=== PATIENT | female | born 1940 | race Caucasian/White ===

== ENCOUNTER → 2018-04-24 14:43 | Outpatient (CLI) | payer MEDICARE, BC, SELFPAY ==
--- NOTE | 2018-04-24 | DI.MG.S_ITS ---
BILATERAL DIGITAL SCREENING MAMMOGRAM 3D/2D WITH CAD: 04/24/2018 CLINICAL: Routine screening. Comparison is made to exams dated: 04/22/2017 mammogram, 04/01/2016 mammogram, and 03/30/2015 mammogram - [facility]. The tissue of both breasts is heterogeneously dense. This may lower the sensitivity of mammography. Current study was also evaluated with a Computer Aided Detection (CAD) system. There is a calcification in the left breast at 1 o'clock posterior depth. No other significant masses, calcifications, or other findings are seen in either breast. IMPRESSION: INCOMPLETE: NEEDS ADDITIONAL IMAGING EVALUATION The calcification in the left breast is indeterminate. Additional views with possible ultrasound are recommended. This exam was interpreted at Station ID: [id number]. NOTE: For mammograms, a report in lay terms will be sent to the patient. Approximately 15% of breast malignancies will not be visualized mammographically. In the management of a palpable breast mass, a negative mammogram must not discourage biopsy of a clinically suspicious lesion. Electronically Signed By: Louis hardy/hazel:04/24/2018 15:43:52 letter sent: Additional Imaging Needed ACR BI-RADS Category 0: Incomplete 3340F
== END ==
PROVIDERS: PCP Internal Medicine; Visit Provider Internal Medicine
DX: Z12.31 Encounter for screening mammogram for malignant neoplasm of breast (principal)
CPT/HCPCS: 77063; 77067

== ENCOUNTER → 2018-05-08 08:43 | Outpatient (CLI) | payer MEDICARE, BC, SELFPAY ==
--- NOTE | 2018-05-08 08:47 | DI.MG.S_ITS ---
UNILATERAL LEFT DIGITAL DIAGNOSTIC MAMMOGRAM 3D/2D WITH ADDITIONAL VIEWS: 05/08/2018 CLINICAL: Additional evaluation requested from prior study. Comparison is made to exams dated: 04/24/2018 mammogram, 04/22/2017 mammogram, and 04/01/2016 mammogram - [facility]. The tissue of the left breast is heterogeneously dense. This may lower the sensitivity of mammography. There is a benign coarse dystrophic calcification in the left breast at 1 o'clock posterior depth. No other significant masses or calcifications are seen in the breast. IMPRESSION: BENIGN There is no mammographic evidence of malignancy. A 1 year screening mammogram is recommended. This exam was interpreted at Station ID: [id number]. NOTE: For mammograms, a report in lay terms will be sent to the patient. Approximately 15% of breast malignancies will not be visualized mammographically. In the management of a palpable breast mass, a negative mammogram must not discourage biopsy of a clinically suspicious lesion. Electronically Signed By: Louis hardy/hazel:05/08/2018 12:40:26 letter sent: Normal Exam ACR BI-RADS Category 2: Benign Finding(s) 3342F
== END ==
PROVIDERS: PCP Internal Medicine; Visit Provider Internal Medicine
DX: R92.1 Mammographic calcification found on diagnostic imaging of breast (principal)
CPT/HCPCS: 77065; G0279

== ENCOUNTER → 2018-07-28 15:55 | Outpatient (CLI) | payer MEDICARE, BC, SELFPAY | PROVIDERS: PCP Internal Medicine; Visit Provider Internal Medicine | DX: N90.4 Leukoplakia of vulva (principal) | CPT/HCPCS: 87070; 87205 ==

== ENCOUNTER → 2018-10-30 08:48 | Outpatient (CLI) | payer MEDICARE, BC, SELFPAY ==
[2018-10-30 12:42] LABS: Appearance Urine UA CLOUDY; Bilirubin Urine UA NEGATIVE (NEGATIVE); Color Urine UA YELLOW; Glucose Urine UA NEGATIVE (Normal); Ketones Urine UA NEGATIVE (NEGATIVE); Leukocyte Esterase Urine UA 2+ (NEGATIVE); Nitrite Urine UA POSITIVE (Negative); Occult Blood Urine UA 1+ (Negative); Protein Urine UA TRACE (Negative); Urobilinogen Urine UA 0.2 E.U./dL (0.2)
[2018-10-30 12:57] LABS: RBC Urine 1-5/HPF (0-5/HPF)
[2018-10-30 12:58] LABS: Amorphous Sediment Urine 1+; Bacteria Urine Many (>30); Culture Indicated Urine Specimen Cultured; Squamous Epithelial Cell Urine 0-1 /HPF; WBC Urine >100/HPF (0-5/HPF)
== END ==
PROVIDERS: PCP Internal Medicine; Visit Provider Registered Nurse
DX: N39.0 Urinary tract infection, site not specified (principal)
CPT/HCPCS: 81001; 87077; 87086; 87186

== ENCOUNTER → 2018-12-08 12:12 | Outpatient (CLI) | payer MEDICARE, BC, SELFPAY ==
--- NOTE | 2018-12-08 12:14 | DI.RAD.S_ITS ---
PROCEDURE: XR KNEE RT 3V INDICATIONS: Bilateral knee pain TECHNIQUE: 3 views of the knee were acquired. COMPARISON: [facility], , KNEE 3V RIGHT, 02/27/2015, 9:56. FINDINGS: Bones: No fractures or dislocations but there is a moderate degree of lateral compartment knee joint osteoarthritis, and a mild degree of patellofemoral joint degenerative change.. No suspicious bony lesions. Soft tissues: No joint effusion. No suspicious soft tissue calcifications. IMPRESSION: No trauma found. 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 It previously was quite mild, and now is moderate. Dictated by: Hilario Crum M.D. on 12/08/2018 at 13:31 Approved by: Hilario Crum M.D. on 12/08/2018 at 13:32
--- NOTE | 2018-12-08 12:14 | DI.RAD.S_ITS ---
PROCEDURE: XR KNEE LT 3V INDICATIONS: Bilateral knee pain TECHNIQUE: Pre-views of the knee were acquired. COMPARISON: [facility], , XR KNEE RT 3V, 12/08/2018, 12:14. [facility], , KNEE 3V RIGHT, 02/27/2015, 9:56. FINDINGS: Bones: No fractures or dislocations, but there is a mild degree of thinning of the lateral facet of the patellofemoral joint. No suspicious bony lesions. Soft tissues: No joint effusion. No suspicious soft tissue calcifications. IMPRESSION: Mild lateral facet patellofemoral joint degenerative osteoarthritis without loose body or joint effusion. No recent trauma found. Dictated by: Hilario Crum M.D. on 12/08/2018 at 13:32 Approved by: Hilario Crum M.D. on 12/08/2018 at 13:33
== END ==
PROVIDERS: PCP Internal Medicine; Visit Provider Registered Nurse
DX: M25.561 Pain in right knee (principal); M25.562 Pain in left knee; M17.0 Bilateral primary osteoarthritis of knee
CPT/HCPCS: 73562

== ENCOUNTER 2019-01-27 12:00 | Outpatient (RCR) | payer MEDICARE, BC, SELFPAY ==
--- NOTE | 2018-12-30 14:30 | PT.OIE ---
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) Pain in right knee (12/30/18) Muscle weakness (generalized) (12/30/18) Past Medical History (Last Reviewed 10/08/18 @ 15:46 by RONA Chavez) Frequent UTI (Chronic) Hearing loss (Chronic) Hyperlipidemia (Chronic) Hypertension (Chronic) Vision disorder (Chronic) Chicken pox (Resolved ~1950) Measles (Resolved ~1950) Mumps (Resolved ~1950) Past Surgical History (Last Reviewed 10/08/18 @ 15:46 by RONA Chavez) Anesthesia (Resolved) Status post hernia repair (~1965) Provider Visit Care Team Role Provider Type RONA Aviles Primary Care Provider Advanced Media Planner / Buyer Specialty: Family Practice Address: [address] [place] [address], [facility] Email: [email or web address] RONA Chavez Attending Provider Advanced Media Planner / Buyer Specialty: Medical Address: [address] [place] [address], [facility] Email: Physical Therapy Initial Evaluation PT-OP-A Visit Information Start: 01/01/19 13:26 Freq: Status: Active Protocol: Document 12/30/18 14:30 RCC (Rec: 01/01/19 13:57 RCC [email or web address]) Out-Patient Physical Therapy Visit Information Visit Information Visit Type Initial Evaluation Visit Start Time 14:30 Visit Stop Time 15:15 Total Visit Minutes 45 Visit Number 1 Number of LIQUOR RUNNER Visits 0 Evaluation Information Evaluation Date 11/29/18 PT-OP-B Current Condition Start: 01/01/19 13:26 Freq: Status: Active Protocol: Document 12/30/18 14:30 RCC (Rec: 01/01/19 13:57 RCC [email or web address]) Current Condition History of Current Condition Onset Date 1 mo. ago (prior h/o injury to R knee when she was a teenager) Current Complaints R knee giving out and intermittent pain History of Current Condition Pt is a 78 y/o female presenting to physical therapy with a c/o 1 mo. R knee intermittent pain and occasional giving out of R knee with standing/walking. Pt has not noticed a pattern or consistency of pain or buckling, but increased frequency over the past mo. She has a h/o R knee injury when ice skating as a teenager , falling and landing on the R knee. 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 Pt denies any new/recent trauma. Prior Treatments and Tests knee radiographs: mild/mod OA Treatment Goals Patient/Caregiver Goals improve R knee stability and return to walking without concern/issues Prior Functional Status Baseline Function- Recreation/Hobbies walking outdoors every day for 1/2 hour Current Functional Impairments (Reported) Functional Limitations- Recreation/ limited walking time and Hobbies distance due to knee concerns. Personal Factors Other Personal Factors That May Effect L sided hearing impairment/ Therapy/Recovery loss PT-OP-C Subjective Start: 01/01/19 13:26 Freq: Status: Active Protocol: Document 12/30/18 14:30 RCC (Rec: 01/01/19 13:57 RCC [email or web address]) OP-PT Subjective Patient Comments Patient Reported Progress Same PT-OP-D Balance Start: 01/01/19 13:26 Freq: Status: Active Protocol: Document 12/30/18 14:30 RCC (Rec: 01/01/19 13:57 RCC [email or web address]) Balance Tests Single Limb Standing Single Limb- Right 15 sec with increased sway (no pain) Single Limb- Left 15 sec PT-OP-F Manual Assessment Start: 01/01/19 13:26 Freq: Status: Active Protocol: Document 12/30/18 14:30 RCC (Rec: 01/01/19 13:57 RCC [email or web address]) Manual Assessments Other Manual Assessments Other Manual Assessments increased lateral joint line swelling of the R knee but no pain to palpation PT-OP-G Mobility & Gait Start: 01/01/19 13:26 Freq: Status: Active Protocol: Document 12/30/18 14:30 RCC (Rec: 01/01/19 13:57 RCC [email or web address]) OP Gait Assessment Comments Gait Comments mild knee flexion with R knee throughout gait (no full extension at IC or throughout stance phase) PT-OP-H Neuro Start: 01/01/19 13:26 Freq: Status: Active Protocol: Document 12/30/18 14:30 RCC (Rec: 01/01/19 13:57 RCC [email or web address]) Sensation Evaluation Gross Sensation Gross Sensation WNL PT-OP-K Range of Motion Start: 01/01/19 13:26 Freq: Status: Active Protocol: Document 12/30/18 14:30 RCC (Rec: 01/01/19 13:57 RCC [email or web address]) Knee Goniometric Range of Motion Knee Measured in Degrees Right Patient Position Supine Flexion Active (degrees) 130 Extension Active (degrees) 0 Left Patient Position Supine Flexion Active (degrees) 130 Extension Active (degrees) 0 PT-OP-L Special Tests Start: 01/01/19 13:26 Freq: Status: Active Protocol: Document 12/30/18 14:30 RCC (Rec: 01/01/19 13:57 [facility] [email or web address]) Special Tests Knee Special Tests step down test Test Results positive R, negative L Patellar Grind Test Test Results negative B Loren Test Test Results negative B Bebe's Test Results negative B Thessaly Test 5 Degrees Test Results negative B Thessaly Test 20 Degrees Test Results negative B Anterior Draw Test Results negative B Varus- 25 Degrees Test Results negative B Varus- 0 Degrees Test Results negative B Valgus- 25 Degrees Test Results negative B Valgus- 0 Degrees Test Results negative B PT-OP-M Strength Start: 01/01/19 13:26 Freq: Status: Active Protocol: Document 12/30/18 14:30 RCC (Rec: 01/01/19 13:57 [facility] [email or web address]) Hip Strength Hip Manual Muscle Testing Right Flexion (L2) 5 Normal External Rotation 4+ Good+ Internal Rotation 4+ Good+ Left Flexion (L2) 5 Normal External Rotation 5 Normal Internal Rotation 5 Normal Knee Strength Knee Manual Muscle Testing Right Flexion (S2) 4+ Good+ Extension (L3) 4+ Good+ Left Flexion (S2) 5 Normal Extension (L3) 5 Normal PT-OP-Q Treatments Start: 01/01/19 13:26 Freq: Status: Active Protocol: Document 12/30/18 14:30 RCC (Rec: 01/01/19 13:57 [facility] [email or web address]) Therapeutic Exercises Supine Exercises quad sets Side right Reps/Minutes x10 Comments 5 sec hold SLR Supine Exercise Name SLR- neutral and ER Side right Reps/Minutes x10 each PT-OP-T Assessment and Plan Start: 01/01/19 13:26 Freq: Status: Active Protocol: Document 12/30/18 14:30 [facility] (Rec: 01/01/19 13:57 RCC [email or web address]) Physical Therapy Assessment Rehab Potential Rehabilitation Potential Good Evaluation Complexity Number of Personal Factors/Comorbidities 1-2 Number of Body Systems Impaired 1-2 Clinical Presentation at Evaluation Stable Impairments Impairments Activity Tolerance Gait Pain Strength Goals RLE strength Gaming Cashier Goal (LTG) R hip IR, ER and knee flexion and extension 5/5 with manual muscle testing prior to d/c. LTG Duration 8 weeks R knee buckling Impairment R knee buckling with walking Mcfp Goal (LTG) pt will report no episodes of R knee buckling with return to walking program 1/2 hr, every day prior to d/c. LTG Duration 8 weeks LEFS Impairment Lower Extremity Functional Scale- 40/80, 50% Short Term Goal (STG) pt will score at least 60% on the LEFS to demonstrate improvements with functional activities. STG Duration 4 weeks Mcfp Goal (LTG) pt will score at least 70% on the LEFS to demonstrate improvements with functional activities. LTG Duration 8 weeks Assessment Summary Assessment Pt presents with (+) signs of mild patellofemoral joint dysfunction, when combined with present R knee OA, likely causing the episodes of occasional buckling of the knee. Pt with negative special testing of all major ligaments of the R knee, and pain appears to be intermittent only. Mild swelling at lateral R knee joint line, but no pain with joint line palpation. Pt will benefit from skilled physical therapy interventions to progress her R knee stability and strength, improve patellofemoral joint mobility (manual therapy), and balance and gait training to assist with return to prior level of function, most importantly to return to daily walking routine. Physical Therapy Plan Frequency and Duration Frequency of Treatment 2x/Week Duration of Treatment 8 weeks Plan of Care Start Date 12/30/18 Plan of Care End Date 02/24/19 Therapeutic Interventions Therapeutic Interventions Aquatic Therapy Balance Training Gait Training Home Exercise Program Joint Mobilizations Manual Therapy Neuromuscular Re-education Orthotic/Prosthetic Management Patient/Caregiver Education Self-Care/Home Management Soft Tissue Mobilization Taping Therapeutic Activities Therapeutic Exercises Modalities Cold Pack/Ice Massage Electric Stimulation Hot Packs Ultrasound Next Visit Focus/Plan Next Note Type Treatment Note Next Visit Plan Shuttle Recovery, gait training with quad activation, TKE, manual therapy
--- NOTE | 2018-12-30 14:30 | PT.OPPOC ---
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 [place], [address] Email: [email or web address] RONA Chavez Attending Provider Advanced Manager Entry Specialty: Medical Address: [facility], [address] Email: Plan Of Care PT-OP-T Assessment and Plan Start: 01/01/19 13:26 Freq: Status: Active Protocol: Document 12/30/18 14:30 RCC (Rec: 01/01/19 13:57 RCC [email or web address]) Physical Therapy Assessment Rehab Potential Rehabilitation Potential Good Evaluation Complexity Number of Personal Factors/Comorbidities 1-2 Number of Body Systems Impaired 1-2 Clinical Presentation at Evaluation Stable Impairments Impairments Activity Tolerance Gait Pain Strength Goals RLE strength Senior Care Goal (LTG) R hip IR, ER and knee flexion and extension 5/5 with manual muscle testing prior to d/c. LTG Duration 8 weeks R knee buckling Impairment R knee buckling with walking [employer] Goal (LTG) pt will report no episodes of R knee buckling with return to walking program 1/2 hr, every day prior to d/c. LTG Duration 8 weeks LEFS Impairment Lower Extremity Functional Scale- 40/80, 50% Short Term Goal (STG) pt will score at least 60% on the LEFS to demonstrate improvements with functional activities. STG Duration 4 weeks Instructor [employer] Goal (LTG) pt will score at least 70% on the LEFS to demonstrate improvements with functional activities. LTG Duration 8 weeks Assessment Summary Assessment Pt presents with (+) signs of mild patellofemoral joint dysfunction, when combined with present R knee OA, likely causing the episodes of occasional buckling of the knee. Pt with negative special testing of all major ligaments of the R knee, and pain appears to be intermittent only. Mild swelling at lateral R knee joint line, but no pain with joint line palpation. Pt will benefit from skilled physical therapy interventions to progress her R knee stability and strength, improve patellofemoral joint mobility (manual therapy), and balance and gait training to assist with return to prior level of function, most importantly to return to daily walking routine. Physical Therapy Plan Frequency and Duration Frequency of Treatment 2x/Week Duration of Treatment 8 weeks Plan of Care Start Date 12/30/18 Plan of Care End Date 02/24/19 Therapeutic Interventions Therapeutic Interventions Aquatic Therapy Balance Training Gait Training Home Exercise Program Joint Mobilizations Manual Therapy Neuromuscular Re-education Orthotic/Prosthetic Management Patient/Caregiver Education Self-Care/Home Management Soft Tissue Mobilization Taping Therapeutic Activities Therapeutic Exercises Modalities Cold Pack/Ice Massage Electric Stimulation Hot Packs Ultrasound Next Visit Focus/Plan Next Note Type Treatment Note Next Visit Plan Shuttle Recovery, gait training with quad activation, TKE, manual therapy Plan of Care Dates Plan of Care Start Date 12/30/18 Plan of Care End Date 02/24/19 Please Sign and Return: I have reviewed this Plan of Care and certify that the skilled therapy services above are required to meet the patient?s needs. Physician Signature Date Printed Name and Credentials Clinical Instructor Signature Printed Name and Credentials
--- NOTE | 2018-12-30 14:30 | PT.OIE ---
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) Pain in right knee (12/30/18) Muscle weakness (generalized) (12/30/18) Past Medical History (Last Reviewed 10/08/18 @ 15:46 by RONA Chavez) Frequent UTI (Chronic) Hearing loss (Chronic) Hyperlipidemia (Chronic) Hypertension (Chronic) Vision disorder (Chronic) Chicken pox (Resolved ~1950) Measles (Resolved ~1950) Mumps (Resolved ~1950) Past Surgical History (Last Reviewed 10/08/18 @ 15:46 by RONA Chavez) Anesthesia (Resolved) Status post hernia repair (~1965) Provider Visit Care Team Role Provider Type RONA Aviles Primary Care Provider Advanced Bonding Machine Setter Specialty: Family Practice Address: [address] [place] [address], [facility] Email: [email or web address] RONA Chavez Attending Provider Advanced Bonding Machine Setter Specialty: Medical Address: [address] [place] [address], [facility] Email: Physical Therapy Initial Evaluation PT-OP-A Visit Information Start: 01/01/19 13:26 Freq: Status: Active Protocol: Document 12/30/18 14:30 RCC (Rec: 01/01/19 13:57 [email or web address]) Out-Patient Physical Therapy Visit Information Visit Information Visit Type Initial Evaluation Visit Start Time 14:30 Visit Stop Time 15:15 Total Visit Minutes 45 Visit Number 1 Number of RESIDENT CARE AIDE Visits 0 Evaluation Information Evaluation Date 11/29/18 PT-OP-B Current Condition Start: 01/01/19 13:26 Freq: Status: Active Protocol: Document 12/30/18 14:30 RCC (Rec: 01/01/19 13:57 RCC [email or web address]) Current Condition History of Current Condition Onset Date 1 mo. ago (prior h/o injury to R knee when she was a teenager) Current Complaints R knee giving out and intermittent pain History of Current Condition Pt is a 78 y/o female presenting to physical therapy with a c/o 1 mo. R knee intermittent pain and occasional giving out of R knee with standing/walking. Pt has not noticed a pattern or consistency of pain or buckling, but increased frequency over the past mo. She has a h/o R knee injury when ice skating as a teenager , falling and landing on the R knee. 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 Pt denies any new/recent trauma. Prior Treatments and Tests knee radiographs: mild/mod OA Treatment Goals Patient/Caregiver Goals improve R knee stability and return to walking without concern/issues Prior Functional Status Baseline Function- Recreation/Hobbies walking outdoors every day for 1/2 hour Current Functional Impairments (Reported) Functional Limitations- Recreation/ limited walking time and Hobbies distance due to knee concerns. Personal Factors Other Personal Factors That May Effect L sided hearing impairment/ Therapy/Recovery loss PT-OP-C Subjective Start: 01/01/19 13:26 Freq: Status: Active Protocol: Document 12/30/18 14:30 RCC (Rec: 01/01/19 13:57 RCC [email or web address]) OP-PT Subjective Patient Comments Patient Reported Progress Same PT-OP-D Balance Start: 01/01/19 13:26 Freq: Status: Active Protocol: Document 12/30/18 14:30 RCC (Rec: 01/01/19 13:57 RCC [email or web address]) Balance Tests Single Limb Standing Single Limb- Right 15 sec with increased sway (no pain) Single Limb- Left 15 sec PT-OP-F Manual Assessment Start: 01/01/19 13:26 Freq: Status: Active Protocol: Document 12/30/18 14:30 RCC (Rec: 01/01/19 13:57 RCC [email or web address]) Manual Assessments Other Manual Assessments Other Manual Assessments increased lateral joint line swelling of the R knee but no pain to palpation PT-OP-G Mobility & Gait Start: 01/01/19 13:26 Freq: Status: Active Protocol: Document 12/30/18 14:30 RCC (Rec: 01/01/19 13:57 RCC [email or web address]) OP Gait Assessment Comments Gait Comments mild knee flexion with R knee throughout gait (no full extension at IC or throughout stance phase) PT-OP-H Neuro Start: 01/01/19 13:26 Freq: Status: Active Protocol: Document 12/30/18 14:30 RCC (Rec: 01/01/19 13:57 RCC [email or web address]) Sensation Evaluation Gross Sensation Gross Sensation WNL PT-OP-K Range of Motion Start: 01/01/19 13:26 Freq: Status: Active Protocol: Document 12/30/18 14:30 RCC (Rec: 01/01/19 13:57 RCC [email or web address]) Knee Goniometric Range of Motion Knee Measured in Degrees Right Patient Position Supine Flexion Active (degrees) 130 Extension Active (degrees) 0 Left Patient Position Supine Flexion Active (degrees) 130 Extension Active (degrees) 0 PT-OP-L Special Tests Start: 01/01/19 13:26 Freq: Status: Active Protocol: Document 12/30/18 14:30 RCC (Rec: 01/01/19 13:57 [facility] [email or web address]) Special Tests Knee Special Tests step down test Test Results positive R, negative L Patellar Grind Test Test Results negative B Loren Test Test Results negative B Bebe's Test Results negative B Thessaly Test 5 Degrees Test Results negative B Thessaly Test 20 Degrees Test Results negative B Anterior Draw Test Results negative B Varus- 25 Degrees Test Results negative B Varus- 0 Degrees Test Results negative B Valgus- 25 Degrees Test Results negative B Valgus- 0 Degrees Test Results negative B PT-OP-M Strength Start: 01/01/19 13:26 Freq: Status: Active Protocol: Document 12/30/18 14:30 RCC (Rec: 01/01/19 13:57 [facility] [email or web address]) Hip Strength Hip Manual Muscle Testing Right Flexion (L2) 5 Normal External Rotation 4+ Good+ Internal Rotation 4+ Good+ Left Flexion (L2) 5 Normal External Rotation 5 Normal Internal Rotation 5 Normal Knee Strength Knee Manual Muscle Testing Right Flexion (S2) 4+ Good+ Extension (L3) 4+ Good+ Left Flexion (S2) 5 Normal Extension (L3) 5 Normal PT-OP-Q Treatments Start: 01/01/19 13:26 Freq: Status: Active Protocol: Document 12/30/18 14:30 RCC (Rec: 01/01/19 13:57 [facility] [email or web address]) Therapeutic Exercises Supine Exercises quad sets Side right Reps/Minutes x10 Comments 5 sec hold SLR Supine Exercise Name SLR- neutral and ER Side right Reps/Minutes x10 each PT-OP-T Assessment and Plan Start: 01/01/19 13:26 Freq: Status: Active Protocol: Document 12/30/18 14:30 [facility] (Rec: 01/01/19 13:57 RCC [email or web address]) Physical Therapy Assessment Rehab Potential Rehabilitation Potential Good Evaluation Complexity Number of Personal Factors/Comorbidities 1-2 Number of Body Systems Impaired 1-2 Clinical Presentation at Evaluation Stable Impairments Impairments Activity Tolerance Gait Pain Strength Goals RLE strength Tax Compliance Manager Goal (LTG) R hip IR, ER and knee flexion and extension 5/5 with manual muscle testing prior to d/c. LTG Duration 8 weeks R knee buckling Impairment R knee buckling with walking Jail Goal (LTG) pt will report no episodes of R knee buckling with return to walking program 1/2 hr, every day prior to d/c. LTG Duration 8 weeks LEFS Impairment Lower Extremity Functional Scale- 40/80, 50% Short Term Goal (STG) pt will score at least 60% on the LEFS to demonstrate improvements with functional activities. STG Duration 4 weeks Jail Goal (LTG) pt will score at least 70% on the LEFS to demonstrate improvements with functional activities. LTG Duration 8 weeks Assessment Summary Assessment Pt presents with (+) signs of mild patellofemoral joint dysfunction, when combined with present R knee OA, likely causing the episodes of occasional buckling of the knee. Pt with negative special testing of all major ligaments of the R knee, and pain appears to be intermittent only. Mild swelling at lateral R knee joint line, but no pain with joint line palpation. Pt will benefit from skilled physical therapy interventions to progress her R knee stability and strength, improve patellofemoral joint mobility (manual therapy), and balance and gait training to assist with return to prior level of function, most importantly to return to daily walking routine. Physical Therapy Plan Frequency and Duration Frequency of Treatment 2x/Week Duration of Treatment 8 weeks Plan of Care Start Date 11/29/18 Plan of Care End Date 02/24/19 Therapeutic Interventions Therapeutic Interventions Aquatic Therapy Balance Training Gait Training Home Exercise Program Joint Mobilizations Manual Therapy Neuromuscular Re-education Orthotic/Prosthetic Management Patient/Caregiver Education Self-Care/Home Management Soft Tissue Mobilization Taping Therapeutic Activities Therapeutic Exercises Modalities Cold Pack/Ice Massage Electric Stimulation Hot Packs Ultrasound Next Visit Focus/Plan Next Note Type Treatment Note Next Visit Plan Shuttle Recovery, gait training with quad activation, TKE, manual therapy
--- NOTE | 2019-01-06 10:30 | PT.OTN ---
Current Diagnoses Pain in right knee (01/06/19) Physical Therapy Treatment Note PT-OP-A Visit Information Start: 01/01/19 13:26 Freq: Status: Active Protocol: Document 01/06/19 10:30 RCC (Rec: 01/06/19 13:09 RCC [email or web address]) Out-Patient Physical Therapy Visit Information Visit Information Visit Type Treatment Note Visit Start Time 10:30 Visit Stop Time 11:14 Total Visit Minutes 44 Visit Number 2 Number of PAUNCH TRIMMER Visits 0 Evaluation Information Evaluation Date 11/29/18 PT-OP-B Current Condition Start: 01/01/19 13:26 Freq: Status: Active Protocol: Document 12/30/18 14:30 RCC (Rec: 01/01/19 13:57 RCC [email or web address]) Current Condition History of Current Condition Onset Date 1 mo. ago (prior h/o injury to R knee when she was a teenager) Current Complaints R knee giving out and intermittent pain History of Current Condition Pt is a 78 y/o female presenting to physical therapy with a c/o 1 mo. R knee intermittent pain and occasional giving out of R knee with standing/walking. Pt has not noticed a pattern or consistency of pain or buckling, but increased frequency over the past mo. She has a h/o R knee injury when ice skating as a teenager , falling and landing on the R knee. 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 Pt denies any new/recent trauma. Prior Treatments and Tests knee radiographs: mild/mod OA Treatment Goals Patient/Caregiver Goals improve R knee stability and return to walking without concern/issues Prior Functional Status Baseline Function- Recreation/Hobbies walking outdoors every day for 1/2 hour Current Functional Impairments (Reported) Functional Limitations- Recreation/ limited walking time and Hobbies distance due to knee concerns. Personal Factors Other Personal Factors That May Effect L sided hearing impairment/ Therapy/Recovery loss PT-OP-C Subjective Start: 01/01/19 13:26 Freq: Status: Active Protocol: Document 01/06/19 10:30 RCC (Rec: 01/06/19 13:09 RCC [email or web address]) OP-PT Subjective Patient Comments Patient Comments Pt has been performing HEP. She states that her knee has felt more stable this week. PT-OP-D Balance Start: 01/01/19 13:26 Freq: Status: Active Protocol: Document 12/30/18 14:30 RCC (Rec: 01/01/19 13:57 RCC [email or web address]) Balance Tests Single Limb Standing Single Limb- Right 15 sec with increased sway (no pain) Single Limb- Left 15 sec PT-OP-F Manual Assessment Start: 01/01/19 13:26 Freq: Status: Active Protocol: Document 12/30/18 14:30 RCC (Rec: 01/01/19 13:57 RCC [email or web address]) Manual Assessments Other Manual Assessments Other Manual Assessments increased lateral joint line swelling of the R knee but no pain to palpation PT-OP-G Mobility & Gait Start: 01/01/19 13:26 Freq: Status: Active Protocol: Document 12/30/18 14:30 RCC (Rec: 01/01/19 13:57 RCC [email or web address]) OP Gait Assessment Comments Gait Comments mild knee flexion with R knee throughout gait (no full extension at IC or throughout stance phase) PT-OP-H Neuro Start: 01/01/19 13:26 Freq: Status: Active Protocol: Document 12/30/18 14:30 RCC (Rec: 01/01/19 13:57 RCC [email or web address]) Sensation Evaluation Gross Sensation Gross Sensation WNL PT-OP-K Range of Motion Start: 01/01/19 13:26 Freq: Status: Active Protocol: Document 12/30/18 14:30 RCC (Rec: 01/01/19 13:57 RCC [email or web address]) Knee Goniometric Range of Motion Knee Measured in Degrees Right Patient Position Supine Flexion Active (degrees) 130 Extension Active (degrees) 0 Left Patient Position Supine Flexion Active (degrees) 130 Extension Active (degrees) 0 PT-OP-L Special Tests Start: 01/01/19 13:26 Freq: Status: Active Protocol: Document 12/30/18 14:30 RCC (Rec: 01/01/19 13:57 RCC [email or web address]) Special Tests Knee Special Tests step down test Test Results positive R, negative L Patellar Grind Test Test Results negative B Loren Test Test Results negative B Bebe's Test Results negative B Thessaly Test 5 Degrees Test Results negative B Thessaly Test 20 Degrees Test Results negative B Anterior Draw Test Results negative B Varus- 25 Degrees Test Results negative B Varus- 0 Degrees Test Results negative B Valgus- 25 Degrees Test Results negative B Valgus- 0 Degrees Test Results negative B PT-OP-M Strength Start: 01/01/19 13:26 Freq: Status: Active Protocol: Document 12/30/18 14:30 RCC (Rec: 01/01/19 13:57 RCC [email or web address]) Hip Strength Hip Manual Muscle Testing Right Flexion (L2) 5 Normal External Rotation 4+ Good+ Internal Rotation 4+ Good+ Left Flexion (L2) 5 Normal External Rotation 5 Normal Internal Rotation 5 Normal Knee Strength Knee Manual Muscle Testing Right Flexion (S2) 4+ Good+ Extension (L3) 4+ Good+ Left Flexion (S2) 5 Normal Extension (L3) 5 Normal PT-OP-Q Treatments Start: 01/01/19 13:26 Freq: Status: Active Protocol: Document 01/06/19 10:30 RCC (Rec: 01/06/19 13:09 RCC [email or web address]) Gym Equipment Shuttle Recovery Bilateral Squats Details emphasis with body mechanics Resistance 50 lbs Shuttle Recovery Platform Stable Reps/Time 2x15 Therapeutic Exercises Standing Exercises QS Side right Reps/Minutes x10 Comments standing vs wall TKE Side right Resistance L3 Reps/Minutes x25 Manual Therapy Treatment Soft Tissue Mobilization R lateral knee Body Location R lateral knee @ joint line, distal IT band Mobilization Type Myofascial Release Rolling Intensity/Depth Moderate Body Position Supine Joint Mobilizations tibiofemoral Joint R Direction PA femur on tibia Grade III Body Position Supine PF Joint R patellofemoral Direction superior, medial Grade IV Body Position Supine Taping 1 Body Location R knee- medial patellar glide, I strip @ joint line Type of Tape Kinesio Tape PT-OP-T Assessment and Plan Start: 01/01/19 13:26 Freq: Status: Active Protocol: Document 01/06/19 10:30 RCC (Rec: 01/06/19 13:09 RCC [email or web address]) Physical Therapy Assessment Assessment Summary Assessment Pt with improved quadriceps activation in standing with tactile cuing. R knee with greater valgus alignment compared to the L, difficulty with maintaining proper alignment with Shuttle Recovery. Physical Therapy Plan Frequency and Duration Frequency of Treatment 2x/Week Duration of Treatment 8 weeks Plan of Care Start Date 12/30/18 Plan of Care End Date 02/24/19 Next Visit Focus/Plan Next Note Type Treatment Note Next Visit Plan hip IR/ER strengthening, cont. to address knee alignment.
--- NOTE | 2019-01-13 14:30 | PT.OTN ---
Current Diagnoses Pain in right knee (01/13/19) Physical Therapy Treatment Note PT-OP-A Visit Information Start: 01/01/19 13:26 Freq: Status: Active Protocol: Document 01/13/19 14:30 RCC (Rec: 01/14/19 10:04 RCC [email or web address]) Out-Patient Physical Therapy Visit Information Visit Information Visit Type Treatment Note Visit Start Time 14:30 Visit Stop Time 15:10 Total Visit Minutes 40 Visit Number 3 Number of TOWN MANAGER Visits 0 Evaluation Information Evaluation Date 11/29/18 PT-OP-B Current Condition Start: 01/01/19 13:26 Freq: Status: Active Protocol: Document 12/30/18 14:30 RCC (Rec: 01/01/19 13:57 RCC [email or web address]) Current Condition History of Current Condition Onset Date 1 mo. ago (prior h/o injury to R knee when she was a teenager) Current Complaints R knee giving out and intermittent pain History of Current Condition Pt is a 78 y/o female presenting to physical therapy with a c/o 1 mo. R knee intermittent pain and occasional giving out of R knee with standing/walking. Pt has not noticed a pattern or consistency of pain or buckling, but increased frequency over the past mo. She has a h/o R knee injury when ice skating as a teenager , falling and landing on the R knee. 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 Pt denies any new/recent trauma. Prior Treatments and Tests knee radiographs: mild/mod OA Treatment Goals Patient/Caregiver Goals improve R knee stability and return to walking without concern/issues Prior Functional Status Baseline Function- Recreation/Hobbies walking outdoors every day for 1/2 hour Current Functional Impairments (Reported) Functional Limitations- Recreation/ limited walking time and Hobbies distance due to knee concerns. Personal Factors Other Personal Factors That May Effect L sided hearing impairment/ Therapy/Recovery loss PT-OP-C Subjective Start: 01/01/19 13:26 Freq: Status: Active Protocol: Document 01/13/19 14:30 RCC (Rec: 01/14/19 10:04 RCC [email or web address]) OP-PT Subjective Patient Comments Patient Comments Pt reports that the Kinesiotape was tough to get off, she did not feel a major difference with it on. Overall , she denies any R knee buckling the past week. PT-OP-D Balance Start: 01/01/19 13:26 Freq: Status: Active Protocol: Document 12/30/18 14:30 RCC (Rec: 01/01/19 13:57 RCC [email or web address]) Balance Tests Single Limb Standing Single Limb- Right 15 sec with increased sway (no pain) Single Limb- Left 15 sec PT-OP-F Manual Assessment Start: 01/01/19 13:26 Freq: Status: Active Protocol: Document 01/13/19 14:30 RCC (Rec: 01/14/19 10:04 RCC [email or web address]) Manual Assessments Joint Mobility Assessment Joint Mobility Assessment mild hypomobile patellar glide medially. PT-OP-G Mobility & Gait Start: 01/01/19 13:26 Freq: Status: Active Protocol: Document 12/30/18 14:30 RCC (Rec: 01/01/19 13:57 RCC [email or web address]) OP Gait Assessment Comments Gait Comments mild knee flexion with R knee throughout gait (no full extension at IC or throughout stance phase) PT-OP-H Neuro Start: 01/01/19 13:26 Freq: Status: Active Protocol: Document 12/30/18 14:30 RCC (Rec: 01/01/19 13:57 RCC [email or web address]) Sensation Evaluation Gross Sensation Gross Sensation WNL PT-OP-K Range of Motion Start: 01/01/19 13:26 Freq: Status: Active Protocol: Document 12/30/18 14:30 RCC (Rec: 01/01/19 13:57 RCC [email or web address]) Knee Goniometric Range of Motion Knee Measured in Degrees Right Patient Position Supine Flexion Active (degrees) 130 Extension Active (degrees) 0 Left Patient Position Supine Flexion Active (degrees) 130 Extension Active (degrees) 0 PT-OP-L Special Tests Start: 01/01/19 13:26 Freq: Status: Active Protocol: Document 12/30/18 14:30 RCC (Rec: 01/01/19 13:57 RCC [email or web address]) Special Tests Knee Special Tests step down test Test Results positive R, negative L Patellar Grind Test Test Results negative B Loren Test Test Results negative B Bebe's Test Results negative B Thessaly Test 5 Degrees Test Results negative B Thessaly Test 20 Degrees Test Results negative B Anterior Draw Test Results negative B Varus- 25 Degrees Test Results negative B Varus- 0 Degrees Test Results negative B Valgus- 25 Degrees Test Results negative B Valgus- 0 Degrees Test Results negative B PT-OP-M Strength Start: 01/01/19 13:26 Freq: Status: Active Protocol: Document 12/30/18 14:30 RCC (Rec: 01/01/19 13:57 RCC [email or web address]) Hip Strength Hip Manual Muscle Testing Right Flexion (L2) 5 Normal External Rotation 4+ Good+ Internal Rotation 4+ Good+ Left Flexion (L2) 5 Normal External Rotation 5 Normal Internal Rotation 5 Normal Knee Strength Knee Manual Muscle Testing Right Flexion (S2) 4+ Good+ Extension (L3) 4+ Good+ Left Flexion (S2) 5 Normal Extension (L3) 5 Normal PT-OP-Q Treatments Start: 01/01/19 13:26 Freq: Status: Active Protocol: Document 01/13/19 14:30 RCC (Rec: 01/14/19 10:04 RCC [email or web address]) Gym Equipment Shuttle Recovery Unilateral Squats Details emphasis on knee alignment Resistance 25 lbs Shuttle Recovery Platform Stable Reps/Time x15 Bilateral Squats Details emphasis on knee alignment Resistance 50 lbs Shuttle Recovery Platform Stable Reps/Time 2x15 Therapeutic Exercises Supine Exercises quad sets Side right Reps/Minutes x10 Comments 5 sec hold SLR Supine Exercise Name SLR- neutral and ER Side right Reps/Minutes x10 each Standing Exercises resisted walk Standing Exercise Name lateral Side bilateral Resistance teal Reps/Minutes 2 laps each Manual Therapy Treatment Soft Tissue Mobilization R lateral knee Body Location R lateral knee @ joint line, distal IT band Mobilization Type Myofascial Release Rolling Intensity/Depth Moderate Body Position Supine Joint Mobilizations tibiofemoral Joint R Direction PA femur on tibia Grade IV Body Position Supine PF Joint R patellofemoral Direction superior, medial Grade IV Body Position Supine PT-OP-T Assessment and Plan Start: 01/01/19 13:26 Freq: Status: Active Protocol: Document 01/13/19 14:30 RCC (Rec: 01/14/19 10:04 RCC [email or web address]) Physical Therapy Assessment Assessment Summary Assessment Pt with greater mobility with medial glide of the R patella today, and denies pain with mobilization. Pt able to tolerate SL leg press with cuing for knee alignment greatest on the R, with the tendency to fall into genu valgus without quadriceps activation. Physical Therapy Plan Frequency and Duration Frequency of Treatment 2x/Week Duration of Treatment 8 weeks Plan of Care Start Date 12/30/18 Plan of Care End Date 02/24/19 Next Visit Focus/Plan Next Note Type Treatment Note Next Visit Plan progress quad activation in standing and hip strengthening .
--- NOTE | 2019-01-15 11:18 | PT.OTN ---
Current Diagnoses Pain in right knee (01/15/19) Physical Therapy Treatment Note PT-OP-A Visit Information Start: 01/01/19 13:26 Freq: Status: Active Protocol: Document 01/15/19 11:18 [facility] (Rec: 01/15/19 13:40 [email or web address]) Out-Patient Physical Therapy Visit Information Visit Information Visit Type Treatment Note Visit Start Time 11:18 Visit Stop Time 12:00 Total Visit Minutes 42 Visit Number 4 Number of HANDS AND DIAL INSPECTOR Visits 0 Evaluation Information Evaluation Date 11/29/18 PT-OP-B Current Condition Start: 01/01/19 13:26 Freq: Status: Active Protocol: Document 12/30/18 14:30 [facility] (Rec: 01/01/19 13:57 [facility] [email or web address]) Current Condition History of Current Condition Onset Date 1 mo. ago (prior h/o injury to R knee when she was a teenager) Current Complaints R knee giving out and intermittent pain History of Current Condition Pt is a 78 y/o female presenting to physical therapy with a c/o 1 mo. R knee intermittent pain and occasional giving out of R knee with standing/walking. Pt has not noticed a pattern or consistency of pain or buckling, but increased frequency over the past mo. She has a h/o R knee injury when ice skating as a teenager , falling and landing on the R knee. 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 Pt denies any new/recent trauma. Prior Treatments and Tests knee radiographs: mild/mod OA Treatment Goals Patient/Caregiver Goals improve R knee stability and return to walking without concern/issues Prior Functional Status Baseline Function- Recreation/Hobbies walking outdoors every day for 1/2 hour Current Functional Impairments (Reported) Functional Limitations- Recreation/ limited walking time and Hobbies distance due to knee concerns. Personal Factors Other Personal Factors That May Effect L sided hearing impairment/ Therapy/Recovery loss PT-OP-C Subjective Start: 01/01/19 13:26 Freq: Status: Active Protocol: Document 01/15/19 11:18 RCC (Rec: 01/15/19 13:40 [facility] [email or web address]) OP-PT Subjective Patient Comments Patient Comments Pt states that she has noticed that knee is more stable with walking, denies buckling but does note that when she sits with R knee straight for a prolonged period of time, upon flexing her knee it grinds a little bit. PT-OP-D Balance Start: 01/01/19 13:26 Freq: Status: Active Protocol: Document 12/30/18 14:30 [facility] (Rec: 01/01/19 13:57 [facility] [email or web address]) Balance Tests Single Limb Standing Single Limb- Right 15 sec with increased sway (no pain) Single Limb- Left 15 sec PT-OP-F Manual Assessment Start: 01/01/19 13:26 Freq: Status: Active Protocol: Document 01/13/19 14:30 RCC (Rec: 01/14/19 10:04 [facility] [email or web address]) Manual Assessments Joint Mobility Assessment Joint Mobility Assessment mild hypomobile patellar glide medially. PT-OP-G Mobility & Gait Start: 01/01/19 13:26 Freq: Status: Active Protocol: Document 12/30/18 14:30 RCC (Rec: 01/01/19 13:57 [facility] [email or web address]) OP Gait Assessment Comments Gait Comments mild knee flexion with R knee throughout gait (no full extension at IC or throughout stance phase) PT-OP-H Neuro Start: 01/01/19 13:26 Freq: Status: Active Protocol: Document 12/30/18 14:30 RCC (Rec: 01/01/19 13:57 [facility] [email or web address]) Sensation Evaluation Gross Sensation Gross Sensation WNL PT-OP-K Range of Motion Start: 01/01/19 13:26 Freq: Status: Active Protocol: Document 01/15/19 11:18 RCC (Rec: 01/15/19 13:40 [facility] [email or web address]) Knee Goniometric Range of Motion Knee Measured in Degrees Right Patient Position Supine Flexion Active (degrees) 132 Extension Active (degrees) 0 PT-OP-L Special Tests Start: 01/01/19 13:26 Freq: Status: Active Protocol: Document 12/30/18 14:30 RCC (Rec: 01/01/19 13:57 [facility] [email or web address]) Special Tests Knee Special Tests step down test Test Results positive R, negative L Patellar Grind Test Test Results negative B Loren Test Test Results negative B Bebe's Test Results negative B Thessaly Test 5 Degrees Test Results negative B Thessaly Test 20 Degrees Test Results negative B Anterior Draw Test Results negative B Varus- 25 Degrees Test Results negative B Varus- 0 Degrees Test Results negative B Valgus- 25 Degrees Test Results negative B Valgus- 0 Degrees Test Results negative B PT-OP-M Strength Start: 01/01/19 13:26 Freq: Status: Active Protocol: Document 12/30/18 14:30 RCC (Rec: 01/01/19 13:57 [facility] [email or web address]) Hip Strength Hip Manual Muscle Testing Right Flexion (L2) 5 Normal External Rotation 4+ Good+ Internal Rotation 4+ Good+ Left Flexion (L2) 5 Normal External Rotation 5 Normal Internal Rotation 5 Normal Knee Strength Knee Manual Muscle Testing Right Flexion (S2) 4+ Good+ Extension (L3) 4+ Good+ Left Flexion (S2) 5 Normal Extension (L3) 5 Normal PT-OP-Q Treatments Start: 01/01/19 13:26 Freq: Status: Active Protocol: Document 01/15/19 11:18 RCC (Rec: 01/15/19 13:40 [facility] [email or web address]) Gym Equipment Shuttle Recovery Bilateral Squats Details emphasis on knee alignment Resistance 62 lbs Shuttle Recovery Platform Stable Reps/Time 2x15 Therapeutic Exercises Supine Exercises quad sets Side right Reps/Minutes x10 Comments 5 sec hold Standing Exercises HS stretch Side bilateral Equipment Used stairs Reps/Minutes 2x30 sec Manual Therapy Treatment Soft Tissue Mobilization R lateral knee Body Location R lateral knee @ joint line, distal IT band Mobilization Type Myofascial Release Rolling Intensity/Depth Moderate Body Position Supine Joint Mobilizations tibiofemoral Joint R Direction PA femur on tibia Grade IV Body Position Supine PF Joint R patellofemoral Direction superior, medial, inferior Grade IV Body Position Supine PT-OP-T Assessment and Plan Start: 01/01/19 13:26 Freq: Status: Active Protocol: Document 01/15/19 11:18 RCC (Rec: 01/15/19 13:40 [facility] [email or web address]) Physical Therapy Assessment Assessment Summary Assessment Pt with increased R knee flexion to 132 degrees today, and no buckling or instability with Shuttle Recovery leg press. Pt with greater functional knee extension with gait after manual therapy, but still with genu valgus in standing position. Physical Therapy Plan Frequency and Duration Frequency of Treatment 2x/Week Duration of Treatment 8 weeks Plan of Care Start Date 12/30/18 Plan of Care End Date 02/24/19 Next Visit Focus/Plan Next Note Type Treatment Note Next Visit Plan hip IR, ER, Abd and extension strengthening (add to HEP)
--- NOTE | 2019-01-20 12:00 | PT.OTN ---
Current Diagnoses Pain in right knee (01/20/19) Physical Therapy Treatment Note PT-OP-A Visit Information Start: 01/01/19 13:26 Freq: Status: Active Protocol: Document 01/20/19 12:00 RCC (Rec: 01/20/19 12:54 RCC [email or web address]) Out-Patient Physical Therapy Visit Information Visit Information Visit Type Treatment Note Visit Start Time 12:00 Visit Stop Time 12:42 Total Visit Minutes 42 Visit Number 5 Number of EMERGENCY MANAGEMENT SYSTEM DIRECTOR Visits 0 Evaluation Information Evaluation Date 11/29/18 PT-OP-B Current Condition Start: 01/01/19 13:26 Freq: Status: Active Protocol: Document 12/30/18 14:30 RCC (Rec: 01/01/19 13:57 RCC [email or web address]) Current Condition History of Current Condition Onset Date 1 mo. ago (prior h/o injury to R knee when she was a teenager) Current Complaints R knee giving out and intermittent pain History of Current Condition Pt is a 78 y/o female presenting to physical therapy with a c/o 1 mo. R knee intermittent pain and occasional giving out of R knee with standing/walking. Pt has not noticed a pattern or consistency of pain or buckling, but increased frequency over the past mo. She has a h/o R knee injury when ice skating as a teenager , falling and landing on the R knee. 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 Pt denies any new/recent trauma. Prior Treatments and Tests knee radiographs: mild/mod OA Treatment Goals Patient/Caregiver Goals improve R knee stability and return to walking without concern/issues Prior Functional Status Baseline Function- Recreation/Hobbies walking outdoors every day for 1/2 hour Current Functional Impairments (Reported) Functional Limitations- Recreation/ limited walking time and Hobbies distance due to knee concerns. Personal Factors Other Personal Factors That May Effect L sided hearing impairment/ Therapy/Recovery loss PT-OP-C Subjective Start: 01/01/19 13:26 Freq: Status: Active Protocol: Document 01/20/19 12:00 RCC (Rec: 01/20/19 12:54 RCC [email or web address]) OP-PT Subjective Patient Comments Patient Comments Pt states she has been more aware of not sitting with her R leg extended to avoid the grinding that happens, but has noticed her R knee locks somewhat when sitting with R leg crossed over the L thigh. PT-OP-D Balance Start: 01/01/19 13:26 Freq: Status: Active Protocol: Document 12/30/18 14:30 RCC (Rec: 01/01/19 13:57 [facility] [email or web address]) Balance Tests Single Limb Standing Single Limb- Right 15 sec with increased sway (no pain) Single Limb- Left 15 sec PT-OP-F Manual Assessment Start: 01/01/19 13:26 Freq: Status: Active Protocol: Document 01/20/19 12:00 RCC (Rec: 01/20/19 12:54 [facility] [email or web address]) Manual Assessments Joint Mobility Assessment Joint Mobility Assessment mild hypomobile patellar glide medially. Other Manual Assessments Other Manual Assessments (+) crepitus with R hip IR PT-OP-G Mobility & Gait Start: 01/01/19 13:26 Freq: Status: Active Protocol: Document 12/30/18 14:30 RCC (Rec: 01/01/19 13:57 [facility] [email or web address]) OP Gait Assessment Comments Gait Comments mild knee flexion with R knee throughout gait (no full extension at IC or throughout stance phase) PT-OP-H Neuro Start: 01/01/19 13:26 Freq: Status: Active Protocol: Document 12/30/18 14:30 RCC (Rec: 01/01/19 13:57 [facility] [email or web address]) Sensation Evaluation Gross Sensation Gross Sensation WNL PT-OP-K Range of Motion Start: 01/01/19 13:26 Freq: Status: Active Protocol: Document 01/15/19 11:18 RCC (Rec: 01/15/19 13:40 RCC [email or web address]) Knee Goniometric Range of Motion Knee Measured in Degrees Right Patient Position Supine Flexion Active (degrees) 132 Extension Active (degrees) 0 PT-OP-L Special Tests Start: 01/01/19 13:26 Freq: Status: Active Protocol: Document 12/30/18 14:30 RCC (Rec: 01/01/19 13:57 [facility] [email or web address]) Special Tests Knee Special Tests step down test Test Results positive R, negative L Patellar Grind Test Test Results negative B Loren Test Test Results negative B Bebe's Test Results negative B Thessaly Test 5 Degrees Test Results negative B Thessaly Test 20 Degrees Test Results negative B Anterior Draw Test Results negative B Varus- 25 Degrees Test Results negative B Varus- 0 Degrees Test Results negative B Valgus- 25 Degrees Test Results negative B Valgus- 0 Degrees Test Results negative B PT-OP-M Strength Start: 01/01/19 13:26 Freq: Status: Active Protocol: Document 12/30/18 14:30 RCC (Rec: 01/01/19 13:57 [facility] [email or web address]) Hip Strength Hip Manual Muscle Testing Right Flexion (L2) 5 Normal External Rotation 4+ Good+ Internal Rotation 4+ Good+ Left Flexion (L2) 5 Normal External Rotation 5 Normal Internal Rotation 5 Normal Knee Strength Knee Manual Muscle Testing Right Flexion (S2) 4+ Good+ Extension (L3) 4+ Good+ Left Flexion (S2) 5 Normal Extension (L3) 5 Normal PT-OP-Q Treatments Start: 01/01/19 13:26 Freq: Status: Active Protocol: Document 01/20/19 12:00 RCC (Rec: 01/20/19 12:54 [facility] [email or web address]) Gym Equipment Shuttle Recovery Unilateral Squats Details emphasis on knee alignment Resistance 25 lbs Shuttle Recovery Platform Stable Reps/Time x15 Bilateral Squats Details emphasis on knee alignment Resistance 62 lbs Shuttle Recovery Platform Stable Reps/Time 2x15 Therapeutic Exercises Sitting Exercises Hip IR and ER Side right Resistance L1 Reps/Minutes x10 each Manual Therapy Treatment Soft Tissue Mobilization R lateral knee Body Location R lateral knee @ joint line, distal IT band Mobilization Type Myofascial Release Rolling Intensity/Depth Moderate Body Position Supine Joint Mobilizations PF Joint R patellofemoral Direction superior, medial, inferior Grade IV Body Position Supine Manual Techniques MWM Type medial patellar glide with QS (neutral and ER RLE) and HS sets Body Location R knee Body Position Supine Reps/Duration x10 reps each PT-OP-T Assessment and Plan Start: 01/01/19 13:26 Freq: Status: Active Protocol: Document 01/20/19 12:00 RCC (Rec: 01/20/19 12:54 [facility] [email or web address]) Physical Therapy Assessment Assessment Summary Assessment Pt with positive crepitus noted with initial R hip IR with resistance, but only occurred on first repetition. Pt with tendency of excessive lateral glide of patella with quadriceps activation but no pain with mobilizations of the R patella with movement/ muscle activation. Physical Therapy Plan Frequency and Duration Frequency of Treatment 2x/Week Duration of Treatment 8 weeks Plan of Care Start Date 12/30/18 Plan of Care End Date 02/24/19 Next Visit Focus/Plan Next Note Type Treatment Note Next Visit Plan assess tolerance to MWM and patella mobilizations. Cont to advance hip strength, medial quads, and body mechanics
--- NOTE | 2019-01-22 14:30 | PT.OTN ---
Current Diagnoses Pain in right knee (01/22/19) Physical Therapy Treatment Note PT-OP-A Visit Information Start: 01/01/19 13:26 Freq: Status: Active Protocol: Document 01/22/19 14:30 RCC (Rec: 01/24/19 12:30 RCC [email or web address]) Out-Patient Physical Therapy Visit Information Visit Information Visit Type Treatment Note Visit Start Time 14:30 Visit Stop Time 15:13 Total Visit Minutes 43 Visit Number 6 Number of WELDING EQUIPMENT REPAIRER SUPERVISOR Visits 0 Evaluation Information Evaluation Date 11/29/18 PT-OP-B Current Condition Start: 01/01/19 13:26 Freq: Status: Active Protocol: Document 12/30/18 14:30 RCC (Rec: 01/01/19 13:57 RCC [email or web address]) Current Condition History of Current Condition Onset Date 1 mo. ago (prior h/o injury to R knee when she was a teenager) Current Complaints R knee giving out and intermittent pain History of Current Condition Pt is a 78 y/o female presenting to physical therapy with a c/o 1 mo. R knee intermittent pain and occasional giving out of R knee with standing/walking. Pt has not noticed a pattern or consistency of pain or buckling, but increased frequency over the past mo. She has a h/o R knee injury when ice skating as a teenager , falling and landing on the R knee. 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 Pt denies any new/recent trauma. Prior Treatments and Tests knee radiographs: mild/mod OA Treatment Goals Patient/Caregiver Goals improve R knee stability and return to walking without concern/issues Prior Functional Status Baseline Function- Recreation/Hobbies walking outdoors every day for 1/2 hour Current Functional Impairments (Reported) Functional Limitations- Recreation/ limited walking time and Hobbies distance due to knee concerns. Personal Factors Other Personal Factors That May Effect L sided hearing impairment/ Therapy/Recovery loss PT-OP-C Subjective Start: 01/01/19 13:26 Freq: Status: Active Protocol: Document 01/22/19 14:30 RCC (Rec: 01/24/19 12:30 [facility] [email or web address]) OP-PT Subjective Patient Comments Patient Comments Pt with no new complaints today, denies pain. PT-OP-D Balance Start: 01/01/19 13:26 Freq: Status: Active Protocol: Document 12/30/18 14:30 RCC (Rec: 01/01/19 13:57 [facility] [email or web address]) Balance Tests Single Limb Standing Single Limb- Right 15 sec with increased sway (no pain) Single Limb- Left 15 sec PT-OP-F Manual Assessment Start: 01/01/19 13:26 Freq: Status: Active Protocol: Document 01/22/19 14:30 RCC (Rec: 01/24/19 12:30 RCC [email or web address]) Manual Assessments Joint Mobility Assessment Joint Mobility Assessment mild hypomobile patellar glide medially. PT-OP-G Mobility & Gait Start: 01/01/19 13:26 Freq: Status: Active Protocol: Document 12/30/18 14:30 RCC (Rec: 01/01/19 13:57 RCC [email or web address]) OP Gait Assessment Comments Gait Comments mild knee flexion with R knee throughout gait (no full extension at IC or throughout stance phase) PT-OP-H Neuro Start: 01/01/19 13:26 Freq: Status: Active Protocol: Document 12/30/18 14:30 RCC (Rec: 01/01/19 13:57 RCC [email or web address]) Sensation Evaluation Gross Sensation Gross Sensation WNL PT-OP-K Range of Motion Start: 01/01/19 13:26 Freq: Status: Active Protocol: Document 01/15/19 11:18 RCC (Rec: 01/15/19 13:40 RCC [email or web address]) Knee Goniometric Range of Motion Knee Measured in Degrees Right Patient Position Supine Flexion Active (degrees) 132 Extension Active (degrees) 0 PT-OP-L Special Tests Start: 01/01/19 13:26 Freq: Status: Active Protocol: Document 12/30/18 14:30 RCC (Rec: 01/01/19 13:57 RCC [email or web address]) Special Tests Knee Special Tests step down test Test Results positive R, negative L Patellar Grind Test Test Results negative B Loren Test Test Results negative B Bebe's Test Results negative B Thessaly Test 5 Degrees Test Results negative B Thessaly Test 20 Degrees Test Results negative B Anterior Draw Test Results negative B Varus- 25 Degrees Test Results negative B Varus- 0 Degrees Test Results negative B Valgus- 25 Degrees Test Results negative B Valgus- 0 Degrees Test Results negative B PT-OP-M Strength Start: 01/01/19 13:26 Freq: Status: Active Protocol: Document 12/30/18 14:30 RCC (Rec: 01/01/19 13:57 RCC [email or web address]) Hip Strength Hip Manual Muscle Testing Right Flexion (L2) 5 Normal External Rotation 4+ Good+ Internal Rotation 4+ Good+ Left Flexion (L2) 5 Normal External Rotation 5 Normal Internal Rotation 5 Normal Knee Strength Knee Manual Muscle Testing Right Flexion (S2) 4+ Good+ Extension (L3) 4+ Good+ Left Flexion (S2) 5 Normal Extension (L3) 5 Normal PT-OP-Q Treatments Start: 01/01/19 13:26 Freq: Status: Active Protocol: Document 01/22/19 14:30 RCC (Rec: 01/24/19 12:30 RCC [email or web address]) Gym Equipment Cable Column (Body Solid) Leg Curl Resistance 30 lbs Reps/Time x15 Shuttle Recovery Unilateral Squats Details emphasis on knee alignment Resistance 25 lbs Shuttle Recovery Platform Stable Reps/Time x15 Bilateral Squats Details emphasis on knee alignment Resistance 62 lbs Shuttle Recovery Platform Stable Reps/Time 2x15 Therapeutic Exercises Supine Exercises SLR Supine Exercise Name SLR- neutral and ER Side right Reps/Minutes x10 each Standing Exercises step up Standing Exercise Name step up on BOSU (blue) Side bilateral Equipment Used stair rails for UE support Reps/Minutes x10 each HS stretch Side bilateral Equipment Used stairs Reps/Minutes 2x30 sec Manual Therapy Treatment Soft Tissue Mobilization R lateral knee Body Location R lateral knee @ joint line, distal IT band Mobilization Type Myofascial Release Rolling Intensity/Depth Moderate Body Position Supine Joint Mobilizations PF Joint R patellofemoral Direction superior, medial, inferior Grade IV Body Position Supine Manual Techniques MWM Type medial patellar glide with QS (neutral and ER RLE) and HS sets Body Location R knee Body Position Supine Reps/Duration x10 reps each PT-OP-T Assessment and Plan Start: 01/01/19 13:26 Freq: Status: Active Protocol: Document 01/22/19 14:30 RCC (Rec: 01/24/19 12:30 RCC [email or web address]) Physical Therapy Assessment Assessment Summary Assessment Pt still presenting with impaired patellar mobility, particularly with medial gliding, but is improving with R knee alignment with exercise. Physical Therapy Plan Frequency and Duration Frequency of Treatment 2x/Week Duration of Treatment 8 weeks Plan of Care Start Date 12/30/18 Plan of Care End Date 02/24/19 Next Visit Focus/Plan Next Note Type Treatment Note Next Visit Plan prog. hip and quadriceps strengthening, manual therapy for ROM and joint mobility
--- NOTE | 2019-01-27 12:00 | PT.OTN ---
Current Diagnoses Pain in right knee (01/27/19) Physical Therapy Treatment Note PT-OP-A Visit Information Start: 01/01/19 13:26 Freq: Status: Active Protocol: Document 01/27/19 12:00 RCC (Rec: 01/27/19 13:34 RCC [email or web address]) Out-Patient Physical Therapy Visit Information Visit Information Visit Type Treatment Note Visit Start Time 12:00 Visit Stop Time 12:46 Total Visit Minutes 46 Visit Number 7 Number of IRON LAUNDER OPERATOR Visits 0 Evaluation Information Evaluation Date 11/29/18 PT-OP-B Current Condition Start: 01/01/19 13:26 Freq: Status: Active Protocol: Document 12/30/18 14:30 RCC (Rec: 01/01/19 13:57 RCC [email or web address]) Current Condition History of Current Condition Onset Date 1 mo. ago (prior h/o injury to R knee when she was a teenager) Current Complaints R knee giving out and intermittent pain History of Current Condition Pt is a 78 y/o female presenting to physical therapy with a c/o 1 mo. R knee intermittent pain and occasional giving out of R knee with standing/walking. Pt has not noticed a pattern or consistency of pain or buckling, but increased frequency over the past mo. She has a h/o R knee injury when ice skating as a teenager , falling and landing on the R knee. 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 Pt denies any new/recent trauma. Prior Treatments and Tests knee radiographs: mild/mod OA Treatment Goals Patient/Caregiver Goals improve R knee stability and return to walking without concern/issues Prior Functional Status Baseline Function- Recreation/Hobbies walking outdoors every day for 1/2 hour Current Functional Impairments (Reported) Functional Limitations- Recreation/ limited walking time and Hobbies distance due to knee concerns. Personal Factors Other Personal Factors That May Effect L sided hearing impairment/ Therapy/Recovery loss PT-OP-C Subjective Start: 01/01/19 13:26 Freq: Status: Active Protocol: Document 01/27/19 12:00 RCC (Rec: 01/27/19 13:34 RCC [email or web address]) OP-PT Subjective Patient Comments Patient Comments Pt states that she has been noticing that her R knee is not locking as often, denies pain. Patient Reported Progress Improving PT-OP-D Balance Start: 01/01/19 13:26 Freq: Status: Active Protocol: Document 12/30/18 14:30 RCC (Rec: 01/01/19 13:57 RCC [email or web address]) Balance Tests Single Limb Standing Single Limb- Right 15 sec with increased sway (no pain) Single Limb- Left 15 sec PT-OP-F Manual Assessment Start: 01/01/19 13:26 Freq: Status: Active Protocol: Document 01/27/19 12:00 RCC (Rec: 01/27/19 13:34 RCC [email or web address]) Manual Assessments Joint Mobility Assessment Joint Mobility Assessment slight hypomobile patellar glide medially. PT-OP-G Mobility & Gait Start: 01/01/19 13:26 Freq: Status: Active Protocol: Document 12/30/18 14:30 RCC (Rec: 01/01/19 13:57 RCC [email or web address]) OP Gait Assessment Comments Gait Comments mild knee flexion with R knee throughout gait (no full extension at IC or throughout stance phase) PT-OP-H Neuro Start: 01/01/19 13:26 Freq: Status: Active Protocol: Document 12/30/18 14:30 RCC (Rec: 01/01/19 13:57 RCC [email or web address]) Sensation Evaluation Gross Sensation Gross Sensation WNL PT-OP-K Range of Motion Start: 01/01/19 13:26 Freq: Status: Active Protocol: Document 01/15/19 11:18 RCC (Rec: 01/15/19 13:40 RCC [email or web address]) Knee Goniometric Range of Motion Knee Measured in Degrees Right Patient Position Supine Flexion Active (degrees) 132 Extension Active (degrees) 0 PT-OP-L Special Tests Start: 01/01/19 13:26 Freq: Status: Active Protocol: Document 12/30/18 14:30 RCC (Rec: 01/01/19 13:57 RCC [email or web address]) Special Tests Knee Special Tests step down test Test Results positive R, negative L Patellar Grind Test Test Results negative B Loren Test Test Results negative B Bebe's Test Results negative B Thessaly Test 5 Degrees Test Results negative B Thessaly Test 20 Degrees Test Results negative B Anterior Draw Test Results negative B Varus- 25 Degrees Test Results negative B Varus- 0 Degrees Test Results negative B Valgus- 25 Degrees Test Results negative B Valgus- 0 Degrees Test Results negative B PT-OP-M Strength Start: 01/01/19 13:26 Freq: Status: Active Protocol: Document 12/30/18 14:30 RCC (Rec: 01/01/19 13:57 RCC [email or web address]) Hip Strength Hip Manual Muscle Testing Right Flexion (L2) 5 Normal External Rotation 4+ Good+ Internal Rotation 4+ Good+ Left Flexion (L2) 5 Normal External Rotation 5 Normal Internal Rotation 5 Normal Knee Strength Knee Manual Muscle Testing Right Flexion (S2) 4+ Good+ Extension (L3) 4+ Good+ Left Flexion (S2) 5 Normal Extension (L3) 5 Normal PT-OP-Q Treatments Start: 01/01/19 13:26 Freq: Status: Active Protocol: Document 01/27/19 12:00 RCC (Rec: 01/27/19 13:34 RCC [email or web address]) Gym Equipment Shuttle Recovery Unilateral Squats Details emphasis on knee alignment Resistance 25 lbs Shuttle Recovery Platform Stable Reps/Time x15 Bilateral Squats Details emphasis on knee alignment Resistance 62 lbs Shuttle Recovery Platform Stable Reps/Time 2x15 Therapeutic Exercises Supine Exercises quad sets Side right Reps/Minutes x10 Comments 5 sec hold Standing Exercises step up Standing Exercise Name step up on BOSU (blue) Side right Equipment Used stair rails for UE support Reps/Minutes x10 each Comments forward and lateral Manual Therapy Treatment Soft Tissue Mobilization R lateral knee Body Location R lateral knee @ joint line, distal IT band Mobilization Type Myofascial Release Rolling Intensity/Depth Moderate Body Position Supine Joint Mobilizations tibiofemoral Joint R Direction PA femur on tibia Grade IV Body Position Supine PF Joint R patellofemoral Direction superior, medial, inferior Grade IV Body Position Supine Manual Techniques MWM Type medial patellar glide with QS (neutral and ER RLE) and HS sets Body Location R knee Body Position Supine Reps/Duration x10 reps each PT-OP-T Assessment and Plan Start: 01/01/19 13:26 Freq: Status: Active Protocol: Document 01/27/19 12:00 RCC (Rec: 01/27/19 13:34 [facility] [email or web address]) Physical Therapy Assessment Assessment Summary Assessment Pt with improved R patella mobility medially today, and less crepitus/grinding with MWM. Decreased to 1x/wk this wk, and if pt has no issues may d/c over the next 1-2 wks. Physical Therapy Plan Frequency and Duration Frequency of Treatment 2x/Week Duration of Treatment 8 weeks Plan of Care Start Date 12/30/18 Plan of Care End Date 02/24/19 Next Visit Focus/Plan Next Note Type Treatment Note Next Visit Plan review HEP (including hip IR/ ER), assess tolerance to off of PT for 1 wk
--- NOTE | 2019-05-07 14:19 | PT.OPDS ---
Current Diagnoses Pain in right knee (01/27/19) Provider Visit Care Team Role Provider Type RONA Aviles Primary Care Provider Advanced Form Setter [employer] Specialty: Family Practice Address: [address], [facility] [place], [address] Email: [email or web address] RONA Chavez Attending Provider [employer] Specialty: Medical Address: [facility] [place] [address], [id number] Email: Visit Number Visit Number 7 Discharge Summary PT-OP-B Current Condition Start: 01/01/19 13:26 Freq: Status: Active Protocol: Document 12/30/18 14:30 RCC (Rec: 01/01/19 13:57 RCC [email or web address]) Current Condition History of Current Condition Onset Date 1 mo. ago (prior h/o injury to R knee when she was a teenager) Current Complaints R knee giving out and intermittent pain History of Current Condition Pt is a 78 y/o female presenting to physical therapy with a c/o 1 mo. R knee intermittent pain and occasional giving out of R knee with standing/walking. Pt has not noticed a pattern or consistency of pain or buckling, but increased frequency over the past mo. She has a h/o R knee injury when ice skating as a teenager , falling and landing on the R knee. 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 Pt denies any new/recent trauma. Prior Treatments and Tests knee radiographs: mild/mod OA Treatment Goals Patient/Caregiver Goals improve R knee stability and return to walking without concern/issues Prior Functional Status Baseline Function- Recreation/Hobbies walking outdoors every day for 1/2 hour Current Functional Impairments (Reported) Functional Limitations- Recreation/ limited walking time and Hobbies distance due to knee concerns. Personal Factors Other Personal Factors That May Effect L sided hearing impairment/ Therapy/Recovery loss PT-OP-C Subjective Start: 01/01/19 13:26 Freq: Status: Active Protocol: Document 01/27/19 12:00 RCC (Rec: 01/27/19 13:34 RCC [email or web address]) OP-PT Subjective Patient Comments Patient Comments Pt states that she has been noticing that her R knee is not locking as often, denies pain. Patient Reported Progress Improving PT-OP-D Balance Start: 01/01/19 13:26 Freq: Status: Active Protocol: Document 12/30/18 14:30 RCC (Rec: 01/01/19 13:57 RCC [email or web address]) Balance Tests Single Limb Standing Single Limb- Right 15 sec with increased sway (no pain) Single Limb- Left 15 sec PT-OP-F Manual Assessment Start: 01/01/19 13:26 Freq: Status: Active Protocol: Document 01/27/19 12:00 RCC (Rec: 01/27/19 13:34 RCC [email or web address]) Manual Assessments Joint Mobility Assessment Joint Mobility Assessment slight hypomobile patellar glide medially. PT-OP-G Mobility & Gait Start: 01/01/19 13:26 Freq: Status: Active Protocol: Document 12/30/18 14:30 RCC (Rec: 01/01/19 13:57 RCC [email or web address]) OP Gait Assessment Comments Gait Comments mild knee flexion with R knee throughout gait (no full extension at IC or throughout stance phase) PT-OP-H Neuro Start: 01/01/19 13:26 Freq: Status: Active Protocol: Document 12/30/18 14:30 RCC (Rec: 01/01/19 13:57 RCC [email or web address]) Sensation Evaluation Gross Sensation Gross Sensation WNL PT-OP-K Range of Motion Start: 01/01/19 13:26 Freq: Status: Active Protocol: Document 01/15/19 11:18 RCC (Rec: 01/15/19 13:40 RCC [email or web address]) Knee Goniometric Range of Motion Knee Right Patient Position Supine Flexion Active (degrees) 132 Extension Active (degrees) 0 PT-OP-L Special Tests Start: 01/01/19 13:26 Freq: Status: Active Protocol: Document 12/30/18 14:30 RCC (Rec: 01/01/19 13:57 RCC [email or web address]) Special Tests Knee Special Tests step down test Test Results positive R, negative L Patellar Grind Test Test Results negative B Loren Test Test Results negative B Bebe's Test Results negative B Thessaly Test 5 Degrees Test Results negative B Thessaly Test 20 Degrees Test Results negative B Anterior Draw Test Results negative B Varus- 25 Degrees Test Results negative B Varus- 0 Degrees Test Results negative B Valgus- 25 Degrees Test Results negative B Valgus- 0 Degrees Test Results negative B PT-OP-M Strength Start: 01/01/19 13:26 Freq: Status: Active Protocol: Document 12/30/18 14:30 RCC (Rec: 01/01/19 13:57 RCC [email or web address]) Hip Strength Hip Manual Muscle Testing Right Flexion (L2) 5 Normal External Rotation 4+ Good+ Internal Rotation 4+ Good+ Left Flexion (L2) 5 Normal External Rotation 5 Normal Internal Rotation 5 Normal Knee Strength Knee Manual Muscle Testing Right Flexion (S2) 4+ Good+ Extension (L3) 4+ Good+ Left Flexion (S2) 5 Normal Extension (L3) 5 Normal PT-OP-T Assessment and Plan Start: 01/01/19 13:26 Freq: Status: Active Protocol: Document 05/07/19 14:17 RCC (Rec: 05/07/19 14:19 RCC [email or web address]) Physical Therapy Assessment Goals RLE strength Rn New Graduate Goal (LTG) R hip IR, ER and knee flexion and extension 5/5 with manual muscle testing prior to d/c. LTG Duration 8 weeks R knee buckling Impairment R knee buckling with walking Rn New Graduate Goal (LTG) pt will report no episodes of R knee buckling with return to walking program 1/2 hr, every day prior to d/c. LTG Duration 8 weeks LEFS Impairment Lower Extremity Functional Scale- 40/80, 50% Short Term Goal (STG) pt will score at least 60% on the LEFS to demonstrate improvements with functional activities. STG Duration 4 weeks Rn New Graduate Goal (LTG) pt will score at least 70% on the LEFS to demonstrate improvements with functional activities. LTG Duration 8 weeks Assessment Summary Assessment Discussed on the phone with pt about her progress. Pt is no longer having any c/o buckling in the RLE and is back to her PLOF. Pt did not return to the clinic for a follow up appointment to re-check her objective measures, but is agreeable to d/c at this time as she is no longer having concerns or issues with the RLE. Physical Therapy Plan Discharge Physical Therapy Discharge Reasons No Longer Attending PT
== END 2019-05-11 16:20 ==
LOC: PHYS 12:00
PROVIDERS: PCP Internal Medicine; Visit Provider Registered Nurse
DX: M25.561 Pain in right knee (principal)
CPT/HCPCS: 97110; 97140; 97161

== ENCOUNTER → 2019-02-17 14:32 | Outpatient (CLI) | payer MEDICARE, BC, SELFPAY ==
[2019-02-17 15:33] LABS: BUN Creatinine Ratio 22.9 (6-22); Blood Urea Nitrogen 16 mg/dL (7-17); Calcium 9.4 mg/dL (8.4-10.2); Carbon Dioxide 32 mmol/L (22-32); Chloride 94 mmol/L (98-107); Cholesterol 212 mg/dL (140-199); Estimated Glomerular Filt Rate > 60.0 mL/min (>60); Glucose 126 mg/dL (80-110); HDL Cholesterol 39 mg/dL (40-60); HEMOLYSIS < 15 (0-50); LDL Cholesterol Calculated 120 mg/dL (<100); Potassium 3.8 mmol/L (3.4-5.1); Sodium 135 mmol/L (137-145); Triglycerides 265 mg/dL (35-150)
[2019-02-17 16:28] LABS: Vitamin D 25 Hydroxy (D3) 30.7 ng/mL (30.0-100.0)
== END ==
PROVIDERS: PCP Student in an Organized Health Care Education/Training Program; Visit Provider Student in an Organized Health Care Education/Training Program
DX: E55.9 Vitamin D deficiency, unspecified (principal); I10 Essential (primary) hypertension; E78.5 Hyperlipidemia, unspecified
CPT/HCPCS: 36415; 80048; 80061; 82306

== ENCOUNTER → 2019-02-24 14:34 | Outpatient (CLI) | payer MEDICARE, BC, SELFPAY ==
[2019-02-26 17:31] LABS: Fecal Immunochemical Test NOT DETECTED (NOT DETECTED)
== END ==
PROVIDERS: PCP Student in an Organized Health Care Education/Training Program; Visit Provider Student in an Organized Health Care Education/Training Program
DX: Z12.11 Encounter for screening for malignant neoplasm of colon (principal); Z78.0 Asymptomatic menopausal state; Z91.89 Other specified personal risk factors, not elsewhere classified
CPT/HCPCS: 77080; 77081; 82274

== ENCOUNTER → 2019-04-29 11:09 | Outpatient (CLI) | payer MEDICARE, BC, SELFPAY ==
--- NOTE | 2019-04-29 | DI.MG.S_ITS ---
BILATERAL DIGITAL SCREENING MAMMOGRAM 3D/2D WITH CAD: 04/29/2019 CLINICAL: Routine screening. Family history of breast cancer. Comparison is made to exams dated: 05/08/2018 mammogram, 04/24/2018 mammogram, 04/22/2017 mammogram, and 04/01/2016 mammogram - [facility]. The tissue of both breasts is heterogeneously dense. This may lower the sensitivity of mammography. Current study was also evaluated with a Computer Aided Detection (CAD) system. There are a grouped coarse calcifications in the left breast at 12 o'clock posterior depth. These are more prominent, increased in size, and increased in number. There also are a grouped coarse calcifications in the left breast at 3 o'clock middle depth. This was not seen on the prior mammogram. No other significant masses, calcifications, or other findings are seen in either breast. IMPRESSION: INCOMPLETE: NEEDS ADDITIONAL IMAGING EVALUATION The grouped coarse calcifications in the left breast at 12 o'clock posterior depth are indeterminate. Mediolateral and spot magnification views are recommended. The grouped coarse calcifications in the left breast at 3 o'clock middle depth are indeterminate. Mediolateral and spot magnification views are recommended. This exam was interpreted at Station ID: [id number]. NOTE: For mammograms, a report in lay terms will be sent to the patient. Approximately 15% of breast malignancies will not be visualized mammographically. In the management of a palpable breast mass, a negative mammogram must not discourage biopsy of a clinically suspicious lesion. Electronically Signed By: Willard brody/hazel:04/29/2019 17:23:49 letter sent: Additional Imaging Needed ACR BI-RADS Category 0: Incomplete 3340F
== END ==
PROVIDERS: PCP Student in an Organized Health Care Education/Training Program; Visit Provider Student in an Organized Health Care Education/Training Program
DX: Z12.31 Encounter for screening mammogram for malignant neoplasm of breast (principal); Z80.3 Family history of malignant neoplasm of breast
CPT/HCPCS: 77063; 77067

== ENCOUNTER → 2019-05-14 09:11 | Outpatient (CLI) | payer MEDICARE, BC, SELFPAY ==
--- NOTE | 2019-05-14 09:13 | DI.MG.S_ITS ---
UNILATERAL LEFT DIGITAL DIAGNOSTIC MAMMOGRAM 3D/2D WITH ADDITIONAL VIEWS: 05/14/2019 CLINICAL: Additional evaluation requested from prior study. Comparison is made to exams dated: 05/08/2018 mammogram, 04/29/2019 mammogram, and 04/24/2018 mammogram - . The tissue of left breast is heterogeneously dense. This may lower the sensitivity of mammography. There are a grouped fine punctate round calcifications in the left breast at 3 o'clock middle depth. These are increased in number of calcifications. There also are a grouped coarse dystrophic punctate calcifications in the left breast at 1 o'clock posterior depth. No other significant masses or calcifications are seen in the breast. IMPRESSION: SUSPICIOUS OF MALIGNANCY The grouped fine punctate round calcifications in the left breast at 3 o'clock middle depth are at a low suspicion for malignancy. A stereotactic biopsy is recommended. 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 The findings were discussed with the patient at the conclusion of the study by Dr. Ramirez. This exam was interpreted at Station ID: [id number]. NOTE: For mammograms, a report in lay terms will be sent to the patient. Approximately 15% of breast malignancies will not be visualized mammographically. In the management of a palpable breast mass, a negative mammogram must not discourage biopsy of a clinically suspicious lesion. Electronically Signed By: Shaun chua/:05/14/2019 09:53:07 letter sent: Biopsy Required ACR BI-RADS Category 4a: Suspicious abnormality - low suspicion for malignancy 3344F
== END ==
PROVIDERS: PCP Student in an Organized Health Care Education/Training Program; Visit Provider Student in an Organized Health Care Education/Training Program
DX: R92.1 Mammographic calcification found on diagnostic imaging of breast (principal)
CPT/HCPCS: 77065; G0279

== ENCOUNTER → 2019-06-04 10:24 | Outpatient (CLI) | payer MEDICARE, BC, SELFPAY ==
--- NOTE | 2019-06-04 10:25 | DI.US.S_ITS ---
PROCEDURE: US PERIPH VENOUS LOW EXTREM LT INDICATIONS: UNILATERAL EDEMA TECHNIQUE: Real-time imaging, as well as color and pulse Doppler interrogation, were performed of the lower extremity deep veins from the inguinal ligament to the popliteal fossa. COMPARISON: [facility], , PVE UNILATERAL LEFT, 07/18/2014, 12:43. FINDINGS: The common femoral, femoral and popliteal veins are normally compressible, and free of intraluminal thrombus. Color and pulse Doppler demonstrate normal phasic intraluminal flow. There is normal augmentation response to distal compression maneuver. IMPRESSION: Negative for deep venous thrombosis. Dictated by: Costa Knutson M.D. on 06/04/2019 at 12:11 Approved by: Costa Knutson M.D. on 06/04/2019 at 12:12
== END ==
PROVIDERS: PCP Student in an Organized Health Care Education/Training Program; Visit Provider Student in an Organized Health Care Education/Training Program
DX: M79.89 Other specified soft tissue disorders (principal)
CPT/HCPCS: 93971

== ENCOUNTER → 2019-07-14 09:30 | Outpatient (CLI) | payer MEDICARE, BC, SELFPAY ==
[2019-07-14 10:48] LABS: Add Manual Diff / Slide Review NO; Basophils Absolute Auto 0 /uL (0-100); Basophils Percent Auto 0.3 % (0-2); Eosinophils Absolute Auto 100 /uL (0-450); Eosinophils Percent Auto 1.5 % (2-4); Hemoglobin 15.7 g/dL (12.0-16.0); Lymphocytes Absolute Auto 2300 /uL (1100-4500); Mean Corpuscular HGB Conc 36.4 % (30-36); Mean Corpuscular Hemoglobin 32.2 PG (26-34); Mean Corpuscular Volume 88.4 fL (80-100); Monocytes Absolute Auto 900 /uL (0-900); Monocytes Percent Auto 12.6 % (3-14); Neutrophils Absolute Auto 4100 /uL (1500-7000); Neutrophils Percent Auto 54.6 % (50-75); Platelet Count 179 X10^3/uL (150-400); Red Blood Cell Count 4.87 X10^6/uL (4.0-5.2); Red Cell Distribution Width 12.9 % (11.6-14.8); White Blood Cell Count 7.4 X10^3/uL (4.5-11.0)
[2019-07-14 11:05] LABS: B Type Natriuretic Peptide < 100 (<100)
== END ==
PROVIDERS: Hospitalist; PCP Student in an Organized Health Care Education/Training Program; Visit Provider Internal Medicine
DX: I10 Essential (primary) hypertension (principal); R06.09 Other forms of dyspnea
CPT/HCPCS: 36415; 83880; 85025

== ENCOUNTER → 2019-07-22 07:04 | Outpatient (CLI) | payer MEDICARE, BC, SELFPAY ==
[2019-07-22 09:19] LABS: Alanine Aminotransferase 33 IU/L (9-52); Albumin 3.9 g/dL (3.5-5.0); Albumin Globulin Ratio 1.6 (1.0-2.8); Alkaline Phosphatase 140 U/L (38-126); Aspartate Aminotransferase 31 IU/L (14-36); Bilirubin Total 1.1 mg/dL (0.2-1.3); Bilirubin Unconjugated 0.9 mg/dL (0.0-1.1); Cholesterol 118 mg/dL (140-199); Globulin 2.5 g/dL (1.7-4.1); HDL Cholesterol 43 mg/dL (40-60); HEMOLYSIS < 15 (0-50); LDL Cholesterol Calculated 53 mg/dL (<100); Total Protein 6.4 g/dL (6.3-8.2); Triglycerides 112 mg/dL (35-150)
== END ==
PROVIDERS: PCP Student in an Organized Health Care Education/Training Program; Visit Provider Student in an Organized Health Care Education/Training Program
DX: E78.5 Hyperlipidemia, unspecified (principal); Z79.899 Other long term (current) drug therapy
CPT/HCPCS: 36415; 80061; 80076

== ENCOUNTER → 2019-07-29 13:44 | Outpatient (CLI) | payer MEDICARE, BC, SELFPAY ==
--- NOTE | 2019-07-29 14:48 | PM.TREADMILL ---
Cardiac Stress Test Report Referral & Results Date Patient Seen: 07/29/19 Requesting provider: Elicia Storm Indication: Dyspnea Rest ECG: Unremarkable Procedure Note: Today following both written and verbal informed consent, the patient was exercised according to a standard [place] protocol. The patient exercised for a total of 3 minutes 16 seconds achieving a maximum heart rate of 175. Patient's maximum systolic blood pressure was 195. This was an estimated 4.6 MET's. With exercise patient appeared to go into a supraventricular rhythm that appears to be atrial fibrillation. There was an excessive ventricular response heart rate jumping from 120-160 immediately. With this patient became dyspneic. There was lots of motion artifact present however making it difficult to be absolutely sure this was atrial fibrillation. In recovery as patient's slow down became clear should return to a sinus tachycardia heart rate in the 120s. With this patient's symptoms of dyspnea resolved as well No ST-T segment changes identified Functional aerobic impairment rates about 0 on the sedentary scale Rare PVC seen as well Impression: Probable atrial fibrillation with exercise or some other source of supraventricular tachycardia. Suggest lunchroom monitor as an outpatient to further evaluate No evidence of ischemia Average exercise capacity Please note: Actual ECG tracings can be found in the PACS system.
== END ==
PROVIDERS: PCP Student in an Organized Health Care Education/Training Program; Visit Provider Nurse Practitioner
DX: R06.00 Dyspnea, unspecified (principal); R06.02 Shortness of breath
CPT/HCPCS: 93016; 93017; 93018

== ENCOUNTER → 2019-09-23 10:57 | Outpatient (CLI) | payer MEDICARE, BC, SELFPAY ==
--- NOTE | 2019-10-15 16:02 | PM.CARDMON.1 ---
Defensive Driving Instructor Report Referral & Results Date Patient Seen: 09/23/19 Requesting provider: Anatoliy Salguero Indication: Dyspnea Duration of monitoring (days): 4 Diary information: There were 71 patient triggered events and 2 patient diary entries Patient diary entries were associated with PACs and sinus rhythm Patient triggered events were associated with sinus rhythm, PACs, PVCs, and SVT Data: Minimum heart rate identified was 55 beats per minute at 07:35 on 10/01/2019 Maximum sinus heart rate was 103 beats per minute at 13:31 on 09/28/2019 Maximum overall heart rate was 143 beats per minute at 17:04 on 09/24/2019 during a 9 beat run of atrial tachycardia Approximately 1.9% of identified beats were supraventricular ectopic in origin Less than 1% of identified beats were ventricular ectopic in origin Patient had periodic runs of second-degree AV block type 1 or Wenckebach block Patient had 32 runs of a supraventricular origin likely atrial tachycardia with the fastest being 143 beats per minute during a 9 beat run. The longest was 13 beats Impression: 14 day nurse monitoring showing relatively frequent PACs but otherwise essentially unremarkable. Various other minor dysrhythmias as noted above were also present No clear etiology for patient's symptoms identified, other than simple PACs Clinical correlation suggested
== END ==
PROVIDERS: PCP Student in an Organized Health Care Education/Training Program; Visit Provider Nurse Practitioner Family
DX: R06.09 Other forms of dyspnea (principal); R07.89 Other chest pain
CPT/HCPCS: 0296T; 0298T

== ENCOUNTER → 2019-11-11 07:53 | Outpatient (CLI) | payer MEDICARE, BC, SELFPAY ==
--- NOTE | 2019-11-11 07:56 | DI.ECHO.S_ITS ---
[facility] +---------+ : : [address] : : : : [place], [place] : : : : [id number] : : : : Phone: [phone]---------+ Echocardiogram Report + + :Name: NUHA FERNANDEZ Study Date: 11/11/2019 Height: 68 in : :[facility] Weight: 195 lb : : Gender: Female BSA: 2.0 m2 : :: 1940 Age: 78 yrs BP: 162/92 mmHg: :Reason For Study: SOB : : Performed By: [facility] Staff : :Referring: JAC CAVAZOS : + + Interpretation Summary The left ventricle is normal in size, wall thickness, and systolic function without any focal wall motion abnormalities with the ejection fraction visually estimated to be 65-70%. Diastolic parameters suggest probable normal left ventricular diastolic function and normal filling pressures. The right ventricle is normal in size and function. Pulmonary artery pressures cannot be estimated because of the lack of a measurable TR jet velocity. Both atria are normal in size. There is mild pulmonic regurgitation but no other significant valvular heart disease. Procedure: A two-dimensional transthoracic echocardiogram with color flow and Doppler was performed. The study quality was technically adequate. There is no prior echocardiogram noted for this patient. The patient was in normal sinus rhythm during the exam. Left Ventricle: The left ventricle is normal in size, wall thickness, and systolic function without any focal wall motion abnormalities. The ejection fraction is estimated to be 65-70%. Diastolic parameters suggest probable normal left ventricular diastolic function and normal filling pressures. Right Ventricle: The right ventricle is normal in size and function. Atria: Both atria are normal in size. The interatrial septum is intact with no evidence for an atrial septal defect. Mitral Valve: There is mild mitral annular calcification. The mitral valve leaflets appear mildly thickened, but open well. There is trace mitral regurgitation. Aortic Valve: The aortic valve is trileaflet. The aortic valve is mildly calcified. The aortic valve opens well. No aortic regurgitation is present. Tricuspid Valve: The tricuspid valve is normal in structure and function. There is trace tricuspid regurgitation. Pulmonary artery pressures cannot be estimated because of the lack of a measurable TR jet velocity. Pulmonic Valve: The pulmonic valve is not well visualized. There is mild pulmonic regurgitation. There is no other significant valvular heart disease. Great Vessels: The aortic root is normal size. The ascending aorta could not be visualized. The pulmonary artery is normal size. The inferior vena cava was not well visualized. Pericardium/ Pleura There is no pericardial effusion. There is no pleural effusion. MMode/2D Measurements & Calculations LVIDd: 4.1 cm LVOT diam: 2.0 cm LVIDs: 2.5 cm Ao root diam: 3.2 cm FS: 39.4 % EPSS: 0.74 cm IVSd: 0.97 cm LVPWd: 1.1 cm LV metz. diameter/BSA (cm/m^2): 2.0 LV sys. diameter/BSA (cm/m^2): 1.2 LA A2 area: 15.4 cm2 RA long axis: 4.7 cm LA A4 area: 16.0 cm2 RA area: 11.5 cm2 LA length (vol): 5.0 cm RA vol: 23.8 ml LA vol: 41.9 ml RA : 11.8 ml/m2 LA vol index: 20.7 ml/m2 TAPSE: 2.9 cm Doppler Measurements & Calculations Ao V2 max: 112.7 cm/sec LVOT Max Akira: 97.9 cm/sec Ao V2 mean: 72.9 cm/sec LV V1 max P.8 mmHg Ao max P.1 mmHg LV V1 VTI: 24.2 cm Ao mean P.6 mmHg ADRIANA(I,D): 3.0 cm2 Ao V2 VTI: 24.7 cm ADRIANA(V,D): 2.6 cm2 sev ratio: 0.98 ADRIANA indexed to BSA (cm^2/m^2): 1.5 MV E max akira: 76.3 cm/sec PA V2 max: 67.8 cm/sec MV A max akira: 113.1 cm/sec PA V2 mean: 45.6 cm/sec MV E/A: 0.67 PA mean P.97 mmHg Med Peak E' Akira: 6.1 cm/sec PA Accel Time: 0.12 sec E/E' med: 12.6 Lat Peak E' Akira: 7.0 cm/sec E/E' lat: 10.8 E/e' average: 11.7 MV dec time: 0.26 sec SV(LVOT): 73.1 ml Reading Physician:DORIAN
== END ==
PROVIDERS: PCP Student in an Organized Health Care Education/Training Program; Visit Provider Student in an Organized Health Care Education/Training Program
DX: I37.1 Nonrheumatic pulmonary valve insufficiency (principal); R06.02 Shortness of breath; R07.89 Other chest pain; R53.83 Other fatigue; R60.0 Localized edema; I10 Essential (primary) hypertension
CPT/HCPCS: 93306

== ENCOUNTER → 2019-12-22 09:24 | Outpatient (CLI) | payer MEDICARE, BC, SELFPAY ==
[2019-12-22 10:06] LABS: Hemoglobin A1C% w Est Avg Glu 9.4 % (4.0-6.0)
[2019-12-22 10:07] LABS: Appearance Urine UA SL CLOUDY; Bilirubin Urine UA NEGATIVE (NEGATIVE); Color Urine UA YELLOW; Glucose Urine UA 1+ g/dL (Negative); Ketones Urine UA NEGATIVE (NEGATIVE); Leukocyte Esterase Urine UA 1+ (NEGATIVE); Nitrite Urine UA NEGATIVE (Negative); Occult Blood Urine UA NEGATIVE (Negative); Protein Urine UA NEGATIVE (Negative); Urobilinogen Urine UA 0.2 E.U./dL (0.2)
[2019-12-22 10:19] LABS: pH Urine UA 6.5 (4.5-8.0)
[2019-12-22 10:20] LABS: Alanine Aminotransferase 28 IU/L (<35); Albumin Globulin Ratio 1.4 (1.0-2.8); Alkaline Phosphatase 85 U/L (38-126); Aspartate Aminotransferase 29 IU/L (14-36); BUN Creatinine Ratio 21.7 (6-22); Bilirubin Total 1.4 mg/dL (0.2-1.3); Blood Urea Nitrogen 13 mg/dL (7-17); Calcium 9.4 mg/dL (8.4-10.2); Carbon Dioxide 29 mmol/L (22-32); Chloride 95 mmol/L (98-107); Estimated Glomerular Filt Rate > 60.0 mL/min (>60); Globulin 2.9 g/dL (1.7-4.1); Glucose 346 mg/dL (80-110); HEMOLYSIS < 15 (0-50); Lipase 71 U/L (23-300); Potassium 3.6 mmol/L (3.4-5.1); RBC Urine None Seen (0-5/HPF); Sodium 133 mmol/L (137-145); Total Protein 6.9 g/dL (6.3-8.2)
[2019-12-22 10:23] LABS: Bacteria Urine Many (>30); Culture Indicated Urine Cult Not Indicated; Squamous Epithelial Cell Urine >30 /HPF (0-5/HPF); WBC Urine 10-30/HPF (0-5/HPF)
== END ==
PROVIDERS: PCP Student in an Organized Health Care Education/Training Program; Visit Provider Student in an Organized Health Care Education/Training Program
DX: E88.81 Metabolic syndrome and other insulin resistance (principal); R81 Glycosuria; E78.5 Hyperlipidemia, unspecified; I10 Essential (primary) hypertension; E11.9 Type 2 diabetes mellitus without complications
CPT/HCPCS: 36415; 80053; 81003; 81015; 83036; 83690

== ENCOUNTER → 2020-01-31 15:39 | Outpatient (CLI) | payer MEDICARE, BC, SELFPAY ==
[2020-02-04 18:45] LABS: Candida species Negative (Negative); Trichomoas vaginalis Negative (Negative)
== END ==
PROVIDERS: PCP Student in an Organized Health Care Education/Training Program; Visit Provider Obstetrics & Gynecology
DX: B37.9 Candidiasis, unspecified (principal); N90.4 Leukoplakia of vulva
CPT/HCPCS: 87070; 87077; 87205; 87480; 87491; 87510; 87591; 87798; 87801

== ENCOUNTER → 2020-02-02 12:40 | Outpatient (CLI) | payer MEDICARE, BC, SELFPAY ==
--- NOTE | 2020-02-02 14:09 | DIET.PN ---
Diabetes Intake: Initial Assessment Assess: Mrs. Cordero is a 79 YOF referred for type 2 diabetes. She is newly diagnosed and reports no known family hx. She has been monitoring her BG 1-3 x/day including fasting and alternating 1-3 hr post-prandials. She reports making significant dietary changes since diagnosis but reports she is not educated on what she should be eating and how food impacts BG values. She is taking metformin and reports GI complications, so she is now titrating up 500 mg until she reaches 1000 mg BID. Labs: Per pt report: A1c: 9.4 (11/2019) Meds: metformin 1000 mg BID (current 1000 a.m. 500 p.m.) Diet: per 24 hr recall: reports previous diet high in refined CHO. Wt: 185 Ht: 68 in BMI: 28.1 DX: Altered nutrition related laboratory values related to impaired glucose metabolism, lack of previous exposure to nutrition information as evidenced by pt report, diagnosis of diabetes, previous diet high in refined carbohydrates. Intervention: 1. Completed intake assessment. Discussed barriers to care. 2. Discussed pathophysiology of diabetes. Reviewed A1c and its correlation to blood glucose numbers. Discussed recommended BG ranges. 3. Discussed importance of self-monitoring, how often, and when to check. 4. Reviewed hyper/hypoglycemia and treatment. 5. Reviewed safe disposal of equipment (strip/lancets/insulin needles). 6. Created SMART goals for pt self-care and success. 7. Discussed program curriculum outline and class needs based on individual goals. Monitor/Evaluate: Anticipate excellent compliance. Pt will attend full DSME program. Basic Nutrition class scheduled for February 03. :
== END ==
PROVIDERS: PCP Student in an Organized Health Care Education/Training Program; Referring Provider Student in an Organized Health Care Education/Training Program; Visit Provider Student in an Organized Health Care Education/Training Program
DX: E11.9 Type 2 diabetes mellitus without complications (principal); Z79.84 Long term (current) use of oral hypoglycemic drugs; E66.3 Overweight; Z71.3 Dietary counseling and surveillance; Z68.28 Body mass index [BMI] 28.0-28.9, adult
CPT/HCPCS: G0108

== ENCOUNTER → 2020-02-04 10:00 | Outpatient (CLI) | payer MEDICARE, BC, SELFPAY ==
--- NOTE | 2020-02-04 11:40 | DIET.PN ---
Diabetes: Healthy Eating 1 Intervention: ? Discussed pathophysiology of diabetes and impact of nutrition/diet on blood sugar control.? Discussed fed versus non-fed state.?? ? Reviewed importance of Balance, Variety, and Moderation. ? Discussed the effect of carbohydrates/protein/fat on blood sugar control.? ? Stressed importance of consistent carbohydrate intake at each meal and provided instructions for recommended servings/portions of carbohydrates/protein per meal. Provided educational material. ? Reviewed carbohydrate counting and measuring carbohydrate content via serving sizes and reading nutrition labels.? Provided handouts.?? ? Discussed the difference between simple versus complex carbohydrates and the effect of fiber on blood sugar control.? Discussed various methods to increase fiber content in diet. ? Discussed the plate method for creating more carbohydrate conscious balanced meals. ? Stressed importance of meal timing and not going >4-5 hours between meals. Encouraged adding protein to evening snack to support glucose control overnight. ?Discussed importance of making dietary habits part of lifestyle change.
== END ==
PROVIDERS: PCP Student in an Organized Health Care Education/Training Program; Referring Provider Nurse Practitioner; Visit Provider Nurse Practitioner
DX: E11.9 Type 2 diabetes mellitus without complications (principal); Z71.3 Dietary counseling and surveillance
CPT/HCPCS: G0109

== ENCOUNTER → 2020-04-14 16:05 | Outpatient (CLI) | payer MEDICARE, BC, SELFPAY ==
[2020-04-14 18:55] LABS: Hemoglobin A1C% w Est Avg Glu 6.1 % (4.0-6.0)
== END ==
PROVIDERS: PCP Student in an Organized Health Care Education/Training Program; Referring Provider Student in an Organized Health Care Education/Training Program; Visit Provider Student in an Organized Health Care Education/Training Program
DX: E11.9 Type 2 diabetes mellitus without complications (principal)
CPT/HCPCS: 36415; 83036

== ENCOUNTER → 2020-05-01 10:06 | Outpatient (CLI) | payer MEDICARE, BC, SELFPAY ==
--- NOTE | 2020-05-01 10:08 | DI.MG.S_ITS ---
BILATERAL DIGITAL SCREENING MAMMOGRAM 3D/2D WITH CAD: 05/01/2020 CLINICAL: Routine screening. Family history of breast cancer. Comparison is made to exams dated: 04/29/2019 mammogram, 04/24/2018 mammogram, and 04/22/2017 mammogram - [facility]. The tissue of both breasts is heterogeneously dense. This may lower the sensitivity of mammography. Current study was also evaluated with a Computer Aided Detection (CAD) system. There are grouped calcifications in the right breast at 12 o'clock middle depth. No other significant masses, calcifications, or other findings are seen in either breast. IMPRESSION: INCOMPLETE: NEEDS ADDITIONAL IMAGING EVALUATION The grouped calcifications in the right breast are indeterminate. Spot magnification views are recommended. This exam was interpreted at Station ID: [id number]. NOTE: For mammograms, a report in lay terms will be sent to the patient. Approximately 15% of breast malignancies will not be visualized mammographically. In the management of a palpable breast mass, a negative mammogram must not discourage biopsy of a clinically suspicious lesion. Electronically Signed By: Judy sanchez/:05/01/2020 10:31:33 letter sent: Additional Imaging Needed ACR BI-RADS Category 0: Incomplete [id number]
== END ==
PROVIDERS: PCP Student in an Organized Health Care Education/Training Program; Referring Provider Student in an Organized Health Care Education/Training Program; Visit Provider Student in an Organized Health Care Education/Training Program
DX: Z12.31 Encounter for screening mammogram for malignant neoplasm of breast (principal); Z80.3 Family history of malignant neoplasm of breast
CPT/HCPCS: 77063; 77067

== ENCOUNTER → 2020-05-12 08:03 | Outpatient (CLI) | payer MEDICARE, BC, SELFPAY ==
--- NOTE | 2020-05-12 08:05 | DI.MG.S_ITS ---
UNILATERAL RIGHT DIGITAL DIAGNOSTIC MAMMOGRAM 3D/2D WITH ADDITIONAL VIEWS: 05/12/2020 CLINICAL: Additional evaluation requested from prior study. Comparison is made to exams dated: 05/01/2020 mammogram, 04/29/2019 mammogram, and 04/24/2018 mammogram - [facility]. The tissue of right breast is heterogeneously dense. This may lower the sensitivity of mammography. There are new, tightly grouped, amorphous and coarse rim calcifications in the right breast at 12 o'clock middle depth. On the lateral projection, they appear peripherally oriented. No other significant masses or calcifications are seen in the breast. IMPRESSION: PROBABLY BENIGN The calcifications in the right breast resemble a degenerating fibroadenoma and are probably benign. A follow-up mammogram in 6 months is recommended. Findings and recommendations were conveyed to the patient at time of exam. This exam was interpreted at Station ID: [id number]. NOTE: For mammograms, a report in lay terms will be sent to the patient. Approximately 15% of breast malignancies will not be visualized mammographically. In the management of a palpable breast mass, a negative mammogram must not discourage biopsy of a clinically suspicious lesion. Electronically Signed By: Cristin gonzalez/:05/12/2020 08:48:21 copy to: AYLEEN CALI letter sent: Followup Recommended ACR BI-RADS Category 3: Probably benign [id number]
== END ==
PROVIDERS: PCP Nurse Practitioner; Referring Provider Student in an Organized Health Care Education/Training Program; Visit Provider Student in an Organized Health Care Education/Training Program
DX: R92.8 Other abnormal and inconclusive findings on diagnostic imaging of breast (principal); R92.1 Mammographic calcification found on diagnostic imaging of breast
CPT/HCPCS: 77065; G0279

== ENCOUNTER → 2020-05-18 09:51 | Outpatient (CLI) | payer MEDICARE, BC, SELFPAY ==
--- NOTE | 2020-05-18 12:17 | DIET.PN ---
Diabetes: Healthy Eating 2 Intervention: Fats effects on glucose, weight, heart disease, cholesterol Sat Vs Unsat Protein- animal and plant based options Low, med, high fat meats Sugar substitutes Sodium Health claims Grocery shopping guidelines Eating away from home Alcohol Sick day guidelines Ketone Testing
== END ==
PROVIDERS: PCP Nurse Practitioner; Referring Provider Student in an Organized Health Care Education/Training Program; Visit Provider Student in an Organized Health Care Education/Training Program
DX: E11.9 Type 2 diabetes mellitus without complications (principal); Z71.3 Dietary counseling and surveillance
CPT/HCPCS: G0109

== ENCOUNTER → 2020-05-23 10:01 | Outpatient (CLI) | payer MEDICARE, BC, SELFPAY ==
--- NOTE | 2020-05-23 11:57 | DIET.PN ---
Diabetes Physiology: Intervention 1. Diabetes physiology 2. Detecting and treatment of acute and chronic complications 3. Diagnosis of and difference in types of diabetes 4. Self-monitoring and pattern management a. Demonstrate glucometer and control testing b. Explain BG results and action to take when out of range. 5. Foot , eye, dental care 6. Medications a. Oral medication classification b. Injectable c. Insulin i. Injection protocol ii. Other delivery methods
[2020-05-23 20:45] LABS: BUN Creatinine Ratio 26.8 (6-22); Blood Urea Nitrogen 15 mg/dL (7-17); Calcium 10.1 mg/dL (8.4-10.2); Carbon Dioxide 24 mmol/L (22-32); Chloride 92 mmol/L (98-107); Estimated Glomerular Filt Rate > 60.0 mL/min (>60); Glucose 120 mg/dL (80-110); HEMOLYSIS < 15 (0-50); Magnesium 1.3 mg/dL (1.6-2.3); Potassium 3.9 mmol/L (3.4-5.1); Sodium 129 mmol/L (137-145)
== END ==
PROVIDERS: PCP Nurse Practitioner; Referring Provider Nurse Practitioner; Visit Provider Student in an Organized Health Care Education/Training Program
DX: E11.9 Type 2 diabetes mellitus without complications (principal); I10 Essential (primary) hypertension; I49.9 Cardiac arrhythmia, unspecified; Z79.899 Other long term (current) drug therapy; Z71.3 Dietary counseling and surveillance
CPT/HCPCS: 36415; 80048; 83735; G0109

== ENCOUNTER → 2020-05-25 09:55 | Outpatient (CLI) | payer MEDICARE, BC, SELFPAY ==
[2020-05-25 10:00] VITALS: BMI 27.0
--- NOTE | 2020-05-25 10:59 | DIET.PN ---
DIABETES Nutrition Initial Assessment:? ASSESS:?? Mrs. Cordero is a 79 yof?referred for type 2 diabetes seen as part of DSME program. She was recently diagnosed in January of this year. Has changed the way of eating to more mindful. States her has been very supportive which makes this new lifestyle change easier to adjust to. They have been exercising for 30 min daily and have limited dining out. She continues to monitor her BG and weight daily. ??? LABS: Per pt report:? A1c: 6.1 (03/2020) 9.4 (01/2020) SMB-125 ? MEDS:?? metformin 1000 mg BID ? DIET: Per 24-hour recall:? eating a lot of berries and other fruits Eating Out: < 1x/wk Changes in Appetite: Less of an appetite (more mindful) Nutrition Supplements: multi, vit D, calcium, apple cider vinegar ? Weight: 178lb Height: 68in BMI: ? 27 ? Exercise:? exercise bike for 30 min /day NUTRITION DX 1. Altered Nutrition related labs related to impaired glucose metabolism, lack of previous exposure to accurate nutrition information as evidenced by pt report, dx of diabetes, previous diet high in refined carbohydrates.? INTERVENTION(s): 1. Reviewed pathophysiology of diabetes and impact of nutrition/diet on blood sugar control.? Discussed fed versus non-fed state.?? 2. Discussed the effect of carbohydrates/protein/fat on blood sugar control.? Stressed importance of consistent carbohydrate intake at each meal and provided instructions for recommended servings/portions of carbohydrates/protein per meal. Provided pt with educational material. 3. Reviewed carbohydrate counting and measuring carbohydrate content via serving sizes and reading nutrition labels.? Provided handouts.?? 4. Discussed the difference between simple versus complex carbohydrates and the effect of fiber on blood sugar control.? Discussed various methods to increase fiber content in diet. 5. Stressed importance of meal timing and not going >4-5 hours between meals. Encouraged adding protein to evening snack to support glucose control overnight. Patient agreeable. 6. Discussed healthy weight loss goals of 1-2lbs per week through diet and exercise.? Pt agreeable to walking at least 30 minutes daily. 7. Recommend monitoring fasting and alternating 2 hr PP mealtime glucose. SMART Goal: 1. Pt has indicated a new goal weight of 165lb through continued dietary changes and daily exercise. MONITOR/EVALUATE: Anticipate good compliance.? Nutrition follow-up scheduled for 1 month.
== END ==
PROVIDERS: PCP Nurse Practitioner; Referring Provider Student in an Organized Health Care Education/Training Program; Visit Provider Student in an Organized Health Care Education/Training Program
DX: E11.9 Type 2 diabetes mellitus without complications (principal); Z79.84 Long term (current) use of oral hypoglycemic drugs
CPT/HCPCS: G0109

== ENCOUNTER → 2020-06-01 09:56 | Outpatient (CLI) | payer MEDICARE, BC, SELFPAY ==
--- NOTE | 2020-06-01 11:35 | DIET.PN ---
Exercise/Lifestyle change: 1. Importance of exercise 2. FITT (frequency, intensity, time, type) 3. Strength training tips and guidelines 4. Glucose monitoring/ranges before and after a. Carbohydrate needs based on glucose ranges and duration/intensity of exercise b. Rule of 15 5. Proper foot attire 6. Developing strategies for behavior change 7. SMART Goal Setting 8. Home exercise routine demonstration (as a class)
== END ==
PROVIDERS: PCP Nurse Practitioner; Referring Provider Student in an Organized Health Care Education/Training Program; Visit Provider Student in an Organized Health Care Education/Training Program
DX: E11.9 Type 2 diabetes mellitus without complications (principal); Z71.3 Dietary counseling and surveillance
CPT/HCPCS: 93010; G0109

== ENCOUNTER 2020-06-01 12:20 | Emergency (ER) | payer MEDICARE, BC, SELFPAY ==
[2020-06-01] VITALS (12 sets, daily range): BP systolic 142–160; BP diastolic 74–97; PULSE 74–106; RESP 13–35; TEMP 36.8; O2SAT 97–99; BMI 26.1
--- NOTE | 2020-06-01 12:29 | ED.ARRPALP ---
HPI - Arrhythmia/Palpitations <Joan Herrera, AQUATIC INSTRUCTOR-BC - Last Filed: 06/01/20 16:04> General Chief Complaint: Arrhythmia/Palpitations Stated Complaint: SOB,palpitations,irregular heart beat Time Seen by Provider: 06/01/20 12:23 Source: patient Mode of arrival: Ambulatory Limitations: no limitations History of Present Illness HPI narrative: The patient is a 79-year-old female nonsmoker with history of shortness of breath on exertion, palpitations and dizziness as well as electrolyte imbalances who presents with a chief complaint of palpitations and the sensation of an irregular heartbeat. She also complains of shortness of breath on exertion, but states that has been going on for months. She does state that she recently had a stress test as well as an echocardiogram and Holter monitor. She denies any fevers, chest pain or pressure, nausea vomiting diarrhea or abdominal pain. She denies any swelling of her extremities. She states she is trying to lose weight. The past few weeks, she has changed her blood pressure medications, discontinuing atenolol and starting amlodipine/olmesartan. Related Data Home Medications Medication Instructions Recorded Confirmed CA PANTOTHENATE/FOLIC ACID/VIT 1 tab PO Q DAY #0 09/13/11 05/05/20 (MULTIVITAMIN) CRANBERRY FRUIT CONCENTRATE 450 mg PO QDAY #0 01/27/13 05/05/20 (Cranberry) acidophilus 100 million cap PO DAILY cap 05/26/19 05/05/20 cell-pectin, citrus 10 mg capsule nitrofurantoin macrocrystal 100 mg 100 mg PO BEDTIME 05/26/19 05/05/20 capsule vitamin d 1 cap PO DAILY 05/26/19 05/05/20 oxybutynin chloride 5 mg tablet 5 mg PO DAILY 04/14/20 05/05/20 Previous Rx's Medication Instructions Recorded clobetasol 0.05 % topical cream See Rx Instructions .ROUTE 11/03/19 .COMPLEX #120 gram atorvastatin 40 mg tablet 40 mg PO BEDTIME #90 tab 01/03/20 blood-glucose meter #1 each 01/10/20 metformin 1,000 mg tablet 1,000 mg PO BID #180 tab 02/03/20 blood sugar diagnostic #100 each 02/18/20 lancets 28 gauge See Rx Instructions .ROUTE 03/06/20 .COMPLEX #100 each hydrochlorothiazide 25 mg tablet 25 mg PO QDAY #90 tab 03/31/20 estradiol 0.5 gram VAG DAILY #90 gram 04/06/20 amlodipine 5 mg-olmesartan 20 mg 1 tab PO DAILY #30 tab 05/23/20 tablet magnesium oxide 400 mg PO DAILY #14 tab 06/01/20 nystatin-triamcinolone 100,000 See Rx Instructions .ROUTE 06/01/20 unit/gram-0.1 % topical ointment .COMPLEX #30 gram Allergies Allergy/AdvReac Type Severity Reaction Status Date / Time Sulfa (Sulfonamide Allergy Intermediate HIVES Verified 06/02/20 07:26 Antibiotics) lisinopril Allergy Mild COUGH Verified 06/02/20 07:26 Review of Systems <CUAUHTEMOC Otoole - Last Filed: 06/01/20 16:04> Review of Systems Narrative: GENERAL: Denies chills, fatigue, malaise, fever, sweats. HEENT: Denies sinus pain, ear pain, sore throat, difficulty swallowing, dizziness. RESPIRATORY: Denies dyspnea, cough, wheezing, hemoptysis, sputum. CARDIOVASCULAR: See HPI GASTROINTESTINAL: Denies nausea, vomiting, abdominal pain, diarrhea, constipation, melena. : Denies dysuria, frequency, incontinence, hematuria, urinary retention. MUSCULOSKELETAL: denies weakness, joint pain, or bony pain SKIN: Denies rash, skin lesions, or other NEUROLOGIC: See HPI PSYCHIATRIC: No concerning psychosocial issues. 12 point review of systems is negative except for those stated above Patient History <CUAUHTEMOC Otoole - Last Filed: 06/01/20 16:04> Medical History Chicken pox (Resolved ~1950) Dizziness (Acute) Frequent UTI (Chronic) Hearing loss (Chronic) Hyperlipidemia (Chronic) Hypertension (Chronic) Hypomagnesemia (Acute) Hyponatremia (Acute) Measles (Resolved ~1950) Mumps (Resolved ~1950) Obstructive sleep apnea (Chronic) Palpitations (Acute) Shortness of breath on exertion (Acute) Snoring (Chronic) Vision disorder (Chronic) Surgical History Anesthesia (Resolved) Status post hernia repair (~1965) Family History Brother Age: 82 Detached retina Father Cancer Loud snoring Mother Hypertension Social History Smoking Status: Never smoker alcohol intake: current substance use type: does not use eating out: rarely or never Type(s) of exercise: bicycling Smoking Status: Never smoker Substance Use Type: does not use Exam <CUAUHTEMOC Otoole - Last Filed: 06/01/20 16:04> Narrative Exam Narrative: GENERAL: This is a well-nourished, well-developed patient, no acute distress ambulating into the emergency order department supervisor: Atraumatic. Normocephalic. No temporal or scalp tenderness. EYES: Pupils equal round and reactive. Extraocular motions intact. No scleral icterus. No injection or drainage. ENT: Nose without bleeding, purulent drainage or septal hematoma. Throat without erythema, tonsillar hypertrophy or exudate. Uvula midline. Airway patent. NECK: Trachea midline. No JVD or lymphadenopathy. Supple, nontender, no meningeal signs. CARDIOVASCULAR: Regular rate and rhythm RESPIRATORY: Clear to auscultation. Breath sounds equal bilaterally. No wheezes, rales, or rhonchi. No cough. No increased respiratory effort. No accessory muscle use GASTROINTESTINAL: Abdomen soft, non-tender, nondistended. No hepato-splenomegaly, or palpable masses. No guarding. EXTREMITIES: No clubbing, cyanosis, or edema. No joint tenderness, effusion, or edema noted. BACK: Nontender without deformity or crepitance. No flank tenderness. NEURO: AOx3. SKIN: No rash or erythema on visible skin Initial Vital Signs Initial Vital Signs: Vital Signs Blood Pressure 153/97 H 06/01/20 12:26 <Julio Cesar Alonso DO - Last Filed: 06/02/20 11:00> Initial Vital Signs Initial Vital Signs: Vital Signs Blood Pressure 153/97 H 06/01/20 12:26 Scores <CUAUHTEMOC Otoole - Last Filed: 06/01/20 16:04> GCS Sarah coma scale eye opening: Spontaneous Perry coma scale verbal response: Orientated Perry coma scale motor response: Obey commands Perry coma scale total score: 15 NIH Stroke Scale Level of Conciousness: Alert, keenly responsive Ask month/age: Answers both questions correctly. Open/close eyes, close hand: Performs both tasks correctly Best gaze horizontal: Normal Visual cook: No visual loss Facial palsy: Normal symetrical movement Left arm drift: No drift for full 10 sec Right arm drift: No drift for full 10 sec Left leg drift: No drift for full 10 sec Right leg drift: No drift for full 10 sec Limb ataxia: Absent Sensory on face/arms/legs: Normal, no sensory loss Best language: No aphasia, normal Dysarthria: Normal Extinction or inattention: No abnormality Total NIH Stroke scale score: 0 Course <VIRGIE Otoole-BC - Last Filed: 06/01/20 16:04> Orders Ordered: Discontinued Medications Sodium Chloride (Normal Saline 0.9%) 1,000 mls @ 1,000 mls/hr IV BOLUS ONE Stop: 06/01/20 13:54 Last Infusion: 06/01/20 16:01 Dose: 0 mls/hr Documented by: Infusion: 06/01/20 13:16 Dose: 250 mls/hr Documented by: Admin: 06/01/20 13:16 Dose: 1,000 mls/hr Documented by: FLORY Magnesium Oxide (Mag Ox) 400 mg PO NOW ONE Stop: 06/01/20 13:59 Last Admin: 06/01/20 14:36 Dose: 400 mg Documented by: FLORY Vital Signs Vital signs: Vital Signs - 8 hr 06/01/20 12:26 06/01/20 12:27 06/01/20 12:30 Temperature Pulse Rate 106 H 89 Respiratory Rate 17 Blood Pressure 153/97 H Pulse Oximetry 99 99 06/01/20 12:31 06/01/20 13:00 06/01/20 13:11 Temperature 98.3 F Pulse Rate 95 H 84 Respiratory Rate 20 13 Blood Pressure 155/83 H 142/79 H Pulse Oximetry 98 97 06/01/20 13:30 06/01/20 14:00 06/01/20 14:31 Temperature Pulse Rate 85 83 94 H Respiratory Rate 18 18 23 Blood Pressure 149/74 H 160/86 H Pulse Oximetry 98 97 98 06/01/20 15:00 06/01/20 15:30 06/01/20 15:38 Temperature Pulse Rate 74 85 78 Respiratory Rate 17 35 H 18 Blood Pressure 158/75 H Pulse Oximetry 98 97 98 <Julio Cesar Alonso DO - Last Filed: 06/02/20 11:00> Orders Ordered: Discontinued Medications Sodium Chloride (Normal Saline 0.9%) 1,000 mls @ 1,000 mls/hr IV BOLUS ONE Stop: 06/01/20 13:54 Last Infusion: 06/01/20 16:01 Dose: 0 mls/hr Documented by: Infusion: 06/01/20 13:16 Dose: 250 mls/hr Documented by: Admin: 06/01/20 13:16 Dose: 1,000 mls/hr Documented by: FLORY Magnesium Oxide (Mag Ox) 400 mg PO NOW ONE Stop: 06/01/20 13:59 Last Admin: 06/01/20 14:36 Dose: 400 mg Documented by: FLORY Vital Signs Vital signs: Vital Signs - 8 hr 06/01/20 12:26 06/01/20 12:27 06/01/20 12:30 Temperature Pulse Rate 106 H 89 Respiratory Rate 17 Blood Pressure 153/97 H Pulse Oximetry 99 99 06/01/20 12:31 06/01/20 13:00 06/01/20 13:11 Temperature 98.3 F Pulse Rate 95 H 84 Respiratory Rate 20 13 Blood Pressure 155/83 H 142/79 H Pulse Oximetry 98 97 06/01/20 13:30 06/01/20 14:00 06/01/20 14:31 Temperature Pulse Rate 85 83 94 H Respiratory Rate 18 18 23 Blood Pressure 149/74 H 160/86 H Pulse Oximetry 98 97 98 06/01/20 15:00 06/01/20 15:30 06/01/20 15:38 Temperature Pulse Rate 74 85 78 Respiratory Rate 17 35 H 18 Blood Pressure 158/75 H Pulse Oximetry 98 97 98 MDM - Arrhythmia/Palpitations <CUAUHTEMOC Otoole - Last Filed: 06/01/20 16:04> Lab Data Result diagrams: 06/01/20 12:34 06/01/20 12:34 Labs: Lab Results 06/01/20 06/01/20 06/01/20 Range/Units 12:34 12:34 12:34 WBC 7.7 (4.5-11.0) X10^3/uL RBC 5.02 (4.0-5.2) X10^6/uL Hgb 15.7 (12.0-16.0) g/dL Hct 45.4 (36-46) % MCV 90.4 (80-100) fL MCH 31.3 (26-34) PG MCHC 34.6 (30-36) % RDW 12.9 (11.6-14.8) % Plt Count 176 (150-400) X10^3/uL Neut % (Auto) 60.8 (50-75) % Lymph % (Auto) 26.8 (25-40) % [place] % (Auto) 11.5 (3-14) % Eos % (Auto) 0.6 L (2-4) % Baso % (Auto) 0.3 (0-2) % Neut # (Auto) 4700 (1118-5847) /uL Lymph # (Auto) 2100 (1380-2352) /uL [place] # (Auto) 900 (0-900) /uL Eos # (Auto) 0 (0-450) /uL Baso # (Auto) 0 (0-100) /uL PT 11.6 (10.1-12.7) SECONDS INR 1.0 (0.9-1.3) APTT 38 H (26.4-36.2) SECONDS D-Dimer < 200 (<230) ng/mL Sodium (137-145) mmol/L Potassium (3.4-5.1) mmol/L Chloride (98-107) mmol/L Carbon Dioxide (22-32) mmol/L BUN (7-17) mg/dL Creatinine (0.52-1.04) mg/dL Estimated GFR (>60) mL/min BUN/Creatinine Ratio (6-22) Glucose (80-110) mg/dL Calcium (8.4-10.2) mg/dL Magnesium (1.6-2.3) mg/dL Total Bilirubin (0.2-1.3) mg/dL AST (14-36) IU/L ALT (<35) IU/L Alkaline Phosphatase (38-126) U/L Total Creatine Kinase (30-135) U/L CK-MB (CK-2) CK-MB (CK-2) Rel Index Troponin I (0.01-0.034) ng/mL NT-Pro-B Natriuret Pep 102 (<450) pg/mL Total Protein (6.3-8.2) g/dL Albumin (3.5-5.0) g/dL Globulin (1.7-4.1) g/dL Albumin/Globulin Ratio (1.0-2.8) Lipase (23-300) U/L Urine Color Urine Appearance Urine pH (4.5-8.0) Ur Specific [place] (1.000-1.035) Urine Protein (Negative) Urine Glucose (UA) (Negative) g/dL Urine Ketones (NEGATIVE) Urine Occult Blood (Negative) Urine Nitrate (Negative) Urine Bilirubin (NEGATIVE) Urine Urobilinogen (0.2) E.U./dL Ur Leukocyte Esterase (NEGATIVE) Urine RBC (0-5/HPF) Urine WBC (0-5/HPF) Ur Squamous Epith Cells (0-5/HPF) Urine Bacteria (None) Ur Culture Indicated? 06/01/20 06/01/20 06/01/20 Range/Units 12:34 12:34 14:43 WBC (4.5-11.0) X10^3/uL RBC (4.0-5.2) X10^6/uL Hgb (12.0-16.0) g/dL Hct (36-46) % MCV (80-100) fL MCH (26-34) PG MCHC (30-36) % RDW (11.6-14.8) % Plt Count (150-400) X10^3/uL Neut % (Auto) (50-75) % Lymph % (Auto) (25-40) % [place] % (Auto) (3-14) % Eos % (Auto) (2-4) % Baso % (Auto) (0-2) % Neut # (Auto) (7049-0656) /uL Lymph # (Auto) (9727-3743) /uL [place] # (Auto) (0-900) /uL Eos # (Auto) (0-450) /uL Baso # (Auto) (0-100) /uL PT (10.1-12.7) SECONDS INR (0.9-1.3) APTT (26.4-36.2) SECONDS D-Dimer (<230) ng/mL Sodium 128 L (137-145) mmol/L Potassium 3.5 (3.4-5.1) mmol/L Chloride 91 L (98-107) mmol/L Carbon Dioxide 28 (22-32) mmol/L BUN 17 (7-17) mg/dL Creatinine 0.53 (0.52-1.04) mg/dL Estimated GFR > 60.0 (>60) mL/min BUN/Creatinine Ratio 32.1 H (6-22) Glucose 115 H (80-110) mg/dL Calcium 10.1 (8.4-10.2) mg/dL Magnesium 1.3 L (1.6-2.3) mg/dL Total Bilirubin 0.8 (0.2-1.3) mg/dL AST 40 H (14-36) IU/L ALT 31 (<35) IU/L Alkaline Phosphatase 82 (38-126) U/L Total Creatine Kinase 33 (30-135) U/L CK-MB (CK-2) TNP CK-MB (CK-2) Rel Index TNP Troponin I < 0.012 (0.01-0.034) ng/mL NT-Pro-B Natriuret Pep (<450) pg/mL Total Protein 7.4 (6.3-8.2) g/dL Albumin 4.8 (3.5-5.0) g/dL Globulin 2.6 (1.7-4.1) g/dL Albumin/Globulin Ratio 1.8 (1.0-2.8) Lipase 138 (23-300) U/L Urine Color Yellow Urine Appearance Clear Urine pH 6.5 (4.5-8.0) Ur Specific [place] <=1.005 (1.000-1.035) Urine Protein Negative (Negative) Urine Glucose (UA) Negative (Negative) g/dL Urine Ketones Negative (NEGATIVE) Urine Occult Blood Negative (Negative) Urine Nitrate Negative (Negative) Urine Bilirubin Negative (NEGATIVE) Urine Urobilinogen 0.2 (0.2) E.U./dL Ur Leukocyte Esterase Negative (NEGATIVE) Urine RBC None seen (0-5/HPF) Urine WBC 0-1/hpf (0-5/HPF) Ur Squamous Epith Cells 1-5 /hpf D (0-5/HPF) Urine Bacteria None seen (None) Ur Culture Indicated? Cult not indicated 06/01/20 Range/Units 14:43 WBC (4.5-11.0) X10^3/uL RBC (4.0-5.2) X10^6/uL Hgb (12.0-16.0) g/dL Hct (36-46) % MCV (80-100) fL MCH (26-34) PG MCHC (30-36) % RDW (11.6-14.8) % Plt Count (150-400) X10^3/uL Neut % (Auto) (50-75) % Lymph % (Auto) (25-40) % [place] % (Auto) (3-14) % Eos % (Auto) (2-4) % Baso % (Auto) (0-2) % Neut # (Auto) (3195-0189) /uL Lymph # (Auto) (5029-4188) /uL [place] # (Auto) (0-900) /uL Eos # (Auto) (0-450) /uL Baso # (Auto) (0-100) /uL PT (10.1-12.7) SECONDS INR (0.9-1.3) APTT (26.4-36.2) SECONDS D-Dimer (<230) ng/mL Sodium (137-145) mmol/L Potassium (3.4-5.1) mmol/L Chloride (98-107) mmol/L Carbon Dioxide (22-32) mmol/L BUN (7-17) mg/dL Creatinine (0.52-1.04) mg/dL Estimated GFR (>60) mL/min BUN/Creatinine Ratio (6-22) Glucose (80-110) mg/dL Calcium (8.4-10.2) mg/dL Magnesium (1.6-2.3) mg/dL Total Bilirubin (0.2-1.3) mg/dL AST (14-36) IU/L ALT (<35) IU/L Alkaline Phosphatase (38-126) U/L Total Creatine Kinase 30 (30-135) U/L CK-MB (CK-2) TNP CK-MB (CK-2) Rel Index TNP Troponin I < 0.012 (0.01-0.034) ng/mL NT-Pro-B Natriuret Pep (<450) pg/mL Total Protein (6.3-8.2) g/dL Albumin (3.5-5.0) g/dL Globulin (1.7-4.1) g/dL Albumin/Globulin Ratio (1.0-2.8) Lipase (23-300) U/L Urine Color Urine Appearance Urine pH (4.5-8.0) Ur Specific [place] (1.000-1.035) Urine Protein (Negative) Urine Glucose (UA) (Negative) g/dL Urine Ketones (NEGATIVE) Urine Occult Blood (Negative) Urine Nitrate (Negative) Urine Bilirubin (NEGATIVE) Urine Urobilinogen (0.2) E.U./dL Ur Leukocyte Esterase (NEGATIVE) Urine RBC (0-5/HPF) Urine WBC (0-5/HPF) Ur Squamous Epith Cells (0-5/HPF) Urine Bacteria (None) Ur Culture Indicated? Imaging Data Chest x-ray: Radiologist[facility] [employer]: [address] [place] [id number] XRay Report Signed Patient: Betsy Cordero LMR#: [id number] : 2Acct:[id number] Age/Sex: 79 / FDate of Service: 06/01/20 Loc: ED Accession Number: [id number] Procedure: XR chest 1V Ordering Provider: Joan Herrera PROCEDURE: XR CHEST 1V INDICATIONS: shortness of breath TECHNIQUE: One view of the chest was acquired. COMPARISON: [facility], CHEST 2 VIEW, 07/10/2009, 8:27. FINDINGS: Surgical changes and devices: None. Lungs and pleura: Lungs are clear. No pleural effusions or pneumothorax. Mediastinum: Mediastinal contours appear normal. Heart size is normal. Bones and chest wall: No suspicious bony lesions. Overlying soft tissues appear unremarkable. IMPRESSION: No acute cardiopulmonary pathology. Dictated by: Nathan Ramirez M.D. on 06/01/2020 at 13:31 Approved by: Nathan Ramirez M.D. on 06/01/2020 at 13:31 ECG Data Attestation: I personally reviewed and interpreted this ECG as follows: Interpretation: Sinus rhythm. Ventricular rate 91. P.R. interval 224. QRS 100. viewed by Dr Gavin EDWARDS Narrative Medical decision making narrative: The patient is a 79 year female who presents with multiple complaints including palpitations, concern of arrhythmia, as well as transient episodic lightheadedness for few minutes fall in shower this morning. She is hemodynamically stable throughout her stay in the emergency department. Overall her exam is grossly benign. Chest x-ray shows no evidence of pneumonia. D-dimer is negative. BNP is negative as well. Her EKG shows sinus rhythm, initial troponin is negative. I spoke with patient's PCP, Emeterio REA, regarding her lab work results. We elected to start her on magnesium oxide for hypomag. Urinalysis is negative for any infection. Repeat troponin is also negative. Patient is to follow up with primary care provider in the next few days as arranged. PCP will arrange for outpatient monitor. Patient states she feels much improved throughout her stay in the emergency department, has no questions or concerns upon discharge. She states understanding of return precautions as well as follow-up care. <Julio Cesar Alonso, DO - Last Filed: 06/02/20 11:00> Lab Data Labs: Lab Results 06/01/20 06/01/20 06/01/20 Range/Units 12:34 12:34 12:34 WBC 7.7 (4.5-11.0) X10^3/uL RBC 5.02 (4.0-5.2) X10^6/uL Hgb 15.7 (12.0-16.0) g/dL Hct 45.4 (36-46) % MCV 90.4 (80-100) fL MCH 31.3 (26-34) PG MCHC 34.6 (30-36) % RDW 12.9 (11.6-14.8) % Plt Count 176 (150-400) X10^3/uL Neut % (Auto) 60.8 (50-75) % Lymph % (Auto) 26.8 (25-40) % [place] % (Auto) 11.5 (3-14) % Eos % (Auto) 0.6 L (2-4) % Baso % (Auto) 0.3 (0-2) % Neut # (Auto) 4700 (7082-7802) /uL Lymph # (Auto) 2100 (0441-3487) /uL [place] # (Auto) 900 (0-900) /uL Eos # (Auto) 0 (0-450) /uL Baso # (Auto) 0 (0-100) /uL PT 11.6 (10.1-12.7) SECONDS INR 1.0 (0.9-1.3) APTT 38 H (26.4-36.2) SECONDS D-Dimer < 200 (<230) ng/mL Sodium (137-145) mmol/L Potassium (3.4-5.1) mmol/L Chloride (98-107) mmol/L Carbon Dioxide (22-32) mmol/L BUN (7-17) mg/dL Creatinine (0.52-1.04) mg/dL Estimated GFR (>60) mL/min BUN/Creatinine Ratio (6-22) Glucose (80-110) mg/dL Calcium (8.4-10.2) mg/dL Magnesium (1.6-2.3) mg/dL Total Bilirubin (0.2-1.3) mg/dL AST (14-36) IU/L ALT (<35) IU/L Alkaline Phosphatase (38-126) U/L Total Creatine Kinase (30-135) U/L CK-MB (CK-2) CK-MB (CK-2) Rel Index Troponin I (0.01-0.034) ng/mL NT-Pro-B Natriuret Pep 102 (<450) pg/mL Total Protein (6.3-8.2) g/dL Albumin (3.5-5.0) g/dL Globulin (1.7-4.1) g/dL Albumin/Globulin Ratio (1.0-2.8) Lipase (23-300) U/L Urine Color Urine Appearance Urine pH (4.5-8.0) Ur Specific [place] (1.000-1.035) Urine Protein (Negative) Urine Glucose (UA) (Negative) g/dL Urine Ketones (NEGATIVE) Urine Occult Blood (Negative) Urine Nitrate (Negative) Urine Bilirubin (NEGATIVE) Urine Urobilinogen (0.2) E.U./dL Ur Leukocyte Esterase (NEGATIVE) Urine RBC (0-5/HPF) Urine WBC (0-5/HPF) Ur Squamous Epith Cells (0-5/HPF) Urine Bacteria (None) Ur Culture Indicated? 06/01/20 06/01/20 06/01/20 Range/Units 12:34 12:34 14:43 WBC (4.5-11.0) X10^3/uL RBC (4.0-5.2) X10^6/uL Hgb (12.0-16.0) g/dL Hct (36-46) % MCV (80-100) fL MCH (26-34) PG MCHC (30-36) % RDW (11.6-14.8) % Plt Count (150-400) X10^3/uL Neut % (Auto) (50-75) % Lymph % (Auto) (25-40) % [place] % (Auto) (3-14) % Eos % (Auto) (2-4) % Baso % (Auto) (0-2) % Neut # (Auto) (1856-8546) /uL Lymph # (Auto) (8304-3847) /uL [place] # (Auto) (0-900) /uL Eos # (Auto) (0-450) /uL Baso # (Auto) (0-100) /uL PT (10.1-12.7) SECONDS INR (0.9-1.3) APTT (26.4-36.2) SECONDS D-Dimer (<230) ng/mL Sodium 128 L (137-145) mmol/L Potassium 3.5 (3.4-5.1) mmol/L Chloride 91 L (98-107) mmol/L Carbon Dioxide 28 (22-32) mmol/L BUN 17 (7-17) mg/dL Creatinine 0.53 (0.52-1.04) mg/dL Estimated GFR > 60.0 (>60) mL/min BUN/Creatinine Ratio 32.1 H (6-22) Glucose 115 H (80-110) mg/dL Calcium 10.1 (8.4-10.2) mg/dL Magnesium 1.3 L (1.6-2.3) mg/dL Total Bilirubin 0.8 (0.2-1.3) mg/dL AST 40 H (14-36) IU/L ALT 31 (<35) IU/L Alkaline Phosphatase 82 (38-126) U/L Total Creatine Kinase 33 (30-135) U/L CK-MB (CK-2) TNP CK-MB (CK-2) Rel Index TNP Troponin I < 0.012 (0.01-0.034) ng/mL NT-Pro-B Natriuret Pep (<450) pg/mL Total Protein 7.4 (6.3-8.2) g/dL Albumin 4.8 (3.5-5.0) g/dL Globulin 2.6 (1.7-4.1) g/dL Albumin/Globulin Ratio 1.8 (1.0-2.8) Lipase 138 (23-300) U/L Urine Color Yellow Urine Appearance Clear Urine pH 6.5 (4.5-8.0) Ur Specific [place] <=1.005 (1.000-1.035) Urine Protein Negative (Negative) Urine Glucose (UA) Negative (Negative) g/dL Urine Ketones Negative (NEGATIVE) Urine Occult Blood Negative (Negative) Urine Nitrate Negative (Negative) Urine Bilirubin Negative (NEGATIVE) Urine Urobilinogen 0.2 (0.2) E.U./dL Ur Leukocyte Esterase Negative (NEGATIVE) Urine RBC None seen (0-5/HPF) Urine WBC 0-1/hpf (0-5/HPF) Ur Squamous Epith Cells 1-5 /hpf D (0-5/HPF) Urine Bacteria None seen (None) Ur Culture Indicated? Cult not indicated 06/01/20 Range/Units 14:43 WBC (4.5-11.0) X10^3/uL RBC (4.0-5.2) X10^6/uL Hgb (12.0-16.0) g/dL Hct (36-46) % MCV (80-100) fL MCH (26-34) PG MCHC (30-36) % RDW (11.6-14.8) % Plt Count (150-400) X10^3/uL Neut % (Auto) (50-75) % Lymph % (Auto) (25-40) % [place] % (Auto) (3-14) % Eos % (Auto) (2-4) % Baso % (Auto) (0-2) % Neut # (Auto) (4991-3364) /uL Lymph # (Auto) (9258-2781) /uL [place] # (Auto) (0-900) /uL Eos # (Auto) (0-450) /uL Baso # (Auto) (0-100) /uL PT (10.1-12.7) SECONDS INR (0.9-1.3) APTT (26.4-36.2) SECONDS D-Dimer (<230) ng/mL Sodium (137-145) mmol/L Potassium (3.4-5.1) mmol/L Chloride (98-107) mmol/L Carbon Dioxide (22-32) mmol/L BUN (7-17) mg/dL Creatinine (0.52-1.04) mg/dL Estimated GFR (>60) mL/min BUN/Creatinine Ratio (6-22) Glucose (80-110) mg/dL Calcium (8.4-10.2) mg/dL Magnesium (1.6-2.3) mg/dL Total Bilirubin (0.2-1.3) mg/dL AST (14-36) IU/L ALT (<35) IU/L Alkaline Phosphatase (38-126) U/L Total Creatine Kinase 30 (30-135) U/L CK-MB (CK-2) TNP CK-MB (CK-2) Rel Index TNP Troponin I < 0.012 (0.01-0.034) ng/mL NT-Pro-B Natriuret Pep (<450) pg/mL Total Protein (6.3-8.2) g/dL Albumin (3.5-5.0) g/dL Globulin (1.7-4.1) g/dL Albumin/Globulin Ratio (1.0-2.8) Lipase (23-300) U/L Urine Color Urine Appearance Urine pH (4.5-8.0) Ur Specific [place] (1.000-1.035) Urine Protein (Negative) Urine Glucose (UA) (Negative) g/dL Urine Ketones (NEGATIVE) Urine Occult Blood (Negative) Urine Nitrate (Negative) Urine Bilirubin (NEGATIVE) Urine Urobilinogen (0.2) E.U./dL Ur Leukocyte Esterase (NEGATIVE) Urine RBC (0-5/HPF) Urine WBC (0-5/HPF) Ur Squamous Epith Cells (0-5/HPF) Urine Bacteria (None) Ur Culture Indicated? Discharge Plan Departure Patient Disposition: Home Clinical Impression: History of palpitations, Hypomagnesemia, Hyponatremia, Breath shortness Discharge Date/Time: 06/01/20 15:55 Instructions: DI for Hyponatremia, DI for Shortness of Breath, DI for Dizziness-Nonvertigo, DI for Palpitations, DI for Hypomagnesemia Activity Restrictions/Additional Instructions: Thank you for trusting us with your care today. I am sorry that you have not been feeling well, and hope that you feel better soon. As discussed, your sodium and magnesium levels are a bit low. I sent a prescription of magnesium supplementation for you to take once a day to [facility]. I spoke with RONA Moore, your primary care provider. She would like you to follow-up with her in have your labs rechecked before your appointment. She will be working to arrange that for you. Please call her to schedule follow-up appointment. She will plan on ordering a outpatient monitor to watch your heart rate and rhythm at home. Please come back to emergency department for any acute concerns such as chest pain, shortness of breath, etcetera Prescriptions: New magnesium oxide 400 mg (241.3 mg magnesium) tablet 400 mg PO DAILY Qty: 14 RF: 0 No Action CA PANTOTHENATE/FOLIC ACID/VIT (MULTIVITAMIN) 1 tab PO Q DAY Qty: 0 RF: 0 CRANBERRY FRUIT CONCENTRATE (Cranberry) 450 mg PO QDAY Qty: 0 RF: 0 clobetasol 0.05 % cream See Rx Instructions .ROUTE .COMPLEX Qty: 120 RF: 2 atorvastatin 40 mg tablet 40 mg PO BEDTIME Qty: 90 RF: 3 (DME) blood-glucose meter [Blood Glucose Monitoring] Kit See Rx Instructions .ROUTE .MEDSUPPLY Qty: 1 RF: 0 metformin 1,000 mg tablet 1,000 mg PO BID Qty: 180 RF: 3 (DME) Blood Glucose Test Strip See Rx Instructions .ROUTE .MEDSUPPLY Qty: 100 RF: 3 lancets [TechLITE Lancets] 28 gauge misc See Rx Instructions .ROUTE .COMPLEX Qty: 100 RF: 3 hydrochlorothiazide 25 mg tablet 25 mg PO QDAY Qty: 90 RF: 1 estradiol [Estrace] 0.01 % (0.1 mg/gram) cream 0.5 gram VAG DAILY Qty: 90 RF: 3 nystatin-triamcinolone 100,000-0.1 unit/gram-% ointment See Rx Instructions .ROUTE .COMPLEX Qty: 30 RF: 2 nitrofurantoin macrocrystal 100 mg capsule 100 mg PO BEDTIME RF: 0 vitamin d 25 mcg capsule 1 cap PO DAILY RF: 0 acidophilus-pectin, citrus [Probiotic Acidophilus-Pectin] 100 million cell-10 mg capsule PO DAILY RF: 0 oxybutynin chloride 5 mg tablet 5 mg PO DAILY RF: 0 amlodipine-olmesartan 5-20 mg tablet 1 tab PO DAILY Qty: 30 RF: 3 Referrals: Elicia Storm ARNP [Primary Care Provider] - <Julio Cesar Alonso DO - Last Filed: 06/02/20 11:00> Cosign ED Attending Wilmerature Attestation: I was immediately available in the department for consultation. This documentation has been reviewed and I agree with assessment and plan. Supervised by Julio Cesar Alonso DO
--- NOTE | 2020-06-01 12:34 | DI.RAD.S_ITS ---
PROCEDURE: XR CHEST 1V INDICATIONS: shortness of breath TECHNIQUE: One view of the chest was acquired. COMPARISON: [facility], , CHEST 2 VIEW, 07/10/2009, 8:27. FINDINGS: Surgical changes and devices: None. Lungs and pleura: Lungs are clear. No pleural effusions or pneumothorax. Mediastinum: Mediastinal contours appear normal. Heart size is normal. Bones and chest wall: No suspicious bony lesions. Overlying soft tissues appear unremarkable. IMPRESSION: No acute cardiopulmonary pathology. Dictated by: Nathan Ramirez M.D. on 06/01/2020 at 13:31 Approved by: Nathan Ramirez M.D. on 06/01/2020 at 13:31
[2020-06-01 12:42] LABS: Add Manual Diff / Slide Review NO; Basophils Absolute Auto 0 /uL (0-100); Basophils Percent Auto 0.3 % (0-2); Eosinophils Absolute Auto 0 /uL (0-450); Eosinophils Percent Auto 0.6 % (2-4); Hematocrit 45.4 % (36-46); Hemoglobin 15.7 g/dL (12.0-16.0); Lymphocytes Absolute Auto 2100 /uL (1100-4500); Lymphocytes Percent Auto 26.8 % (25-40); Mean Corpuscular HGB Conc 34.6 % (30-36); Mean Corpuscular Hemoglobin 31.3 PG (26-34); Mean Corpuscular Volume 90.4 fL (80-100); Monocytes Absolute Auto 900 /uL (0-900); Monocytes Percent Auto 11.5 % (3-14); Neutrophils Absolute Auto 4700 /uL (1500-7000); Neutrophils Percent Auto 60.8 % (50-75); Platelet Count 176 X10^3/uL (150-400); Red Blood Cell Count 5.02 X10^6/uL (4.0-5.2); Red Cell Distribution Width 12.9 % (11.6-14.8); White Blood Cell Count 7.7 X10^3/uL (4.5-11.0)
[2020-06-01 12:58] LABS: Prothrombin Time 11.6 SECONDS (10.1-12.7)
[2020-06-01 13:01] LABS: PTT Partial Thromboplastin Tim 38 SECONDS (26.4-36.2)
[2020-06-01 13:05] LABS: D Dimer < 200 ng/mL (<230)
[2020-06-01 13:10] LABS: Alanine Aminotransferase 31 IU/L (<35); Albumin 4.8 g/dL (3.5-5.0); Albumin Globulin Ratio 1.8 (1.0-2.8); Alkaline Phosphatase 82 U/L (38-126); Aspartate Aminotransferase 40 IU/L (14-36); BUN Creatinine Ratio 32.1 (6-22); Bilirubin Total 0.8 mg/dL (0.2-1.3); Blood Urea Nitrogen 17 mg/dL (7-17); Calcium 10.1 mg/dL (8.4-10.2); Carbon Dioxide 28 mmol/L (22-32); Chloride 91 mmol/L (98-107); Creatine Kinase 33 U/L (30-135); Estimated Glomerular Filt Rate > 60.0 mL/min (>60); Globulin 2.6 g/dL (1.7-4.1); Glucose 115 mg/dL (80-110); HEMOLYSIS 24 (0-50); Lipase 138 U/L (23-300); Potassium 3.5 mmol/L (3.4-5.1); Sodium 128 mmol/L (137-145); Total Protein 7.4 g/dL (6.3-8.2)
[2020-06-01 13:11] LABS: Magnesium 1.3 mg/dL (1.6-2.3)
[2020-06-01] MEDS: SODIUM CHLORIDE 0.9% 1,000 ML 1000 ML IV (13:16)
[2020-06-01 13:19] LABS: NT-proBNP (BNP-Adult 18+) 102 pg/mL (<450)
[2020-06-01 13:22] LABS: Troponin I < 0.012 ng/mL (0.01-0.034)
[2020-06-01] MEDS: MAGNESIUM OXIDE 400 MG TABLET PO (14:36)
[2020-06-01 14:49] LABS: Bacteria Urine None Seen; RBC Urine None Seen (0-5/HPF)
[2020-06-01 14:56] LABS: Appearance Urine UA CLEAR; Bilirubin Urine UA NEGATIVE (NEGATIVE); Color Urine UA YELLOW; Glucose Urine UA NEGATIVE (Negative); Ketones Urine UA NEGATIVE (NEGATIVE); Leukocyte Esterase Urine UA NEGATIVE (NEGATIVE); Nitrite Urine UA NEGATIVE (Negative); Occult Blood Urine UA NEGATIVE (Negative); Protein Urine UA NEGATIVE (Negative); Specific Gravity Urine UA <=1.005 (1.000-1.035); Urobilinogen Urine UA 0.2 E.U./dL (0.2)
[2020-06-01 15:05] LABS: Creatine Kinase 30 U/L (30-135)
[2020-06-01 15:17] LABS: Troponin I < 0.012 ng/mL (0.01-0.034)
[2020-06-01 15:26] LABS: Culture Indicated Urine Cult Not Indicated; Squamous Epithelial Cell Urine 1-5 /HPF (0-5/HPF); WBC Urine 0-1/HPF (0-5/HPF); pH Urine UA 6.5 (4.5-8.0)
== END 2020-06-01 15:55 | disposition home or self-care (01) ==
PROVIDERS: Emergency Provider Nurse Practitioner Family; PCP Nurse Practitioner
DX: R00.2 Palpitations (principal); E83.42 Hypomagnesemia; E87.1 Hypo-osmolality and hyponatremia; R06.02 Shortness of breath; E11.9 Type 2 diabetes mellitus without complications; Z71.3 Dietary counseling and surveillance
CPT/HCPCS: 36415; 71045; 80053; 81001; 82550; 83690; 83735; 83880; 84484; 85025; 85379; 85610; 85730; 93005; 93010; 96365; 96366; 99284; G0109

== ENCOUNTER 2020-06-02 07:17 | Emergency (ER) | payer MEDICARE, BC, SELFPAY ==
[2020-06-02] VITALS (7 sets, daily range): BP systolic 129–178; BP diastolic 55–89; PULSE 79–97; RESP 13–20; TEMP 36.5; O2SAT 96–98; BMI 26.1
--- NOTE | 2020-06-02 07:20 | ED_ITS ---
HPI - Fall General Chief Complaint: Syncope Stated Complaint: dizziness with ground level fall Time Seen by Provider: 06/02/20 07:19 Source: patient, family and EMS Mode of arrival: EMS Limitations: no limitations History of Present Illness HPI Narrative: 79F nonsmoker with a recent case of thrash and prior episodes of electrolyte abnormalities presents with a chief complaint of some dizziness and lightheadedness which resulted in a fall and a minor head injury this morning. She had stood up, lost her balance and fell suffering a small skin tear on her left arm and falling back striking her head. She did not lose consciousness, she has no nausea, vomiting or diarrhea. She does not take any blood thinners. She denies any chest pain or shortness of breath. She feels thirsty and has had a decreased appetite in the aftermath of her thrush it admittedly has not much water. She was seen yesterday for weakness and was found to have a magnesium of 1.3 cm was treated with some magnesium oxide p.o.. Related Data Home Medications Medication Instructions Recorded Confirmed CA PANTOTHENATE/FOLIC ACID/VIT 1 tab PO Q DAY #0 09/13/11 05/05/20 (MULTIVITAMIN) CRANBERRY FRUIT CONCENTRATE 450 mg PO QDAY #0 01/27/13 05/05/20 (Cranberry) acidophilus 100 million cap PO DAILY cap 05/26/19 05/05/20 cell-pectin, citrus 10 mg capsule nitrofurantoin macrocrystal 100 mg 100 mg PO BEDTIME 05/26/19 05/05/20 capsule vitamin d 1 cap PO DAILY 05/26/19 05/05/20 oxybutynin chloride 5 mg tablet 5 mg PO DAILY 04/14/20 05/05/20 Previous Rx's Medication Instructions Recorded clobetasol 0.05 % topical cream See Rx Instructions .ROUTE 11/03/19 .COMPLEX #120 gram atorvastatin 40 mg tablet 40 mg PO BEDTIME #90 tab 01/03/20 blood-glucose meter #1 each 01/10/20 metformin 1,000 mg tablet 1,000 mg PO BID #180 tab 02/03/20 blood sugar diagnostic #100 each 02/18/20 lancets 28 gauge See Rx Instructions .ROUTE 03/06/20 .COMPLEX #100 each hydrochlorothiazide 25 mg tablet 25 mg PO QDAY #90 tab 03/31/20 estradiol 0.5 gram VAG DAILY #90 gram 04/06/20 amlodipine 5 mg-olmesartan 20 mg 1 tab PO DAILY #30 tab 05/23/20 tablet magnesium oxide 400 mg PO DAILY #14 tab 06/01/20 nystatin-triamcinolone 100,000 See Rx Instructions .ROUTE 06/01/20 unit/gram-0.1 % topical ointment .COMPLEX #30 gram Allergies Allergy/AdvReac Type Severity Reaction Status Date / Time Sulfa (Sulfonamide Allergy Intermediate HIVES Verified 06/02/20 07:26 Antibiotics) lisinopril Allergy Mild COUGH Verified 06/02/20 07:26 Review of Systems Constitutional Constitutional: Denies chills, Denies fatigue, Denies fever(s), Denies frequent falls, Denies lethargy and Denies weakness Eyes Eyes: Denies change in vision, Denies eye discharge, Denies irritation and Denies loss of vision ENT Ears, Nose, Mouth, and Throat: Denies change in voice, Denies dizziness, Denies neck pain, Denies sore throat and Denies throat swelling Cardiovascular Cardiovascular: Denies chest pain, Denies irregular heart rhythm, Denies lightheadedness, Denies palpitations, Denies dyspnea, Denies dyspnea on exertion and Denies orthopnea Respiratory Respiratory: Denies cough, Denies dyspnea, Denies dyspnea on exertion and Denies wheezing Gastrointestinal Gastrointestinal: Denies abdominal pain, Reports hematochezia, Denies change in bowel habits, Denies diarrhea, Denies nausea and Denies vomiting Musculoskeletal Musculoskeletal: Denies neck pain and Denies numbness Integumentary/Breasts Skin/Breast: Denies pruritus, Denies erythema, Denies rash and Denies wounds Neurologic Neurologic: Denies behavioral changes, Denies confusion, Denies dizziness, Denies frequent falls, Denies loss of vision, Denies numbness and Denies weakness Psychiatric Psychiatric: Denies anxiety, Denies behavioral changes, Denies confusion, Denies depression, Denies homicidal ideation and Denies suicidal ideation Endocrine Endocrine: Denies fatigue, Denies flushing and Denies palpitations Hematologic/Lymphatic Hematologic/Lymphatic: Denies easy bruising Allergic/Immunologic Allergic/Immunologic: Denies urticaria, Denies throat swelling and Denies wheezing Patient History Medical History Chicken pox (Resolved ~1949) Dizziness (Acute) Frequent UTI (Chronic) Hearing loss (Chronic) Hyperlipidemia (Chronic) Hypertension (Chronic) Hypomagnesemia (Acute) Hyponatremia (Acute) Measles (Resolved ~1949) Mumps (Resolved ~1949) Obstructive sleep apnea (Chronic) Palpitations (Acute) Shortness of breath on exertion (Acute) Snoring (Chronic) Vision disorder (Chronic) Surgical History Anesthesia (Resolved) Status post hernia repair (~1964) Family History Brother Age: 82 Detached retina Father Cancer Loud snoring Mother Hypertension Social History Smoking Status: Never smoker alcohol intake: current substance use type: does not use eating out: rarely or never Type(s) of exercise: bicycling Exam Narrative Exam Narrative: GENERAL: [71] year old patient appears stated age. Well- nourished, well-developed patient, in mild distress. HEAD: Atraumatic. Normocephalic. EYES: Pupils equal round and reactive. Extraocular motions intact. No scleral icterus. No injection or drainage. ENT: Nose without bleeding, purulent drainage. Throat without erythema, tonsillar hypertrophy or exudate. Airway patent. NECK: Trachea midline. Non tender CARDIOVASCULAR: Regular rate and rhythm without murmurs, gallops, or rubs. RESPIRATORY: Clear to auscultation. Breath sounds equal bilaterally. No wheezes, rales, or rhonchi. GASTROINTESTINAL: Abdomen soft, non-tender, nondistended. RECTAL: No active bleeding, no pain, no evidence of obvious hemorrhoid or fissure. Exam performed with patient's permission and female nursing geospatial imagery intelligence analyst at the bedside EXTREMITIES: No edema or joint tenderness. BACK: Nontender without deformity or crepitance. No flank tenderness. NEURO: AOx3. SKIN: No rash or erythema of visible areas Initial Vital Signs Initial Vital Signs: Vital Signs Temperature 97.7 F 06/02/20 07:20 Pulse Rate 90 06/02/20 07:20 Respiratory Rate 20 06/02/20 07:20 Blood Pressure 178/89 H 06/02/20 07:20 Pulse Oximetry 97 06/02/20 07:20 Course Course Course Narrative: patient feeling well after fluids. Does well with orthostatics. Ambulates through department without difficulty. Eating and drinking. Asymptomatic. Return precautions given. Questions answered to the apparent satisfaction of the patient and her . Orders Ordered: ED Orders 06/02/20 07:29 EKG-12 Lead Routine 06/02/20 07:30 Basic Metabolic Panel Stat Complete Blood Count AUTO DIFF Stat Magnesium Stat 06/02/20 07:56 CT head/brain wo con Stat Discontinued Medications Bacitracin (Bacitracin) 1 applic TOP NOW ONE Stop: 06/02/20 11:40 Sodium Chloride (Normal Saline 0.9%) 1,000 mls @ 1,000 mls/hr IV BOLUS ONE Stop: 06/02/20 08:18 Last Infusion: 06/02/20 08:40 Dose: 0 mls/hr Documented by: Admin: 06/02/20 07:34 Dose: 1,000 mls/hr Documented by: ALLA Magnesium Sulfate (Magnesium Sulfate) 2 gm in 50 mls @ 25 mls/hr IV NOW ONE Stop: 06/02/20 09:55 Last Infusion: 06/02/20 11:00 Dose: 0 mls/hr Documented by: ALLA Cosigned by: KATELYN Admin: 06/02/20 08:30 Dose: 25 mls/hr Documented by: ALLA Cosigned by: MAGDA Vital Signs Vital signs: Vital Signs - 8 hr 06/02/20 07:20 06/02/20 09:30 06/02/20 10:00 Temperature 97.7 F Pulse Rate 90 79 81 Pulse Rate [Orthostatic Lying] Pulse Rate [Orthostatic Sitting] Pulse Rate [Orthostatic Standing] Respiratory Rate 20 16 14 Blood Pressure 178/89 H 136/68 142/63 H Blood Pressure [Orthostatic Lying] Blood Pressure [Orthostatic Sitting] Blood Pressure [Orthostatic Standing] Pulse Oximetry 97 98 96 06/02/20 10:21 06/02/20 10:30 06/02/20 11:15 Temperature Pulse Rate 84 88 Pulse Rate [Orthostatic Lying] 83 Pulse Rate [Orthostatic Sitting] 85 Pulse Rate [Orthostatic Standing] 97 H Respiratory Rate 19 13 Blood Pressure 129/55 L Blood Pressure [Orthostatic Lying] 153/71 H Blood Pressure [Orthostatic Sitting] 147/70 H Blood Pressure [Orthostatic Standing] 129/55 L Pulse Oximetry 98 97 06/02/20 11:30 Temperature Pulse Rate 94 H Pulse Rate [Orthostatic Lying] Pulse Rate [Orthostatic Sitting] Pulse Rate [Orthostatic Standing] Respiratory Rate 16 Blood Pressure Blood Pressure [Orthostatic Lying] Blood Pressure [Orthostatic Sitting] Blood Pressure [Orthostatic Standing] Pulse Oximetry 98 - Fall Lab Data Result diagrams: 06/02/20 07:30 06/02/20 07:30 Labs: Lab Results 06/02/20 06/02/20 Range/Units 07:30 07:30 WBC 8.6 (4.5-11.0) X10^3/uL RBC 5.15 (4.0-5.2) X10^6/uL Hgb 16.1 H (12.0-16.0) g/dL Hct 46.6 H (36-46) % MCV 90.4 (80-100) fL MCH 31.3 (26-34) PG MCHC 34.6 (30-36) % RDW 12.9 (11.6-14.8) % Plt Count 192 (150-400) X10^3/uL Neut % (Auto) 49.6 L (50-75) % Lymph % (Auto) 40.0 (25-40) % [place] % (Auto) 9.4 (3-14) % Eos % (Auto) 0.7 L (2-4) % Baso % (Auto) 0.3 (0-2) % Neut # (Auto) 4200 (9075-4847) /uL Lymph # (Auto) 3400 (3796-4418) /uL [place] # (Auto) 800 (0-900) /uL Eos # (Auto) 100 (0-450) /uL Baso # (Auto) 0 (0-100) /uL Sodium 130 L (137-145) mmol/L Potassium 4.0 (3.4-5.1) mmol/L Chloride 92 L (98-107) mmol/L Carbon Dioxide 27 (22-32) mmol/L BUN 15 (7-17) mg/dL Creatinine 0.53 (0.52-1.04) mg/dL Estimated GFR > 60.0 (>60) mL/min BUN/Creatinine Ratio 28.3 H (6-22) Glucose 143 H (80-110) mg/dL Calcium 10.1 (8.4-10.2) mg/dL Magnesium 1.4 L (1.6-2.3) mg/dL Urine Dip Bedside Urine Glucose Negative Bedside Urine Bilirubin - Negative Bedside Urine Ketone - Negative Urine Specific Brant 1.010 Bedside Urine Occult Blood - Negative Bedside Urine pH 6.5 Bedside Urine Protein - Negative Bedside Urine Urobilinogen - Negative Bedside Urine Nitrite - Negative Bedside Urine Leukocytes - Negative Esterase Imaging Data CT scan - head: Radiologist's Impression: 50 Julio Cesar Alonso, DO Find Patient Imaging - Betsy Cordero 79 F 1940 ACTIVITY DATE EXAM STATUS AUTHOR 06/02/20 07:[address] [address] [address] Scan Report Signed Patient: Betsy Cordero LMR#: [id number] : [id number] Age/Sex: 79 / FDate of Service: 06/02/20 Loc: ED Accession Number: [id number] Procedure: CT head/brain wo con Ordering Provider: Julio Cesar Alonso D.O. PROCEDURE: CT HEAD/BRAIN WO CON INDICATIONS: fall, head injury TECHNIQUE: Noncontrast 4.5 mm thick angled axial sections acquired from the foramen magnum to the vertex, with coronal and sagittal reformats. For radiation dose reduction, the following was used: automated exposure control, adjustment of mA and/or kV according to patient size. COMPARISON: None. FINDINGS: Image quality: Excellent. CSF spaces: Basal cisterns are patent. No extra-axial fluid collections. The ventricles are symmetric in size and shape. Brain: No intracranial bleeds or masses. There is cerebral volume loss for age , with resultant ventricular and sulcal prominence. There are periventricular and deep white matter chronic small vessel ischemic changes. There is intracranial internal carotid artery atherosclerosis. Skull and face: Left posterior parietal scalp hematoma and swelling is seen. Calvarium and visualized facial bones appear intact, without suspicious lesions. Sinuses: Visualized sinuses and mastoids are clear. IMPRESSION: 1. No CT evidence of acute intracranial pathology. 2. Left posterior parietal scalp hematoma and swelling. No gross acute skull fracture. Dictated by: Nathan Ramirez M.D. on 06/02/2020 at 8:21 Approved by: Nathan Ramirez M.D. on 06/02/2020 at 8:22 Discharge Plan Departure Patient Disposition: Home Clinical Impression: Acute dehydration, Hypomagnesemia Instructions: Magnesium, DI for Dehydration -- Adult Activity Restrictions/Additional Instructions: 1. Drink plenty of fluids with frequent small sips. 2. For the next 24 hours a clear liquid diet is advised. After that please employ a brat diet which would include bananas, rice, apples, toast. 3. Please take medications as directed. Including Magnesium Oxide 400mg daily (over the counter) 4. Please follow-up with your doctor in the next 1-2 days. Call the office for an appointment. 5. Please return to the emergency Department for any worsening or persistent symptoms, such as increasing pain or fever. Prescriptions: No Action CA PANTOTHENATE/FOLIC ACID/VIT (MULTIVITAMIN) 1 tab PO Q DAY Qty: 0 RF: 0 CRANBERRY FRUIT CONCENTRATE (Cranberry) 450 mg PO QDAY Qty: 0 RF: 0 clobetasol 0.05 % cream See Rx Instructions .ROUTE .COMPLEX Qty: 120 RF: 2 atorvastatin 40 mg tablet 40 mg PO BEDTIME Qty: 90 RF: 3 (DME) blood-glucose meter [Blood Glucose Monitoring] Kit See Rx Instructions .ROUTE .MEDSUPPLY Qty: 1 RF: 0 metformin 1,000 mg tablet 1,000 mg PO BID Qty: 180 RF: 3 (DME) Blood Glucose Test Strip See Rx Instructions .ROUTE .MEDSUPPLY Qty: 100 RF: 3 lancets [TechLITE Lancets] 28 gauge misc See Rx Instructions .ROUTE .COMPLEX Qty: 100 RF: 3 hydrochlorothiazide 25 mg tablet 25 mg PO QDAY Qty: 90 RF: 1 estradiol [Estrace] 0.01 % (0.1 mg/gram) cream 0.5 gram VAG DAILY Qty: 90 RF: 3 nystatin-triamcinolone 100,000-0.1 unit/gram-% ointment See Rx Instructions .ROUTE .COMPLEX Qty: 30 RF: 2 nitrofurantoin macrocrystal 100 mg capsule 100 mg PO BEDTIME RF: 0 vitamin d 25 mcg capsule 1 cap PO DAILY RF: 0 acidophilus-pectin, citrus [Probiotic Acidophilus-Pectin] 100 million cell-10 mg capsule PO DAILY RF: 0 oxybutynin chloride 5 mg tablet 5 mg PO DAILY RF: 0 amlodipine-olmesartan 5-20 mg tablet 1 tab PO DAILY Qty: 30 RF: 3 magnesium oxide 400 mg (241.3 mg magnesium) tablet 400 mg PO DAILY Qty: 14 RF: 0 Referrals: Elicia Storm ARNP [Primary Care Provider] -
[2020-06-02 07:34] LABS: Add Manual Diff / Slide Review NO; Basophils Absolute Auto 0 /uL (0-100); Basophils Percent Auto 0.3 % (0-2); Eosinophils Absolute Auto 100 /uL (0-450); Eosinophils Percent Auto 0.7 % (2-4); Hematocrit 46.6 % (36-46); Hemoglobin 16.1 g/dL (12.0-16.0); Lymphocytes Absolute Auto 3400 /uL (1100-4500); Mean Corpuscular HGB Conc 34.6 % (30-36); Mean Corpuscular Hemoglobin 31.3 PG (26-34); Mean Corpuscular Volume 90.4 fL (80-100); Monocytes Absolute Auto 800 /uL (0-900); Monocytes Percent Auto 9.4 % (3-14); Neutrophils Absolute Auto 4200 /uL (1500-7000); Neutrophils Percent Auto 49.6 % (50-75); Platelet Count 192 X10^3/uL (150-400); Red Blood Cell Count 5.15 X10^6/uL (4.0-5.2); Red Cell Distribution Width 12.9 % (11.6-14.8); White Blood Cell Count 8.6 X10^3/uL (4.5-11.0)
[2020-06-02] MEDS: SODIUM CHLORIDE 0.9% 1,000 ML 1000 ML IV (07:34)
[2020-06-02 07:45] LABS: BUN Creatinine Ratio 28.3 (6-22); Blood Urea Nitrogen 15 mg/dL (7-17); Calcium 10.1 mg/dL (8.4-10.2); Carbon Dioxide 27 mmol/L (22-32); Chloride 92 mmol/L (98-107); Estimated Glomerular Filt Rate > 60.0 mL/min (>60); Glucose 143 mg/dL (80-110); HEMOLYSIS 18 (0-50); Magnesium 1.4 mg/dL (1.6-2.3); Sodium 130 mmol/L (137-145)
--- NOTE | 2020-06-02 07:56 | DI.CT.S_ITS ---
PROCEDURE: CT HEAD/BRAIN WO CON INDICATIONS: fall, head injury TECHNIQUE: Noncontrast 4.5 mm thick angled axial sections acquired from the foramen magnum to the vertex, with coronal and sagittal reformats. For radiation dose reduction, the following was used: automated exposure control, adjustment of mA and/or kV according to patient size. COMPARISON: None. FINDINGS: Image quality: Excellent. CSF spaces: Basal cisterns are patent. No extra-axial fluid collections. The ventricles are symmetric in size and shape. Brain: No intracranial bleeds or masses. There is cerebral volume loss for age, with resultant ventricular and sulcal prominence. There are periventricular and deep white matter chronic small vessel ischemic changes. There is intracranial internal carotid artery atherosclerosis. Skull and face: Left posterior parietal scalp hematoma and swelling is seen. Calvarium and visualized facial bones appear intact, without suspicious lesions. Sinuses: Visualized sinuses and mastoids are clear. IMPRESSION: 1. No CT evidence of acute intracranial pathology. 2. Left posterior parietal scalp hematoma and swelling. No gross acute skull fracture. Dictated by: Nathan Ramirez M.D. on 06/02/2020 at 8:21 Approved by: Nathan Ramirez M.D. on 06/02/2020 at 8:22
[2020-06-02] MEDS: MAGNESIUM SULFATE 2 GM/50 ML PIGGYBACK IV (08:30)
[2020-06-02] MEDS: BACITRACIN OINT 0.9 GM PCKT 1 APPLIC TOP (11:50)
== END 2020-06-02 12:07 | disposition home or self-care (01) ==
PROVIDERS: Emergency Provider Emergency Medicine; PCP Nurse Practitioner
DX: E86.0 Dehydration (principal); E83.42 Hypomagnesemia; S09.90XA Unspecified injury of head, initial encounter; W19.XXXA Unspecified fall, initial encounter
CPT/HCPCS: 70450; 80048; 81003; 83735; 85025; 93005; 93010; 96361; 96365; 96366; 99283; 99284

== ENCOUNTER 2020-06-05 09:19 | Observation (INO) | payer MEDICARE, BC, SELFPAY ==
[2020-06-05] VITALS (19 sets, daily range): BP systolic 121–169; BP diastolic 70–81; PULSE 79–112; RESP 16–28; TEMP 36.2–36.5; O2SAT 95–100; BMI 26.3; BMI 25.9
--- NOTE | 2020-06-05 09:35 | ED.SYNCOPE ---
HPI - Syncope General Chief Complaint: Weakness Stated Complaint: light headed/dizziness Time Seen by Provider: 06/05/20 09:25 Source: patient, EMS and old records reviewed Mode of arrival: EMS Limitations: physical limitation History of Present Illness HPI narrative: Patient is a 79-year-old female who presents after a near syncopal episode. She states that today she stood up she felt lightheaded a little dizzy had felt her knees buckle she caught herself between a piece of furniture and her caught the other side. She has no injury from her fall today. She has actually been seen evaluated here twice this month already once 3 days ago for a similar episode. And fell and hit her head. Prior to that she was found to be hyponatremic and hypomagnesemia. She currently denies any pain and chest pain or nausea she would like to find out why this keeps happening to her. MD complaint: almost passed out Related Data Home Medications Medication Instructions Recorded Confirmed CA PANTOTHENATE/FOLIC ACID/VIT 1 tab PO Q DAY #0 09/13/11 06/05/20 (MULTIVITAMIN) acidophilus 100 million 1 cap PO DAILY cap 05/26/19 06/05/20 cell-pectin, citrus 10 mg capsule nitrofurantoin macrocrystal 100 mg 100 mg PO BEDTIME 05/26/19 06/05/20 capsule vitamin d 1 cap PO DAILY 05/26/19 06/05/20 oxybutynin chloride 5 mg tablet 5 mg PO DAILY 04/14/20 06/05/20 amlodipine-olmesartan 1 tab PO BEDTIME 06/05/20 06/05/20 azelastine 1 - 2 spray INTRANASAL BID PRN 06/05/20 06/05/20 clobetasol 1 applic TOPICAL BID 06/05/20 06/05/20 cranberry 4,200 mg PO DAILY 06/05/20 06/05/20 estradiol [Estrace] 0.5 gram VAG BEDTIME 06/05/20 06/05/20 famotidine PO DAILY 06/05/20 06/05/20 fluticasone propionate [24 Hour 1 spray INTRANASAL BID 06/05/20 06/05/20 Allergy Relief] metformin 500 mg PO BID 06/05/20 06/05/20 nystatin-triamcinolone 1 applic TOPICAL BID 06/05/20 06/05/20 Previous Rx's Medication Instructions Recorded atorvastatin 40 mg tablet 40 mg PO BEDTIME #90 tab 01/03/20 blood-glucose meter #1 each 01/10/20 blood sugar diagnostic #100 each 02/18/20 lancets 28 gauge See Rx Instructions .ROUTE 03/06/20 .COMPLEX #100 each hydrochlorothiazide 25 mg tablet 25 mg PO QDAY #90 tab 03/31/20 magnesium oxide 400 mg PO DAILY #14 tab 06/01/20 Allergies Allergy/AdvReac Type Severity Reaction Status Date / Time Sulfa (Sulfonamide Allergy Intermediate HIVES Verified 06/02/20 07:26 Antibiotics) lisinopril Allergy Mild COUGH Verified 06/02/20 07:26 Review of Systems Review of Systems ROS Unobtainable: All systems reviewed & are unremarkable except as noted in HPI and below Constitutional Constitutional: Denies chills, Denies fever(s), Denies lethargy and Denies weakness Eyes Eyes: Denies change in vision, Denies eye discharge, Denies irritation and Denies loss of vision Cardiovascular Cardiovascular: Denies chest pain, Denies irregular heart rhythm, Denies lightheadedness, Denies palpitations, Denies dyspnea, Denies dyspnea on exertion and Denies orthopnea Respiratory Respiratory: Denies cough, Denies dyspnea, Denies dyspnea on exertion and Denies wheezing Gastrointestinal Gastrointestinal: Denies abdominal pain, Denies change in bowel habits, Denies diarrhea, Denies nausea and Denies vomiting Musculoskeletal Musculoskeletal: Denies abnormal gait, Denies arthralgias and Denies joint swelling Integumentary/Breasts Comments: Previous skin tear on the left arm Neurologic Neurologic: Denies abnormal gait, Denies loss of vision and Denies weakness Endocrine Endocrine: Denies palpitations Allergic/Immunologic Allergic/Immunologic: Denies wheezing Patient History Medical History Chicken pox (Resolved ~1949) Dizziness (Acute) Frequent UTI (Chronic) Hearing loss (Chronic) Hyperlipidemia (Chronic) Hypertension (Chronic) Hypomagnesemia (Acute) Hyponatremia (Acute) Measles (Resolved ~1949) Mumps (Resolved ~1949) Obstructive sleep apnea (Chronic) Palpitations (Acute) Shortness of breath on exertion (Acute) Snoring (Chronic) Vision disorder (Chronic) Surgical History Anesthesia (Resolved) Status post hernia repair (~1965) Family History Brother Age: 82 Detached retina Father Cancer Loud snoring Mother Hypertension Social History household members: spouse Smoking Status: Never smoker alcohol intake: current substance use type: does not use eating out: rarely or never Type(s) of exercise: bicycling Smoking Status: Never smoker alcohol intake frequency: holidays/special occasions only Substance Use Type: does not use Exam Initial Vital Signs Initial Vital Signs: Vital Signs Temperature 97.7 F 06/05/20 09:24 Pulse Rate 87 06/05/20 09:24 Respiratory Rate 16 06/05/20 09:24 Blood Pressure 169/81 H 06/05/20 09:24 Pulse Oximetry 97 06/05/20 09:24 GENERAL: Alert female and in no acute distress. HEENT: Head atraumatic,EOMI, pupils reactive, face symmetric, moist mucous membranes CARDIOVASCULAR: Regular rate and rhythm without murmurs, rubs or gallops. RESPIRATORY: Breath sounds equal bilaterally, no wheezes rales or rhonchi. ABDOMEN: Soft, nontender. Normoactive bowel sounds all 4 quadrants. No guarding or rebound. EXTREMITIES: Normal range of motion, no clubbing or edema. Neurovascularly intact NEUROLOGICAL: Alert and oriented x4.Normal gait and speech. Cranial nerves II through XII grossly intact. Good [id number], good [id number], strength equal bilaterally, no dysarthria or aphasia, sensation in tact to soft touch bilaterally, no visual changes, no facial droop SKIN: Warm, dry, no laceration, no petechiae, no rashes or lesions. Scores NIH Stroke Scale Level of Conciousness: Alert, keenly responsive Ask month/age: Answers both questions correctly. Open/close eyes, close hand: Performs both tasks correctly Best gaze horizontal: Normal Visual cook: No visual loss Facial palsy: Normal symetrical movement Left arm drift: No drift for full 10 sec Right arm drift: No drift for full 10 sec Left leg drift: No drift for full 10 sec Right leg drift: No drift for full 10 sec Limb ataxia: Absent Sensory on face/arms/legs: Normal, no sensory loss Best language: No aphasia, normal Dysarthria: Normal Extinction or inattention: No abnormality Total NIH Stroke scale score: 0 Course Orders Ordered: ED Orders 06/05/20 11:15 EKG-12 Lead Stat Acetaminophen (Tylenol) 650 mg PO Q6HR PRN PRN Reason: Fever/Mild Pain (1-3) Atorvastatin Calcium (Lipitor) 40 mg PO BEDTIME [facility] Docusate Sodium (Colace) 100 mg PO BID [facility] Enoxaparin Sodium (Lovenox) 40 mg SUBCUT DAILY [facility] Fluticasone Propionate (Flonase) 1 spray NASAL BID [facility] Ibuprofen (Advil) 600 mg PO Q6HR PRN PRN Reason: Fever/Mild Pain (1-3) Losartan Potassium (Cozaar) 50 mg PO DAILY [facility] Magnesium Hydroxide (Milk Of Magnesia) 30 ml PO DAILY PRN PRN Reason: Constipation Magnesium Oxide (Mag Ox) 400 mg PO DAILY [facility] Metformin HCl (Glucophage) 500 mg PO 0800,1700 [facility] Last Admin: 06/05/20 17:06 Dose: 500 mg Documented by: RODOLFO Naloxone HCl (Narcan) 0.2 mg IV Q2MIN PRN PRN Reason: Opiate Reversal Nitrofurantoin (Macrodantin) 100 mg PO BEDTIME [facility] Ondansetron HCl (Zofran) 4 mg IV Q8HR PRN PRN Reason: Nausea And Vomiting Oxybutynin (Ditropan) 5 mg PO DAILY [facility] Pantoprazole Sodium (Protonix) 20 mg PO 0600 [facility] Discontinued Medications Sodium Chloride (Normal Saline 0.9%) 1,000 mls @ 150 mls/hr IV CONT [facility] Last Infusion: 06/05/20 12:22 Dose: 0 mls/hr Documented by: Admin: 06/05/20 09:59 Dose: 150 mls/hr Documented by: MARIO Magnesium Sulfate (Magnesium Sulfate) 4 gm in 100 mls @ 50 mls/hr IV NOW ONE Stop: 06/05/20 16:59 Last Admin: 06/05/20 15:00 Dose: 50 mls/hr Documented by: RODOLFO Cosigned by: ILENE Magnesium Oxide (Mag Ox) 400 mg PO BID [facility] Vital Signs Vital signs: Vital Signs - 8 hr 06/05/20 11:00 06/05/20 11:47 07/13/20 12:00 Pulse Rate 85 94 H 83 Respiratory Rate 23 21 16 Blood Pressure 147/76 H Pulse Oximetry 98 98 98 06/05/20 12:15 06/05/20 12:17 06/05/20 12:21 Pulse Rate 82 83 79 Respiratory Rate 21 20 24 Blood Pressure 138/76 138/76 138/76 Pulse Oximetry 98 97 98 MDM - Syncope Lab Data Attestation: I reviewed the patient's lab results. Result diagrams: 06/05/20 09:15 06/05/20 09:15 Labs: Lab Results 06/05/20 06/05/20 Range/Units 09:15 09:15 WBC 7.4 (4.5-11.0) X10^3/uL RBC 5.02 (4.0-5.2) X10^6/uL Hgb 16.0 (12.0-16.0) g/dL Hct 44.4 (36-46) % MCV 88.4 (80-100) fL MCH 31.9 (26-34) PG MCHC 36.1 H (30-36) % RDW 12.9 (11.6-14.8) % Plt Count 195 (150-400) X10^3/uL Neut % (Auto) 61.8 (50-75) % Lymph % (Auto) 27.2 (25-40) % Barber % (Auto) 10.3 (3-14) % Eos % (Auto) 0.5 L (2-4) % Baso % (Auto) 0.2 (0-2) % Neut # (Auto) 4600 (5169-2985) /uL Lymph # (Auto) 2000 (4707-5245) /uL Barber # (Auto) 800 (0-900) /uL Eos # (Auto) 0 (0-450) /uL Baso # (Auto) 0 (0-100) /uL Sodium 130 L (137-145) mmol/L Potassium 4.0 (3.4-5.1) mmol/L Chloride 90 L (98-107) mmol/L Carbon Dioxide 28 (22-32) mmol/L BUN 10 (7-17) mg/dL Creatinine 0.51 L (0.52-1.04) mg/dL Estimated GFR > 60.0 (>60) mL/min BUN/Creatinine Ratio 19.6 (6-22) Glucose 147 H (80-110) mg/dL Calcium 9.9 (8.4-10.2) mg/dL Magnesium 1.5 L (1.6-2.3) mg/dL Total Bilirubin 0.9 (0.2-1.3) mg/dL AST 29 (14-36) IU/L ALT 26 (<35) IU/L Alkaline Phosphatase 74 (38-126) U/L Total Creatine Kinase 23 L (30-135) U/L CK-MB (CK-2) TNP CK-MB (CK-2) Rel Index TNP Troponin I < 0.012 (0.01-0.034) ng/mL Total Protein 7.1 (6.3-8.2) g/dL Albumin 4.4 (3.5-5.0) g/dL Globulin 2.7 (1.7-4.1) g/dL Albumin/Globulin Ratio 1.6 (1.0-2.8) Point of Care Testing Glucose POC 129 Urine Dip Bedside Urine Glucose Negative Bedside Urine Bilirubin - Negative Bedside Urine Ketone - Negative Urine Specific [place] 1.010 Bedside Urine Occult Blood - Negative Bedside Urine pH 7.0 Bedside Urine Protein - Negative Bedside Urine Urobilinogen - Negative Bedside Urine Nitrite - Negative Bedside Urine Leukocytes - Negative Esterase Imaging Data CT scan - head: Radiologist's Impression: PROCEDURE: CT HEAD/BRAIN WO CON INDICATIONS: fall, head injury TECHNIQUE: Noncontrast 4.5 mm thick angled axial sections acquired from the foramen magnum to the vertex, with coronal and sagittal reformats. For radiation dose reduction, the following was used: automated exposure control, adjustment of mA and/or kV according to patient size. COMPARISON: None. FINDINGS: Image quality: Excellent. CSF spaces: Basal cisterns are patent. No extra-axial fluid collections. The ventricles are symmetric in size and shape. Brain: No intracranial bleeds or masses. There is cerebral volume loss for age, with resultant ventricular and sulcal prominence. There are periventricular and deep white matter chronic small vessel ischemic changes. There is intracranial internal carotid artery atherosclerosis. Skull and face: Left posterior parietal scalp hematoma and swelling is seen. Calvarium and visualized facial bones appear intact, without suspicious lesions. Sinuses: Visualized sinuses and mastoids are clear. IMPRESSION: 1. No CT evidence of acute intracranial pathology. 2. Left posterior parietal scalp hematoma and swelling. No gross acute skull fracture. Dictated by: Nathan Ramirez M.D. on 06/02/2020 at 8:21 Approved by: Nathan Ramirez M.D. on 06/02/2020 at 8:22 Chest x-ray: Radiologist's Impression: PROCEDURE: XR CHEST 1V INDICATIONS: shortness of breath TECHNIQUE: One view of the chest was acquired. COMPARISON: [facility], CHEST 2 VIEW, 07/10/2009, 8:27. FINDINGS: Surgical changes and devices: None. Lungs and pleura: Lungs are clear. No pleural effusions or pneumothorax. Mediastinum: Mediastinal contours appear normal. Heart size is normal. Bones and chest wall: No suspicious bony lesions. Overlying soft tissues appear unremarkable. IMPRESSION: No acute cardiopulmonary pathology. Dictated by: Nathan Ramirez M.D. on 06/01/2020 at 13:31 Approved by: Nathan Ramirez M.D. on 06/01/2020 at 13:31 ECG Data Attestation: I personally reviewed and interpreted this ECG as follows: Prior ECG tracings: available for review Interpretation: NSR rate 82, no ST changes similar to previous MDM Narrative Medical decision making narrative: Patient had multiple syncopal episodes, she has no focal deficits however she has fallen a few times. Electrolytes have improved since previous. At this time due to recurrent syncopal episodes and frequent falls will be admitted to observation for further evaluation. Dr. salgado agrees. Discharge Plan Departure Patient Disposition: Admitted as Observation Clinical Impression: Syncope Qualifiers: Syncope type: unspecified Qualified Code(s): R55 - Syncope and collapse Discharge Date/Time: 06/05/20 12:56 Referrals: Elicia Storm ARNP [Primary Care Provider] - Admit Date/Time: 06/05/20 12:22 Admit Provider: Lesia Salgado
[2020-06-05 09:52] LABS: Add Manual Diff / Slide Review NO; Basophils Absolute Auto 0 /uL (0-100); Basophils Percent Auto 0.2 % (0-2); Eosinophils Absolute Auto 0 /uL (0-450); Eosinophils Percent Auto 0.5 % (2-4); Hematocrit 44.4 % (36-46); Lymphocytes Absolute Auto 2000 /uL (1100-4500); Lymphocytes Percent Auto 27.2 % (25-40); Mean Corpuscular HGB Conc 36.1 % (30-36); Mean Corpuscular Hemoglobin 31.9 PG (26-34); Mean Corpuscular Volume 88.4 fL (80-100); Monocytes Absolute Auto 800 /uL (0-900); Monocytes Percent Auto 10.3 % (3-14); Neutrophils Absolute Auto 4600 /uL (1500-7000); Neutrophils Percent Auto 61.8 % (50-75); Platelet Count 195 X10^3/uL (150-400); Red Blood Cell Count 5.02 X10^6/uL (4.0-5.2); Red Cell Distribution Width 12.9 % (11.6-14.8); White Blood Cell Count 7.4 X10^3/uL (4.5-11.0)
[2020-06-05] MEDS: SODIUM CHLORIDE 0.9% 1,000 ML 150 ML IV (09:59)
[2020-06-05 10:05] LABS: Alanine Aminotransferase 26 IU/L (<35); Albumin 4.4 g/dL (3.5-5.0); Albumin Globulin Ratio 1.6 (1.0-2.8); Alkaline Phosphatase 74 U/L (38-126); Aspartate Aminotransferase 29 IU/L (14-36); BUN Creatinine Ratio 19.6 (6-22); Bilirubin Total 0.9 mg/dL (0.2-1.3); Blood Urea Nitrogen 10 mg/dL (7-17); Calcium 9.9 mg/dL (8.4-10.2); Carbon Dioxide 28 mmol/L (22-32); Chloride 90 mmol/L (98-107); Creatine Kinase 23 U/L (30-135); Estimated Glomerular Filt Rate > 60.0 mL/min (>60); Globulin 2.7 g/dL (1.7-4.1); Glucose 147 mg/dL (80-110); HEMOLYSIS 18 (0-50); Magnesium 1.5 mg/dL (1.6-2.3); Sodium 130 mmol/L (137-145); Total Protein 7.1 g/dL (6.3-8.2)
[2020-06-05 10:17] LABS: Troponin I < 0.012 ng/mL (0.01-0.034)
--- NOTE | 2020-06-05 14:40 | PC.ADMIT ---
[email or web address] [place] [address] Admission Note: The patient,Betsy Cordero,79 y/o, was given written information regarding hospital policies, unit procedures and contact persons. Patient's smoking status: Never smoker. Vital Signs - 8 hr 06/05/20 09:24 06/05/20 09:30 06/05/20 10:00 Temperature 97.7 F Pulse Rate 87 104 H 86 Pulse Rate [Orthostatic Lying] Pulse Rate [Orthostatic Sitting] Pulse Rate [Orthostatic Standing] Respiratory Rate 16 Blood Pressure 169/81 H 165/78 H 147/74 H Blood Pressure [Orthostatic Lying] Blood Pressure [Orthostatic Sitting] Blood Pressure [Orthostatic Standing] Pulse Oximetry 97 100 99 06/05/20 10:30 06/05/20 11:00 06/05/20 11:47 Temperature Pulse Rate 85 85 94 H Pulse Rate [Orthostatic Lying] Pulse Rate [Orthostatic Sitting] Pulse Rate [Orthostatic Standing] Respiratory Rate 23 21 Blood Pressure 137/79 147/76 H Blood Pressure [Orthostatic Lying] Blood Pressure [Orthostatic Sitting] Blood Pressure [Orthostatic Standing] Pulse Oximetry 98 98 98 06/05/20 12:00 06/05/20 12:15 06/05/20 12:17 Temperature Pulse Rate 83 82 83 Pulse Rate [Orthostatic Lying] Pulse Rate [Orthostatic Sitting] Pulse Rate [Orthostatic Standing] Respiratory Rate 16 21 20 Blood Pressure 138/76 138/76 Blood Pressure [Orthostatic Lying] Blood Pressure [Orthostatic Sitting] Blood Pressure [Orthostatic Standing] Pulse Oximetry 98 98 97 06/05/20 12:21 06/05/20 12:24 06/05/20 12:26 Temperature Pulse Rate 79 82 98 H Pulse Rate [Orthostatic Lying] Pulse Rate [Orthostatic Sitting] Pulse Rate [Orthostatic Standing] Respiratory Rate 24 28 H 17 Blood Pressure 138/76 135/73 144/79 H Blood Pressure [Orthostatic Lying] Blood Pressure [Orthostatic Sitting] Blood Pressure [Orthostatic Standing] Pulse Oximetry 98 98 96 06/05/20 12:29 06/05/20 12:30 06/05/20 12:31 Temperature Pulse Rate 112 H 93 H 79 Pulse Rate [Orthostatic Lying] Pulse Rate [Orthostatic Sitting] Pulse Rate [Orthostatic Standing] Respiratory Rate 28 H 23 16 Blood Pressure 121/73 157/70 H Blood Pressure [Orthostatic Lying] Blood Pressure [Orthostatic Sitting] Blood Pressure [Orthostatic Standing] Pulse Oximetry 96 97 97 06/05/20 12:32 06/05/20 13:40 Temperature 97.1 F L Pulse Rate 79 Pulse Rate [Orthostatic Lying] 84 Pulse Rate [Orthostatic Sitting] 96 H Pulse Rate [Orthostatic Standing] 100 H Respiratory Rate 18 Blood Pressure 143/71 H Blood Pressure [Orthostatic Lying] 135/73 Blood Pressure [Orthostatic Sitting] 144/79 H Blood Pressure [Orthostatic Standing] 121/73 Pulse Oximetry 99 Pt admitted to 224 from ED via w/c on RA. No acute distress. Reports dizziness with activity. Steady gait to BR and back to bed. Admit assessment completed. Pt unsure about dosing of some meds. to check on doses and meds and bring advanced directives back. Oriented to room/routine, use of call light, fall risk. Instructed to wait for assist before getting OOB. Pt and verbalize understanding.
--- NOTE | 2020-06-05 14:46 | PM.HP.1 ---
History of Present Illness History of Present Illness Date Patient Seen: 06/05/20 Chief complaint: NSR Narrative: Patient is 76-year-old female with a history of hypertension, type 2 diabetes, allergic rhinitis who presents after 3 episodes of syncope. Patient's 1st episode happened a week to 10 days ago. She was standing got lightheaded and passed out. Two days ago she was again standing felt like she was going to pass out did hit the ground but apparently injured her arm a she was going down. She was evaluated in the emergency room found to have a low magnesium and discharged home. In addition the patient presented again today as she was standing walking felt lightheaded her was next to her held onto her and helped her back down before she passed out. Patient states she always has a warning. She is upright feeling dizzy before she will go down. She has had no tonic-clonic activity. She has had no incontinence. No tongue biting. She has not lost complete consciousness during the episodes. The patient did have a head CT in the emergency room which was negative. She reports that her blood pressure medications were changed at the 1st of the month from a beta-gerry to amlodipine- olmesartan. Patient initially was taking in at dinnertime and subsequently started taking it at bedtime. Patient has previously had a Holter monitor to evaluate palpitations. Holter monitor showed some atrial tachycardia which would happen intermittently. The patient denies any shortness of breath cough fever chills. She does describe some burning in her chest which occurs intermittently but is not associated with pain radiation shortness of breath. She is on Famotidine. As the patient has had 3 syncopal episodes over the past few weeks she was admitted to the hospital for further evaluation. As part of her workup patient underwent orthostatic vital signs in the emergency room. The vital signs revealed her blood pressure to drop 20 points when going from lying to sitting with a concomitant rise of her heart rate of about 15 points. Patient is admitted to the hospital for further evaluation Patient History Medical History Chicken pox (Resolved ~1949) Dizziness (Acute) Frequent UTI (Chronic) Hearing loss (Chronic) Hyperlipidemia (Chronic) Hypertension (Chronic) Hypomagnesemia (Acute) Hyponatremia (Acute) Measles (Resolved ~1949) Mumps (Resolved ~1949) Obstructive sleep apnea (Chronic) Palpitations (Acute) Shortness of breath on exertion (Acute) Snoring (Chronic) Vision disorder (Chronic) Surgical History Anesthesia (Resolved) Status post hernia repair (~1965) Family & Social History Family History Brother Age: 82 Detached retina Father Cancer Loud snoring Mother Hypertension Social History: household members spouse Prior Living Arrangements Apartment/Condo Safety & Behavioral: Feels Safe in Current Yes Environment Been Physically Hurt or No Threatened By a Person Suicidal Ideation Description None Suicide Plan Description No Plan Tobacco & Substance use: Smoking Status Never smoker alcohol intake current alcohol intake frequency holiday/special occasion Substance Use Type does not use Meds Home Medications and Allergies Home Medications Medication Instructions Recorded Confirmed Type CA PANTOTHENATE/FOLIC ACID/VIT 1 tab PO Q DAY #0 09/13/11 06/05/20 History (MULTIVITAMIN) acidophilus 100 million 1 cap PO DAILY cap 05/26/19 06/05/20 History cell-pectin, citrus 10 mg capsule nitrofurantoin macrocrystal 100 mg 100 mg PO BEDTIME 05/26/19 06/05/20 History capsule vitamin d 1 cap PO DAILY 05/26/19 06/05/20 History atorvastatin 40 mg tablet 40 mg PO BEDTIME #90 tab 01/03/20 06/05/20 Rx blood-glucose meter #1 each 01/10/20 06/05/20 Rx blood sugar diagnostic #100 each 02/18/20 06/05/20 Rx lancets 28 gauge See Rx Instructions .ROUTE 03/06/20 06/05/20 Rx .COMPLEX #100 each hydrochlorothiazide 25 mg tablet 25 mg PO QDAY #90 tab 03/31/20 06/05/20 Rx oxybutynin chloride 5 mg tablet 5 mg PO DAILY 04/14/20 06/05/20 History magnesium oxide 400 mg PO DAILY #14 tab 06/01/20 06/05/20 Rx amlodipine-olmesartan 1 tab PO BEDTIME 06/05/20 06/05/20 History azelastine 1 - 2 spray INTRANASAL BID PRN 06/05/20 06/05/20 History clobetasol 1 applic TOPICAL BID 06/05/20 06/05/20 History cranberry 4,200 mg PO DAILY 06/05/20 06/05/20 History estradiol [Estrace] 0.5 gram VAG BEDTIME 06/05/20 06/05/20 History famotidine PO DAILY 06/05/20 06/05/20 History fluticasone propionate [24 Hour 1 spray INTRANASAL BID 06/05/20 06/05/20 History Allergy Relief] metformin 500 mg PO BID 06/05/20 06/05/20 History nystatin-triamcinolone 1 applic TOPICAL BID 06/05/20 06/05/20 History Allergies Allergy/AdvReac Type Severity Reaction Status Date / Time Sulfa (Sulfonamide Allergy Intermediate HIVES Verified 06/02/20 07:26 Antibiotics) lisinopril Allergy Mild COUGH Verified 06/02/20 07:26 Review of Systems Review of Systems ROS: Yes All systems reviewed with the patient and are negative except as otherwise documented Exam Vital Signs (past 8 hours): - 06/05/20 09:24 06/05/20 09:30 06/05/20 10:00 Temperature 97.7 F Pulse Rate 87 104 H 86 Pulse Rate [Orthostatic Lying] Pulse Rate [Orthostatic Sitting] Pulse Rate [Orthostatic Standing] Respiratory Rate 16 Blood Pressure 169/81 H 165/78 H 147/74 H Blood Pressure [Orthostatic Lying] Blood Pressure [Orthostatic Sitting] Blood Pressure [Orthostatic Standing] Pulse Oximetry 97 100 99 06/05/20 10:30 06/05/20 11:00 06/05/20 11:47 Temperature Pulse Rate 85 85 94 H Pulse Rate [Orthostatic Lying] Pulse Rate [Orthostatic Sitting] Pulse Rate [Orthostatic Standing] Respiratory Rate 23 21 Blood Pressure 137/79 147/76 H Blood Pressure [Orthostatic Lying] Blood Pressure [Orthostatic Sitting] Blood Pressure [Orthostatic Standing] Pulse Oximetry 98 98 98 06/05/20 12:00 06/05/20 12:15 06/05/20 12:17 Temperature Pulse Rate 83 82 83 Pulse Rate [Orthostatic Lying] Pulse Rate [Orthostatic Sitting] Pulse Rate [Orthostatic Standing] Respiratory Rate 16 21 20 Blood Pressure 138/76 138/76 Blood Pressure [Orthostatic Lying] Blood Pressure [Orthostatic Sitting] Blood Pressure [Orthostatic Standing] Pulse Oximetry 98 98 97 06/05/20 12:21 06/05/20 12:24 06/05/20 12:26 Temperature Pulse Rate 79 82 98 H Pulse Rate [Orthostatic Lying] Pulse Rate [Orthostatic Sitting] Pulse Rate [Orthostatic Standing] Respiratory Rate 24 28 H 17 Blood Pressure 138/76 135/73 144/79 H Blood Pressure [Orthostatic Lying] Blood Pressure [Orthostatic Sitting] Blood Pressure [Orthostatic Standing] Pulse Oximetry 98 98 96 06/05/20 12:29 06/05/20 12:30 06/05/20 12:31 Temperature Pulse Rate 112 H 93 H 79 Pulse Rate [Orthostatic Lying] Pulse Rate [Orthostatic Sitting] Pulse Rate [Orthostatic Standing] Respiratory Rate 28 H 23 16 Blood Pressure 121/73 157/70 H Blood Pressure [Orthostatic Lying] Blood Pressure [Orthostatic Sitting] Blood Pressure [Orthostatic Standing] Pulse Oximetry 96 97 97 06/05/20 12:32 06/05/20 13:40 Temperature 97.1 F L Pulse Rate 79 Pulse Rate [Orthostatic Lying] 84 Pulse Rate [Orthostatic Sitting] 96 H Pulse Rate [Orthostatic Standing] 100 H Respiratory Rate 18 Blood Pressure 143/71 H Blood Pressure [Orthostatic Lying] 135/73 Blood Pressure [Orthostatic Sitting] 144/79 H Blood Pressure [Orthostatic Standing] 121/73 Pulse Oximetry 99 Oxygen Delivery Method Room Air Oxygen Flow Rate 0 Narrative Exam Narrative: HEENT: Normocephalic atraumatic, extraocular muscles are intact oropharynx is clear with moist mucous members neck is supple, no adenopathy or thyromegaly noted Lungs: Clear to auscultation Cardiac exam: Irregular heart rate, normal S1-S2, 2/6 systolic ejection murmur Abdomen: Soft nontender nondistended, no hepatosplenomegaly exam: Follow-up with mild erythema, no intertriginous Rosy noted, there is a erythematous plaque on the left inner thigh Extremities: No edema Neuro exam: She is awake alert and appropriate, answers questions appropriately, speech is clear and fluent, there is no confusion. Cranial nerves 2-12 are intact strength is symmetric and equal, sensation is grossly intact, reflexes are brisk in each will, gait is not assessed Objective Labs Result Diagrams: 06/05/20 09:15 06/05/20 09:15 Labs: Laboratory Results - last 24 hr 06/05/20 06/05/20 09:15 09:15 WBC 7.4 RBC 5.02 Hgb 16.0 Hct 44.4 MCV 88.4 MCH 31.9 MCHC 36.1 H RDW 12.9 Plt Count 195 Neut % (Auto) 61.8 Lymph % (Auto) 27.2 [place] % (Auto) 10.3 Eos % (Auto) 0.5 L Baso % (Auto) 0.2 Neut # (Auto) 4600 Lymph # (Auto) 2000 [place] # (Auto) 800 Eos # (Auto) 0 Baso # (Auto) 0 Sodium 130 L Potassium 4.0 Chloride 90 L Carbon Dioxide 28 BUN 10 Creatinine 0.51 L Estimated GFR > 60.0 BUN/Creatinine Ratio 19.6 Glucose 147 H Calcium 9.9 Magnesium 1.5 L Total Bilirubin 0.9 AST 29 ALT 26 Alkaline Phosphatase 74 Total Creatine Kinase 23 L CK-MB (CK-2) TNP CK-MB (CK-2) Rel Index TNP Troponin I < 0.012 Total Protein 7.1 Albumin 4.4 Globulin 2.7 Albumin/Globulin Ratio 1.6 Assessment & Plan Assessment & Plan narrative: Impression 1. 79-year-old female admitted to the hospital for syncopal episode -patient has had 3 distinct episodes of syncope documented at home. -any chance stent the patient was upright when she became dizzy. -all symptoms occurred after initiation of a new blood pressure medication, amlodipine-Olmesartan -blood pressure 135/73 with a pulse of 84 lying blood pressure 144/79 with a pulse of 96 sitting blood pressure 121/73 with a pulse of 100 standing -head CT negative -recent Holter monitor confirms some atrial tachycardia but no atrial fibrillation -will discontinue amlodipine olmesartan, start losartan 50 mg daily given recent diagnosis of diabetes -will recheck orthostatic vital signs in the morning 2. Type 2 diabetes -new diagnosis in December, hemoglobin A1c 9.4, repeat 6.1 -continue metformin 500 twice daily 3. Hyponatremia -likely related to hydrochlorothiazide -will hold thiazide diuretic, check serum osmolality, start 1200 cc fluid restriction 4. Hypertension -monitor vital signs closely -start losartan 50 mg daily, discontinue amlodipine, discontinue thiazide diuretic 5. Hyperlipidemia -continue statin 6. Allergic rhinitis -continue nasal inhalers 7. Hypo magnesemia -continue magnesium -will supplement with magnesium sulfate here in the hospital -recheck in the morning Patient indicates she is a full code, will note that her record accordingly. Patient is admitted under observation anticipate discharge home tomorrow Patient will be placed on Lovenox for DVT prophylaxis. Her who is her surrogate decision maker is at the bedside. Quality VTE Deep Vein Thrombosis/Pulmonary Embolism Present on Admission: No
[2020-06-05] MEDS: MAGNESIUM SULFATE 4 GM/100 ML PIGGYBACK IV (15:00)
[2020-06-05 15:36] LABS: COVID19 -Nasal RAPID Negative (Negative)
[2020-06-05] MEDS: METFORMIN HCL 500 MG TABLET PO (17:06)
[2020-06-05] MEDS: DOCUSATE 100 MG CAPSULE PO (21:09)
[2020-06-05] MEDS: NITROFURANTOIN 50 MG CAPSULE 100 MG PO (21:09)
[2020-06-05] MEDS: FLUTICASONE 120 SPRAY/16 GM SPRAY.SUSP NASAL (21:09)
[2020-06-05] MEDS: ATORVASTATIN 20 MG TABLET 40 MG PO (21:09)
[2020-06-06] VITALS (8 sets, daily range): BP systolic 111–149; BP diastolic 74–90; PULSE 76–121; RESP 16–18; TEMP 35.9–36.7; O2SAT 95–98
[2020-06-06 05:16] LABS: Magnesium 2.1 mg/dL (1.6-2.3)
[2020-06-06 05:17] LABS: BUN Creatinine Ratio 23.9 (6-22); Blood Urea Nitrogen 11 mg/dL (7-17); Carbon Dioxide 27 mmol/L (22-32); Chloride 99 mmol/L (98-107); Estimated Glomerular Filt Rate > 60.0 mL/min (>60); Glucose 119 mg/dL (80-110); HEMOLYSIS < 15 (0-50); Potassium 3.9 mmol/L (3.4-5.1); Sodium 131 mmol/L (137-145)
[2020-06-06] MEDS: PANTOPRAZOLE 20 MG TABLET PO (05:42)
[2020-06-06] MEDS: METFORMIN HCL 500 MG TABLET PO ×2 (08:38→16:25)
[2020-06-06] MEDS: DOCUSATE 100 MG CAPSULE PO ×2 (08:38→20:56)
[2020-06-06] MEDS: SODIUM CHLORIDE 0.9% FLUSH 10 ML IV ×2 (08:39→20:56)
[2020-06-06] MEDS: ENOXAPARIN 40 MG/0.4 ML SYRINGE SUBCUT (08:39)
[2020-06-06] MEDS: FLUTICASONE 120 SPRAY/16 GM SPRAY.SUSP NASAL ×2 (08:39→20:57)
[2020-06-06] MEDS: MAGNESIUM OXIDE 400 MG TABLET PO (08:39)
[2020-06-06] MEDS: LOSARTAN 50 MG TABLET PO (08:39)
[2020-06-06] MEDS: OXYBUTYNIN 5 MG TABLET PO (08:39)
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
--- NOTE | 2020-06-06 11:45 | PT.IIE ---
Surgical History (Last Reviewed 06/05/20 @ 14:52 by Lesia Salgado MD) Anesthesia (Resolved) Status post hernia repair (~1965) Medical History (Last Reviewed 06/05/20 @ 14:52 by Lesia Salgado MD) Chicken pox (Resolved ~1950) Dizziness (Acute) Frequent UTI (Chronic) Hearing loss (Chronic) Hyperlipidemia (Chronic) Hypertension (Chronic) Hypomagnesemia (Acute) Hyponatremia (Acute) Measles (Resolved ~1950) Mumps (Resolved ~1950) Obstructive sleep apnea (Chronic) Palpitations (Acute) Shortness of breath on exertion (Acute) Snoring (Chronic) Vision disorder (Chronic) Physical Therapy Inpatient Evaluation/Re-Eval M1 PT/OT-IP Prior Functional Status Start: 06/06/20 10:43 Freq: NEEDED Status: Active Protocol: Document 06/06/20 11:32 AW (Rec: 06/06/20 12:05 AW [id number]) Medical Review Prior Functional Status Medical History Reviewed Yes Communication WNL. Pt is an effective verbal communicator. Mobility and Gait Pt is independent without AD and can walk up to six blocks at a time. She has an exercise bike at home and rides 30 minutes per day. 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 She manages her own medications. Social History Household Members spouse Living Arrangements Apartment/Condo Number of Floors (Floors) Two Floors Number of Stairs To Enter/Railing? 3 DEJA at the front of the house with wide B rails. 12 steps up to the second level with narrow B rails where her bedroom, office, and craft studio are. Home Environment High Toilet,Walk in Shower, Built-In Shower Seat Home Equipment Front Wheel Walker,Crutches, Hand Held Shower,Grab Bars In Shower Employment Status Retired Additional Social History Comment Pt lives with her , Handy, who has limitations due to back pain but is able to provide light assist. M2 PT-IP Current Condition Start: 06/06/20 10:43 Freq: NEEDED Status: Active Protocol: Document 06/06/20 11:32 AW (Rec: 06/06/20 12:05 AW [id number]) Physical Therapy Current Condition Current Condition Evaluation Date 07/14/20 Treatment Diagnosis syncope with GLF; difficulty in walking; impaired dynamic balance Onset Date 05/30/20 M3 PT-IP Subjective Start: 06/06/20 10:43 Freq: NEEDED Status: Active Protocol: Document 06/06/20 11:32 AW (Rec: 06/06/20 12:05 AW [id number]) Subjective Physical Therapy Visit Type Type Initial Evaluation Visit Start Time 11:03 Visit Stop Time 11:30 Total Visit Minutes 27 Notes Pt's spouse arrived before mobility assessment. Physical Therapy Visit Comments Patient Comments Pt is feeling good and hoping to discharge today. Therapy Pain Assessment Pain When Pain Assessed During Mobility Pain Present Pain Present Denied Pain M4 PT-IP Mobility and Gait Start: 06/06/20 10:43 Freq: NEEDED Status: Active Protocol: Document 06/06/20 11:32 AW (Rec: 06/06/20 12:05 AW [id number]) PT-Bed Mobility Assessment Supine to Sit Supine to Sit Independent Scooting Scooting to Edge of Bed Independent Scooting Up and Down in Bed Independent PT-Transfer Assessment Sit to and From Stand Sit to and from Stand Standby Assistance,Use of Upper Extremities Equipment Transfer Assistive Device Gait Belt Transfers Transfer Destination Chair Transfer Technique pt ambulated without AD Transfer Ability Level of Assist Independent Comments Mobility Comments Supine BP 149/81 HR 79. Pt was independent with all bed mobility but required SBA for sit to stand due to reported lightheadedness and unsteadiness in initial standing. BP in sitting was 142/88 HR 95 and dropped to 122/74 HR 121 in standing. Pt was able to transfer to the chair SBA where she reported improvement in symptoms. Pt stood again with SBA and ambulated in the halls for gait assessment. Upon return to the room, she transferred back to the chair independently. She was positioned there with call light and all needs in reach, her visiting in the room. Gait Assessment Gait Gait Assistance Required: Standby Assistance,Contact Guard Assist Distance (Feet) 200 Assistive Devices Assistive Device Gait Belt Orthotic/Prosthetic Devices or Brace: No Gait Deviations General Gait Pattern Antalgic,Decreased Stride Length,Decreased Feet Clearance,Flexed Trunk,Lateral Trunk Lean Factors Limiting Gait Function Factors Limiting Gait Function Decreased Sensation,Decreased Strength,Poor Balance,Poor Safety Awareness Comments Gait Comments Pt ambulated in the halls and underwent modified, 4-item DGI . Pt scored 6/12 indicating high risk of falls. One point was deducted for gait pattern, 2 points each for change in gait speed and horizontal head turns, 1 point for vertical head turns. During testing, pt required SBA and occasional CGA for LOB with speed changes and horizontal head turns. Stair Climbing Assessment Comments Stair Climbing Comments Not assessed. PT-Balance Assessment Sitting Balance and Reactions Static Sitting Balance Ability Normal Dynamic Sitting Balance Ability Normal Standing Balance and Reactions Static Standing Balance Ability Good Dynamic Standing Balance Ability Fair Device Used none Balance Tests Ruiz Balance Test Score 44/56 Query Text:Score Functional Assessments Functional Tests Dynamic Gait Index 4-item DGI 6/12 M5 PT-IP Objective Assessments Start: 06/06/20 10:43 Freq: NEEDED Status: Active Protocol: Document 06/06/20 11:32 AW (Rec: 06/06/20 12:05 AW [id number]) Orientation Orientation/Cognition Level of Alertness Alert Orientation Name,Day of Week,Place, Situation Language Function Ability No Deficits Noted Safety Awareness Decreased Safety Awareness Memory Description No Deficits Noted Gross Range of Motion Lower Extremity ROM Assessment Within Functional Limits Strength Lower Extremity Strength Assessment Within Functional Limits Comments Strength Comments BLE grossly 4+/5 Coordination Assessment Gross Coordination Gross Coordination WNL Sensation Assessment Sensation Gross Sensation WNL Muscle Tone Muscle Tone WNL Yes M6 PT-IP Treatment Start: 06/06/20 10:43 Freq: NEEDED Status: Active Protocol: Document 06/06/20 11:32 AW (Rec: 06/06/20 12:05 AW [id number]) Physical Therapy Treatment Education Education Provided Precautions,Safety Other Treatments Other Treatment Performed Provided education on role of PT for balance interventions. Pt agreeable to outpatient PT for balance concerns. M7 PT-IP Assessment and Plan Start: 06/06/20 10:43 Freq: NEEDED Status: Active Protocol: Document 06/06/20 11:32 AW (Rec: 06/06/20 12:05 AW [id number]) PT Summary Assessment and Plan Potential Rehabilitation Potential Good Status of Condition at Evaluation Stable Summary Impairments Strength,Balance,Gait Assessment Summary Betsy is a 79 yo woman seen for PT evaluation after being admitted observation status after multiple episodes of syncope and falls over the past few weeks. At baseline, she is independent without assistive device and requires no assist with ADL's. On evaluation, she had orthostatic hypotension ( documented separately), demonstrating initial unsteadiness in standing. Ruiz Balance score of 44/56 indicates decreased safety in ambulation and 4-item DGI score of 6/12 indicates increased risk of falls. PT discussed referral to outpatient therapy to work on dynamic balance and pt is agreeable. In the meantime, pt is encouraged to use her walking stick as needed for balance. Goals Transfer Goal Independent,Cane Gait Goal Independent,Cane Gait Distance 200 Other Goals - up/down 12 steps with bilateral rails SBA Days to Meet Goals 2 Frequency of Treatment Frequency Of Treatment Once a Day Treatment Plan Physical Therapy Treatment Plan Bed Mobility Training,Transfer Training,Gait Training, Therapeutic Exercise,Balance Retraining,Discharge Planning, Hot or Cold Pack,Neuromuscular Re-ed Other Recommendations and Next Treatment assess gait with SPC; balance Focus interventions Recommendations To Nursing Amount of Assist Needed Standby Assistance Discharge Recommendations PT Discharge Recommendations Home with Assistance, Outpatient PT Transportation Needs at Discharge Private Vehicle
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
--- NOTE | 2020-06-06 13:54 | PM.DS.1 ---
History of Present Illness History of Present Illness Date Patient Seen: 06/07/20 Time Patient Seen: 09:34 Chief complaint: NSR Narrative: As per Dr. Salgado, Patient is 76-year-old female with a history of hypertension, type 2 diabetes, allergic rhinitis who presents after 3 episodes of syncope. Patient's 1st episode happened a week to 10 days ago. She was standing got lightheaded and passed out. Two days ago she was again standing felt like she was going to pass out did hit the ground but apparently injured her arm a she was going down. She was evaluated in the emergency room found to have a low magnesium and discharged home. In addition the patient presented again today as she was standing walking felt lightheaded her was next to her held onto her and helped her back down before she passed out. Patient states she always has a warning. She is upright feeling dizzy before she will go down. She has had no tonic-clonic activity. She has had no incontinence. No tongue biting. She has not lost complete consciousness during the episodes. The patient did have a head CT in the emergency room which was negative. She reports that her blood pressure medications were changed at the 1st of the month from a beta-gerry to amlodipine- olmesartan. Patient initially was taking in at dinnertime and subsequently started taking it at bedtime. Patient has previously had a Holter monitor to evaluate palpitations. Holter monitor showed some atrial tachycardia which would happen intermittently. The patient denies any shortness of breath cough fever chills. She does describe some burning in her chest which occurs intermittently but is not associated with pain radiation shortness of breath. She is on Famotidine. As the patient has had 3 syncopal episodes over the past few weeks she was admitted to the hospital for further evaluation. As part of her workup patient underwent orthostatic vital signs in the emergency room. The vital signs revealed her blood pressure to drop 20 points when going from lying to sitting with a concomitant rise of her heart rate of about 15 points. Patient is admitted to the hospital for further evaluation Discharge Providers Provider Date of admission: 06/05/20 12:22 Discharge Date: 06/07/20 Primary care physician: RONA Moore Consults: 06/06/20 08:51 Consult to Physical Therapy Evaluate & Treat Comment: Physician Instructions: Evaluate and Treat Discharge provider: Iván Wright, DO Summary Hospital Course Discharge Diagnosis: Please see hospital course by problem list noted below: Hospital Course: 1. 79-year-old female admitted to the hospital for syncopal episode, likely secondary to orthostatic hypotension. -patient has had 3 distinct episodes of syncope. all symptoms occurred after initiation of a new blood pressure medication, amlodipine-Olmesartan -blood pressure 135/73 with a pulse of 84 lying blood pressure 144/79 with a pulse of 96 sitting blood pressure 121/73 with a pulse of 100 standing on arrival. -head CT was negative -recent Holter monitor confirms some atrial tachycardia but no atrial fibrillation -discontinued amlodipine olmesartan, started losartan 50 mg daily given recent diagnosis of diabetes. This produced a good balance of baseline tolerable blood pressures with minimal orthostatic symptoms. Further titration will be needed as an outpatient. Patient also developed some severe anxiety over the course of her admission and would consider beta gerry if further hypertension persists. 2. Type 2 diabetes -new diagnosis in December, hemoglobin A1c 9.4, repeat 6.1 -continue metformin 500 twice daily 3. Hyponatremia, acute possibly on chronic, pressent on admission, mild, asymptomatic -likely related to hydrochlorothiazide -will hold thiazide diuretic. Gave 500 cc of IV fluid. Patient appears euvolemic and now symptoms resolved. She reportedly has a history of hyponatremia, would avoid HCTZ in the future. 4. Hypertension, chronic -monitor vital signs closely -as noted above started losartan 50 mg daily, discontinued amlodipine, discontinued thiazide diuretic 5. Hyperlipidemia, chronic -continue statin 6. Allergic rhinitis, chronic -continue nasal inhalers 7. Hypomagnesemia, acute, present on admission. -repleted with IV magnesium after Mg of 1.5 on admission. -recheck was 2.1 after repletion. Dispo: discharged home. Exam Vital Signs (past 8 hours): - 06/06/20 07:18 06/06/20 08:40 06/06/20 11:00 Temperature 97.1 F L 97.5 F L Pulse Rate 76 78 Pulse Rate [Orthostatic Lying] 91 H Pulse Rate [Orthostatic Sitting] 89 Pulse Rate [Orthostatic Standing] 111 H Respiratory Rate 16 18 Blood Pressure 140/81 140/81 Blood Pressure [Orthostatic Lying] 148/80 H Blood Pressure [Orthostatic Sitting] 148/90 H Blood Pressure [Orthostatic Standing] 111/83 Pulse Oximetry 98 95 06/06/20 12:05 Temperature Pulse Rate Pulse Rate [Orthostatic Lying] 121 H Pulse Rate [Orthostatic Sitting] 95 H Pulse Rate [Orthostatic Standing] 79 Respiratory Rate Blood Pressure Blood Pressure [Orthostatic Lying] 122/74 Blood Pressure [Orthostatic Sitting] 142/88 H Blood Pressure [Orthostatic Standing] 149/81 H Pulse Oximetry Oxygen Delivery Method Room Air Oxygen Flow Rate 0 Narrative Exam Narrative: GENERAL APPEARANCE: Well developed, well nourished, in no acute distress. SKIN: Inspection of the skin reveals no rashes, ulcerations or petechiae. Ecchymosis on L arm, stable. HEENT: Normocephalic atraumatic, extraocular muscles are intact, oropharynx is clear and mucous membranes are moist, neck is supple without adenopathy NECK: Supple and symmetric. There was no thyroid enlargement, and no tenderness, or masses were felt. CHEST: Normal AP diameter and normal contour without any kyphoscoliosis. LUNGS: Auscultation of the lungs revealed no wheezes, rhonchi, or rales. CARDIOVASCULAR: There was a regular rate and rhythm without any murmurs, gallops, rubs. Peripheral pulses were 2+ and symmetric. ABDOMEN: Soft and nontender with normal bowel sounds. No ascites was noted. MUSCULOSKELETAL: There was no tenderness or effusions noted. Muscle strength and tone were normal. EXTREMITIES: No cyanosis, clubbing or edema. NEUROLOGIC: Alert and oriented x 3. Normal affect. Gait was slow but steady with walker. Strength is +5/5 in the Upper Extremities and Lower Extremities Bilaterally. Sensation to touch was normal. Objective Labs Result Diagrams: 06/05/20 09:15 06/06/20 04:54 Labs: Laboratory Results - last 24 hr 06/05/20 06/06/20 06/06/20 14:30 04:54 04:54 Sodium 131 L Potassium 3.9 Chloride 99 Carbon Dioxide 27 BUN 11 Creatinine 0.46 L Estimated GFR > 60.0 BUN/Creatinine Ratio 23.9 H Glucose 119 H Calcium 9.0 Magnesium 2.1 COVID-19 PCR Negative Discharge Plan Discharge Plan Patient Disposition: Home Discharge comment: You were admitted to the hospital with orthostatic hypotension and a low salt level. This can be common when taking the medications you were prescribed. Your blood pressure medications were changed slightly and you should follow up with your primary care provider (PCP) in the next 1-2 weeks to recheck your blood pressure. You should write down in a log your blood pressure at home in the morning and again after standing and show this to your PCP. Discharge orders & Medications Prescriptions: New losartan 50 mg Tablet 50 mg PO DAILY 30 Days Qty: 30 RF: 0 Continued CA PANTOTHENATE/FOLIC ACID/VIT (MULTIVITAMIN) 1 tab PO Q DAY Qty: 0 RF: 0 atorvastatin 40 mg tablet 40 mg PO BEDTIME Qty: 90 RF: 3 (DME) blood-glucose meter [Blood Glucose Monitoring] Kit See Rx Instructions .ROUTE .MEDSUPPLY Qty: 1 RF: 0 (DME) Blood Glucose Test Strip See Rx Instructions .ROUTE .MEDSUPPLY Qty: 100 RF: 3 lancets [TechLITE Lancets] 28 gauge misc See Rx Instructions .ROUTE .COMPLEX Qty: 100 RF: 3 nitrofurantoin macrocrystal 100 mg capsule 100 mg PO BEDTIME RF: 0 vitamin d 25 mcg capsule 1 cap PO DAILY RF: 0 acidophilus-pectin, citrus [Probiotic Acidophilus-Pectin] 100 million cell-10 mg capsule 1 cap PO DAILY RF: 0 oxybutynin chloride 5 mg tablet 5 mg PO DAILY RF: 0 magnesium oxide 400 mg (241.3 mg magnesium) tablet 400 mg PO DAILY Qty: 14 RF: 0 famotidine 20 mg Tablet 20 mg PO DAILY RF: 0 azelastine 137 mcg (0.1 %) aerosol,spray 1 - 2 spray INTRANASAL BID PRN (Reason: SEASONAL ALLERGIES) RF: 0 fluticasone propionate [24 Hour Allergy Relief] 50 mcg/actuation spray,suspension 1 spray INTRANASAL BID RF: 0 cranberry 500 mg Capsule 4,200 mg PO DAILY RF: 0 clobetasol 0.05 % cream 1 applic topical BID RF: 0 nystatin-triamcinolone 100,000-0.1 unit/gram-% ointment 1 applic topical BID RF: 0 metformin 1,000 mg tablet 500 mg PO BID RF: 0 estradiol [Estrace] 0.01 % (0.1 mg/gram) cream 0.5 gram VAG BEDTIME RF: 0 Discontinued hydrochlorothiazide 25 mg tablet 25 mg PO QDAY Qty: 90 RF: 1 amlodipine-olmesartan 5-20 mg tablet 1 tab PO BEDTIME RF: 0 Follow up/Referrals: Elicia Storm ARNP [Primary Care Provider] - Clone,PT, PT [Physical Therapist] - Discharge Health Status Health Concerns: orthostatic hypotension Diet/Activity/Treatments Diet: Diet as Tolerated and Carb-consistent/Diabetic Activity: As tolerated Visit Report/Discharge Packet Instructions: DI for Orthostatic Hypotension, DI for Hyponatremia, Losartan, DI for Hypomagnesemia Visit Report Forms: Patient Portal/API, Stroke Signs & Symptoms Discharge Data Primary Care Provider: Elicia Storm Attending Provider: Lesia Salgado Admit Date/Time: 06/05/20 12:22 Quality VTE Deep Vein Thrombosis/Pulmonary Embolism Present on Admission: No
[2020-06-06 14:36] LABS: Osmolality, Serum 262 mOsmol/kg (280-301)
--- NOTE | 2020-06-06 15:53 | P.PN_ITS ---
Subjective Subjective Date Patient Seen: 06/06/20 Time Patient Seen: 15:53 Interval history: Patient is 76-year-old female with a history of hypertension, type 2 diabetes, allergic rhinitis who presented after 3 episodes of syncope. All episodes were preceded by prior symptoms, in patient was found to be profoundly orthostatic upon admission. The patient is still orthostatic today, but her dizziness/lightheadedness has improved and she has not passed out when standing. She also has mild hyponatremia which is improving after stopping hydrochlorothiazide. Her magnesium level has improved. Patient still had risk factors as a fall risk per PT, and was still orthostatic so will plan for discharge tomorrow to allow for improved orthostatics and continued PT. Exam Vital Signs (past 8 hours): - 06/06/20 08:40 06/06/20 11:00 06/06/20 12:05 Temperature 97.5 F L Pulse Rate 78 Pulse Rate [Orthostatic Lying] 91 H 121 H Pulse Rate [Orthostatic Sitting] 89 95 H Pulse Rate [Orthostatic Standing] 111 H 79 Respiratory Rate 18 Blood Pressure 140/81 Blood Pressure [Orthostatic Lying] 148/80 H 122/74 Blood Pressure [Orthostatic Sitting] 148/90 H 142/88 H Blood Pressure [Orthostatic Standing] 111/83 149/81 H Pulse Oximetry 95 06/06/20 15:44 Temperature 96.6 F L Pulse Rate 90 Pulse Rate [Orthostatic Lying] Pulse Rate [Orthostatic Sitting] Pulse Rate [Orthostatic Standing] Respiratory Rate 18 Blood Pressure 148/88 H Blood Pressure [Orthostatic Lying] Blood Pressure [Orthostatic Sitting] Blood Pressure [Orthostatic Standing] Pulse Oximetry 98 Oxygen Delivery Method Room Air Oxygen Flow Rate 0 Narrative Exam Narrative: GENERAL APPEARANCE: Well developed, well nourished, in no acute distress. SKIN: Inspection of the skin reveals no rashes, ulcerations or petechiae. HEENT: Normocephalic atraumatic, extraocular muscles are intact, oropharynx is clear and mucous membranes are moist, neck is supple without adenopathy NECK: Supple and symmetric. There was no thyroid enlargement, and no tenderness, or masses were felt. CHEST: Normal AP diameter and normal contour without any kyphoscoliosis. LUNGS: Auscultation of the lungs revealed no wheezes, rhonchi, or rales. CARDIOVASCULAR: There was a regular rate and rhythm without any murmurs, gallops, rubs. Peripheral pulses were 2+ and symmetric. ABDOMEN: Soft and nontender with normal bowel sounds. No ascites was noted. MUSCULOSKELETAL: There was no tenderness or effusions noted. Muscle strength and tone were normal. EXTREMITIES: No cyanosis, clubbing or edema. NEUROLOGIC: Alert and oriented x 3. Normal affect. Gait was normal. Strength is +5/5 in the Upper Extremities and Lower Extremities Bilaterally. Sensation to touch was normal. Objective Labs Result Diagrams: 06/05/20 09:15 06/06/20 04:54 Labs: Laboratory Results - last 24 hr 06/05/20 06/06/20 06/06/20 09:15 04:54 04:54 Sodium 131 L Potassium 3.9 Chloride 99 Carbon Dioxide 27 BUN 11 Creatinine 0.46 L Estimated GFR > 60.0 BUN/Creatinine Ratio 23.9 H Glucose 119 H Serum Osmolality 262 L Calcium 9.0 Magnesium 2.1 Assessment & Plan Assessment & Plan narrative: 1. 79-year-old female admitted to the hospital for syncopal episode, likely secondary to orthostatic hypotension. -patient has had 3 distinct episodes of syncope. -all symptoms occurred after initiation of a new blood pressure medication, amlodipine-Olmesartan -blood pressure 135/73 with a pulse of 84 lying blood pressure 144/79 with a pulse of 96 sitting blood pressure 121/73 with a pulse of 100 standing. Blood pressures are similar today after holding 2 of her 3 home medications, her symptoms are improved but she nevertheless remains symptomatic when standing. Will give additional 500 cc NS bolus today and reassess tomorrow with PT and to allow further time for her home BP meds to wear off. -head CT negative -recent Holter monitor confirms some atrial tachycardia but no atrial fibrillation -will discontinue amlodipine olmesartan, start losartan 50 mg daily given re cent diagnosis of diabetes. BP today is borderline high at rest which will have to tolerate given orthostasis. -continue to follow orthostatics, and PT to continue. 2. Type 2 diabetes -new diagnosis in December, hemoglobin A1c 9.4, repeat 6.1 -continue metformin 500 twice daily 3. Hyponatremia -likely related to hydrochlorothiazide -will hold thiazide diuretic. Give NS bolus given orthostatic hypotension that is continuing. 4. Hypertension -monitor vital signs closely -start losartan 50 mg daily, discontinue amlodipine, discontinue thiazide diuretic 5. Hyperlipidemia -continue statin 6. Allergic rhinitis -continue nasal inhalers 7. Hypo magnesemia -continue magnesium -will supplement with magnesium sulfate here in the hospital -recheck in the morning was unremarkable. Patient indicates she is a full code, will note that her record accordingly. Patient is admitted under observation anticipate discharge home tomorrow Patient will be placed on Lovenox for DVT prophylaxis. Her who is her surrogate decision maker is at the bedside. Quality VTE Deep Vein Thrombosis/Pulmonary Embolism Present on Admission: No
[2020-06-06] MEDS: SODIUM CHLORIDE 0.9% 1,000 ML 500 ML IV (16:25)
[2020-06-06] MEDS: ATORVASTATIN 20 MG TABLET 40 MG PO (20:56)
[2020-06-06] MEDS: NITROFURANTOIN 50 MG CAPSULE 100 MG PO (21:03)
[2020-06-06 21:35] LABS: Bacteria Urine None Seen; RBC Urine None Seen (0-5/HPF); WBC Urine None Seen (0-5/HPF)
[2020-06-06 21:36] LABS: Appearance Urine UA CLEAR; Bilirubin Urine UA NEGATIVE (NEGATIVE); Color Urine UA YELLOW; Glucose Urine UA NEGATIVE (Negative); Ketones Urine UA NEGATIVE (NEGATIVE); Leukocyte Esterase Urine UA NEGATIVE (NEGATIVE); Nitrite Urine UA NEGATIVE (Negative); Occult Blood Urine UA NEGATIVE (Negative); Protein Urine UA NEGATIVE (Negative); Urobilinogen Urine UA 0.2 E.U./dL (0.2)
[2020-06-06 21:44] LABS: Culture Indicated Urine Cult Not Indicated
[2020-06-07 00:41] VITALS: BP 164/84; PULSE 107; RESP 18; TEMP 36.6; O2SAT 99
[2020-06-07 04:30] VITALS: BP 104/74; PULSE 93; RESP 16; TEMP 35.9; O2SAT 97
[2020-06-07] MEDS: PANTOPRAZOLE 20 MG TABLET PO (05:39)
[2020-06-07 05:45] VITALS: BP 104/74; BP 153/88; BP 164/94; PULSE 102; PULSE 108; PULSE 93
[2020-06-07 08:05] VITALS: PULSE 88; RESP 22
[2020-06-07 08:35] VITALS: BP 153/77; PULSE 91; RESP 15; TEMP 36.4; O2SAT 96
[2020-06-07] MEDS: METFORMIN HCL 500 MG TABLET PO (09:43)
[2020-06-07] MEDS: ENOXAPARIN 40 MG/0.4 ML SYRINGE SUBCUT (09:43)
[2020-06-07] MEDS: LOSARTAN 50 MG TABLET PO (09:43)
[2020-06-07] MEDS: DOCUSATE 100 MG CAPSULE PO (09:43)
[2020-06-07] MEDS: FLUTICASONE 120 SPRAY/16 GM SPRAY.SUSP NASAL (09:44)
[2020-06-07] MEDS: MAGNESIUM OXIDE 400 MG TABLET PO (09:44)
[2020-06-07] MEDS: OXYBUTYNIN 5 MG TABLET PO (10:50)
--- NOTE | 2020-06-07 11:56 | PT.IPTN ---
Physical Therapy Treatment Note M2 PT-IP Current Condition Start: 06/06/20 10:43 Freq: NEEDED Status: Active Protocol: Document 06/06/20 11:32 AW (Rec: 06/06/20 12:05 AW [id number]) Physical Therapy Current Condition Current Condition Evaluation Date 06/06/20 Treatment Diagnosis syncope with GLF; difficulty in walking; impaired dynamic balance Onset Date 05/30/20 M3 PT-IP Subjective Start: 06/06/20 10:43 Freq: NEEDED Status: Active Protocol: Document 06/07/20 11:47 AW (Rec: 06/07/20 11:56 AW [email or web address]) Subjective Physical Therapy Visit Type Type Treatment Note Visit Start Time 10:20 Visit Stop Time 10:45 Total Visit Minutes 25 Physical Therapy Visit Comments Patient Comments Pt rested well and has not had any dizziness this AM M4 PT-IP Mobility and Gait Start: 06/06/20 10:43 Freq: NEEDED Status: Active Protocol: Document 06/07/20 11:47 AW (Rec: 06/07/20 11:56 AW [email or web address]) PT-Transfer Assessment Sit to and From Stand Sit to and from Stand Standby Assistance,Use of Upper Extremities Equipment Transfer Assistive Device Gait Belt Transfers Transfer Destination Chair Transfer Technique pt ambulated without AD Transfer Ability Level of Assist Independent Comments Mobility Comments Sitting BP 149/79 HR 100. Pt stood from the chair SBA with use of her arms to push. Standing BP 141/78 HR 122. Pt denied dizziness. She ambulated to the toilet where she transferred to and from with use of the left-sided grab bar SBA. She then ambulated in the halls 270 feet x 2 SBA. She remained slightly unsteady but required no more than SBA and had no apparent LOB. After gait and stair training, pt returned to the room and transferred to the chair independently. Chair alarm was armed for safety and pt was left with all needs and call light in reach. Gait Assessment Gait Gait Assistance Required: Standby Assistance Distance (Feet) 270 Assistive Devices Assistive Device Gait Belt Gait Deviations General Gait Pattern Decreased Stride Length, Decreased Feet Clearance, Lateral Trunk Lean Factors Limiting Gait Function Factors Limiting Gait Function Decreased Sensation,Decreased Strength,Poor Balance,Poor Safety Awareness Comments Gait Comments Pt ambulated to the stairs and back without AD SBA. No apparent LOB. Pt was able to turn full circles without dizziness or LOB. Gait speed was improved slightly compared with yesterday and pt's confidence and self-efficacy were also improved. She navigated obstacles appropriately and was able to ambulate with only slight path deviations while turning her head side to side. Stair Climbing Assessment Evaluation Level of Assist On Stairs Standby Assistance Devices Stair Climbing Assistive Devices Left Railing,Right Railing Technique/Endurance Stair Climbing Direction Ascend and Descend Stair Climbing Technique Step Over Step Number of Steps Climbed 3 Stair Climbing Set # Repetitions (reps) 4 Comments Stair Climbing Comments SBA with B rails as at home. PT-Balance Assessment Sitting Balance and Reactions Static Sitting Balance Ability Normal Dynamic Sitting Balance Ability Normal Standing Balance and Reactions Static Standing Balance Ability Good Dynamic Standing Balance Ability Fair Device Used none M5 PT-IP Objective Assessments Start: 06/06/20 10:43 Freq: NEEDED Status: Active Protocol: Document 06/06/20 11:32 AW (Rec: 06/06/20 12:05 AW [id number]) Orientation Orientation/Cognition Level of Alertness Alert Orientation Name,Day of Week,Place, Situation Language Function Ability No Deficits Noted Safety Awareness Decreased Safety Awareness Memory Description No Deficits Noted Gross Range of Motion Lower Extremity ROM Assessment Within Functional Limits Strength Lower Extremity Strength Assessment Within Functional Limits Comments Strength Comments BLE grossly 4+/5 Coordination Assessment Gross Coordination Gross Coordination WNL Sensation Assessment Sensation Gross Sensation WNL Muscle Tone Muscle Tone WNL Yes M6 PT-IP Treatment Start: 06/06/20 10:43 Freq: NEEDED Status: Active Protocol: Document 06/07/20 11:47 AW (Rec: 06/07/20 11:56 AW [email or web address]) Physical Therapy Treatment Education Education Provided Precautions,Safety Other Treatments Other Treatment Performed Pt remains agreeable to outpatient PT to address balance concerns. M7 PT-IP Assessment and Plan Start: 06/06/20 10:43 Freq: NEEDED Status: Active Protocol: Document 06/07/20 11:47 AW (Rec: 06/07/20 11:56 AW [email or web address]) PT Summary Assessment and Plan Summary Impairments Strength,Balance,Gait Progress Towards Goals Progressing Toward Goals Assessment Summary Betsy improved her gait speed and balance reactions today with no apparent LOB during >500 feet ambulation with SBA. She cleared stairs. BP was stable and pt reported no dizziness. She is feeling confident about discharge. PT will sign off. Goals Transfer Goal Independent,Cane Gait Goal Independent,Cane Gait Distance 200 Other Goals - up/down 12 steps with bilateral rails SBA Days to Meet Goals 1 Frequency of Treatment Frequency Of Treatment Discharge Recommendations To Nursing Amount of Assist Needed 1 Person Assist Discharge Recommendations PT Discharge Recommendations Home with Assistance, Outpatient PT Transportation Needs at Discharge Private Vehicle
--- NOTE | 2020-06-07 12:16 | PC.NURSE ---
Addendum entered by Ellie Ha R.N. 06/07/20 13:20: intermittent c/o vague feelings assessed freq and completely- pt seems fine and md as well this RN consider this to be stress induced - as pt 's spouse very nervous to take her home as well- she is alert/oriented and reported to follow up with these needs with shemar bentley at her f/u visit ,discharged to home at this time Original Note: PREPARING FOR DISCHARGE- PT HAS WORKED WITH PT/SHOWERED AND AMBULATED IN ROOM- SHE HAD 1 VERY LIMITED EPISODE OF DIZZINESS IN WHICH THERE WERE NO NOTED ARRYTHMIAS OR CHANGE IN VITAL SIGNS- THIS EPISODE WAS ONLY SECONDS IN LENGTH AND SELF RESOLVING- REASSURED BOTH PT AND SPOUSE AND WILL CONTINUEWITH D/C TO HOME - REVIEWED AT LENGTH NEW RX AND SAFETY PLAN IN HOME ENVIRONMENT WELL FOLLOW UP CARE
--- NOTE | 2020-06-07 14:34 | CM.DPC ---
DCP continued: EMR reviewed. CM/RN met with patient and patients at the bedside. Patient was alert and oriented x3. Patient had just had a shower and participated with PT and stated she was feeling well. While CM was in the room she said she had a quick 2 min episode of Dizziness but it went away. Patients RN check patients BP which was 150s over 90s. Patient started to feel better and stated that she was ready to go home today. CM/RN answered questions. No needs noted and patient was D/C without any issues. Pilar Cohen RN
--- NOTE | 2020-06-12 17:10 | PC.NURSE ---
Late Entry: Magnesium infusion initiated 06/05 at 15:00, complete at 17:00. NS infusion initiated 06/06 at 16:25, complete at 18:25.
== END 2020-06-07 13:26 | disposition home or self-care (01) ==
LOC: ED 11:45 → AC 12:22
PROVIDERS: Nurse Practitioner Adult Health; Admitting Provider Internal Medicine; Emergency Provider Emergency Medicine; PCP Nurse Practitioner; Referring Provider Emergency Medicine; Visit Provider Internal Medicine
DX: R53.1 Weakness (principal); R55 Syncope and collapse; I10 Essential (primary) hypertension; E11.9 Type 2 diabetes mellitus without complications; J30.9 Allergic rhinitis, unspecified; E78.5 Hyperlipidemia, unspecified; Z79.84 Long term (current) use of oral hypoglycemic drugs; E87.1 Hypo-osmolality and hyponatremia; E83.42 Hypomagnesemia; Z11.59 Encounter for screening for other viral diseases
CPT/HCPCS: 36415; 80048; 80053; 81001; 81003; 82550; 82962; 83735; 83930; 84484; 85025; 87635; 93005; 93010; 96365; 96366; 96367; 96372; 97116; 97161; 97530; 99284; G0378; J1650; J3475

== ENCOUNTER 2020-06-08 14:38 | Emergency (ER) | payer MEDICARE, BC, SELFPAY ==
[2020-06-05 13:56] VITALS: BMI 25.9
[2020-06-08 14:40] VITALS: BP 183/90; PULSE 100; RESP 20; TEMP 37; O2SAT 98; BMI 26.1
--- NOTE | 2020-06-08 14:50 | DI.RAD.S_ITS ---
PROCEDURE: XR CHEST 1V INDICATIONS: Chest pain TECHNIQUE: One view of the chest was acquired. COMPARISON: [facility], CR, XR CHEST 1V, 06/01/2020, 12:50. FINDINGS: Surgical changes and devices: None. Lungs and pleura: Lungs are clear. No pleural effusions or pneumothorax. Mediastinum: Mediastinal contours appear normal. Heart size is normal. Bones and chest wall: No suspicious bony lesions. Overlying soft tissues appear unremarkable. IMPRESSION: No acute cardiopulmonary process demonstrated radiographically. Dictated by: Casimiro Hopkins M.D. on 06/08/2020 at 15:01 Approved by: Casimiro Hopkins M.D. on 06/08/2020 at 15:02
[2020-06-08 14:59] LABS: Add Manual Diff / Slide Review NO; Basophils Absolute Auto 0 /uL (0-100); Basophils Percent Auto 0.3 % (0-2); Eosinophils Absolute Auto 100 /uL (0-450); Eosinophils Percent Auto 0.7 % (2-4); Hematocrit 42.6 % (36-46); Hemoglobin 15.3 g/dL (12.0-16.0); Lymphocytes Absolute Auto 2000 /uL (1100-4500); Lymphocytes Percent Auto 27.8 % (25-40); Mean Corpuscular HGB Conc 35.9 % (30-36); Mean Corpuscular Volume 89.2 fL (80-100); Monocytes Absolute Auto 700 /uL (0-900); Monocytes Percent Auto 10.1 % (3-14); Neutrophils Absolute Auto 4400 /uL (1500-7000); Neutrophils Percent Auto 61.1 % (50-75); Platelet Count 185 X10^3/uL (150-400); Red Blood Cell Count 4.78 X10^6/uL (4.0-5.2); Red Cell Distribution Width 13.2 % (11.6-14.8); White Blood Cell Count 7.2 X10^3/uL (4.5-11.0)
--- NOTE | 2020-06-08 14:59 | ED_ITS ---
HPI - Chest Pain General Chief Complaint: Chest Pain Stated Complaint: L Chest Pain, General Weakness Time Seen by Provider: 06/08/20 14:41 Source: patient and EMS Mode of arrival: EMS Limitations: no limitations History of Present Illness HPI narrative: 79-year-old female who was discharged from the hospital yesterday after a stay for symptoms that were very similar for which she presents for today. She states that she is having left-sided burning in her chest. She states she has been burning. She had a during her last stay here in the hospital. She was told by the hospital provider that was anxiety. She is also having which she describes as dizziness when she looks down. This does not happen all the time but is an occasional issue. It has caused her to be somewhat unsteady on her feet. She states that she had the left-sided chest burning earlier today that went away on its own. He came again had approximately noon. She called EMS. Prior to their arrival the symptoms completely resolved. She has no symptoms upon arrival. Related Data Home Medications Medication Instructions Recorded Confirmed CA PANTOTHENATE/FOLIC ACID/VIT 1 tab PO Q DAY #0 09/13/11 06/05/20 (MULTIVITAMIN) acidophilus 100 million 1 cap PO DAILY cap 05/26/19 06/05/20 cell-pectin, citrus 10 mg capsule nitrofurantoin macrocrystal 100 mg 100 mg PO BEDTIME 05/26/19 06/08/20 capsule vitamin d 1 cap PO DAILY 05/26/19 06/05/20 oxybutynin chloride 5 mg tablet 5 mg PO DAILY 04/14/20 06/08/20 azelastine 1 - 2 spray INTRANASAL BID PRN 06/05/20 06/05/20 clobetasol 1 applic TOPICAL BID 06/05/20 06/08/20 cranberry 4,200 mg PO DAILY 06/05/20 06/05/20 estradiol [Estrace] 0.5 gram VAG BEDTIME 06/05/20 06/08/20 famotidine 20 mg PO DAILY 06/05/20 06/06/20 fluticasone propionate [24 Hour 1 spray INTRANASAL BID 06/05/20 06/05/20 Allergy Relief] metformin 500 mg PO BID 06/05/20 06/08/20 nystatin-triamcinolone 1 applic TOPICAL BID 06/05/20 06/05/20 Previous Rx's Medication Instructions Recorded atorvastatin 40 mg tablet 40 mg PO BEDTIME #90 tab 01/03/20 blood-glucose meter #1 each 01/10/20 blood sugar diagnostic #100 each 02/18/20 lancets 28 gauge See Rx Instructions .ROUTE 03/06/20 .COMPLEX #100 each magnesium oxide 400 mg PO DAILY #14 tab 06/01/20 losartan 50 mg PO DAILY 30 Days #30 tab 06/07/20 famotidine [Pepcid AC] 10 mg PO DAILY #30 tab 06/08/20 Allergies Allergy/AdvReac Type Severity Reaction Status Date / Time Sulfa (Sulfonamide Allergy Intermediate HIVES Verified 06/08/20 14:44 Antibiotics) lisinopril Allergy Mild COUGH Verified 06/08/20 14:44 Review of Systems Constitutional Constitutional: Denies fever(s), Denies headache(s) and Denies weakness ENT Ears, Nose, Mouth, and Throat: Denies vertigo, Reports dizziness, Denies hea dache(s) and Reports disequilibrium Cardiovascular Cardiovascular: Reports chest pain (Described as burning), Denies rapid heart rate, Denies edema and Denies dyspnea Respiratory Respiratory: Denies dyspnea Gastrointestinal Gastrointestinal: Denies abdominal pain, Denies change in bowel habits, Denies diarrhea, Denies nausea and Denies vomiting Genitourinary Genitourinary: Denies dysuria Genitourinary: Denies dysuria Musculoskeletal Musculoskeletal: Denies arthralgias, Denies myalgias and Denies tingling Integumentary/Breasts Skin/Breast: Denies lesions and Denies rash Neurologic Neurologic: Denies vertigo, Reports dizziness, Denies headache(s), Denies tingling, Reports disequilibrium and Denies weakness Hematologic/Lymphatic Hematologic/Lymphatic: Denies easy bleeding and Denies easy bruising Allergic/Immunologic Allergic/Immunologic: Denies urticaria Patient History Medical History Chicken pox (Resolved ~1949) Dizziness (Acute) Frequent UTI (Chronic) Hearing loss (Chronic) Hyperlipidemia (Chronic) Hypertension (Chronic) Hypomagnesemia (Acute) Hyponatremia (Acute) Measles (Resolved ~1949) Mumps (Resolved ~1949) Obstructive sleep apnea (Chronic) Palpitations (Acute) Shortness of breath on exertion (Acute) Snoring (Chronic) Vision disorder (Chronic) Surgical History Anesthesia (Resolved) Status post hernia repair (~1965) Family History Brother Age: 82 Detached retina Father Cancer Loud snoring Mother Hypertension Social History household members: spouse Smoking Status: Former smoker alcohol intake: current substance use type: does not use eating out: rarely or never Type(s) of exercise: bicycling Smoking Status: Former smoker alcohol intake frequency: a few times a month Substance Use Type: does not use Exam Initial Vital Signs Initial Vital Signs: Vital Signs Temperature 98.6 F 06/08/20 14:40 Pulse Rate 100 H 06/08/20 14:40 Respiratory Rate 20 06/08/20 14:40 Blood Pressure 183/90 H 06/08/20 14:40 Pulse Oximetry 98 06/08/20 14:40 Const General: cooperative, healthy appearing, comfortable and well developed Limitations: mental status not altered HENMT Head: normal to inspection and normocephalic Eyes Pupils: PERRL Resp Effort & Inspection: normal respiratory effort Auscultation: clear to auscultation bilaterally Cardio Rate: regular rate Rhythm: regular rhythm Pulses: radial pulses present GI Inspection: non-distended Palpation: soft, No firm and No tender Skin Lesions: no lesions Rashes: no rashes Neuro General: patient alert, patient awake and patient oriented x3 Cranial Nerves: CN's II-XI intact bilaterally Cognition: normal cognition Speech: speech normal Extrem General: normal to inspection and capillary refill normal Psych Appearance: grossly normal and well kempt Scores GCS Sarah coma scale eye opening: Spontaneous Sarah coma scale verbal response: Orientated Sarah coma scale motor response: Obey commands Sarah coma scale total score: 15 Course Orders Ordered: ED Orders 06/08/20 14:45 Complete Blood Count AUTO DIFF Stat Comprehensive Metabolic Panel Stat Lipase Stat Troponin & CK Cardiac Panel Stat 06/08/20 14:50 XR chest 1V Stat EKG-12 Lead Stat 06/08/20 15:27 Magnesium Stat Phosphorous Stat Discontinued Medications Al Hydrox/Mg Hydrox/Simethicone 20 ml/ Lidocaine HCl 15 ml 0 ml PO NOW ONE Stop: 06/08/20 17:34 Last Admin: 06/08/20 17:43 Dose: 1 ml Documented by: KATELYN Lorazepam (Ativan) 0.5 mg PO NOW ONE Stop: 06/08/20 17:34 Last Admin: 06/08/20 17:42 Dose: 0.5 mg Documented by: KATELYN Pantoprazole Sodium (Protonix) 40 mg IV NOW ONE Stop: 06/08/20 17:34 Last Admin: 06/08/20 17:42 Dose: 40 mg Documented by: KATELYN Vital Signs Vital signs: Vital Signs - 8 hr 06/08/20 14:40 06/08/20 15:22 06/08/20 15:27 Temperature 98.6 F Pulse Rate 100 H 93 H Pulse Rate [Orthostatic Lying] 137 H Pulse Rate [Orthostatic Sitting] 103 H Pulse Rate [Orthostatic Standing] 96 H Respiratory Rate 20 23 Blood Pressure 183/90 H Blood Pressure [Orthostatic Lying] 167/94 H Blood Pressure [Orthostatic Sitting] 179/94 H Blood Pressure [Orthostatic Standing] 173/90 H Pulse Oximetry 98 95 06/08/20 15:30 06/08/20 15:45 06/08/20 18:07 Temperature Pulse Rate 91 H 96 H 93 H Pulse Rate [Orthostatic Lying] Pulse Rate [Orthostatic Sitting] Pulse Rate [Orthostatic Standing] Respiratory Rate 21 21 16 Blood Pressure 148/77 H 156/84 H 175/97 H Blood Pressure [Orthostatic Lying] Blood Pressure [Orthostatic Sitting] Blood Pressure [Orthostatic Standing] Pulse Oximetry 95 96 95 MDM - Chest Pain Lab Data Attestation: I reviewed the patient's lab results. Result diagrams: 06/08/20 14:45 06/08/20 14:45 Labs: Lab Results 06/08/20 06/08/20 06/08/20 Range/Units 14:45 14:45 14:45 WBC 7.2 (4.5-11.0) X10^3/uL RBC 4.78 (4.0-5.2) X10^6/uL Hgb 15.3 (12.0-16.0) g/dL Hct 42.6 (36-46) % MCV 89.2 (80-100) fL MCH 32.0 (26-34) PG MCHC 35.9 (30-36) % RDW 13.2 (11.6-14.8) % Plt Count 185 (150-400) X10^3/uL Neut % (Auto) 61.1 (50-75) % Lymph % (Auto) 27.8 (25-40) % Fleming % (Auto) 10.1 (3-14) % Eos % (Auto) 0.7 L (2-4) % Baso % (Auto) 0.3 (0-2) % Neut # (Auto) 4400 (4252-9030) /uL Lymph # (Auto) 2000 (4529-6084) /uL Fleming # (Auto) 700 (0-900) /uL Eos # (Auto) 100 (0-450) /uL Baso # (Auto) 0 (0-100) /uL Sodium 136 L (137-145) mmol/L Potassium 4.1 (3.4-5.1) mmol/L Chloride 100 (98-107) mmol/L Carbon Dioxide 26 (22-32) mmol/L BUN 10 (7-17) mg/dL Creatinine 0.53 (0.52-1.04) mg/dL Estimated GFR > 60.0 (>60) mL/min BUN/Creatinine Ratio 18.9 (6-22) Glucose 131 H (80-110) mg/dL Calcium 9.8 (8.4-10.2) mg/dL Phosphorus (2.8-4.1) mg/dL Magnesium (1.6-2.3) mg/dL Total Bilirubin 0.5 (0.2-1.3) mg/dL AST 33 (14-36) IU/L ALT 34 (<35) IU/L Alkaline Phosphatase 91 (38-126) U/L Total Creatine Kinase 27 L (30-135) U/L CK-MB (CK-2) TNP CK-MB (CK-2) Rel Index TNP Troponin I < 0.012 (0.01-0.034) ng/mL Total Protein 6.6 (6.3-8.2) g/dL Albumin 4.2 (3.5-5.0) g/dL Globulin 2.4 (1.7-4.1) g/dL Albumin/Globulin Ratio 1.8 (1.0-2.8) Lipase 138 (23-300) U/L 07/16/20 Range/Units 15:27 WBC (4.5-11.0) X10^3/uL RBC (4.0-5.2) X10^6/uL Hgb (12.0-16.0) g/dL Hct (36-46) % MCV (80-100) fL MCH (26-34) PG MCHC (30-36) % RDW (11.6-14.8) % Plt Count (150-400) X10^3/uL Neut % (Auto) (50-75) % Lymph % (Auto) (25-40) % Fleming % (Auto) (3-14) % Eos % (Auto) (2-4) % Baso % (Auto) (0-2) % Neut # (Auto) (2402-7476) /uL Lymph # (Auto) (4391-0492) /uL Fleming # (Auto) (0-900) /uL Eos # (Auto) (0-450) /uL Baso # (Auto) (0-100) /uL Sodium (137-145) mmol/L Potassium (3.4-5.1) mmol/L Chloride (98-107) mmol/L Carbon Dioxide (22-32) mmol/L BUN (7-17) mg/dL Creatinine (0.52-1.04) mg/dL Estimated GFR (>60) mL/min BUN/Creatinine Ratio (6-22) Glucose (80-110) mg/dL Calcium (8.4-10.2) mg/dL Phosphorus 2.7 L (2.8-4.1) mg/dL Magnesium 1.7 (1.6-2.3) mg/dL Total Bilirubin (0.2-1.3) mg/dL AST (14-36) IU/L ALT (<35) IU/L Alkaline Phosphatase (38-126) U/L Total Creatine Kinase (30-135) U/L CK-MB (CK-2) CK-MB (CK-2) Rel Index Troponin I (0.01-0.034) ng/mL Total Protein (6.3-8.2) g/dL Albumin (3.5-5.0) g/dL Globulin (1.7-4.1) g/dL Albumin/Globulin Ratio (1.0-2.8) Lipase (23-300) U/L Imaging Data Chest x-ray: Radiologist's Impression: Betsy Cordero 79 F [address] [address] XRay Report Signed Patient: Betsy Cordero LMR#: [id number] : 2Acct:[id number] Age/Sex: 79 / FDate of Service: 06/08/20 Loc: ED Accession Number: [id number] Procedure: XR chest 1V Ordering Provider: Jim Pino D.O. PROCEDURE: XR CHEST 1V INDICATIONS: Chest pain TECHNIQUE: One view of the chest was acquired. COMPARISON: [facility], CR, XR CHEST 1V, 06/01/2020, 12:50. FINDINGS: Surgical changes and devices: None. Lungs and pleura: Lungs are clear. No pleural effusions or pneumothorax. Mediastinum: Mediastinal contours appear normal. Heart size is normal. Bones and chest wall: No suspicious bony lesions. Overlying soft tissues appear unremarkable. IMPRESSION: No acute cardiopulmonary process demonstrated radiographically. Dictated by: Casimiro Hopkins M.D. on 06/08/2020 at 15:01 Approved by: Casimiro Hopkins M.D. on 06/08/2020 at 15:02 ECG Data Attestation: I personally reviewed and interpreted this ECG as follows: Prior ECG tracings: not available for review Interpretation: Sinus tachycardia Ventricular rate of 117 Frequent PACs QTC [address] T wave changes MDM Narrative Medical decision making narrative: Patient not orthostatic. Labs unremarkable. Patient did have episodes of tachycardia into the 110's but this did not seem to be at all associated with any of her symptoms. During this time of tachycardia she had frequent PACs. Was not atrial fibrillation. Her sodium is unremarkable. Magnesium is unremarkable her left-sided chest burning was resolved with a GI cocktail. Had a fairly extensive workup during her last hospital stay. I have low suspicion for CVA. Low suspicion for TIA. Low suspicion for ACS. The ?lightheadedness? she has when she looks down is non vertigo. It was not reproducible here in the ER. Is not associated with any other symptoms per her report. I feel that the patient can be safely discharged home without further workup. I did contact her primary provider's office. Her primary provider does not have any appointments in the near future. We were able to schedule the patient with another provider in that office for tomorrow morning. Patient also states she feels much better after the Ativan. I do suspect that there is a anxiety component to her symptoms. We did discuss the importance of watching changing positions so she does not fall. Patient was given return precautions. She was given the information with regard to follow- up tomorrow. She expressed understanding and agreement. Discharge Plan Departure Patient Disposition: Home Clinical Impression: Unsteadiness, Dizziness Discharge Date/Time: 06/08/20 18:47 Instructions: How to Prevent Falls, DI for Dizziness-Nonvertigo Activity Restrictions/Additional Instructions: We were able to schedule you an appointment for tomorrow 06/09/20 at the [facility]. You have a check-in time at 0845 hours with a appointment time of 0900 hours this appointment is with Dr. Enciso. A prescription for reflux medication was transmitted to [facility]. Return to the emergency department for any new or worsening symptoms Prescriptions: New famotidine [Pepcid AC] 10 mg tablet 10 mg PO DAILY Qty: 30 RF: 0 No Action CA PANTOTHENATE/FOLIC ACID/VIT (MULTIVITAMIN) 1 tab PO Q DAY Qty: 0 RF: 0 atorvastatin 40 mg tablet 40 mg PO BEDTIME Qty: 90 RF: 3 (DME) blood-glucose meter [Blood Glucose Monitoring] Kit See Rx Instructions .ROUTE .MEDSUPPLY Qty: 1 RF: 0 (DME) Blood Glucose Test Strip See Rx Instructions .ROUTE .MEDSUPPLY Qty: 100 RF: 3 lancets [TechLITE Lancets] 28 gauge misc See Rx Instructions .ROUTE .COMPLEX Qty: 100 RF: 3 nitrofurantoin macrocrystal 100 mg capsule 100 mg PO BEDTIME RF: 0 vitamin d 25 mcg capsule 1 cap PO DAILY RF: 0 acidophilus-pectin, citrus [Probiotic Acidophilus-Pectin] 100 million cell-10 mg capsule 1 cap PO DAILY RF: 0 oxybutynin chloride 5 mg tablet 5 mg PO DAILY RF: 0 magnesium oxide 400 mg (241.3 mg magnesium) tablet 400 mg PO DAILY Qty: 14 RF: 0 famotidine 20 mg Tablet 20 mg PO DAILY RF: 0 azelastine 137 mcg (0.1 %) aerosol,spray 1 - 2 spray INTRANASAL BID PRN (Reason: SEASONAL ALLERGIES) RF: 0 fluticasone propionate [24 Hour Allergy Relief] 50 mcg/actuation spray,suspension 1 spray INTRANASAL BID RF: 0 cranberry 500 mg Capsule 4,200 mg PO DAILY RF: 0 clobetasol 0.05 % cream 1 applic topical BID RF: 0 nystatin-triamcinolone 100,000-0.1 unit/gram-% ointment 1 applic topical BID RF: 0 metformin 1,000 mg tablet 500 mg PO BID RF: 0 estradiol [Estrace] 0.01 % (0.1 mg/gram) cream 0.5 gram VAG BEDTIME RF: 0 losartan 50 mg tablet 50 mg PO DAILY 30 Days Qty: 30 RF: 0 Referrals: Elicia Storm ARNP [Primary Care Provider] -
[2020-06-08 15:09] LABS: Creatine Kinase 27 U/L (30-135); Lipase 138 U/L (23-300)
[2020-06-08 15:11] LABS: Alanine Aminotransferase 34 IU/L (<35); Albumin 4.2 g/dL (3.5-5.0); Albumin Globulin Ratio 1.8 (1.0-2.8); Alkaline Phosphatase 91 U/L (38-126); Aspartate Aminotransferase 33 IU/L (14-36); BUN Creatinine Ratio 18.9 (6-22); Bilirubin Total 0.5 mg/dL (0.2-1.3); Blood Urea Nitrogen 10 mg/dL (7-17); Calcium 9.8 mg/dL (8.4-10.2); Carbon Dioxide 26 mmol/L (22-32); Chloride 100 mmol/L (98-107); Estimated Glomerular Filt Rate > 60.0 mL/min (>60); Globulin 2.4 g/dL (1.7-4.1); Glucose 131 mg/dL (80-110); HEMOLYSIS < 15 (0-50); Potassium 4.1 mmol/L (3.4-5.1); Sodium 136 mmol/L (137-145); Total Protein 6.6 g/dL (6.3-8.2)
[2020-06-08 15:21] LABS: Troponin I < 0.012 ng/mL (0.01-0.034)
[2020-06-08 15:22] VITALS: BP 167/94; BP 173/90; BP 179/94; PULSE 103; PULSE 137; PULSE 96
[2020-06-08 15:27] VITALS: PULSE 93; RESP 23; O2SAT 95
[2020-06-08 15:30] VITALS: BP 148/77; PULSE 91; RESP 21; O2SAT 95
[2020-06-08 15:36] LABS: Magnesium 1.7 mg/dL (1.6-2.3); Phosphorous 2.7 mg/dL (2.8-4.1)
[2020-06-08 15:45] VITALS: BP 156/84; PULSE 96; RESP 21; O2SAT 96
[2020-06-08] MEDS: LORazepam 0.5 MG TABLET PO (17:42)
[2020-06-08] MEDS: PANTOPRAZOLE 40 MG VIAL IV (17:42)
[2020-06-08] MEDS: MAG HYDROX/ALUMINUM/SIMETH SUS 20 ML, LIDOCAINE VISCOUS 2% 15 ML PO (17:43)
[2020-06-08 18:07] VITALS: BP 175/97; PULSE 93; RESP 16; O2SAT 95
== END 2020-06-08 18:47 | disposition home or self-care (01) ==
PROVIDERS: Emergency Provider Emergency Medicine; PCP Nurse Practitioner
DX: R26.81 Unsteadiness on feet (principal); R42 Dizziness and giddiness; R00.0 Tachycardia, unspecified
CPT/HCPCS: 36415; 71045; 80053; 82550; 83690; 83735; 84100; 84484; 85025; 93005; 93010; 96374; 99284; 99285; C9113

== ENCOUNTER → 2020-06-19 12:06 | Outpatient (CLI) | payer MEDICARE, BC, SELFPAY ==
[2020-06-05 13:56] VITALS: BMI 25.9
[2020-06-19 13:22] LABS: BUN Creatinine Ratio 24.1 (6-22); Blood Urea Nitrogen 14 mg/dL (7-17); Calcium 9.8 mg/dL (8.4-10.2); Carbon Dioxide 29 mmol/L (22-32); Chloride 97 mmol/L (98-107); Estimated Glomerular Filt Rate > 60.0 mL/min (>60); Glucose 102 mg/dL (80-110); HEMOLYSIS 21 (0-50); Magnesium 2.2 mg/dL (1.6-2.3); Potassium 4.5 mmol/L (3.4-5.1); Sodium 134 mmol/L (137-145)
== END ==
PROVIDERS: PCP Nurse Practitioner; Referring Provider Nurse Practitioner; Visit Provider Nurse Practitioner
DX: E83.42 Hypomagnesemia (principal); E87.1 Hypo-osmolality and hyponatremia
CPT/HCPCS: 36415; 80048; 83735

== ENCOUNTER → 2020-06-22 10:27 | Outpatient (CLI) | payer MEDICARE, BC, SELFPAY ==
[2020-06-05 13:56] VITALS: BMI 25.9
--- NOTE | 2020-06-22 10:28 | DI.US.S_ITS ---
PROCEDURE: US CAROTID DOPPLER BI INDICATIONS: SYNCOPE TECHNIQUE: Color and pulse Doppler interrogation was performed of both carotid systems, with image documentation and velocity measurements. COMPARISON: None. FINDINGS: Stenosis calculations are based on SRU (Society of Radiologists in Ultrasound) criteria. Right side: Brachial blood pressure: 136/86 mm Hg. Common carotid artery peak systolic velocity: 68 cm/sec. Internal carotid artery peak systolic velocity: 61 cm/sec. Internal carotid artery end diastolic velocity: 20 cm/sec. External carotid artery peak systolic velocity: 76 cm/sec. ICA/CCA peak systolic ratio: 0.9 . Groves scale imaging description: Mild scattered plaque. Percent internal carotid artery stenosis: Less than 50% . Vertebral artery: Flow direction is antegrade. Left side: Brachial blood pressure: 129/84 mm Hg. Common carotid artery peak systolic velocity: 67 cm/sec. Internal carotid artery peak systolic velocity: 65 cm/sec. Internal carotid artery end diastolic velocity: 20 cm/sec. External carotid artery peak systolic velocity: 108 cm/sec. ICA/CCA peak systolic ratio: 1.0 . Groves scale imaging description: Mild scattered plaque. Percent internal carotid artery stenosis: Less than 50% . Vertebral artery: Flow direction is antegrade. IMPRESSION: Less than 50% bilateral internal carotid artery stenosis. Dictated by: Mike Aldrich [facility] Interpreted: Judy Mcdonald MD on 06/22/2020 at 13:40 Approved by: Hilario Crum M.D. on 06/23/2020 at 12:21
== END ==
PROVIDERS: PCP Nurse Practitioner; Referring Provider Family Medicine; Visit Provider Family Medicine
DX: R55 Syncope and collapse (principal); I65.23 Occlusion and stenosis of bilateral carotid arteries
CPT/HCPCS: 93880

== ENCOUNTER → 2020-06-26 13:01 | Outpatient (CLI) | payer MEDICARE, BC, SELFPAY ==
[2020-06-05 13:56] VITALS: BMI 25.9
--- NOTE | 2020-07-14 16:23 | P.HOLT.S_ITS ---
[employer]ic Report Referral & Results Date Patient Seen: 06/26/20 Requesting provider: Elicia Storm Indication: Palpitations Duration of monitoring (days): 7 Diary information: There were 52 patient triggered events and 3 patient diary entries. These events (within 45 seconds) were associated with sinus rhythm, PACs, and SVT Data: Minimum heart rate identified was 59 beats per minute at 22:58 on 07/02/2020 Maximum sinus heart rate was 187 beats per minute at 08:07 on 07/01/2020 Maximum overall heart rate was 222 beats per minute at 16:22 on 06/29/2020 during a 5 beat run of ventricular tachycardia Patient had 3.3% of identified beats as supraventricular ectopic in origin and less than 1% of identified beats as ventricular ectopic in origin Patient had the single run of ventricular tachycardia as above There 27 runs of SVT with the fastest being 184 beats per minute and the longest being 10.8 seconds at a rate of 161 beats per minute Impression: Patient with primarily supraventricular ectopy as above including runs of SVT. 1 run of ventricular tachycardia as above Clinical correlation suggested
== END ==
PROVIDERS: Family Provider Nurse Practitioner; PCP Nurse Practitioner; Referring Provider Nurse Practitioner; Visit Provider Nurse Practitioner
DX: R00.2 Palpitations (principal)
CPT/HCPCS: 0296T; 0298T

== ENCOUNTER 2020-07-01 08:15 | Emergency (ER) | payer MEDICARE, BC, SELFPAY ==
[2020-06-05 13:56] VITALS: BMI 25.9
[2020-07-01] VITALS (16 sets, daily range): BP systolic 135–189; BP diastolic 67–97; PULSE 77–110; RESP 12–19; TEMP 36.7; O2SAT 96–99; BMI 24.0
--- NOTE | 2020-07-01 08:32 | ED_ITS ---
HPI - Fall General Chief Complaint: Dizziness Stated Complaint: Fell and hit head at resp clinic Time Seen by Provider: 07/01/20 08:31 Source: patient Mode of arrival: Ambulatory Limitations: no limitations History of Present Illness HPI Narrative: The patient was referred here from the walk-in clinic. She had vague chest discomfort last night, she will dizziness this morning went to the floor. She denies LOC. She denies any significant blow to the head. She has no dizziness now. She has no visual changes, she has no focal numbness or weakness. She denies confusion. She has previously seen for chest discomfort and was diagnosed with GERD. She is currently on medications for GERD. She has no history of CAD or HI. She has a history ofdiabetes mellitus, hypertension, hyperlipidemia, metabolic syndrome, recent oral thrush, obstructive sleep apnea, hypo magnesium media, hyponatremia. She has a history of disease and a history of syncope. She has undergone cardiac monitoring previously, revealing only PVCs. She is currently wearing a ZIO monitor. she has recently started on treatment for GERD. She was feeling no palpitations with the chest discomfort last night and the dizziness this morning. She denies recent illness. She has had no URI symptoms, no cough, no sore throat or dyspnea. She has had no fever. She has no ongoing symptoms, she has no history of CVA. Related Data Home Medications Medication Instructions Recorded Confirmed CA PANTOTHENATE/FOLIC ACID/VIT 1 tab PO Q DAY #0 09/13/11 06/26/20 (MULTIVITAMIN) acidophilus 100 million 1 cap PO DAILY cap 05/26/19 06/26/20 cell-pectin, citrus 10 mg capsule nitrofurantoin macrocrystal 100 mg 100 mg PO BEDTIME 05/26/19 06/26/20 capsule vitamin d 1 cap PO DAILY 05/26/19 06/26/20 oxybutynin chloride 5 mg tablet 5 mg PO DAILY 04/14/20 06/26/20 azelastine 1 - 2 spray INTRANASAL BID PRN 06/05/20 06/26/20 clobetasol 1 applic TOPICAL BID 06/05/20 06/26/20 cranberry 4,200 mg PO DAILY 06/05/20 06/26/20 estradiol [Estrace] 0.5 gram VAG BEDTIME 06/05/20 06/26/20 fluticasone propionate [24 Hour 1 spray INTRANASAL BID 06/05/20 06/26/20 Allergy Relief] nystatin-triamcinolone 1 applic TOPICAL BID 06/05/20 06/26/20 losartan 50 mg tablet 50 mg PO BID tab 06/26/20 06/26/20 Previous Rx's Medication Instructions Recorded atorvastatin 40 mg tablet 40 mg PO BEDTIME #90 tab 01/03/20 blood-glucose meter #1 each 01/10/20 blood sugar diagnostic #100 each 02/18/20 metformin 750 mg tablet,extended 1,500 mg PO QPM #90 tab 06/15/20 release 24 hr lancets 28 gauge See Rx Instructions .ROUTE 06/19/20 .COMPLEX #100 each Lido/Nystatin/M-Dryl/Rulox See Rx Instructions PO .COMPLEX 06/20/20 #200 ml omeprazole 20 mg capsule,delayed 20 mg PO BID #180 cap 06/26/20 release Allergies Allergy/AdvReac Type Severity Reaction Status Date / Time Sulfa (Sulfonamide Allergy Intermediate HIVES Verified 06/26/20 14:05 Antibiotics) lisinopril Allergy Mild COUGH Verified 06/26/20 14:05 Review of Systems Constitutional Constitutional: Denies chills, Denies fever(s), Denies frequent falls and Denies weakness Eyes Eyes: Denies change in vision, Denies eye discharge and Denies irritation ENT Ears, Nose, Mouth, and Throat: Denies change in voice, Denies dizziness, Denies neck pain and Denies sore throat Cardiovascular Cardiovascular: Denies chest pain, Denies irregular heart rhythm, Denies lightheadedness and Denies dyspnea Respiratory Respiratory: Denies cough, Denies dyspnea and Denies wheezing Gastrointestinal Gastrointestinal: Denies abdominal pain, Denies change in bowel habits, Reports diarrhea, Denies nausea and Denies vomiting Genitourinary Genitourinary: Denies dysuria Genitourinary: Denies dysuria Musculoskeletal Musculoskeletal: Denies back pain, Denies neck pain and Denies numbness Integumentary/Breasts Skin/Breast: Denies pruritus, Denies erythema and Denies rash Neurologic Neurologic: Denies confusion, Denies dizziness, Denies frequent falls, Denies numbness and Denies weakness Psychiatric Psychiatric: Denies confusion Allergic/Immunologic Allergic/Immunologic: Denies wheezing Patient History Medical History Acid reflux (Acute) Chicken pox (Resolved ~1950) Diarrhea (Acute) Dizziness (Acute) Esophagitis (Acute) Frequent UTI (Chronic) Hearing loss (Chronic) Hyperlipidemia (Chronic) Hypertension (Chronic) Hypomagnesemia (Acute) Hyponatremia (Acute) Measles (Resolved ~1950) Mumps (Resolved ~1950) Obstructive sleep apnea (Chronic) Palpitations (Acute) Shortness of breath on exertion (Acute) Snoring (Chronic) Vision disorder (Chronic) Surgical History Anesthesia (Resolved) Status post hernia repair (~1964) Family History Brother Age: 82 Detached retina Father Cancer Loud snoring Mother Hypertension Social History household members: spouse Smoking Status: Former smoker alcohol intake: current substance use type: does not use eating out: rarely or never Type(s) of exercise: bicycling Smoking Status: Former smoker alcohol intake frequency: a few times a month Substance Use Type: does not use Exam Initial Vital Signs Initial Vital Signs: Vital Signs Temperature 98.0 F 07/01/20 08:25 Pulse Rate 110 H 07/01/20 08:25 Respiratory Rate 19 07/01/20 08:25 Blood Pressure 189/97 H 07/01/20 08:25 Pulse Oximetry 96 07/01/20 08:25 Course Course Course Narrative: The patient has been asymptomatic since arrival. She is currently monitored for arrhythmia. She has no history of CAD. Cardiac monitoring here as well as cardiac workup was benign. The dizziness is occur before, she has a history syncope. Her head CT is benign. She also complains of diarrhea, this has been an issue before. She has received IV hydration. She is asymptomatic at discharge. She is advised follow-up with her doctor for ongoing care. Orders Ordered: ED Orders 07/01/20 08:28 EKG-12 Lead Routine 07/01/20 08:31 Complete Blood Count AUTO DIFF Stat Comprehensive Metabolic Panel Stat Lactate (Lactic Acid) Stat Troponin & CK Cardiac Panel Stat 07/01/20 08:41 CT head/brain wo con Stat 08/08/20 10:17 Urine Microscopic Stat Discontinued Medications Sodium Chloride (Normal Saline 0.9%) 1,000 mls @ 200 mls/hr IV CONT CUBA Last Infusion: 07/01/20 12:44 Dose: 0 mls/hr Documented by: Infusion: 07/01/20 12:23 Dose: 999 mls/hr Documented by: Admin: 07/01/20 09:44 Dose: 200 mls/hr Documented by: MARIO Vital Signs Vital signs: Vital Signs - 8 hr 07/01/20 08:25 07/01/20 09:49 07/01/20 09:51 Temperature 98.0 F Pulse Rate 110 H 86 84 Respiratory Rate 19 18 16 Blood Pressure 189/97 H 162/82 H Pulse Oximetry 96 97 97 07/01/20 10:00 07/01/20 10:30 07/01/20 11:00 Temperature Pulse Rate 83 80 77 Respiratory Rate 18 14 17 Blood Pressure 154/83 H 135/67 146/71 H Pulse Oximetry 96 98 96 07/01/20 11:30 07/01/20 12:00 07/01/20 12:14 Temperature Pulse Rate 80 86 85 Respiratory Rate 12 12 17 Blood Pressure 139/70 178/81 H Pulse Oximetry 97 98 98 07/01/20 12:29 07/01/20 12:30 07/01/20 13:30 Temperature Pulse Rate 84 Respiratory Rate 16 Blood Pressure 159/75 H 149/70 H Pulse Oximetry 98 07/01/20 14:00 07/01/20 14:09 07/01/20 14:11 Temperature Pulse Rate 81 81 92 H Respiratory Rate 14 16 19 Blood Pressure 158/72 H 152/81 H 162/92 H Pulse Oximetry 98 99 98 07/01/20 14:13 Temperature Pulse Rate 102 H Respiratory Rate 16 Blood Pressure 161/82 H Pulse Oximetry 99 MDM - Fall Lab Data Result diagrams: 07/01/20 08:31 07/01/20 08:31 Labs: Lab Results 07/01/20 07/01/20 07/01/20 Range/Units 08:31 08:31 08:31 WBC 5.3 (4.5-11.0) X10^3/uL RBC 5.14 (4.0-5.2) X10^6/uL Hgb 16.0 (12.0-16.0) g/dL Hct 46.3 H (36-46) % MCV 90.1 (80-100) fL MCH 31.1 (26-34) PG MCHC 34.5 (30-36) % RDW 13.5 (11.6-14.8) % Plt Count 189 (150-400) X10^3/uL Neut % (Auto) 62.0 (50-75) % Lymph % (Auto) 26.8 (25-40) % [place] % (Auto) 10.8 (3-14) % Eos % (Auto) 0.2 L (2-4) % Baso % (Auto) 0.2 (0-2) % Neut # (Auto) 3300 (7839-8421) /uL Lymph # (Auto) 1400 (8384-1695) /uL [place] # (Auto) 600 (0-900) /uL Eos # (Auto) 0 (0-450) /uL Baso # (Auto) 0 (0-100) /uL Sodium 135 L (137-145) mmol/L Potassium 3.8 (3.4-5.1) mmol/L Chloride 97 L (98-107) mmol/L Carbon Dioxide 27 (22-32) mmol/L BUN 6 L (7-17) mg/dL Creatinine 0.55 (0.52-1.04) mg/dL Estimated GFR > 60.0 (>60) mL/min BUN/Creatinine Ratio 10.9 (6-22) Glucose 152 H (80-110) mg/dL Lactate 1.3 (0.7-2.1) mmol/L Calcium 10.4 H (8.4-10.2) mg/dL Total Bilirubin 0.7 (0.2-1.3) mg/dL AST 34 (14-36) IU/L ALT 33 (<35) IU/L Alkaline Phosphatase 87 (38-126) U/L Total Creatine Kinase (30-135) U/L CK-MB (CK-2) CK-MB (CK-2) Rel Index Troponin I (0.01-0.034) ng/mL Total Protein 7.4 (6.3-8.2) g/dL Albumin 4.6 (3.5-5.0) g/dL Globulin 2.8 (1.7-4.1) g/dL Albumin/Globulin Ratio 1.6 (1.0-2.8) Urine RBC (0-5/HPF) Urine WBC (0-5/HPF) Ur Squamous Epith Cells (0-5/HPF) Urine Bacteria (None) Ur Culture Indicated? 07/01/20 07/01/20 Range/Units 08:31 10:17 WBC (4.5-11.0) X10^3/uL RBC (4.0-5.2) X10^6/uL Hgb (12.0-16.0) g/dL Hct (36-46) % MCV (80-100) fL MCH (26-34) PG MCHC (30-36) % RDW (11.6-14.8) % Plt Count (150-400) X10^3/uL Neut % (Auto) (50-75) % Lymph % (Auto) (25-40) % [place] % (Auto) (3-14) % Eos % (Auto) (2-4) % Baso % (Auto) (0-2) % Neut # (Auto) (5605-5630) /uL Lymph # (Auto) (4908-6677) /uL [place] # (Auto) (0-900) /uL Eos # (Auto) (0-450) /uL Baso # (Auto) (0-100) /uL Sodium (137-145) mmol/L Potassium (3.4-5.1) mmol/L Chloride (98-107) mmol/L Carbon Dioxide (22-32) mmol/L BUN (7-17) mg/dL Creatinine (0.52-1.04) mg/dL Estimated GFR (>60) mL/min BUN/Creatinine Ratio (6-22) Glucose (80-110) mg/dL Lactate (0.7-2.1) mmol/L Calcium (8.4-10.2) mg/dL Total Bilirubin (0.2-1.3) mg/dL AST (14-36) IU/L ALT (<35) IU/L Alkaline Phosphatase (38-126) U/L Total Creatine Kinase 20 L (30-135) U/L CK-MB (CK-2) TNP CK-MB (CK-2) Rel Index TNP Troponin I < 0.012 (0.01-0.034) ng/mL Total Protein (6.3-8.2) g/dL Albumin (3.5-5.0) g/dL Globulin (1.7-4.1) g/dL Albumin/Globulin Ratio (1.0-2.8) Urine RBC None seen (0-5/HPF) Urine WBC None seen (0-5/HPF) Ur Squamous Epith Cells 5-10 /hpf H (0-5/HPF) Urine Bacteria None seen (None) Ur Culture Indicated? Cult not indicated Urine Dip Bedside Urine Glucose Negative Bedside Urine Bilirubin - Negative Bedside Urine Ketone ++ 40 Urine Specific Nye 1.010 Bedside Urine Occult Blood - Negative Bedside Urine pH 6.0 Bedside Urine Protein - Negative Bedside Urine Urobilinogen - Negative Bedside Urine Leukocytes +/- [address] scan - head: Radiologist's Impression: 52 Juan Sierra MD Find Patient Imaging - Betsy Cordero 79 F 1940 ACTIVITY DATE EXAM STATUS AUTHOR 07/01/20 08:41 [place] [address] CT Scan Report Signed Patient: Betsy Cordero LMR#: [id number] : 2Acct:[id number] Age/Sex: 79 / FDate of Service: 07/01/20 Loc: ED Accession Number: [id number] Procedure: CT head/brain wo con Ordering Provider: Juan Sierra MD PROCEDURE: CT HEAD/BRAIN WO CON INDICATIONS: Fall. Confusion. TECHNIQUE: Noncontrast 4.5 mm thick angled axial sections acquired from the foramen magnum to the vertex, with coronal and sagittal reformats. For radiation dose reduction, the following was used: automated exposure control, adjustment of mA and/or kV according to patient size. COMPARISON: [facility], CT, CT HEAD/BRAIN WO CON, 06/02/2020, 7:52. FINDINGS: Image quality: Excellent. CSF spaces: Basal cisterns are patent. No extra-axial fluid collections. The ventricles are symmetric in size and shape. Brain: No intracranial bleeds or masses. There is cerebral volume loss for age, with resultant ventricular and sulcal prominence. There are periventricular and deep white matter chronic small vessel ischemic changes. There is intracranial internal carotid artery atherosclerosis. Skull and face: Calvarium and visualized facial bones appear intact, without suspicious lesions. Sinuses: Visualized sinuses and mastoids are clear. IMPRESSION: 1. No CT evidence of acute intracranial trauma. 2. Age-appropriate exam. Dictated by: Cristin Muhammad M.D. on 07/01/2020 at 8:54 Approved by: Cristin Muhammad M.D. on 07/01/2020 at 8:57 ECG Data Attestation: I personally reviewed and interpreted this ECG as follows: (Normal sinus rhythm rate 98 beats per minute. Occasional PVC. No voltage in the precordial leads. Probable old anterior HI. No acute ST T wave changes. No ectopy.) Discharge Plan Departure Patient Disposition: Home Clinical Impression: Dizziness Diarrhea Qualifiers: Diarrhea type: unspecified type Qualified Code(s): R19.7 - Diarrhea, unspecified Discharge Date/Time: 07/01/20 14:41 Instructions: DI for Dizziness-Nonvertigo Activity Restrictions/Additional Instructions: You have no findings of stroke, cardiac problems, or infection. You have received IV hydration 2 year diarrhea. I reviewed her medical records, follow through with the cardiac monitoring as planned, and arrange follow-up with your primary care doctor the next several days. Return the ER if symptoms escalate. Prescriptions: No Action CA PANTOTHENATE/FOLIC ACID/VIT (MULTIVITAMIN) 1 tab PO Q DAY Qty: 0 RF: 0 atorvastatin 40 mg tablet 40 mg PO BEDTIME Qty: 90 RF: 3 (DME) blood-glucose meter [Blood Glucose Monitoring] Kit See Rx Instructions .ROUTE .MEDSUPPLY Qty: 1 RF: 0 (DME) Blood Glucose Test Strip See Rx Instructions .ROUTE .MEDSUPPLY Qty: 100 RF: 3 Lido/Nystatin/M-Dryl/Rulox See Rx Instructions PO .COMPLEX Qty: 200 RF: 1 nitrofurantoin macrocrystal 100 mg capsule 100 mg PO BEDTIME RF: 0 vitamin d 25 mcg capsule 1 cap PO DAILY RF: 0 acidophilus-pectin, citrus [Probiotic Acidophilus-Pectin] 100 million cell-10 mg capsule 1 cap PO DAILY RF: 0 oxybutynin chloride 5 mg tablet 5 mg PO DAILY RF: 0 lancets [TechLITE Lancets] 28 gauge misc See Rx Instructions .ROUTE .COMPLEX Qty: 100 RF: 3 metformin 750 mg tablet extended release 24 hr 1,500 mg PO QPM Qty: 90 RF: 3 losartan 50 mg tablet 50 mg PO BID RF: 0 omeprazole 20 mg capsule,delayed release(DR/EC) 20 mg PO BID Qty: 180 RF: 3 azelastine 137 mcg (0.1 %) aerosol,spray 1 - 2 spray INTRANASAL BID PRN (Reason: SEASONAL ALLERGIES) RF: 0 fluticasone propionate [24 Hour Allergy Relief] 50 mcg/actuation spray,suspension 1 spray INTRANASAL BID RF: 0 cranberry 500 mg Capsule 4,200 mg PO DAILY RF: 0 clobetasol 0.05 % cream 1 applic topical BID RF: 0 nystatin-triamcinolone 100,000-0.1 unit/gram-% ointment 1 applic topical BID RF: 0 estradiol [Estrace] 0.01 % (0.1 mg/gram) cream 0.5 gram VAG BEDTIME RF: 0 Referrals: Elicia Storm ARNP [Primary Care Provider] -
--- NOTE | 2020-07-01 08:41 | DI.CT.S_ITS ---
PROCEDURE: CT HEAD/BRAIN WO CON INDICATIONS: Fall. Confusion. TECHNIQUE: Noncontrast 4.5 mm thick angled axial sections acquired from the foramen magnum to the vertex, with coronal and sagittal reformats. For radiation dose reduction, the following was used: automated exposure control, adjustment of mA and/or kV according to patient size. COMPARISON: [facility], CT, CT HEAD/BRAIN WO CON, 06/02/2020, 7:52. FINDINGS: Image quality: Excellent. CSF spaces: Basal cisterns are patent. No extra-axial fluid collections. The ventricles are symmetric in size and shape. Brain: No intracranial bleeds or masses. There is cerebral volume loss for age, with resultant ventricular and sulcal prominence. There are periventricular and deep white matter chronic small vessel ischemic changes. There is intracranial internal carotid artery atherosclerosis. Skull and face: Calvarium and visualized facial bones appear intact, without suspicious lesions. Sinuses: Visualized sinuses and mastoids are clear. IMPRESSION: 1. No CT evidence of acute intracranial trauma. 2. Age-appropriate exam. Dictated by: Cristin Muhammad M.D. on 07/01/2020 at 8:54 Approved by: Cristin Muhammad M.D. on 07/01/2020 at 8:57
[2020-07-01 09:00] LABS: Add Manual Diff / Slide Review NO; Basophils Absolute Auto 0 /uL (0-100); Basophils Percent Auto 0.2 % (0-2); Eosinophils Absolute Auto 0 /uL (0-450); Eosinophils Percent Auto 0.2 % (2-4); Hematocrit 46.3 % (36-46); Lymphocytes Absolute Auto 1400 /uL (1100-4500); Lymphocytes Percent Auto 26.8 % (25-40); Mean Corpuscular HGB Conc 34.5 % (30-36); Mean Corpuscular Hemoglobin 31.1 PG (26-34); Mean Corpuscular Volume 90.1 fL (80-100); Monocytes Absolute Auto 600 /uL (0-900); Monocytes Percent Auto 10.8 % (3-14); Neutrophils Absolute Auto 3300 /uL (1500-7000); Platelet Count 189 X10^3/uL (150-400); Red Blood Cell Count 5.14 X10^6/uL (4.0-5.2); Red Cell Distribution Width 13.5 % (11.6-14.8); White Blood Cell Count 5.3 X10^3/uL (4.5-11.0)
[2020-07-01 09:04] LABS: Lactate (Lactic Acid) 1.3 mmol/L (0.7-2.1)
[2020-07-01 09:05] LABS: Alanine Aminotransferase 33 IU/L (<35); Albumin 4.6 g/dL (3.5-5.0); Albumin Globulin Ratio 1.6 (1.0-2.8); Alkaline Phosphatase 87 U/L (38-126); Aspartate Aminotransferase 34 IU/L (14-36); BUN Creatinine Ratio 10.9 (6-22); Bilirubin Total 0.7 mg/dL (0.2-1.3); Blood Urea Nitrogen 6 mg/dL (7-17); Calcium 10.4 mg/dL (8.4-10.2); Carbon Dioxide 27 mmol/L (22-32); Chloride 97 mmol/L (98-107); Estimated Glomerular Filt Rate > 60.0 mL/min (>60); Globulin 2.8 g/dL (1.7-4.1); Glucose 152 mg/dL (80-110); HEMOLYSIS < 15 (0-50); Potassium 3.8 mmol/L (3.4-5.1); Sodium 135 mmol/L (137-145); Total Protein 7.4 g/dL (6.3-8.2)
[2020-07-01] MEDS: SODIUM CHLORIDE 0.9% 1,000 ML 200 ML IV (09:44)
--- NOTE | 2020-07-01 09:52 | PC.NURSE ---
Patient comes to ED by wheelchair from walk in clinic. Per provider at [facility] patient fainted while checking in. assisted patient to floor but did hit her head upon ground. Patient reports chest discomfort starting last night, which she believed to be acid reflux. Denies chest pain but states feels uncomfortable like anxiety. Patient states she has had similar episodes in May which also included syncope. Patient denies SOB. EKG completed.
[2020-07-01 10:34] LABS: Bacteria Urine None Seen; RBC Urine None Seen (0-5/HPF); WBC Urine None Seen (0-5/HPF)
[2020-07-01 10:52] LABS: Culture Indicated Urine Cult Not Indicated; Squamous Epithelial Cell Urine 5-10 /HPF (0-5/HPF)
--- NOTE | 2020-07-01 12:24 | PC.NURSE ---
Per Dr Sierra, wide open fluids then orthostats
[2020-07-01 12:42] LABS: Creatine Kinase 20 U/L (30-135)
[2020-07-01 12:57] LABS: Troponin I < 0.012 ng/mL (0.01-0.034)
== END 2020-07-01 14:41 | disposition home or self-care (01) ==
PROVIDERS: Emergency Provider Emergency Medicine; Family Provider Nurse Practitioner; PCP Nurse Practitioner
DX: R42 Dizziness and giddiness (principal); R07.9 Chest pain, unspecified; R19.7 Diarrhea, unspecified; K21.9 Gastro-esophageal reflux disease without esophagitis; W19.XXXA Unspecified fall, initial encounter
CPT/HCPCS: 36415; 70450; 80053; 81003; 81015; 82550; 83605; 84484; 85025; 93005; 96360; 96361; 99284

== ENCOUNTER 2020-07-07 02:08 | Emergency (ER) | payer MEDICARE, BC, SELFPAY ==
[2020-06-05 13:56] VITALS: BMI 25.9
[2020-07-07] VITALS (7 sets, daily range): BP systolic 151–173; BP diastolic 73–88; PULSE 83–121; RESP 16; TEMP 36.7; O2SAT 94–99; BMI 25.0
[2020-07-07 02:30] LABS: Prothrombin Time 11.8 SECONDS (10.1-12.7)
--- NOTE | 2020-07-07 02:30 | ED_ITS ---
HPI - Syncope General Chief Complaint: Syncope Stated Complaint: Sycope Time Seen by Provider: 07/07/20 02:10 Source: patient and EMS Mode of arrival: EMS Limitations: no limitations History of Present Illness HPI narrative: 71-year-old female former smoker with history of multiple episodes (recently) of syncope, electrolyte abnormalities and sleep apnea presents by EMS with a chief complaint of another syncopal episode. She has been having episodes of loose stools had gone to the bathroom tonight and again it was watery but no blood. She ambulated to her bedroom and sat on the stool the end of the bed and then felt progressively dizzy and lightheaded and then passed out and fell on the floor. She denies any injury as a consequence. She did feel the prodromal symptoms as stated. She denies any chest pain or shortness of breath. She has seen a neurologist as recently as yesterday who states that to be a neurologic problem. Shows less than 50% bilateral internal carotid artery stenosis. She now is anxious but denies any other symptoms such as dizziness, weakness, lightheadedness, palpitations or chest pain. She has now had 6 syncopal episodes since May 31 and though MD complaint: loss of consciousness Onset (ago): minute(s) -: minutes(s) Prodromal symptoms: lightheaded Witnessed: no Context: at rest Injuries sustained associated with event: none Current symptoms: none Treatments prior to arrival: none Related Data Home Medications Medication Instructions Recorded Confirmed CA PANTOTHENATE/FOLIC ACID/VIT 1 tab PO Q DAY #0 09/13/11 06/26/20 (MULTIVITAMIN) acidophilus 100 million 1 cap PO DAILY cap 05/26/19 06/26/20 cell-pectin, citrus 10 mg capsule vitamin d 1 cap PO DAILY 05/26/19 06/26/20 oxybutynin chloride 5 mg tablet 5 mg PO DAILY 04/14/20 06/26/20 azelastine 1 - 2 spray INTRANASAL BID PRN 06/05/20 06/26/20 clobetasol 1 applic TOPICAL BID 06/05/20 06/26/20 cranberry 4,200 mg PO DAILY 06/05/20 06/26/20 estradiol [Estrace] 0.5 gram VAG BEDTIME 06/05/20 06/26/20 fluticasone propionate [24 Hour 1 spray INTRANASAL BID 06/05/20 06/26/20 Allergy Relief] nystatin-triamcinolone 1 applic TOPICAL BID 06/05/20 06/26/20 Previous Rx's Medication Instructions Recorded atorvastatin 40 mg tablet 40 mg PO BEDTIME #90 tab 01/03/20 blood-glucose meter #1 each 01/10/20 blood sugar diagnostic #100 each 02/18/20 metformin 750 mg tablet,extended 1,500 mg PO QPM #90 tab 06/15/20 release 24 hr lancets 28 gauge See Rx Instructions .ROUTE 06/19/20 .COMPLEX #100 each Lido/Nystatin/M-Dryl/Rulox See Rx Instructions PO .COMPLEX 06/20/20 #200 ml omeprazole 20 mg capsule,delayed 20 mg PO BID #180 cap 06/26/20 release amlodipine 10 mg tablet 10 mg PO DAILY #30 tab 07/07/20 diphenoxylate-atropine 2.5 1 tab PO BID PRN #30 tab 07/07/20 mg-0.025 mg tablet Allergies Allergy/AdvReac Type Severity Reaction Status Date / Time Sulfa (Sulfonamide Allergy Intermediate HIVES Verified 06/26/20 14:05 Antibiotics) lisinopril Allergy Mild COUGH Verified 06/26/20 14:05 ARB-Angiotensin Receptor AdvReac Severe syncope, Verified 07/07/20 10:13 Antagonist diarrhea Review of Systems Constitutional Constitutional: Denies chills, Denies fatigue, Denies fever(s), Denies frequent falls, Denies lethargy and Denies weakness Eyes Eyes: Denies change in vision, Denies eye discharge, Denies irritation and Denies loss of vision ENT Ears, Nose, Mouth, and Throat: Denies change in voice, Denies dizziness, Denies neck pain, Denies sore throat and Denies throat swelling Cardiovascular Cardiovascular: Denies chest pain, Denies irregular heart rhythm, Reports lightheadedness, Denies palpitations, Denies dyspnea, Denies dyspnea on exertion and Denies orthopnea Respiratory Respiratory: Denies cough, Denies dyspnea, Denies dyspnea on exertion and Denies wheezing Gastrointestinal Gastrointestinal: Denies abdominal pain, Denies change in bowel habits, Reports diarrhea, Denies nausea and Denies vomiting Musculoskeletal Musculoskeletal: Denies neck pain and Denies numbness Integumentary/Breasts Skin/Breast: Denies pruritus, Denies erythema, Denies rash and Denies wounds Neurologic Neurologic: Denies behavioral changes, Denies confusion, Denies dizziness, Denies frequent falls, Denies loss of vision, Denies numbness and Denies weakness Psychiatric Psychiatric: Denies anxiety, Denies behavioral changes, Denies confusion, Denies depression, Denies homicidal ideation and Denies suicidal ideation Endocrine Endocrine: Denies fatigue, Denies flushing and Denies palpitations Hematologic/Lymphatic Hematologic/Lymphatic: Denies easy bruising Allergic/Immunologic Allergic/Immunologic: Denies urticaria, Denies throat swelling and Denies whee zing Patient History Medical History (Updated 07/07/20 @ 10:18 by RONA Moore) Abnormal mammogram of right breast (Inactive) Acid reflux (Inactive) Angular cheilitis (Inactive) Chicken pox (Resolved ~1949) Chronic vaginitis (04/01/16) Diarrhea (Inactive) Dizziness (Inactive) Edema of foot (Inactive 11/01/15) Esophagitis (Inactive) Frequent UTI (Chronic) Hearing loss Hearing loss (Chronic) Hyperlipidemia (Chronic) Hypertension (Chronic) Hypomagnesemia (Inactive) Hyponatremia (Inactive) Lichen sclerosus of female genitalia (Inactive) Measles (Resolved ~1950) Mumps (Resolved ~1949) Obstructive sleep apnea (Chronic) Onychomycosis (Inactive) Oral thrush (Inactive) Osteoarthritis of left hip (04/01/16) Palpitations (Acute) Shortness of breath on exertion (Acute) Snoring (Inactive) Syncope (Inactive) Syncope and collapse (Acute) Vision disorder (Chronic) Vulvitis (Inactive) Surgical History Anesthesia (Resolved) Status post hernia repair (~1964) Family History Brother Age: 82 Detached retina Father Cancer Loud snoring Mother Hypertension Social History household members: spouse Smoking Status: Former smoker alcohol intake: current substance use type: does not use eating out: rarely or never Type(s) of exercise: bicycling Smoking Status: Former smoker alcohol intake frequency: a few times a month Substance Use Type: does not use Exam Narrative Exam Narrative: GENERAL: [76] year old patient appears stated age. Well- nourished, well-developed patient, in mild distress. HEAD: Atraumatic. Normocephalic. EYES: Pupils equal round and reactive. Extraocular motions intact. No scleral icterus. No injection or drainage. ENT: Nose without bleeding, purulent drainage. Throat without erythema, tonsillar hypertrophy or exudate. Airway patent. NECK: Trachea midline. Non tender CARDIOVASCULAR: Regular rate and rhythm without murmurs, gallops, or rubs. RESPIRATORY: Clear to auscultation. Breath sounds equal bilaterally. No wheezes, rales, or rhonchi. GASTROINTESTINAL: Abdomen soft, non-tender, nondistended. EXTREMITIES: No edema or joint tenderness. BACK: Nontender without deformity or crepitance. No flank tenderness. NEURO: AOx3. SKIN: No rash or erythema of visible areas Initial Vital Signs Initial Vital Signs: Vital Signs Temperature 98.1 F 07/07/20 02:10 Pulse Rate 90 07/07/20 02:10 Respiratory Rate 16 07/07/20 02:10 Blood Pressure 159/81 H 07/07/20 02:10 Pulse Oximetry 97 07/07/20 02:10 Course Course Course Narrative: initially a call placed to Dr. Martinez to review EKG, but after a bit of a delay we paged Dr. Escobedo ([place]). Both have been able to review today's EKG and there is nothing of any particular interest, both recommend outpatient followup. Her PCP has been very involved in her care and she has been having syncopal episodes and dizziness off and on for many weeks. She has prior admissions for this with very similar presentation. She is having no symptoms now. I did discuss with seed cone picker provider with her group who also agrees that given the circumstances she is appropriate for outpatient follow up. She has an appointment with her PCP later this morning at 0930. Call placed to hospitalist to request consultation regarding disposition. Orders Ordered: Discontinued Medications Sodium Chloride (Normal Saline 0.9%) 1,000 mls @ 150 mls/hr IV CONT CUBA Last Infusion: 07/07/20 06:34 Dose: 0 mls/hr Documented by: Infusion: 07/07/20 05:27 Dose: 1,000 mls/hr Documented by: Admin: 07/07/20 02:50 Dose: 150 mls/hr Documented by: FLORY Vital Signs Vital signs: Vital Signs - 8 hr 07/07/20 02:10 07/07/20 05:00 07/07/20 05:14 Temperature 98.1 F Pulse Rate 90 87 Pulse Rate [Orthostatic Lying] 85 Pulse Rate [Orthostatic Sitting] 98 H Pulse Rate [Orthostatic Standing] 121 H Respiratory Rate 16 16 Blood Pressure 159/81 H 151/87 H Blood Pressure [Orthostatic Lying] 165/76 H Blood Pressure [Orthostatic Sitting] 169/82 H Blood Pressure [Orthostatic Standing] 151/87 H Pulse Oximetry 97 99 07/07/20 05:15 07/07/20 05:30 07/07/20 05:47 Temperature Pulse Rate 93 H 83 85 Pulse Rate [Orthostatic Lying] Pulse Rate [Orthostatic Sitting] Pulse Rate [Orthostatic Standing] Respiratory Rate Blood Pressure 171/73 H Blood Pressure [Orthostatic Lying] Blood Pressure [Orthostatic Sitting] Blood Pressure [Orthostatic Standing] Pulse Oximetry 96 96 94 07/07/20 07:33 Temperature Pulse Rate 94 H Pulse Rate [Orthostatic Lying] Pulse Rate [Orthostatic Sitting] Pulse Rate [Orthostatic Standing] Respiratory Rate Blood Pressure 173/88 H Blood Pressure [Orthostatic Lying] Blood Pressure [Orthostatic Sitting] Blood Pressure [Orthostatic Standing] Pulse Oximetry 95 MDM - Syncope Lab Data Result diagrams: 07/07/20 02:15 07/07/20 02:15 Labs: Lab Results 07/07/20 07/07/20 07/07/20 Range/Units 02:15 02:15 02:15 WBC 5.3 (4.5-11.0) X10^3/uL RBC 4.83 (4.0-5.2) X10^6/uL Hgb 15.0 (12.0-16.0) g/dL Hct 44.2 (36-46) % MCV 91.4 (80-100) fL MCH 31.1 (26-34) PG MCHC 34.0 (30-36) % RDW 13.8 (11.6-14.8) % Plt Count 178 (150-400) X10^3/uL Neut % (Auto) 53.5 (50-75) % Lymph % (Auto) 34.4 (25-40) % [place] % (Auto) 11.2 (3-14) % Eos % (Auto) 0.7 L (2-4) % Baso % (Auto) 0.2 (0-2) % Neut # (Auto) 2800 (5683-5417) /uL Lymph # (Auto) 1800 (2058-2606) /uL [place] # (Auto) 600 (0-900) /uL Eos # (Auto) 0 (0-450) /uL Baso # (Auto) 0 (0-100) /uL PT 11.8 (10.1-12.7) SECONDS INR 1.0 (0.9-1.3) D-Dimer < 200 (<230) ng/mL Sodium (137-145) mmol/L Potassium (3.4-5.1) mmol/L Chloride (98-107) mmol/L Carbon Dioxide (22-32) mmol/L BUN (7-17) mg/dL Creatinine (0.52-1.04) mg/dL Estimated GFR (>60) mL/min BUN/Creatinine Ratio (6-22) Glucose (80-110) mg/dL Calcium (8.4-10.2) mg/dL Magnesium 2.1 (1.6-2.3) mg/dL Total Bilirubin (0.2-1.3) mg/dL AST (14-36) IU/L ALT (<35) IU/L Alkaline Phosphatase (38-126) U/L Total Creatine Kinase (30-135) U/L CK-MB (CK-2) CK-MB (CK-2) Rel Index Troponin I (0.01-0.034) ng/mL NT-Pro-B Natriuret Pep 162 (<450) pg/mL Total Protein (6.3-8.2) g/dL Albumin (3.5-5.0) g/dL Globulin (1.7-4.1) g/dL Albumin/Globulin Ratio (1.0-2.8) Urine Color Urine Appearance Urine pH (4.5-8.0) Ur Specific [place] (1.000-1.035) Urine Protein (Negative) Urine Glucose (UA) (Negative) g/dL Urine Ketones (NEGATIVE) Urine Occult Blood (Negative) Urine Nitrate (Negative) Urine Bilirubin (NEGATIVE) Urine Urobilinogen (0.2) E.U./dL Ur Leukocyte Esterase (NEGATIVE) Urine RBC (0-5/HPF) Urine WBC (0-5/HPF) Urine Bacteria (None) Ur Culture Indicated? 07/07/20 07/07/20 07/07/20 Range/Units 02:15 04:25 04:40 WBC (4.5-11.0) X10^3/uL RBC (4.0-5.2) X10^6/uL Hgb (12.0-16.0) g/dL Hct (36-46) % MCV (80-100) fL MCH (26-34) PG MCHC (30-36) % RDW (11.6-14.8) % Plt Count (150-400) X10^3/uL Neut % (Auto) (50-75) % Lymph % (Auto) (25-40) % [place] % (Auto) (3-14) % Eos % (Auto) (2-4) % Baso % (Auto) (0-2) % Neut # (Auto) (3061-8275) /uL Lymph # (Auto) (5779-5816) /uL [place] # (Auto) (0-900) /uL Eos # (Auto) (0-450) /uL Baso # (Auto) (0-100) /uL PT (10.1-12.7) SECONDS INR (0.9-1.3) D-Dimer (<230) ng/mL Sodium 135 L (137-145) mmol/L Potassium 3.7 (3.4-5.1) mmol/L Chloride 103 (98-107) mmol/L Carbon Dioxide 25 (22-32) mmol/L BUN 8 (7-17) mg/dL Creatinine 0.54 (0.52-1.04) mg/dL Estimated GFR > 60.0 (>60) mL/min BUN/Creatinine Ratio 14.8 (6-22) Glucose 167 H (80-110) mg/dL Calcium 9.8 (8.4-10.2) mg/dL Magnesium (1.6-2.3) mg/dL Total Bilirubin 0.7 (0.2-1.3) mg/dL AST 34 (14-36) IU/L ALT 39 H (<35) IU/L Alkaline Phosphatase 85 (38-126) U/L Total Creatine Kinase < 20 L (30-135) U/L CK-MB (CK-2) TNP CK-MB (CK-2) Rel Index TNP Troponin I < 0.012 < 0.012 (0.01-0.034) ng/mL NT-Pro-B Natriuret Pep (<450) pg/mL Total Protein 6.7 (6.3-8.2) g/dL Albumin 4.1 (3.5-5.0) g/dL Globulin 2.6 (1.7-4.1) g/dL Albumin/Globulin Ratio 1.6 (1.0-2.8) Urine Color Yellow Urine Appearance Clear Urine pH 8.0 (4.5-8.0) Ur Specific [place] 1.010 (1.000-1.035) Urine Protein Negative (Negative) Urine Glucose (UA) Negative (Negative) g/dL Urine Ketones Negative (NEGATIVE) Urine Occult Blood Negative (Negative) Urine Nitrate Negative (Negative) Urine Bilirubin Negative (NEGATIVE) Urine Urobilinogen 0.2 (0.2) E.U./dL Ur Leukocyte Esterase Negative (NEGATIVE) Urine RBC None seen (0-5/HPF) Urine WBC None seen (0-5/HPF) Urine Bacteria None seen (None) Ur Culture Indicated? Cult not indicated Discharge Plan Departure Patient Disposition: Home Clinical Impression: Syncope Discharge Date/Time: 07/07/20 08:48 Instructions: DI for Syncope in Adults (Fainting) Activity Restrictions/Additional Instructions: *You have been diagnosed with [ syncope. Your labs and EKGs are very reassuring. I have spoken to two cardiologists and the seed cone picker doctor for your group about your presentation and all agree that continued close follow up is appropriate ] *What to do: *Continue to take medications as directed *Follow up with your primary care provider at *Return to ER if you should have any new, worsening or concerning symptoms Prescriptions: No Action CA PANTOTHENATE/FOLIC ACID/VIT (MULTIVITAMIN) 1 tab PO Q DAY Qty: 0 RF: 0 atorvastatin 40 mg tablet 40 mg PO BEDTIME Qty: 90 RF: 3 (DME) blood-glucose meter [Blood Glucose Monitoring] Kit See Rx Instructions .ROUTE .MEDSUPPLY Qty: 1 RF: 0 (DME) Blood Glucose Test Strip See Rx Instructions .ROUTE .MEDSUPPLY Qty: 100 RF: 3 Lido/Nystatin/M-Dryl/Rulox See Rx Instructions PO .COMPLEX Qty: 200 RF: 1 vitamin d 25 mcg capsule 1 cap PO DAILY RF: 0 acidophilus-pectin, citrus [Probiotic Acidophilus-Pectin] 100 million cell-10 mg capsule 1 cap PO DAILY RF: 0 oxybutynin chloride 5 mg tablet 5 mg PO DAILY RF: 0 lancets [TechLITE Lancets] 28 gauge misc See Rx Instructions .ROUTE .COMPLEX Qty: 100 RF: 3 metformin 750 mg tablet extended release 24 hr 1,500 mg PO QPM Qty: 90 RF: 3 Hold Instructions: patient experiencing diarrhea. amlodipine 10 mg tablet 10 mg PO DAILY Qty: 30 RF: 3 diphenoxylate-atropine [Lomotil] 2.5-0.025 mg tablet 1 tab PO BID PRN (Reason: diarrhea) Qty: 30 RF: 2 omeprazole 20 mg capsule,delayed release(DR/EC) 20 mg PO BID Qty: 180 RF: 3 azelastine 137 mcg (0.1 %) aerosol,spray 1 - 2 spray INTRANASAL BID PRN (Reason: SEASONAL ALLERGIES) RF: 0 fluticasone propionate [24 Hour Allergy Relief] 50 mcg/actuation spray,suspension 1 spray INTRANASAL BID RF: 0 cranberry 500 mg Capsule 4,200 mg PO DAILY RF: 0 clobetasol 0.05 % cream 1 applic topical BID RF: 0 nystatin-triamcinolone 100,000-0.1 unit/gram-% ointment 1 applic topical BID RF: 0 estradiol [Estrace] 0.01 % (0.1 mg/gram) cream 0.5 gram VAG BEDTIME RF: 0 Referrals: Elicia Storm ARNP [Primary Care Provider] -
[2020-07-07 02:33] LABS: Add Manual Diff / Slide Review NO; Basophils Absolute Auto 0 /uL (0-100); Basophils Percent Auto 0.2 % (0-2); Eosinophils Absolute Auto 0 /uL (0-450); Eosinophils Percent Auto 0.7 % (2-4); Hematocrit 44.2 % (36-46); Lymphocytes Absolute Auto 1800 /uL (1100-4500); Lymphocytes Percent Auto 34.4 % (25-40); Mean Corpuscular Hemoglobin 31.1 PG (26-34); Mean Corpuscular Volume 91.4 fL (80-100); Monocytes Absolute Auto 600 /uL (0-900); Monocytes Percent Auto 11.2 % (3-14); Neutrophils Absolute Auto 2800 /uL (1500-7000); Neutrophils Percent Auto 53.5 % (50-75); Platelet Count 178 X10^3/uL (150-400); Red Blood Cell Count 4.83 X10^6/uL (4.0-5.2); Red Cell Distribution Width 13.8 % (11.6-14.8); White Blood Cell Count 5.3 X10^3/uL (4.5-11.0)
[2020-07-07 02:34] LABS: D Dimer < 200 ng/mL (<230); Magnesium 2.1 mg/dL (1.6-2.3)
[2020-07-07 02:35] LABS: Alanine Aminotransferase 39 IU/L (<35); Albumin 4.1 g/dL (3.5-5.0); Albumin Globulin Ratio 1.6 (1.0-2.8); Alkaline Phosphatase 85 U/L (38-126); Aspartate Aminotransferase 34 IU/L (14-36); BUN Creatinine Ratio 14.8 (6-22); Bilirubin Total 0.7 mg/dL (0.2-1.3); Blood Urea Nitrogen 8 mg/dL (7-17); Calcium 9.8 mg/dL (8.4-10.2); Carbon Dioxide 25 mmol/L (22-32); Chloride 103 mmol/L (98-107); Creatine Kinase < 20 U/L (30-135); Estimated Glomerular Filt Rate > 60.0 mL/min (>60); Globulin 2.6 g/dL (1.7-4.1); Glucose 167 mg/dL (80-110); HEMOLYSIS < 15 (0-50); Potassium 3.7 mmol/L (3.4-5.1); Sodium 135 mmol/L (137-145); Total Protein 6.7 g/dL (6.3-8.2)
[2020-07-07 02:44] LABS: NT-proBNP (BNP-Adult 18+) 162 pg/mL (<450)
[2020-07-07 02:47] LABS: Troponin I < 0.012 ng/mL (0.01-0.034)
[2020-07-07] MEDS: SODIUM CHLORIDE 0.9% 1,000 ML 150 ML IV (02:50)
[2020-07-07 04:54] LABS: Bacteria Urine None Seen; RBC Urine None Seen (0-5/HPF); WBC Urine None Seen (0-5/HPF)
[2020-07-07 04:54] LABS: Troponin I < 0.012 ng/mL (0.01-0.034)
[2020-07-07 04:55] LABS: Appearance Urine UA CLEAR; Bilirubin Urine UA NEGATIVE (NEGATIVE); Color Urine UA YELLOW; Glucose Urine UA NEGATIVE (Negative); Ketones Urine UA NEGATIVE (NEGATIVE); Leukocyte Esterase Urine UA NEGATIVE (NEGATIVE); Nitrite Urine UA NEGATIVE (Negative); Occult Blood Urine UA NEGATIVE (Negative); Protein Urine UA NEGATIVE (Negative); Urobilinogen Urine UA 0.2 E.U./dL (0.2)
[2020-07-07 05:25] LABS: Culture Indicated Urine Cult Not Indicated
--- NOTE | 2020-07-07 08:51 | P.CONS_ITS ---
History of Present Illness Consult details Date Patient Seen: 07/07/20 Time Patient Seen: 07:30 Chief complaint: Sycope Reason for consult: syncope Requesting provider: Julio Cesar Alonso Narrative: Patient is a 79-year-old female with history of chronic hypertension, hyperlipidemia, type 2 diabetes non-insulin requiring, recurrent syncope who presented to the emergency department after in other syncopal event. She states she has had probably a dozen episodes of syncope in the past several months. It always starts to happen when she is standing or walking and she gets dizzy before she actually passes out. She was admitted last month for syncope and found to be orthostatic which was thought to be related to initiation of a new blood pressure medication. She was taken off of amlodipine olmesartan and started on losartan. Her blood pressures at home have been consistently mildly elevated. She has not had any low blood pressure readings. She just completed her ZIO patch. Her echo in October of last year showed normal LV function and no significant valvular disease. She has been taking fluids normally and has not had any vomiting or diarrhea. She has not had fevers, chills, cough. Patient had gotten up in the middle of the night to use the bathroom for bowel movement and felt lightheaded or dizzy when she was walking back to the bedroom. She passed out while sitting at the foot of the bed. Her heard the bench crash on the floor. She was unable to pick herself up. Her current ER evaluation includes laboratories which are normal, EKG which shows normal sinus rhythm with mild nonspecific ST and T-wave abnormality unchanged from prior EKG. She is not hypoglycemic. She is afebrile with mildly elevated blood pressures and heart rate in normal range. She is not orthostatic on BP but heart rate did go up about 20 points with standing. Telemetry has been normal. Meds Home Medications and Allergies Home Medications Medication Instructions Recorded Confirmed Type CA PANTOTHENATE/FOLIC ACID/VIT 1 tab PO Q DAY #0 09/13/11 06/26/20 History (MULTIVITAMIN) acidophilus 100 million 1 cap PO DAILY cap 05/26/19 06/26/20 History cell-pectin, citrus 10 mg capsule nitrofurantoin macrocrystal 100 mg 100 mg PO BEDTIME 05/26/19 06/26/20 History capsule vitamin d 1 cap PO DAILY 05/26/19 06/26/20 History atorvastatin 40 mg tablet 40 mg PO BEDTIME #90 tab 01/03/20 06/26/20 Rx blood-glucose meter #1 each 01/10/20 06/26/20 Rx blood sugar diagnostic #100 each 02/18/20 06/26/20 Rx oxybutynin chloride 5 mg tablet 5 mg PO DAILY 04/14/20 06/26/20 History azelastine 1 - 2 spray INTRANASAL BID PRN 06/05/20 06/26/20 History clobetasol 1 applic TOPICAL BID 06/05/20 06/26/20 History cranberry 4,200 mg PO DAILY 06/05/20 06/26/20 History estradiol [Estrace] 0.5 gram VAG BEDTIME 06/05/20 06/26/20 History fluticasone propionate [24 Hour 1 spray INTRANASAL BID 06/05/20 06/26/20 History Allergy Relief] nystatin-triamcinolone 1 applic TOPICAL BID 06/05/20 06/26/20 History metformin 750 mg tablet,extended 1,500 mg PO QPM #90 tab 06/15/20 06/26/20 Rx release 24 hr lancets 28 gauge See Rx Instructions .ROUTE 06/19/20 06/26/20 Rx .COMPLEX #100 each Lido/Nystatin/M-Dryl/Rulox See Rx Instructions PO .COMPLEX 06/20/20 06/26/20 Rx #200 ml omeprazole 20 mg capsule,delayed 20 mg PO BID #180 cap 06/26/20 06/26/20 Rx release losartan 50 mg tablet See Rx Instructions PO .COMPLEX 07/06/20 Rx #270 tab Allergies Allergy/AdvReac Type Severity Reaction Status Date / Time Sulfa (Sulfonamide Allergy Intermediate HIVES Verified 06/26/20 14:05 Antibiotics) lisinopril Allergy Mild COUGH Verified 06/26/20 14:05 Review of Systems Review of Systems ROS: Yes All systems reviewed with the patient and are negative except as otherwise documented Exam Vital Signs (past 8 hours): - 07/07/20 02:10 07/07/20 05:00 07/07/20 05:14 Temperature 98.1 F Pulse Rate 90 87 Pulse Rate [Orthostatic Lying] 85 Pulse Rate [Orthostatic Sitting] 98 H Pulse Rate [Orthostatic Standing] 121 H Respiratory Rate 16 16 Blood Pressure 159/81 H 151/87 H Blood Pressure [Orthostatic Lying] 165/76 H Blood Pressure [Orthostatic Sitting] 169/82 H Blood Pressure [Orthostatic Standing] 151/87 H Pulse Oximetry 97 99 07/07/20 05:15 07/07/20 05:30 07/07/20 05:47 Temperature Pulse Rate 93 H 83 85 Pulse Rate [Orthostatic Lying] Pulse Rate [Orthostatic Sitting] Pulse Rate [Orthostatic Standing] Respiratory Rate Blood Pressure 171/73 H Blood Pressure [Orthostatic Lying] Blood Pressure [Orthostatic Sitting] Blood Pressure [Orthostatic Standing] Pulse Oximetry 96 96 94 07/07/20 07:33 Temperature Pulse Rate 94 H Pulse Rate [Orthostatic Lying] Pulse Rate [Orthostatic Sitting] Pulse Rate [Orthostatic Standing] Respiratory Rate Blood Pressure 173/88 H Blood Pressure [Orthostatic Lying] Blood Pressure [Orthostatic Sitting] Blood Pressure [Orthostatic Standing] Pulse Oximetry 95 Oxygen Delivery Method Room Air Narrative Exam Narrative: General: Alert female in no acute distress HEENT: Nontraumatic, pupils equal and reactive bilaterally Neck: No lymphadenopathy Lungs: Clear to auscultation Heart: Normal S1 and S2, regular rate and rhythm, no murmur Abdomen: Soft and nontender, no HSM Extremities: Warm, dry, without edema Neurological sensorium intact, speech fluent, no focal weakness Objective Labs Result Diagrams: 07/07/20 02:15 07/07/20 02:15 Labs: Laboratory Results - last 24 hr 07/07/20 07/07/20 07/07/20 02:15 02:15 02:15 WBC 5.3 RBC 4.83 Hgb 15.0 Hct 44.2 MCV 91.4 MCH 31.1 MCHC 34.0 RDW 13.8 Plt Count 178 Neut % (Auto) 53.5 Lymph % (Auto) 34.4 [place] % (Auto) 11.2 Eos % (Auto) 0.7 L Baso % (Auto) 0.2 Neut # (Auto) 2800 Lymph # (Auto) 1800 [place] # (Auto) 600 Eos # (Auto) 0 Baso # (Auto) 0 PT 11.8 INR 1.0 D-Dimer < 200 Sodium Potassium Chloride Carbon Dioxide BUN Creatinine Estimated GFR BUN/Creatinine Ratio Glucose Calcium Magnesium 2.1 Total Bilirubin AST ALT Alkaline Phosphatase Total Creatine Kinase CK-MB (CK-2) CK-MB (CK-2) Rel Index Troponin I NT-Pro-B Natriuret Pep 162 Total Protein Albumin Globulin Albumin/Globulin Ratio Urine Color Urine Appearance Urine pH Ur Specific [place] Urine Protein Urine Glucose (UA) Urine Ketones Urine Occult Blood Urine Nitrate Urine Bilirubin Urine Urobilinogen Ur Leukocyte Esterase Urine RBC Urine WBC Urine Bacteria Ur Culture Indicated? 07/07/20 07/07/20 07/07/20 02:15 04:25 04:40 WBC RBC Hgb Hct MCV MCH MCHC RDW Plt Count Neut % (Auto) Lymph % (Auto) [place] % (Auto) Eos % (Auto) Baso % (Auto) Neut # (Auto) Lymph # (Auto) [place] # (Auto) Eos # (Auto) Baso # (Auto) PT INR D-Dimer Sodium 135 L Potassium 3.7 Chloride 103 Carbon Dioxide 25 BUN 8 Creatinine 0.54 Estimated GFR > 60.0 BUN/Creatinine Ratio 14.8 Glucose 167 H Calcium 9.8 Magnesium Total Bilirubin 0.7 AST 34 ALT 39 H Alkaline Phosphatase 85 Total Creatine Kinase < 20 L CK-MB (CK-2) TNP CK-MB (CK-2) Rel Index TNP Troponin I < 0.012 < 0.012 NT-Pro-B Natriuret Pep Total Protein 6.7 Albumin 4.1 Globulin 2.6 Albumin/Globulin Ratio 1.6 Urine Color Yellow Urine Appearance Clear Urine pH 8.0 Ur Specific [place] 1.010 Urine Protein Negative Urine Glucose (UA) Negative Urine Ketones Negative Urine Occult Blood Negative Urine Nitrate Negative Urine Bilirubin Negative Urine Urobilinogen 0.2 Ur Leukocyte Esterase Negative Urine RBC None seen Urine WBC None seen Urine Bacteria None seen Ur Culture Indicated? Cult not indicated Assessment & Plan Assessment & Plan narrative: This is a 79-year-old female with hypertension, h yperlipidemia, type 2 diabetes, numerous prior episodes of syncope who now presents with another syncopal event. She is not orthostatic by BP but heart rate did go up with standing. However I do not think syncope is due to classic orthostatic hypotension. Prior echo in the past year shows no structural abnormality. EKG, telemetry and labs are all reassuring as well. I think most likely this is reflex or vasovagal syncope. Patient would benefit from cardiology consultation to get a tilt-table test. She should also follow-up on ZIO patch results though I doubt arrhythmia since we have not observed anything on telemetry in the ER or on last admission. I understand Dr. Alonso also reviewed EKG findings and presentation with organ builder on-call who recommended outpatient follow-up. Additionally patient reports she recently saw neurologist for syncope evaluation who did not think there was anything primary neurological causing these events. I feel patient is at low risk for discharging from the ER since she seems to get a warning and able to sit down before passing out. I reviewed my findings with the patient in detail and also discussed with Dr. Alonso patient can be discharged from ER with close PCP follow-up. She does have cardiology appointment in early July but can try to be seen sooner.
== END 2020-07-07 08:48 | disposition home or self-care (01) ==
PROVIDERS: Emergency Provider Emergency Medicine; Family Provider Nurse Practitioner; PCP Nurse Practitioner
DX: R55 Syncope and collapse (principal); I10 Essential (primary) hypertension; E78.5 Hyperlipidemia, unspecified; E11.9 Type 2 diabetes mellitus without complications
CPT/HCPCS: 36415; 80053; 81001; 82550; 83735; 83880; 84484; 85025; 85379; 85610; 93005; 96360; 96361; 99284

== ENCOUNTER → 2020-07-19 13:45 | Outpatient (CLI) | payer MEDICARE, BC, SELFPAY ==
[2020-06-05 13:56] VITALS: BMI 25.9
[2020-07-19 14:14] LABS: Hemoglobin A1C% w Est Avg Glu 5.7 % (4.0-6.0)
[2020-07-19 14:20] LABS: Alanine Aminotransferase 25 IU/L (<35); Albumin 3.9 g/dL (3.5-5.0); Albumin Globulin Ratio 1.7 (1.0-2.8); Alkaline Phosphatase 77 U/L (38-126); Aspartate Aminotransferase 27 IU/L (14-36); BUN Creatinine Ratio 13.8 (6-22); Bilirubin Total 0.7 mg/dL (0.2-1.3); Blood Urea Nitrogen 9 mg/dL (7-17); Calcium 9.4 mg/dL (8.4-10.2); Carbon Dioxide 29 mmol/L (22-32); Chloride 102 mmol/L (98-107); Cholesterol 119 mg/dL (140-199); Estimated Glomerular Filt Rate > 60.0 mL/min (>60); Globulin 2.3 g/dL (1.7-4.1); Glucose 159 mg/dL (80-110); HDL Cholesterol 44 mg/dL (40-60); HEMOLYSIS < 15 (0-50); LDL Cholesterol Calculated 47 mg/dL (<100); Potassium 3.6 mmol/L (3.4-5.1); Sodium 138 mmol/L (137-145); Total Protein 6.2 g/dL (6.3-8.2); Triglycerides 140 mg/dL (35-150)
[2020-07-19 15:25] LABS: Creatinine Urine Random 61.6 mg/dL
[2020-07-19 15:31] LABS: Microalbumi Creatinin Ratio Ur 29.2 ug/mg CR (<30); Microalbumin Urine Random 1.8 mg/dL (0-1.6)
== END ==
PROVIDERS: Family Provider Nurse Practitioner; PCP Nurse Practitioner; Referring Provider Nurse Practitioner; Visit Provider Nurse Practitioner
DX: E11.9 Type 2 diabetes mellitus without complications (principal); E78.5 Hyperlipidemia, unspecified; E83.42 Hypomagnesemia; E87.1 Hypo-osmolality and hyponatremia; I10 Essential (primary) hypertension
CPT/HCPCS: 36415; 80053; 80061; 82043; 82570; 83036; 83735

== ENCOUNTER → 2020-07-25 13:58 | Outpatient (CLI) | payer MEDICARE, BC, SELFPAY ==
[2020-06-05 13:56] VITALS: BMI 25.9
--- NOTE | 2020-07-25 15:25 | DIET.PN ---
Diabetes Follow Up Assess: Met for Mrs. Cordero?s 3 mo follow up visit. She has lost nearly 30 lb since our initial visit. Much of this was intentional, however over the last 6 weeks she has been experiencing fatigue, dizziness, and GI complications including pain, reflux, and runny stools. She discontinued metformin 1 month ago and is managing her blood glucose through lifestyle change. Her dietary patterns have been limited to oatmeal, crackers, bananas, yogurt, turkey, canned chicken and fish. She has not been able to exercise much due to fatigue, but is looking forward to riding her bike again once she is able. She is very happy with her recent lab results including A1c and lipid panel. Labs: A1c: 5.7 (06/2020) 6.1 (04/12) 9.4 (02/10) TC: 119 LDL: 47 HDL: 44 Tr Meds: metf d/c due to GI side effects Dietary changes: cut out all sugar and most starches, limiting portion sizes, reading food labels, portion plate Ht: 68in Wt: 163 lb (down 22lb) BMI: 24.8 Nutrition DX: Altered nutrition related laboratory values related to impaired glucose metabolism, lack of previous exposure to nutrition information as evidenced by pt report, diagnosis of diabetes, previous diet high in refined carbohydrates. Intervention: 1. Completed follow up assessment. Reviewed barriers to care. 2. Reviewed new labs and importance of continued BG monitoring. 3. Reviewed SMART goals and made modifications where appropriate including wt management, activity, and A1c goals. 4. Discussed plan for ongoing support. Provided information for continued support and success. SMART goals: 1. Pt would like to continue mindful eating and exercise for goal weight (165 lb) maintenance. Monitor/Evaluate: Pt will follow up in 3 mo to discuss new labs and barriers to care.
== END ==
PROVIDERS: Family Provider Nurse Practitioner; PCP Nurse Practitioner; Referring Provider Nurse Practitioner; Visit Provider Nurse Practitioner
DX: E11.9 Type 2 diabetes mellitus without complications (principal); R53.83 Other fatigue; R42 Dizziness and giddiness; R19.7 Diarrhea, unspecified; R10.9 Unspecified abdominal pain; Z71.3 Dietary counseling and surveillance; Z68.24 Body mass index [BMI] 24.0-24.9, adult
CPT/HCPCS: G0109

== ENCOUNTER → 2020-08-08 13:42 | Outpatient (CLI) | payer MEDICARE, BC, SELFPAY ==
[2020-06-05 13:56] VITALS: BMI 25.9
--- NOTE | 2020-08-08 14:07 | DI.ECHO.S_ITS ---
Echocardiogram Report + + :Name: NUHA FERNANDEZ Study Date: 08/08/2020 Height: 68 in : :[facility] Weight: 163 lb : : Gender: Female BSA: 1.9 m2 : :: 1940 Age: 79 yrs BP: 141/79 mmHg: :Reason For Study: SYNCOPE : :Ordering Physician: QUINTON, : :ALLYSON Performed By: Nayeli Courtney : :Referring: ALLYSON MARTINEZ : + + Interpretation Summary 1) Normal left ventricular thickness, size, wall motion and systolic function (EF 60-65%). 2) Normal right ventricular size and function. 3) No significant valvular abnormalities. 4) Comnpared to the Echo done 11/11/2019, no significant change. Procedure: A two-dimensional transthoracic echocardiogram with color flow and Doppler was performed. The study quality was technically adequate. Comparison is made with the echocardiogram of 11/11/2019. The patient was in sinus rhythm with heart rates between 59-65 bpm during the exam. Left Ventricle: The left ventricle is normal in size and wall thickness. The ejection fraction is estimated to be 60-65%. Left ventricular systolic function is normal without focal wall motion abnormalities. Diastolic function could not be accurately assessed due to contradictory data. Right Ventricle: The right ventricle is normal in size and function. Atria: The left atrial size is normal. Right atrial size is normal. There is no Doppler evidence for an interatrial shunt. Mitral Valve: The mitral valve leaflets appear mildly thickened, but open well. There is mild mitral regurgitation. Aortic Valve: The aortic valve is trileaflet. The aortic valve opens well. There is no aortic valve stenosis. No aortic regurgitation is present. Tricuspid Valve: The tricuspid valve is normal in structure and function. Pulmonary artery pressures cannot be estimated because of the lack of a measurable TR jet velocity but the IVC suggests a CVP of around 3 mmHg. There is trace tricuspid regurgitation. Pulmonic Valve: The pulmonic valve leaflets are thin and pliable; valve motion is normal. There is mild pulmonic regurgitation. Great Vessels: The aortic root is normal size. The ascending aorta is at the upper limits of normal in size. The IVC is of normal diameter and collapses greater than 50% with a sniff. This suggests a low right atrial pressure of 3 mm Hg. Pericardium/ Pleura There is no pericardial effusion. There is no pleural effusion. MMode/2D Measurements & Calculations LVIDd: 4.7 cm LVOT diam: 2.1 cm LVIDs: 2.9 cm Ao root diam: 3.4 cm FS: 38.1 % asc Aorta Diam: 3.8 cm EPSS: 0.55 cm Ao Arch Diam (Prox Trans): 2.9 cm IVSd: 0.77 cm LVPWd: 0.86 cm LV metz. diameter/BSA (cm/m^2): 2.5 LV sys. diameter/BSA (cm/m^2): 1.5 LA A2 area: 17.3 cm2 RA long axis: 5.0 cm LA A4 area: 19.5 cm2 RA area: 14.6 cm2 LA length (vol): 5.4 cm RA vol: 36.0 ml LA vol: 52.4 ml RA : 19.2 ml/m2 LA vol index: 28.0 ml/m2 IVC diam: 0.95 cm RVD1 (basal): 2.9 cm TAPSE: 2.1 cm Doppler Measurements & Calculations Ao V2 max: 127.3 cm/sec LVOT Max Akira: 109.4 cm/sec Ao V2 mean: 88.5 cm/sec LV V1 max P.8 mmHg Ao max P.5 mmHg LV V1 VTI: 24.1 cm Ao mean P.5 mmHg ADRIANA(I,D): 3.0 cm2 Ao V2 VTI: 26.6 cm ADRIANA(V,D): 2.9 cm2 sev ratio: 0.90 ADRIANA indexed to BSA (cm^2/m^2): 1.6 MV E max akira: 72.5 cm/sec PA V2 max: 79.2 cm/sec MV A max akira: 102.5 cm/sec PA V2 mean: 51.9 cm/sec MV E/A: 0.71 PA mean P.3 mmHg Med Peak E' Akira: 5.9 cm/sec PA pr(Accel): 27.6 mmHg E/E' med: 12.3 Lat Peak E' Akira: 5.6 cm/sec E/E' lat: 13.0 E/e' average: 12.6 MV dec time: 0.25 sec SV(LVOT): 79.9 ml Reading Physician:12:19 PM
== END ==
PROVIDERS: Family Provider Nurse Practitioner; PCP Nurse Practitioner; Referring Provider Internal Medicine Cardiovascular Disease; Visit Provider Internal Medicine Cardiovascular Disease
DX: R55 Syncope and collapse (principal); I34.0 Nonrheumatic mitral (valve) insufficiency
CPT/HCPCS: 93306

== ENCOUNTER → 2020-08-15 14:25 | Outpatient (CLI) | payer MEDICARE, BC, SELFPAY ==
[2020-06-05 13:56] VITALS: BMI 25.9
[2020-08-16 14:23] LABS: COVID19 Sendout Not Detected (Not Detect)
== END ==
PROVIDERS: Family Provider Nurse Practitioner; PCP Nurse Practitioner; Visit Provider Physician Assistant
DX: Z11.59 Encounter for screening for other viral diseases (principal)
CPT/HCPCS: 87635

== ENCOUNTER → 2020-10-18 12:40 | Outpatient (CLI) | payer MEDICARE, BC, SELFPAY ==
[2020-06-05 13:56] VITALS: BMI 25.9
--- NOTE | 2020-10-18 12:43 | DI.MG.S_ITS ---
UNILATERAL RIGHT DIGITAL DIAGNOSTIC MAMMOGRAM 3D/2D SHORT-TERM FOLLOW-UP: 10/18/2020 CLINICAL: Patient returns for a 6 month follow up of the right breast. Comparison is made to exams dated: 05/12/2020 mammogram, 05/14/2019 mammogram, and 04/29/2019 mammogram - [facility]. The tissue of right breast is heterogeneously dense. This may lower the sensitivity of mammography. Unchanged grouped amorphous coarse rim calcifications in the right breast at 12 o'clock middle depth, with peripheral distribution consistent with degenerating fibroadenoma. No other significant masses or calcifications are seen in the breast. IMPRESSION: PROBABLY BENIGN Unchanged grouped amorphous and coarse calcifications in the right breast which resemble a degenerating fibroadenoma and are probably benign. A follow-up mammogram in 6 months is recommended, to coincide with screening left mammogram. This exam was interpreted at Station ID: [id number]. NOTE: For mammograms, a report in lay terms will be sent to the patient. Approximately 15% of breast malignancies will not be visualized mammographically. In the management of a palpable breast mass, a negative mammogram must not discourage biopsy of a clinically suspicious lesion. Electronically Signed By: Casimiro Hopkins M.D. jr/:10/18/2020 13:34:22 copy to: AYLEEN CALI letter sent: Followup Recommended ACR BI-RADS Category 3: Probably benign 3343F
== END ==
PROVIDERS: Family Provider Nurse Practitioner; PCP Family Medicine; Referring Provider Family Medicine; Visit Provider Family Medicine
DX: R92.1 Mammographic calcification found on diagnostic imaging of breast (principal)
CPT/HCPCS: 77065; G0279

== ENCOUNTER → 2020-10-27 11:08 | Outpatient (CLI) | payer MEDICARE, BC, SELFPAY ==
[2020-06-05 13:56] VITALS: BMI 25.9
[2020-10-27 12:07] LABS: Add Manual Diff / Slide Review NO; Basophils Absolute Auto 0 /uL (0-100); Basophils Percent Auto 0.3 % (0-2); Eosinophils Absolute Auto 0 /uL (0-450); Eosinophils Percent Auto 0.7 % (2-4); Hematocrit 42.6 % (36-46); Hemoglobin 14.7 g/dL (12.0-16.0); Lymphocytes Absolute Auto 1600 /uL (1100-4500); Lymphocytes Percent Auto 26.8 % (25-40); Mean Corpuscular HGB Conc 34.5 % (30-36); Mean Corpuscular Hemoglobin 31.3 PG (26-34); Mean Corpuscular Volume 90.6 fL (80-100); Monocytes Absolute Auto 600 /uL (0-900); Monocytes Percent Auto 10.6 % (3-14); Neutrophils Absolute Auto 3700 /uL (1500-7000); Neutrophils Percent Auto 61.6 % (50-75); Platelet Count 152 X10^3/uL (150-400); Red Cell Distribution Width 12.9 % (11.6-14.8)
[2020-10-27 12:16] LABS: Hemoglobin A1C% w Est Avg Glu 5.8 % (4.0-6.0)
[2020-10-27 12:27] LABS: INR 1.1 (0.9-1.3); Prothrombin Time 12.6 SECONDS (10.1-12.7)
[2020-10-27 12:30] LABS: PTT Partial Thromboplastin Tim 41 SECONDS (26.4-36.2)
[2020-10-27 12:49] LABS: BUN Creatinine Ratio 29.3 (6-22); Blood Urea Nitrogen 17 mg/dL (7-17); Calcium 9.3 mg/dL (8.4-10.2); Carbon Dioxide 31 mmol/L (22-32); Chloride 102 mmol/L (98-107); Estimated Glomerular Filt Rate > 60.0 mL/min (>60); Glucose 130 mg/dL (80-110); HEMOLYSIS < 15 (0-50); Sodium 136 mmol/L (137-145)
== END ==
PROVIDERS: Family Provider Nurse Practitioner; PCP Family Medicine; Referring Provider Family Medicine; Visit Provider Family Medicine
DX: E11.9 Type 2 diabetes mellitus without complications (principal); Z79.899 Other long term (current) drug therapy; E78.5 Hyperlipidemia, unspecified; E88.81 Metabolic syndrome and other insulin resistance; I10 Essential (primary) hypertension; R23.8 Other skin changes; R19.7 Diarrhea, unspecified
CPT/HCPCS: 36415; 80048; 83036; 85025; 85610; 85730

== ENCOUNTER → 2021-01-22 10:38 | Outpatient (CLI) | payer MEDICARE, BC, SELFPAY ==
[2021-01-15 08:44] VITALS: BMI 25.9
[2021-01-22 11:30] LABS: Hemoglobin A1C% w Est Avg Glu 6.1 % (4.0-6.0)
[2021-01-22 11:36] LABS: BUN Creatinine Ratio 23.8 (6-22); Blood Urea Nitrogen 15 mg/dL (7-17); Calcium 9.5 mg/dL (8.4-10.2); Carbon Dioxide 29 mmol/L (22-32); Chloride 102 mmol/L (98-107); Estimated Glomerular Filt Rate > 60.0 mL/min (>60); Glucose 113 mg/dL (80-110); HEMOLYSIS < 15 (0-50); Potassium 3.7 mmol/L (3.4-5.1); Sodium 136 mmol/L (137-145)
== END ==
PROVIDERS: Family Provider Nurse Practitioner; PCP Family Medicine; Referring Provider Family Medicine; Visit Provider Family Medicine
DX: E11.9 Type 2 diabetes mellitus without complications (principal); I10 Essential (primary) hypertension
CPT/HCPCS: 36415; 80048; 83036

== ENCOUNTER → 2021-03-19 16:06 | Outpatient (CLI) | payer MEDICARE, BC, SELFPAY ==
[2021-01-15 08:44] VITALS: BMI 25.9
--- NOTE | 2021-03-19 16:09 | DI.RAD.S_ITS ---
PROCEDURE: XR FINGER LT MIN 2V INDICATIONS: L thumb contusion TECHNIQUE: AP hand, 2 views of the 1st finger(s) acquired. COMPARISON: None. FINDINGS: Bones: Linear lucency traverses the midportion of the distal phalanx of the 1st digit. No suspicious bony lesions. Mild periarticular osteophyte formation at the interphalangeal joints of the digits, as well as the scaphoid trapezial and 1st carpometacarpal joints. Well corticated osseous structure adjacent to the interphalangeal joint of the 1st digit is present, consistent with the chronic fracture. Smaller calcifications versus chronic fracture fragments at the anterior and posterior aspects of the distal aspect of the proximal phalanx of the 1st digit. Soft tissues: No suspicious soft tissue calcifications. IMPRESSION: 1. Possible minimally displaced 1st digit fracture. Dictated by: Gomez Thao M.D. on 03/19/2021 at 16:21 Approved by: Gomez Thao M.D. on 03/19/2021 at 16:23
== END ==
PROVIDERS: Family Provider Nurse Practitioner; PCP Family Medicine; Referring Provider Physician Assistant; Visit Provider Physician Assistant
DX: S60.012A Contusion of left thumb without damage to nail, initial encounter (principal); X58.XXXA Exposure to other specified factors, initial encounter
CPT/HCPCS: 73140

== ENCOUNTER 2021-03-21 10:17 | Emergency (ER) | payer MEDICARE, BC, SELFPAY ==
[2021-01-15 08:44] VITALS: BMI 25.9
[2021-03-21 10:20] VITALS: BP 168/77; PULSE 70; RESP 14; TEMP 36.6; O2SAT 98; BMI 25.0
--- NOTE | 2021-03-21 10:33 | ED.GENADULT ---
HPI - General Adult General Chief complaint: Extremity Problem,Nontraumatic Stated complaint: possible blood clot in left leg Time Seen by Provider: 03/21/21 10:25 Source: patient Mode of arrival: Ambulatory Limitations: no limitations History of Present Illness HPI narrative: Patient is a 80-year-old female not on anticoagulation here for evaluation under recommendation from her primary doctor for concerns of a blood clot in her left leg. She states that several weeks ago she started having swelling in her left lower extremity. She now has bilateral lower extremity swelling with the left still being slightly larger than the right. She states that over the past 24 hours she has developed pain in her left ankle. She has no chest pain no shortness of breath. She has never had any blood clots in the past. She contacted her primary doctor telling them that she had pain in her left leg and she was instructed to come to the emergency department for evaluation. Related Data Home Medications Medication Instructions Recorded Confirmed CA PANTOTHENATE/FOLIC ACID/VIT 1 tab PO Q DAY #0 09/13/11 03/07/21 (MULTIVITAMIN) acidophilus 100 million 1 cap PO DAILY cap 05/26/19 03/07/21 cell-pectin, citrus 10 mg capsule vitamin d 1 cap PO DAILY 05/26/19 03/07/21 oxybutynin chloride 5 mg tablet 5 mg PO DAILY 04/14/20 03/07/21 cranberry 4,200 mg PO DAILY 06/05/20 03/07/21 fluticasone propionate [24 Hour 1 spray INTRANASAL BID 06/05/20 03/07/21 Allergy Relief] atenolol 50 mg tablet 25 mg PO BID tab 07/20/20 03/07/21 azelastine 137 mcg (0.1 %) nasal 1 spray INTRANASAL BID 01/22/21 03/07/21 spray aerosol cetirizine 10 mg tablet 5 mg PO DAILY PRN 01/22/21 03/07/21 ipratropium bromide 21 mcg (0.03 2 spray INTRANASAL BID 01/22/21 03/07/21 %) nasal spray Previous Rx's Medication Instructions Recorded atorvastatin 40 mg tablet 40 mg PO BEDTIME #90 tab 01/03/20 blood-glucose meter #1 each 01/10/20 blood sugar diagnostic #100 each 02/18/20 lancets 28 gauge See Rx Instructions .ROUTE 06/19/20 .COMPLEX #100 each ciprofloxacin HCl 500 mg tablet 500 mg PO BID #56 tab 02/08/21 amlodipine 10 mg tablet 10 mg PO DAILY #30 tab 02/13/21 clobetasol 0.05 % topical cream See Rx Instructions .ROUTE 02/14/21 .COMPLEX #120 gram estradiol See Rx Instructions .ROUTE 02/14/21 .COMPLEX #42.5 g gentamicin 0.1 % topical ointment 1 applic TOPICAL QID #30 g 02/21/21 omeprazole 20 mg capsule,delayed 20 mg PO DAILY #90 cap 03/07/21 release cephalexin 500 mg capsule 500 mg PO Q6H 5 Days #20 cap 03/19/21 furosemide [Lasix] 20 mg PO DAILY 7 Days #7 tab 03/21/21 Allergies Allergy/AdvReac Type Severity Reaction Status Date / Time Sulfa (Sulfonamide Allergy Intermediate HIVES Verified 03/07/21 08:24 Antibiotics) lisinopril Allergy Mild COUGH Verified 03/07/21 08:24 ARB-Angiotensin Receptor AdvReac Severe syncope, Verified 03/07/21 08:24 Antagonist diarrhea Review of Systems Constitutional Constitutional: Denies fatigue, Denies fever(s) and Denies headache(s) Eyes Eyes: Denies change in vision ENT Ears, Nose, Mouth, and Throat: Denies headache(s) and Denies sore throat Cardiovascular Cardiovascular: Denies chest pain and Denies dyspnea Respiratory Respiratory: Denies cough and Denies dyspnea Gastrointestinal Gastrointestinal: Denies abdominal pain, Denies nausea and Denies vomiting Genitourinary Genitourinary: Denies dysuria Genitourinary: Denies dysuria and Denies vaginal discharge Musculoskeletal Comments: Left ankle pain, swelling bilateral lower extremities Integumentary/Breasts Skin/Breast: Denies lesions and Denies rash Neurologic Neurologic: Denies behavioral changes, Denies confusion and Denies headache(s) Psychiatric Psychiatric: Denies behavioral changes and Denies confusion Endocrine Endocrine: Denies fatigue Hematologic/Lymphatic On Anticoagulants: No Allergic/Immunologic Allergic/Immunologic: Denies urticaria Patient History Medical History Abnormal mammogram of right breast (~04/2020) Acid reflux Angular cheilitis Chicken pox (~1950) Chronic vaginitis (04/01/16) Diarrhea Dizziness Edema of foot (11/01/15) Esophagitis Frequent UTI Green nails Hearing loss Hyperlipidemia Hypertension Hypomagnesemia Hyponatremia Lichen sclerosus of female genitalia Measles (~1950) Mumps (~1949) Obstructive sleep apnea hypopnea, moderate Onychomycosis Oral thrush Osteoarthritis of left hip (04/01/16) Overweight (BMI 25.0-29.9) Palpitations Shortness of breath on exertion Snoring Syncope Vision disorder Vulvitis Surgical History Anesthesia History of left hip replacement Status post hernia repair (~1964) Family History Brother Age: 82 Detached retina Father Cancer Loud snoring Mother Hypertension Social History household members: spouse Smoking Status: Former smoker alcohol intake: current substance use type: does not use eating out: rarely or never Type(s) of exercise: bicycling Smoking Status: Former smoker alcohol intake frequency: a few times a month Substance Use Type: does not use Exam Initial Vital Signs Initial Vital Signs: Vital Signs Temperature 97.8 F 03/21/21 10:20 Pulse Rate 70 03/21/21 10:20 Respiratory Rate 14 03/21/21 10:20 Blood Pressure 168/77 H 03/21/21 10:20 Pulse Oximetry 98 03/21/21 10:20 Const General: cooperative, comfortable and well developed Limitations: mental status not altered HENMT Head: normal to inspection and normocephalic Eyes General: appearance normal, both eyes and all related structures Resp Effort & Inspection: normal respiratory effort Cardio Rate: regular rate Pulses: dorsalis pedis present GI Inspection: non-distended Skin Lesions: no lesions Rashes: no rashes Neuro General: patient alert, patient awake and patient oriented x3 Gait: normal gait Motor: muscle tone normal throughout Sensory Exam: no sensory deficits noted Extrem General: normal to inspection, capillary refill normal, no joint enlargement, no calf tenderness and edema (Bilateral lower extremities) Other: Patient does have tenderness to palpation lateral aspect of her left ankle Psych Appearance: grossly normal and well kempt Scores Wells' Criteria for DVT Active Cancer (Treatment within 6 months): No Bedridden recently >3 days or major surgery within 4 weeks: No Calf Swelling >3cm compared to other leg: No Collateral (nonvericose) superficial veins present: No Entire leg swollen: Yes Localized tenderness along the deep vein system: No Pitting edema, confined to symtomatic leg: No Paralysis, paresis, or recent plaster immobilization of ext: No Previously documented DVT: No Alternative dx to DVT as likely or more likely: Yes Wells' criteria for DVT: -1 Course Orders Ordered: ED Orders 03/21/21 10:51 Complete Blood Count AUTO DIFF Stat Comprehensive Metabolic Panel Stat Lipase Stat NT-proBNP (BNP-Adult 18+) Stat Vital Signs Vital signs: Vital Signs - 8 hr 03/21/21 10:20 03/21/21 11:54 Temperature 97.8 F Pulse Rate 70 60 Respiratory Rate 14 16 Blood Pressure 168/77 H 162/70 H Pulse Oximetry 98 99 Medical Decision Making Lab Data Lab results reviewed: Yes I reviewed the patient's lab results. Result diagrams: 03/21/21 10:51 03/21/21 10:51 Labs: Lab Results 03/21/21 03/21/21 Range/Units 10:51 10:51 WBC 6.0 (4.5-11.0) X10^3/uL RBC 4.70 (4.0-5.2) X10^6/uL Hgb 14.9 (12.0-16.0) g/dL Hct 42.9 (36-46) % MCV 91.2 (80-100) fL MCH 31.8 (26-34) PG MCHC 34.9 (30-36) % RDW 13.2 (11.6-14.8) % Plt Count 139 L (150-400) X10^3/uL Neut % (Auto) 56.6 (50-75) % Lymph % (Auto) 30.3 (25-40) % [place] % (Auto) 12.0 (3-14) % Eos % (Auto) 0.6 L (2-4) % Baso % (Auto) 0.5 (0-2) % Neut # (Auto) 3400 (6865-6998) /uL Lymph # (Auto) 1800 (1973-6810) /uL [place] # (Auto) 700 (0-900) /uL Eos # (Auto) 0 (0-450) /uL Baso # (Auto) 0 (0-100) /uL Sodium 137 (137-145) mmol/L Potassium 3.7 (3.4-5.1) mmol/L Chloride 102 (98-107) mmol/L Carbon Dioxide 27 (22-32) mmol/L BUN 12 (7-17) mg/dL Creatinine 0.50 L (0.52-1.04) mg/dL Estimated GFR > 60.0 (>60) mL/min BUN/Creatinine Ratio 24.0 H (6-22) Glucose 130 H (80-110) mg/dL Calcium 9.6 (8.4-10.2) mg/dL Total Bilirubin 0.7 (0.2-1.3) mg/dL AST 36 (14-36) IU/L ALT 43 H (<35) IU/L Alkaline Phosphatase 109 (38-126) U/L NT-Pro-B Natriuret Pep 98 (<450) pg/mL Total Protein 6.7 (6.3-8.2) g/dL Albumin 4.1 (3.5-5.0) g/dL Globulin 2.6 (1.7-4.1) g/dL Albumin/Globulin Ratio 1.6 (1.0-2.8) Lipase 105 (23-300) U/L MDM Narrative Medical decision making narrative: She has no chest pain. No shortness of breath. She is low risk for DVT per the well's criteria. Her left lower extremity is slightly larger compared to the right but not greater than 3 cm. She does have slight tenderness to palpation along the lateral malleolus but can walk and states she has not fallen. I feel we can hold on radiologic studies. She is not clinically in heart failure. Her BNP is unremarkable. Low suspicion for pulmonary embolism. Plan of these to start her on a couple days of Lasix to see this does not improve her lower extremity swelling. She does have compression stockings at home. She does keep her feet elevated. She will contact her primary doctor for follow-up. She is given return precautions. She expressed understanding and agreement. Discharge Plan Departure Patient Disposition: Home Clinical Impression: Peripheral edema, Ankle pain, left Instructions: DI for Peripheral Edema -- Bilateral Activity Restrictions/Additional Instructions: I do recommend that you take all of your medications as directed. We will start you on a diuretic to see if this does not improve some of your edema. If it does I recommend you talk with your primary doctor about a more long-term treatment with this medication. Return to the emergency department for any new or worsening symptoms Prescriptions: New furosemide [Lasix] 20 mg tablet 20 mg PO DAILY 7 Days Qty: 7 RF: 0 No Action cephalexin 500 mg capsule 500 mg PO Q6H 5 Days Qty: 20 RF: 0 CA PANTOTHENATE/FOLIC ACID/VIT (MULTIVITAMIN) 1 tab PO Q DAY Qty: 0 RF: 0 atorvastatin 40 mg tablet 40 mg PO BEDTIME Qty: 90 RF: 3 (DME) blood-glucose meter [Blood Glucose Monitoring] Kit See Rx Instructions .ROUTE .MEDSUPPLY Qty: 1 RF: 0 (DME) Blood Glucose Test Strip See Rx Instructions .ROUTE .MEDSUPPLY Qty: 100 RF: 3 amlodipine 10 mg tablet 10 mg PO DAILY Qty: 30 RF: 3 clobetasol 0.05 % cream See Rx Instructions .ROUTE .COMPLEX Qty: 120 RF: 2 estradiol 0.01 % (0.1 mg/gram) cream See Rx Instructions .ROUTE .COMPLEX Qty: 42.5 RF: 3 vitamin d 25 mcg capsule 1 cap PO DAILY RF: 0 acidophilus-pectin, citrus [Probiotic Acidophilus-Pectin] 100 million cell-10 mg capsule 1 cap PO DAILY RF: 0 oxybutynin chloride 5 mg tablet 5 mg PO DAILY RF: 0 lancets [TechLITE Lancets] 28 gauge misc See Rx Instructions .ROUTE .COMPLEX Qty: 100 RF: 3 ciprofloxacin HCl 500 mg tablet 500 mg PO BID Qty: 56 RF: 0 atenolol 50 mg tablet 25 mg PO BID RF: 0 gentamicin 0.1 % ointment 1 applic topical QID Qty: 30 RF: 0 cetirizine 10 mg tablet 5 mg PO DAILY PRNRF: 0 azelastine 137 mcg (0.1 %) aerosol,spray 1 spray intranasal BID RF: 0 ipratropium bromide 0.03 % spray,non-aerosol 2 spray intranasal BID RF: 0 omeprazole 20 mg capsule,delayed release(DR/EC) 20 mg PO DAILY Qty: 90 RF: 3 fluticasone propionate [24 Hour Allergy Relief] 50 mcg/actuation spray,suspension 1 spray INTRANASAL BID RF: 0 cranberry 500 mg Capsule 4,200 mg PO DAILY RF: 0 Referrals: Kaylin Cerda DO [Primary Care Provider] -
[2021-03-21 11:02] LABS: Add Manual Diff / Slide Review NO; Basophils Absolute Auto 0 /uL (0-100); Basophils Percent Auto 0.5 % (0-2); Eosinophils Absolute Auto 0 /uL (0-450); Eosinophils Percent Auto 0.6 % (2-4); Hematocrit 42.9 % (36-46); Hemoglobin 14.9 g/dL (12.0-16.0); Lymphocytes Absolute Auto 1800 /uL (1100-4500); Lymphocytes Percent Auto 30.3 % (25-40); Mean Corpuscular HGB Conc 34.9 % (30-36); Mean Corpuscular Hemoglobin 31.8 PG (26-34); Mean Corpuscular Volume 91.2 fL (80-100); Monocytes Absolute Auto 700 /uL (0-900); Neutrophils Absolute Auto 3400 /uL (1500-7000); Neutrophils Percent Auto 56.6 % (50-75); Platelet Count 139 X10^3/uL (150-400); Red Cell Distribution Width 13.2 % (11.6-14.8)
[2021-03-21 11:13] LABS: Alanine Aminotransferase 43 IU/L (<35); Albumin 4.1 g/dL (3.5-5.0); Albumin Globulin Ratio 1.6 (1.0-2.8); Alkaline Phosphatase 109 U/L (38-126); Aspartate Aminotransferase 36 IU/L (14-36); Bilirubin Total 0.7 mg/dL (0.2-1.3); Blood Urea Nitrogen 12 mg/dL (7-17); Calcium 9.6 mg/dL (8.4-10.2); Carbon Dioxide 27 mmol/L (22-32); Chloride 102 mmol/L (98-107); Estimated Glomerular Filt Rate > 60.0 mL/min (>60); Globulin 2.6 g/dL (1.7-4.1); Glucose 130 mg/dL (80-110); HEMOLYSIS < 15 (0-50); Lipase 105 U/L (23-300); Potassium 3.7 mmol/L (3.4-5.1); Sodium 137 mmol/L (137-145); Total Protein 6.7 g/dL (6.3-8.2)
[2021-03-21 11:21] LABS: NT-proBNP (BNP-Adult 18+) 98 pg/mL (<450)
[2021-03-21 11:54] VITALS: BP 162/70; PULSE 60; RESP 16; O2SAT 99
== END 2021-03-21 11:55 | disposition home or self-care (01) ==
PROVIDERS: Emergency Provider Emergency Medicine; Family Provider Nurse Practitioner; PCP Family Medicine
DX: R60.0 Localized edema (principal); M25.572 Pain in left ankle and joints of left foot
CPT/HCPCS: 36415; 80053; 83690; 83880; 85025; 99283

== ENCOUNTER → 2021-04-13 17:33 | Outpatient (CLI) | payer MEDICARE, BC, SELFPAY ==
[2021-01-15 08:44] VITALS: BMI 25.9
--- NOTE | 2021-04-13 17:39 | DI.RAD.S_ITS ---
PROCEDURE: XR FINGER LT MIN 2V INDICATIONS: healing?, fracture of thumb TECHNIQUE: AP hand, 2 views of the left thumb acquired. COMPARISON: [facility], CR, XR FINGER LT MIN 2V, 03/19/2021, 16:09. FINDINGS: Bones: Subacute thumb distal phalanx shaft fracture. 1st IP joint degenerative change with prominent ossifications. Soft tissues: No suspicious soft tissue calcifications. IMPRESSION: Subacute thumb distal phalanx shaft fracture Dictated by: Calin Bui M.D. on 04/13/2021 at 18:01 Approved by: Calin Bui M.D. on 04/13/2021 at 18:02
== END ==
PROVIDERS: Family Provider Nurse Practitioner; PCP Family Medicine; Referring Provider Family Medicine; Visit Provider Family Medicine
DX: S62.525B Nondisplaced fracture of distal phalanx of left thumb, initial encounter for open fracture (principal); X58.XXXA Exposure to other specified factors, initial encounter
CPT/HCPCS: 73140

== ENCOUNTER → 2021-05-07 12:49 | Outpatient (CLI) | payer MEDICARE, BC, SELFPAY ==
[2021-01-15 08:44] VITALS: BMI 25.9
--- NOTE | 2021-05-07 12:50 | DI.MG.S_ITS ---
BILATERAL DIGITAL DIAGNOSTIC MAMMOGRAM 3D/2D: 05/07/2021 CLINICAL: Short follow up, due bilateral. Comparison is made to exams dated: 10/18/2020 mammogram, 05/12/2020 mammogram, 05/01/2020 mammogram, 04/29/2019 mammogram, 05/14/2019 mammogram, and 04/24/2018 mammogram - [facility]. The tissue of both breasts is heterogeneously dense. This may lower the sensitivity of mammography. There are grouped amorphous and coarse calcifications in the right breast at 12 o'clock middle depth. These are not significantly changed. Left breast coarse and dystrophic calcifications are increased. Left breast biopsy clip. No other significant masses, calcifications, or other findings are seen in either breast. IMPRESSION: PROBABLY BENIGN The grouped amorphous and coarse calcifications in the right breast resemble a degenerating fibroadenoma and are probably benign. -A follow-up mammogram in 12 months is recommended to demonstrate long-term stability. Exam findings were conveyed to the patient. This exam was interpreted at Station ID: [id number]. NOTE: For mammograms, a report in lay terms will be sent to the patient. Approximately 15% of breast malignancies will not be visualized mammographically. In the management of a palpable breast mass, a negative mammogram must not discourage biopsy of a clinically suspicious lesion. Electronically Signed By: Bakari Feliciano M.D. slc/:05/07/2021 13:40:50 copy to: AYLEEN CALI letter sent: Followup Recommended ACR BI-RADS Category 3: Probably benign [id number]
== END ==
PROVIDERS: Family Provider Nurse Practitioner; PCP Family Medicine; Referring Provider Family Medicine; Visit Provider Family Medicine
DX: R92.8 Other abnormal and inconclusive findings on diagnostic imaging of breast (principal); R92.1 Mammographic calcification found on diagnostic imaging of breast
CPT/HCPCS: 77066; G0279

== ENCOUNTER → 2021-05-21 11:24 | Outpatient (CLI) | payer MEDICARE, BC, SELFPAY ==
[2021-01-15 08:44] VITALS: BMI 25.9
[2021-05-21 12:31] LABS: Add Manual Diff / Slide Review NO; Basophils Absolute Auto 0 /uL (0-100); Basophils Percent Auto 0.3 % (0-2); Eosinophils Absolute Auto 100 /uL (0-450); Eosinophils Percent Auto 0.8 % (2-4); Hematocrit 43.3 % (36-46); Hemoglobin 14.7 g/dL (12.0-16.0); Lymphocytes Absolute Auto 2100 /uL (1100-4500); Lymphocytes Percent Auto 31.5 % (25-40); Mean Corpuscular HGB Conc 33.9 % (30-36); Mean Corpuscular Hemoglobin 31.3 PG (26-34); Mean Corpuscular Volume 92.4 fL (80-100); Monocytes Absolute Auto 800 /uL (0-900); Monocytes Percent Auto 11.4 % (3-14); Neutrophils Absolute Auto 3800 /uL (1500-7000); Platelet Count 163 X10^3/uL (150-400); Red Blood Cell Count 4.69 X10^6/uL (4.0-5.2); White Blood Cell Count 6.8 X10^3/uL (4.5-11.0)
[2021-05-21 12:44] LABS: INR 1.1 (0.9-1.3); Prothrombin Time 12.1 SECONDS (10.1-12.7)
[2021-05-21 12:46] LABS: PTT Partial Thromboplastin Tim 40 SECONDS (26.4-36.2)
== END ==
PROVIDERS: Family Provider Nurse Practitioner; PCP Family Medicine; Referring Provider Family Medicine; Visit Provider Family Medicine
DX: R23.8 Other skin changes (principal); R60.0 Localized edema
CPT/HCPCS: 36415; 85025; 85610; 85730

== ENCOUNTER → 2021-06-22 09:45 | Outpatient (CLI) | payer MEDICARE, BC, SELFPAY ==
[2021-01-15 08:44] VITALS: BMI 25.9
[2021-06-22 10:53] LABS: BUN Creatinine Ratio 24.5 (6-22); Blood Urea Nitrogen 13 mg/dL (7-17); Calcium 9.6 mg/dL (8.4-10.2); Carbon Dioxide 27 mmol/L (22-32); Chloride 103 mmol/L (98-107); Estimated Glomerular Filt Rate > 60.0 mL/min (>60); Glucose 131 mg/dL (80-110); HEMOLYSIS < 15 (0-50); Potassium 4.2 mmol/L (3.4-5.1); Sodium 136 mmol/L (137-145)
== END ==
PROVIDERS: Family Provider Nurse Practitioner; PCP Family Medicine; Referring Provider Family Medicine; Visit Provider Family Medicine
DX: E11.9 Type 2 diabetes mellitus without complications (principal); S70.361A Insect bite (nonvenomous), right thigh, initial encounter; W57.XXXA Bitten or stung by nonvenomous insect and other nonvenomous arthropods, initial encounter
CPT/HCPCS: 36415; 80048

== ENCOUNTER → 2021-11-27 07:11 | Outpatient (CLI) | payer MEDICARE, BC, SELFPAY ==
[2021-09-06 11:19] VITALS: BMI 25.9
[2021-11-27 08:45] LABS: Hemoglobin A1C% w Est Avg Glu 9.3 % (4.0-6.0)
[2021-11-27 09:04] LABS: Alanine Aminotransferase 50 IU/L (<35); Albumin 3.8 g/dL (3.5-5.0); Albumin Globulin Ratio 1.7 (1.0-2.8); Alkaline Phosphatase 116 U/L (38-126); Aspartate Aminotransferase 28 IU/L (14-36); BUN Creatinine Ratio 17.7 (6-22); Bilirubin Total 0.8 mg/dL (0.2-1.3); Blood Urea Nitrogen 11 mg/dL (7-17); Calcium 9.3 mg/dL (8.4-10.2); Carbon Dioxide 33 mmol/L (22-32); Chloride 102 mmol/L (98-107); Cholesterol 134 mg/dL (140-199); Estimated Glomerular Filt Rate > 60.0 mL/min (>60); Globulin 2.3 g/dL (1.7-4.1); Glucose 253 mg/dL (80-110); HDL Cholesterol 44 mg/dL (40-60); HEMOLYSIS < 15 (0-50); LDL Cholesterol Calculated 74 mg/dL (<100); Potassium 3.9 mmol/L (3.4-5.1); Sodium 135 mmol/L (137-145); Total Protein 6.1 g/dL (6.3-8.2); Triglycerides 81 mg/dL (35-150)
[2021-11-27 10:35] LABS: Creatinine Urine Random 66.5 mg/dL
[2021-11-27 10:39] LABS: Microalbumi Creatinin Ratio Ur 16.5 ug/mg CR (<30); Microalbumin Urine Random 1.1 mg/dL (0-1.6)
== END ==
PROVIDERS: Family Provider Nurse Practitioner; PCP Family Medicine; Referring Provider Family Medicine; Visit Provider Family Medicine
DX: E11.9 Type 2 diabetes mellitus without complications (principal); E78.5 Hyperlipidemia, unspecified; I10 Essential (primary) hypertension
CPT/HCPCS: 36415; 80053; 80061; 82043; 82570; 83036

== ENCOUNTER → 2021-12-05 13:55 | Outpatient (CLI) | payer MEDICARE, BC, SELFPAY ==
[2021-09-06 11:19] VITALS: BMI 25.9
--- NOTE | 2021-12-20 08:04 | P.HOLT.S_ITS ---
Interface Control Officer Report Referral & Results Date Patient Seen: 12/05/21 Requesting provider: Kaylin Cerda Indication: Palpitations Duration of monitoring (days): 7 Diary information: There were 6 patient triggered events and 4 patient diary entries Patient triggered events were variably associated with (within 45 seconds) sinus rhythm, PACs, and SVT Patient diary events were associated with (within 45 seconds) sinus rhythm and PACs Data: Minimum heart rate identified was 57 beats per minute at 05:25 on 12/07/2021 Maximum sinus heart rate was 105 beats per minute at 21:18 on 12/09/2021 There was 1 episode of second-degree AV block Mobitz type 1 the resulted in a heart rate of 38 beats per minute which was identified by the computer as the overall low heart rate Approximately 15.7% of identified beats were supraventricular ectopic in origin which would classify them as frequent Less than 1% of I identified beats were ventricular ectopic in origin which would classify them as rare There were 41 runs of SVT/atrial tachycardia with the fastest being 10 beats at a rate of 143 beats per minute the longest being 17 beats at a rate of 90 beats per minute which strongly suggest more atrial tachycardia than true SVT There was 1 run of nonsustained ventricular tachycardia that was 8 beats in duration Impression: 7 day panel monitor demonstrating frequent PACs and that is probably the source of patient's palpitations Single run of nonsustained monomorphic ventricular tachycardia as above as well as very rare very brief runs of either SVT or atrial tachycardia or both Clinical correlation suggested
== END ==
PROVIDERS: Family Provider Nurse Practitioner; PCP Family Medicine; Referring Provider Family Medicine; Visit Provider Family Medicine
DX: R00.2 Palpitations (principal)
CPT/HCPCS: 93242; 93244

== ENCOUNTER → 2021-12-31 07:08 | Outpatient (CLI) | payer MEDICARE, BC, SELFPAY ==
[2021-09-06 11:19] VITALS: BMI 25.9
[2021-12-31 09:00] LABS: Estimated Glomerular Filt Rate > 60.0 mL/min (>60)
== END ==
PROVIDERS: Family Provider Nurse Practitioner; PCP Family Medicine; Referring Provider Neurological Surgery; Visit Provider Neurological Surgery
DX: Z01.812 Encounter for preprocedural laboratory examination (principal)
CPT/HCPCS: 36415; 82565

== ENCOUNTER → 2022-01-14 16:47 | Outpatient (CLI) | payer MEDICARE, BC, SELFPAY ==
[2021-09-06 11:19] VITALS: BMI 25.9
--- NOTE | 2022-01-14 | DI.MRI.S_ITS ---
PROCEDURE: MR HEAD/BRAIN WO/W CON INDICATIONS: Benign neoplasm of meninges, unspecified TECHNIQUE: Noncontrast axial T1 spin echo, axial T2 fast spin echo, sagittal and axial FLAIR, coronal T2 fast spin echo, axial gradient echo, axial diffusion and ADC through the brain. After the administration of contrast, axial and coronal T1 spin echo with fat saturation through the brain. COMPARISON: [facility], MR, BRAIN (IAC) W&WO CONTRAST, 10/15/2017, 15:25. [facility], MR, BRAIN (IAC) W AND WO CONTRAST, 04/26/2011, 19:43. [facility], CT, CT HEAD/BRAIN WO CON, 07/01/2020, 9:05. FINDINGS: Image quality: Excellent. CSF spaces: Basal cisterns are patent. No extra-axial fluid collections. Ventricles are normal in size and shape. Brain: Along the anterior aspect of the left frontal lobe, there is again seen an extra-axial mass that today measures up to 9 mm, as on series 13, image 99. This has slowly progressed over time. In 2010 it measured 5 mm and in 2016 it measured 7 mm. No additional masses or areas of abnormal enhancement can be seen. No midline shift. No intracranial bleeds. There is cerebral volume loss for age. There is periventricular white matter chronic small vessel ischemic change. The brainstem appears normal. Diffusion-weighted images demonstrate no acute ischemic insults. No chronic ischemic insults. Normal intravascular flow voids are present. Skull and face: Calvarial marrow is normal in signal. Incidental note is made of hyperostosis frontalis. This is not considered to be pathologic in a woman of this age. Orbits appear normal. Note is made of bilateral lens replacements. Sinuses: Sinuses and mastoids appear clear. 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 Dictated by: Cotsa Knutson M.D. on 01/14/2022 at 17:02 Approved by: Costa Knutson M.D. on 01/14/2022 at 17:06
== END ==
PROVIDERS: Family Provider Nurse Practitioner; PCP Family Medicine; Referring Provider Neurological Surgery; Visit Provider Neurological Surgery
DX: D32.9 Benign neoplasm of meninges, unspecified (principal)
CPT/HCPCS: 70553; A9579

== ENCOUNTER 2022-01-27 18:21 | Emergency (ER) | payer MEDICARE, BC, SELFPAY ==
[2021-09-06 11:19] VITALS: BMI 25.9
[2022-01-27 18:27] VITALS: BP 196/105; PULSE 80; RESP 18; TEMP 36.9; O2SAT 99
--- NOTE | 2022-01-27 19:26 | ED.WOUNDLAC ---
HPI - Wound/Laceration General Chief Complaint: Wound/Laceration Stated Complaint: Fall, Left Arm Laceration Time Seen by Provider: 01/27/22 19:14 Source: patient Mode of arrival: Ambulatory History of Present Illness HPI narrative: Patient is an 81-year-old female not on anticoagulation who is here for evaluation of injuries that she sustained to her left upper arm and her left knee. She states that she slipped while going up some stairs landing on her left side. Did not hit her head. No loss of consciousness. Has been ambulatory. Related Data Home Medications Medication Instructions Recorded Confirmed CA PANTOTHENATE/FOLIC ACID/VIT 1 tab PO Q DAY #0 09/13/11 01/25/22 (MULTIVITAMIN) acidophilus 100 million 1 cap PO DAILY cap 05/26/19 01/25/22 cell-pectin, citrus 10 mg capsule (Probiotic Acidophilus-Pectin) vitamin d 1 cap PO DAILY 05/26/19 01/25/22 cranberry 500 mg capsule 4,200 mg PO DAILY 06/05/20 01/25/22 azelastine 137 mcg (0.1 %) nasal 1 spray INTRANASAL BID 01/22/21 01/25/22 spray aerosol cetirizine 10 mg tablet 5 mg PO DAILY PRN 01/22/21 01/25/22 ipratropium bromide 21 mcg (0.03 2 spray INTRANASAL BID 01/22/21 01/25/22 %) nasal spray Previous Rx's Medication Instructions Recorded blood-glucose meter (Blood Glucose #1 each 01/10/20 Monitoring) estradiol 0.5 g VAGINAL 2XW #42.5 g 04/09/21 lancets 28 gauge (TechLITE Lancets) See Rx Instructions .ROUTE 05/04/21 .COMPLEX #100 ea blood sugar diagnostic (Glucocard See Rx Instructions .ROUTE 05/11/21 Expression) .COMPLEX #100 ea atorvastatin 40 mg tablet 40 mg PO BEDTIME #90 tab 06/11/21 clobetasol 0.05 % topical cream See Rx Instructions .ROUTE 09/20/21 .COMPLEX #120 g omeprazole 20 mg capsule,delayed 20 mg PO DAILY #90 cap 11/06/21 release spironolactone 25 mg tablet See Rx Instructions .ROUTE 11/20/21 .COMPLEX #90 tab atenolol 50 mg tablet 50 mg PO BID #180 tab 12/14/21 semaglutide 14 mg tablet 14 mg PO DAILY #90 tab 01/25/22 Allergies Allergy/AdvReac Type Severity Reaction Status Date / Time Sulfa (Sulfonamide Allergy Intermediate HIVES Verified 01/25/22 10:03 Antibiotics) lisinopril Allergy Mild COUGH Verified 01/25/22 10:03 ARB-Angiotensin Receptor AdvReac Severe syncope, Verified 01/25/22 10:03 Antagonist diarrhea metformin AdvReac Intermediate Diarrhea Verified 01/25/22 10:03 Review of Systems Constitutional Constitutional: Reports as per HPI and Reports system reviewed and no additional complaints, except as documented Musculoskeletal Musculoskeletal: Reports system reviewed and no additional complaints, except as documented Integumentary/Breasts Skin/Breast: Reports system reviewed and no additional complaints, except as documented and Reports as per HPI Hematologic/Lymphatic On Anticoagulants: No Patient History Medical History Abnormal mammogram of right breast (~04/2020) Acid reflux Angular cheilitis Chicken pox (~1949) Chronic vaginitis (04/01/16) Contusion of left thumb Diarrhea Dizziness Edema of both lower legs Edema of foot (11/01/15) Esophagitis Frequent UTI Green nails Hearing loss House dust mite allergy Hyperlipidemia Hypertension Hypomagnesemia Hyponatremia Lichen sclerosus of female genitalia Measles (~1949) Mumps (~1949) Obstructive sleep apnea hypopnea, moderate Onychomycosis Oral thrush Osteoarthritis of left hip (04/01/16) Overweight (BMI 25.0-29.9) Palpitations Pollen allergy Shortness of breath on exertion Snoring Syncope Thumb fracture Thumb laceration Venous telangiectasia of lower extremity Vision disorder Vulvitis Surgical History Anesthesia History of left hip replacement Status post hernia repair (~1964) Family History Brother Age: 83 Detached retina Father Cancer Loud snoring Mother Hypertension Social History household members: spouse Smoking Status: Never smoker alcohol intake: current substance use type: does not use eating out: rarely or never Type(s) of exercise: bicycling Smoking Status: Never smoker alcohol intake frequency: a few times a month Substance Use Type: does not use Exam Initial Vital Signs Initial Vital Signs: Vital Signs Temperature 98.5 F 01/27/22 18:27 Pulse Rate 80 01/27/22 18:27 Respiratory Rate 18 01/27/22 18:27 Blood Pressure 196/105 H 01/27/22 18:27 Pulse Oximetry 99 01/27/22 18:27 Skin Other: Patient with a large skin tear to the lateral aspect of her left upper arm. No active bleeding. She also has abrasions on the anterior aspect of the left knee. Neuro Gait: normal gait Motor: muscle tone normal throughout Extrem Other: Patient can move her left shoulder left elbow left wrist without discomfort. Has been ambulatory. The left knee and left hip and left ankle unremarkable. She has no right-sided extremity discomfort. Course Orders Ordered: Discontinued Medications Bacitracin (Bacitracin Oint 0.9 Gm Pckt) 1 applic TOP NOW ONE Stop: 01/27/22 19:26 Last Admin: 01/27/22 19:43 Dose: 1 applic Documented by: SWATHI Vital Signs Vital signs: Vital Signs - 8 hr 01/27/22 18:27 01/27/22 20:06 Temperature 98.5 F Pulse Rate 80 71 Respiratory Rate 18 14 Blood Pressure 196/105 H 174/81 H Pulse Oximetry 99 96 MDM - Wound/Laceration MDM Narrative Medical decision making narrative: The abrasions on her left knee need no other intervention except for cleaning. The skin tear was approximated with Steri-Strips by nursing staff. There is no active bleeding. She is ambulatory. I feel that we can hold on radiologic studies for now. This was a mechanical fall she tripped on up some stairs. She is given care instructions and return precautions. She expressed understanding and agreement. Discharge Plan Departure Patient Disposition: Home Clinical Impression: Skin tear of left upper extremity, Abrasion of skin Activity Restrictions/Additional Instructions: You can shower like normal. He can use soap and water over the area. You can use topical antibiotic ointment. Contact your primary doctor for a follow-up. Return to the emergency department for any new or worsening symptoms. Prescriptions: No Action CA PANTOTHENATE/FOLIC ACID/VIT (MULTIVITAMIN) 1 tab PO Q DAY Qty: 0 0RF (DME) blood-glucose meter [Blood Glucose Monitoring] Kit See Rx Instructions .ROUTE .MEDSUPPLY Qty: 1 0RF Rx Instructions: Test blood sugar once a day, Brand per insurance estradiol 0.01 % (0.1 mg/gram) cream 0.5 g vaginal 2XW Qty: 42.5 3RF lancets [TechLITE Lancets] 28 gauge misc See Rx Instructions .ROUTE .COMPLEX Qty: 100 2RF Dose Instruction: DIRECTED TO TEST BLOOD SUGAR DAILY Rx Instructions: DIRECTED TO TEST BLOOD SUGAR DAILY blood sugar diagnostic [Glucocard Expression] Strip See Rx Instructions .ROUTE .COMPLEX Qty: 100 2RF Dose Instruction: USE DIRECTED TO TEST BLOOD SUGAR ONE A DAY Rx Instructions: USE DIRECTED TO TEST BLOOD SUGAR ONE A DAY atorvastatin 40 mg tablet 40 mg PO BEDTIME Qty: 90 3RF clobetasol 0.05 % cream See Rx Instructions .ROUTE .COMPLEX Qty: 120 2RF Dose Instruction: APPLY TO AFFECTED AREA TWICE A DAY Rx Instructions: APPLY TO AFFECTED AREA TWICE A DAY omeprazole 20 mg capsule,delayed release(DR/EC) 20 mg PO DAILY Qty: 90 3RF spironolactone 25 mg tablet See Rx Instructions .ROUTE .COMPLEX Qty: 90 0RF Dose Instruction: TAKE 1 TABLET BY MOUTH DAILY Rx Instructions: TAKE 1 TABLET BY MOUTH DAILY semaglutide 14 mg tablet 14 mg PO DAILY Qty: 90 0RF vitamin d 25 mcg capsule 1 cap PO DAILY 0RF acidophilus-pectin, citrus [Probiotic Acidophilus-Pectin] 100 million cell-10 mg capsule 1 cap PO DAILY 0RF atenolol 50 mg tablet 50 mg PO BID Qty: 180 1RF cetirizine 10 mg tablet 5 mg PO DAILY PRN0RF azelastine 137 mcg (0.1 %) aerosol,spray 1 spray intranasal BID 0RF Rx Instructions: administer into each nostril ipratropium bromide 0.03 % spray,non-aerosol 2 spray intranasal BID 0RF Rx Instructions: administer into each nostril cranberry 500 mg Capsule 4,200 mg PO DAILY 0RF Referrals: Vita Escudero MD [Primary Care Provider] -
[2022-01-27] MEDS: BACITRACIN OINT 0.9 GM PCKT 1 APPLIC TOP (19:43)
[2022-01-27 20:06] VITALS: BP 174/81; PULSE 71; RESP 14; O2SAT 96
== END 2022-01-27 20:08 | disposition home or self-care (01) ==
PROVIDERS: Emergency Provider Emergency Medicine; Family Provider Nurse Practitioner; PCP Family Medicine
DX: S41.112A Laceration without foreign body of left upper arm, initial encounter (principal); S80.212A Abrasion, left knee, initial encounter; W10.9XXA Fall (on) (from) unspecified stairs and steps, initial encounter
CPT/HCPCS: 99282

== ENCOUNTER → 2022-03-14 09:20 | Outpatient (CLI) | payer MEDICARE, BC, SELFPAY ==
[2022-01-29 08:53] VITALS: BMI 25.9
[2022-03-14 10:11] LABS: Cholesterol 127 mg/dL (140-199); HDL Cholesterol 28 mg/dL (40-60); LDL Cholesterol Calculated 78 mg/dL (<100); Triglycerides 107 mg/dL (35-150)
[2022-03-14 10:13] LABS: Hemoglobin A1C% w Est Avg Glu 7.1 % (4.0-6.0)
== END ==
PROVIDERS: Family Provider Nurse Practitioner; PCP Family Medicine; Referring Provider Family Medicine; Visit Provider Family Medicine
DX: E11.9 Type 2 diabetes mellitus without complications (principal); E11.65 Type 2 diabetes mellitus with hyperglycemia; R19.7 Diarrhea, unspecified; E78.5 Hyperlipidemia, unspecified; I10 Essential (primary) hypertension
CPT/HCPCS: 36415; 80061; 83036

== ENCOUNTER → 2022-03-18 16:08 | Outpatient (CLI) | payer MEDICARE, BC, SELFPAY ==
[2022-01-29 08:53] VITALS: BMI 25.9
== END ==
PROVIDERS: Family Provider Nurse Practitioner; PCP Family Medicine; Visit Provider Physician Assistant
DX: R30.0 Dysuria (principal)
CPT/HCPCS: 87086

== ENCOUNTER → 2022-03-26 10:45 | Outpatient (CLI) | payer MEDICARE, BC, SELFPAY ==
[2022-01-29 08:53] VITALS: BMI 25.9
[2022-03-26 12:14] LABS: Clostridium Difficile Tox PCR Negative for C. diff (Negative)
== END ==
PROVIDERS: Family Provider Nurse Practitioner; PCP Family Medicine; Referring Provider Family Medicine; Visit Provider Family Medicine
DX: R19.7 Diarrhea, unspecified (principal)
CPT/HCPCS: 87045; 87177; 87329; 87493; 87899

== ENCOUNTER 2022-04-04 12:04 | Emergency (ER) | payer MEDICARE, BC, SELFPAY ==
[2022-01-29 08:53] VITALS: BMI 25.9
[2022-04-04 12:36] VITALS: BP 161/82; PULSE 95; RESP 15; TEMP 36.2; O2SAT 97; BMI 22.8
--- NOTE | 2022-04-04 12:45 | DI.RAD.S_ITS ---
PROCEDURE: XR ACUTE ABDOMEN SERIES INDICATIONS: no BM for a month TECHNIQUE: One view chest and two views of the abdomen were acquired. COMPARISON: None. FINDINGS: Surgical changes and devices: Patient is status post left total hip arthroplasty. Chest: Lungs are clear. Heart size is normal. No pleural effusions. No pneumoperitoneum. Abdomen: Moderate amount of fecal matter throughout the colon is seen extending to rectum. No gross peritoneal free air. No suspicious calcifications. Visualized solid organ contours appear normal. Bones: No suspicious bony lesions. IMPRESSION: Moderate constipation. No gross free air. No acute cardiopulmonary pathology. Dictated by: Nathan Ramirez M.D. on 04/04/2022 at 13:32 Approved by: Nathan Ramirez M.D. on 04/04/2022 at 13:32
--- NOTE | 2022-04-04 15:46 | DI.CT.S_ITS ---
PROCEDURE: CT ABDOMEN PELVIS WO CON INDICATIONS: constipation TECHNIQUE: Noncontrast 5 mm thick sections acquired from the diaphragms to the symphysis. 5 mm coronal and sagittal reformats were then performed. For radiation dose reduction, the following was used: automated exposure control, adjustment of mA and/or kV according to patient size. COMPARISON: [facility], , RENAL COMPLETE, 08/17/2015, 10:53. FINDINGS: Image quality: Excellent. ABDOMEN: Lung bases: Lung bases are clear. Heart size is normal. Small hiatal hernia. Solid organs: Liver is normal in size. Gallbladder is normal . Pancreas is normal in contours. Spleen is normal in size. No adrenal nodules. Kidneys are normal in size, without hydronephrosis or nephrolithiasis. There is a 5.2 cm simple appearing cyst in the inferior pole of the left kidney. There is mild right renal pelviectasis and ureterectasis. Mild dilation of ureter to the level of SI joint. No obstructive masses or stones. Peritoneum and bowel: There is a large amount of stool throughout the colon. No bladder wall thickening. Unenhanced bowel loops demonstrate normal wall thickness and caliber. No free fluid or air. Nodes and vessels: No retroperitoneal or mesenteric adenopathy by size criteria. Aorta and inferior vena cava are normal in caliber. Moderate atherosclerosis. Miscellaneous: No ventral hernias. PELVIS: Genitourinary: Bladder is mildly distended. Bladder wall appears mildly thickened anteriorly. Miscellaneous: No inguinal hernias or adenopathy. Bones: Lucencies in L5 and L4 are probably related to intra osseous hemangiomas. No compression fractures. No vertebral body compression fractures. Left hip arthroplasty. IMPRESSION: 1. A large amount of stool in colon consistent with constipation. 2. Mild right renal pelviectasis and ureterectasis with the right ureter mildly dilated to the level of sacroiliac joint. No obstructive masses or stonees. 3. Mild thickening in anterior bladder wall. Recommend urology consultation and cystoscopy for follow-up. 4. A large simple appearing cyst in the inferior pole of the left kidney. Dictated by: Tan Kim M.D. on 04/04/2022 at 15:34 Approved by: Tan Kim M.D. on 04/04/2022 at 15:45
--- NOTE | 2022-04-04 15:50 | ED.ABDPAIN ---
HPI - Abdominal Pain <César Jett PA-C - Last Filed: 04/04/22 18:59> General Chief Complaint: Abdominal Pain Stated Complaint: Impacted Crap Time Seen by Provider: 04/04/22 15:38 Source: patient Mode of arrival: Ambulatory History of Present Illness HPI narrative: Patient is an 81-year-old female who presents to the ED complaining of abdominal pain. She states that she has not been able to have bowel movement for the past few weeks. She states for the past 4 months she is having difficulty with having regular bowel movements of which she has had some occasional watery diarrhea. She is having abdominal discomfort and pain with gas and bloating for the past few days. Today the pain gets more severe and that is a result for her to come to the ED for evaluation. She has never had difficulty or required use of laxative in the past. No reported fever nausea vomiting. No recent trauma or fall reported. No relevant past medical history. Related Data Home Medications Medication Instructions Recorded Confirmed CA PANTOTHENATE/FOLIC ACID/VIT 1 tab PO Q DAY #0 09/13/11 04/05/22 (MULTIVITAMIN) acidophilus 100 million 1 cap PO DAILY cap 05/26/19 04/05/22 cell-pectin, citrus 10 mg capsule (Probiotic Acidophilus-Pectin) vitamin d 1 cap PO DAILY 05/26/19 04/05/22 cranberry 500 mg capsule 4,200 mg PO DAILY 06/05/20 04/05/22 azelastine 137 mcg (0.1 %) nasal 1 spray INTRANASAL BID 01/22/21 04/05/22 spray aerosol ipratropium bromide 21 mcg (0.03 2 spray INTRANASAL BID 01/22/21 04/05/22 %) nasal spray Previous Rx's Medication Instructions Recorded blood-glucose meter (Blood Glucose #1 each 01/10/20 Monitoring) estradiol 0.5 g VAGINAL 2XW #42.5 g 04/09/21 lancets 28 gauge (TechLITE Lancets) See Rx Instructions .ROUTE 05/04/21 .COMPLEX #100 ea blood sugar diagnostic (Glucocard See Rx Instructions .ROUTE 05/11/21 Expression) .COMPLEX #100 ea atorvastatin 40 mg tablet 40 mg PO BEDTIME #90 tab 06/11/21 omeprazole 20 mg capsule,delayed 20 mg PO DAILY #90 cap 11/06/21 release semaglutide 14 mg tablet 14 mg PO DAILY #90 tab 01/25/22 spironolactone 25 mg tablet See Rx Instructions .ROUTE 02/13/22 .COMPLEX #90 tab atenolol 50 mg tablet 50 mg PO BID #180 tab 03/11/22 clobetasol 0.05 % topical cream See Rx Instructions .ROUTE 04/01/22 .COMPLEX #120 g Allergies Allergy/AdvReac Type Severity Reaction Status Date / Time Sulfa (Sulfonamide Allergy Intermediate HIVES Verified 04/05/22 14:14 Antibiotics) lisinopril Allergy Mild COUGH Verified 04/05/22 14:14 ARB-Angiotensin Receptor AdvReac Severe syncope, Verified 04/05/22 14:14 Antagonist diarrhea metformin AdvReac Intermediate Diarrhea Verified 04/05/22 14:14 Review of Systems <César Jett PA-C - Last Filed: 04/04/22 18:59> Review of Systems ROS Unobtainable: All systems reviewed & are unremarkable except as noted in HPI and below Constitutional Constitutional: Denies chills, Denies fatigue, Denies fever(s), Denies frequent falls, Denies lethargy and Denies weakness Eyes Eyes: Denies change in vision, Denies eye discharge, Denies irritation and Denies loss of vision ENT Ears, Nose, Mouth, and Throat: Denies change in voice, Denies dizziness, Denies neck pain, Denies sore throat and Denies throat swelling Cardiovascular Cardiovascular: Denies chest pain, Denies irregular heart rhythm, Denies lightheadedness, Denies palpitations, Denies dyspnea, Denies dyspnea on exertion and Denies orthopnea Respiratory Respiratory: Denies cough, Denies dyspnea, Denies dyspnea on exertion and Denies wheezing Gastrointestinal Gastrointestinal: Reports abdominal pain, Denies change in bowel habits, Reports change in stool character, Reports constipation, Reports cramping, Reports diarrhea, Denies nausea and Denies vomiting Genitourinary Genitourinary: Denies hematuria, Denies flank pain, Denies urinary incontinence and Denies urinary urgency Musculoskeletal Musculoskeletal: Denies back pain, Denies muscle weakness, Denies neck pain, Denies numbness and Denies tingling Integumentary/Breasts Skin/Breast: Denies pruritus, Denies erythema, Denies rash and Denies wounds Neurologic Neurologic: Denies behavioral changes, Denies confusion, Denies dizziness, Denies frequent falls, Denies loss of vision, Denies numbness, Denies tingling and Denies weakness Psychiatric Psychiatric: Denies anxiety, Denies behavioral changes, Denies confusion, Denies depression, Denies homicidal ideation and Denies suicidal ideation Endocrine Endocrine: Denies fatigue, Denies flushing and Denies palpitations Hematologic/Lymphatic Hematologic/Lymphatic: Denies easy bruising Allergic/Immunologic Allergic/Immunologic: Denies urticaria, Denies throat swelling and Denies wheezing Patient History <César Jett PA-C - Last Filed: 04/04/22 18:59> Medical History Abnormal mammogram of right breast (~04/2020) Acid reflux Angular cheilitis Chicken pox (~1949) Chronic vaginitis (04/01/16) Contusion of left thumb Diarrhea Dizziness Edema of both lower legs Edema of foot (11/01/15) Esophagitis Frequent UTI Green nails Hearing loss House dust mite allergy Hyperlipidemia Hypertension Hypomagnesemia Hyponatremia Lichen sclerosus of female genitalia Measles (~1949) Mumps (~1949) Obstructive sleep apnea hypopnea, moderate Onychomycosis Oral thrush Osteoarthritis of left hip (04/01/16) Overweight (BMI 25.0-29.9) Palpitations Pollen allergy Shortness of breath on exertion Snoring Syncope Thumb fracture Thumb laceration Venous telangiectasia of lower extremity Vision disorder Vulvitis Surgical History Anesthesia History of left hip replacement Status post hernia repair (~1964) Family History Brother Age: 83 Detached retina Father Cancer Loud snoring Mother Hypertension Social History household members: spouse Smoking Status: Never smoker alcohol intake: current substance use type: does not use eating out: rarely or never Type(s) of exercise: bicycling Smoking Status: Never smoker alcohol intake frequency: holidays/special occasions only Substance Use Type: does not use Exam <César Jett PA-C - Last Filed: 04/04/22 18:59> Initial Vital Signs Initial Vital Signs: Vital Signs Temperature 97.1 F L 04/04/22 12:36 Pulse Rate 95 H 04/04/22 12:36 Respiratory Rate 15 04/04/22 12:36 Blood Pressure 161/82 H 04/04/22 12:36 Pulse Oximetry 97 04/04/22 12:36 Const General: cooperative and healthy appearing Nutritional Appearance: average body habitus Orientation: Orientation [facility] Head: normal to inspection, normocephalic and atraumatic Ears: hearing grossly normal bilaterally and external ears normal Nose: external nose normal and nares normal Face and sinus: normal facial exam and sinuses nontender Mouth: oral mucosae normal Teeth and gingiva: dentition normal Eyes Pupils: PERRL Resp Effort & Inspection: normal respiratory effort and able to speak in complete sentences Auscultation: clear to auscultation bilaterally Percussion: percussion normal Cardio Palpation: normal PMI Rate: regular rate Rhythm: regular rhythm Heart Sounds: S1 normal and S2 normal GI Inspection: distended Palpation: soft and tender Percussion: normal to percussion Auscultation: normal bowel sounds Skin General: no rashes or lesions noted <Charu Britt DO - Last Filed: 04/07/22 08:16> Initial Vital Signs Initial Vital Signs: Vital Signs Temperature 97.1 F L 04/04/22 12:36 Pulse Rate 95 H 04/04/22 12:36 Respiratory Rate 15 04/04/22 12:36 Blood Pressure 161/82 H 04/04/22 12:36 Pulse Oximetry 97 04/04/22 12:36 Course <César Jett PA-C - Last Filed: 04/04/22 18:59> Orders Ordered: ED Orders 04/04/22 12:45 XR acute abdomen series Stat 04/04/22 15:46 CT abdomen pelvis wo con Stat UA Complete [Urinalysis and Microscopic] Stat 04/04/22 16:10 CBC Auto Diff [Complete Blood Count AUTO DIFF] Stat CMP [Comprehensive Metabolic Panel] Stat Reevaluation(s) Reevaluation #1: Patient was unable to obtain UA and requested to be discharged home. I advised her that if she starts having symptoms of dysuria or UTI related symptoms that she can return to the ED or follow-up with her PCP. Patient will be discharged home Vital Signs Vital signs: Vital Signs - 8 hr 04/04/22 12:36 Temperature 97.1 F L Pulse Rate 95 H Respiratory Rate 15 Blood Pressure 161/82 H Pulse Oximetry 97 <Charu Britt DO - Last Filed: 04/07/22 08:16> Orders Ordered: ED Orders 04/04/22 12:45 XR acute abdomen series Stat 04/04/22 15:46 CT abdomen pelvis wo con Stat UA Complete [Urinalysis and Microscopic] Stat 04/04/22 16:10 CBC Auto Diff [Complete Blood Count AUTO DIFF] Stat CMP [Comprehensive Metabolic Panel] Stat Vital Signs Vital signs: Vital Signs - 8 hr 04/04/22 12:36 Temperature 97.1 F L Pulse Rate 95 H Respiratory Rate 15 Blood Pressure 161/82 H Pulse Oximetry 97 MDM - Abdominal Pain <César Jett PA-C - Last Filed: 04/04/22 18:59> Differential Diagnosis Differential diagnosis: Likely constipation Lab Data Result diagrams: 04/04/22 16:10 04/04/22 16:10 Labs: Lab Results 04/04/22 04/04/22 Range/Units 16:10 16:10 WBC 6.3 (4.5-11.0) X10^3/uL RBC 4.61 (4.0-5.2) X10^6/uL Hgb 14.4 (12.0-16.0) g/dL Hct 41.0 (36-46) % MCV 88.9 (80-100) fL MCH 31.3 (26-34) PG MCHC 35.2 (30-36) % RDW 13.2 (11.6-14.8) % Plt Count 175 (150-400) X10^3/uL Neut % (Auto) 58.5 (50-75) % Lymph % (Auto) 28.6 (25-40) % Fisher % (Auto) 12.2 (3-14) % Eos % (Auto) 0.3 L (2-4) % Baso % (Auto) 0.4 (0-2) % Neut # (Auto) 3700 (9213-7065) /uL Lymph # (Auto) 1800 (2950-1313) /uL Fisher # (Auto) 800 (0-900) /uL Eos # (Auto) 0 (0-450) /uL Baso # (Auto) 0 (0-100) /uL Reactive Lymphocytes 2+ H RBC Morphology Normal morphology Sodium 133 L (137-145) mmol/L Potassium 4.0 (3.4-5.1) mmol/L Chloride 100 (98-107) mmol/L Carbon Dioxide 23 (22-32) mmol/L BUN 13 (7-17) mg/dL Creatinine 0.58 (0.52-1.04) mg/dL Estimated GFR > 60 (>60) mL/min BUN/Creatinine Ratio 22.4 H (6-22) Glucose 141 H (80-110) mg/dL Calcium 9.1 (8.4-10.2) mg/dL Total Bilirubin 1.6 H (0.2-1.3) mg/dL AST 34 (14-36) IU/L ALT 25 (<35) IU/L Alkaline Phosphatase 83 (38-126) U/L Total Protein 6.7 (6.3-8.2) g/dL Albumin 4.0 (3.5-5.0) g/dL Globulin 2.7 (1.7-4.1) g/dL Albumin/Globulin Ratio 1.5 (1.0-2.8) Imaging Data CT scan - abdomen/pelvis: Radiologist's Impression: [place] [address] CT Scan Report Signed Patient: Betsy Cordero MR#: [id number] : 1940 Acct:[id number] Age/Sex: 81 / F Date of Service: 04/04/22 Loc: ED Accession Number: [id number] ?? Procedure: CT abdomen pelvis wo con Ordering Provider: César Jett P.A-C PROCEDURE:? CT ABDOMEN PELVIS WO CON ? INDICATIONS:? constipation ? TECHNIQUE:? Noncontrast 5 mm thick sections acquired from the diaphragms to the symphysis.? 5 mm coronal and sagittal reformats were then performed.? For radiation dose reduction, the following was used:? automated exposure control, adjustment of mA and/or kV according to patient size.? ? COMPARISON:? [facility], , RENAL COMPLETE, 08/17/2015, 10:53. ? FINDINGS:? Image quality:? Excellent.? ? ABDOMEN:? Lung bases:? Lung bases are clear.? Heart size is normal.? Small hiatal hernia. ? Solid organs:? Liver is normal in size.? Gallbladder is normal .? Pancreas is normal in contours.? Spleen is normal in size.? No adrenal nodules.? Kidneys are normal in size, without hydronephrosis or nephrolithiasis.? ? There is a 5.2 cm simple appearing cyst in the inferior pole of the left kidney.? There is mild right renal pelviectasis and ureterectasis.? Mild dilation of ureter to the level of SI joint.? No obstructive masses or stones. ? Peritoneum and bowel:? There is a large amount of stool throughout the colon.? No bladder wall thickening.? Unenhanced bowel loops demonstrate normal wall thickness and caliber.? No free fluid or air.? ? Nodes and vessels:? No retroperitoneal or mesenteric adenopathy by size criteria.? Aorta and inferior vena cava are normal in caliber.? Moderate atherosclerosis. ? Miscellaneous:? No ventral hernias.? ? ? PELVIS:? Genitourinary:? Bladder is mildly distended.? Bladder wall appears mildly thickened anteriorly.? ? Miscellaneous:? No inguinal hernias or adenopathy.? ? Bones:? Lucencies in L5 and L4 are probably related to intra osseous hemangiomas.? No compression fractures.? No vertebral body compression fractures.? Left hip arthroplasty.? ? ? IMPRESSION:? ? 1. A large amount of stool in colon consistent with constipation. 2. Mild right renal pelviectasis and ureterectasis with the right ureter mildly dilated to the level of sacroiliac joint.? No obstructive masses or stonees. 3. Mild thickening in anterior bladder wall.? Recommend urology consultation and cystoscopy for follow-up. 4. A large simple appearing cyst in the inferior pole of the left kidney.? Dictated by: Tan Kim M.D. on 04/04/2022 at 15:34 ? ? Approved by: Tan Kim M.D. on 04/04/2022 at 15:45?? [facility] Narrative Medical decision making narrative: Patient was seen for abdominal pain today. Based on the CT findings with large amounts of stool patient should be able to have successful bowel movement with laxatives to start. A specific regimen will be outlined for patient to be sent home with with instructions regarding laxatives stool softeners fiber supplements and if required enemas. Patient was agreeable to be discharged home and would prefer to be discharged home. <Charu Lorenza, DO - Last Filed: 04/07/22 08:16> Lab Data Labs: Lab Results 04/04/22 04/04/22 Range/Units 16:10 16:10 WBC 6.3 (4.5-11.0) X10^3/uL RBC 4.61 (4.0-5.2) X10^6/uL Hgb 14.4 (12.0-16.0) g/dL Hct 41.0 (36-46) % MCV 88.9 (80-100) fL MCH 31.3 (26-34) PG MCHC 35.2 (30-36) % RDW 13.2 (11.6-14.8) % Plt Count 175 (150-400) X10^3/uL Neut % (Auto) 58.5 (50-75) % Lymph % (Auto) 28.6 (25-40) % Fisher % (Auto) 12.2 (3-14) % Eos % (Auto) 0.3 L (2-4) % Baso % (Auto) 0.4 (0-2) % Neut # (Auto) 3700 (9284-1172) /uL Lymph # (Auto) 1800 (3326-6560) /uL Fisher # (Auto) 800 (0-900) /uL Eos # (Auto) 0 (0-450) /uL Baso # (Auto) 0 (0-100) /uL Reactive Lymphocytes 2+ H RBC Morphology Normal morphology Sodium 133 L (137-145) mmol/L Potassium 4.0 (3.4-5.1) mmol/L Chloride 100 (98-107) mmol/L Carbon Dioxide 23 (22-32) mmol/L BUN 13 (7-17) mg/dL Creatinine 0.58 (0.52-1.04) mg/dL Estimated GFR > 60 (>60) mL/min BUN/Creatinine Ratio 22.4 H (6-22) Glucose 141 H (80-110) mg/dL Calcium 9.1 (8.4-10.2) mg/dL Total Bilirubin 1.6 H (0.2-1.3) mg/dL AST 34 (14-36) IU/L ALT 25 (<35) IU/L Alkaline Phosphatase 83 (38-126) U/L Total Protein 6.7 (6.3-8.2) g/dL Albumin 4.0 (3.5-5.0) g/dL Globulin 2.7 (1.7-4.1) g/dL Albumin/Globulin Ratio 1.5 (1.0-2.8) Discharge Plan Departure Patient Disposition: Home Clinical Impression: Abdominal pain Qualifiers: Abdominal location: periumbilical Qualified Code(s): R10.33 - Periumbilical pain Constipation Qualifiers: Constipation type: unspecified constipation type Qualified Code(s): K59.00 - Constipation, unspecified Instructions: DI for Abdominal Pain-Adult, DI for Constipation Activity Restrictions/Additional Instructions: You were seen today for your abdominal pain and was identified on the CT scan to have constipation problems. We discussed the various treatment options available to you that I will outline here. First you should consider a fiber supplement whether Metamucil powder or tablets you can take that [id number] daily for increasing your daily fiber consumption. The next thing is to consider a stool softener which would be Colace 100 mg twice daily this medication you can get [id number] and you can consult the pharmacist if your unable to locate. You can start with a mild laxative such as MiraLax you can take as directed if no bowel movement and your continuing to have increased discomfort you can progress to magnesium citrate magnesium citrate is in bottle form at the pharmacy. You can drink 1/3 of the bottle and weight 2 hours if no bowel movement you can drink another 3rd of the bottle and wait 2 hours and if no bowel movement you can drink the remaining of the bottle for bowel movement. If magnesium citrate is unsuccessful you can do a Fleet's enema of which he can purchase [id number] as well to assist with bowel movement difficulties. If your pain returns or your not able to have a bowel movement or for any other concerns please return to the emergency room immediately for re-evaluation. Thank you for the opportunity to care for you today. Prescriptions: No Action CA PANTOTHENATE/FOLIC ACID/VIT (MULTIVITAMIN) 1 tab PO Q DAY Qty: 0 0RF (DME) blood-glucose meter [Blood Glucose Monitoring] Kit See Rx Instructions .ROUTE .MEDSUPPLY Qty: 1 0RF Rx Instructions: Test blood sugar once a day, Brand per insurance estradiol 0.01 % (0.1 mg/gram) cream 0.5 g vaginal 2XW Qty: 42.5 3RF lancets [TechLITE Lancets] 28 gauge misc See Rx Instructions .ROUTE .COMPLEX Qty: 100 2RF Dose Instruction: DIRECTED TO TEST BLOOD SUGAR DAILY Rx Instructions: DIRECTED TO TEST BLOOD SUGAR DAILY blood sugar diagnostic [Glucocard Expression] Strip See Rx Instructions .ROUTE .COMPLEX Qty: 100 2RF Dose Instruction: USE DIRECTED TO TEST BLOOD SUGAR ONE A DAY Rx Instructions: USE DIRECTED TO TEST BLOOD SUGAR ONE A DAY atorvastatin 40 mg tablet 40 mg PO BEDTIME Qty: 90 3RF omeprazole 20 mg capsule,delayed release(DR/EC) 20 mg PO DAILY Qty: 90 3RF semaglutide 14 mg tablet 14 mg PO DAILY Qty: 90 0RF spironolactone 25 mg tablet See Rx Instructions .ROUTE .COMPLEX Qty: 90 0RF Dose Instruction: TAKE 1 TABLET BY MOUTH DAILY Rx Instructions: TAKE 1 TABLET BY MOUTH DAILY atenolol 50 mg tablet 50 mg PO BID Qty: 180 1RF clobetasol 0.05 % cream See Rx Instructions .ROUTE .COMPLEX Qty: 120 2RF Dose Instruction: APPLY TO AFFECTED AREA TWICE A DAY Rx Instructions: APPLY TO AFFECTED AREA TWICE A DAY vitamin d 25 mcg capsule 1 cap PO DAILY 0RF acidophilus-pectin, citrus [Probiotic Acidophilus-Pectin] 100 million cell-10 mg capsule 1 cap PO DAILY 0RF azelastine 137 mcg (0.1 %) aerosol,spray 1 spray intranasal BID 0RF Rx Instructions: administer into each nostril ipratropium bromide 0.03 % spray,non-aerosol 2 spray intranasal BID 0RF Rx Instructions: administer into each nostril cranberry 500 mg Capsule 4,200 mg PO DAILY 0RF Referrals: Anthony Flores MD [Primary Care Provider] - <Charu Britt DO - Last Filed: 04/07/22 08:16> Cosign ED Attending Cosignature Attestation: I was immediately available in the department for consultation. Documentation has been reviewed. I agree with assessment and plan.
[2022-04-04 16:19] LABS: Basophils Absolute Auto 0 /uL (0-100); Basophils Percent Auto 0.4 % (0-2); Eosinophils Absolute Auto 0 /uL (0-450); Eosinophils Percent Auto 0.3 % (2-4); Hemoglobin 14.4 g/dL (12.0-16.0); Lymphocytes Absolute Auto 1800 /uL (1100-4500); Lymphocytes Percent Auto 28.6 % (25-40); Mean Corpuscular HGB Conc 35.2 % (30-36); Mean Corpuscular Hemoglobin 31.3 PG (26-34); Mean Corpuscular Volume 88.9 fL (80-100); Monocytes Absolute Auto 800 /uL (0-900); Monocytes Percent Auto 12.2 % (3-14); Neutrophils Absolute Auto 3700 /uL (1500-7000); Neutrophils Percent Auto 58.5 % (50-75); Platelet Count 175 X10^3/uL (150-400); Red Blood Cell Count 4.61 X10^6/uL (4.0-5.2); Red Cell Distribution Width 13.2 % (11.6-14.8); White Blood Cell Count 6.3 X10^3/uL (4.5-11.0)
[2022-04-04 16:33] LABS: Alanine Aminotransferase 25 IU/L (<35); Albumin Globulin Ratio 1.5 (1.0-2.8); Alkaline Phosphatase 83 U/L (38-126); Aspartate Aminotransferase 34 IU/L (14-36); BUN Creatinine Ratio 22.4 (6-22); Bilirubin Total 1.6 mg/dL (0.2-1.3); Blood Urea Nitrogen 13 mg/dL (7-17); Calcium 9.1 mg/dL (8.4-10.2); Carbon Dioxide 23 mmol/L (22-32); Chloride 100 mmol/L (98-107); Estimated Glomerular Filt Rate > 60 mL/min (>60); Globulin 2.7 g/dL (1.7-4.1); Glucose 141 mg/dL (80-110); HEMOLYSIS < 15 (0-50); Sodium 133 mmol/L (137-145); Total Protein 6.7 g/dL (6.3-8.2)
[2022-04-04 17:08] LABS: Add Manual Diff / Slide Review SLIDE REVIEW; RBC Morphology Normal Morphology; Reactive Lymphocytes 2+
[2022-04-04 19:16] VITALS: BP 162/83; PULSE 78; RESP 18; O2SAT 16
== END 2022-04-04 19:20 | disposition home or self-care (01) ==
PROVIDERS: Emergency Provider Physician Assistant; Family Provider Nurse Practitioner; PCP Family Medicine
DX: R10.33 Periumbilical pain (principal); K59.00 Constipation, unspecified
CPT/HCPCS: 36415; 74022; 74176; 80053; 85025; 99284

== ENCOUNTER → 2022-04-05 15:18 | Outpatient (CLI) | payer MEDICARE, BC, SELFPAY ==
[2022-01-29 08:53] VITALS: BMI 25.9
[2022-04-05 17:18] LABS: Bilirubin Urine UA NEGATIVE (NEGATIVE); Color Urine UA YELLOW; Glucose Urine UA NEGATIVE (Negative); Ketones Urine UA 1+ (NEGATIVE); Leukocyte Esterase Urine UA TRACE (NEGATIVE); Nitrite Urine UA NEGATIVE (Negative); Occult Blood Urine UA NEGATIVE (Negative); Protein Urine UA NEGATIVE (Negative); Urobilinogen Urine UA 0.2 E.U./dL (0.2)
[2022-04-05 17:26] LABS: Appearance Urine UA Slightly Cloudy; RBC Urine None Seen (0-5/HPF); Squamous Epithelial Cell Urine 1-5 /HPF (0-5/HPF); WBC Urine 5-10/HPF (0-5/HPF)
[2022-04-05 17:27] LABS: Amorphous Sediment Urine 1+; Bacteria Urine Moderate (10-30); Culture Indicated Urine Specimen Cultured
== END ==
PROVIDERS: Family Provider Nurse Practitioner; PCP Family Medicine; Visit Provider Family Medicine
DX: N39.0 Urinary tract infection, site not specified (principal)
CPT/HCPCS: 81001; 87086

== ENCOUNTER → 2022-05-06 15:02 | Outpatient (CLI) | payer MEDICARE, BC, SELFPAY ==
[2022-04-12 11:05] VITALS: BMI 25.9
--- NOTE | 2022-05-08 09:10 | DIET.CONS ---
Dietary Consultation Note Visit conducted on May 06 at 3pm. Assessment: 81y F attending [address] visit for DM2 needing reccs for high fiber diet meal planning secondary to fecal impaction hx. Usual Day: B: tired of oatmeal, wheat toast, some fiber cold cereal (too much fiber, wants to avoid), eggs, coffee c almond milk Sn: Ensure Original L: 1/2 can [employer] Soups- tomato, split pea c broccoli, fresh veggies D: chicken, turkey, fish, leftovers, has freezer meals, pasta salad bedtime snack Dislikes: black beans, no beef, pt well controlled DM so carb control important Ht: 5'8 Wt: 139# (-17#, trying to replete weight to 150#) Nutrition Diagnosis: inadequate dietary fiber intake r/t nutrition related knowledge deficit aeb pt diet recall shows meeting 50% EER for fiber, pt hospitalized c fecal impaction. Interventions: 1. Educated pt on dietary fiber sources and collaborated c ways to incorporate into current carb consistent meal plan. Pt will choose high fiber bread, add almonds and berries to oatmeal, add beans and high fiber veggies to pasta salad, and continue eating high fiber soups. 2. Introduced pt to [employer] for meal plan and recipe ideas. EER: 21g fiber per day Monitoring/Evaluations: f/u prn Electronically Signed by: Erna Scott 05/08/22 09:10 Clinical Dietitian [address] [address]
== END ==
PROVIDERS: Family Provider Nurse Practitioner; PCP Family Medicine; Referring Provider Family Medicine; Visit Provider Family Medicine
DX: E11.9 Type 2 diabetes mellitus without complications (principal); K56.41 Fecal impaction; Z71.3 Dietary counseling and surveillance
CPT/HCPCS: 97802

== ENCOUNTER → 2022-05-13 14:20 | Outpatient (CLI) | payer MEDICARE, BC, SELFPAY ==
[2022-04-12 11:05] VITALS: BMI 25.9
== END ==
PROVIDERS: Family Provider Nurse Practitioner; PCP Family Medicine; Referring Provider Family Medicine; Visit Provider Family Medicine
DX: Z12.31 Encounter for screening mammogram for malignant neoplasm of breast (principal); Z53.8 Procedure and treatment not carried out for other reasons

== ENCOUNTER → 2022-05-23 07:45 | Outpatient (CLI) | payer MEDICARE, BC, SELFPAY ==
[2022-04-12 11:05] VITALS: BMI 25.9
[2022-05-23 08:14] LABS: Add Manual Diff / Slide Review NO; Basophils Absolute Auto 0 /uL (0-100); Basophils Percent Auto 0.2 % (0-2); Eosinophils Absolute Auto 0 /uL (0-450); Eosinophils Percent Auto 0.4 % (2-4); Hematocrit 40.2 % (36-46); Hemoglobin 14.2 g/dL (12.0-16.0); Lymphocytes Absolute Auto 2500 /uL (1100-4500); Lymphocytes Percent Auto 38.7 % (25-40); Mean Corpuscular HGB Conc 35.2 % (30-36); Mean Corpuscular Hemoglobin 31.9 PG (26-34); Mean Corpuscular Volume 90.8 fL (80-100); Monocytes Absolute Auto 600 /uL (0-900); Monocytes Percent Auto 9.6 % (3-14); Neutrophils Absolute Auto 3300 /uL (1500-7000); Neutrophils Percent Auto 51.1 % (50-75); Platelet Count 153 X10^3/uL (150-400); Red Blood Cell Count 4.43 X10^6/uL (4.0-5.2); Red Cell Distribution Width 14.3 % (11.6-14.8); White Blood Cell Count 6.4 X10^3/uL (4.5-11.0)
[2022-05-23 08:25] LABS: Alanine Aminotransferase 26 IU/L (<35); Albumin 4.3 g/dL (3.5-5.0); Albumin Globulin Ratio 1.5 (1.0-2.8); Alkaline Phosphatase 89 U/L (38-126); Aspartate Aminotransferase 34 IU/L (14-36); BUN Creatinine Ratio 22.6 (6-22); Bilirubin Total 0.7 mg/dL (0.2-1.3); Blood Urea Nitrogen 14 mg/dL (7-17); Calcium 9.3 mg/dL (8.4-10.2); Carbon Dioxide 29 mmol/L (22-32); Chloride 103 mmol/L (98-107); Estimated Glomerular Filt Rate > 60 mL/min (>60); Globulin 2.8 g/dL (1.7-4.1); Glucose 147 mg/dL (80-110); HEMOLYSIS < 15 (0-50); Hemoglobin A1C% w Est Avg Glu 5.7 % (4.0-6.0); Sodium 138 mmol/L (137-145); Total Protein 7.1 g/dL (6.3-8.2)
== END ==
PROVIDERS: Family Provider Nurse Practitioner; PCP Family Medicine; Referring Provider Family Medicine; Visit Provider Family Medicine
DX: E11.9 Type 2 diabetes mellitus without complications (principal); R19.7 Diarrhea, unspecified
CPT/HCPCS: 36415; 80053; 83036; 85025

== ENCOUNTER → 2022-06-04 12:03 | Outpatient (CLI) | payer MEDICARE, BC, SELFPAY ==
[2022-04-12 11:05] VITALS: BMI 25.9
--- NOTE | 2022-06-04 12:04 | DI.MG.S_ITS ---
BILATERAL DIGITAL DIAGNOSTIC MAMMOGRAM 3D/2D: 06/04/2022 CLINICAL: Short term follow up of the right breast, due for bilateral imaging. Comparison is made to exams dated: 05/07/2021 mammogram, 10/18/2020 mammogram, 05/12/2020 mammogram, 05/01/2020 mammogram - [facility], and 05/24/2019 specimen - [facility]. The tissue of both breasts is heterogeneously dense. This may lower the sensitivity of mammography. There is a mass in the right breast seen on the craniocaudal view only. There also are grouped amorphous coarse calcifications in the right breast at 12 o'clock middle depth. These are not significantly changed. No other significant masses, calcifications, or other findings are seen in either breast. 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 There is no mammographic evidence of malignancy. Return to annual mammogram screening schedule is recommended. Based on the Tyrer Cuzick model (a risk assessment model) the patient's lifetime risk is 3.5% and her 10 year risk is 0.0%. According to the ACR, ACS, and NCCN guidelines, an annual breast MRI exam along with mammogram is recommended if the patient's lifetime risk is 20% or greater. This exam was interpreted at Station ID: [id number]. NOTE: For mammograms, a report in lay terms will be sent to the patient. Approximately 15% of breast malignancies will not be visualized mammographically. In the management of a palpable breast mass, a negative mammogram must not discourage biopsy of a clinically suspicious lesion. Electronically Signed By: Raulito Tidwell acr/:06/04/2022 12:46:14 Entry: - 06/05/2022 13:54:05 copy to: AYLEEN CALI letter sent: Followup Recommended ACR BI-RADS Category 2: Benign Finding(s) 3342F
== END ==
PROVIDERS: Family Provider Nurse Practitioner; PCP Family Medicine; Referring Provider Family Medicine; Visit Provider Family Medicine
DX: R92.8 Other abnormal and inconclusive findings on diagnostic imaging of breast (principal); R92.1 Mammographic calcification found on diagnostic imaging of breast
CPT/HCPCS: 77066; G0279

== ENCOUNTER → 2022-11-05 11:06 | Outpatient (CLI) | payer MEDICARE, BC, SELFPAY ==
[2022-04-12 11:05] VITALS: BMI 25.9
[2022-11-05 12:19] LABS: COVID-19 CEPHEID 4-PLEX PCR Negative (Negative); Influenza A - CEPHEID Flu A NEGATIVE (NEGATIVE); Influenza B - CEPHEID Flu B NEGATIVE (NEGATIVE); Respiratory Syncytial Virus Negative (Negative)
== END ==
PROVIDERS: Family Provider Nurse Practitioner; PCP Family Medicine; Visit Provider Registered Nurse
DX: R05.1 Acute cough (principal); Z20.822 Contact with and (suspected) exposure to COVID-19
CPT/HCPCS: 0241U

== ENCOUNTER → 2022-11-29 07:37 | Outpatient (CLI) | payer MEDICARE, BC, SELFPAY ==
[2022-04-12 11:05] VITALS: BMI 25.9
[2022-11-29 08:52] LABS: Alanine Aminotransferase 45 IU/L (<35); Albumin 3.8 g/dL (3.5-5.0); Albumin Globulin Ratio 1.5 (1.0-2.8); Alkaline Phosphatase 153 U/L (38-126); Aspartate Aminotransferase 30 IU/L (14-36); BUN Creatinine Ratio 22.4 (6-22); Bilirubin Total 1.2 mg/dL (0.2-1.3); Blood Urea Nitrogen 13 mg/dL (7-17); Carbon Dioxide 32 mmol/L (22-32); Chloride 95 mmol/L (98-107); Estimated Glomerular Filt Rate > 60 mL/min (>60); Globulin 2.5 g/dL (1.7-4.1); Glucose 272 mg/dL (80-110); HEMOLYSIS < 15 (0-50); Potassium 4.2 mmol/L (3.4-5.1); Sodium 132 mmol/L (137-145); Total Protein 6.3 g/dL (6.3-8.2)
== END ==
PROVIDERS: Family Provider Nurse Practitioner; PCP Family Medicine; Referring Provider Family Medicine; Visit Provider Family Medicine
DX: E11.9 Type 2 diabetes mellitus without complications (principal); I10 Essential (primary) hypertension; E88.81 Metabolic syndrome and other insulin resistance
CPT/HCPCS: 36415; 80053; 83036

== ENCOUNTER → 2023-01-31 15:29 | Outpatient (CLI) | payer MEDICARE, BC, SELFPAY ==
[2022-04-12 11:05] VITALS: BMI 25.9
--- NOTE | 2023-01-31 15:30 | DI.MRI.S_ITS ---
PROCEDURE: MR STROKE Pre- and post-contrast brain MRI, non-contrast brain MR angiogram, pre- and postcontrast neck MR angiogram INDICATIONS: possible prior CVA vs. TIA TECHNIQUE: Brain: Noncontrast axial T1 spin echo, axial T2 fast spin echo, sagittal and axial FLAIR, coronal T2 fast spin echo, axial gradient echo, axial diffusion and ADC through the brain. After the administration of contrast, axial 3D VIBE of the cranial vasculature and brain. Brain MRA: Non-contrast 3-D time of flight MR angiogram, with multiple byulpyf-pwhjikybq-ekqfnmmwbl (MIP) reformats performed. Neck MRA: Axial and sagittal TruFISP through the neck. Coronal dynamic MR angiogram during administration of contrast in the arterial and venous phases, with 3-dimenstional kbuoolv-fbyorihen-chdfrxrdut (MIP) reformats constructed from subtraction images. COMPARISON: [facility], MR, MR HEAD/BRAIN WO/W CON, 01/14/2022, 16:53. FINDINGS: Image quality: Excellent. BRAIN: CSF spaces: Ventricles are normal in size and shape. Basal cisterns are patent. No extra-axial fluid collections. Brain: No intracranial bleeds . There is a dural-based extra-axial focus of enhancement at the anterior aspect of the left frontal lobe as before, measuring roughly 9 mm diameter, as before. There is a dural-based avidly enhancing focus along the greater wing of the left sphenoid at the anterior aspect of the left temporal lobe measuring roughly 18 mm, as before. Mild diffuse cerebral volume loss. Mild degree of patchy high FLAIR signal within the periventricular and subcortical white matter. Groves-white matter interface is normal. Diffusion weighted images show no acute ischemic insults. Brainstem appears normal. Normal intravascular flow voids are present. Skull and face: Calvarial marrow signal is normal. Orbits appear normal. Sinuses: Sinuses and mastoids are clear. BRAIN MR ANGIOGRAM: Anterior circulation: Intracranial internal carotid arteries are normal in size and enhancement. The flow within the paired anterior cerebral arteries is normal and symmetric. The flow within the middle cerebral arteries is normal and symmetric. The anterior communicating artery is seen. No stenoses, occlusions, or aneurysms. Posterior circulation: The visualized portions of the vertebral arteries demonstrate normal caliber, and join to form a normal appearing basilar artery. The flow within the posterior cerebral arteries is normal and symmetric. No stenoses, occlusions, or aneurysms. NECK MR ANGIOGRAM: Carotids: Great vessels demonstrate a conventional anatomy as they arise from the aortic arch. The origins of the common carotid arteries appear patent. The calibers and courses of both common carotid arteries are normal. The bifurcation regions appear normal bilaterally. The internal carotid arteries demonstrate normal course and caliber. Posterior circulation: The origins of the vertebral arteries appear patent. More superior portions of both vertebral arteries demonstrate normal course and caliber, and join to form a normal appearing basilar artery. Miscellaneous: Subclavian arteries appear patent. Pre-contrast images through the neck show no soft tissue abnormalities. IMPRESSION: BRAIN MRI: 1. No change in left frontal meningiomas. 2. Mild volume loss and small vessel ischemic disease. 3. No acute process. No recent infarct. BRAIN MR ANGIOGRAM: Negative cerebral MR angiography. NECK MR ANGIOGRAM: 1. No internal carotid artery stenosis bilaterally. 2. Patent bilateral vertebral arteries. Dictated by: Gomez Thao M.D. on 01/31/2023 at 16:45 Transcribed by: JANKI on 01/31/2023 at 16:50 Approved by: Gomez Thao M.D. on 02/11/2023 at 15:10
== END ==
PROVIDERS: Family Provider Family Medicine; PCP Family Medicine; Referring Provider Family Medicine; Visit Provider Family Medicine
DX: G45.9 Transient cerebral ischemic attack, unspecified (principal); D32.0 Benign neoplasm of cerebral meninges
CPT/HCPCS: 70548; 70553; A9579

== ENCOUNTER → 2023-02-20 10:13 | Outpatient (CLI) | payer MEDICARE, BC, SELFPAY ==
[2022-04-12 11:05] VITALS: BMI 25.9
--- NOTE | 2023-03-05 15:23 | DIAB.MNT ---
Initial Diabetes Medical Nutrition Therapy Assessment Name: Betsy Cordero Date: 02/20/23 Time: [id number] Dx: Type II Diabetes Provider: Mark Meyer presents for initial DM visit. Endorses FH of DM with sister and PMH of DM for 2-3 years. Recent HgA1c up from 5.7% to 10%. Per provider notes, hyperglycemia started after steroid tx. Betsy reports rxns to DM medications, including extreme GI upset with Metformin, diarrhea/constipation with Rybelsus (and felt it did not work). Feels glipizide also has been giving her explosive gas however she discontinued glipizide over the weekend and no change in GI upset or gas. Has never taken DSME classes and is interested. Also interested in meal/snack ideas. States she is taking her glipizide 30 min ac, which does not sound consistent with most prescriptions. Does not state this in EMR rx. Plans to check home med instructions and discuss with pharmacist. Diet Recall: 7-9am: 1c fiber one cereal with grapenuts, almonds +/- slovak muffin half 10a: small apple and cheese or ensure 12-1p: chicken and rice x 1c with half orange and 8-10 chips OR soup half can with cx or tuna and one fruit 3p: cheese and cracker sandwiches x 4-6 OR PB and apple 5-6p: 1/2-1c veggie lasagna with veggies with hummus x 1/4c or salad OR fish with veggies +/- 1/2c potato salad 8p: ensur eor 1c ice cream other snacks: rice cakes x 2 with V8 low Na ; nuts ; 1/3c chocolate trail mix ; 6 viral snaps beverages: water 2-3x 16oz, or pedialyte, 1-2 ensure per day Interested in keeping food journal for review. Anthropometrics: Ht: 68 Wt: 162# 01/2023 Weight history: reports unintentional wt loss last year due to diarrhea and only eating small meals. Lost 30# in that time and gained back about 15#. 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 probably benign repeat 6 months Acid reflux egd 2019 Angular cheilitis Chicken pox (~1950) Chronic vaginitis (04/01/16) Contusion of left thumb Diarrhea Dizziness Edema of both lower legs Edema of foot (11/01/15) Esophagitis Frequent UTI Green nails Hearing loss House dust mite allergy Hyperlipidemia Hypertension Hypomagnesemia Hyponatremia Lichen sclerosus of female genitalia Measles (~1950) Meningioma Mumps (~1950) Obstructive sleep apnea hypopnea, moderate Is getting a good night's sleep with CPAP Onychomycosis Oral thrush Osteoarthritis of left hip (04/01/16) Overweight (BMI 25.0-29.9) Palpitations Pollen allergy SBO (small bowel obstruction) Shortness of breath on exertion Snoring Syncope 4 episodes summer 2019, 06/2020 saw [facility] [place] [facility], normal EEG 09/12 MRI pending. zio patch. Thumb fracture Thumb laceration Uncontrolled diabetes mellitus Venous telangiectasia of lower extremity Vision disorder Vulvitis Nutrition Rx: Carbohydrates: Meal: 30-45g Snack:15-30g Nutrition Diagnosis: - Excessive CHO intake r/t nutrition knowledge deficit aeb diet recall (breakfast) - Predicted inadequate fluid intake r/t nutrition knowledge deficit aeb diet recall (may be making goal if having ensure daily) Intervention: This participant was very receptive. Provided appropriate educational handouts. Discussed the following topics: Completed intake assessment. Discussed barriers to care. Pathophysiology of T2DM and impact of steroid tx on BG usual SE of Dm meds Usual rx for glipizide is to take just before meals HgA1c, its correlation to blood glucose numbers, and rationale for goal Importance of self-monitoring, how often, and when to check. Suggested checking at different times to evaluate meals Plate Method, impact of macronutrients on blood sugar, meal timing, pairing macronutrients and spreading out carbohydrates for better blood glucose management Recommended servings for carbohydrates at meals and snacks Snack list and ideas fluids recs Role of physical activity and following provider guidelines for safety Created SMART goals for patient self-care and success. Goals: Reduced carbs at breakfast ask pharmacist about glipizide 30 min ac keep viral snaps to 2-4 max Pair carb and pro Check a few pc BG Follow-up: [facility] follow-up in 3-4 weeks and DSME classes in March After our visit, Betsy called to confirm that she dose not have to wait 30 min prior to meal to take glipizide. Renetta Nolan RDN, [facility] Certified Diabetes Care and Natural Resource Manager P: [phone] Thank you for this referral
== END ==
PROVIDERS: Absent Provider Family Medicine; Family Provider Family Medicine; PCP Family Medicine; Referring Provider Family Medicine; Visit Provider Family Medicine
DX: E11.9 Type 2 diabetes mellitus without complications (principal); Z71.3 Dietary counseling and surveillance; Z79.84 Long term (current) use of oral hypoglycemic drugs
CPT/HCPCS: 97802

== ENCOUNTER 2023-03-14 07:50 | Emergency (ER) | payer MEDICARE, BC, SELFPAY ==
[2022-04-12 11:05] VITALS: BMI 25.9
[2023-03-14] VITALS (14 sets, daily range): BP systolic 135–186; BP diastolic 67–86; PULSE 56–66; RESP 11–29; TEMP 36.6; O2SAT 96–99; BMI 24.3
--- NOTE | 2023-03-14 08:11 | DI.RAD.S_ITS ---
PROCEDURE: XR CHEST 1V INDICATIONS: chest pain TECHNIQUE: One view of the chest was acquired. COMPARISON: [facility], CR, XR CHEST 1V, 06/08/2020, 14:43. FINDINGS: Surgical changes and devices: None. Lungs and pleura: Lungs are clear. No pleural effusions or pneumothorax. Mediastinum: Mediastinal contours appear normal. Heart size is enlarged. Bones and chest wall: No suspicious bony lesions. Overlying soft tissues appear unremarkable. IMPRESSION: No acute pulmonary process. Dictated by: Ana Conrad M.D. on 03/14/2023 at 8:49 Approved by: Ana Conrad M.D. on 03/14/2023 at 8:54
--- NOTE | 2023-03-14 08:13 | ED_ITS ---
HPI - Chest Pain General Chief Complaint: Chest Pain Stated Complaint: sent by [facility] chest pressure T-1 Time Seen by Provider: 03/14/23 08:06 Source: patient Mode of arrival: Wheelchair Limitations: no limitations History of Present Illness HPI narrative: Patient sent here from walk-in clinic for complaints of hoarse voice congestion and cough but in addition substernal chest pressure. Patient states her was diagnosed with rhino virus in the past week. She started symptoms yesterday with cough congestion hoarse voice and substernal chest pressure. Discomfort feels like bricks on her chest she states. Never had this before. It is nonreproducible. No nausea dyspnea or diaphoresis. Patient did have stress test in 2018 or 2019. Echocardiogram below is from August 08 2020. Patient describes chest discomfort 04/02. Referring: ALLYSON ALCANTARA : + + Interpretation Summary 1) Normal left ventricular thickness, size, wall motion and systolic function (EF 60-65%). 2) Normal right ventricular size and function. 3) No significant valvular abnormalities. 4) Comnpared to the Echo done 11/11/2019, no significant change. Related Data Home Medications Medication Instructions Recorded Confirmed CA PANTOTHENATE/FOLIC ACID/VIT 1 tab PO Q DAY ##0 09/13/11 03/31/23 (MULTIVITAMIN) acidophilus 100 million 1 cap PO DAILY 05/26/19 03/31/23 cell-pectin, citrus 10 mg capsule (Probiotic Acidophilus-Pectin) vitamin d 1 cap PO DAILY 05/26/19 03/31/23 cranberry 500 mg capsule 4,200 mg PO DAILY 06/05/20 03/31/23 Previous Rx's Medication Instructions Recorded blood-glucose meter (Blood Glucose #1 ea 01/10/20 Monitoring kit) lancets 28 gauge (TechLITE Lancets) #100 ea 05/07/22 atenolol 50 mg tablet 50 mg PO BID #180 tabs 06/27/22 atorvastatin 40 mg tablet 40 mg PO BEDTIME #90 tabs 06/27/22 clobetasol 0.05 % topical cream See Rx Instructions .Route 06/27/22 .COMPLEX #120 grams spironolactone 25 mg tablet See Rx Instructions .Route 06/27/22 .COMPLEX #90 tabs omeprazole 20 mg capsule,delayed 20 mg PO DAILY #90 caps 10/25/22 release ipratropium bromide 42 mcg (0.06 See Rx Instructions .Route 12/16/22 %) nasal spray .COMPLEX #15 mL blood sugar diagnostic (Glucocard #100 ea 02/11/23 Expression strips) azelastine 205.5 mcg (0.15 %) 2 spray intranasal BID congestion 03/19/23 nasal spray /allergies 14 days #30 mL benzonatate 100 mg capsule 100 mg PO TID PRN cough 7 days #21 03/19/23 caps amoxicillin 875 mg-potassium 1 tab PO BID #14 tabs 03/21/23 clavulanate 125 mg tablet sodium sul 1.479 gram-potas ch See Rx Instructions PO PER PKG DIR 03/28/23 0.188 gram-magnes sul 0.225 gram #24 tabs tablet (Sutab) doxycycline hyclate 100 mg capsule 100 mg PO BID #14 caps 03/31/23 glipizide 10 mg tablet, extended 10 mg PO DAILY #90 tabs 03/31/23 release 24 hr lidocaine 5 % topical patch 1 patch topical DAILY #30 ea 03/31/23 Allergies Allergy/AdvReac Type Severity Reaction Status Date / Time Sulfa (Sulfonamide Allergy Intermediate HIVES Verified 03/31/23 07:19 Antibiotics) lisinopril Allergy Mild COUGH Verified 03/31/23 07:19 ARB-Angiotensin Receptor AdvReac Severe syncope, Verified 03/31/23 07:19 Antagonist diarrhea metformin AdvReac Intermediate Diarrhea Verified 03/31/23 07:19 Review of Systems Review of Systems Narrative: GENERAL: negative chills, fatigue, malaise, fever, sweats. HEENT: negative sinus pain, ear pain, positive nasal congestion and sore throat RESPIRATORY: negative dyspnea, positive cough CARDIOVASCULAR: negative chest pain, palpitations GASTROINTESTINAL: negative nausea, vomiting, abdominal pain : negative dysuria, frequency, hematuria MUSCULOSKELETAL: negative muscle or bony pain SKIN: negative rash, skin lesions NEUROLOGIC: negative weakness, numbness ROS Unobtainable: All systems reviewed & are unremarkable except as noted in HPI and below Patient History Medical History Abnormal mammogram of right breast (~04/2020) Acid reflux Angular cheilitis Chicken pox (~1950) Chronic vaginitis (04/01/16) Contusion of left thumb Diarrhea Dizziness Edema of both lower legs Edema of foot (11/01/15) Esophagitis Frequent UTI Green nails Hearing loss House dust mite allergy Hyperlipidemia Hypertension Hypomagnesemia Hyponatremia Lichen sclerosus of female genitalia Measles (~1950) Meningioma Mumps (~1950) Obstructive sleep apnea hypopnea, moderate Onychomycosis Oral thrush Osteoarthritis of left hip (04/01/16) Overweight (BMI 25.0-29.9) Palpitations Pollen allergy SBO (small bowel obstruction) Shortness of breath on exertion Snoring Syncope Thumb fracture Thumb laceration Uncontrolled diabetes mellitus Venous telangiectasia of lower extremity Vision disorder Vulvitis Surgical History Anesthesia History of left hip replacement Status post hernia repair (~1964) Family History Brother Age: 84 Detached retina Father Cancer Loud snoring Mother Hypertension Social History household members: spouse Smoking Status: Never smoker alcohol intake: current substance use type: does not use eating out: rarely or never Type(s) of exercise: bicycling Smoking Status: Never smoker alcohol intake frequency: holidays/special occasions only Substance Use Type: does not use Exam Narrative Exam Narrative: GENERAL: in no distress, not toxic not dyspneic, patient does have hoarse voice HEAD: Normocephalic. EYES: Pupils equal round ENT: Mucous membranes moist. NECK: Trachea midline. CARDIOVASCULAR: Regular rate and rhythm without murmurs, nonreproducible chest tenderness or pain on palpation deep breath movement or cough. RESPIRATORY: Clear to auscultation. Breath sounds equal bilaterally. No wheezes, rales, or rhonchi. GASTROINTESTINAL: Abdomen soft, non-tender EXTREMITIES: No gross deformities. BACK: No flank tenderness. NEURO: AOx4. SKIN: Warm and dry PSYCH: Not anxious, is cooperative Initial Vital Signs Initial Vital Signs: Vital Signs Temperature 97.9 F 03/14/23 08:06 Pulse Rate 66 03/14/23 08:06 Respiratory Rate 18 03/14/23 08:06 Blood Pressure 185/86 H 03/14/23 08:06 Pulse Oximetry 98 03/14/23 08:06 Oxygen Delivery Method Room Air 03/14/23 08:06 Course Orders Ordered: Discontinued Medications Aspirin (Aspirin 81 Mg Chew Tab) 324 mg PO NOW ONE Stop: 03/14/23 08:11 Last Admin: 03/14/23 08:20 Dose: 324 mg Documented By: LUIS ANGEL Nitroglycerin (Nitroglycerin Oint 1 Inch/Gm Oint...G.) 1 inch TOP NOW ONE Stop: 03/14/23 08:13 Last Admin: 03/14/23 08:19 Dose: 1 inch Documented By: LUIS ANGEL Vital Signs Vital signs: Vital Signs - 8 hr 03/14/23 08:06 03/14/23 08:19 03/14/23 08:25 Temperature 97.9 F Pulse Rate 66 59 L 57 L Respiratory Rate 18 14 Blood Pressure 185/86 H 186/85 H Pulse Oximetry 98 96 Oxygen Delivery Method Room Air 03/14/23 08:30 03/14/23 08:30 03/14/23 09:00 Temperature Pulse Rate 56 L 58 L Respiratory Rate 11 L 24 Blood Pressure 152/74 H Pulse Oximetry 97 96 Oxygen Delivery Method 03/14/23 09:03 03/14/23 09:03 03/14/23 09:30 Temperature Pulse Rate 57 L 56 L Respiratory Rate 27 H 14 Blood Pressure 155/69 H Pulse Oximetry 96 96 Oxygen Delivery Method 03/14/23 09:53 03/14/23 09:54 03/14/23 09:54 Temperature Pulse Rate 58 L 58 L Respiratory Rate 19 29 H Blood Pressure 161/77 H Pulse Oximetry 96 96 Oxygen Delivery Method Room Air 03/14/23 10:00 03/14/23 10:00 03/14/23 10:30 Temperature Pulse Rate 60 56 L Respiratory Rate 24 Blood Pressure 135/67 Pulse Oximetry 96 97 Oxygen Delivery Method Room Air 03/14/23 10:31 03/14/23 10:31 03/14/23 11:08 Temperature Pulse Rate 57 L 63 Respiratory Rate 26 H Blood Pressure 148/67 H Pulse Oximetry 96 99 Oxygen Delivery Method 03/14/23 11:11 03/14/23 11:11 Temperature Pulse Rate 62 Respiratory Rate 20 Blood Pressure 163/67 H Pulse Oximetry 97 Oxygen Delivery Method Room Air MDM - Chest Pain Lab Data 03/14/23 08:11 03/14/23 08:11 Labs: Lab Results 03/14/23 03/14/23 03/14/23 Range/Units 08:11 08:11 08:11 WBC 6.8 (4.5-11.0) X10^3/uL RBC 4.45 (4.0-5.2) X10^6/uL Hgb 14.5 (12.0-16.0) g/dL Hct 40.7 (36-46) % MCV 91.4 (80-100) fL MCH 32.5 (26-34) PG MCHC 35.6 (30-36) % RDW 13.3 (11.6-14.8) % Plt Count 140 L (150-400) X10^3/uL Neut % (Auto) 61.8 (50-75) % Lymph % (Auto) 24.9 L (25-40) % [place] % (Auto) 12.2 (3-14) % Eos % (Auto) 0.9 L (2-4) % Baso % (Auto) 0.2 (0-2) % Neut # (Auto) 4200 (6010-3164) /uL Lymph # (Auto) 1700 (4213-3769) /uL [place] # (Auto) 800 (0-900) /uL Eos # (Auto) 100 (0-450) /uL Baso # (Auto) 0 (0-100) /uL PT 12.5 (10.1-12.7) SECONDS INR 1.1 (0.9-1.3) APTT 35 (26-36) SECONDS Sodium 134 L (137-145) mmol/L Potassium 3.9 (3.4-5.1) mmol/L Chloride 99 (98-107) mmol/L Carbon Dioxide 28 (22-32) mmol/L BUN 16 (7-17) mg/dL Creatinine 0.54 (0.52-1.04) mg/dL Estimated GFR > 60 (>60) mL/min BUN/Creatinine Ratio 29.6 H (6-22) Glucose 221 H (80-110) mg/dL Calcium 9.2 (8.4-10.2) mg/dL Magnesium 1.6 (1.6-2.3) mg/dL Total Bilirubin 0.9 (0.2-1.3) mg/dL AST 27 (14-36) IU/L ALT 33 (<35) IU/L Alkaline Phosphatase 147 H (38-126) U/L Total Creatine Kinase 28 L (30-135) U/L CK-MB (CK-2) TNP CK-MB (CK-2) Rel Index TNP Troponin I < 0.012 (0.01-0.034) ng/mL Total Protein 6.6 (6.3-8.2) g/dL Albumin 3.9 (3.5-5.0) g/dL Globulin 2.7 (1.7-4.1) g/dL Albumin/Globulin Ratio 1.4 (1.0-2.8) Lipase 125 (23-300) U/L Chlamy pneumoniae PCR (Not Detect) Adenovirus (PCR) (Not Detect) B. pertussis DNA (PCR) (Not Detecte) B.parapertussis DNA PCR (Not Detecte) Coronavirus OC43 (PCR) (Not Detect) Coronavirus HKU1 (PCR) (Not Detect) Coronavirus 229E (PCR) (Not Detect) SARS-CoV-2 (PCR) (Not Detecte) Coronavirus NL63 (PCR) (Not Detect) Human Metapneumovir PCR (Not Detect) Influenza Type A (PCR) (Not Detect) Influenza Type B (PCR) (Not Detect) M. pneumoniae (PCR) (Not Detect) Parainfluenza 1 (PCR) (Not Detect) Parainfluenza 2 (PCR) (Not Detect) Parainfluenza 3 (PCR) (Not Detect) Parainfluenza 4 (PCR) (Not Detect) RSV (PCR) (Not Detect) Entero/Rhino (PCR) (Not Detect) 03/14/23 03/14/23 Range/Units 08:12 10:10 WBC (4.5-11.0) X10^3/uL RBC (4.0-5.2) X10^6/uL Hgb (12.0-16.0) g/dL Hct (36-46) % MCV (80-100) fL MCH (26-34) PG MCHC (30-36) % RDW (11.6-14.8) % Plt Count (150-400) X10^3/uL Neut % (Auto) (50-75) % Lymph % (Auto) (25-40) % [place] % (Auto) (3-14) % Eos % (Auto) (2-4) % Baso % (Auto) (0-2) % Neut # (Auto) (6518-5210) /uL Lymph # (Auto) (4890-0210) /uL [place] # (Auto) (0-900) /uL Eos # (Auto) (0-450) /uL Baso # (Auto) (0-100) /uL PT (10.1-12.7) SECONDS INR (0.9-1.3) APTT (26-36) SECONDS Sodium (137-145) mmol/L Potassium (3.4-5.1) mmol/L Chloride (98-107) mmol/L Carbon Dioxide (22-32) mmol/L BUN (7-17) mg/dL Creatinine (0.52-1.04) mg/dL Estimated GFR (>60) mL/min BUN/Creatinine Ratio (6-22) Glucose (80-110) mg/dL Calcium (8.4-10.2) mg/dL Magnesium (1.6-2.3) mg/dL Total Bilirubin (0.2-1.3) mg/dL AST (14-36) IU/L ALT (<35) IU/L Alkaline Phosphatase (38-126) U/L Total Creatine Kinase (30-135) U/L CK-MB (CK-2) CK-MB (CK-2) Rel Index Troponin I < 0.012 (0.01-0.034) ng/mL Total Protein (6.3-8.2) g/dL Albumin (3.5-5.0) g/dL Globulin (1.7-4.1) g/dL Albumin/Globulin Ratio (1.0-2.8) Lipase (23-300) U/L Chlamy pneumoniae PCR Not detected (Not Detect) Adenovirus (PCR) Not detected (Not Detect) B. pertussis DNA (PCR) Not detected (Not Detecte) B.parapertussis DNA PCR Not detected (Not Detecte) Coronavirus OC43 (PCR) Not detected (Not Detect) Coronavirus HKU1 (PCR) Not detected (Not Detect) Coronavirus 229E (PCR) Not detected (Not Detect) SARS-CoV-2 (PCR) Not detected (Not Detecte) Coronavirus NL63 (PCR) Not detected (Not Detect) Human Metapneumovir PCR Not detected (Not Detect) Influenza Type A (PCR) Not detected (Not Detect) Influenza Type B (PCR) Not detected (Not Detect) M. pneumoniae (PCR) Not detected (Not Detect) Parainfluenza 1 (PCR) Not detected (Not Detect) Parainfluenza 2 (PCR) Not detected (Not Detect) Parainfluenza 3 (PCR) Not detected (Not Detect) Parainfluenza 4 (PCR) Not detected (Not Detect) RSV (PCR) Not detected (Not Detect) Entero/Rhino (PCR) Not detected (Not Detect) Imaging Data Chest x-ray: Radiologist's Impression: PROCEDURE:? XR CHEST 1V ? INDICATIONS:? chest pain ? TECHNIQUE:? One view of the chest was acquired.? ? COMPARISON:? [facility], , XR CHEST 1V, 06/08/2020, 14:43. ? FINDINGS:? ? Surgical changes and devices:? None.? ? Lungs and pleura:? Lungs are clear.? No pleural effusions or pneumothorax.? ? Mediastinum:? Mediastinal contours appear normal.? Heart size is enlarged.? ? Bones and chest wall:? No suspicious bony lesions.? Overlying soft tissues appear unremarkable.? ? IMPRESSION:? No acute pulmonary process. ? ? Dictated by: Ana Conrad M.D. on 03/14/2023 at 8:49 ? ? Approved by: Ana Conrad M.D. on 03/14/2023 at 8:54 ? [facility] Narrative Medical decision making narrative: After history and exam CBC CMP troponin cardiac enzymes EKG chest x-ray nitro paste aspirin viral swab ordered [facility] CC: Upper respiratory symptoms and chest discomfort Complicating co-morbidities: History hypertension hyperlipidemia Data collected from: Patient Medical records reviewed: Echocardiogram August 08, 2020 Differential considered: Includes but not limited to upper respiratory infectio n bronchitis pneumonia costochondritis pleurisy NV STEMI non-STEMI angina unstable angina Exam documented above, pertinent findings include: Hoarse voice, nonreproducible chest discomfort Lab Test results independently reviewed as above. Pertinent findings: White cell count 6.8 troponin less than 0.012 to twice Independently reviewed EKG as above sinus bradycardia rate [address] elevation or depression EKG 2 at 10:38 a.m. sinus bradycardia rate [address] elevation or depression Imaging studies independently reviewed: No acute process Consultations: 11:00 a.m.. I spoke with Cardiology Dr. Zurdo Bagley. No indication for stress test or echocardiogram at this time. This is not present with signs and symptoms of coronary syndrome. Or heart attack or related to the heart. Patient has had constant substernal chest pressure tightness. No nausea sweating or shortness of breath. Patient has accompanying allergy/respiratory infection symptoms. Patient can follow up with primary care for outpatient workup echocardiogram and possible stress test but none needed at this time. I did inform him that patient is going to stress test and echo but he informs we can cancel that now. Nitro paste with improvement is nonspecific he states. Treatments: Aspirin nitro paste Re-evaluations: 11:15 a.m.. I spoke with patient and . He is at bedside. Blood pressure has improved with nitro paste. Currently no chest pain. I did inform them change of plans for stress test, as I was speaking with childhood teacher as she was going down for the stress test. She understands and agrees with treatment plan and follow up with primary care. She states her allergies are likely acting up because spring weather and pollen and trees and grass growing. She will start taking her allergy medications again. Return precautions reviewed with her. She desires discharge home Discussion: Appropriate for discharge home. I did review with childhood teacher Dr. Bagley, does not want patient admitted or stress test or echocardiogram. Patient to follow up with primary care next week. Patient response to nitro paste is nonspecific., patient's constant substernal chest pain for 2 days is not typical of heart disease. Return precautions reviewed with patient. Blood pressure improved. Her hoarse voice and congestion and watery eyes likely due to seasonal allergies. The chest discomfort may be from the elevated blood pressure Diagnosis: Atypical chest pain/seasonal allergies Discharge Plan Departure Patient Disposition: Home Clinical Impression: Atypical chest pain, Environmental and seasonal allergies Instructions: Allergic Rhinitis, DI for Atypical Chest Pain Activity Restrictions/Additional Instructions: Please see your family doctor next week for re-evaluation to schedule possible echocardiogram and stress test for your heart. Cardiology services Dr. Juan Bagley was contacted today and has reviewed your results and at this time likely not need stress test here or admission today. Please do continue start taking your allergy medications. Please do have your blood pressure remeasured with her family doctor next week. Continue home medications. Return if worse or for any questions or concerns. Today's EKGs and laboratory studies and chest x-ray have been reassuring. Prescriptions: No Action amoxicillin-pot clavulanate 875-125 mg tablet 1 tab PO BID Qty: 14 0RF lidocaine 5 % adhesive patch,medicated 1 patch topical DAILY Qty: 30 0RF Rx Instructions: leave on most painful area for up to 12 hrs doxycycline hyclate 100 mg capsule 100 mg PO BID Qty: 14 0RF benzonatate 100 mg capsule 100 mg PO TID PRN (Reason: cough) 7 Days Qty: 21 1RF azelastine 205.5 mcg (0.15 %) spray,non-aerosol 2 spray intranasal BID 14 Days Qty: 30 0RF Rx Instructions: administer into each nostril CA PANTOTHENATE/FOLIC ACID/VIT (MULTIVITAMIN) 1 tab PO Q DAY Qty: 0 (DME) blood-glucose meter [Blood Glucose Monitoring] Kit See Rx Instructions .ROUTE .MEDSUPPLY Qty: 1 0RF Rx Instructions: Test blood sugar once a day, [place] [place] lancets [TechLITE Lancets] 28 gauge misc See Rx Instructions .ROUTE .COMPLEX Qty: 100 1RF Dose Instruction: DIRECTED TO TEST BLOOD SUGAR DAILY Rx Instructions: DIRECTED TO TEST BLOOD SUGAR DAILY omeprazole 20 mg capsule,delayed release(DR/EC) 20 mg PO DAILY Qty: 90 3RF ipratropium bromide 42 mcg (0.06 %) spray,non-aerosol See Rx Instructions .ROUTE .COMPLEX Qty: 15 3RF Dose Instruction: USE 2 SPRAYS IN EACH NOSTRIL TWICE DAILY Rx Instructions: USE 2 SPRAYS IN EACH NOSTRIL TWICE DAILY (DME) Glucocard Expression Strip See Rx Instructions .ROUTE .COMPLEX Qty: 100 2RF Dose Instruction: USE DIRECTED TO TEST BLOOD SUGAR ONE A DAY Rx Instructions: USE DIRECTED TO TEST BLOOD SUGAR ONE A DAY Sutab 1.479-0.188- 0.225 gram tablet See Rx Instructions PO PER PKG DIR Qty: 24 0RF Rx Instructions: Take as directed by Physician glipizide 10 mg tablet extended release 24hr 10 mg PO DAILY Qty: 90 0RF vitamin d 25 mcg capsule 1 cap PO DAILY acidophilus-pectin, citrus [Probiotic Acidophilus-Pectin] 100 million cell-10 mg capsule 1 cap PO DAILY atenolol 50 mg tablet 50 mg PO BID Qty: 180 1RF atorvastatin 40 mg tablet 40 mg PO BEDTIME Qty: 90 3RF clobetasol 0.05 % cream See Rx Instructions .ROUTE .COMPLEX Qty: 120 2RF Dose Instruction: APPLY TO AFFECTED AREA TWICE A DAY Rx Instructions: APPLY TO AFFECTED AREA TWICE A DAY spironolactone 25 mg tablet See Rx Instructions .ROUTE .COMPLEX Qty: 90 3RF Dose Instruction: TAKE 1 TABLET BY MOUTH DAILY Rx Instructions: TAKE 1 TABLET BY MOUTH DAILY cranberry 500 mg Capsule 4,200 mg PO DAILY Referrals: Anthony Flores MD [Primary Care Provider] - Stand Alone Forms: Patient Portal/API
[2023-03-14] MEDS: NITROGLYCERIN OINT 1 INCH/GM OINT...G. TOP (08:19)
[2023-03-14] MEDS: ASPIRIN 81 MG CHEW TAB 324 MG PO (08:20)
[2023-03-14 08:22] LABS: Add Manual Diff / Slide Review NO; Basophils Absolute Auto 0 /uL (0-100); Basophils Percent Auto 0.2 % (0-2); Eosinophils Absolute Auto 100 /uL (0-450); Eosinophils Percent Auto 0.9 % (2-4); Hematocrit 40.7 % (36-46); Hemoglobin 14.5 g/dL (12.0-16.0); Lymphocytes Absolute Auto 1700 /uL (1100-4500); Lymphocytes Percent Auto 24.9 % (25-40); Mean Corpuscular HGB Conc 35.6 % (30-36); Mean Corpuscular Hemoglobin 32.5 PG (26-34); Mean Corpuscular Volume 91.4 fL (80-100); Monocytes Absolute Auto 800 /uL (0-900); Monocytes Percent Auto 12.2 % (3-14); Neutrophils Absolute Auto 4200 /uL (1500-7000); Neutrophils Percent Auto 61.8 % (50-75); Platelet Count 140 X10^3/uL (150-400); Red Blood Cell Count 4.45 X10^6/uL (4.0-5.2); Red Cell Distribution Width 13.3 % (11.6-14.8); White Blood Cell Count 6.8 X10^3/uL (4.5-11.0)
[2023-03-14 08:29] LABS: INR 1.1 (0.9-1.3); Prothrombin Time 12.5 SECONDS (10.1-12.7)
[2023-03-14 08:31] LABS: PTT Partial Thromboplastin Tim 35 SECONDS (26-36)
[2023-03-14 08:34] LABS: Alanine Aminotransferase 33 IU/L (<35); Albumin 3.9 g/dL (3.5-5.0); Albumin Globulin Ratio 1.4 (1.0-2.8); Alkaline Phosphatase 147 U/L (38-126); Aspartate Aminotransferase 27 IU/L (14-36); BUN Creatinine Ratio 29.6 (6-22); Bilirubin Total 0.9 mg/dL (0.2-1.3); Blood Urea Nitrogen 16 mg/dL (7-17); Calcium 9.2 mg/dL (8.4-10.2); Carbon Dioxide 28 mmol/L (22-32); Chloride 99 mmol/L (98-107); Creatine Kinase 28 U/L (30-135); Estimated Glomerular Filt Rate > 60 mL/min (>60); Globulin 2.7 g/dL (1.7-4.1); Glucose 221 mg/dL (80-110); HEMOLYSIS < 15 (0-50); Lipase 125 U/L (23-300); Magnesium 1.6 mg/dL (1.6-2.3); Potassium 3.9 mmol/L (3.4-5.1); Sodium 134 mmol/L (137-145); Total Protein 6.6 g/dL (6.3-8.2)
[2023-03-14 08:46] LABS: Troponin I < 0.012 ng/mL (0.01-0.034)
[2023-03-14 09:48] LABS: Adenovirus Not Detected (Not Detect); B. parapertussis Not Detected (Not Detecte); Bordetella pertussis Not Detected (Not Detecte); Chlamydophila pneumoniae Not Detected (Not Detect); Coronavirus 229E Not Detected (Not Detect); Coronavirus HKU1 Not Detected (Not Detect); Coronavirus NL 63 Not Detected (Not Detect); Coronavirus OC43 Not Detected (Not Detect); Human Metapneumovirus Not Detected (Not Detect); Human Rhinovirus/Enterovirus Not Detected (Not Detect); Influenza A Not Detected (Not Detect); Influenza B Not Detected (Not Detect); Mycoplasma pneumoniae Not Detected (Not Detect); Parainfluenza Virus 1 Not Detected (Not Detect); Parainfluenza Virus 2 Not Detected (Not Detect); Parainfluenza Virus 3 Not Detected (Not Detect); Parainfluenza Virus 4 Not Detected (Not Detect); Respiratory Syncytial Virus Not Detected (Not Detect); SARS- CoV-2 Not Detected (Not Detecte)
--- NOTE | 2023-03-14 09:55 | PC.NURSE ---
Pain improved after Nitro. Pt given Ensure and yogurt per ok from Dr Thompson.
[2023-03-14 10:40] LABS: Troponin I < 0.012 ng/mL (0.01-0.034)
--- NOTE | 2023-03-14 11:06 | PC.NURSE ---
Pt taken to Stress test via wheelchair
== END 2023-03-14 11:42 | disposition home or self-care (01) ==
PROVIDERS: Emergency Provider Emergency Medicine; Family Provider Family Medicine; PCP Family Medicine
DX: R07.89 Other chest pain (principal); J30.89 Other allergic rhinitis; R05.9 Cough, unspecified; Z20.822 Contact with and (suspected) exposure to COVID-19
CPT/HCPCS: 36415; 71045; 80053; 82550; 83690; 83735; 84484; 85025; 85610; 85730; 87633; 93005; 93010; 99284

== ENCOUNTER → 2023-03-20 10:59 | Outpatient (CLI) | payer MEDICARE, BC, SELFPAY ==
[2022-04-12 11:05] VITALS: BMI 25.9
--- NOTE | 2023-04-03 16:49 | DIAB.MNTFU ---
Follow-up Diabetes Medical Nutrition Therapy Assessment Name: Betsy Cordero Date: 03/20/23 Time: 6111-8697 Dx: Type II Diabetes Quick check-in today. Needs to r/s due to eye irritation with allergies. States PCP has doubled her glipizide to 10mg and she is taking nwith breakfast. BG was elevated at 190mg/dl today. Endorses increased water intake to 8c per day. Reduced viral snap portions. Has changed breakfast cereal portions as discussed. Anthropometrics: Ht: 68 Wt: 162# 01/2023 hysical Activity: 20 min wakl and 30 min stationary bike daily Self-Monitoring Blood Glucose: Checks FBG. Cont to have elevations, but hoping increased glipizide will aid in BG reduction. 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 repeat 6 months Acid reflux egd 2019 Angular cheilitis Chicken pox (~1950) Chronic vaginitis (04/01/16) Contusion of left thumb Diarrhea Dizziness Edema of both lower legs Edema of foot (11/01/15) Esophagitis Frequent UTI Green nails Hearing loss House dust mite allergy Hyperlipidemia Hypertension Hypomagnesemia Hyponatremia Lichen sclerosus of female genitalia Measles (~1950) Meningioma Mumps (~1950) Obstructive sleep apnea hypopnea, moderate Is getting a good night's sleep with CPAP Onychomycosis Oral thrush Osteoarthritis of left hip (04/01/16) Overweight (BMI 25.0-29.9) Palpitations Pollen allergy SBO (small bowel obstruction) Shortness of breath on exertion Snoring Syncope 4 episodes summer 2019, 06/2020 saw Its Time [facility] neurology, normal EEG 09/12 MRI pending. zio patch. Thumb fracture Thumb laceration Uncontrolled diabetes mellitus Venous telangiectasia of lower extremity Vision disorder Vulvitis Nutrition Rx: Carbohydrates: Meal: 30-45g Snack:15-30g Nutrition Diagnosis: - Excessive CHO intake r/t nutrition knowledge deficit aeb diet recall (breakfast)- improved - Predicted inadequate fluid intake r/t nutrition knowledge deficit aeb diet recall (may be making goal if having ensure daily)- improved Intervention: This participant was very receptive. Provided appropriate educational handouts. Discussed the following topics: Blood sugar discussion and increase in glipizide Progress in diet changes Created SMART goals for patient self-care and success. Goals: Reduced carbs at breakfast- met ask pharmacist about glipizide 30 min ac- met keep viral snaps to 2-4 max- met Pair carb and pro- not discussed Check a few pc BG- not discussed Follow-up: LAYO TURPIN follow-up in DSME classes and 1:1 after. Renetta Nolan RDN, [facility] Certified Diabetes Care and Insulation Technician P: [phone] Thank you for this referral
== END ==
PROVIDERS: Family Provider Family Medicine; PCP Family Medicine; Referring Provider Family Medicine; Visit Provider Family Medicine
DX: E11.9 Type 2 diabetes mellitus without complications (principal); Z79.84 Long term (current) use of oral hypoglycemic drugs; Z71.3 Dietary counseling and surveillance
CPT/HCPCS: 97803

== ENCOUNTER → 2023-03-25 09:24 | Outpatient (CLI) | payer MEDICARE, BC, SELFPAY ==
[2022-04-12 11:05] VITALS: BMI 25.9
--- NOTE | 2023-03-25 17:09 | DIAB.FU ---
Diabetes Education Class Series: Diabetes and Nutrition Name: Betsy Cordero Date:03/25/23 Time: 920a-11p Betsy presents for class 1 of 3 with her as a support person. Reports she has been working on healthy snacks. Class topics covered: ? Debunk nutrition myths and discuss how to sustain healthy eating long-term through moderation and variety ? Define macronutrients and determine their impact on blood sugars ? Discuss macronutrient pairing, Plate Method, and carb counting ? Review general recommendations for carbohydrates ? Discuss the role of fiber in diabetes and provide examples of sources ? Review heart health nutrition: fats, fiber, and sodium Follow-up: Diabetes Physiology and Medication Class in one week Renetta Nolan RDN, [facility] Registered Dietitian, Certified Diabetes Care and Outdoor Guide [phone] [email or web address]
== END ==
PROVIDERS: Family Provider Family Medicine; PCP Family Medicine; Referring Provider Family Medicine; Visit Provider Family Medicine
DX: E11.9 Type 2 diabetes mellitus without complications (principal); Z71.3 Dietary counseling and surveillance
CPT/HCPCS: G0109

== ENCOUNTER → 2023-04-22 12:46 | Outpatient (CLI) | payer MEDICARE, BC, SELFPAY ==
[2023-03-26 06:59] VITALS: BMI 25.9
--- NOTE | 2023-05-15 05:36 | DIAB.MNTFU ---
Follow-up Diabetes Medical Nutrition Therapy Assessment Name: Betsy Cordero Date: 04/22/23 Time: 105-150p Dx: Type II Diabetes Provider: Mark Meyer presents for DM follow-up. Reports following BRAT diet recently due to diarrhea from eating out. States more recently has been feeling better with more formed BM. Overall, being careful with carb portions, keeping rice to 1/2 cup at meals. Has been limiting certain foods due to GI upset. Plans to try and reincorporate. Limiting dairy and veggies. Betsy missed the last two DSME classes due to illness. Today she would like to review some of that content as well as discuss nutrition. Diet Recall: 7-9a: cheerios x 1/2 c with milk OR toast +/- jam snack: nothing or ensure 12-1p: chicken with egg and 8 crackers 3p: apple sauce or pear or ensure 5-6p: fish and sweet potatoes Beverages: water, ONS Anthropometrics: Ht: 68 Wt: 159.5# 03/2023 Physical Activity: Usually 20 min walk and 30 min stationary bike daily, d/t GI upset limited phys activity. Plans to restart today. Has PT twice per week. Self-Monitoring Blood Glucose: Checks FBG. Improved FBG, in goal at 110-130mg/dl per report. 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 probably benign repeat 6 months Acid reflux egd 2019 Angular cheilitis Chicken pox (~1950) Chronic vaginitis (04/01/16) Contusion of left thumb Diarrhea Dizziness Edema of both lower legs Edema of foot (11/01/15) Esophagitis Frequent UTI Green nails Hearing loss House dust mite allergy Hyperlipidemia Hypertension Hypomagnesemia Hyponatremia Lichen sclerosus of female genitalia Measles (~1950) Meningioma Mumps (~1950) Obstructive sleep apnea hypopnea, moderate Is getting a good night's sleep with CPAP Onychomycosis Oral thrush Osteoarthritis of left hip (04/01/16) Overweight (BMI 25.0-29.9) Palpitations Pollen allergy SBO (small bowel obstruction) Shortness of breath on exertion Snoring Syncope 4 episodes summer 2019, 06/2020 saw [facility]y, normal EEG 09/12 MRI pending. zio patch. Thumb fracture Thumb laceration Uncontrolled diabetes mellitus Venous telangiectasia of lower extremity Vision disorder Vulvitis Nutrition Rx: Carbohydrates: Meal: 30-45g Snack:15-30g Nutrition Diagnosis: - Self monitoring deficit r/t no pc readings aeb pt report Intervention: This participant was very receptive. Provided appropriate educational handouts. Discussed the following topics: Blood sugar review and trends.Benefit of some pc reading checks. Complication reduction, physical activity recs, emotional impact of DM, DM pathophysiology, resources BG goals per ADA slow incorporation of foods Physical activity plan and progress Created SMART goals for patient self-care and success. Goals: Pair carb and pro- met Check a few pc BG- in progress Try adding some veggies and cheese slowly- new Follow-up: LAYO TURPIN follow-up moise Nolan, LAYO, DYANA Certified Diabetes Care and Brake Repair Supervisor P: [phone] Thank you for this referral
== END ==
PROVIDERS: Family Provider Family Medicine; PCP Family Medicine; Referring Provider Family Medicine; Visit Provider Family Medicine
DX: E11.9 Type 2 diabetes mellitus without complications (principal); Z79.84 Long term (current) use of oral hypoglycemic drugs; Z71.3 Dietary counseling and surveillance
CPT/HCPCS: 97803

== ENCOUNTER 2023-05-01 08:08 | Day surgery (SDC) | payer MEDICARE, BC, SELFPAY ==
[2023-03-26 06:59] VITALS: BMI 25.9
[2023-05-01] VITALS (7 sets, daily range): BP systolic 88–129; BP diastolic 44–71; PULSE 65–86; RESP 13–16; TEMP 36.2–36.8; O2SAT 95–98; BMI 24.3
--- NOTE | 2023-05-01 08:48 | PM.HP.1 ---
History of Present Illness History of Present Illness Date Patient Seen: 05/01/23 Time Patient Seen: 08:48 Chief complaint: [facility] [place] Narrative: Betsy is an 82-year-old woman who is here today for a colonoscopy. I saw her about a year ago changes to her bowel function which seemed to resolve after increasing dietary fiber. She has tended to fluctuate between diarrhea constipation. She did have some recent black bowel movements which she thinks may be due to taking Pepto-Bismol. She reports that had had a normal colonoscopy about 3 years ago at [facility]. [facility] Medical History Abnormal mammogram of right breast (~04/2020) Acid reflux Angular cheilitis Chicken pox (~1949) Chronic vaginitis (04/01/16) Contusion of left thumb Diarrhea Dizziness Edema of both lower legs Edema of foot (11/01/15) Esophagitis Frequent UTI Green nails Hearing loss House dust mite allergy Hyperlipidemia Hypertension Hypomagnesemia Hyponatremia Lichen sclerosus of female genitalia Measles (~1949) Meningioma Mumps (~1949) Obstructive sleep apnea hypopnea, moderate Onychomycosis Oral thrush Osteoarthritis of left hip (04/01/16) Overweight (BMI 25.0-29.9) Palpitations Pollen allergy SBO (small bowel obstruction) Shortness of breath on exertion Snoring Syncope Thumb fracture Thumb laceration Uncontrolled diabetes mellitus Venous telangiectasia of lower extremity Vision disorder Vulvitis Surgical History Anesthesia History of left hip replacement Status post hernia repair (~1964) Family History Brother Age: 84 Detached retina Father Cancer Loud snoring Mother Hypertension Social History household members: spouse Smoking Status: Never smoker alcohol intake: current substance use type: does not use eating out: rarely or never Type(s) of exercise: bicycling Meds Home Medications and Allergies Home Medications Medication Instructions Recorded Confirmed Type CA PANTOTHENATE/FOLIC ACID/VIT 1 tab PO Q DAY ##0 09/13/11 04/17/23 History (MULTIVITAMIN) acidophilus 100 million 1 cap PO DAILY 05/26/19 04/17/23 History cell-pectin, citrus 10 mg capsule (Probiotic Acidophilus-Pectin) vitamin d 1 cap PO DAILY 05/26/19 04/17/23 History blood-glucose meter (Blood Glucose #1 ea 01/10/20 04/17/23 Rx Monitoring kit) cranberry 500 mg capsule 4,200 mg PO DAILY 06/05/20 04/17/23 History atenolol 50 mg tablet 50 mg PO BID #180 tabs 06/27/22 04/17/23 Rx atorvastatin 40 mg tablet 40 mg PO BEDTIME #90 tabs 06/27/22 04/17/23 Rx spironolactone 25 mg tablet See Rx Instructions .Route 06/27/22 04/17/23 Rx .COMPLEX #90 tabs omeprazole 20 mg capsule,delayed 20 mg PO DAILY #90 caps 10/25/22 04/17/23 Rx release ipratropium bromide 42 mcg (0.06 See Rx Instructions .Route 12/16/22 04/17/23 Rx %) nasal spray .COMPLEX #15 mL blood sugar diagnostic (Glucocard #100 ea 02/11/23 04/17/23 Rx Expression strips) benzonatate 100 mg capsule 100 mg PO TID PRN cough 7 days #21 03/19/23 04/17/23 Rx caps sodium sul 1.479 gram-potas ch See Rx Instructions PO PER PKG DIR 03/28/23 04/17/23 Rx 0.188 gram-magnes sul 0.225 gram #24 tabs tablet (Sutab) glipizide 10 mg tablet, extended 10 mg PO DAILY #90 tabs 03/31/23 04/17/23 Rx release 24 hr lancets 28 gauge (TechLITE Lancets) #100 ea 04/15/23 04/17/23 Rx clobetasol 0.05 % topical cream See Rx Instructions .Route 04/22/23 Rx .COMPLEX #120 grams lidocaine 5 % topical patch 1 patch topical DAILY #30 ea 04/24/23 Rx Allergies Allergy/AdvReac Type Severity Reaction Status Date / Time Sulfa (Sulfonamide Allergy Intermediate HIVES Verified 04/17/23 09:52 Antibiotics) ARB-Angiotensin Receptor AdvReac Severe syncope, Verified 04/17/23 09:52 Antagonist diarrhea metformin AdvReac Intermediate Diarrhea Verified 04/17/23 09:52 lisinopril AdvReac Mild COUGH Verified 05/01/23 07:11 Exam Vital Signs (past 8 hours): - 05/01/23 08:26 Temperature 97.2 F L Pulse Rate 72 Respiratory Rate 16 Blood Pressure 129/71 Pulse Oximetry 97 Oxygen Delivery Method Room Air Oxygen Delivery Method Room Air Const General: No acute distress Assessment & Plan Assessment and plan (1) Melena: Status: Acute Plan We reviewed the risks and benefits of colonoscopy due to melena and she would like to proceed.
[2023-05-01] MEDS: LACTATED RINGERS 1,000 ML 42 ML IV (08:55)
--- NOTE | 2023-05-01 09:33 | PM.OP.COLON ---
Operative Date/Time/Diagnoses Date of procedure: 05/01/23 Time of procedure: 09:33 Pre-op diagnosis: Melena Post-op diagnosis: same Procedure & Clinicians Study performed: Colonoscopy (aborted) Same procedure as scheduled: Yes Surgeon: Harry Roche Procedure Notes Procedure in detail: Surgeon: Harry Roche MD Anesthesia: Gina Gamboa CRNA Procedure: The patient was brought to the endoscopy suite, placed in left lateral decubitus position. The patient was connected to monitoring devices. A time-out was performed. Sedation was administered. Once the patient was adequately sedated, a digital rectal exam was performed and was normal. The scope was then inserted. There was significant solid stool burden in the rectum. Photographs were taken for documentation. The procedure was aborted due to the inadequate prep. Scope withdrawal time: Not applicable Sedation time: 4 minutes EBL: 0 Findings: Inadequate prep, aborted colonoscopy Post-procedure Disposition: PACU
== END 2023-05-01 10:00 | disposition home or self-care (01) ==
PROVIDERS: Family Provider Family Medicine; PCP Family Medicine; Referring Provider Surgery; Visit Provider Surgery
PROC: 0DJD8ZZ Inspection of Lower Intestinal Tract, Via Natural or Artificial Opening Endoscopic (ICD-10-PCS; CPT 45378; principal; 2023-05-01 09:15)
DX: K92.1 Melena (principal); Z53.8 Procedure and treatment not carried out for other reasons
CPT/HCPCS: 45378; J2704

== ENCOUNTER → 2023-05-12 10:33 | Outpatient (CLI) | payer MEDICARE, BC, SELFPAY ==
[2023-03-26 06:59] VITALS: BMI 25.9
== END ==
PROVIDERS: Family Provider Family Medicine; PCP Family Medicine; Visit Provider Nurse Practitioner Family
DX: N39.0 Urinary tract infection, site not specified (principal)
CPT/HCPCS: 87086; 87186

== ENCOUNTER → 2023-05-20 16:42 | Outpatient (CLI) | payer MEDICARE, BC, SELFPAY ==
[2023-03-26 06:59] VITALS: BMI 25.9
== END ==
PROVIDERS: Family Provider Family Medicine; PCP Family Medicine; Visit Provider Physician Assistant
DX: N39.0 Urinary tract infection, site not specified (principal)
CPT/HCPCS: 87077; 87086; 87147

== ENCOUNTER → 2023-05-22 10:39 | Outpatient (CLI) | payer MEDICARE, BC, SELFPAY ==
[2023-03-26 06:59] VITALS: BMI 25.9
--- NOTE | 2023-05-22 10:41 | DI.RAD.S_ITS ---
PROCEDURE: XR LUMBAR SPINE MIN 4V INDICATIONS: back pain TECHNIQUE: 5 views of the lumbar spine were acquired, including bilateral oblique views. COMPARISON: [facility], , L-SPINE 2-3 VIEWS, 01/23/2015, 11:40. FINDINGS: Bones: 5 nonrib-bearing vertebrae are present. Mild left convexity curvature of the lumbar spine centered at L4-L5. No lumbar vertebral body compression fractures identified. There is moderate compression deformity of T12 with approximately 50 percent vertebral body height loss, new since 2014. Moderate multilevel degenerative changes with disc height loss, endplate spurring, and facet arthropathy. No definite or obvious pars defects identified on oblique images. Suspect at least mild multilevel bony foraminal narrowing. Soft tissues: Overlying bowel gas pattern is normal. No suspicious soft tissue calcifications. IMPRESSION: 1. Multilevel degenerative changes of the lumbar spine. 2. Moderate compression deformity of T12 new since 2014. Dictated by: Dario Glez M.D. on 05/22/2023 at 16:38 Approved by: Dario Glez M.D. on 05/22/2023 at 16:43
== END ==
PROVIDERS: Family Provider Family Medicine; PCP Family Medicine; Referring Provider Physician Assistant; Visit Provider Physician Assistant
DX: M47.816 Spondylosis without myelopathy or radiculopathy, lumbar region (principal); M43.8X4 Other specified deforming dorsopathies, thoracic region; M54.50 Low back pain, unspecified
CPT/HCPCS: 72110

== ENCOUNTER → 2023-06-10 13:21 | Outpatient (CLI) | payer MEDICARE, BC, SELFPAY ==
[2023-03-26 06:59] VITALS: BMI 25.9
--- NOTE | 2023-06-10 | DI.MG.S_ITS ---
BILATERAL DIGITAL SCREENING MAMMOGRAM 3D/2D WITH CAD: 06/10/2023 CLINICAL: Routine screening. Family history of breast cancer. Comparison is made to exams dated: 06/04/2022 mammogram, 05/01/2020 mammogram, and 04/29/2019 mammogram - [facility]. Both breasts are heterogeneously dense, which may obscure small masses (category c / 51-75% glandular tissue). Current study was also evaluated with a Computer Aided Detection (CAD) system. There are benign calcifications in both breasts. No significant masses, calcifications, or other findings are seen in either breast. There has been no significant interval change. IMPRESSION: BENIGN There is no mammographic evidence of malignancy. A 1 year screening mammogram is recommended. Based on the Tyrer Cuzick model (a risk assessment model) the patient's lifetime risk is 1.7% and her 10 year risk is 0.0%. According to the ACR, ACS, and NCCN guidelines, an annual breast MRI exam along with mammogram is recommended if the patient's lifetime risk is 20% or greater. This exam was interpreted at Station ID: [id number]. NOTE: For mammograms, a report in lay terms will be sent to the patient. Approximately 15% of breast malignancies will not be visualized mammographically. In the management of a palpable breast mass, a negative mammogram must not discourage biopsy of a clinically suspicious lesion. Electronically Signed By: Judy sanchez/hazel:06/10/2023 16:28:53 copy to: AYLEEN CALI letter sent: Normal Exam ACR BI-RADS Category 2: Benign Finding(s) [id number]
== END ==
PROVIDERS: Family Provider Family Medicine; PCP Family Medicine; Referring Provider Family Medicine; Visit Provider Family Medicine
DX: Z12.31 Encounter for screening mammogram for malignant neoplasm of breast (principal); Z80.3 Family history of malignant neoplasm of breast
CPT/HCPCS: 77063; 77067

== ENCOUNTER → 2023-06-16 15:16 | Outpatient (CLI) | payer MEDICARE, BC, SELFPAY ==
[2023-03-26 06:59] VITALS: BMI 25.9
--- NOTE | 2023-06-16 15:18 | DI.RAD.S_ITS ---
PROCEDURE: XR LUMBAR SPINE 2-3V INDICATIONS: fall on back TECHNIQUE: 3 views of the lumbar spine were acquired. COMPARISON: [facility], [place], XR LUMBAR SPINE MIN 4V, 05/22/2023, 10:48. [facility], [place], L-SPINE 2-3 VIEWS, 01/23/2015, 11:40. FINDINGS: Bones: 5 [id number] vertebrae are present. Mild levocurvature of the lumbar spine centered at L4-5.. Again seen compression deformity T12 vertebral body. There is new height loss at L1 consistent with mild compression deformity of approximately 25% height loss. No suspicious bony lesions. Decreased osseous mineralization. Multilevel degenerative changes of the lumbar spine with facet arthropathy anterior osteophyte formation and disc height loss common this is worse L4-L5. Soft tissues: Overlying bowel gas pattern is normal. No suspicious soft tissue calcifications. Partially visualized left hip arthroplasty. IMPRESSION: 1. Multilevel degenerative changes of the lumbar spine. There is diffusely decreased osseous mineralization. 2. New mild compression deformity of the L1 vertebral body with approximately 25% height loss. Stable compression deformity of T12 with approximately 50% height loss.. Dictated by: Gallito Michaels M.D. on 06/16/2023 at 16:21 Approved by: Gallito Michaels M.D. on 06/16/2023 at 16:24
== END ==
PROVIDERS: Family Provider Family Medicine; PCP Family Medicine; Referring Provider Family Medicine; Visit Provider Family Medicine
DX: M47.816 Spondylosis without myelopathy or radiculopathy, lumbar region (principal); M43.9 Deforming dorsopathy, unspecified
CPT/HCPCS: 72100

== ENCOUNTER → 2023-06-23 15:46 | Outpatient (CLI) | payer MEDICARE, BC, SELFPAY ==
[2023-03-26 06:59] VITALS: BMI 25.9
[2023-06-23 16:39] LABS: Add Manual Diff / Slide Review NO; Basophils Absolute Auto 0 /uL (0-100); Basophils Percent Auto 0.2 % (0-2); Eosinophils Absolute Auto 100 /uL (0-450); Hematocrit 41.1 % (36-46); Hemoglobin 14.5 g/dL (12.0-16.0); Lymphocytes Absolute Auto 2600 /uL (1100-4500); Mean Corpuscular HGB Conc 35.3 % (30-36); Mean Corpuscular Hemoglobin 31.2 PG (26-34); Mean Corpuscular Volume 88.4 fL (80-100); Monocytes Absolute Auto 900 /uL (0-900); Monocytes Percent Auto 10.6 % (3-14); Neutrophils Absolute Auto 4600 /uL (1500-7000); Neutrophils Percent Auto 56.2 % (50-75); Platelet Count 233 X10^3/uL (150-400); Red Blood Cell Count 4.64 X10^6/uL (4.0-5.2); White Blood Cell Count 8.2 X10^3/uL (4.5-11.0)
[2023-06-23 17:36] LABS: Alanine Aminotransferase 26 IU/L (<35); Albumin 3.9 g/dL (3.5-5.0); Albumin Globulin Ratio 1.3 (1.0-2.8); Alkaline Phosphatase 107 U/L (38-126); Aspartate Aminotransferase 34 IU/L (14-36); BUN Creatinine Ratio 21.6 (6-22); Bilirubin Total 0.4 mg/dL (0.2-1.3); Blood Urea Nitrogen 16 mg/dL (7-17); Calcium 9.1 mg/dL (8.4-10.2); Carbon Dioxide 29 mmol/L (22-32); Chloride 97 mmol/L (98-107); Estimated Glomerular Filt Rate > 60 mL/min (>60); Globulin 2.9 g/dL (1.7-4.1); Glucose 80 mg/dL (80-110); HEMOLYSIS < 15 (0-50); Potassium 4.3 mmol/L (3.4-5.1); Sodium 133 mmol/L (137-145); Total Protein 6.8 g/dL (6.3-8.2)
[2023-06-23 17:43] LABS: Creatinine Urine Random 62.2 mg/dL
[2023-06-23 17:48] LABS: Microalbumi Creatinin Ratio Ur 14.4 ug/mg CR (<30); Microalbumin Urine Random 0.9 mg/dL (0-1.6)
[2023-06-24 02:57] LABS: x Labcorp Estim. Avg Glu (eAG) 128 mg/dL (.); x Labcorp Hemoglobin A1c 6.1 % (4.8-5.6)
== END ==
PROVIDERS: Family Provider Family Medicine; PCP Family Medicine; Referring Provider Family Medicine; Visit Provider Family Medicine
DX: R19.7 Diarrhea, unspecified; E78.5 Hyperlipidemia, unspecified; I10 Essential (primary) hypertension; K92.1 Melena; E11.9 Type 2 diabetes mellitus without complications
CPT/HCPCS: 36415; 80053; 82043; 82570; 83036; 85025

== ENCOUNTER → 2023-06-25 11:39 | Outpatient (CLI) | payer MEDICARE, BC, SELFPAY ==
[2023-03-26 06:59] VITALS: BMI 25.9
--- NOTE | 2023-06-25 11:57 | DI.DEXA.S_ITS ---
Bone Density Report Name: NUHA FERNANDEZ Age: 82 Sex: Female Ethnicity: White Date of : 1940 Indication: postmenopausal; screening for osteoporosis; prior fracture; Referring Provider: BLAISE STEPHENSON Study: Bone densitometry was performed. Exam Date: June 25, 2023 Accession number: [id number] Bone Density: Region BMD T-score Z-score Classification AP Spine(L1-L4) 1.007 -0.4 2.4 Normal Femoral Neck (Right) 0.550 -2.7 -0.3 Osteoporosis Total Hip (Right) 0.714 -1.9 0.3 Osteopenia Total Forearm (Left) 0.489 -1.7 1.5 Osteopenia 1/3 Forearm (Left) 0.557 -2.3 1.0 Osteopenia UD Forearm (Left) 0.392 -0.9 1.5 Normal World Health Organization criteria for BMD impression classify patients as: Normal (T-score at or above -1.0), Osteopenia (T-score between -1.0 and -2.5), or Osteoporosis (T-score at or below -2.5). 10-year Fracture Risk: FRAX not reported because: Some T-score for Spine Total or Hip Total or Femoral Neck at or below -2.5 Prior hip or vertebral fracture Previous Exams: -- Region Exam Age BMD T-score BMD Change BMD Change Date g/cm2 vs Baseline vs Previous -- AP Spine (L1-L4) 06/25/2023 82 1.007 -0.4 -0.268 (-21.0%)# -0.268 (-21.0%)# 02/24/2019 78 1.275 2.1 Total Hip(Right) 06/25/2023 82 0.714 -1.9 -0.245 (-25.6%)# -0.245 (-25.6%)# 02/24/2019 78 0.959 0.1 -- *Denotes significance at 95% confidence level, LSC for AP Spine = 0.022 g/cm2, LSC for Total Hip = 0.027 g/cm2 # Denotes dissimilar scan types or analysis methods Impression: The patient has established osteoporosis, based on the Right Femoral Neck T-score and the existence of a prior fracture. The patient has risk factors, including: previous fracture. No significant bone loss was observed. Discussion: HIGH RISK OF FRACTURE. BONE DENSITY IS UNDESIRABLY LOW AT ONE OR MORE SKELETAL SITES, CONSISTENT WITH POSTMENOPAUSAL OSTEOPOROSIS. This patient's lowest T-score, in a patient who has previously fractured, meets the World Health Organization's (WHO) criteria for severe osteoporosis. In untreated patients, the risk of osteoporotic fracture increases approximately two-fold for each 1.0 SD decrease in T-score. Low bone density is not the only risk factor for fracture; also consider factors such as patient's age, frailty or poor health, risk of falling, risk of injury, previous osteoporotic fracture, family history of osteoporosis, cigarette smoking, low body weight, etc. Not everyone with low bone mineral density has osteoporosis; osteomalacia and other metabolic bone disorders should also be considered. Patients who have osteoporosis should be evaluated for specific diseases and conditions (secondary causes) that may cause or contribute to bone loss. The [place] [employer] Clinical Endocrinologists (AACE) and National Osteoporosis Foundation (NOF) recommend pharmacologic intervention for all postmenopausal women with a previous hip or vertebral fracture and a T-score in this range. The patient should follow a healthful lifestyle (good nutrition with adequate calcium and vitamin D, and appropriate weight-bearing exercise). Follow-Up: Consider a repeat BMD and Vertebral Fracture Assessment (VFA) exam in 2 years or sooner if medically necessary, to reassess this patient's status. Reported by: TRAMAINE GONZALEZ M.D. on 06/25/2023 12:08:00 PM.
== END ==
PROVIDERS: Family Provider Family Medicine; PCP Family Medicine; Referring Provider Family Medicine; Visit Provider Family Medicine
DX: Z13.820 Encounter for screening for osteoporosis (principal); M81.0 Age-related osteoporosis without current pathological fracture; S32.000A Wedge compression fracture of unspecified lumbar vertebra, initial encounter for closed fracture; Z78.0 Asymptomatic menopausal state
CPT/HCPCS: 77080; 77081

== ENCOUNTER → 2023-07-12 08:01 | Outpatient (CLI) | payer MEDICARE, BC, SELFPAY ==
[2023-03-26 06:59] VITALS: BMI 25.9
[2023-07-12 09:13] LABS: Add Manual Diff / Slide Review NO; Basophils Absolute Auto 0 /uL (0-100); Basophils Percent Auto 0.2 % (0-2); Eosinophils Absolute Auto 100 /uL (0-450); Eosinophils Percent Auto 1.1 % (2-4); Hematocrit 43.4 % (36-46); Hemoglobin 15.4 g/dL (12.0-16.0); Lymphocytes Absolute Auto 2500 /uL (1100-4500); Lymphocytes Percent Auto 30.9 % (25-40); Mean Corpuscular HGB Conc 35.5 % (30-36); Mean Corpuscular Hemoglobin 31.2 PG (26-34); Mean Corpuscular Volume 87.8 fL (80-100); Monocytes Absolute Auto 1000 /uL (0-900); Monocytes Percent Auto 11.9 % (3-14); Neutrophils Absolute Auto 4500 /uL (1500-7000); Neutrophils Percent Auto 55.9 % (50-75); Platelet Count 188 X10^3/uL (150-400); Red Blood Cell Count 4.94 X10^6/uL (4.0-5.2); Red Cell Distribution Width 13.3 % (11.6-14.8)
[2023-07-12 09:39] LABS: INR 1.2 (0.9-1.3); Prothrombin Time 13.6 SECONDS (10.1-12.7)
[2023-07-12 09:41] LABS: PTT Partial Thromboplastin Tim 38 SECONDS (26-36)
== END ==
PROVIDERS: Family Provider Family Medicine; PCP Family Medicine; Referring Provider Family Medicine; Visit Provider Family Medicine
DX: T14.8XXA Other injury of unspecified body region, initial encounter (principal)
CPT/HCPCS: 36415; 85025; 85610; 85730

== ENCOUNTER → 2023-10-24 09:45 | Outpatient (CLI) | payer MEDICARE, BC, SELFPAY ==
[2023-03-26 06:59] VITALS: BMI 25.9
== END ==
PROVIDERS: Family Provider Family Medicine; PCP Family Medicine; Visit Provider Physician Assistant
DX: R35.0 Frequency of micturition (principal)
CPT/HCPCS: 87077; 87086; 87147; 87186

== ENCOUNTER → 2024-01-15 09:45 | Outpatient (CLI) | payer MEDICARE, BC, SELFPAY ==
[2023-03-26 06:59] VITALS: BMI 25.9
--- NOTE | 2024-01-15 09:47 | DI.RAD.S_ITS ---
PROCEDURE: XR ACUTE ABDOMEN SERIES INDICATIONS: Abdominal pain R side; N/V TECHNIQUE: One view chest and two views of the abdomen were acquired. COMPARISON: [facility], [place], XR ACUTE ABDOMEN SERIES, 04/04/2022, 12:56. FINDINGS: Surgical changes and devices: None. Chest: Lungs are clear. Heart size is normal. No pleural effusions. No pneumoperitoneum. Abdomen: Prominent central bowel gas. Moderate fecal debris in the rectum. Bones: No suspicious bony lesions. IMPRESSION: Prominent centralized of bowel gas is nonspecific. May reflect loop of colon or distended stomach. Consider follow-up CT evaluation Approved by: Deangelo Mccoy M.D. on 01/15/2024 at 19:10
== END ==
LOC: RAD 09:46
PROVIDERS: Family Provider Family Medicine; PCP Family Medicine; Referring Provider Physician Assistant; Visit Provider Physician Assistant
DX: R10.9 Unspecified abdominal pain (principal); R11.2 Nausea with vomiting, unspecified
CPT/HCPCS: 74022

== ENCOUNTER → 2024-02-09 12:47 | Outpatient (CLI) | payer MEDICARE, BC, SELFPAY ==
[2023-03-26 06:59] VITALS: BMI 25.9
[2024-02-09 13:02] LABS: Appearance Urine UA CLOUDY; Bilirubin Urine UA NEGATIVE (NEGATIVE); Color Urine UA YELLOW; Glucose Urine UA NEGATIVE (Negative); Ketones Urine UA NEGATIVE (NEGATIVE); Leukocyte Esterase Urine UA 3+ (NEGATIVE); Nitrite Urine UA NEGATIVE (Negative); Occult Blood Urine UA 1+ (Negative); Protein Urine UA TRACE (Negative); Urobilinogen Urine UA 0.2 E.U./dL (0.2)
[2024-02-09 13:04] LABS: Bacteria Urine Few (2-10); Culture Indicated Urine Specimen Cultured; RBC Urine 1-5/HPF (0-5/HPF); Squamous Epithelial Cell Urine 1-5 /HPF (0-5/HPF); Urine Volume Low Vol <10mL unspun; WBC Urine 10-30/HPF (0-5/HPF)
== END ==
PROVIDERS: Family Provider Family Medicine; PCP Family Medicine; Visit Provider Physician Assistant Medical
DX: R82.90 Unspecified abnormal findings in urine (principal); R33.9 Retention of urine, unspecified
CPT/HCPCS: 81001; 87077; 87086; 87186

== ENCOUNTER → 2024-02-12 14:20 | Outpatient (CLI) | payer MEDICARE, BC, SELFPAY ==
[2023-03-26 06:59] VITALS: BMI 25.9
[2024-02-12 19:27] LABS: Occult Blood 1 Negative (Negative); Occult Blood 2 Negative (Negative); Occult Blood 3 Negative (Negative)
[2024-02-14 16:21] LABS: C difficie Toxins A and B, EIA Negative (Negative)
[2024-02-18 07:13] LABS: Lactoferrin, Fecal Quant 7.92 ug/mL(g) (0.00-7.24)
[2024-02-18 12:43] LABS: Pancreatic Elastase, Fecal 165 (>200)
== END ==
LOC: LAB 14:21
PROVIDERS: Family Provider Family Medicine; PCP Family Medicine; Referring Provider Family Medicine; Visit Provider Family Medicine
DX: R19.7 Diarrhea, unspecified (principal)
CPT/HCPCS: 82270; 82656; 83631; 87177; 87324

== ENCOUNTER → 2024-02-21 12:11 | Outpatient (CLI) | payer MEDICARE, BC, SELFPAY ==
[2023-03-26 06:59] VITALS: BMI 25.9
== END ==
PROVIDERS: Family Provider Family Medicine; PCP Family Medicine; Visit Provider Nurse Practitioner Family
DX: R30.0 Dysuria (principal)
CPT/HCPCS: 87086; 87147

== ENCOUNTER → 2024-03-16 15:49 | Outpatient (CLI) | payer MEDICARE, BC, SELFPAY ==
[2023-03-26 06:59] VITALS: BMI 25.9
[2024-03-16 21:19] LABS: Bacteria Urine Many (>30); Culture Indicated Urine Specimen Cultured; RBC Urine 0-1/HPF (0-5/HPF); Squamous Epithelial Cell Urine 0-1 /HPF (0-5/HPF); Urine Volume 10mL (spun); WBC Urine 30-100/HPF (0-5/HPF)
== END ==
PROVIDERS: Family Provider Family Medicine; PCP Family Medicine; Visit Provider Physician Assistant
DX: R82.90 Unspecified abnormal findings in urine (principal); K52.9 Noninfective gastroenteritis and colitis, unspecified; R30.0 Dysuria
CPT/HCPCS: 81015; 87077; 87086; 87186

== ENCOUNTER 2024-04-06 13:04 | Day surgery (SDC) | payer MEDICARE, BC, SELFPAY ==
[2023-03-26 06:59] VITALS: BMI 25.9
[2024-04-06] VITALS (7 sets, daily range): BP systolic 98–160; BP diastolic 61–80; PULSE 75–86; RESP 11–27; TEMP 36.1–36.2; O2SAT 97–100
--- NOTE | 2024-04-06 | PATH_ITS ---
[facility] Accession Number: [id number] No. of containers..01 Tissue . 01 Material submitted: . colon - RANDOM COLON BIOPSIES . 01 Diagnosis: RANDOM COLON, BIOPSIES: Colonic mucosa with no diagnostic abnormality. Negative for active, chronic, and microscopic colitis. Negative for dysplasia and malignancy. [facility] 04/13/2024 1141 Local . 01 Electronically signed: . Judy Srniivasan MD, Pathologist NPI- [id number] . 01 Gross description: . RANDOM COLON BIOPSIES: Received in formalin are 4 fragment(s) of villagomez, soft tissue measuring 0.2 x 0.2 x 0.2 cm to 0.3 x 0.2 x 0.2 cm submitted entirely in 1 cassette(s) /KUMAR 04/08/2024 2211 Local . 01 Pathologist provided ICD-10: R19.4 . 01 CPT . 583994 Specimen Comment: A courtesy copy of this report has been sent to [phone] Performed at: 01 [facility] [address] [place] [address] [id number] MD Shaun Jean MD Phone: [phone]
--- NOTE | 2024-04-06 12:34 | PM.PREOP ---
Pre-operative Note Interval Note History & Physical reviewed/Exam performed by Physician: Yes Changes to H&P: No H&P completed within 30 days and has changed as indicated here:: Risks, benefits, alternatives explained. Risks including but not limited to myocardial infarction, aspiration, bleeding, pain, missed lesion, incomplete examination, need for further radiographic studies, intestinal injury, and need for major abdominal surgery were discussed. All questions were answered to their satisfaction, and they are in agreement with this plan.
[2024-04-06] MEDS: FLEETS ENEMA 1 EACH PR (13:30)
[2024-04-06] MEDS: LACTATED RINGERS 1,000 ML 42 ML IV (13:31)
--- NOTE | 2024-04-06 14:35 | P.OP.EGD&C_ITS ---
Operative Date/Time/Diagnoses Date of procedure: 04/06/24 Time of procedure: 14:35 Pre-op diagnosis: Chronic diarrhea Procedure & Clinicians Study performed: Diagnostic colonoscopy Same procedure as scheduled: Yes Indications: Chronic diarrhea Surgeon: Mikhail Diaz Procedure Notes Procedure in detail: The history and physical was performed/updated and the patient is ASA class is 2. The procedure was discussed in detail with the patient. Potential risks complications including infection, bleeding, missed diagnosis, perforation, need for surgery, and were explained. Their questions were answered and informed consent was obtained. Patient was brought to the procedure room and placed standard monitoring equipment. The patient's vital signs were monitored continuously throughout the entire procedure. Prior to starting time-out was performed. The patient was placed in the left lateral recumbent position. Procedural sedation was administered by anesthesia. Examination began with a thorough inspection of the perianal area there was no evidence of fissures, fistulae, external hemorrhoids or cutaneous malignancy. The colonoscopy scope was then placed into the anal canal and was advanced to the cecum, which was identified by the ileocecal va lve, the appendiceal orifice and the confluence of the taenia. The scope was then slowly withdrawn examining colon thoroughly in all directions, irrigating it of any residual stool. The scope was retroflexed within the rectum The patient tolerated the procedure well. They will be discharged once criteria are met. The prep was of good/excellent quality. The withdrawl time was 7 minutes. FINDINGS * Tortuous colon without masses or polyps * No obvious pathology. Random colonic biopsies taken Specimen(s): other (Random colon biopsies) Impression: Normal colonoscopy Post-procedure Plan for aftercare: Follow up biopsy Disposition: same day surgery
== END 2024-04-06 15:10 | disposition home or self-care (01) ==
PROVIDERS: Family Provider Family Medicine; PCP Family Medicine; Referring Provider Surgery; Visit Provider Surgery
PROC: 0DJD8ZZ Inspection of Lower Intestinal Tract, Via Natural or Artificial Opening Endoscopic (ICD-10-PCS; CPT 45378; principal; 2024-04-06 14:00)
DX: K52.9 Noninfective gastroenteritis and colitis, unspecified (principal)
CPT/HCPCS: 45380; J2704

== ENCOUNTER → 2024-04-12 11:58 | Outpatient (CLI) | payer MEDICARE, BC, SELFPAY ==
[2023-03-26 06:59] VITALS: BMI 25.9
== END ==
PROVIDERS: Family Provider Family Medicine; PCP Family Medicine; Visit Provider Physician Assistant Medical
DX: R35.0 Frequency of micturition (principal)
CPT/HCPCS: 87086

== ENCOUNTER 2024-04-17 19:36 | Observation (INO) | payer MEDICARE, BC, SELFPAY ==
[2023-03-26 06:59] VITALS: BMI 25.9
[2024-04-17] VITALS (11 sets, daily range): BP systolic 125–155; BP diastolic 61–80; PULSE 80–95; RESP 15; TEMP 36.6; O2SAT 94–98; BMI 19.8
[2024-04-17 20:09] LABS: Add Manual Diff / Slide Review NO; Basophils Absolute Auto 0 /uL (0-100); Basophils Percent Auto 0.2 % (0-2); Eosinophils Absolute Auto 0 /uL (0-450); Eosinophils Percent Auto 0.2 % (2-4); Hematocrit 40.8 % (36-46); Hemoglobin 13.9 g/dL (12.0-16.0); Lymphocytes Absolute Auto 1500 /uL (1100-4500); Lymphocytes Percent Auto 12.9 % (25-40); Mean Corpuscular HGB Conc 34.1 % (30-36); Mean Corpuscular Hemoglobin 31.3 PG (26-34); Mean Corpuscular Volume 91.8 fL (80-100); Monocytes Absolute Auto 1400 /uL (0-900); Monocytes Percent Auto 11.8 % (3-14); Neutrophils Absolute Auto 8700 /uL (1500-7000); Neutrophils Percent Auto 74.9 % (50-75); Platelet Count 159 X10^3/uL (150-400); Red Blood Cell Count 4.44 X10^6/uL (4.0-5.2); Red Cell Distribution Width 13.4 % (11.6-14.8); White Blood Cell Count 11.7 X10^3/uL (4.5-11.0)
[2024-04-17 20:17] LABS: Alanine Aminotransferase 23 IU/L (<35); Albumin 4.2 g/dL (3.5-5.0); Albumin Globulin Ratio 1.6 (1.0-2.8); Alkaline Phosphatase 119 U/L (38-126); Aspartate Aminotransferase 31 IU/L (14-36); BUN Creatinine Ratio 28.8 (6-22); Bilirubin Total 1.3 mg/dL (0.2-1.3); Blood Urea Nitrogen 17 mg/dL (7-17); Calcium 8.9 mg/dL (8.4-10.2); Carbon Dioxide 24 mmol/L (22-32); Chloride 101 mmol/L (98-107); Estimated Glomerular Filt Rate > 60 mL/min (>60); Globulin 2.6 g/dL (1.7-4.1); Glucose 127 mg/dL (80-110); HEMOLYSIS < 15 (0-50); Lipase 34 U/L (23-300); Potassium 3.7 mmol/L (3.4-5.1); Sodium 133 mmol/L (137-145); Total Protein 6.8 g/dL (6.3-8.2)
--- NOTE | 2024-04-17 22:43 | ED_ITS ---
HPI - Nausea/Vomiting/Diarrhea General Chief complaint: Nausea/Vomiting/Diarrhea Stated complaint: diarrhea 3 days Time Seen by Provider: 04/17/24 22:35 Source: patient Mode of arrival: EMS Limitations: no limitations History of Present Illness HPI Narrative: 83-year-old female with a history of type 2 diabetes, chronic diarrhea, hypertension who presents with complaint of acute on chronic diarrhea and increased lower abdominal pain. Patient states she has has a diarrhea on and off for years. She actually had a colonoscopy in the last couple weeks she did not have a bowel movement for several days afterwards and then started to have a large bowel movement in his had frequent diarrhea particularly at nighttime. She states she will have episodes about every 2 hours, they are watery but with some mucus, no black or blood. She states larger amounts of stool. She has not had any fevers. She has not had any nausea or vomiting. No urinary symptoms currently. She states her rectal area is a bit raw from the frequent diarrhea. 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 She is on Creon and cholestyramine she states this was recommended by 1 of her primary care providers they thought it would help with her diarrhea. She is to be on glipizide but that has been stopped.. She has had some stool studies in January but does not appear she has had a GI panel. She does note she has had increased pain in her lower abdomen she does sometimes has this but it was more intense this evening which prompted her to come. She states it is improved at this time. Related Data Home Medications Medication Instructions Recorded Confirmed CA PANTOTHENATE/FOLIC ACID/VIT 1 tab PO Q DAY ##0 09/13/11 04/12/24 (MULTIVITAMIN) acidophilus 100 million 1 cap PO DAILY 05/26/19 04/12/24 cell-pectin, citrus 10 mg capsule (Probiotic Acidophilus-Pectin) vitamin d 1 cap PO DAILY 05/26/19 04/12/24 cranberry 500 mg capsule 4,200 mg PO DAILY 06/05/20 04/12/24 estradiol 0.01% (0.1 mg/gram) vaginal 10/24/23 04/12/24 vaginal cream azelastine 137 mcg (0.1 %) nasal intranasal 02/19/24 04/12/24 spray aerosol Previous Rx's Medication Instructions Recorded blood-glucose meter (Blood Glucose #1 ea 01/10/20 Monitoring kit) blood sugar diagnostic (Glucocard #100 ea 02/11/23 Expression strips) clobetasol 0.05 % topical cream See Rx Instructions .Route 04/22/23 .COMPLEX #120 grams lancets 28 gauge (TechLITE Lancets) #100 ea 06/02/23 atorvastatin 40 mg tablet 40 mg PO BEDTIME #90 tabs 07/10/23 spironolactone 25 mg tablet See Rx Instructions .Route 07/10/23 .COMPLEX #90 tabs Disabled Parking Permit #1 ea 09/26/23 omeprazole 20 mg capsule,delayed 20 mg PO DAILY #90 caps 10/07/23 release atenolol 50 mg tablet 25 mg (1/2 x 50 mg) .Route 02/19/24 .COMPLEX #180 tabs [id number] 1 cap PO TID #90 caps 02/19/24 12,000-38,000-60,000 unit capsule,delayed rel (Creon) tramadol 50 mg tablet 50 mg PO BID PRN pain #48 tabs 03/19/24 ipratropium bromide 42 mcg (0.06 See Rx Instructions .Route 03/22/24 %) nasal spray .COMPLEX #15 mL nitrofurantoin 100 mg PO Q12H 7 days #14 caps 04/12/24 monohydrate/macrocrystals 100 mg capsule (Macrobid) Allergies Allergy/AdvReac Type Severity Reaction Status Date / Time Sulfa (Sulfonamide Allergy Intermediate HIVES Verified 04/17/24 19:38 Antibiotics) ARB-Angiotensin Receptor AdvReac Severe syncope, Verified 04/17/24 19:38 Antagonist diarrhea metformin AdvReac Intermediate Diarrhea Verified 04/17/24 19:38 lisinopril AdvReac Mild COUGH Verified 04/17/24 19:38 Review of Systems Review of Systems ROS Unobtainable: All systems reviewed & are unremarkable except as noted in HPI and below Patient History Medical History Urinary retention Meningioma SBO (small bowel obstruction) Uncontrolled diabetes mellitus Venous telangiectasia of lower extremity House dust mite allergy Pollen allergy Edema of both lower legs Thumb laceration Thumb fracture Contusion of left thumb Green nails Obstructive sleep apnea hypopnea, moderate Acid reflux Diarrhea Esophagitis Syncope Shortness of breath on exertion Palpitations Dizziness Hyponatremia Hypomagnesemia Snoring Abnormal mammogram of right breast (~04/2020) Oral thrush Overweight (BMI 25.0-29.9) Angular cheilitis Onychomycosis Vulvitis Lichen sclerosus of female genitalia Vision disorder Mumps (~1949) Measles (~1949) Chicken pox (~1949) Hearing loss Frequent UTI Hypertension Hyperlipidemia Chronic vaginitis (04/01/16) Osteoarthritis of left hip (04/01/16) Edema of foot (11/01/15) Surgical History History of left hip replacement Anesthesia Status post hernia repair (~1964) Family History Brother Age: 85 Detached retina Father Cancer Loud snoring Mother Hypertension Social History marital status: household members: spouse lives independently: Yes occupational status: previously employed Smoking Status: Never smoker alcohol intake: never substance use type: does not use eating out: rarely or never Type(s) of exercise: bicycling Smoking Status: Never smoker alcohol intake frequency: holidays/special occasions only Substance Use Type: does not use Exam Narrative Exam Narrative: GENERAL: Alert and oriented x three, female in mild distress. HEENT: Head normocephalic, atraumatic, EOMI, pupils reactive, face symmetric, moist mucous membranes NECK: Supple, full range of motion CARDIOVASCULAR: Regular rate and rhythm without murmurs, rubs or gallops. RESPIRATORY: Breath sounds equal bilaterally, no wheezes rales or rhonchi. ABDOMEN: Soft, nontender. Nondistended. Normoactive bowel sounds all 4 quadrants. No guarding or rebound, rigidity, no mass, digital rectal exam patient has some erythema and breakdown around the rectum, few external hemorrhoids that are not soft, she is some mild generalized tenderness. Digital rectal exam no mass, unable to palpate any stool. : No CVA tenderness EXTREMITIES: Normal range of motion, no clubbing or edema. Neurovascularly intact NEUROLOGICAL: Cranial nerves II through XII grossly intact. Moving all extremities SKIN: Warm, dry, no petechiae, no rashes or lesions. Initial Vital Signs Initial Vital Signs: Vital Signs Temperature 97.8 F 04/17/24 19:38 Pulse Rate 80 04/17/24 19:38 Respiratory Rate 15 04/17/24 19:38 Blood Pressure 145/71 H 04/17/24 19:38 Pulse Oximetry 97 04/17/24 19:38 Oxygen Delivery Method Room Air 04/17/24 19:38 Course Orders Ordered: ED Orders 04/17/24 23:02 CT abdomen pelvis w con Stat 04/18/24 00:15 GI Panel (Film Array) Stat Acetaminophen (Acetaminophen 325 Mg Tablet) 650 mg PO Q6H PRN PRN Reason: Fever/Mild Pain (1-3) Al Hydrox/Mg Hydrox/Simethicone (Mag Hydrox/Alum/Simeth 30 Ml Udc) 30 ml PO Q6HR PRN PRN Reason: heartbun Atenolol (Atenolol 50 Mg Tablet) 25 mg PO .COMPLEX CUBA Hydromorphone HCl (Hydromorphone 0.5 Mg Inj) 0.5 mg IV Q2H PRN PRN Reason: Pain, Severe (7-10) Sodium Chloride (Normal Saline 0.9%) 1,000 mls @ 150 mls/hr IV CONT CUBA Ipratropium [place] (Ipratropium 0.06% Nasal 15 Ml) 0 spray NASAL .COMPLEX CUBA Naloxone HCl (Naloxone 0.4 Mg/Ml Vial) 0.2 mg IV Q2MIN PRN PRN Reason: Opiate Reversal Non-Formulary Medication (Omeprazole) 20 mg PO DAILY CUBA Ondansetron HCl (Ondansetron 4 Mg/2 Ml Inj) 4 mg IV NOW PRN PRN Reason: Nausea And Vomiting Ondansetron HCl (Ondansetron 4 Mg/2 Ml Inj) 4 mg IV Q8HR PRN PRN Reason: Nausea And Vomiting Spironolactone (Spironolactone 25 Mg Tablet) 0 mg PO .COMPLEX CUBA Tramadol HCl (Tramadol 50 Mg Tablet) 50 mg PO BID PRN PRN Reason: pain Vital Signs Vital signs: Vital Signs - 8 hr 04/17/24 21:30 04/17/24 21:30 04/17/24 22:00 Pulse Rate 82 86 Blood Pressure 126/64 Pulse Oximetry 94 96 04/17/24 22:00 04/17/24 22:30 04/17/24 22:30 Pulse Rate 95 H Blood Pressure 125/61 129/64 Pulse Oximetry 95 04/17/24 23:00 04/17/24 23:01 04/17/24 23:01 Pulse Rate 81 90 Blood Pressure 146/70 H Pulse Oximetry 94 96 04/17/24 23:24 04/17/24 23:24 04/17/24 23:30 Pulse Rate 91 H 83 Blood Pressure 155/80 H Pulse Oximetry 98 97 04/17/24 23:30 04/18/24 01:58 04/18/24 01:58 Pulse Rate 84 Blood Pressure 133/65 125/62 Pulse Oximetry 96 04/18/24 02:00 04/18/24 02:00 04/18/24 02:28 Pulse Rate 85 Blood Pressure 123/60 120/82 Pulse Oximetry 97 04/18/24 02:28 04/18/24 02:30 04/18/24 02:31 Pulse Rate 95 H 93 H 89 Blood Pressure Pulse Oximetry 96 97 97 04/18/24 02:31 04/18/24 03:00 04/18/24 03:00 Pulse Rate 88 Blood Pressure 156/73 H 125/59 L Pulse Oximetry 95 04/18/24 03:30 04/18/24 03:30 04/18/24 03:54 Pulse Rate 78 83 Blood Pressure 133/73 Pulse Oximetry 96 96 04/18/24 04:00 04/18/24 04:30 Pulse Rate Blood Pressure 139/88 130/82 Pulse Oximetry MDM - Nausea/Vomiting/Diarrhea Lab Data 04/17/24 19:54 04/17/24 19:54 Labs: Lab Results 04/17/24 04/17/24 Range/Units 19:54 23:27 WBC 11.7 H (4.5-11.0) X10^3/uL RBC 4.44 (4.0-5.2) X10^6/uL Hgb 13.9 (12.0-16.0) g/dL Hct 40.8 (36-46) % MCV 91.8 (80-100) fL MCH 31.3 (26-34) PG MCHC 34.1 (30-36) % RDW 13.4 (11.6-14.8) % Plt Count 159 (150-400) X10^3/uL Neut % (Auto) 74.9 (50-75) % Lymph % (Auto) 12.9 L (25-40) % [place] % (Auto) 11.8 (3-14) % Eos % (Auto) 0.2 L (2-4) % Baso % (Auto) 0.2 (0-2) % Neut # (Auto) 8700 H (7023-0233) /uL Lymph # (Auto) 1500 (0650-9560) /uL [place] # (Auto) 1400 H (0-900) /uL Eos # (Auto) 0 (0-450) /uL Baso # (Auto) 0 (0-100) /uL Sodium 133 L (137-145) mmol/L Potassium 3.7 (3.4-5.1) mmol/L Chloride 101 (98-107) mmol/L Carbon Dioxide 24 (22-32) mmol/L BUN 17 (7-17) mg/dL Creatinine 0.59 (0.52-1.04) mg/dL Estimated GFR > 60 (>60) mL/min BUN/Creatinine Ratio 28.8 H (6-22) Glucose 127 H (80-110) mg/dL Calcium 8.9 (8.4-10.2) mg/dL Total Bilirubin 1.3 (0.2-1.3) mg/dL AST 31 (14-36) IU/L ALT 23 (<35) IU/L Alkaline Phosphatase 119 (38-126) U/L Total Protein 6.8 (6.3-8.2) g/dL Albumin 4.2 (3.5-5.0) g/dL Globulin 2.6 (1.7-4.1) g/dL Albumin/Globulin Ratio 1.6 (1.0-2.8) Lipase 34 (23-300) U/L Stl C. cayetanensis PCR Not detected (Not Detect) Stool Rotavirus (PCR) Not detected (Not Detect) Stool Adenovirus (PCR) Not detected (Not Detect) Stool Astrovirus (PCR) Not detected (Not Detect) Stool Cryptosporidium PCR Not detected (Not Detect) Stl E.coli Shiga Tox PCR Not detected (Not Detect) St Sh/Enteroin Ecoli PCR Not detected (Not Detect) Stl Enterotoxigenic E PCR Not detected (Not Detect) Stool EPEC (PCR) Not detected (Not Detect) Stl E. histolytica PCR Not detected (Not Detect) Stool Giardia Lamblia PCR Not detected (Not Detect) Stool Sapovirus (PCR) Not detected (Not Detect) Stl P. shigelloides PCR Not detected (Not Detect) St Y.enterocolitica PCR Not detected (Not Detect) Stool Vibrio (PCR) Not detected (Not Detect) Stl Vibrio cholerae PCR Not detected (Not Detect) Stl Enteroaggr Ecoli PCR Not detected (Not Detect) Stl Norovirus GI/GII PCR Not detected (Not Detect) Campylobacter (PCR) Not detected (Not Detect) C. difficile Tox (PCR) Not detected (Not Detect) Salmonella (PCR) Not detected (Not Detect) MDM Narrative Medical decision making narrative: Patient's labs overall are appropriate white count is 11.7 hemoglobin is 13.9, platelets are 159. Patient has ranged between 13 and 14 pretty consistently. Sodium is 133 potassium 3 7 chloride 101 with a CO2 of 24 BUN 17 creatinine 0.59 with glucose of 127 normal LFTs. Patient was recently started on Macrobid but her culture from the 12 of April showed mixed g positive andressa. Patient has not had any stool samples made here in the department during her stay thus far. Discussed she has had a little bit increased pain from her typical, discussed risks versus benefits and elected based on age and particular to pursue CT abdomen pelvis. poc urine is negative. Patient's white count 11.7 normal hemoglobin platelets. Sodium is 133 potassium 3 7 chloride 101 CO2 of 24 BUN 17 creatinine 0.59 glucose [address] shows This shows sigmoid colon is distended with debris and fluid without obstruction possible colonic ileus no free air or abscess. On prelim of bowel patient has significant air throughout up to her stomach. I spoke with General surgery they are happy to consult for colonoscopy for clean out as needed. Discussed that I was unable to disimpact reason reach any stool. Patient also appears to have bladder distention and had 700 mL on her bladder scan, Dia catheter was placed. Discussed with Dr. Ellsworth general surgery who is happy to consult on patient if patient ends up requiring colonoscopy. Spoke with hospitalist for observation regarding ileus, constipation with overflow diarrhea along with acute urinary retention. Discharge Plan Departure Patient Disposition: Admitted As Inpatient Clinical Impression: Ileus, Constipation, Acute urinary retention Admit Date/Time: 04/18/24 04:49 Admit Provider: Vinny Licona
--- NOTE | 2024-04-17 23:02 | DI.CT.S_ITS ---
PROCEDURE: CT ABDOMEN PELVIS W CON INDICATIONS: diarrhea, acute on chronic low abd pain, worse TECHNIQUE: After the administration of intravenous contrast, axial sections acquired from the lung bases to the pubic symphysis. Coronal and sagittal reformats were performed. For radiation dose reduction, the following was used: automated exposure control, adjustment of mA and/or kV according to patient size. COMPARISON: [facility], CR, XR LUMBAR SPINE 2-3V, 06/16/2023, 15:50. FINDINGS: Lower thorax: The lung bases are clear. Heart size normal. No hiatal hernia. Liver: Normal in size and attenuation. No contour deformity present. Biliary system: Distended gallbladder without evidence of acute cholecystitis Pancreas: Unremarkable without mass or inflammation evident. Spleen: Normal in size and density. Adrenals: Normal morphology and density. Reproductive system: Unremarkable as visualized. Urinary system: Normal renal size and attenuation. Left renal cyst measures 5.2 cm No renal calculi, hydronephrosis, or solid mass present. Urinary bladder unremarkable. Gastrointestinal system: Sigmoid colon is distended with air and fecal debris without evidence of obstruction. Appendix: No findings to suggest acute appendicitis. Peritoneal spaces: No mesenteric or retroperitoneal adenopathy. No free air. No free fluid. Vasculature: Aortic atherosclerotic vascular calcification noted without evidence of aneurysm. Abdominal wall: Abdominal wall intact without evidence of ventral or inguinal hernias. Musculoskeletal: Normal bone mineralization. Degenerative disc disease and arthropathy noted in lower lumbar spine. L3-4 severe central stenosis. Left total hip prosthesis Degenerative disc disease and arthropathy noted in lower lumbar spine. No acute fractures. T12 and L1 wedge-shaped compression fractures IMPRESSION: Osteopenic T12 and L1 compression fractures have increased in height loss the prior exam 06/16/2023 Sigmoid colon is distended with debris and fluid without obstruction. Possible colonic ileus. No evidence of free air or abscess Approved by: Deangelo Mccoy M.D. on 04/17/2024 at 23:19
[2024-04-18] VITALS (17 sets, daily range): BP systolic 112–166; BP diastolic 58–88; PULSE 61–95; RESP 14–16; TEMP 36.3–37.3; O2SAT 95–100; BMI 19.8
[2024-04-18 01:38] LABS: Adenovirus F 40/41 Not Detected (Not Detect); Astrovirus Not Detected (Not Detect); Campylobacter Not Detected (Not Detect); Clostridium difficile toxin AB Not Detected (Not Detect); Cryptosporidium Not Detected (Not Detect); Cyclospora cayetanensis Not Detected (Not Detect); Entamoeba histolytica Not Detected (Not Detect); Enteroaggregative E.coli Not Detected (Not Detect); Enteropathogenic E.coli Not Detected (Not Detect); Enterotoxigenic E.coli It/st Not Detected (Not Detect); Giardia lamblia Not Detected (Not Detect); Norovirus GI/GII Not Detected (Not Detect); Plesiomonsa shigelloides Not Detected (Not Detect); Rotavirus A Not Detected (Not Detect); Salmonella Not Detected (Not Detect); Sapovirus Not Detected (Not Detect); Shiga-like toxin-prod E.coli Not Detected (Not Detect); Shigella/Enteroinvasive E.coli Not Detected (Not Detect); Vibrio Not Detected (Not Detect); Vibrio cholerae Not Detected (Not Detect); Yersinia enterocolitica Not Detected (Not Detect)
--- NOTE | 2024-04-18 05:25 | PM.HP.1 ---
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 Prior to that, she had no BM for a whole week after colonoscopy.Diagnosed with oiverflow diarrhea and underlying constipation. She could not be manually disimpacted in the ED. Placed in observation for laxatives and potentially colonoscopy disimpaction by surgery if needed. [facility] Medical History Urinary retention Meningioma SBO (small bowel obstruction) Uncontrolled diabetes mellitus Venous telangiectasia of lower extremity House dust mite allergy Pollen allergy Edema of both lower legs Thumb laceration Thumb fracture Contusion of left thumb Green nails Obstructive sleep apnea hypopnea, moderate Acid reflux Diarrhea Esophagitis Syncope Shortness of breath on exertion Palpitations Dizziness Hyponatremia Hypomagnesemia Snoring Abnormal mammogram of right breast (~04/2020) Oral thrush Overweight (BMI 25.0-29.9) Angular cheilitis Onychomycosis Vulvitis Lichen sclerosus of female genitalia Vision disorder Mumps (~1949) Measles (~1949) Chicken pox (~1949) Hearing loss Frequent UTI Hypertension Hyperlipidemia Chronic vaginitis (04/01/16) Osteoarthritis of left hip (04/01/16) Edema of foot (11/01/15) Surgical History History of left hip replacement Anesthesia Status post hernia repair (~1964) Family History Brother Age: 85 Detached retina Father Cancer Loud snoring Mother Hypertension Social History marital status: household members: spouse lives independently: Yes occupational status: previously employed Smoking Status: Never smoker alcohol intake: never substance use type: does not use eating out: rarely or never Type(s) of exercise: bicycling Meds Home Medications and Allergies Home Medications Medication Instructions Recorded Confirmed Type CA PANTOTHENATE/FOLIC ACID/VIT 1 tab PO Q DAY ##0 09/13/11 04/12/24 History (MULTIVITAMIN) acidophilus 100 million 1 cap PO DAILY 05/26/19 04/12/24 History cell-pectin, citrus 10 mg capsule (Probiotic Acidophilus-Pectin) vitamin d 1 cap PO DAILY 05/26/19 04/12/24 History blood-glucose meter (Blood Glucose #1 ea 01/10/20 04/12/24 Rx Monitoring kit) cranberry 500 mg capsule 4,200 mg PO DAILY 06/05/20 04/12/24 History blood sugar diagnostic (Glucocard #100 ea 02/11/23 04/12/24 Rx Expression strips) lancets 28 gauge (TechLITE Lancets) #100 ea 06/02/23 04/12/24 Rx atorvastatin 40 mg tablet 40 mg PO BEDTIME #90 tabs 07/10/23 04/18/24 Rx Disabled Parking Permit #1 ea 09/26/23 04/12/24 Rx omeprazole 20 mg capsule,delayed 20 mg PO DAILY #90 caps 10/07/23 04/12/24 Rx release azelastine 137 mcg (0.1 %) nasal intranasal 02/19/24 04/12/24 History spray aerosol [id number] 1 cap PO TID #90 caps 02/19/24 04/12/24 Rx 12,000-38,000-60,000 unit capsule,delayed rel (Creon) nitrofurantoin 100 mg PO Q12H 7 days #14 caps 04/12/24 04/12/24 Rx monohydrate/macrocrystals 100 mg capsule (Macrobid) atenolol 50 mg tablet 50 mg PO BID 04/18/24 04/18/24 History clobetasol 0.05 % topical cream 1 applic BID 04/18/24 04/18/24 History estradiol 0.01% (0.1 mg/gram) 1 g vaginal 2XW 04/18/24 04/18/24 History vaginal cream ipratropium bromide 42 mcg (0.06 2 spray intranasal BID 04/18/24 04/18/24 History %) nasal spray spironolactone 25 mg tablet 25 mg PO DAILY 04/18/24 04/18/24 History tramadol 50 mg tablet 50 mg PO BID PRN pain 04/18/24 04/18/24 History Allergies Allergy/AdvReac Type Severity Reaction Status Date / Time Sulfa (Sulfonamide Allergy Intermediate HIVES Verified 04/17/24 19:38 Antibiotics) ARB-Angiotensin Receptor AdvReac Severe syncope, Verified 04/17/24 19:38 Antagonist diarrhea metformin AdvReac Intermediate Diarrhea Verified 04/17/24 19:38 lisinopril AdvReac Mild COUGH Verified 04/17/24 19:38 Review of Systems Constitutional Comments: w/o chills or fever Cardiovascular Comments: w/o chest pain or palpitations Respiratory Comments: w/o shortness of breath Gastrointestinal Comments: see HPI. Without melena or bloody stool. Without weight loss. Genitourinary Comments: w/o dysuria. Unable to void in ED, had Dia placed Exam Vital Signs (past 8 hours): - 04/17/24 21:30 04/17/24 21:30 04/17/24 22:00 Pulse Rate 82 86 Blood Pressure 126/64 Pulse Oximetry 94 96 04/17/24 22:00 04/17/24 22:30 04/17/24 22:30 Pulse Rate 95 H Blood Pressure 125/61 129/64 Pulse Oximetry 95 04/17/24 23:00 04/17/24 23:01 04/17/24 23:01 Pulse Rate 81 90 Blood Pressure 146/70 H Pulse Oximetry 94 96 04/17/24 23:24 04/17/24 23:24 04/17/24 23:30 Pulse Rate 91 H 83 Blood Pressure 155/80 H Pulse Oximetry 98 97 04/17/24 23:30 04/18/24 01:58 04/18/24 01:58 Pulse Rate 84 Blood Pressure 133/65 125/62 Pulse Oximetry 96 04/18/24 02:00 04/18/24 02:00 04/18/24 02:28 Pulse Rate 85 Blood Pressure 123/60 120/82 Pulse Oximetry 97 04/18/24 02:28 04/18/24 02:30 04/18/24 02:31 Pulse Rate 95 H 93 H 89 Blood Pressure Pulse Oximetry 96 97 97 04/18/24 02:31 04/18/24 03:00 04/18/24 03:00 Pulse Rate 88 Blood Pressure 156/73 H 125/59 L Pulse Oximetry 95 04/18/24 03:30 04/18/24 03:30 04/18/24 03:54 Pulse Rate 78 83 Blood Pressure 133/73 Pulse Oximetry 96 96 04/18/24 04:00 04/18/24 04:30 04/18/24 05:00 Pulse Rate Blood Pressure 139/88 130/82 143/72 H Pulse Oximetry Oxygen Delivery Method Room Air Const Other: laying in bed in no distress HENMT Other: normocephalic Neck Other: supple Cardio Other: RRR GI Other: mild distension Skin Other: w/o jaundice Objective Labs 04/17/24 19:54 04/17/24 19:54 Labs: Laboratory Results - last 24 hr 04/17/24 04/17/24 19:54 23:27 WBC 11.7 H RBC 4.44 Hgb 13.9 Hct 40.8 MCV 91.8 MCH 31.3 MCHC 34.1 RDW 13.4 Plt Count 159 Neut % (Auto) 74.9 Lymph % (Auto) 12.9 L [place] % (Auto) 11.8 Eos % (Auto) 0.2 L Baso % (Auto) 0.2 Neut # (Auto) 8700 H Lymph # (Auto) 1500 [place] # (Auto) 1400 H Eos # (Auto) 0 Baso # (Auto) 0 Sodium 133 L Potassium 3.7 Chloride 101 Carbon Dioxide 24 BUN 17 Creatinine 0.59 Estimated GFR > 60 BUN/Creatinine Ratio 28.8 H Glucose 127 H Calcium 8.9 Total Bilirubin 1.3 AST 31 ALT 23 Alkaline Phosphatase 119 Total Protein 6.8 Albumin 4.2 Globulin 2.6 Albumin/Globulin Ratio 1.6 Lipase 34 Stl C. cayetanensis PCR Not detected Stool Rotavirus (PCR) Not detected Stool Adenovirus (PCR) Not detected Stool Astrovirus (PCR) Not detected Stool Cryptosporidium PCR Not detected Stl E.coli Shiga Tox PCR Not detected St Sh/Enteroin Ecoli PCR Not detected Stl Enterotoxigenic E PCR Not detected Stool EPEC (PCR) Not detected Stl E. histolytica PCR Not detected Stool Giardia Lamblia PCR Not detected Stool Sapovirus (PCR) Not detected Stl P. shigelloides PCR Not detected St Y.enterocolitica PCR Not detected Stool Vibrio (PCR) Not detected Stl Vibrio cholerae PCR Not detected Stl Enteroaggr Ecoli PCR Not detected Stl Norovirus GI/GII PCR Not detected Campylobacter (PCR) Not detected C. difficile Tox (PCR) Not detected Salmonella (PCR) Not detected Assessment & Plan Assessment and plan (1) Overflow diarrhea: Status: Acute (2) Chronic diarrhea: Status: Acute (3) Acute urinary retention: Status: Acute Assessment & Plan narrative: - laxatives - Sx for disimpaction with scope if needed - needs follow up with GI - after the recent scope. Dr Diaz. Had biopsy taken - results not known - on Creon and cholestyramine but they are not helpful - apparently never tried Bentyl or Levsyn although IBS was considered by providers in the past Acute Urinary Retention - likely related to constipation - Dia placed GERD - PPI HTN - atenolol DVT prophylaxis - SCDs
[2024-04-18] MEDS: SODIUM CHLORIDE 0.9% 1,000 ML 150 ML IV ×2 (05:48→21:25)
[2024-04-18] MEDS: MAGNESIUM CITRATE 300 ML SOLUTION PO (06:37)
[2024-04-18 07:48] LABS: Add Manual Diff / Slide Review NO; Basophils Absolute Auto 0 /uL (0-100); Basophils Percent Auto 0.2 % (0-2); Eosinophils Absolute Auto 0 /uL (0-450); Eosinophils Percent Auto 0.2 % (2-4); Hematocrit 39.3 % (36-46); Hemoglobin 13.4 g/dL (12.0-16.0); Lymphocytes Absolute Auto 1200 /uL (1100-4500); Lymphocytes Percent Auto 13.4 % (25-40); Mean Corpuscular HGB Conc 34.1 % (30-36); Mean Corpuscular Hemoglobin 31.3 PG (26-34); Mean Corpuscular Volume 91.8 fL (80-100); Monocytes Absolute Auto 1200 /uL (0-900); Monocytes Percent Auto 12.4 % (3-14); Neutrophils Absolute Auto 6900 /uL (1500-7000); Neutrophils Percent Auto 73.8 % (50-75); Platelet Count 136 X10^3/uL (150-400); Red Blood Cell Count 4.28 X10^6/uL (4.0-5.2); Red Cell Distribution Width 13.6 % (11.6-14.8); White Blood Cell Count 9.3 X10^3/uL (4.5-11.0)
[2024-04-18 07:54] LABS: BUN Creatinine Ratio 26.9 (6-22); Blood Urea Nitrogen 14 mg/dL (7-17); Calcium 8.6 mg/dL (8.4-10.2); Carbon Dioxide 22 mmol/L (22-32); Chloride 105 mmol/L (98-107); Estimated Glomerular Filt Rate > 60 mL/min (>60); Glucose 106 mg/dL (80-110); HEMOLYSIS < 15 (0-50); Potassium 3.6 mmol/L (3.4-5.1); Sodium 135 mmol/L (137-145)
--- NOTE | 2024-04-18 07:59 | PM.HP.1 ---
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 Prior to that, she had no BM for a whole week after colonoscopy.Diagnosed with oiverflow diarrhea and underlying constipation. She could not be manually disimpacted in the ED. Placed in observation for laxatives and potentially colonoscopy disimpaction by surgery if needed. Today: She feels a little bit better. She did have a moderate bowel movement around noon today. She still has a lot of gas and distention. No belching. Minimal flatus. CT is reviewed and shows a lot of dilation of colon and a ball of stool in the sigmoid and rectal areas. She has [id number] abdominal discomfort and feels full. No nausea or vomiting. She denies any chest pain. She had colonoscopy a week ago. Her colonoscopy revealed a tortuous colon without masses or polyps. Random biopsies were taken. [facility] Medical History Urinary retention Meningioma SBO (small bowel obstruction) Uncontrolled diabetes mellitus Venous telangiectasia of lower extremity House dust mite allergy Pollen allergy Edema of both lower legs Thumb laceration Thumb fracture Contusion of left thumb Green nails Obstructive sleep apnea hypopnea, moderate Acid reflux Diarrhea Esophagitis Syncope Shortness of breath on exertion Palpitations Dizziness Hyponatremia Hypomagnesemia Snoring Abnormal mammogram of right breast (~04/2020) Oral thrush Overweight (BMI 25.0-29.9) Angular cheilitis Onychomycosis Vulvitis Lichen sclerosus of female genitalia Vision disorder Mumps (~1950) Measles (~1950) Chicken pox (~1950) Hearing loss Frequent UTI Hypertension Hyperlipidemia Chronic vaginitis (04/01/16) Osteoarthritis of left hip (04/01/16) Edema of foot (11/01/15) Surgical History History of left hip replacement Anesthesia Status post hernia repair (~1964) Family History Brother Age: 85 Detached retina Father Cancer Loud snoring Mother Hypertension Social History marital status: household members: spouse lives independently: Yes occupational status: previously employed Smoking Status: Never smoker alcohol intake: never substance use type: does not use eating out: rarely or never Type(s) of exercise: bicycling Meds Home Medications and Allergies Home Medications Medication Instructions Recorded Confirmed Type CA PANTOTHENATE/FOLIC ACID/VIT 1 tab PO Q DAY ##0 09/13/11 04/12/24 History (MULTIVITAMIN) acidophilus 100 million 1 cap PO DAILY 05/26/19 04/12/24 History cell-pectin, citrus 10 mg capsule (Probiotic Acidophilus-Pectin) vitamin d 1 cap PO DAILY 05/26/19 04/12/24 History blood-glucose meter (Blood Glucose #1 ea 01/10/20 04/18/24 Rx Monitoring kit) cranberry 500 mg capsule 4,200 mg PO DAILY 06/05/20 04/12/24 History blood sugar diagnostic (Glucocard #100 ea 02/11/23 04/12/24 Rx Expression strips) lancets 28 gauge (TechLITE Lancets) #100 ea 06/02/23 04/18/24 Rx atorvastatin 40 mg tablet 40 mg PO BEDTIME #90 tabs 07/10/23 04/18/24 Rx Disabled Parking Permit #1 ea 09/26/23 04/12/24 Rx atenolol 50 mg tablet 50 mg PO BID 04/18/24 04/18/24 History azelastine 137 mcg (0.1 %) nasal 2 spray intranasal BID PRN Nasal 04/18/24 04/18/24 History spray aerosol Congestion cholestyramine-aspartame 4 gram 1 ea AC 04/18/24 04/18/24 History oral powder (Cholestyramine Light) clobetasol 0.05 % topical cream 1 applic BID 04/18/24 04/18/24 History estradiol 0.01% (0.1 mg/gram) 1 g vaginal 2XW 04/18/24 04/18/24 History vaginal cream ipratropium bromide 42 mcg (0.06 2 spray intranasal BID 04/18/24 04/18/24 History %) nasal spray [id number] 1 cap PO TID 04/18/24 04/18/24 History 12,000-38,000-60,000 unit capsule,delayed rel (Creon) nitrofurantoin 1 cap PO Q12H 04/18/24 04/18/24 History monohydrate/macrocrystals 100 mg capsule spironolactone 25 mg tablet 25 mg PO DAILY 04/18/24 04/18/24 History tramadol 50 mg tablet 50 mg PO BID PRN pain 04/18/24 04/18/24 History Allergies Allergy/AdvReac Type Severity Reaction Status Date / Time Sulfa (Sulfonamide Allergy Intermediate HIVES Verified 04/17/24 19:38 Antibiotics) ARB-Angiotensin Receptor AdvReac Severe syncope, Verified 04/17/24 19:38 Antagonist diarrhea metformin AdvReac Intermediate Diarrhea Verified 04/17/24 19:38 lisinopril AdvReac Mild COUGH Verified 04/17/24 19:38 Review of Systems Review of Systems Narrative: All else reviewed and otherwise unremarkable except as noted in the history and physical. Exam Vital Signs (past 8 hours): - 04/18/24 01:58 04/18/24 01:58 04/18/24 02:00 Pulse Rate 84 85 Blood Pressure 125/62 Pulse Oximetry 96 97 04/18/24 02:00 04/18/24 02:28 04/18/24 02:28 Pulse Rate 95 H Blood Pressure 123/60 120/82 Pulse Oximetry 96 04/18/24 02:30 04/18/24 02:31 04/18/24 02:31 Pulse Rate 93 H 89 Blood Pressure 156/73 H Pulse Oximetry 97 97 04/18/24 03:00 04/18/24 03:00 04/18/24 03:30 Pulse Rate 88 78 Blood Pressure 125/59 L Pulse Oximetry 95 96 04/18/24 03:30 04/18/24 03:54 04/18/24 04:00 Pulse Rate 83 Blood Pressure 133/73 139/88 Pulse Oximetry 96 04/18/24 04:30 04/18/24 05:00 Pulse Rate Blood Pressure 130/82 143/72 H Pulse Oximetry Oxygen Delivery Method Room Air Narrative Exam Narrative: NAD, alert and oriented, fluent speech, calm. Normocephalic skull, EOMI, anicteric sclera, symmetric pupils. Oropharynx unremarkable, no droop. Neck supple, midline trachea, no adenopathy. Lungs clear, normal rate and effort. Heart regular, no murmur gallop or rub. Abdomen is soft, distended and hypertympanic. Minimally tender. No guarding or rebound. Extremities are free of edema. Skin is free of rash or lesions. Joints are not swollen or deformed. Judgment appears to be normal. Objective Imaging CT scan - abdomen: Radiologist's impression: Osteopenic T12 and L1 compression fractures have increased in height loss the prior exam 06/16/2023 Sigmoid colon is distended with debris and fluid without obstruction. Possible colonic ileus. No evidence of free air or abscess Labs 04/18/24 07:40 04/18/24 07:40 Labs: Laboratory Results - last 24 hr 04/17/24 04/17/24 04/18/24 19:54 23:27 07:40 WBC 11.7 H 9.3 RBC 4.44 4.28 Hgb 13.9 13.4 Hct 40.8 39.3 MCV 91.8 91.8 MCH 31.3 31.3 MCHC 34.1 34.1 RDW 13.4 13.6 Plt Count 159 136 L Neut % (Auto) 74.9 73.8 Lymph % (Auto) 12.9 L 13.4 L [place] % (Auto) 11.8 12.4 Eos % (Auto) 0.2 L 0.2 L Baso % (Auto) 0.2 0.2 Neut # (Auto) 8700 H 6900 Lymph # (Auto) 1500 1200 [place] # (Auto) 1400 H 1200 H Eos # (Auto) 0 0 Baso # (Auto) 0 0 Sodium 133 L 135 L Potassium 3.7 3.6 Chloride 101 105 Carbon Dioxide 24 22 BUN 17 14 Creatinine 0.59 0.52 Estimated GFR > 60 > 60 BUN/Creatinine Ratio 28.8 H 26.9 H Glucose 127 H 106 Calcium 8.9 8.6 Total Bilirubin 1.3 AST 31 ALT 23 Alkaline Phosphatase 119 Total Protein 6.8 Albumin 4.2 Globulin 2.6 Albumin/Globulin Ratio 1.6 Lipase 34 Stl C. cayetanensis PCR Not detected Stool Rotavirus (PCR) Not detected Stool Adenovirus (PCR) Not detected Stool Astrovirus (PCR) Not detected Stool Cryptosporidium PCR Not detected Stl E.coli Shiga Tox PCR Not detected St Sh/Enteroin Ecoli PCR Not detected Stl Enterotoxigenic E PCR Not detected Stool EPEC (PCR) Not detected Stl E. histolytica PCR Not detected Stool Giardia Lamblia PCR Not detected Stool Sapovirus (PCR) Not detected Stl P. shigelloides PCR Not detected St Y.enterocolitica PCR Not detected Stool Vibrio (PCR) Not detected Stl Vibrio cholerae PCR Not detected Stl Enteroaggr Ecoli PCR Not detected Stl Norovirus GI/GII PCR Not detected Campylobacter (PCR) Not detected C. difficile Tox (PCR) Not detected Salmonella (PCR) Not detected Assessment & Plan Assessment & Plan narrative: 1. Severe constipation, present on admission and active. 2. Overflow diarrhea secondary to 1. Present on admission and active. 3. Hypertension, present on admission and stable. 4. Acute urinary retention secondary to 1., present on admission and active. Plan: -bowel program and disimpaction. We will consider surgical consult if no improvement. -we will try Dulcolax suppository now and see if this encourage is passage of stool. -continue blood pressure medications. -DC Dia and voiding trial after constipation resolved. She has an expectation 1 midnight, is admitted to observation status. Time Spent With Patient Time with patient: 30 to 49 minutes with 50% spent counseling/coordinating care Quality MIPS - Admit I confirm the patient?s Advance Care Plan is present, Code status is documented, Surrogate decision maker is in patient?s record [If Yes, STOP here]: Yes MIPS - Meds 'Current medications' to include all prescriptions, [id number] products, herbals, cannabis/cannabidiol products, and vitamin/mineral/dietary (nutritional) supplements. I have utilized all available resources to obtain, update, or review the patient?s current medications. [If Yes, STOP here]: Yes
[2024-04-18] MEDS: atenoloL 50 MG TABLET 25 MG PO ×2 (08:19→21:31)
[2024-04-18] MEDS: DOCUSATE 100 MG CAPSULE PO ×2 (08:19→21:32)
[2024-04-18] MEDS: PANTOPRAZOLE DR 20 MG TABLET PO (08:19)
[2024-04-18] MEDS: SPIRONOLACTONE 25 MG TABLET PO (08:20)
--- NOTE | 2024-04-18 10:59 | P.CONS_ITS ---
History of Present Illness Consult details Date Patient Seen: 04/18/24 Time Patient Seen: 10:59 Chief complaint: diarrhea 3 days Reason for consult: Constipation Requesting provider: Torey Mazariegos Narrative: Patient had a colonoscopy on the with Dr. Roche. Not have a bowel movement until the of this month. And ever since then it has been liquid stool. CT scan shows no obstruction. A largely, chronically dilated colon. And remnants of the stool ball in the rectal area. She had the laxatives to drink this morning and feels some urges during our exam. Meds Home Medications and Allergies Home Medications Medication Instructions Recorded Confirmed Type CA PANTOTHENATE/FOLIC ACID/VIT 1 tab PO Q DAY ##0 09/13/11 04/12/24 History (MULTIVITAMIN) acidophilus 100 million 1 cap PO DAILY 05/26/19 04/12/24 History cell-pectin, citrus 10 mg capsule (Probiotic Acidophilus-Pectin) vitamin d 1 cap PO DAILY 05/26/19 04/12/24 History blood-glucose meter (Blood Glucose #1 ea 01/10/20 04/18/24 Rx Monitoring kit) cranberry 500 mg capsule 4,200 mg PO DAILY 06/05/20 04/12/24 History blood sugar diagnostic (Glucocard #100 ea 02/11/23 04/12/24 Rx Expression strips) lancets 28 gauge (TechLITE Lancets) #100 ea 06/02/23 04/18/24 Rx atorvastatin 40 mg tablet 40 mg PO BEDTIME #90 tabs 07/10/23 04/18/24 Rx Disabled Parking Permit #1 ea 09/26/23 04/12/24 Rx atenolol 50 mg tablet 50 mg PO BID 04/18/24 04/18/24 History azelastine 137 mcg (0.1 %) nasal 2 spray intranasal BID PRN Nasal 04/18/24 04/18/24 History spray aerosol Congestion cholestyramine-aspartame 4 gram 1 ea AC 04/18/24 04/18/24 History oral powder (Cholestyramine Light) clobetasol 0.05 % topical cream 1 applic BID 04/18/24 04/18/24 History estradiol 0.01% (0.1 mg/gram) 1 g vaginal 2XW 04/18/24 04/18/24 History vaginal cream ipratropium bromide 42 mcg (0.06 2 spray intranasal BID 04/18/24 04/18/24 History %) nasal spray kmbjpq-[id number]-[id number] 1 cap PO TID 04/18/24 04/18/24 History 12,000-38,000-60,000 unit capsule,delayed rel (Creon) nitrofurantoin 1 cap PO Q12H 04/18/24 04/18/24 History monohydrate/macrocrystals 100 mg capsule spironolactone 25 mg tablet 25 mg PO DAILY 04/18/24 04/18/24 History tramadol 50 mg tablet 50 mg PO BID PRN pain 04/18/24 04/18/24 History Allergies Allergy/AdvReac Type Severity Reaction Status Date / Time Sulfa (Sulfonamide Allergy Intermediate HIVES Verified 04/17/24 19:38 Antibiotics) ARB-Angiotensin Receptor AdvReac Severe syncope, Verified 04/17/24 19:38 Antagonist diarrhea metformin AdvReac Intermediate Diarrhea Verified 04/17/24 19:38 lisinopril AdvReac Mild COUGH Verified 04/17/24 19:38 Review of Systems Review of Systems ROS: Yes All systems reviewed with the patient and are negative except as otherwise documented Exam Vital Signs (past 8 hours): - 04/18/24 03:00 04/18/24 03:00 04/18/24 03:30 Temperature Pulse Rate 88 78 Respiratory Rate Blood Pressure 125/59 L Pulse Oximetry 95 96 Oxygen Flow Rate 04/18/24 03:30 04/18/24 03:54 04/18/24 04:00 Temperature Pulse Rate 83 Respiratory Rate Blood Pressure 133/73 139/88 Pulse Oximetry 96 Oxygen Flow Rate 04/18/24 04:30 04/18/24 05:00 04/18/24 08:00 Temperature 98.1 F Pulse Rate 81 Respiratory Rate 14 Blood Pressure 130/82 143/72 H 140/62 Pulse Oximetry 97 Oxygen Flow Rate 0 Oxygen Delivery Method Room Air Oxygen Flow Rate 0 Const General: cooperative and comfortable Nutritional Appearance: average body habitus [facility] Head: normocephalic and atraumatic Ears: hearing grossly normal bilaterally Eyes Sclera: sclerae normal Neck Neck: trachea midline and No JVD Resp Effort & Inspection: normal respiratory effort and able to speak in complete sentences Cardio Rate: regular rate Rhythm: regular rhythm GI Inspection: distended Palpation: soft, No firm and No guarding Skin General: no rashes or lesions noted and atrophy Neuro General: patient alert, patient awake and patient oriented x3 Cognition: normal cognition Psych Mental Status: mental status grossly normal Judgment: judgment good Objective Labs 04/18/24 07:40 04/18/24 07:40 Labs: Laboratory Results - last 24 hr 04/17/24 04/17/24 04/18/24 19:54 23:27 07:40 WBC 11.7 H 9.3 RBC 4.44 4.28 Hgb 13.9 13.4 Hct 40.8 39.3 MCV 91.8 91.8 MCH 31.3 31.3 MCHC 34.1 34.1 RDW 13.4 13.6 Plt Count 159 136 L Neut % (Auto) 74.9 73.8 Lymph % (Auto) 12.9 L 13.4 L [place] % (Auto) 11.8 12.4 Eos % (Auto) 0.2 L 0.2 L Baso % (Auto) 0.2 0.2 Neut # (Auto) 8700 H 6900 Lymph # (Auto) 1500 1200 [place] # (Auto) 1400 H 1200 H Eos # (Auto) 0 0 Baso # (Auto) 0 0 Sodium 133 L 135 L Potassium 3.7 3.6 Chloride 101 105 Carbon Dioxide 24 22 BUN 17 14 Creatinine 0.59 0.52 Estimated GFR > 60 > 60 BUN/Creatinine Ratio 28.8 H 26.9 H Glucose 127 H 106 Calcium 8.9 8.6 Total Bilirubin 1.3 AST 31 ALT 23 Alkaline Phosphatase 119 Total Protein 6.8 Albumin 4.2 Globulin 2.6 Albumin/Globulin Ratio 1.6 Lipase 34 Stl C. cayetanensis PCR Not detected Stool Rotavirus (PCR) Not detected Stool Adenovirus (PCR) Not detected Stool Astrovirus (PCR) Not detected Stool Cryptosporidium PCR Not detected Stl E.coli Shiga Tox PCR Not detected St Sh/Enteroin Ecoli PCR Not detected Stl Enterotoxigenic E PCR Not detected Stool EPEC (PCR) Not detected Stl E. histolytica PCR Not detected Stool Giardia Lamblia PCR Not detected Stool Sapovirus (PCR) Not detected Stl P. shigelloides PCR Not detected St Y.enterocolitica PCR Not detected Stool Vibrio (PCR) Not detected Stl Vibrio cholerae PCR Not detected Stl Enteroaggr Ecoli PCR Not detected Stl Norovirus GI/GII PCR Not detected Campylobacter (PCR) Not detected C. difficile Tox (PCR) Not detected Salmonella (PCR) Not detected PFSH Medical History Urinary retention Meningioma SBO (small bowel obstruction) Uncontrolled diabetes mellitus Venous telangiectasia of lower extremity House dust mite allergy Pollen allergy Edema of both lower legs Thumb laceration Thumb fracture Contusion of left thumb Green nails Obstructive sleep apnea hypopnea, moderate Acid reflux Diarrhea Esophagitis Syncope Shortness of breath on exertion Palpitations Dizziness Hyponatremia Hypomagnesemia Snoring Abnormal mammogram of right breast (~04/2020) Oral thrush Overweight (BMI 25.0-29.9) Angular cheilitis Onychomycosis Vulvitis Lichen sclerosus of female genitalia Vision disorder Mumps (~1949) Measles (~1949) Chicken pox (~1949) Hearing loss Frequent UTI Hypertension Hyperlipidemia Chronic vaginitis (04/01/16) Osteoarthritis of left hip (04/01/16) Edema of foot (11/01/15) Surgical History History of left hip replacement Anesthesia Status post hernia repair (~1964) Family History Brother Age: 85 Detached retina Father Cancer Loud snoring Mother Hypertension Social History marital status: household members: spouse lives independently: Yes occupational status: previously employed Tobacco & Substance Use Smoking Status: Never smoker alcohol intake: never substance use type: does not use Diet and Exercise eating out: rarely or never Type(s) of exercise: bicycling Assessment & Plan Assessment & Plan narrative: Constipation with overflow liquid stools. Evidence of chronic dilation of the colon and history of constipation. Agree with laxatives/bowel prep and recommend probiotics.
[2024-04-18] MEDS: BISACODYL 10 MG SUPP PR (15:06)
--- NOTE | 2024-04-18 17:05 | CM.DPNOTE ---
DCP Note SECONDARY SET UP MAN reviewed EMR. . Pt is a 83yo F here following diarrhea, pt had colonoscopy 2 weeks ago and has either been constipated/having loose stool since. SECONDARY SET UP MAN unable to complete DCP assessment today due to triaging needs. CM team will follow closely for DCP concerns. SUSAN Sales
[2024-04-18] MEDS: ACETAMINOPHEN 325 MG TABLET 650 MG PO (21:32)
[2024-04-19 03:00] VITALS: BP 126/65; PULSE 68; RESP 18; TEMP 36.6; O2SAT 98
--- NOTE | 2024-04-19 03:50 | PC.NURSE ---
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 Reports 5/10 abdominal pain, medicated with tylenol with good effect. Denies N/V. Tolerating CLD. Ambulates to bathroom with stand-by assistance, had large loose BM overnight per patient (patient flushed before RN could visualize). Dia in place draining yellow urine. IVF infusing as ordered. Oriented to call-light. Plan of care ongoing.
[2024-04-19] MEDS: SODIUM CHLORIDE 0.9% 1,000 ML 150 ML IV (03:55)
[2024-04-19] MEDS: SPIRONOLACTONE 25 MG TABLET PO (08:37)
[2024-04-19] MEDS: DOCUSATE 100 MG CAPSULE PO (08:37)
[2024-04-19] MEDS: PANTOPRAZOLE DR 20 MG TABLET PO (08:37)
[2024-04-19] MEDS: atenoloL 50 MG TABLET 25 MG PO (08:38)
[2024-04-19] MEDS: TRAMADOL 50 MG TABLET PO (08:42)
[2024-04-19 08:58] VITALS: BP 147/66; PULSE 67; RESP 15; TEMP 36.3; O2SAT 98
[2024-04-19] MEDS: FLEETS ENEMA 1 EACH PR (09:35)
--- NOTE | 2024-04-19 10:59 | PM.DS.1 ---
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 Prior to that, she had no BM for a whole week after colonoscopy.Diagnosed with oiverflow diarrhea and underlying constipation. She could not be manually disimpacted in the ED. Placed in observation for laxatives and potentially colonoscopy disimpaction by surgery if needed. Today: She feels a little bit better. She did have a moderate bowel movement around noon today. She still has a lot of gas and distention. No belching. Minimal flatus. CT is reviewed and shows a lot of dilation of colon and a ball of stool in the sigmoid and rectal areas. She has [id number] abdominal discomfort and feels full. No nausea or vomiting. She denies any chest pain. She had colonoscopy a week ago. Her colonoscopy revealed a tortuous colon without masses or polyps. Random biopsies were taken. Discharge Providers Provider Date of admission: 04/18/24 04:49 Discharge Date: 04/19/24 Primary care physician: Anthony Flores MD Consults: 04/18/24 06:38 Consult to General Surgery Routine Comment: Consulting Provider: Marly Ellsworth Reason for consultation: ileus, obstipation, Has provider been notified: Yes Discharge provider: Torey Mazariegos MD Summary Hospital Course Discharge Diagnosis: 1. Severe constipation, present on admission and resolved. 2. Overflow diarrhea secondary to 1. Present on admission and resolved. 3. Hypertension, present on admission and stable. 4. Acute urinary retention secondary to 1., present on admission and improved. Hospital Course: She was admitted with constipation as outlined above. She underwent a bowel program and had good results. In the day of discharge she was much improved and will go home and use MiraLax 17 g p.o. b.i.d. for the next several days to encourage ongoing bowel movements. Status at Discharge Cognitive/behavioral status at discharge: oriented Functional status at discharge: independent ambulation Overall status at discharge: patient is back to baseline Time Spent with Patient Time spent: Greater than 30 minutes Exam Vital Signs (past 8 hours): - 04/19/24 03:00 04/19/24 08:00 04/19/24 08:58 Temperature 98 F 97.3 F L Pulse Rate 68 67 Respiratory Rate 18 15 Blood Pressure 126/65 147/66 H Pulse Oximetry 98 98 Oxygen Delivery Method Room Air Oxygen Flow Rate 0 0 Oxygen Delivery Method Room Air Oxygen Flow Rate 0 Narrative Exam Narrative: NAD, alert and oriented. Fluent speech. Lungs are clear, normal rate and effort. Heart is regular, no murmur gallop or rub. Abdomen is soft, mildly distended and non-tender. Extremities are free of edema. Objective Imaging CT scan - abdomen: Radiologist's impression: Osteopenic T12 and L1 compression fractures have increased in height loss the prior exam 06/16/2023 Sigmoid colon is distended with debris and fluid without obstruction. Possible colonic ileus. No evidence of free air or abscess Labs 04/18/24 07:40 04/18/24 07:40 [facility] Medical History Urinary retention Meningioma SBO (small bowel obstruction) Uncontrolled diabetes mellitus Venous telangiectasia of lower extremity House dust mite allergy Pollen allergy Edema of both lower legs Thumb laceration Thumb fracture Contusion of left thumb Green nails Obstructive sleep apnea hypopnea, moderate Acid reflux Diarrhea Esophagitis Syncope Shortness of breath on exertion Palpitations Dizziness Hyponatremia Hypomagnesemia Snoring Abnormal mammogram of right breast (~04/2020) Oral thrush Overweight (BMI 25.0-29.9) Angular cheilitis Onychomycosis Vulvitis Lichen sclerosus of female genitalia Vision disorder Mumps (~1950) Measles (~1950) Chicken pox (~1950) Hearing loss Frequent UTI Hypertension Hyperlipidemia Chronic vaginitis (04/01/16) Osteoarthritis of left hip (04/01/16) Edema of foot (11/01/15) Surgical History History of left hip replacement Anesthesia Status post hernia repair (~1964) Family History Brother Age: 85 Detached retina Father Cancer Loud snoring Mother Hypertension Social History marital status: household members: spouse lives independently: Yes occupational status: previously employed Smoking Status: Never smoker alcohol intake: never substance use type: does not use eating out: rarely or never Type(s) of exercise: bicycling Discharge Assessment & Plan Assessment and Plan Assessment: 1. Severe constipation, present on admission and resolved. 2. Overflow diarrhea secondary to 1. Present on admission and resolved. 3. Hypertension, present on admission and stable. 4. Acute urinary retention secondary to 1., present on admission and improved. Plan of Treatment: Discharge home with bowel program, MiraLax 17 g twice a day for the next several days. Discharge Plan Discharge Plan Patient Disposition: Home Provider Discharge Comment: Stable for discharge home we will continue her bowel program with MiraLax b.i.d. for the next several days. Discharge orders & Medications Prescriptions: Continued CA PANTOTHENATE/FOLIC ACID/VIT (MULTIVITAMIN) 1 tab PO Q DAY Qty: 0 ([facility]) blood-glucose meter [Blood Glucose Monitoring] Kit See Rx Instructions .ROUTE .MEDSUPPLY Qty: 1 0RF Rx Instructions: Test blood sugar once a day, Brand per insurance ([facility]) Glucocard Expression Strip See Rx Instructions .ROUTE .COMPLEX Qty: 100 2RF Dose Instruction: USE DIRECTED TO TEST BLOOD SUGAR ONE A DAY Rx Instructions: USE DIRECTED TO TEST BLOOD SUGAR ONE A DAY ([facility]) lancets [TechLITE Lancets] 28 gauge misc See Rx Instructions .ROUTE .COMPLEX Qty: 100 2RF Dose Instruction: DIRECTED TO TEST BLOOD SUGAR DAILY Rx Instructions: DIRECTED TO TEST BLOOD SUGAR DAILY atorvastatin 40 mg tablet 40 mg PO BEDTIME Qty: 90 3RF vitamin d 25 mcg capsule 1 cap PO DAILY acidophilus-pectin, citrus [Probiotic Acidophilus-Pectin] 100 million cell-10 mg capsule 1 cap PO DAILY (DME) Disabled Parking Permit See Rx Instructions .ROUTE .MEDSUPPLY Qty: 1 0RF Rx Instructions: I find this patient to be medically disabled and qualified for Disabled Parking as indicated and signed on the accompanying Disabled Parking Application for Individuals. clobetasol 0.05 % cream 1 applic BID Rx Instructions: APPLY TO AFFECTED AREA TWICE A DAY estradiol 0.01 % (0.1 mg/gram) cream 1 g vaginal 2XW atenolol 50 mg tablet 50 mg PO BID spironolactone 25 mg tablet 25 mg PO DAILY ipratropium bromide 42 mcg (0.06 %) spray,non-aerosol 2 spray intranasal BID tramadol 50 mg tablet 50 mg PO BID PRN (Reason: pain) azelastine 137 mcg (0.1 %) aerosol,spray 2 spray intranasal BID PRN (Reason: Nasal Congestion) Creon 12,000-38,000 -60,000 unit capsule,delayed release(DR/EC) 1 cap PO TID Cholestyramine Light 4 gram powder 1 ea AC Rx Instructions: with breakfast nitrofurantoin monohyd/m-cryst 100 mg capsule 1 cap PO Q12H Rx Instructions: x 7 days cranberry 500 mg Capsule 4,200 mg PO DAILY Follow up/Referrals: Anthony Flores MD [Primary Care Provider] - Discharge Health Status Multidrug resistant organism: No MDRO Diet/Activity/Treatments Diet: Diet as Tolerated Visit Report/Discharge Packet Instructions: Constipation Stand Alone Forms: Patient Portal/API Discharge Data Primary Care Provider: Anthony Flores Attending Provider: Vinny Licona Admit Date/Time: 04/18/24 04:49
--- NOTE | 2024-04-19 11:28 | CM.DPC ---
DCP Discharge Home Per MD, pt medically stable to discharge home today and no identified barriers to discharge and outpt f/u after d/c. Per Surgeon, pt had large bm and some biopsies taken to confirm no issues and will update pt after discharge once results return. Per RN, no concerns noted at this time and pt SBA and had arreola discontinued. Plan: Patient to discharge home today via POV and outpt f/u and no further SW needs at this time. Nuria Vargas MSW
--- NOTE | 2024-04-19 14:16 | PC.NURSE ---
Dia was removed, waiting for patient to void prior to discharge. Patient sitting comfortably in bed knitting. Drinking water and hot chocolate, denies pain. Continue to monitor. Anticipate discharge to home after void.
--- NOTE | 2024-04-19 17:13 | PC.NURSE ---
Addendum entered by Sander Valdovinos R.N. 04/19/24 19:39: Arreola was placed with clear yellow urine draining. Home arreola care and leg bag teaching reviewed with patient, she states understanding. Discharge instructions reviewed with patient, she has no further questions at this time. Patient is to call her PCP office and urology office tomorrow to schedule a follow up for this week. COMPUTER NETWORK AND SYSTEMS ENGINEER left messages with office for follow up/closed after hours/holiday. Patient escorted out via wheelchair by EQUIPMENT OPERATING ENGINEER to home with her . Addendum entered by Sander Valdovinos R.N. 04/19/24 18:22: Patient has been unable to void, bladder scan shows greater than 400 upto 900cc. Arreola placed per order, plan for patient to discharge to home with catheter and follow up with urology or PCP in office within next few days per Dr. Mazariegos. Patient feels able to care for catheter and would still like to go home with her benito. Original Note: Patient has been unable to void yet post arreola removal. She does not feel an urge to go at this time, but has now tried a couple times in bathroom. Took walk in halls with EQUIPMENT OPERATING ENGINEER and tolerated well. Patient states she had a previous period of time that she required a arreola catheter at home for several months for urinary retention, but they were not able to tell her a reason why she had the retention at that time. Discussed updated with Dr. Mazariegos, patient eating dinner, plan to place arreola catheter if unable to void and able to discharge to home with it.
== END 2024-04-19 19:00 | disposition home or self-care (01) ==
LOC: ED 04-18 04:32 → AC 04-18 04:45 → ED 04-18 04:48 → AC 04-18 04:49
PROVIDERS: Admitting Provider Internal Medicine; Emergency Provider Emergency Medicine; Family Provider Family Medicine; PCP Family Medicine; Referring Provider Emergency Medicine; Visit Provider Internal Medicine
DX: K59.00 Constipation, unspecified (principal); R19.7 Diarrhea, unspecified; R33.8 Other retention of urine; I10 Essential (primary) hypertension
CPT/HCPCS: 36415; 74177; 80048; 80053; 81003; 83690; 85025; 87507; 99284; 99285; G0378; Q9967

== ENCOUNTER → 2024-04-23 11:03 | Outpatient (CLI) | payer MEDICARE, BC, SELFPAY ==
[2024-04-20 13:13] VITALS: BMI 19.8
[2024-04-23 11:35] LABS: Add Manual Diff / Slide Review NO; Basophils Absolute Auto 0 /uL (0-100); Basophils Percent Auto 0.3 % (0-2); Eosinophils Absolute Auto 100 /uL (0-450); Eosinophils Percent Auto 1.1 % (2-4); Hematocrit 39.9 % (36-46); Hemoglobin 13.8 g/dL (12.0-16.0); Lymphocytes Absolute Auto 1700 /uL (1100-4500); Lymphocytes Percent Auto 27.1 % (25-40); Mean Corpuscular HGB Conc 34.5 % (30-36); Mean Corpuscular Hemoglobin 31.3 PG (26-34); Mean Corpuscular Volume 90.8 fL (80-100); Monocytes Absolute Auto 600 /uL (0-900); Monocytes Percent Auto 9.9 % (3-14); Neutrophils Absolute Auto 3800 /uL (1500-7000); Neutrophils Percent Auto 61.6 % (50-75); Platelet Count 182 X10^3/uL (150-400); White Blood Cell Count 6.2 X10^3/uL (4.5-11.0)
[2024-04-23 11:43] LABS: Hemoglobin A1C% w Est Avg Glu 5.4 % (4.0-6.0)
[2024-04-23 13:41] LABS: Alanine Aminotransferase 22 IU/L (<35); Albumin 3.7 g/dL (3.5-5.0); Albumin Globulin Ratio 1.8 (1.0-2.8); Alkaline Phosphatase 119 U/L (38-126); Aspartate Aminotransferase 32 IU/L (14-36); BUN Creatinine Ratio 21.4 (6-22); Bilirubin Total 0.6 mg/dL (0.2-1.3); Blood Urea Nitrogen 12 mg/dL (7-17); Calcium 8.8 mg/dL (8.4-10.2); Carbon Dioxide 30 mmol/L (22-32); Chloride 102 mmol/L (98-107); Cholesterol 108 mg/dL (140-199); Estimated Glomerular Filt Rate > 60 mL/min (>60); Globulin 2.1 g/dL (1.7-4.1); Glucose 107 mg/dL (80-110); HDL Cholesterol 43 mg/dL (40-60); HEMOLYSIS < 15 (0-50); LDL Cholesterol Calculated 50 mg/dL (<100); Potassium 4.2 mmol/L (3.4-5.1); Sodium 137 mmol/L (137-145); Total Protein 5.8 g/dL (6.3-8.2); Triglycerides 74 mg/dL (35-150)
[2024-04-23 14:11] LABS: TSH w/ Reflex to FT4 0.84 uIU/mL (0.47-4.68)
[2024-04-23 15:23] LABS: Creatinine Urine Random 58.39 mg/dL
[2024-04-23 15:27] LABS: Microalbumin Urine Random 2.5 mg/dL (0-1.6)
[2024-04-24 07:46] LABS: Apolipoprotein B 58 mg/dL (<90)
[2024-04-26 04:57] LABS: Hep C Virus Ab w/Reflex Quant NEGATIVE s/c (NEGATIVE)
== END ==
PROVIDERS: Family Provider Family Medicine; PCP Family Medicine; Referring Provider Family Medicine; Visit Provider Family Medicine
DX: K86.89 Other specified diseases of pancreas (principal); E11.9 Type 2 diabetes mellitus without complications; I10 Essential (primary) hypertension; K52.9 Noninfective gastroenteritis and colitis, unspecified; E78.5 Hyperlipidemia, unspecified
CPT/HCPCS: 36415; 80053; 80061; 82043; 82172; 82570; 83036; 84443; 85025; 86803

== ENCOUNTER → 2024-05-03 14:43 | Outpatient (CLI) | payer MEDICARE, BC, SELFPAY ==
[2024-04-20 13:13] VITALS: BMI 19.8
== END ==
PROVIDERS: Family Provider Family Medicine; PCP Family Medicine; Visit Provider Urology
DX: N39.0 Urinary tract infection, site not specified (principal)
CPT/HCPCS: 87077; 87086; 87186

== ENCOUNTER → 2024-05-12 16:26 | Outpatient (CLI) | payer MEDICARE, BC, SELFPAY ==
[2024-04-20 13:13] VITALS: BMI 19.8
--- NOTE | 2024-05-21 11:59 | DIET.OUTPTC ---
Addendum entered by Nneka Storm 05/21/24 12:54: *consultation done on 05/12/2024 Original Note: Dietary Outpatient Consultation Note Consultation Date: 05/21/2024 Assessment: 83 y F referred to dietitian for E11.9 - Type 2 diabetes mellitus without complications, E78.5 - Hyperlipidemia, unspecified, I10 - Essential (primary) hypertension, K59.00 - Constipation, unspecified, K86.89 - Other specified diseases of pancreas. Betsy reports ongoing diarrhea 3x/day at random times. Reports ongoing issue of D/C for 4 years. Hasn't experienced constipation in weeks. Is on pancreatic enzymes daily. Stopped taking lubiprostone yesterday d/t cramps, no BM since. Hx of constipation w/ overflow diarrhea and colonoscopy showing tortuous colon. Reports raw fruits and vegetables increase incidences of diarrhea/amount of stool. Has tried BRAT diet in past. A1c 5.4% March 2024. Diet recall: B-1 c fiber one cereal (27 g fiber-majority insoluble), 1 thin slice of kenia's killer wheat/seed bread (2 g fiber), 1/2 bottle frappe L-turkey or meatloaf sandwich (uses 1 sl same bread above-2 g fiber), applesauce, veggie chips, yogurt Ensure Original (1 g fiber) D-meat/poultry/fish and 1 c cooked veg (4-6 g fiber) 1 c juice 3 bottles of 10-12 oz water/day Total fiber: 37-40 g per day Recc amount for age: 21 g Dietary recall high in insoluble fiber sources Ht: 5 ft 8 in Wt: 135 lb BMI: 20.5 UBW: - Nutrition Diagnosis: Excessive fiber intake r/t limited nutrition educ on topic aeb diet recal with 37-40 g fiber/day, 29-30 g insoluble Interventions: 1. Decrease insoluble fiber intake, adequate soluble fiber -Provided educ on fiber r/t bowel movements, fiber needs, fluid needs -Provided handout on soluble fiber and sources 2. Discussed continued balanced meals for good BG control and reinforced nutrition educ for diabetes management Goals: Oatmeal over fiber one cereal (1 c) Additional tolerated soluble fiber source and/or 1/2 c of cereal Monitor freq of stool movements Continue balanced meals for BG control Monitoring/Evaluations: bowel movements, diet recall, labs f/u in 1 month Electronically Signed by: Nneka Storm 05/21/24 11:59 Clinical Dietitian [address] [address]
== END ==
PROVIDERS: Family Provider Family Medicine; PCP Family Medicine; Referring Provider Family Medicine
DX: E11.9 Type 2 diabetes mellitus without complications (principal); E78.5 Hyperlipidemia, unspecified; I10 Essential (primary) hypertension; K59.00 Constipation, unspecified; K86.89 Other specified diseases of pancreas; Z71.3 Dietary counseling and surveillance; Z68.20 Body mass index [BMI] 20.0-20.9, adult
CPT/HCPCS: 97802

== ENCOUNTER → 2024-05-14 10:34 | Outpatient (CLI) | payer MEDICARE, BC, SELFPAY ==
[2024-04-20 13:13] VITALS: BMI 19.8
== END ==
PROVIDERS: Family Provider Family Medicine; PCP Family Medicine; Visit Provider Urology
DX: R33.8 Other retention of urine (principal)
CPT/HCPCS: 87086

== ENCOUNTER → 2024-06-07 14:33 | Outpatient (CLI) | payer MEDICARE, BC, SELFPAY ==
[2024-04-20 13:13] VITALS: BMI 19.8
== END ==
PROVIDERS: Family Provider Family Medicine; PCP Family Medicine; Referring Provider Physician Assistant; Visit Provider Physician Assistant
DX: K59.1 Functional diarrhea (principal); K56.2 Volvulus
CPT/HCPCS: 87177

== ENCOUNTER → 2024-06-10 15:58 | Outpatient (CLI) | payer MEDICARE, BC, SELFPAY ==
[2024-04-20 13:13] VITALS: BMI 19.8
--- NOTE | 2024-06-18 14:30 | DIET.OUTPTC ---
Dietary Outpatient Consultation Note Consultation Date: 06/10/2024 Assessment: 83 y F referred to dietitian for E11.9 - Type 2 diabetes mellitus without complications, E78.5 - Hyperlipidemia, unspecified, I10 - Essential (primary) hypertension, K59.00 - Constipation, unspecified, K86.89 - Other specified diseases of pancreas. Betsy comes with today. Betsy was recently hospitalized for volvulus colon. Continues to have loose bowel movements multiple times a day. Is taking Miralax that was prescribed. GI consult in EMR reviewed. Presents with dietary journal. Recalls reviewed. She has kept track of fiber intake, which ranges between 20-40 grams. Meals contain protein+carb+fiber source. 3 meals/day with Ensure Original for snack. Chooses soluble fiber based breakfast choices (oatmeal, cherrios). A1c 5.4% March 2024. Ht: 5 ft 8 in Wt: 130 lb BMI: 19.8 Weight History: 06/20/23: 68.039 kg 11/21/23: 66.395 kg 02/09/24: 59.874 kg 04/06/24: 57.606 kg 05/18/24: 61.235 kg 06/11/24: 58.967 kg (-13.3% weight loss in 1 year) Nutrition Diagnosis: Unintended weight loss r/t decreased appetite and alterations in GI tract aeb 13% loss in 1 yr, non-severe Interventions: 1. Increased energy needs -Discussed unintended weight loss -Educ on higher kcal/high protein substitutions/additions and snacks 2. Discussed continued balanced meals for good BG control and reinforced nutrition educ for diabetes management -Reviewed FBG -Pt hasn't been eating dessert, but would like to have cookies or ice cream sometimes, encouraged enjoyment of sweets in moderation for quality of life, discussed portion sizing, and continued monitoring of BG. 3. Continue with sufficient fiber intake -Educ on role of metamucil and miralax -Reviewed fiber sources Goals: Continue balanced meals for BG control, portioned dessert in moderation Additional protein based snack or Ensure Complete/Enlive/Plus for additional kcals/protein 21 g fiber/day 06/14 visit with GI to discuss MiraLAX Monitoring/Evaluations: F/u as needed Electronically Signed by: Nneka Storm 06/18/24 14:[address] [address]
== END ==
PROVIDERS: Family Provider Family Medicine; PCP Family Medicine; Referring Provider Family Medicine
DX: E11.9 Type 2 diabetes mellitus without complications (principal); E78.5 Hyperlipidemia, unspecified; I10 Essential (primary) hypertension; K59.00 Constipation, unspecified; K86.89 Other specified diseases of pancreas; Z71.3 Dietary counseling and surveillance; Z68.1 Body mass index [BMI] 19.9 or less, adult
CPT/HCPCS: 97803

== ENCOUNTER → 2024-06-29 09:07 | Outpatient (CLI) | payer MEDICARE, BC, SELFPAY ==
[2024-04-20 13:13] VITALS: BMI 19.8
[2024-06-29 10:34] LABS: Hemoglobin A1C% w Est Avg Glu 5.6 % (4.0-6.0)
== END ==
PROVIDERS: Family Provider Family Medicine; PCP Family Medicine; Referring Provider Family Medicine; Visit Provider Family Medicine
DX: E11.9 Type 2 diabetes mellitus without complications (principal)
CPT/HCPCS: 36415; 83036

== ENCOUNTER → 2024-07-28 14:07 | Outpatient (CLI) | payer MEDICARE, BC, SELFPAY ==
[2024-04-20 13:13] VITALS: BMI 19.8
--- NOTE | 2024-07-28 14:08 | DI.MG.S_ITS ---
BILATERAL DIGITAL SCREENING MAMMOGRAM 3D/2D WITH CAD: 07/28/2024 CLINICAL: Routine screening. Family history of breast cancer. Comparison is made to exams dated: 06/10/2023 mammogram, 06/04/2022 mammogram, and 05/07/2021 mammogram - [facility]. Both breasts are heterogeneously dense, which may obscure small masses (category c / 51-75% glandular tissue). Current study was also evaluated with a Computer Aided Detection (CAD) system. There are benign calcifications in both breasts. No significant masses, calcifications, or other findings are seen in either breast. There has been no significant interval change. IMPRESSION: BENIGN There is no mammographic evidence of malignancy. A 1 year screening mammogram is recommended. Based on the Tyrer Cuzick model (a risk assessment model) the patient's lifetime risk is 1.3% and her 10 year risk is 0.0%. According to the ACR, ACS, and NCCN guidelines, an annual breast MRI exam along with mammogram is recommended if the patient's lifetime risk is 20% or greater. This exam was interpreted at Station ID: [id number]. NOTE: For mammograms, a report in lay terms will be sent to the patient. Approximately 15% of breast malignancies will not be visualized mammographically. In the management of a palpable breast mass, a negative mammogram must not discourage biopsy of a clinically suspicious lesion. Electronically Signed By: Jerica Thompson M.D., Ph.D. jose/hazel:07/30/2024 00:52:43 copy to: AYLEEN CALI letter sent: Normal Exam ACR BI-RADS Category 2: Benign Finding(s) [id number]
== END ==
PROVIDERS: Family Provider Family Medicine; PCP Family Medicine; Referring Provider Family Medicine; Visit Provider Family Medicine
DX: Z12.31 Encounter for screening mammogram for malignant neoplasm of breast (principal); R92.1 Mammographic calcification found on diagnostic imaging of breast; R92.333 Mammographic heterogeneous density, bilateral breasts; Z80.3 Family history of malignant neoplasm of breast
CPT/HCPCS: 77063; 77067

== ENCOUNTER → 2025-01-12 11:58 | Outpatient (CLI) | payer MEDICARE, BC, SELFPAY ==
[2024-04-20 13:13] VITALS: BMI 19.8
[2025-01-12 14:43] LABS: Hemoglobin A1C% w Est Avg Glu 5.8 % (4.0-6.0)
== END ==
PROVIDERS: Family Provider Family Medicine; PCP Family Medicine; Referring Provider Family Medicine; Visit Provider Family Medicine
DX: E11.9 Type 2 diabetes mellitus without complications (principal)
CPT/HCPCS: 36415; 83036

== ENCOUNTER → 2025-02-07 15:19 | Outpatient (CLI) | payer MEDICARE, BC, SELFPAY ==
[2024-04-20 13:13] VITALS: BMI 19.8
[2025-02-07 15:34] LABS: Appearance Urine UA CLOUDY; Bilirubin Urine UA NEGATIVE (NEGATIVE); Color Urine UA YELLOW; Glucose Urine UA NEGATIVE (Negative); Ketones Urine UA NEGATIVE (NEGATIVE); Leukocyte Esterase Urine UA 2+ (NEGATIVE); Nitrite Urine UA NEGATIVE (Negative); Occult Blood Urine UA NEGATIVE (Negative); Protein Urine UA NEGATIVE (Negative); Urobilinogen Urine UA 0.2 E.U./dL (0.2)
[2025-02-07 15:41] LABS: Bacteria Urine Many (>30); RBC Urine None Seen (0-5/HPF); Squamous Epithelial Cell Urine 5-10 /HPF (0-5/HPF); Urine Volume 10mL (spun); WBC Urine 10-30/HPF (0-5/HPF)
[2025-02-07 15:42] LABS: Amorphous Sediment Urine 1+; Culture Indicated Urine Specimen Cultured
== END ==
PROVIDERS: Family Provider Family Medicine; PCP Family Medicine; Referring Provider Family Medicine; Visit Provider Family Medicine
DX: R82.90 Unspecified abnormal findings in urine (principal); R35.0 Frequency of micturition
CPT/HCPCS: 81001; 87077; 87086; 87186

== ENCOUNTER → 2025-02-21 12:41 | Outpatient (CLI) | payer MEDICARE, BC, SELFPAY ==
[2024-04-20 13:13] VITALS: BMI 19.8
--- NOTE | 2025-02-21 12:58 | DI.MRI.S_ITS ---
PROCEDURE: MR LUMBAR SPINE WO CON INDICATIONS: chronic low back pain, worsening TECHNIQUE: Noncontrast sagittal T1 spin echo and T2 fast echo, sagittal STIR, and T2 fast spin echo through the lumbar spine. In cases with scoliosis, additional coronal T2 fast spin echo may be performed. COMPARISON: [facility], CT, CT ABDOMEN PELVIS WITH CONTRAST, 05/24/2024, 19:58. FINDINGS: Image quality: Excellent. Alignment and Curvature: Levo scoliotic curvature. Grade 1 retrolisthesis of L1 on L2. Bone Marrow: Stable chronic moderate compression deformities of T12 and L1. No acute vertebral body compression fractures. Spinal Cord: Conus medullaris terminates at the L1-L2 level. Visualized cord demonstrates normal signal and size. Paraspinous Soft Tissues: No paravertebral masses. T12-L1: Disc desiccation and mild diffuse disc bulge. Mild facet arthropathy. No significant central canal or neural foraminal stenosis. L1-L2: Retrolisthesis. Disc desiccation. Facet arthropathy. Mild central canal stenosis. Moderate to severe right and mild left neural foraminal stenosis. L2-L3: Disc desiccation and mild height loss. Mild diffuse disc bulge. Facet arthropathy and thickening of ligamentum flavum. Mild central canal stenosis. Mild bilateral neural foraminal stenosis. L3-L4: Disc desiccation and mild diffuse disc bulge. Facet arthropathy and thickening of ligamentum flavum. Mild central canal stenosis. Moderate bilateral neural foraminal stenosis. L4-L5: Disc desiccation and moderate height loss. Facet arthropathy. No central canal stenosis. Moderate right and mild left neural foraminal stenosis. L5-S1: Disc desiccation and moderate height loss. Small central disc extrusion. Facet arthropathy. No central canal stenosis. Moderate left and no right neural foraminal stenosis. IMPRESSION: 1. Multilevel degenerative changes of the lumbar spine with levo scoliotic curvature. 2. Mild central canal stenosis at L1-L2, L2-L3 and L3-L4. 3. Moderate to severe right neural foraminal stenosis at L1-L2. Multilevel mild and moderate neural foraminal stenosis at other levels. 4. Stable chronic compression deformities at T12 and L1. No acute vertebral body compression deformities. Dictated by: Gallito Michaels M.D. on 02/21/2025 at 14:35 Approved by: Gallito Michaels M.D. on 02/21/2025 at 14:47
== END ==
PROVIDERS: Family Provider Family Medicine; PCP Family Medicine; Referring Provider Family Medicine; Visit Provider Family Medicine
DX: S32.000A Wedge compression fracture of unspecified lumbar vertebra, initial encounter for closed fracture (principal); M47.816 Spondylosis without myelopathy or radiculopathy, lumbar region; M47.817 Spondylosis without myelopathy or radiculopathy, lumbosacral region; M48.061 Spinal stenosis, lumbar region without neurogenic claudication; M48.07 Spinal stenosis, lumbosacral region; M43.8X5 Other specified deforming dorsopathies, thoracolumbar region; M54.50 Low back pain, unspecified; G89.29 Other chronic pain
CPT/HCPCS: 72148

== ENCOUNTER → 2025-03-18 10:09 | Outpatient (CLI) | payer MEDICARE, BC, SELFPAY ==
[2024-04-20 13:13] VITALS: BMI 19.8
[2025-03-18 11:16] LABS: Appearance Urine UA SL CLOUDY; Bilirubin Urine UA NEGATIVE (NEGATIVE); Color Urine UA YELLOW; Glucose Urine UA NEGATIVE (Negative); Ketones Urine UA NEGATIVE (NEGATIVE); Leukocyte Esterase Urine UA 2+ (NEGATIVE); Nitrite Urine UA NEGATIVE (Negative); Occult Blood Urine UA NEGATIVE (Negative); Protein Urine UA NEGATIVE (Negative); Urobilinogen Urine UA 0.2 E.U./dL (0.2)
[2025-03-18 11:17] LABS: Urine Volume 10mL (spun); pH Urine UA 5.5 (4.5-8.0)
[2025-03-18 11:18] LABS: RBC Urine None Seen (0-5/HPF)
[2025-03-18 11:19] LABS: Bacteria Urine Many (>30); Culture Indicated Urine Specimen Cultured; Squamous Epithelial Cell Urine None Seen (0-5/HPF); WBC Urine 10-30/HPF (0-5/HPF)
== END ==
PROVIDERS: Family Provider Family Medicine; PCP Family Medicine; Referring Provider Family Medicine; Visit Provider Family Medicine
DX: R33.9 Retention of urine, unspecified (principal); N30.00 Acute cystitis without hematuria
CPT/HCPCS: 81001; 87077; 87086; 87186

== ENCOUNTER → 2025-06-03 14:37 | Outpatient (CLI) | payer MEDICARE, BC, SELFPAY ==
[2024-04-20 13:13] VITALS: BMI 19.8
--- NOTE | 2025-06-03 14:39 | DI.RAD.S_ITS ---
PROCEDURE: XR WRIST LT MIN 3V INDICATIONS: left wrist swelling, pain TECHNIQUE: 3 views of the wrist were acquired. COMPARISON: None. FINDINGS: Bones: No fractures or dislocations. Moderate degenerative change of the trapeziometacarpal, STT and radiocarpal joints includes joint space narrowing, marginal osteophytosis and subchondral sclerosis. No suspicious bony lesions. Soft tissues: No suspicious soft tissue calcifications. IMPRESSION: Polyarticular arthropathy of the TMC, STT and radiocarpal joints without evidence of acute osseous abnormality. Dictated by: Faizan Keith M.D. on 06/05/2025 at 18:41 Approved by: Faizan Keith M.D. on 06/05/2025 at 18:42
[2025-06-03 16:19] LABS: Uric Acid 3.4 mg/dL (2.5-6.2)
== END ==
PROVIDERS: Family Provider Family Medicine; PCP Family Medicine; Referring Provider Family Medicine; Visit Provider Family Medicine
DX: M25.432 Effusion, left wrist (principal); M25.532 Pain in left wrist; M12.832 Other specific arthropathies, not elsewhere classified, left wrist
CPT/HCPCS: 36415; 73110; 84550; 85651; 86140; 86200; 86430

== ENCOUNTER → 2025-07-28 12:24 | Outpatient (CLI) | payer MEDICARE, BC, SELFPAY ==
[2024-04-20 13:13] VITALS: BMI 19.8
[2025-07-28 12:54] LABS: Add Manual Diff / Slide Review NO; Hematocrit 39.9 % (36-46); Hemoglobin 13.7 g/dL (12.0-16.0); Lymphocytes Absolute Auto 2000 /uL (1100-4500); Mean Corpuscular HGB Conc 34.4 % (30-36); Mean Corpuscular Hemoglobin 32.1 PG (26-34); Mean Corpuscular Volume 93.3 fL (80-100); Platelet Count 134 X10^3/uL (150-400)
[2025-07-28 13:10] LABS: Appearance Urine UA SL CLOUDY; Bilirubin Urine UA NEGATIVE (NEGATIVE); Color Urine UA YELLOW; Glucose Urine UA NEGATIVE (Negative); Ketones Urine UA NEGATIVE (NEGATIVE); Leukocyte Esterase Urine UA 2+ (NEGATIVE); Nitrite Urine UA POSITIVE (Negative); Occult Blood Urine UA NEGATIVE (Negative); Protein Urine UA NEGATIVE (Negative); Specific Gravity Urine UA 1.015 (1.000-1.035); Urobilinogen Urine UA 0.2 E.U./dL (0.2)
[2025-07-28 13:16] LABS: Alanine Aminotransferase 28 IU/L (<35); Albumin 4.1 g/dL (3.5-5.0); Albumin Globulin Ratio 1.7 (1.0-2.8); Alkaline Phosphatase 94 U/L (38-126); Blood Urea Nitrogen 9 mg/dL (7-17); Calcium 8.9 mg/dL (8.4-10.2); Carbon Dioxide 25 mmol/L (22-32); Chloride 104 mmol/L (98-107); Cholesterol 80 mg/dL (140-199); Estimated Glomerular Filt Rate > 60 mL/min (>60); Globulin 2.4 g/dL (1.7-4.1); Glucose 104 mg/dL (70-99); HDL Cholesterol 48 mg/dL (40-60); HEMOLYSIS < 15 (0-50); Potassium 3.8 mmol/L (3.4-5.1); Sodium 138 mmol/L (137-145); Total Protein 6.5 g/dL (6.3-8.2); Triglycerides 71 mg/dL (35-150)
[2025-07-28 13:18] LABS: pH Urine UA 5.5 (4.5-8.0)
[2025-07-28 13:22] LABS: Culture Indicated Urine Specimen Cultured
[2025-07-28 13:43] LABS: TSH w/ Reflex to FT4 0.91 uIU/mL (0.47-4.68)
[2025-07-28 16:00] LABS: Microalbumi Creatinin Ratio Ur 50.0 ug/mg CR (<30)
== END ==
PROVIDERS: PCP Family Medicine; Referring Provider Family Medicine; Visit Provider Family Medicine
DX: K58.2 Mixed irritable bowel syndrome (principal); E11.9 Type 2 diabetes mellitus without complications; I10 Essential (primary) hypertension; R82.90 Unspecified abnormal findings in urine; E78.5 Hyperlipidemia, unspecified
CPT/HCPCS: 36415; 80053; 80061; 81001; 82043; 82172; 82570; 84443; 85025; 87077; 87086; 87186

== ENCOUNTER → 2025-07-30 12:56 | Outpatient (CLI) | payer MEDICARE, BC, SELFPAY ==
[2024-04-20 13:13] VITALS: BMI 19.8
--- NOTE | 2025-07-30 12:57 | DI.MG.S_ITS ---
MM screening mammo BI: 07/30/2025. BI-RADS: 2 CLINICAL: 84-year old female for bilateral screening mammogram. Tyrer-Cuzick lifetime risk of 0.9%. No personal or first-degree family history of breast cancer. The patient had a prior left breast biopsy. PRIOR EXAMS 07/28/2024, 06/10/2023, 06/04/2022, 05/07/2021. MAMMOGRAPHY TECHNIQUE: 2D and 3D (tomosynthesis) digital mammographic views obtained, with additional images as needed for full coverage. Current study was also evaluated with a Computer Aided Detection (CAD) system. DENSITY D. The breasts are extremely dense, which lowers the sensitivity of mammography. MAMMOGRAPHY FINDINGS Right: Benign-appearing calcifications noted on the right. Typically- benign vascular calcifications also noted. Left: Biopsy marker present on the left. Benign-appearing calcifications noted on the left. Typically-benign vascular calcifications also noted. IMPRESSION: * No evidence of malignancy with benign findings. RECOMMENDATIONS Bilateral * Annual screening mammography. OVERALL ASSESSMENT CATEGORY BI-RADS-2: Benign. The [employer] recommends annual screening mammography beginning at age 40 for women with average risk of breast cancer. ELECTRONICALLY SIGNED: Willard Nash M.D. on 07/31/2025 at 08:43:44 PM PT Interpreting Station ID: [id number]
== END ==
PROVIDERS: PCP Family Medicine; Referring Provider Family Medicine; Visit Provider Family Medicine
DX: Z12.31 Encounter for screening mammogram for malignant neoplasm of breast (principal); R92.343 Mammographic extreme density, bilateral breasts
CPT/HCPCS: 77063; 77067

== ENCOUNTER → 2025-08-24 17:28 | Outpatient (CLI) | payer MEDICARE, BC, SELFPAY ==
[2024-04-20 13:13] VITALS: BMI 19.8
--- NOTE | 2025-08-24 17:31 | DI.RAD.S_ITS ---
PROCEDURE: XR ANKLE LT MIN 3V INDICATIONS: Fall, left ankle pain TECHNIQUE: 3 views of the ankle were acquired. COMPARISON: [facility], , ANKLE 3 VIEWS LEFT, 08/02/2014, 16:26. FINDINGS: Bones: Nondisplaced transverse fracture of the 5th metatarsal base appreciated. No ankle fracture. Tibiotalar and talocalcaneal joints: Normal in width and alignment without arthritic change. Soft tissues: Moderate soft tissue swelling noted IMPRESSION: Nondisplaced transverse fracture - 5th metatarsal base. Dictated by: Hiren Maciel M.D. on 08/25/2025 at 13:53 Approved by: Hiren Maciel M.D. on 08/25/2025 at 13:54
== END ==
PROVIDERS: PCP Family Medicine; Referring Provider Nurse Practitioner Family; Visit Provider Nurse Practitioner Family
DX: S92.355A Nondisplaced fracture of fifth metatarsal bone, left foot, initial encounter for closed fracture (principal); M25.572 Pain in left ankle and joints of left foot
CPT/HCPCS: 73610

== ENCOUNTER → 2025-08-25 09:25 | Outpatient (CLI) | payer MEDICARE, BC, SELFPAY ==
[2024-04-20 13:13] VITALS: BMI 19.8
== END ==
PROVIDERS: PCP Family Medicine; Visit Provider Urology
DX: N30.00 Acute cystitis without hematuria (principal); R33.9 Retention of urine, unspecified
CPT/HCPCS: 51798; 81002; 87077; 87086; 87186; 99213

== ENCOUNTER → 2025-09-17 08:25 | Outpatient (CLI) | payer MEDICARE, BC, SELFPAY ==
[2024-04-20 13:13] VITALS: BMI 19.8
--- NOTE | 2025-09-17 08:27 | DI.CT.S_ITS ---
PROCEDURE: CT ABDOMEN PELVIS WO CON INDICATIONS: possible sigmoid volvulus TECHNIQUE: CT of the abdomen and pelvis was obtained without intravenous contrast. Coronal and sagittal reformats were performed. For radiation dose reduction, the following was used: automated exposure control, adjustment of mA and/or kV according to patient size. COMPARISON: [facility], CT, CT ABDOMEN PELVIS WITH CONTRAST, 05/24/2024, 19:58. [facility], CT, CT ABDOMEN PELVIS WO CON, 04/04/2022, 16:20. FINDINGS: Image quality: Diagnostic. Lower Chest: No significant findings. ABDOMEN: Liver: No contour-deforming mass. Gallbladder: Cholelithiasis without associated inflammation. Biliary ducts: No biliary dilation. Pancreas: No ductal dilation. Spleen: Size is within normal limits. Adrenal Glands: No adrenal nodules. Kidneys and Ureters: Punctate nonobstructing right renal calcification. No hydronephrosis. No contour-deforming mass. Stomach and Bowel: Dilated loop of sigmoid colon extending into the left upper quadrant and back down to the left lower quadrant measuring up to 12 cm concerning for developing volvulus. Large burden of stool within the colon proximal to this. No evidence of obstruction. Normal appendix. Distal sigmoid and rectal wall thickening is present. Peritoneum: No abnormal intraperitoneal fluid. No free air. Ventral Wall: No significant hernia. Abdominal Nodes: No retroperitoneal or mesenteric adenopathy by size criteria. Vessels: Aorta and inferior vena cava are normal in size. Atherosclerotic vascular calcifications. PELVIS: Pelvic Organs: Unremarkable. Bladder: Unremarkable. Pelvic Nodes: No enlarged lymph nodes. Miscellaneous: No inguinal hernias are seen. Bones: No aggressive osseous abnormality. Left hip arthroplasty. Decreased osseous mineralization. Degenerative changes of the spine. Stable compression deformities of T12 and L1. IMPRESSION: 1. Dilated sigmoid colon looping into the left upper quadrant and back down into the left lower quadrant measuring up to 12 cm in greatest dimension. A developing involving less cannot be excluded. 2. Wall thickening of the distal sigmoid colon and rectum, may represent proctocolitis. Findings were discussed with the technologist and patient was instructed to go to the ER for further evaluation. Dictated by: Gallito Michaels M.D. on 09/17/2025 at 9:58 Approved by: Gallito Michaels M.D. on 09/17/2025 at 10:07
== END ==
PROVIDERS: PCP Family Medicine; Referring Provider Internal Medicine Gastroenterology; Visit Provider Internal Medicine Gastroenterology
DX: K58.2 Mixed irritable bowel syndrome (principal); K59.00 Constipation, unspecified; K59.81 Ogilvie syndrome
CPT/HCPCS: 74176

== ENCOUNTER 2025-09-17 10:10 | Inpatient (IN) | payer MEDICARE, BC, SELFPAY ==
[2024-04-20 13:13] VITALS: BMI 19.8
[2025-09-17] VITALS (17 sets, daily range): BP systolic 120–197; BP diastolic 58–98; PULSE 57–76; RESP 12–25; TEMP 36–36.7; O2SAT 96–99; BMI 19.3
--- NOTE | 2025-09-17 10:53 | ED.RECABL ---
HPI - Recheck/Abnormal Lab/Rx General Chief Complaint: Recheck/Abnormal Lab/Rx Stated Complaint: Sent by Radiologist due to abd bowel issue Time Seen by Provider: 09/17/25 10:19 Source: patient Mode of arrival: Ambulatory History of Present Illness HPI narrative: Patient is an 84-year-old female history of hypertension hyperlipidemia irritable bowel syndrome presenting today from outpatient CT. It sounds like she has had diarrhea constipation off and on for the last 3 years. She had an outpatient CT with oral contrast today concerning for a sigmoid volvulus sent over from CT. She denies any nausea vomiting or abdominal pain. She actually passed gas and had a bowel movement today. She says that her colon does twist off and on intermittently and has for years. No chest pain fever or other symptoms. Related Data Home Medications ?Medication ?Instructions ?Recorded ?Confirmed CA PANTOTHENATE/FOLIC ACID/VIT 1 tab PO Q DAY ##0 09/13/11 09/15/25 (MULTIVITAMIN) acidophilus 100 million 1 cap PO DAILY 05/26/19 09/15/25 cell-pectin, citrus 10 mg capsule (Probiotic Acidophilus-Pectin) vitamin d 1 cap PO DAILY 05/26/19 09/15/25 cranberry 500 mg capsule 4,200 mg PO DAILY 06/05/20 09/15/25 azelastine 137 mcg (0.1 %) nasal 2 spray intranasal BID PRN Nasal 04/18/24 09/15/25 spray Congestion clobetasol 0.05 % topical cream 1 applic BID 04/18/24 09/15/25 estradiol 0.01% (0.1 mg/gram) 1 g vaginal 2XW 04/18/24 09/15/25 vaginal cream omeprazole 40 mg capsule,delayed 40 mg PO DAILY 10/19/24 09/15/25 release diphenoxylate-atropine 2.5 1 tab PO 4XD PRN diarrhea 10/29/24 09/15/25 mg-0.025 mg tablet cholestyramine (with sugar) oral 1 ea PO TID 07/26/25 09/15/25 powder Previous Rx's ?Medication ?Instructions ?Recorded blood-glucose meter (Blood Glucose #1 ea 01/10/20 Monitoring kit) lancets 28 gauge (BreezyLITE Lancets) #100 ea 06/02/23 Disabled Parking Permit #1 ea 09/26/23 blood sugar diagnostic (Glucocard #100 ea 06/02/24 Expression strips) colchicine 0.6 mg tablet 0.6 mg PO DAILY #14 tabs 06/03/25 spironolactone 25 mg tablet 25 mg PO DAILY #90 tabs 06/07/25 atorvastatin 40 mg tablet 40 mg PO BEDTIME #90 tabs 06/30/25 ipratropium bromide 42 mcg (0.06 2 spray intranasal BID #15 mL 07/11/25 %) nasal spray atenolol 25 mg tablet 25 mg PO BID #180 tabs 09/01/25 Allergies Allergy/AdvReac Type Severity Reaction Status Date / Time Sulfa (Sulfonamide Allergy Intermediate HIVES Verified 09/17/25 10:16 Antibiotics) ARB-Angiotensin Receptor AdvReac Severe syncope, Verified 09/17/25 10:16 Antagonist diarrhea metformin AdvReac Intermediate Diarrhea Verified 09/17/25 10:16 lisinopril AdvReac Mild COUGH Verified 09/17/25 10:16 Patient History Medical History Microalbuminuria Incomplete emptying of bladder Self-catheterizes urinary bladder Mixed irritable bowel syndrome History of urinary tract infection Chronic pseudo-obstruction of colon Urinary retention Meningioma SBO (small bowel obstruction) Uncontrolled diabetes mellitus Venous telangiectasia of lower extremity House dust mite allergy Pollen allergy Edema of both lower legs Thumb laceration Thumb fracture Contusion of left thumb Green nails Obstructive sleep apnea hypopnea, moderate Acid reflux Diarrhea Esophagitis Syncope Shortness of breath on exertion Palpitations Dizziness Hyponatremia Hypomagnesemia Snoring Abnormal mammogram of right breast (~04/2020) Oral thrush Overweight (BMI 25.0-29.9) Angular cheilitis Onychomycosis Vulvitis Lichen sclerosus of female genitalia Vision disorder Mumps (~1950) Measles (~1950) Chicken pox (~1950) Hearing loss Frequent UTI Hypertension Hyperlipidemia Chronic vaginitis (04/01/16) Osteoarthritis of left hip (04/01/16) Edema of foot (11/01/15) Surgical History Hx of inguinal hernia repair History of left hip replacement Anesthesia Status post hernia repair (~1964) Family History Brother Age: 87 Detached retina Father Cancer Loud snoring Mother Hypertension Stroke Sister Diabetes mellitus Social History marital status: number of children: 1 household members: spouse lives independently: Yes occupational status: previously employed Smoking Status: Unknown if ever smoked alcohol intake: never substance use type: does not use eating out: rarely or never Type(s) of exercise: walking and bicycling frequency: 1-2 times per week duration: 45-60 minutes/day Smoking Status: Unknown if ever smoked alcohol intake frequency: holidays/special occasions only Exam Initial Vital Signs Initial Vital Signs: Vital Signs Temperature 97.2 F L 09/17/25 10:16 Pulse Rate 67 09/17/25 10:16 Respiratory Rate 14 09/17/25 10:16 Blood Pressure 192/87 H 09/17/25 10:16 Pulse Oximetry 98 09/17/25 10:16 Oxygen Delivery Method Room Air 09/17/25 10:16 GENERAL: Well-appearing, well-nourished and in no acute distress. HEENT: Head atraumatic,EOMI, pupils reactive, face symmetric, moist mucous membranes CARDIOVASCULAR: Regular rate and rhythm without murmurs, rubs or gallops. RESPIRATORY: Breath sounds equal bilaterally, no wheezes rales or rhonchi. ABDOMEN: Soft, distended positive bowel sounds EXTREMITIES: Normal range of motion, no clubbing or edema. Neurovascularly intact NEUROLOGICAL: Alert and oriented x4.Normal gait and speech. Cranial nerves II through XII grossly intact. SKIN: Warm, dry, no laceration, no petechiae, no rashes or lesions. Course Orders Ordered: ED Orders 09/17/25 11:00 Complete Blood Count AUTO DIFF Stat Comprehensive Metabolic Panel Stat Lactate (Lactic Acid) Stat Lipase Stat Sodium Chloride (Normal Saline 0.9%) 1,000 mls @ 150 mls/hr IV CONT CUBA Last Admin: 09/17/25 11:06 Dose: 150 mls/hr Documented By: LONA Vital Signs Vital signs: Vital Signs - 8 hr 09/17/25 10:16 09/17/25 10:52 09/17/25 10:53 Temperature 97.2 F L Pulse Rate 67 62 Respiratory Rate 14 Blood Pressure 192/87 H 187/88 H Pulse Oximetry 98 99 Oxygen Delivery Method Room Air 09/17/25 10:53 09/17/25 11:00 09/17/25 11:00 Temperature Pulse Rate 64 69 Respiratory Rate Blood Pressure 197/98 H Pulse Oximetry 98 98 Oxygen Delivery Method MDM - Recheck/Abnormal Lab/Rx Lab Data 09/17/25 11:00 09/17/25 11:00 Labs: Lab Results 09/17/25 Range/Units 11:00 WBC 4.5 (4.5-11.0) X10^3/uL RBC 4.41 (4.0-5.2) X10^6/uL Hgb 14.1 (12.0-16.0) g/dL Hct 40.8 (36-46) % MCV 92.4 (80-100) fL MCH 31.9 (26-34) PG MCHC 34.5 (30-36) % RDW 13.6 (11.6-14.8) % Plt Count 100 L (150-400) X10^3/uL Neut % (Auto) 55.0 (50-75) % Lymph % (Auto) 32.3 (25-40) % [place] % (Auto) 11.3 (3-14) % Eos % (Auto) 1.2 L (2-4) % Baso % (Auto) 0.2 (0-2) % Neut # (Auto) 2500 (8181-9658) /uL Lymph # (Auto) 1500 (0243-0364) /uL [place] # (Auto) 500 (0-900) /uL Eos # (Auto) 100 (0-450) /uL Baso # (Auto) 0 (0-100) /uL Sodium 138 (137-145) mmol/L Potassium 3.7 (3.4-5.1) mmol/L Chloride 104 (98-107) mmol/L Carbon Dioxide 27 (22-32) mmol/L BUN 10 (7-17) mg/dL Creatinine 0.68 (0.52-1.04) mg/dL Estimated GFR > 60 (>60) mL/min BUN/Creatinine Ratio 14.7 (6-22) Glucose 107 H (70-99) mg/dL Lactate 0.6 L (0.7-2.1) mmol/L Calcium 9.1 (8.4-10.2) mg/dL Total Bilirubin 1.0 (0.2-1.3) mg/dL AST 46 H (14-36) IU/L ALT 36 H (<35) IU/L Alkaline Phosphatase 99 (38-126) U/L Total Protein 6.7 (6.3-8.2) g/dL Albumin 4.0 (3.5-5.0) g/dL Globulin 2.7 (1.7-4.1) g/dL Albumin/Globulin Ratio 1.5 (1.0-2.8) Lipase 90 (23-300) U/L Imaging Data CT scan - abdomen/pelvis: Radiologist's Impression: PROCEDURE: CT ABDOMEN PELVIS WO CON INDICATIONS: possible sigmoid volvulus TECHNIQUE: CT of the abdomen and pelvis was obtained without intravenous contrast. Coronal and sagittal reformats were performed. For radiation dose reduction, the following was used: automated exposure control, adjustment of mA and/or kV according to patient size. COMPARISON: [facility], CT, CT ABDOMEN PELVIS WITH CONTRAST, 05/24/2024, 19:58. [facility], CT, CT ABDOMEN PELVIS WO CON, 04/04/2022, 16:20. FINDINGS: Image quality: Diagnostic. Lower Chest: No significant findings. ABDOMEN: Liver: No contour-deforming mass. Gallbladder: Cholelithiasis without associated inflammation. Biliary ducts: No biliary dilation. Pancreas: No ductal dilation. Spleen: Size is within normal limits. Adrenal Glands: No adrenal nodules. Kidneys and Ureters: Punctate nonobstructing right renal calcification. No hydronephrosis. No contour-deforming mass. Stomach and Bowel: Dilated loop of sigmoid colon extending into the left upper quadrant and back down to the left lower quadrant measuring up to 12 cm concerning for developing volvulus. Large burden of stool within the colon proximal to this. No evidence of obstruction. Normal appendix. Distal sigmoid and rectal wall thickening is present. Peritoneum: No abnormal intraperitoneal fluid. No free air. Ventral Wall: No significant hernia. Abdominal Nodes: No retroperitoneal or mesenteric adenopathy by size criteria. Vessels: Aorta and inferior vena cava are normal in size. Atherosclerotic vascular calcifications. PELVIS: Pelvic Organs: Unremarkable. Bladder: Unremarkable. Pelvic Nodes: No enlarged lymph nodes. Miscellaneous: No inguinal hernias are seen. Bones: No aggressive osseous abnormality. Left hip arthroplasty. Decreased osseous mineralization. Degenerative changes of the spine. Stable compression deformities of T12 and L1. IMPRESSION: 1. Dilated sigmoid colon looping into the left upper quadrant and back down into the left lower quadrant measuring up to 12 cm in greatest dimension. A developing involving less cannot be excluded. 2. Wall thickening of the distal sigmoid colon and rectum, may represent proctocolitis. Findings were discussed with the technologist and patient was instructed to go to the ER for further evaluation. Dictated by: Gallito Michaels M.D. on 09/17/2025 at 9:58 MDM Narrative Medical decision making narrative: Patient is a rozina 84-year-old female history of hypertension hyperlipidemia presenting today from CT scanner for concern for sigmoid volvulus. Sounds as though patient has had intermittent episodes of this she does not have any significant pain she does not have an acute head abdomen or peritoneal signs on exam. She does have some mild distention increased bowel sounds but is overall soft. She appears well and in no acute distress. Blood work has been reviewed CBC shows no leukocytosis no anemia CMP no electrolyte abnormality glucose 107 Lactate 0.6 Bilirubin liver enzymes are within normal limits CT imaging from earlier today reviewed concern for a sigmoid volvulus Dr. Roche in ED to see and evaluate patient, and kindly accepts patient Patient overall has no leukocytosis and normal lactate no concern for ischemic bowel or sepsis at this time. She is not requiring anything for pain. Discharge Plan Departure Patient Disposition: Admitted as Observation Clinical Impression: Sigmoid volvulus Admit Date/Time: 09/17/25 11:15 Admit Provider: Harry Roche
[2025-09-17] MEDS: SODIUM CHLORIDE 0.9% 1,000 ML 150 ML IV (11:06)
[2025-09-17 11:25] LABS: Add Manual Diff / Slide Review NO; Hematocrit 40.8 % (36-46); Hemoglobin 14.1 g/dL (12.0-16.0); Lymphocytes Absolute Auto 1500 /uL (1100-4500); Mean Corpuscular HGB Conc 34.5 % (30-36); Mean Corpuscular Hemoglobin 31.9 PG (26-34); Mean Corpuscular Volume 92.4 fL (80-100); Platelet Count 100 X10^3/uL (150-400)
--- NOTE | 2025-09-17 11:25 | PM.HP.IH.1 ---
History of Present Illness History of Present Illness Date Patient Seen: 09/17/25 Time Patient Seen: 11:26 Chief complaint: Sent by Radiologist due to abd bowel issue Narrative: Betsy is an 84-year-old woman who presented to Radiology this morning for a scheduled outpatient CT scan. The CT scan showed a large dilated sigmoid colon consistent with sigmoid volvulus. The radiologist recommended she be referred to the emergency department. She denies severe abdominal pain and she has been passing gas. She denies nausea and vomiting. She has a long history of difficulty with her bowels. I saw her 2-3 years ago for diarrhea and constipation. I attempted a colonoscopy in April of 2023 but the procedure was aborted due to an inadequate prep. There was no suspicion of sigmoid volvulus at that time. Dr. Diaz performed an EGD and colonoscopy on her in March of 2024. There were no abnormal findings of the colon no than a tortuous colon. There is a note from January of [address] Moon a brush worker at [facility] which mentions the diagnosis of sigmoid volvulus. That consult note mentions that she has seen Dr. Bullock of colorectal surgery who discussed volvulus with her and recommended surgery but for some reason this never happened, possibly because the patient did not want to have surgery. She saw Dr. Orozco on for constipation and diarrhea and he ordered the CT scan that was being performed this morning. [facility] Medical History Microalbuminuria Incomplete emptying of bladder Self-catheterizes urinary bladder Mixed irritable bowel syndrome History of urinary tract infection Chronic pseudo-obstruction of colon Urinary retention Meningioma SBO (small bowel obstruction) Uncontrolled diabetes mellitus Venous telangiectasia of lower extremity House dust mite allergy Pollen allergy Edema of both lower legs Thumb laceration Thumb fracture Contusion of left thumb Green nails Obstructive sleep apnea hypopnea, moderate Acid reflux Diarrhea Esophagitis Syncope Shortness of breath on exertion Palpitations Dizziness Hyponatremia Hypomagnesemia Snoring Abnormal mammogram of right breast (~04/2020) Oral thrush Overweight (BMI 25.0-29.9) Angular cheilitis Onychomycosis Vulvitis Lichen sclerosus of female genitalia Vision disorder Mumps (~1950) Measles (~1950) Chicken pox (~1950) Hearing loss Frequent UTI Hypertension Hyperlipidemia Chronic vaginitis (04/01/16) Osteoarthritis of left hip (04/01/16) Edema of foot (11/01/15) Surgical History Hx of inguinal hernia repair History of left hip replacement Anesthesia Status post hernia repair (~1965) Family History Brother Age: 87 Detached retina Father Cancer Loud snoring Mother Hypertension Stroke Sister Diabetes mellitus Social History marital status: number of children: 1 household members: spouse lives independently: Yes occupational status: previously employed Smoking Status: Unknown if ever smoked alcohol intake: never substance use type: does not use eating out: rarely or never Type(s) of exercise: walking and bicycling frequency: 1-2 times per week duration: 45-60 minutes/day Meds Home Medications and Allergies Home Medications ?Medication ?Instructions ?Recorded ?Confirmed ?Type CA PANTOTHENATE/FOLIC ACID/VIT 1 tab PO Q DAY ##0 09/13/11 09/15/25 History (MULTIVITAMIN) acidophilus 100 million 1 cap PO DAILY 05/26/19 09/15/25 History cell-pectin, citrus 10 mg capsule (Probiotic Acidophilus-Pectin) vitamin d 1 cap PO DAILY 05/26/19 09/15/25 History blood-glucose meter (Blood Glucose #1 ea 01/10/20 09/15/25 Rx Monitoring kit) cranberry 500 mg capsule 4,200 mg PO DAILY 06/05/20 09/15/25 History lancets 28 gauge (TechLITE Lancets) #100 ea 06/02/23 09/15/25 Rx Disabled Parking Permit #1 ea 09/26/23 09/15/25 Rx azelastine 137 mcg (0.1 %) nasal 2 spray intranasal BID PRN Nasal 04/18/24 09/15/25 History spray Congestion clobetasol 0.05 % topical cream 1 applic BID 04/18/24 09/15/25 History estradiol 0.01% (0.1 mg/gram) 1 g vaginal 2XW 04/18/24 09/15/25 History vaginal cream blood sugar diagnostic (Glucocard #100 ea 06/02/24 09/15/25 Rx Expression strips) omeprazole 40 mg capsule,delayed 40 mg PO DAILY 10/19/24 09/15/25 History release diphenoxylate-atropine 2.5 1 tab PO 4XD PRN diarrhea 10/29/24 09/15/25 History mg-0.025 mg tablet colchicine 0.6 mg tablet 0.6 mg PO DAILY #14 tabs 06/03/25 09/15/25 Rx spironolactone 25 mg tablet 25 mg PO DAILY #90 tabs 06/07/25 09/15/25 Rx atorvastatin 40 mg tablet 40 mg PO BEDTIME #90 tabs 06/30/25 09/15/25 Rx ipratropium bromide 42 mcg (0.06 2 spray intranasal BID #15 mL 07/11/25 09/15/25 Rx %) nasal spray cholestyramine (with sugar) oral 1 ea PO TID 07/26/25 09/15/25 History powder atenolol 25 mg tablet 25 mg PO BID #180 tabs 09/01/25 09/15/25 Rx Allergies Allergy/AdvReac Type Severity Reaction Status Date / Time Sulfa (Sulfonamide Allergy Intermediate HIVES Verified 09/17/25 10:16 Antibiotics) ARB-Angiotensin Receptor AdvReac Severe syncope, Verified 09/17/25 10:16 Antagonist diarrhea metformin AdvReac Intermediate Diarrhea Verified 09/17/25 10:16 lisinopril AdvReac Mild COUGH Verified 09/17/25 10:16 Exam Vital Signs (past 8 hours): - 09/17/25 10:16 09/17/25 10:52 09/17/25 10:53 Temperature 97.2 F L Pulse Rate 67 62 Respiratory Rate 14 Blood Pressure 192/87 H 187/88 H Pulse Oximetry 98 99 Oxygen Delivery Method Room Air 09/17/25 10:53 09/17/25 11:00 09/17/25 11:00 Temperature Pulse Rate 64 69 Respiratory Rate Blood Pressure 197/98 H Pulse Oximetry 98 98 Oxygen Delivery Method Oxygen Delivery Method Room Air Narrative Exam Narrative: Abdomen is distended but nontender Objective Labs 09/17/25 11:00 09/17/25 11:00 Assessment & Plan Assessment and plan (1) Sigmoid volvulus: Status: Acute Plan I recommend we proceed with a colonoscopy to de torse her sigmoid volvulus. She should then be admitted and undergo a bowel prep for a sigmoid colon resection on this hospitalization. Possible surgery dates include Friday or Friday of the suite depending on OR availability and how she is doing clinically. She would like to proceed. Time-Based Coding :: [TOTAL MINUTES] spent with patient and on the chart (including review of chart, obtaining history, exam, reviewing outside data, placing orders, documenting exam and treatment plan, and counseling patient) on [DATE]. PROFEE Electrical Repairer Document charge(s): No
[2025-09-17 11:29] LABS: Alanine Aminotransferase 36 IU/L (<35); Albumin 4.0 g/dL (3.5-5.0); Albumin Globulin Ratio 1.5 (1.0-2.8); Alkaline Phosphatase 99 U/L (38-126); Blood Urea Nitrogen 10 mg/dL (7-17); Calcium 9.1 mg/dL (8.4-10.2); Carbon Dioxide 27 mmol/L (22-32); Chloride 104 mmol/L (98-107); Estimated Glomerular Filt Rate > 60 mL/min (>60); Globulin 2.7 g/dL (1.7-4.1); Glucose 107 mg/dL (70-99); HEMOLYSIS < 15 (0-50); Lactate (Lactic Acid) 0.6 mmol/L (0.7-2.1); Lipase 90 U/L (23-300); Potassium 3.7 mmol/L (3.4-5.1); Sodium 138 mmol/L (137-145); Total Protein 6.7 g/dL (6.3-8.2)
[2025-09-17] MEDS: LACTATED RINGERS 1,000 ML 42 ML IV (13:15)
--- NOTE | 2025-09-17 15:33 | SUR.PHASEI ---
Rectal tube noted; patient tolerating well.
[2025-09-17] MEDS: LACTATED RINGERS 1,000 ML 75 ML IV (19:33)
[2025-09-17] MEDS: INFLUENZA HD VACCINE 0.5 ML SYRINGE IM (19:45)
[2025-09-17] MEDS: INSULIN LISPRO 100 UNIT/ML 3ML VIAL SUBCUT (21:10)
[2025-09-18 06:35] LABS: Blood Urea Nitrogen 9 mg/dL (7-17); Calcium 8.9 mg/dL (8.4-10.2); Carbon Dioxide 27 mmol/L (22-32); Chloride 103 mmol/L (98-107); Estimated Glomerular Filt Rate > 60 mL/min (>60); Glucose 133 mg/dL (70-99); HEMOLYSIS < 15 (0-50); Potassium 3.7 mmol/L (3.4-5.1); Sodium 134 mmol/L (137-145)
[2025-09-18 06:37] LABS: Add Manual Diff / Slide Review NO; Hematocrit 38.1 % (36-46); Hemoglobin 13.3 g/dL (12.0-16.0); Lymphocytes Absolute Auto 1000 /uL (1100-4500); Mean Corpuscular HGB Conc 34.9 % (30-36); Mean Corpuscular Hemoglobin 32.0 PG (26-34); Mean Corpuscular Volume 91.8 fL (80-100); Platelet Count 114 X10^3/uL (150-400)
[2025-09-18] MEDS: LACTATED RINGERS 1,000 ML 75 ML IV (08:20)
[2025-09-18] MEDS: IBUPROFEN 600 MG TABLET PO (08:28)
[2025-09-18] MEDS: ENOXAPARIN 40 MG/0.4 ML SYRINGE SUBCUT (08:28)
--- NOTE | 2025-09-18 09:01 | PM.OP.COLON ---
Operative Date/Time/Diagnoses Date of procedure: 09/17/25 Time of procedure: 15:25 Pre-op diagnosis: Sigmoid volvulus Post-op diagnosis: same Procedure & Clinicians Study performed: Colonoscopy with detorsion of sigmoid volvulus Placement of rectal tube Same procedure(s) as scheduled: Yes Surgeon: Harry Roche Anesthesia Type: General Procedure Notes Procedure in detail: Surgeon: Harry Roche MD Anesthesia: Gay Bowen STEAM SHOVEL OPERATOR Procedure: The patient was brought to the endoscopy suite, placed in left lateral decubitus position. The patient was connected to monitoring devices. A time-out was performed. General endotracheal anesthesia was administered. A digital rectal exam was performed and was normal. The scope was then inserted and advanced to the transverse colon. The extremely dilated segments of colon were decompressed with suctioned. The mucosa was examined as the scope was withdrawn. No ischemia was noted. The scope was withdrawn and the rectal tube was grasped with a snare and the scope was reinserted to roughly the splenic flexure. The snare was opened to release the rectal tube and the scope was withdrawn leaving the rectal tube in place. The patient was awakened and brought to recovery. Sedation time: See anesthesia records EBL: 0 Findings: Detorsion and decompression of sigmoid volvulus Estimated Blood Loss: 0 Complications: none Post-procedure Disposition: PACU
[2025-09-18 10:57] VITALS: BP 157/92
--- NOTE | 2025-09-18 12:51 | P.PN_ITS ---
Subjective Subjective Date Patient Seen: 09/18/25 Time Patient Seen: 12:52 Interval history: Doing well today Rectal tube remains in place She denies flatus Exam Vital Signs (past 8 hours): - 09/18/25 10:57 Blood Pressure 157/92 H Oxygen Delivery Method Room Air Const General: No acute distress Objective Labs 09/18/25 06:05 09/18/25 06:05 Labs: Laboratory Results - last 24 hr 09/17/25 09/17/25 09/18/25 16:49 21:01 06:05 WBC 8.5 D RBC 4.15 Hgb 13.3 Hct 38.1 MCV 91.8 MCH 32.0 MCHC 34.9 RDW 13.2 Plt Count 114 L Neut % (Auto) 82.9 H D Lymph % (Auto) 11.9 L D [place] % (Auto) 5.1 Eos % (Auto) 0.0 L Baso % (Auto) 0.1 Neut # (Auto) 7100 H Lymph # (Auto) 1000 L [place] # (Auto) 400 Eos # (Auto) 0 Baso # (Auto) 0 Sodium 134 L Potassium 3.7 Chloride 103 Carbon Dioxide 27 BUN 9 Creatinine 0.56 Estimated GFR > 60 BUN/Creatinine Ratio 16.1 Glucose 133 H POC Whole Bld Glucose 150 H 197 H Calcium 8.9 09/18/25 09/18/25 08:27 12:22 WBC RBC Hgb Hct MCV MCH MCHC RDW Plt Count Neut % (Auto) Lymph % (Auto) [place] % (Auto) Eos % (Auto) Baso % (Auto) Neut # (Auto) Lymph # (Auto) [place] # (Auto) Eos # (Auto) Baso # (Auto) Sodium Potassium Chloride Carbon Dioxide BUN Creatinine Estimated GFR BUN/Creatinine Ratio Glucose POC Whole Bld Glucose 127 H 149 H Calcium PFSH Medical History Microalbuminuria Incomplete emptying of bladder Self-catheterizes urinary bladder Mixed irritable bowel syndrome History of urinary tract infection Chronic pseudo-obstruction of colon Urinary retention Meningioma SBO (small bowel obstruction) Uncontrolled diabetes mellitus Venous telangiectasia of lower extremity House dust mite allergy Pollen allergy Edema of both lower legs Thumb laceration Thumb fracture Contusion of left thumb Green nails Obstructive sleep apnea hypopnea, moderate Acid reflux Diarrhea Esophagitis Syncope Shortness of breath on exertion Palpitations Dizziness Hyponatremia Hypomagnesemia Snoring Abnormal mammogram of right breast (~04/2020) Oral thrush Overweight (BMI 25.0-29.9) Angular cheilitis Onychomycosis Vulvitis Lichen sclerosus of female genitalia Vision disorder Mumps (~1950) Measles (~1949) Chicken pox (~1949) Hearing loss Frequent UTI Hypertension Hyperlipidemia Chronic vaginitis (04/01/16) Osteoarthritis of left hip (04/01/16) Edema of foot (11/01/15) Surgical History Hx of inguinal hernia repair History of left hip replacement Anesthesia Status post hernia repair (~1964) Family History Brother Age: 87 Detached retina Father Cancer Loud snoring Mother Hypertension Stroke Sister Diabetes mellitus Social History marital status: number of children: 1 household members: spouse lives independently: Yes occupational status: previously employed Smoking Status: Unknown if ever smoked alcohol intake: never substance use type: does not use eating out: rarely or never Type(s) of exercise: walking and bicycling frequency: 1-2 times per week duration: 45-60 minutes/day Assessment & Plan Assessment and plan (1) Sigmoid volvulus: Status: Acute Plan Start prep tomorrow for anticipated robotic sigmoid colon resection in Friday Time-Based Coding :: [TOTAL MINUTES] spent with patient and on the chart (including review of chart, obtaining history, exam, reviewing outside data, placing orders, documenting exam and treatment plan, and counseling patient) on [DATE]. Quality VTE Deep Vein Thrombosis/Pulmonary Embolism Present on Admission: No IH PROFEE President Sales And Marketing Document charge(s): No
[2025-09-18] MEDS: NEOMYCIN 500 MG TABLET 1000 MG PO ×3 (14:29→21:19)
--- NOTE | 2025-09-18 16:00 | CM.DANOTE ---
B DCP Assessment note pt is a 84yo F with sigmoid volvulus. followed by Dr. Roche. plan for prep friday for sigmoid colon resection Friday. MECHANICAL MANUFACTURING TECHNICIAN reviewed EMR per chart, pt lives in home in [place] with spouse, indep at baseline. walks/rides bike daily. P: anticipate eventual dc home when medically stable, likely sometime late next week. no obvious needs from chart review at this time. will meet with pt post op/continue to follow case closely in case any additional DCP needs should arise SUSAN Sales Discharge Planning/Care Management CM Discharge Assessment Start: 09/17/25 11:18 Freq: Status: Active Protocol: Document 09/18/25 15:57 SL (Rec: 09/18/25 15:58 SL [id number]) Discharge Planning Assessment Assigned Discharge SUSAN Tamayo Commercial Finance Manager Provider Parveen Flores Insurance Medicare Insurance Comment BCBS out of [facility] DPOA/Assigned Handy, spouse Designee Name Contact Information [phone] Advance Directives? Yes: DPOA Advance Directives No on File History Provided By Patient,Family Member,Medical Record Prior Living Apartment/Condo Arrangements Household Members spouse Independent with ADL Yes 's Is patient alert and Yes oriented? Discharge Plan Home Transportation Spouse Arrangement Referrals Initiated None needed Review Status In Process Please Provide Date 09/18/25 Initial DC Assessment Was Performed Next Review Type Continued Stay Review
[2025-09-18 18:55] VITALS: BP 161/81; PULSE 75; RESP 17; TEMP 33.2; O2SAT 96
[2025-09-18 19:00] VITALS: BP 171/88; PULSE 70; RESP 18; TEMP 36.2; O2SAT 96
[2025-09-18] MEDS: ATORVASTATIN 20 MG TABLET 40 MG PO (20:24)
[2025-09-18] MEDS: IPRATROPIUM 0.06% NASAL 15 ML 2 SPRAY NASAL (20:24)
[2025-09-19] MEDS: PANTOPRAZOLE DR 40 MG TABLET PO (06:40)
--- NOTE | 2025-09-19 06:50 | PM.PN.IH.1 ---
Subjective Subjective Date Patient Seen: 09/19/25 Time Patient Seen: 06:50 Interval history: No new c/o Rectal tube in place Exam Vital Signs (past 8 hours): Oxygen Delivery Method Room Air Oxygen Flow Rate 0 Const General: comfortable Resp Effort & Inspection: normal respiratory effort and able to speak in complete sentences Cardio Rate: regular rate GI Other: ABD: marked distention, +tympany, non-peritoneal Objective Labs 09/18/25 06:05 09/18/25 06:05 Labs: Laboratory Results - last 24 hr 09/18/25 09/18/25 09/18/25 08:27 12:22 17:08 POC Whole Bld Glucose 127 H 149 H 117 H 09/18/25 19:23 POC Whole Bld Glucose 139 H PFSH Medical History Microalbuminuria Incomplete emptying of bladder Self-catheterizes urinary bladder Mixed irritable bowel syndrome History of urinary tract infection Chronic pseudo-obstruction of colon Urinary retention Meningioma SBO (small bowel obstruction) Uncontrolled diabetes mellitus Venous telangiectasia of lower extremity House dust mite allergy Pollen allergy Edema of both lower legs Thumb laceration Thumb fracture Contusion of left thumb Green nails Obstructive sleep apnea hypopnea, moderate Acid reflux Diarrhea Esophagitis Syncope Shortness of breath on exertion Palpitations Dizziness Hyponatremia Hypomagnesemia Snoring Abnormal mammogram of right breast (~04/2020) Oral thrush Overweight (BMI 25.0-29.9) Angular cheilitis Onychomycosis Vulvitis Lichen sclerosus of female genitalia Vision disorder Mumps (~1950) Measles (~1949) Chicken pox (~1949) Hearing loss Frequent UTI Hypertension Hyperlipidemia Chronic vaginitis (04/01/16) Osteoarthritis of left hip (04/01/16) Edema of foot (11/01/15) Surgical History Hx of inguinal hernia repair History of left hip replacement Anesthesia Status post hernia repair (~1964) Family History Brother Age: 87 Detached retina Father Cancer Loud snoring Mother Hypertension Stroke Sister Diabetes mellitus Social History marital status: number of children: 1 household members: spouse lives independently: Yes occupational status: previously employed Smoking Status: Unknown if ever smoked alcohol intake: never substance use type: does not use eating out: rarely or never Type(s) of exercise: walking and bicycling frequency: 1-2 times per week duration: 45-60 minutes/day Assessment & Plan Assessment and plan (1) Sigmoid volvulus: Status: Acute Plan Plan bowel prep today Possible colon resection tomorrow, 09/20 Stable exam, AVSS Time-Based Coding :: [TOTAL MINUTES] spent with patient and on the chart (including review of chart, obtaining history, exam, reviewing outside data, placing orders, documenting exam and treatment plan, and counseling patient) on [DATE]. Quality VTE Deep Vein Thrombosis/Pulmonary Embolism Present on Admission: No IH PROFEE Cleaning Technician Document charge(s): Yes Charge Codes Subsequent inpatient/observation care: [id number]
[2025-09-19 07:00] VITALS: BP 163/76; PULSE 65; RESP 16; TEMP 36.7; O2SAT 97
[2025-09-19] MEDS: SPIRONOLACTONE 25 MG TABLET PO (09:36)
[2025-09-19] MEDS: ENOXAPARIN 40 MG/0.4 ML SYRINGE SUBCUT (09:37)
[2025-09-19] MEDS: PEG3350/SOD SULF,BICARB,CL/KCL 4,000 ML SOLUTION 4000 ML PO (09:37)
[2025-09-19] MEDS: NEOMYCIN 500 MG TABLET 1000 MG PO ×3 (14:38→20:59)
[2025-09-19] MEDS: ONDANSETRON 4 MG/2 ML INJ IV (17:01)
[2025-09-19 20:47] VITALS: BP 147/71; PULSE 69; RESP 16; TEMP 36.1; O2SAT 95
[2025-09-19 20:52] VITALS: BP 159/75; PULSE 75; RESP 18; TEMP 36.2; O2SAT 95
[2025-09-19] MEDS: IPRATROPIUM 0.06% NASAL 15 ML 2 SPRAY NASAL (20:58)
[2025-09-19] MEDS: ATORVASTATIN 20 MG TABLET 40 MG PO (21:00)
[2025-09-20] VITALS (14 sets, daily range): BP systolic 141–168; BP diastolic 61–81; PULSE 68–91; RESP 8–18; TEMP 35.7–37.4; O2SAT 92–100
--- NOTE | 2025-09-20 | PATH_ITS ---
[facility] Accession Number: [id number] No. of containers..01 Tissue . 01 Material submitted: . colon - SIGMOID COLON . 01 Diagnosis: SIGMOID COLON, SEGMENTAL RESECTION: Segment of colon with vascular congestion, consistent with clinical impression of volvulus. No active inflammation identified. Three benign pericolonic lymph nodes. Negative for dysplasia or malignancy. MRV 10/03/2025 1935 Local . 01 Electronically signed: . Solo Curiel MD, PhD, Pathologist NPI- [id number] . 01 Gross description: . The specimen is received in formalin with two patient identifiers and sigmoid colon consists of a markedly distended segment of large bowel. The segment of large bowel measures 52.5 cm in length and ranges from 5.1 cm in diameter up to 17.5 cm. The resection margins are stapled, and the dilated end of the large bowel is inked blue. The smaller nondilated end is inked black. The serosal surface is villagomez-pink, smooth and glistening with slightly distended serosal vessels and a minimal amount of attached pericolonic adipose tissue. The bowel wall is thickened at the dilated end and ranges from 0.2 up to 0.5 cm in thickness. No perforation is appreciated. The mid aspect of the bowel is slightly torsed and results in a slight luminal narrowing with the bowel lumen measuring 4.9 cm in diameter in this area. The mucosa is diffusely effaced, focally hyperemic, and focally ulcerated with yellow to green laminated exudative areas which are predominantly located at the distended end of the specimen. No mucosal polyps or masses are appreciated. The minimal amount of attached pericolonic adipose tissue is yellow, lobulated, and otherwise unremarkable. No thrombi are appreciated in the mesenteric vessels. The pericolonic fat is further examined to show three villagomez-pink, encapsulated lymph node candidates ranging from 0.5 up to 0.8 cm in greatest dimension. Gastrointestinal Technician sections are submitted as follows: . A1: Black-inked nondistended staple line resection margin. A2: Distended blue-inked staple line resection margin (patient financial representative). A3: Ulcerated bowel mucosa at distended end of specimen. A4: Gastrointestinal Technician sections of bowel at area of luminal narrowing. A5: Gastrointestinal Technician sections of bowel at nondistended aspect. A6: Three lymph node candidates. ([id number]) /MRV 09/21/2025 1903 Local . 01 Pathologist provided ICD-10: K56.2 . 01 CPT . 980315 Specimen Comment: A courtesy copy of this report has been sent to [phone] Performed at: [address] [facility] [address], [place], [place] [id number] MD Shaun Jean MD Phone: [phone]
--- NOTE | 2025-09-20 09:10 | CM.DPNOTE ---
DCP note TEMPORARY DATA ENTRY CLERK reviewed EMR per chart as far at this technical document writer can tell, plan remains for sigmoid colon resection later this afternoon. bowel prep completed yesterday. CM team will continue to follow closely in case any DCP needs arise post op. At this time, anticipate eventual dc home with spouse support when medically stable. timeline pending post op recovery. SUSAN Sales
--- NOTE | 2025-09-20 10:49 | DIET.CONS ---
Dietary Consultation Note Admission Date: 09/17/2025 11:15 Assessment: 84 y F admitted for sigmoid volvulus. Dietitian screened for low BMI. Pt having surgery at noon. EMR reviewed. This RD familiar with pt from OP visits. Pt recently lost 4 lb in 1 month navigating dietary changes in attempt to reduce diarrhea. Was adding ONS in daily to help. Goal weight discussed was 140 lb for BMI of 21. Ht: 172.72 cm Wt: 57.606 kg BMI: 19.3 UBW: 130 lb 1 month ago per pt at home scale (-3% loss in 1 month, non-severe); 140 lb in previous months per EMR Last BM: 09/18/25 (09/18/25 18:00) MNA: 12 Vince Score: 21 Diet: 09/20/25 08:36 NPO Diet Diet Modifications: NPO Type: NPO except for Meds Nutrition Percent Meal Consumed 50% 09/19/25 13:03 Percent Meal Consumed 50% 09/18/25 18:00 Percent Meal Consumed 50% 09/18/25 17:37 Labs: RBC 4.15 X10^6/uL (4.0-5.2) 09/18/25 06:05 Hgb 13.3 g/dL (12.0-16.0) 09/18/25 06:05 Hct 38.1 % (36-46) 09/18/25 06:05 Creatinine 0.56 mg/dL (0.52-1.04) 09/18/25 06:05 Lactate 0.6 mmol/L (0.7-2.1) L 09/17/25 11:00 Nutrition Diagnosis: Altered GI function r/t alterations in GI tract aeb sigmoid volvulus with plan for OR Interventions: -Will f/u post-op and diet progression per surgery to provide appropriate protein supplementation Electronically Signed by: Nneka Sotrm 09/20/25 10:50 Clinical Dietitian [address] [address]
[2025-09-20] MEDS: LACTATED RINGERS 1,000 ML 42 ML IV ×4 (12:21→18:20)
--- NOTE | 2025-09-20 12:32 | PM.PN.IH.1 ---
Subjective Subjective Date Patient Seen: 09/20/25 Time Patient Seen: 12:32 Interval history: Betsy was only able to get about half of the prep down and she has not had any output. Otherwise no new problems. Exam Vital Signs (past 8 hours): - 09/20/25 08:00 09/20/25 12:11 Temperature 97.5 F L 97.0 F L Pulse Rate 71 75 Respiratory Rate 18 17 Blood Pressure 156/70 H 162/81 H Pulse Oximetry 96 95 Oxygen Delivery Method Room Air Oxygen Flow Rate 0 Oxygen Delivery Method Room Air Oxygen Flow Rate 0 Const General: No acute distress Objective Labs 09/18/25 06:05 09/18/25 06:05 Labs: Laboratory Results - last 24 hr 09/19/25 09/19/25 09/20/25 16:56 20:17 07:33 POC Whole Bld Glucose 93 89 80 09/20/25 12:00 POC Whole Bld Glucose 81 PFSH Medical History Microalbuminuria Incomplete emptying of bladder Self-catheterizes urinary bladder Mixed irritable bowel syndrome History of urinary tract infection Chronic pseudo-obstruction of colon Urinary retention Meningioma SBO (small bowel obstruction) Uncontrolled diabetes mellitus Venous telangiectasia of lower extremity House dust mite allergy Pollen allergy Edema of both lower legs Thumb laceration Thumb fracture Contusion of left thumb Green nails Obstructive sleep apnea hypopnea, moderate Acid reflux Diarrhea Esophagitis Syncope Shortness of breath on exertion Palpitations Dizziness Hyponatremia Hypomagnesemia Snoring Abnormal mammogram of right breast (~04/2020) Oral thrush Overweight (BMI 25.0-29.9) Angular cheilitis Onychomycosis Vulvitis Lichen sclerosus of female genitalia Vision disorder Mumps (~1950) Measles (~1949) Chicken pox (~1949) Hearing loss Frequent UTI Hypertension Hyperlipidemia Chronic vaginitis (04/01/16) Osteoarthritis of left hip (04/01/16) Edema of foot (11/01/15) Surgical History Hx of inguinal hernia repair History of left hip replacement Anesthesia Status post hernia repair (~1964) Family History Brother Age: 87 Detached retina Father Cancer Loud snoring Mother Hypertension Stroke Sister Diabetes mellitus Social History marital status: number of children: 1 household members: spouse lives independently: Yes occupational status: previously employed Smoking Status: Unknown if ever smoked alcohol intake: never substance use type: does not use eating out: rarely or never Type(s) of exercise: walking and bicycling frequency: 1-2 times per week duration: 45-60 minutes/day Assessment & Plan Assessment and plan (1) Sigmoid volvulus: Status: Acute Plan We will proceed with robotic sigmoid colectomy for volvulus. Since she was unable to complete her prep I will perform a conventional anastomosis. Time-Based Coding :: [TOTAL MINUTES] spent with patient and on the chart (including review of chart, obtaining history, exam, reviewing outside data, placing orders, documenting exam and treatment plan, and counseling patient) on [DATE]. Quality VTE Deep Vein Thrombosis/Pulmonary Embolism Present on Admission: No IH PROFEE Double Needle Operator Lockstitch Document charge(s): No
[2025-09-20] MEDS: AMPICILLIN/SULBACTAM 3 GM 3 GM in SODIUM CHLORIDE 0.9% 100 ML IV (12:53)
--- NOTE | 2025-09-20 13:18 | SUR.OPER ---
Lithotomy on padded OR bed. [place] Pad Positioner under torso. Head on pillow, arms padded and tucked at sides. Legs secured in padded yellow fins stirrups. Surgeon approved final position.
--- NOTE | 2025-09-20 14:34 | SUR.OPER ---
Facial pillow applied placed on patient per anesthesia request, monitored by anesthesiologist. Dia present prior to OR. Rectal tube discontinued by Dr. Roche prior to procedure start.
[2025-09-20] MEDS: ACETAMINOPHEN IV 1,000 MG/100 ML VIAL 400 MG IV (14:57)
--- NOTE | 2025-09-20 16:50 | SUR.OPER ---
Patient spouse updated over the phone.
--- NOTE | 2025-09-20 17:31 | PM.OP.1 ---
Operative Date/Time/Diagnoses Date of procedure: 09/20/25 Time of procedure: 17:31 Pre-op diagnosis: Chronic sigmoid volvulus Post-op diagnosis: same Procedure & Clinicians Procedure: Robotic sigmoid colon resection Same procedure(s) as scheduled: Yes Surgeon: Harry Roche Assisted?: Yes Procurement Accountant: Ramon Schmitz Anesthesia Type: General Operative Notes Findings: Chronically dilated, enlarged sigmoid colon and rectum Applied: none Estimated Blood Loss (mL): 25 Procedure in detail: The patient is a an 84-year-old woman who presented to the emergency department with sigmoid volvulus. She underwent colonoscopic detorsion 2 days prior to the operation. She was consented for a robotic assisted sigmoid colon resection. The patient was brought to the operating room endotracheal anesthesia was induced. Unasyn was administe the red. A time-out was performed. Because she had not had any output after her prep, first flexible sigmoidoscopy was performed. Air and liquid stool were suctioned from the sigmoid colon. Next the abdomen was prepped and draped in the usual fashion and a time-out was performed. An 8 mm supraumbilical incision was created and an 8 mm port was placed by cutdown technique. The 8 mm robotic port was inserted atraumatically. The abdomen was insufflated to 15 mmHg and a camera was inserted. There was no evidence of an injury from the entry. Next 8 mm ports were placed in the left upper quadrant and right lower quadrant. A 12 mm robotic port was placed in the far right lower quadrant. A 5 mm assist port was placed in the right upper quadrant. Next, a 5 cm low midline incision was created. The small Dain retractor was placed. A 5 mm laparoscopic port was placed through the Dain and the string was wrapped around the trocar to create a seal. The patient was placed in Trendelenburg and the table was air planed to the patient's right side. At this point the robot was docked. The abdomen was inspected. There was a massively dilated redundant sigmoid colon looping up into the upper abdomen. The colon was mobilized medially by taking down the white line of Toldt. A window was created in the mesentery at the junction between the descending colon and sigmoid colon and the colon was divided with zbigniew firings of a green stapler. Next, a window was created in the mesentery adjacent to the proximal rectum and the proximal rectum was divided with 3 firings of the green stapler. The mesentery was divided using the vessel sealer staying close to the bowel wall. The left ureter was well visualized and protected. Next, the robot was undocked and the specimen was extracted through the low midline incision. The descending colon was grasped and brought out through the Dain wound retractor. A 29 EEA stapler was used. The anvil was sewn into the descending colon using a running 3-0 PDS stitch. The descending colon was dropped back into the pelvis and pneumoperitoneum was reestablished. Firefly was used to assure good perfusion the anastomosis. The 29 EEA stapler was fired and the donuts were intact. The leak test was negative. Finally, the ports were all removed under direct vision. The low midline incision was closed with a running 0 PDS. The supra umbilical fascial defect was closed with an 0 Vicryl [id number] stitch. The fascia at the 12 mm port in the right lower quadrant was closed with an 0 Vicryl [id number] stitch. Specimen: Sigmoid colon Complications: none Post-operative Condition: stable Disposition: PACU
[2025-09-20 17:53] LABS: Hematocrit 37.6 % (36-46); Hemoglobin 12.9 g/dL (12.0-16.0); Mean Corpuscular HGB Conc 34.3 % (30-36); Mean Corpuscular Hemoglobin 32.2 PG (26-34); Mean Corpuscular Volume 93.8 fL (80-100); Platelet Count 99 X10^3/uL (150-400)
[2025-09-20] MEDS: ONDANSETRON 4 MG/2 ML INJ IV (19:14)
--- NOTE | 2025-09-20 19:46 | PC.NURSE ---
Patient taken off unit at approximately noon via bed by preop RN. Report given at bedside patient with rectal tube w/o any output after go lytely. abd distended with hyperactive BS. Patient denied pain presently. Patient returned to Room 217 at 1850 this evening Post OP RN arrived at bedside giving report. Patient complained of nausea and given zofran. Report given at bedside to noc shift RN. Lap sites observed c/d/i
[2025-09-20] MEDS: SODIUM CHLORIDE 0.9% FLUSH 10 ML IV (21:00)
[2025-09-20] MEDS: ATORVASTATIN 20 MG TABLET 40 MG PO (21:00)
[2025-09-21 02:00] VITALS: BP 136/58; PULSE 85; RESP 18; TEMP 36.6; O2SAT 97
[2025-09-21 06:07] LABS: Add Manual Diff / Slide Review NO; Hematocrit 36.0 % (36-46); Hemoglobin 12.8 g/dL (12.0-16.0); Lymphocytes Absolute Auto 800 /uL (1100-4500); Mean Corpuscular HGB Conc 35.5 % (30-36); Mean Corpuscular Hemoglobin 32.8 PG (26-34); Mean Corpuscular Volume 92.2 fL (80-100); Platelet Count 93 X10^3/uL (150-400)
[2025-09-21] MEDS: PANTOPRAZOLE DR 40 MG TABLET PO (06:29)
[2025-09-21 06:30] LABS: Blood Urea Nitrogen 10 mg/dL (7-17); Calcium 8.2 mg/dL (8.4-10.2); Carbon Dioxide 27 mmol/L (22-32); Chloride 100 mmol/L (98-107); Estimated Glomerular Filt Rate > 60 mL/min (>60); Glucose 138 mg/dL (70-99); HEMOLYSIS < 15 (0-50); Potassium 3.9 mmol/L (3.4-5.1); Sodium 135 mmol/L (137-145)
[2025-09-21 07:34] VITALS: BP 145/67; PULSE 83; RESP 17; TEMP 36.3; O2SAT 98
[2025-09-21] MEDS: SPIRONOLACTONE 25 MG TABLET PO (08:51)
[2025-09-21] MEDS: ENOXAPARIN 40 MG/0.4 ML SYRINGE SUBCUT (08:51)
[2025-09-21] MEDS: SODIUM CHLORIDE 0.9% FLUSH 10 ML IV (08:54)
--- NOTE | 2025-09-21 10:41 | P.PN_ITS ---
Subjective Subjective Date Patient Seen: 09/21/25 Time Patient Seen: 10:42 Interval history: Betsy feels well today with minimal pain. Exam Vital Signs (past 8 hours): - 09/21/25 07:34 Temperature 97.3 F L Pulse Rate 83 Respiratory Rate 17 Blood Pressure 145/67 H Pulse Oximetry 98 Oxygen Flow Rate 0 Oxygen Delivery Method Nasal Cannula Oxygen Flow Rate 0 Narrative Exam Narrative: Abdomen is moderately distended, nontender Objective Labs 09/21/25 05:28 09/21/25 05:28 Labs: Laboratory Results - last 24 hr 09/20/25 09/20/25 09/20/25 12:00 17:38 18:18 WBC 7.0 RBC 4.01 Hgb 12.9 Hct 37.6 MCV 93.8 MCH 32.2 MCHC 34.3 RDW 13.7 Plt Count 99 L Neut % (Auto) Lymph % (Auto) [place] % (Auto) Eos % (Auto) Baso % (Auto) Neut # (Auto) Lymph # (Auto) [place] # (Auto) Eos # (Auto) Baso # (Auto) Sodium Potassium Chloride Carbon Dioxide BUN Creatinine Estimated GFR BUN/Creatinine Ratio Glucose POC Whole Bld Glucose 81 119 H Calcium Blood Type O Positive Antibody Screen Negative 09/20/25 09/21/25 09/21/25 21:03 05:28 07:39 WBC 7.2 RBC 3.91 L Hgb 12.8 Hct 36.0 MCV 92.2 MCH 32.8 MCHC 35.5 RDW 13.5 Plt Count 93 L Neut % (Auto) 80.1 H Lymph % (Auto) 11.4 L [place] % (Auto) 8.3 Eos % (Auto) 0.0 L Baso % (Auto) 0.2 Neut # (Auto) 5800 Lymph # (Auto) 800 L [place] # (Auto) 600 Eos # (Auto) 0 Baso # (Auto) 0 Sodium 135 L Potassium 3.9 Chloride 100 Carbon Dioxide 27 BUN 10 Creatinine 0.61 Estimated GFR > 60 BUN/Creatinine Ratio 16.4 Glucose 138 H POC Whole Bld Glucose 160 H 122 H Calcium 8.2 L Blood Type Antibody Screen [facility] Medical History Microalbuminuria Incomplete emptying of bladder Self-catheterizes urinary bladder Mixed irritable bowel syndrome History of urinary tract infection Chronic pseudo-obstruction of colon Urinary retention Meningioma SBO (small bowel obstruction) Uncontrolled diabetes mellitus Venous telangiectasia of lower extremity House dust mite allergy Pollen allergy Edema of both lower legs Thumb laceration Thumb fracture Contusion of left thumb Green nails Obstructive sleep apnea hypopnea, moderate Acid reflux Diarrhea Esophagitis Syncope Shortness of breath on exertion Palpitations Dizziness Hyponatremia Hypomagnesemia Snoring Abnormal mammogram of right breast (~04/2020) Oral thrush Overweight (BMI 25.0-29.9) Angular cheilitis Onychomycosis Vulvitis Lichen sclerosus of female genitalia Vision disorder Mumps (~1949) Measles (~1949) Chicken pox (~1949) Hearing loss Frequent UTI Hypertension Hyperlipidemia Chronic vaginitis (04/01/16) Osteoarthritis of left hip (04/01/16) Edema of foot (11/01/15) Surgical History Hx of inguinal hernia repair History of left hip replacement Anesthesia Status post hernia repair (~1964) Family History Brother Age: 87 Detached retina Father Cancer Loud snoring Mother Hypertension Stroke Sister Diabetes mellitus Social History marital status: number of children: 1 household members: spouse lives independently: Yes occupational status: previously employed Smoking Status: Unknown if ever smoked alcohol intake: never substance use type: does not use eating out: rarely or never Type(s) of exercise: walking and bicycling frequency: 1-2 times per week duration: 45-60 minutes/day Assessment & Plan Assessment and plan (1) Sigmoid volvulus: Status: Acute Plan Ambulate today VAIBHAV Dia if she is comfortable with self cathing today Advance diet when passing gas Time-Based Coding :: [TOTAL MINUTES] spent with patient and on the chart (including review of chart, obtaining history, exam, reviewing outside data, placing orders, documenting exam and treatment plan, and counseling patient) on [DATE]. Quality VTE Deep Vein Thrombosis/Pulmonary Embolism Present on Admission: No IH PROFEE Biomass Power Plant Manager Document charge(s): No
--- NOTE | 2025-09-21 11:10 | CM.DPNOTE ---
DCP Continued: Reviewed EMR and team rounds for pt?s medical status. Per surgeon, pt advancing diet and experiencing minimal pain - encouraging ambulation. No discharge needs identified at this time. Plan: Anticipating discharge home with spouse on 09/22 or when medically cleared. CM Team will continue to follow for coordination of discharge plans. CHRISTA Saldivar
--- NOTE | 2025-09-21 14:58 | PC.NURSE ---
Day shift: Small amount of blood in Pt's stool this afternoon. Less than 10mls approx. Called (approx 1450) and left a message on Dr Kerrie cazares to update him. Has not replied (as of 1499).
--- NOTE | 2025-09-21 15:54 | PC.NURSE ---
Day shift: Dr Roche called and said blood in stool normal finding.
[2025-09-21 21:04] VITALS: BP 145/68; PULSE 82; RESP 18; TEMP 36.6; O2SAT 99
[2025-09-21] MEDS: ATORVASTATIN 20 MG TABLET 40 MG PO (21:24)
[2025-09-22 06:04] LABS: Blood Urea Nitrogen 6 mg/dL (7-17); Calcium 8.2 mg/dL (8.4-10.2); Carbon Dioxide 28 mmol/L (22-32); Chloride 101 mmol/L (98-107); Estimated Glomerular Filt Rate > 60 mL/min (>60); Glucose 121 mg/dL (70-99); HEMOLYSIS < 15 (0-50); Potassium 3.1 mmol/L (3.4-5.1); Sodium 133 mmol/L (137-145)
[2025-09-22 07:38] VITALS: BP 153/60; PULSE 72; RESP 18; TEMP 36.2; O2SAT 97
[2025-09-22] MEDS: PANTOPRAZOLE DR 40 MG TABLET PO (07:40)
[2025-09-22] MEDS: SPIRONOLACTONE 25 MG TABLET PO (09:43)
[2025-09-22] MEDS: ENOXAPARIN 40 MG/0.4 ML SYRINGE SUBCUT (09:43)
[2025-09-22 10:43] LABS: Add Manual Diff / Slide Review NO; Hematocrit 35.7 % (36-46); Hemoglobin 12.5 g/dL (12.0-16.0); Lymphocytes Absolute Auto 1000 /uL (1100-4500); Mean Corpuscular HGB Conc 35.0 % (30-36); Mean Corpuscular Hemoglobin 32.4 PG (26-34); Mean Corpuscular Volume 92.6 fL (80-100); Platelet Count 90 X10^3/uL (150-400)
[2025-09-22] MEDS: POTASSIUM CHLORIDE 20 MEQ TAB 40 MEQ PO (12:22)
--- NOTE | 2025-09-22 14:07 | P.PN_ITS ---
Subjective Subjective Date Patient Seen: 09/22/25 Time Patient Seen: 14:07 Interval history: Betsy is doing well today. Has passed flatus and is tolerating regular diet. Exam Vital Signs (past 8 hours): - 09/22/25 07:38 Temperature 97.1 F L Pulse Rate 72 Respiratory Rate 18 Blood Pressure 153/60 H Pulse Oximetry 97 Oxygen Flow Rate 0 Oxygen Delivery Method Nasal Cannula Oxygen Flow Rate 0 Narrative Exam Narrative: Abdomen soft, nontender Incisions look good Objective Labs 09/22/25 06:00 09/22/25 05:04 Labs: Laboratory Results - last 24 hr 09/22/25 09/22/25 05:04 06:00 WBC 7.5 RBC 3.86 L Hgb 12.5 Hct 35.7 L MCV 92.6 MCH 32.4 MCHC 35.0 RDW 13.3 Plt Count 90 L Neut % (Auto) 77.2 H Lymph % (Auto) 13.9 L [place] % (Auto) 7.7 Eos % (Auto) 0.6 L Baso % (Auto) 0.6 Neut # (Auto) 5800 Lymph # (Auto) 1000 L [place] # (Auto) 600 Eos # (Auto) 0 Baso # (Auto) 0 Sodium 133 L Potassium 3.1 L Chloride 101 Carbon Dioxide 28 BUN 6 L Creatinine 0.52 Estimated GFR > 60 BUN/Creatinine Ratio 11.5 Glucose 121 H Calcium 8.2 L PFSH Medical History Microalbuminuria Incomplete emptying of bladder Self-catheterizes urinary bladder Mixed irritable bowel syndrome History of urinary tract infection Chronic pseudo-obstruction of colon Urinary retention Meningioma SBO (small bowel obstruction) Uncontrolled diabetes mellitus Venous telangiectasia of lower extremity House dust mite allergy Pollen allergy Edema of both lower legs Thumb laceration Thumb fracture Contusion of left thumb Green nails Obstructive sleep apnea hypopnea, moderate Acid reflux Diarrhea Esophagitis Syncope Shortness of breath on exertion Palpitations Dizziness Hyponatremia Hypomagnesemia Snoring Abnormal mammogram of right breast (~04/2020) Oral thrush Overweight (BMI 25.0-29.9) Angular cheilitis Onychomycosis Vulvitis Lichen sclerosus of female genitalia Vision disorder Mumps (~1949) Measles (~1949) Chicken pox (~1949) Hearing loss Frequent UTI Hypertension Hyperlipidemia Chronic vaginitis (04/01/16) Osteoarthritis of left hip (04/01/16) Edema of foot (11/01/15) Surgical History Hx of inguinal hernia repair History of left hip replacement Anesthesia Status post hernia repair (~1965) Family History Brother Age: 87 Detached retina Father Cancer Loud snoring Mother Hypertension Stroke Sister Diabetes mellitus Social History marital status: number of children: 1 household members: spouse lives independently: Yes occupational status: previously employed Smoking Status: Unknown if ever smoked alcohol intake: never substance use type: does not use eating out: rarely or never Type(s) of exercise: walking and bicycling frequency: 1-2 times per week duration: 45-60 minutes/day Assessment & Plan Assessment and plan (1) Sigmoid volvulus: Status: Acute Plan Doing well We talked about discharge potentially tomorrow. She states she is no manning to go home. Time-Based Coding :: [TOTAL MINUTES] spent with patient and on the chart (including review of chart, obtaining history, exam, reviewing outside data, placing orders, documenting exam and treatment plan, and counseling patient) on [DATE]. Quality VTE Deep Vein Thrombosis/Pulmonary Embolism Present on Admission: No IH PROFEE Green Pipefitter Document charge(s): No
[2025-09-22] MEDS: ATORVASTATIN 20 MG TABLET 40 MG PO (19:36)
[2025-09-23 02:38] VITALS: BP 145/80; BP 174/89; PULSE 78; PULSE 80; RESP 14; RESP 16; TEMP 35.5; TEMP 36.6; O2SAT 97; O2SAT 98
--- NOTE | 2025-09-23 06:31 | PC.NURSE ---
pt asleep. protonix po held at 06:00 am for day shift to followup with. pt allowed to rest.
[2025-09-23 07:07] LABS: Blood Urea Nitrogen 10 mg/dL (7-17); Calcium 8.1 mg/dL (8.4-10.2); Carbon Dioxide 29 mmol/L (22-32); Chloride 100 mmol/L (98-107); Estimated Glomerular Filt Rate > 60 mL/min (>60); Glucose 110 mg/dL (70-99); HEMOLYSIS < 15 (0-50); Potassium 3.5 mmol/L (3.4-5.1); Sodium 132 mmol/L (137-145)
[2025-09-23] MEDS: PANTOPRAZOLE DR 40 MG TABLET PO ×2 (07:38→07:42)
[2025-09-23 08:00] VITALS: BP 167/90; PULSE 117; RESP 17; TEMP 37.1; O2SAT 97
[2025-09-23] MEDS: SPIRONOLACTONE 25 MG TABLET PO (10:17)
[2025-09-23] MEDS: ENOXAPARIN 40 MG/0.4 ML SYRINGE SUBCUT (10:17)
[2025-09-23] MEDS: SODIUM CHLORIDE 0.9% FLUSH 10 ML IV (10:23)
--- NOTE | 2025-09-23 15:56 | CM.DPC ---
DCP Cont: Per Surgeon, pt with some flatus and tolerating diet and ambulating with FWW and anticipate discharge tomorrow Friday. SW observed pt walking in room with FWW and aware of likely d/c home tomorrow, spouse has been bedside. Nuria Vargas MSW
[2025-09-23 16:20] VITALS: BP 165/73; PULSE 88; RESP 18; TEMP 37.1
--- NOTE | 2025-09-23 16:26 | P.PN_ITS ---
Subjective Subjective Date Patient Seen: 09/23/25 Time Patient Seen: 16:27 Interval history: Betsy has been nauseated this afternoon. She has not been eating much. She has had more liquid stool. Exam Vital Signs (past 8 hours): Oxygen Delivery Method Nasal Cannula Oxygen Flow Rate 0 Narrative Exam Narrative: Abdomen is soft, moderately distended, nontender Objective Labs 09/22/25 06:00 09/23/25 05:41 Labs: Laboratory Results - last 24 hr 09/23/25 05:41 Sodium 132 L Potassium 3.5 Chloride 100 Carbon Dioxide 29 BUN 10 Creatinine 0.52 Estimated GFR > 60 BUN/Creatinine Ratio 19.2 Glucose 110 H Calcium 8.1 L PFSH Medical History Microalbuminuria Incomplete emptying of bladder Self-catheterizes urinary bladder Mixed irritable bowel syndrome History of urinary tract infection Chronic pseudo-obstruction of colon Urinary retention Meningioma SBO (small bowel obstruction) Uncontrolled diabetes mellitus Venous telangiectasia of lower extremity House dust mite allergy Pollen allergy Edema of both lower legs Thumb laceration Thumb fracture Contusion of left thumb Green nails Obstructive sleep apnea hypopnea, moderate Acid reflux Diarrhea Esophagitis Syncope Shortness of breath on exertion Palpitations Dizziness Hyponatremia Hypomagnesemia Snoring Abnormal mammogram of right breast (~04/2020) Oral thrush Overweight (BMI 25.0-29.9) Angular cheilitis Onychomycosis Vulvitis Lichen sclerosus of female genitalia Vision disorder Mumps (~1950) Measles (~1950) Chicken pox (~1949) Hearing loss Frequent UTI Hypertension Hyperlipidemia Chronic vaginitis (04/01/16) Osteoarthritis of left hip (04/01/16) Edema of foot (11/01/15) Surgical History Hx of inguinal hernia repair History of left hip replacement Anesthesia Status post hernia repair (~1964) Family History Brother Age: 87 Detached retina Father Cancer Loud snoring Mother Hypertension Stroke Sister Diabetes mellitus Social History marital status: number of children: 1 household members: spouse lives independently: Yes occupational status: previously employed Smoking Status: Unknown if ever smoked alcohol intake: never substance use type: does not use eating out: rarely or never Type(s) of exercise: walking and bicycling frequency: 1-2 times per week duration: 45-60 minutes/day Assessment & Plan Assessment and plan (1) Sigmoid volvulus: Status: Acute Plan We will pull back to a clear liquid diet since she is nauseated today Time-Based Coding :: [TOTAL MINUTES] spent with patient and on the chart (including review of chart, obtaining history, exam, reviewing outside data, placing orders, documenting exam and treatment plan, and counseling patient) on [DATE]. 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
[2025-09-23] MEDS: IPRATROPIUM 0.06% NASAL 15 ML 2 SPRAY NASAL (17:30)
--- NOTE | 2025-09-23 17:57 | PC.NURSE ---
Pt up in chair for meals, Med as needed for discomfort w/good relief. SBA to BR Call light w/in reach pt calls appropriately for needs. Continue w/plan of care.
[2025-09-23 18:29] LABS: Add Manual Diff / Slide Review NO; Hematocrit 38.4 % (36-46); Hemoglobin 13.3 g/dL (12.0-16.0); Lymphocytes Absolute Auto 800 /uL (1100-4500); Mean Corpuscular HGB Conc 34.5 % (30-36); Mean Corpuscular Hemoglobin 32.0 PG (26-34); Mean Corpuscular Volume 92.8 fL (80-100); Platelet Count 133 X10^3/uL (150-400)
[2025-09-23 19:00] VITALS: BP 155/78; PULSE 84; RESP 17; TEMP 36.3; O2SAT 95
[2025-09-23] MEDS: ATORVASTATIN 20 MG TABLET 40 MG PO (20:17)
[2025-09-24] MEDS: IBUPROFEN 600 MG TABLET PO (03:51)
[2025-09-24] MEDS: PANTOPRAZOLE DR 40 MG TABLET PO (03:52)
[2025-09-24 05:16] LABS: Add Manual Diff / Slide Review NO; Hematocrit 37.2 % (36-46); Hemoglobin 12.9 g/dL (12.0-16.0); Lymphocytes Absolute Auto 500 /uL (1100-4500); Mean Corpuscular HGB Conc 34.8 % (30-36); Mean Corpuscular Hemoglobin 32.2 PG (26-34); Mean Corpuscular Volume 92.4 fL (80-100); Platelet Count 135 X10^3/uL (150-400)
[2025-09-24 05:33] LABS: Blood Urea Nitrogen 9 mg/dL (7-17); Calcium 8.2 mg/dL (8.4-10.2); Carbon Dioxide 27 mmol/L (22-32); Chloride 98 mmol/L (98-107); Estimated Glomerular Filt Rate > 60 mL/min (>60); Glucose 128 mg/dL (70-99); HEMOLYSIS < 15 (0-50); Potassium 3.2 mmol/L (3.4-5.1); Sodium 131 mmol/L (137-145)
[2025-09-24 07:00] VITALS: BP 147/87; PULSE 60; RESP 18; TEMP 36.2; O2SAT 98
[2025-09-24 07:46] VITALS: BP 112/55; PULSE 60; RESP 18; TEMP 36.5; O2SAT 99
[2025-09-24] MEDS: SODIUM CHLORIDE 0.9% FLUSH 10 ML IV ×2 (09:00→20:20)
[2025-09-24] MEDS: SPIRONOLACTONE 25 MG TABLET PO (09:16)
[2025-09-24] MEDS: ENOXAPARIN 40 MG/0.4 ML SYRINGE SUBCUT (09:16)
--- NOTE | 2025-09-24 11:16 | PM.PN.IH.1 ---
Subjective Subjective Date Patient Seen: 09/24/25 Time Patient Seen: 11:16 Interval history: 84-YEAR-OLD FEMALE STATUS POST SIGMOID COLECTOMY SECONDARY TO SIGMOID VOLVULUS. PATIENT IS NOW POSTOPERATIVE DAY 3. SHE WAS UNABLE TO TOLERATE A REGULAR DIET YESTERDAY. SHE NOTES SHE ATE CHOWDER AND IT MADE HER VERY SICK. SHE WAS SUBSEQUENTLY PLACED ON A CLEAR LIQUID DIET. SHE IS NOW FEELING ?MUCH BETTER?. SHE REPORTS 3 SMALL BOWEL MOVEMENTS YESTERDAY. SHE HAS PASSED MINIMAL FLATUS. SHE IS ABLE TO AMBULATE TO THE BATHROOM WITHOUT DIFFICULTY. SHE HAS REMAINED AFEBRILE. SHE REPORTS NO NAUSEA AT THIS TIME. HER IS AT THE BEDSIDE. Exam Vital Signs (past 8 hours): - 09/24/25 07:00 09/24/25 07:46 Temperature 97.2 F L 97.7 F Pulse Rate 60 60 Respiratory Rate 18 18 Blood Pressure 147/87 H 112/55 L Pulse Oximetry 98 99 Oxygen Delivery Method Nasal Cannula Oxygen Flow Rate 0 Narrative Exam Narrative: AVSS Alert and oriented x4. Regular rate and rhythm without murmur. Respirations symmetrical and clear to auscultation bilaterally; no wheezes rales or rhonchi noted. Abdomen nondistended, with only incisional tenderness, and excellent bowel sounds in all 4 quadrants. Wounds are clean dry and intact with a small amount of surrounding ecchymosis Moves all extremities x4 Objective Labs 09/24/25 04:54 09/24/25 04:54 Labs: Laboratory Results - last 24 hr 09/23/25 09/24/25 18:08 04:54 WBC 7.9 9.0 RBC 4.14 4.02 Hgb 13.3 12.9 Hct 38.4 37.2 MCV 92.8 92.4 MCH 32.0 32.2 MCHC 34.5 34.8 RDW 13.4 13.5 Plt Count 133 L 135 L Neut % (Auto) 79.2 H 87.2 H Lymph % (Auto) 9.6 L 5.9 L Pershing % (Auto) 10.2 6.6 Eos % (Auto) 0.9 L 0.2 L Baso % (Auto) 0.1 0.1 Neut # (Auto) 6300 7800 H Lymph # (Auto) 800 L 500 L Pershing # (Auto) 800 600 Eos # (Auto) 100 0 Baso # (Auto) 0 0 Sodium 131 L Potassium 3.2 L Chloride 98 Carbon Dioxide 27 BUN 9 Creatinine 0.49 L Estimated GFR > 60 BUN/Creatinine Ratio 18.4 Glucose 128 H Calcium 8.2 L PFSH Medical History Microalbuminuria Incomplete emptying of bladder Self-catheterizes urinary bladder Mixed irritable bowel syndrome History of urinary tract infection Chronic pseudo-obstruction of colon Urinary retention Meningioma SBO (small bowel obstruction) Uncontrolled diabetes mellitus Venous telangiectasia of lower extremity House dust mite allergy Pollen allergy Edema of both lower legs Thumb laceration Thumb fracture Contusion of left thumb Green nails Obstructive sleep apnea hypopnea, moderate Acid reflux Diarrhea Esophagitis Syncope Shortness of breath on exertion Palpitations Dizziness Hyponatremia Hypomagnesemia Snoring Abnormal mammogram of right breast (~04/2020) Oral thrush Overweight (BMI 25.0-29.9) Angular cheilitis Onychomycosis Vulvitis Lichen sclerosus of female genitalia Vision disorder Mumps (~1949) Measles (~1949) Chicken pox (~1949) Hearing loss Frequent UTI Hypertension Hyperlipidemia Chronic vaginitis (04/01/16) Osteoarthritis of left hip (04/01/16) Edema of foot (11/01/15) Surgical History Hx of inguinal hernia repair History of left hip replacement Anesthesia Status post hernia repair (~1964) Family History Brother Age: 87 Detached retina Father Cancer Loud snoring Mother Hypertension Stroke Sister Diabetes mellitus Social History marital status: number of children: 1 household members: spouse lives independently: Yes occupational status: previously employed Smoking Status: Unknown if ever smoked alcohol intake: never substance use type: does not use eating out: rarely or never Type(s) of exercise: walking and bicycling frequency: 1-2 times per week duration: 45-60 minutes/day Assessment & Plan Assessment & Plan narrative: 84-year-old female status post sigmoid colectomy secondary to persistent sigmoid volvulus -I have ordered an incentive spirometer for use; I explained to the patient that this would be necessary given that her respirations, particularly while lying in bed, are somewhat shallow. -a PT consult will be ordered to assist the patient with ambulation in the hallway. The patient does not feel she could do this without assistance. -I explained to the patient that the SCDs would not be required as long as she is able to ambulate frequently. She voiced understanding. -we will advance her diet to full liquid. We will include ensure vanilla with each tray per the patient's request. -if the patient continues to do well, we will advance her to a soft regular diet in the morning. If she is tolerant of that, then we will consider discharge in the morning. The patient and her voiced understanding. Time-Based Coding :: [TOTAL MINUTES] spent with patient and on the chart (including review of chart, obtaining history, exam, reviewing outside data, placing orders, documenting exam and treatment plan, and counseling patient) on [DATE]. 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
[2025-09-24] MEDS: POTASSIUM CHLORIDE 20 MEQ TAB 40 MEQ PO ×2 (12:18→20:20)
--- NOTE | 2025-09-24 13:56 | CM.DPNOTE ---
DCP note CITY CLERK reviewed EMR per chart, pt did not tolerate diet yesterday. feels improved today. full liquid diet today and then potential general diet tomorrow morning for breakfast and if can tolerate then will dc. PT eval order placed. per previous notes, pt ambulating well indep. will f/u for PT eval recs in case additional safety recs for home. P: anticipate dc tomorrow if can tolerate a general diet. will continue to follow as needed for DCP Coordination, anticipate home with spouse no DCP needs unless PT indicates otherwise [employer]
--- NOTE | 2025-09-24 14:55 | PT.IIE ---
Current Diagnoses Volvulus (09/17/25) Surgery Performed Operation Date: 09/17/25 14:45 Actual Procedures p Colonoscopy with detorsion of sigmoid volvulus and placement of rectal tube(Not Applicable) - Harry Roche MD Operation Date: 09/20/25 12:00 Actual Procedures p Robot Sigmoid colon resection - Harry Roche MD Surgical History (Last Reviewed 08/25/25 @ 09:48 by Jsoe Lawrence DO) Anesthesia History of left hip replacement Hx of inguinal hernia repair Status post hernia repair (~1964) Medical History (Last Reviewed 08/25/25 @ 09:48 by Jsoe Lawrence DO) Abnormal mammogram of right breast (~04/2020) Acid reflux Angular cheilitis Chicken pox (~1949) Chronic pseudo-obstruction of colon Chronic vaginitis (04/01/16) Contusion of left thumb Diarrhea Dizziness Edema of both lower legs Edema of foot (11/01/15) Esophagitis Frequent UTI Green nails Hearing loss History of urinary tract infection House dust mite allergy Hyperlipidemia Hypertension Hypomagnesemia Hyponatremia Incomplete emptying of bladder Lichen sclerosus of female genitalia Measles (~1949) Meningioma Microalbuminuria Mixed irritable bowel syndrome Mumps (~1949) Obstructive sleep apnea hypopnea, moderate Onychomycosis Oral thrush Osteoarthritis of left hip (04/01/16) Overweight (BMI 25.0-29.9) Palpitations Pollen allergy SBO (small bowel obstruction) Self-catheterizes urinary bladder Shortness of breath on exertion Snoring Syncope Thumb fracture Thumb laceration Uncontrolled diabetes mellitus Urinary retention Venous telangiectasia of lower extremity Vision disorder Vulvitis Physical Therapy Inpatient Evaluation/Re-Eval M1 PT/OT-IP Prior Functional Status Start: 09/24/25 16:10 Freq: NEEDED Status: Active Protocol: Document 09/24/25 14:55 AB (Rec: 09/24/25 16:25 AB Desktop) Medical Review Prior Functional Status Medical History Yes Reviewed Communication able to make needs known Mobility and Gait pt stated that she was independent with all mobilities and ambulation without AD but uses a FWW when she has to get up and use the toilet at night Social History Household Members spouse Living Arrangements Apartment/Condo Number of Floors ( Two Floors Floors) Number of Stairs To no steps to enter the house and pt can stay on main Enter/Railing? level of the house pt usually goes to 2nd level bedroom with 15 steps B rails Home Environment High Toilet,Walk in Shower Home Equipment Front Wheel Walker,Shower Seat without Backrest,Hand Held Shower,Grab Bars In Shower M2 PT-IP Current Condition Start: 09/24/25 16:10 Freq: NEEDED Status: Active Protocol: Document 09/24/25 14:55 AB (Rec: 09/24/25 16:25 AB Desktop) Physical Therapy Current Condition Current Condition Evaluation Date 09/24/25 Treatment Diagnosis sigmoid volvulus s/p colectomy; difficulty in walking Onset Date 09/17/25 M3 PT-IP Subjective Start: 09/24/25 16:10 Freq: NEEDED Status: Active Protocol: Document 09/24/25 14:55 AB (Rec: 09/24/25 16:25 AB Desktop) Subjective Physical Therapy Visit Type Type Initial Evaluation Visit Start Time 14:55 Visit Stop Time 15:35 Number of SPEECH LANG PATH THERAPIST Visits 0 Physical Therapy Visit Comments Patient Comments agreeable to do PT Therapy Pain Assessment Pain Present Pain Present Denied Pain M4 PT-IP Mobility and Gait Start: 09/24/25 16:10 Freq: NEEDED Status: Active Protocol: Document 09/24/25 14:55 AB (Rec: 09/24/25 16:25 AB Desktop) PT-Bed Mobility Assessment Rolling Type of Rolling Log Rolling Level of Assist Standby Assistance Supine to Sit Supine to Sit Standby Assistance PT-Transfer Assessment Sit to and From Stand Sit to and from Contact Guard Assistance,1 Person Assistance,Use of Stand Upper Extremities Equipment Transfer Assistive Gait Belt,Front Wheeled Walker Device Orthotic/Prosthetic No Devices or Brace: Transfers Transfer Destination Chair Transfer Technique ambulated Transfer Ability Level of Assist Standby Assistance,1 Person Assistance,Use of Upper Extremities Comments Mobility Comments pt in bed and spouse in room. pt agreed to do PT. obtained PLOF and home set up. BP: 143/66. informed pt regarding abdominal precautions. completed supine to sit log roll supine to sit SBA. per EMR, pt with L 5th metatarsal fx ~ 4wks ago and needs to use supportive shoes when up and walking. confirmed with pt and agreed. Assisted pt with socks/shoe management. pt with c/o nausea. nurse aware. BP in sittin/78. completed sit to stand CGA and ambulate din room using FWW ~ 30 ft SBA to CGA. pt presents with antalgic gait with NBOS with RLE tends to cross midline. pt sat on the chair. educated pt on standing balance and increasing CRISTAL during ambulation. Assessed ambulation without AD and completed ~ 30 ft min A and cues. presents with very guarded unsteady gait. pt sat on chair. positioned pt on the chair. informed pt and spouse regarding outpt PT and agreed. call light and table placed within reach. Gait Assessment Gait Gait Assistance Standby Assistance,Contact Guard Assist,Minimum Required: Assistance,1 Person Assist Distance (Feet) 30 Able to Maintain Yes Weight Bearing Status During Gait Assistive Devices Assistive Device None,Gait Belt,Front Wheeled Walker Orthotic/Prosthetic No Devices or Brace: Gait Deviations General Gait Pattern Antalgic,Decreased Stride Length,Decreased Feet Clearance,Narrow Based Gait Factors Limiting Gait Function Factors Limiting Decreased Activity Tolerance,Decreased Strength,Poor Gait Function Balance,Poor Safety Awareness PT-Balance Assessment Sitting Balance and Reactions Static Sitting Good Balance Ability Dynamic Sitting Good Balance Ability Standing Balance and Reactions Static Standing Good Balance Ability Dynamic Standing Fair Balance Ability Device Used FWW M5 PT-IP Objective Assessments Start: 09/24/25 16:10 Freq: NEEDED Status: Active Protocol: Document 09/24/25 14:55 AB (Rec: 09/24/25 16:25 AB Desktop) Orientation Orientation/Cognition Level of Alertness Alert Orientation Name,Place,Situation Language Function Hard of Hearing Ability Safety Awareness Decreased Safety Awareness Memory Description No Deficits Noted Gross Range of Motion Lower Extremity ROM Assessment Within Functional Limits Impairments R genu valgum Strength Lower Extremity Strength Assessment Within Functional Limits Muscle Tone Muscle Tone WNL Yes M6 PT-IP Treatment Start: 09/24/25 16:10 Freq: NEEDED Status: Active Protocol: Document 09/24/25 14:55 AB (Rec: 09/24/25 16:25 AB Desktop) Physical Therapy Treatment Education Education Provided Precautions,Post-Op Packet,Safety M7 PT-IP Assessment and Plan Start: 09/24/25 16:10 Freq: NEEDED Status: Active Protocol: Document 09/24/25 14:55 AB (Rec: 09/24/25 16:25 AB Desktop) PT Summary Assessment and Plan Potential Rehabilitation Fair Potential Status of Condition Evolving at Evaluation Summary Impairments Pain,ROM,Strength,Balance,Coordination,Sensation,Tone, Cognition,Bed Mobility,Transfers,Gait,Activity Tolerance Assessment Summary pt is an 84 y/o F who is admitted for sigmoid volvulus and underwent colectomy. pt requiring CGA for ambulation using FWW and min A without AD. Recommending use of FWW. pt to continue PT while here in the hospital for overall strengthening, balance training and gait training without AD. pt will also benefit from outpt PT after d/c to home. pt lives with spouse who can assist pt if needed. will continue to assess progress. Goals Bed Mobility Goal Independent Transfer Goal Independent Gait Goal Independent Gait Distance 150 Other Goals up/down steps B rails 15 ft SBA Days to Meet Goals 10 Frequency of Treatment Frequency Of Once a Day Treatment Treatment Plan Physical Therapy Bed Mobility Training,Transfer Training,Gait Training, Treatment Plan Therapeutic Exercise,Balance Retraining,Post Op Education,Discharge Planning,Hot or Cold Pack, Neuromuscular Re-ed,Coordination Retraining,Manual Therapy Precautions Abdominal Surgery Log Roll,Lifting Restrictions,Gait Belt above Precautions Incisional Area Recommendations To Nursing Amount of Assist 1 Person Assist Needed Discharge Recommendations PT Discharge Home with Assistance,Outpatient PT Recommendations Transportation Needs Private Vehicle at Discharge - PT assist 1
[2025-09-24] MEDS: CALCIUM CARBONATE 500 MG TAB PO (15:29)
[2025-09-24] MEDS: ONDANSETRON 4 MG ODT SL (15:30)
[2025-09-24 16:00] VITALS: BP 159/73; PULSE 87; RESP 17; TEMP 36.4; O2SAT 97
[2025-09-24] MEDS: IPRATROPIUM 0.06% NASAL 15 ML 2 SPRAY NASAL (16:31)
--- NOTE | 2025-09-24 17:12 | PC.NURSE ---
Pt Sitting up in chair most day. Started to full liquids; slight discomfort after cream soup. Med w/ zofran SL and TUMS w/ good relief. To have shoes on while up in room. Call light w/in reach, pt calls appropriately for needs Continue w/plan of care.
[2025-09-24] MEDS: ATORVASTATIN 20 MG TABLET 40 MG PO (20:19)
[2025-09-24 21:23] VITALS: BP 137/53; PULSE 88; RESP 17; TEMP 36.7; O2SAT 97
[2025-09-25 05:44] LABS: Blood Urea Nitrogen 12 mg/dL (7-17); Calcium 8.6 mg/dL (8.4-10.2); Carbon Dioxide 27 mmol/L (22-32); Chloride 99 mmol/L (98-107); Estimated Glomerular Filt Rate > 60 mL/min (>60); Glucose 126 mg/dL (70-99); HEMOLYSIS < 15 (0-50); Potassium 4.1 mmol/L (3.4-5.1); Sodium 131 mmol/L (137-145)
[2025-09-25] MEDS: ENOXAPARIN 40 MG/0.4 ML SYRINGE SUBCUT (08:24)
[2025-09-25] MEDS: IPRATROPIUM 0.06% NASAL 15 ML 2 SPRAY NASAL (08:24)
[2025-09-25] MEDS: SPIRONOLACTONE 25 MG TABLET PO (08:25)
[2025-09-25 09:00] VITALS: BP 145/61; PULSE 77; RESP 18; TEMP 36.2; O2SAT 98
--- NOTE | 2025-09-25 10:40 | PM.PN.IH.1 ---
Subjective Subjective Date Patient Seen: 09/25/25 Time Patient Seen: 10:42 Interval history: 84-year-old female status post sigmoid colectomy secondary to episodic sigmoid volvulus. Postoperative day 4. Patient reports having had a small bowel movement yesterday. She is passing flatus. She is tolerant of a full liquid diet, however, she notes this morning she had nausea again. She states she must lie down when she becomes nauseated in order to get it to resolve. Otherwise she is tolerant of the current diet. She voices concern regarding possible discharge home. She does not feel she would be able to handle in a regular diet at home. Her is at the bedside. She has remained afebrile, with stable vital signs and his ambulating and voiding without difficulty. Exam Vital Signs (past 8 hours): - 09/25/25 09:00 Temperature 97.1 F L Pulse Rate 77 Respiratory Rate 18 Blood Pressure 145/61 H Pulse Oximetry 98 Oxygen Delivery Method Nasal Cannula Oxygen Flow Rate 0 Narrative Exam Narrative: -AVSS -Alert and oriented x4 -Regular rate rhythm without murmur -respirations clear to auscultation bilaterally; chest wall excursions symmetrical; no wheezes, rales, or rhonchi -abdomen is soft, nondistended, nontender, with good bowel sounds. No peritoneal signs noted. -incisions clean dry and intact without erythema or drainage. -moves all extremities x4. Objective Labs 09/24/25 04:54 09/25/25 04:50 Labs: Laboratory Results - last 24 hr 09/25/25 04:50 Sodium 131 L Potassium 4.1 Chloride 99 Carbon Dioxide 27 BUN 12 Creatinine 0.51 L Estimated GFR > 60 BUN/Creatinine Ratio 23.5 H Glucose 126 H Calcium 8.6 PFSH Medical History Microalbuminuria Incomplete emptying of bladder Self-catheterizes urinary bladder Mixed irritable bowel syndrome History of urinary tract infection Chronic pseudo-obstruction of colon Urinary retention Meningioma SBO (small bowel obstruction) Uncontrolled diabetes mellitus Venous telangiectasia of lower extremity House dust mite allergy Pollen allergy Edema of both lower legs Thumb laceration Thumb fracture Contusion of left thumb Green nails Obstructive sleep apnea hypopnea, moderate Acid reflux Diarrhea Esophagitis Syncope Shortness of breath on exertion Palpitations Dizziness Hyponatremia Hypomagnesemia Snoring Abnormal mammogram of right breast (~04/2020) Oral thrush Overweight (BMI 25.0-29.9) Angular cheilitis Onychomycosis Vulvitis Lichen sclerosus of female genitalia Vision disorder Mumps (~1950) Measles (~1950) Chicken pox (~1949) Hearing loss Frequent UTI Hypertension Hyperlipidemia Chronic vaginitis (04/01/16) Osteoarthritis of left hip (04/01/16) Edema of foot (11/01/15) Surgical History Hx of inguinal hernia repair History of left hip replacement Anesthesia Status post hernia repair (~1964) Family History Brother Age: 87 Detached retina Father Cancer Loud snoring Mother Hypertension Stroke Sister Diabetes mellitus Social History marital status: number of children: 1 household members: spouse lives independently: Yes occupational status: previously employed Smoking Status: Unknown if ever smoked alcohol intake: never substance use type: does not use eating out: rarely or never Type(s) of exercise: walking and bicycling frequency: 1-2 times per week duration: 45-60 minutes/day Assessment & Plan Assessment & Plan narrative: 84-year-old female status post sigmoid colectomy secondary to persistent sigmoid volvulus -utilizing her incentive spirometer; I explained to the patient that this would be necessary given that her respirations, particularly while lying in bed, are somewhat shallow. -PT assisting patient with ambulation in the hallway. Patient encouraged to sit in chair and not lie in bed if possible -I explained to the patient that the SCDs would not be required as long as she is able to ambulate frequently. She voiced understanding. -we advanced her diet to full liquid. She notes she still has episodic nausea. Given her concerns regarding discharge home, we will continue with the current management today until the patient is certain she would be able to tolerate a diet at home. -if the patient continues to do well, we will advance her to a soft regular diet in the morning. If she is tolerant of that, then we will consider discharge in the morning. The patient and her voiced understanding. Time-Based Coding :: [TOTAL MINUTES] spent with patient and on the chart (including review of chart, obtaining history, exam, reviewing outside data, placing orders, documenting exam and treatment plan, and counseling patient) on [DATE]. 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
--- NOTE | 2025-09-25 10:52 | PC.NURSE ---
0815 pt alert and oriented, positional changes for BF. pt denies pain or N/v, bowel tones active, belly distended with lap sites intact. took soft reg diet jose well. Dr. Ruiz here around 1030 and pt expressed concerns about going home so plan for possible discharge [place].
--- NOTE | 2025-09-25 11:40 | PT.IPTN ---
Current Diagnoses Volvulus (09/17/25) Surgery Performed Operation Date: 09/17/25 14:45 Actual Procedures p Colonoscopy with detorsion of sigmoid volvulus and placement of rectal tube(Not Applicable) - Harry Roche MD Operation Date: 09/20/25 12:00 Actual Procedures p Robot Sigmoid colon resection - Harry Roche MD Physical Therapy Treatment Note M2 PT-IP Current Condition Start: 09/24/25 16:10 Freq: NEEDED Status: Active Protocol: Document 09/24/25 14:55 AB (Rec: 09/24/25 16:25 AB Desktop) Physical Therapy Current Condition Current Condition Evaluation Date 09/24/25 Treatment Diagnosis sigmoid volvulus s/p colectomy; difficulty in walking Onset Date 09/17/25 M3 PT-IP Subjective Start: 09/24/25 16:10 Freq: NEEDED Status: Active Protocol: Document 09/25/25 11:35 [facility] (Rec: 09/25/25 12:37 [facility] [id number]) Subjective Physical Therapy Visit Type Type Treatment Note Visit Start Time 11:09 Visit Stop Time 11:35 Number of INSURANCE OFFICE MANAGER Visits 0 Physical Therapy Visit Comments Patient Comments Pt notes she wants to walk but has to use restroom first M4 PT-IP Mobility and Gait Start: 09/24/25 16:10 Freq: NEEDED Status: Active Protocol: Document 09/25/25 11:35 [facility] (Rec: 09/25/25 12:37 [facility] [id number]) PT-Bed Mobility Assessment Rolling Type of Rolling Log Rolling Level of Assist Standby Assistance Supine to Sit Supine to Sit Standby Assistance Scooting Scooting to Edge of Independent Bed PT-Transfer Assessment Sit to and From Stand Sit to and from Standby Assistance,1 Person Assistance,Use of Upper Stand Extremities Equipment Transfer Assistive Gait Belt,Front Wheeled Walker Device Orthotic/Prosthetic No Devices or Brace: Transfers Transfer Destination Chair Transfer Technique ambulated Transfer Ability Level of Assist Standby Assistance,1 Person Assistance,Use of Upper Extremities Comments Mobility Comments BP 141/70 and O296% sitting EOB. SBA for bed mobility and did well with scoot EOB indep. PT assisted pt w/ shoes as pt noted she wouldn't be able to on her own. Sit ot stand w/cues for hand placement SBA then amb into bathroom 10ft SBA w/FWW and able ot sit w/cues and doff brief SBA. Able to toilet indep and wipe indep and stood SBA to FWW and donned brief w/SBA. Amb with FWW 80ft more SBA with cues for posture (L foot turned in some). Sat in chair upon return and adjusted for comfort and left with call light in reach. Gait Assessment Gait Gait Assistance Standby Assistance,1 Person Assist Required: Distance (Feet) 100 Assistive Devices Assistive Device Gait Belt,Front Wheeled Walker Orthotic/Prosthetic No Devices or Brace: Gait Deviations General Gait Pattern Antalgic,Decreased Stride Length,Decreased Feet Clearance,Narrow Based Gait Factors Limiting Gait Function Factors Limiting Decreased Activity Tolerance,Decreased Strength,Poor Gait Function Balance,Poor Safety Awareness M5 PT-IP Objective Assessments Start: 09/24/25 16:10 Freq: NEEDED Status: Active Protocol: Document 09/24/25 14:55 AB (Rec: 09/24/25 16:25 AB Desktop) Orientation Orientation/Cognition Level of Alertness Alert Orientation Name,Place,Situation Language Function Hard of Hearing Ability Safety Awareness Decreased Safety Awareness Memory Description No Deficits Noted Gross Range of Motion Lower Extremity ROM Assessment Within Functional Limits Impairments R genu valgum Strength Lower Extremity Strength Assessment Within Functional Limits Muscle Tone Muscle Tone WNL Yes M6 PT-IP Treatment Start: 09/24/25 16:10 Freq: NEEDED Status: Active Protocol: Document 09/25/25 11:35 [facility] (Rec: 09/25/25 12:37 [facility] [id number]) Physical Therapy Treatment Education Education Provided Safety M7 PT-IP Assessment and Plan Start: 09/24/25 16:10 Freq: NEEDED Status: Active Protocol: Document 09/25/25 11:35 [facility] (Rec: 09/25/25 12:37 [facility] [id number]) PT Summary Assessment and Plan Summary Impairments Pain,ROM,Strength,Balance,Coordination,Sensation,Tone, Cognition,Bed Mobility,Transfers,Gait,Activity Tolerance Assessment Summary Pt demonstrated improved activity tolerance today with much improved gait tolerance and further distance. SBA throughout session and required assist for donning shoes only. She will benefit from outpatient PT after DC home. Goals Bed Mobility Goal Independent Transfer Goal Independent Gait Goal Independent Gait Distance 150 Other Goals up/down steps B rails 15 ft SBA Days to Meet Goals 10 Frequency of Treatment Frequency Of Once a Day Treatment Treatment Plan Physical Therapy Bed Mobility Training,Transfer Training,Gait Training, Treatment Plan Therapeutic Exercise,Balance Retraining,Post Op Education,Discharge Planning,Hot or Cold Pack, Neuromuscular Re-ed,Coordination Retraining,Manual Therapy Precautions Abdominal Surgery Log Roll,Lifting Restrictions,Gait Belt above Precautions Incisional Area Recommendations To Nursing Amount of Assist 1 Person Assist Needed Discharge Recommendations PT Discharge Home with Assistance,Outpatient PT Recommendations Transportation Needs Private Vehicle at Discharge - PT assist 1
--- NOTE | 2025-09-25 13:30 | CM.DPC ---
DCP Cont: Per Surgeon, pt making progress and could likely d/c home today vs tomorrow but per RN pt with fairly distended abdomen still and pt does not feel medically stable to d/c yet today. Per PT, pt able to ambulate the mena with FWW and recommending home with spouse and outpt PT. SUSAN Toro
--- NOTE | 2025-09-25 13:50 | PC.NURSE ---
pt back to bed from chair, 1 person sba with walker, jose well. refused lunch, visiting.
[2025-09-25 19:00] VITALS: BP 134/76; PULSE 84; RESP 18; TEMP 36.4; O2SAT 96
[2025-09-25] MEDS: ATORVASTATIN 20 MG TABLET 40 MG PO (20:10)
[2025-09-25] MEDS: ONDANSETRON 4 MG/2 ML INJ IV (20:11)
[2025-09-26] MEDS: CALCIUM CARBONATE 500 MG TAB PO (02:27)
[2025-09-26] MEDS: PANTOPRAZOLE DR 40 MG TABLET PO (03:37)
[2025-09-26] MEDS: ONDANSETRON 4 MG ODT SL (03:37)
[2025-09-26 07:00] VITALS: BP 152/92; PULSE 81; RESP 17; TEMP 36.3; O2SAT 97
[2025-09-26] MEDS: SPIRONOLACTONE 25 MG TABLET PO (08:26)
[2025-09-26] MEDS: ENOXAPARIN 40 MG/0.4 ML SYRINGE SUBCUT (08:27)
[2025-09-26] MEDS: SODIUM CHLORIDE 0.9% FLUSH 10 ML IV (08:28)
--- NOTE | 2025-09-26 10:11 | P.DS_ITS ---
History of Present Illness History of Present Illness Date Patient Seen: 09/26/25 Time Patient Seen: 10:11 Date of Onset of Symptoms: 09/22/25 Chief complaint: Sent by Radiologist due to abd bowel issue Narrative: 84-year-old female admitted following diagnosis sigmoid volvulus. Patient was taken to the operating room the following morning for a sigmoid colectomy. Discharge Providers Provider Date of admission: 09/17/25 11:15 Discharge Date: 09/26/25 Primary care physician: Anthony Flores MD Consults: 09/18/25 11:51 Consult to Pharmacy Routine Comment: if new meds at discharge 09/19/25 07:30 Consult to Pharmacy Routine Comment: if new meds at discharge 09/20/25 19:43 Consult to Pharmacy Routine Comment: fall risk 09/24/25 11:17 Consult to Physical Therapy Evaluate & Treat Comment: Physician Instructions: Evaluate and Treat Discharge provider: Kelly Ruiz MD Summary Hospital Course Discharge Diagnosis: Sigmoid volvulus; status post sigmoid colectomy Hospital Course: 84-year-old female diagnosed with sigmoid volvulus. She was taken to the operating room on September 21 for a laparoscopic sigmoid colectomy per Dr. Roche. She tolerated the procedure well. The following day she was ambulating voiding, however, was intolerant of a diet. On Friday her diet was slowly advanced. Yesterday she was able to tolerate full liquids, however, she was concerned that episodically she would still have nausea. She is ambulating and voiding without difficulty. PT was consulted for assistance. Her white count has remained stable. She is afebrile with stable vital signs. She is now tolerant of diet and deemed appropriate for discharge home in stable condition. Her lab values have remained stable. Status at Discharge Cognitive/behavioral status at discharge: oriented Functional status at discharge: independent ambulation Overall status at discharge: patient is progressing back to baseline Time Spent with Patient Time spent: Less than 30 minutes Exam Vital Signs (past 8 hours): Oxygen Delivery Method Nasal Cannula Oxygen Flow Rate 0 Narrative Exam Narrative: AVSS Alert and oriented x4 Regular rate and rhythm without murmur Respirations clear to auscultation bilaterally; no wheezes rales or rhonchi; chest wall excursions symmetrical Abdomen nondistended with minimal incisional tenderness; good bowel sounds Wounds clean dry and intact without erythema or drainage Moves all extremities x4 Objective Labs 09/24/25 04:54 09/25/25 04:50 [facility] Medical History Microalbuminuria Incomplete emptying of bladder Self-catheterizes urinary bladder Mixed irritable bowel syndrome History of urinary tract infection Chronic pseudo-obstruction of colon Urinary retention Meningioma SBO (small bowel obstruction) Uncontrolled diabetes mellitus Venous telangiectasia of lower extremity House dust mite allergy Pollen allergy Edema of both lower legs Thumb laceration Thumb fracture Contusion of left thumb Green nails Obstructive sleep apnea hypopnea, moderate Acid reflux Diarrhea Esophagitis Syncope Shortness of breath on exertion Palpitations Dizziness Hyponatremia Hypomagnesemia Snoring Abnormal mammogram of right breast (~04/2020) Oral thrush Overweight (BMI 25.0-29.9) Angular cheilitis Onychomycosis Vulvitis Lichen sclerosus of female genitalia Vision disorder Mumps (~1949) Measles (~1949) Chicken pox (~1949) Hearing loss Frequent UTI Hypertension Hyperlipidemia Chronic vaginitis (04/01/16) Osteoarthritis of left hip (04/01/16) Edema of foot (11/01/15) Surgical History Hx of inguinal hernia repair History of left hip replacement Anesthesia Status post hernia repair (~1964) Family History Brother Age: 87 Detached retina Father Cancer Loud snoring Mother Hypertension Stroke Sister Diabetes mellitus Social History marital status: number of children: 1 household members: spouse lives independently: Yes occupational status: previously employed Smoking Status: Unknown if ever smoked alcohol intake: never substance use type: does not use eating out: rarely or never Type(s) of exercise: walking and bicycling frequency: 1-2 times per week duration: 45-60 minutes/day Discharge Assessment & Plan Assessment and Plan Assessment: 84-year-old female who is status post laparoscopic sigmoid colectomy -discharge home today -diet as tolerated; recommend high-protein with vitamin supplementation; use Ensure clear for meal replacement -Zofran ODT for nausea; Tylenol OTC for pain -may shower; no tub baths for 28 days -keep wounds clean and dry; allow Steri-Strips to basically fall off -no lifting greater than 7 lb for 21 days -notify MD for increased temperature, nausea, vomiting, food intolerance, obstipation, are any concerns Plan of Treatment: See above Discharge Plan Discharge Plan Patient Disposition: Home Discharge orders & Medications Prescriptions: New ondansetron 4 mg tablet,disintegrating 4 mg PO Q6H PRN (Reason: nausea and vomiting) Qty: 10 0RF Continued omeprazole 40 mg capsule,delayed release(DR/EC) 40 mg PO DAILY diphenoxylate-atropine 2.5-0.025 mg tablet 1 tab PO 4XD PRN (Reason: diarrhea) CA PANTOTHENATE/FOLIC ACID/VIT (MULTIVITAMIN) 1 tab PO Q DAY Qty: 0 (DME) blood-glucose meter [Blood Glucose Monitoring] Kit See Rx Instructions .ROUTE .MEDSUPPLY Qty: 1 0RF Rx Instructions: Test blood sugar once a day, Brand per insurance ([facility] [place]) lancets [TechLITE Lancets] 28 gauge misc See Rx Instructions .ROUTE .COMPLEX Qty: 100 2RF Dose Instruction: DIRECTED TO TEST BLOOD SUGAR DAILY Rx Instructions: DIRECTED TO TEST BLOOD SUGAR DAILY (DME) Glucocard Expression Strip See Rx Instructions .ROUTE .COMPLEX Qty: 100 2RF Dose Instruction: USE DIRECTED TO TEST BLOOD SUGAR ONE A DAY Rx Instructions: USE DIRECTED TO TEST BLOOD SUGAR ONE A DAY spironolactone 25 mg tablet 25 mg PO DAILY Qty: 90 3RF atorvastatin 40 mg tablet 40 mg PO BEDTIME Qty: 90 3RF ipratropium bromide 42 mcg (0.06 %) spray,non-aerosol 2 spray intranasal BID Qty: 15 1RF atenolol 25 mg tablet 25 mg PO BID Qty: 180 1RF vitamin d 25 mcg capsule 1 cap PO DAILY acidophilus-pectin, citrus [Probiotic Acidophilus-Pectin] 100 million cell-10 mg capsule 1 cap PO DAILY (DME) Disabled Parking Permit See Rx Instructions .ROUTE .MEDSUPPLY Qty: 1 0RF Rx Instructions: I find this patient to be medically disabled and qualified for Disabled Parking as indicated and signed on the accompanying Disabled Parking Application for Individuals. colchicine 0.6 mg tablet 0.6 mg PO DAILY Qty: 14 0RF Rx Instructions: 1.2 mg at the first sign of flare, followed by 0.6 mg after 1 hour clobetasol 0.05 % cream 1 applic topical BID Rx Instructions: APPLY TO AFFECTED AREA TWICE A DAY estradiol 0.01 % (0.1 mg/gram) cream 1 g vaginal 2XW azelastine 137 mcg (0.1 %) aerosol,spray 2 spray intranasal BID PRN (Reason: Nasal Congestion) cranberry 500 mg Capsule 4,200 mg PO DAILY cholestyramine (with sugar) Powder 1 ea PO TID Follow up/Referrals: Anthony Flores MD [Primary Care Provider, Family Practice] Visit Report/Discharge Packet Stand Alone Forms: Patient Portal/API, Stroke Signs & Symptoms Discharge Data Primary Care Provider: Anthony Flores Quality VTE Deep Vein Thrombosis/Pulmonary Embolism Present on Admission: No IH PROFEE Charge Codes Discharge inpatient/observation: [id number]
--- NOTE | 2025-09-26 11:17 | DIET.PN1 ---
Dietary Progress Note Assessment: F/u. Met with pt who reports improved diet tolerance. Reviewed softer foods that may be better tolerated initially and provided handout. Recc Ensure BID until appetite and amount consumed at meals returns to normal and then Ensure after PRN for return to 140#. Provided 2 Ensure coupons. F/u OP PRN. Ht: 172.72 cm Wt: 57.606 kg BMI: 19.3 Last BM: 09/24/25 (09/24/25 10:48) MNA: 12 Vince Score: 22 Diet: 09/25/25 Lunch Soft,Low Fiber (Low residue) Diet Diet Modifications: regulat soft diet Food Texture: Level 7 - Regular Liquid Consistency: Level 0 - Thin Nutrition Percent Meal Consumed 75% 09/26/25 10:32 Percent Meal Consumed 0% 09/25/25 18:00 Percent Meal Consumed Drank Boost shake 09/24/25 18:53 Percent Meal Consumed 100% 09/24/25 13:55 Labs: RBC 4.02 X10^6/uL (4.0-5.2) 09/24/25 04:54 Hgb 12.9 g/dL (12.0-16.0) 09/24/25 04:54 Hct 37.2 % (36-46) 09/24/25 04:54 Creatinine 0.51 mg/dL (0.52-1.04) L 09/25/25 04:50 Lactate 0.6 mmol/L (0.7-2.1) L 09/17/25 11:00 Electronically Signed by: Nneka Storm 09/26/25 11:17 Clinical Dietitian [address] [address]
[2025-09-26 11:40] VITALS: BP 147/68; PULSE 80; RESP 16; TEMP 36.6; O2SAT 97
--- NOTE | 2025-09-26 12:05 | PT.IPTN ---
Current Diagnoses Volvulus (09/17/25) Surgery Performed Operation Date: 09/17/25 14:45 Actual Procedures p Colonoscopy with detorsion of sigmoid volvulus and placement of rectal tube(Not Applicable) - Harry Roche MD Operation Date: 09/20/25 12:00 Actual Procedures p Robot Sigmoid colon resection - Harry Roche MD Physical Therapy Treatment Note M2 PT-IP Current Condition Start: 09/24/25 16:10 Freq: NEEDED Status: Active Protocol: Document 09/24/25 14:55 AB (Rec: 09/24/25 16:25 AB Desktop) Physical Therapy Current Condition Current Condition Evaluation Date 09/24/25 Treatment Diagnosis sigmoid volvulus s/p colectomy; difficulty in walking Onset Date 09/17/25 M3 PT-IP Subjective Start: 09/24/25 16:10 Freq: NEEDED Status: Active Protocol: Document 09/26/25 11:53 AMB (Rec: 09/26/25 12:05 AMB [id number]) Subjective Physical Therapy Visit Type Type Treatment Note Visit Start Time 10:30 Visit Stop Time 11:05 Physical Therapy Visit Comments Patient Comments Pt notes that her is very anxious about her coming home today. Their garage door is broken so she would need to ascend 2 steps to get into the house. Her has a lot of arthritis and has difficulty walking per her report. M4 PT-IP Mobility and Gait Start: 09/24/25 16:10 Freq: NEEDED Status: Active Protocol: Document 09/26/25 11:53 AMB (Rec: 09/26/25 12:05 AMB [id number]) PT-Bed Mobility Assessment Rolling Type of Rolling Log Rolling Level of Assist Standby Assistance Supine to Sit Supine to Sit Standby Assistance Scooting Scooting to Edge of Independent Bed PT-Transfer Assessment Sit to and From Stand Sit to and from Standby Assistance,1 Person Assistance,Use of Upper Stand Extremities Equipment Transfer Assistive Gait Belt,Front Wheeled Walker Device Orthotic/Prosthetic No Devices or Brace: Transfers Transfer Destination Chair Transfer Technique ambulated Transfer Ability Level of Assist Standby Assistance,1 Person Assistance,Use of Upper Extremities Comments Mobility Comments Pt ambulated from her room to the small stairs and back with FWW and SBA. Stood to blow nose with SBA without UE support on walker and maintained balance well. Needed assist to don shoes. Gait Assessment Gait Gait Assistance Standby Assistance,1 Person Assist Required: Distance (Feet) 100 Assistive Devices Assistive Device Gait Belt,Front Wheeled Walker Orthotic/Prosthetic No Devices or Brace: Gait Deviations General Gait Pattern Antalgic,Decreased Stride Length,Decreased Feet Clearance,Narrow Based Gait Factors Limiting Gait Function Factors Limiting Decreased Activity Tolerance,Decreased Strength,Poor Gait Function Balance,Poor Safety Awareness Stair Climbing Assessment Evaluation Level of Assist On Standby Assistance Stairs Devices Stair Climbing Left Railing,Right Railing Assistive Devices Technique/Endurance Stair Climbing Ascend and Descend Direction Stair Climbing Step to Step Technique Number of Steps 3 Climbed Stair Climbing Set # 1 Repetitions (reps) Comments Stair Climbing Betsy given visual instruction in how to ascend and Comments descend stairs safely. Able to ascend and descend stairs with a step to gait pattern safely with SBA. States her rails are close enough together she can use both of them. M5 PT-IP Objective Assessments Start: 09/24/25 16:10 Freq: NEEDED Status: Active Protocol: Document 09/24/25 14:55 AB (Rec: 09/24/25 16:25 AB Desktop) Orientation Orientation/Cognition Level of Alertness Alert Orientation Name,Place,Situation Language Function Hard of Hearing Ability Safety Awareness Decreased Safety Awareness Memory Description No Deficits Noted Gross Range of Motion Lower Extremity ROM Assessment Within Functional Limits Impairments R genu valgum Strength Lower Extremity Strength Assessment Within Functional Limits Muscle Tone Muscle Tone WNL Yes M6 PT-IP Treatment Start: 09/24/25 16:10 Freq: NEEDED Status: Active Protocol: Document 09/25/25 11:35 [facility] (Rec: 09/25/25 12:37 [facility] [id number]) Physical Therapy Treatment Education Education Provided Safety M7 PT-IP Assessment and Plan Start: 09/24/25 16:10 Freq: NEEDED Status: Active Protocol: Document 09/26/25 11:53 AMB (Rec: 09/26/25 12:05 AMB [id number]) PT Summary Assessment and Plan Summary Impairments Pain,ROM,Strength,Balance,Coordination,Sensation,Tone, Cognition,Bed Mobility,Transfers,Gait,Activity Tolerance Assessment Summary Pt was concerned regarding stairs (initially thought she would be able to enter the home through garage but garage door is broken). Discussed post op precautions of not lifting more than 7 pounds. Discussed bed mobility when she doesn't have a bed rail and practiced log roll and pushing with both hands from sidelying. Pt was able to ambulate with FWW and ascend and descend stairs with a railing with step to gait safely and should be able to d/c home when medically stable. Could consider outpatient PT. Goals Bed Mobility Goal Independent Transfer Goal Independent Gait Goal Independent Gait Distance 150 Other Goals up/down steps B rails 15 ft SBA Days to Meet Goals 10 Frequency of Treatment Frequency Of Once a Day Treatment Treatment Plan Physical Therapy Bed Mobility Training,Transfer Training,Gait Training, Treatment Plan Therapeutic Exercise,Balance Retraining,Post Op Education,Discharge Planning,Hot or Cold Pack, Neuromuscular Re-ed,Coordination Retraining,Manual Therapy Recommendations To Nursing Amount of Assist 1 Person Assist Needed Discharge Recommendations PT Discharge Home with Assistance,Outpatient PT Recommendations Transportation Needs Private Vehicle at Discharge - PT assist 1
--- NOTE | 2025-09-26 13:48 | CM.DPNOTE ---
DCP note [employer] reviewed EMR per surgeon, cleared to dc home today. per PT/RN report, ambulating with walker in hallway. will practice stairs. no new DCP needs. P: dc home with spouse support and OP f/u today. no further CM needs at this time, will continue to follow as needed for DCP Coordination SUSAN Sales
== END 2025-09-26 13:40 | disposition home or self-care (01) | DRG 331 ==
LOC: ED 10:19 → AC 12:49
PROVIDERS: Nurse Anesthetist, Certified Registered; Admitting Provider Surgery; Emergency Provider Emergency Medicine; PCP Family Medicine; Referring Provider Emergency Medicine; Visit Provider Surgery
PROC: (CPT 49320; principal; 2025-09-17 14:45)
PROC: 0DTN4ZZ Resection of Sigmoid Colon, Percutaneous Endoscopic Approach (ICD-10-PCS; CPT 44204; principal; 2025-09-20 12:00)
DX: K56.2 Volvulus (principal); K58.2 Mixed irritable bowel syndrome; K59.81 Ogilvie syndrome; K21.9 Gastro-esophageal reflux disease without esophagitis; I10 Essential (primary) hypertension; E78.5 Hyperlipidemia, unspecified; G47.33 Obstructive sleep apnea (adult) (pediatric)
CPT/HCPCS: 36415; 44204; 45337; 74176; 80048; 80053; 82962; 83605; 83690; 85025; 85027; 86850; 86900; 86901; 90471; 90662; 96360; 96361; 97116; 97162; 97530; 99222; 99231; 99232; 99284; J0131; J0295; J0330; J1100; J1171; J1650; J1815; J2405; J2704; J3010; J3490; J7030; J7050; J7120

== ENCOUNTER 2025-09-28 13:25 | Inpatient (IN) | payer MEDICARE, BC, SELFPAY ==
[2025-09-17 11:18] VITALS: BMI 19.3
[2025-09-28] VITALS (27 sets, daily range): BP systolic 72–187; BP diastolic 50–95; PULSE 64–123; RESP 8–88; TEMP 36.2–37.3; O2SAT 18–122; BMI 19.0; BMI 22.4
--- NOTE | 2025-09-28 13:49 | ED_ITS ---
HPI - Recheck/Abnormal Lab/Rx
--- NOTE | 2025-09-28 13:49 | DI.CT.S_ITS ---
PROCEDURE: CT ABDOMEN PELVIS W CON
--- NOTE | 2025-09-28 13:49 | ED.RECABL ---
HPI - Recheck/Abnormal Lab/Rx <Melania Calles PA-C - Last Filed: 09/28/25 19:45> General Chief Complaint: Recheck/Abnormal Lab/Rx Stated Complaint: abd: px Time Seen by Provider: 09/28/25 13:38 Source: patient Mode of arrival: EMS History of Present Illness HPI narrative: Ms. Cordero is a pleasant 84-year-old female with a past medical history of HTN, HLD, IBS, urinary retention who self caths, sigmoid volvulus discharged from the hospital yesterday after undergoing sigmoid colectomy 09/[address] Roche for a sigmoid volvulus who presents to the emergency department via EMS from home for abdominal pain and persistent nausea. Patient states that she was able to pass gas and have a bowel movement during her hospital stay however she does not feel she was ready to go home. She was discharged home on Tylenol and she has had worsening abdominal pain, inability to pass stool or gas today. She has only been able to keep down about 3/4 of liquid ensure today. She denies chest pain, shortness of breath, fevers, chills, flu-like symptoms. Related Data Home Medications ?Medication ?Instructions ?Recorded ?Confirmed CA PANTOTHENATE/FOLIC ACID/VIT 1 tab PO Q DAY ##0 09/13/11 09/28/25 (MULTIVITAMIN) acidophilus 100 million 1 cap PO DAILY 05/26/19 09/28/25 cell-pectin, citrus 10 mg capsule (Probiotic Acidophilus-Pectin) vitamin d 1 cap PO DAILY 05/26/19 09/28/25 azelastine 137 mcg (0.1 %) nasal 2 spray intranasal BID PRN Nasal 04/18/24 09/28/25 spray Congestion omeprazole 40 mg capsule,delayed 40 mg PO DAILY 10/19/24 09/28/25 release diphenoxylate-atropine 2.5 1 tab PO 4XD PRN diarrhea 10/29/24 09/28/25 mg-0.025 mg tablet cranberry 500 mg capsule 4,200 mg PO DAILY 09/27/25 09/28/25 Previous Rx's ?Medication ?Instructions ?Recorded spironolactone 25 mg tablet 25 mg PO DAILY #90 tabs 06/07/25 atorvastatin 40 mg tablet 40 mg PO BEDTIME #90 tabs 06/30/25 ipratropium bromide 42 mcg (0.06 2 spray intranasal BID #15 mL 07/11/25 %) nasal spray atenolol 25 mg tablet 25 mg PO BID #180 tabs 09/01/25 ondansetron 4 mg disintegrating 4 mg PO Q6H PRN nausea and 09/26/25 tablet vomiting #10 tabs amoxicillin 875 mg-potassium 1 tab PO BID #14 tabs 10/03/25 clavulanate 125 mg tablet hydrocodone 5 mg-acetaminophen 325 1 tab PO Q4H PRN Pain, Moderate 10/03/25 mg tablet (4-6) #14 tabs Allergies Allergy/AdvReac Type Severity Reaction Status Date / Time Sulfa (Sulfonamide Allergy Intermediate HIVES Verified 09/20/25 12:07 Antibiotics) ARB-Angiotensin Receptor AdvReac Severe syncope, Verified 09/20/25 12:07 Antagonist diarrhea metformin AdvReac Intermediate Diarrhea Verified 09/20/25 12:07 lisinopril AdvReac Mild COUGH Verified 09/20/25 12:07 Review of Systems <Melania Calles PA-C - Last Filed: 09/28/25 19:45> Review of Systems ROS Unobtainable: All systems reviewed & are unremarkable except as noted in HPI and below Patient History <Melania Calles PA-C - Last Filed: 09/28/25 19:45> Medical History Microalbuminuria Incomplete emptying of bladder Self-catheterizes urinary bladder Mixed irritable bowel syndrome History of urinary tract infection Chronic pseudo-obstruction of colon Urinary retention Meningioma SBO (small bowel obstruction) Uncontrolled diabetes mellitus Venous telangiectasia of lower extremity House dust mite allergy Pollen allergy Edema of both lower legs Thumb laceration Thumb fracture Contusion of left thumb Green nails Obstructive sleep apnea hypopnea, moderate Acid reflux Diarrhea Esophagitis Syncope Shortness of breath on exertion Palpitations Dizziness Hyponatremia Hypomagnesemia Snoring Abnormal mammogram of right breast (~04/2020) Oral thrush Overweight (BMI 25.0-29.9) Angular cheilitis Onychomycosis Vulvitis Lichen sclerosus of female genitalia Vision disorder Mumps (~1949) Measles (~1949) Chicken pox (~1949) Hearing loss Frequent UTI Hypertension Hyperlipidemia Chronic vaginitis (04/01/16) Osteoarthritis of left hip (04/01/16) Edema of foot (11/01/15) Surgical History Hx of inguinal hernia repair History of left hip replacement Anesthesia Status post hernia repair (~1965) Family History Brother Age: 87 Detached retina Father Cancer Loud snoring Mother Hypertension Stroke Sister Diabetes mellitus Social History marital status: number of children: 1 household members: spouse lives independently: Yes occupational status: previously employed Smoking Status: Never smoker alcohol intake: never substance use type: does not use eating out: rarely or never Type(s) of exercise: walking and bicycling frequency: 1-2 times per week duration: 45-60 minutes/day Smoking Status: Never smoker alcohol intake frequency: holidays/special occasions only Exam <Melania Calles PA-C - Last Filed: 09/28/25 19:45> Narrative Exam Narrative: GENERAL: 84 year old patient appears stated age. Well-developed patient, in no acute distress. HEAD: Atraumatic. Normocephalic. EYES: No scleral icterus. No injection or drainage. NECK: Trachea midline. Cervical ROM intact. CARDIOVASCULAR: Regular rate and rhythm. RESPIRATORY: ?Nonlabored respirations. ?Speaking in clear, full sentences. ?Clear to auscultation. Breath sounds equal bilaterally. No wheezes, rales, or rhonchi. ? GASTROINTESTINAL: Abdomen soft, distended. Bowel sounds present. Surgical incision is clean/dry/intact with Steri-Strips in place. Patient reports generalized, nonfocal tenderness. No rebound or guarding. EXTREMITIES: No LE edema. BACK: No CVa tenderness. NEURO: AOx3. ?Clear speech. ?Moves all 4 extremities appropriately. SKIN: No rash or erythema of visible areas Initial Vital Signs Initial Vital Signs: Vital Signs Temperature 98.2 F 09/28/25 13:27 Pulse Rate 91 H 09/28/25 13:27 Respiratory Rate 18 09/28/25 13:27 Blood Pressure 130/73 09/28/25 13:27 Pulse Oximetry 98 09/28/25 13:27 Oxygen Delivery Method Room Air 09/28/25 13:27 <Joan Das DO - Last Filed: 10/04/25 02:56> Initial Vital Signs Initial Vital Signs: Vital Signs Temperature 98.2 F 09/28/25 13:27 Pulse Rate 91 H 09/28/25 13:27 Respiratory Rate 18 09/28/25 13:27 Blood Pressure 130/73 09/28/25 13:27 Pulse Oximetry 98 09/28/25 13:27 Oxygen Delivery Method Room Air 09/28/25 13:27 Course <Melania Calles PA-C - Last Filed: 09/28/25 19:45> Orders Ordered: Discontinued Medications Acetaminophen (Acetaminophen 325 Mg Tablet) 650 mg PO Q6H PRN PRN Reason: Fever/Mild Pain (1-3) Last Admin: 09/30/25 09:20 Dose: 650 mg Documented By: URVASHI Acetaminophen (Acetaminophen 325 Mg Tablet) 650 mg PO Q4HR PRN PRN Reason: Pain, Moderate (4-6) Last Admin: 10/01/25 17:25 Dose: 650 mg Documented By: Admin: 10/01/25 09:07 Dose: 650 mg Documented By: Admin: 09/30/25 14:18 Dose: 650 mg Documented By: URVASHI Hydrocodone Bitart/Acetaminophen (Hydrocodone/Acet 5/325 Tablet) 1 tab PO Q4H PRN PRN Reason: Pain, Moderate (4-6) Last Admin: 10/02/25 22:49 Dose: 1 tab Documented By: Admin: 09/29/25 20:11 Dose: 1 tab Documented By: Admin: 09/29/25 08:05 Dose: 1 tab Documented By: SCARLETT Hydrocodone Bitart/Acetaminophen (Hydrocodone/Acet 5/325 Tablet) 2 tab PO Q4H PRN PRN Reason: Pain, Severe (7-10) Atenolol (Atenolol 25 Mg Tablet) 25 mg PO BID CUBA Last Admin: 10/03/25 08:19 Dose: 25 mg Documented By: Admin: 10/02/25 20:30 Dose: 25 mg Documented By: Admin: 10/02/25 08:12 Dose: 25 mg Documented By: Admin: 10/01/25 20:20 Dose: 25 mg Documented By: Admin: 10/01/25 09:07 Dose: 25 mg Documented By: Admin: 09/30/25 20:38 Dose: 25 mg Documented By: Admin: 09/30/25 09:21 Dose: 25 mg Documented By: Admin: 09/29/25 20:11 Dose: 25 mg Documented By: Admin: 09/29/25 12:00 Dose: 25 mg Documented By: Admin: 09/28/25 21:50 Dose: 25 mg Documented By: KRAIG Atorvastatin Calcium (Atorvastatin 20 Mg Tablet) 40 mg PO BEDTIME [facility] Last Admin: 10/02/25 20:31 Dose: 40 mg Documented By: Admin: 10/01/25 20:20 Dose: 40 mg Documented By: Admin: 09/30/25 20:38 Dose: 40 mg Documented By: Admin: 09/29/25 20:11 Dose: 40 mg Documented By: Admin: 09/28/25 21:50 Dose: 40 mg Documented By: KRAIG Benzocaine (Benzocaine/Menthol 1 Etelvina Pkt) 1 each PO Q4HR PRN PRN Reason: Sore Throat Bupivacaine HCl/Epinephrine Bitart (Bupivacaine 0.25% W/ Epi (Pf) 30 Ml Vial) 30 ml INJ NOW ONE Stop: 09/28/25 18:09 Last Admin: 09/28/25 17:50 Dose: 30 ml Documented By: Bupivacaine Liposome (Bupivacaine Liposome 266 Mg/20 Ml Vial) 266 mg INJ NOW ONE Stop: 09/28/25 18:09 Last Admin: 09/28/25 17:50 Dose: 266 mg Documented By: Enoxaparin Sodium (Enoxaparin 40 Mg/0.4 Ml Syringe) 40 mg SUBCUT DAILY [facility] Last Admin: 10/03/25 08:21 Dose: 40 mg Documented By: Admin: 10/02/25 08:13 Dose: 40 mg Documented By: Admin: 10/01/25 09:08 Dose: 40 mg Documented By: Admin: 09/30/25 09:20 Dose: 40 mg Documented By: Admin: 09/29/25 12:00 Dose: 40 mg Documented By: GREGORIA Fentanyl (Fentanyl 100 Mcg/2 Ml Inj) 0 mcg IV Q5MIN PRN PRN Reason: Pain, Severe (7-10) Hydromorphone HCl (Hydromorphone 1 Mg/Ml Syringe) 0 mg IV Q5MIN PRN PRN Reason: Pain, Mild (1-3) Last Admin: 09/28/25 19:49 Dose: 0.25 mg Documented By: GREGORIA(2) Admin: 09/28/25 19:27 Dose: 0.25 mg Documented By: GREGORIA(2) Hydromorphone HCl (Hydromorphone Hcl 0.5 Mg/0.5 Ml Syringe) 0.25 mg IV Q2H PRN PRN Reason: Pain, Severe (7-10) Last Admin: 09/29/25 23:42 Dose: 0.25 mg Documented By: Admin: 09/28/25 21:52 Dose: 0.25 mg Documented By: KRAIG Hydroxyzine HCl (Hydroxyzine 50 Mg/Ml Inj) 25 mg IM NOW PRN PRN Reason: Pain, Mild (1-3) Sodium Chloride (Normal Saline 0.9%) 1,000 mls @ 1,000 mls/hr IV BOLUS ONE Stop: 09/28/25 14:48 Last Infusion: 09/29/25 02:47 Dose: Infused Documented By: Admin: 09/28/25 14:50 Dose: 1,000 mls/hr Documented By: CASE Piperacillin Sod/Tazobactam (Sod 4.5 gm/ Sodium Chloride) 100 mls @ 200 mls/hr IV NOW ONE Stop: 09/28/25 16:05 Last Infusion: 09/29/25 02:47 Dose: Infused Documented By: Admin: 09/28/25 16:15 Dose: 200 mls/hr Documented By: MIGUEL Lactated Ringer's (Lactated Ringers) 1,000 mls @ 42 mls/hr IV CONT CUBA Last Infusion: 09/29/25 02:53 Dose: Infused Documented By: Infusion: 09/29/25 02:52 Dose: 0 mls/hr Documented By: Admin: 09/28/25 18:15 Dose: 42 mls/hr Documented By: SHASHANK Acetaminophen (Ofirmev) 1,000 mg in 100 mls @ 400 mls/hr IV NOW ONE Stop: 09/28/25 17:56 Last Infusion: 09/29/25 02:44 Dose: Infused Documented By: Admin: 09/28/25 17:42 Dose: 400 mls/hr Documented By: SHASHANK Piperacillin Sod/Tazobactam (Sod 3.375 gm/ Sodium Chloride) 100 mls @ 25 mls/hr IV Q8H CUBA Last Infusion: 09/29/25 02:47 Dose: Infused Documented By: Admin: 09/28/25 18:54 Dose: 25 mls/hr Documented By: GREGORIA(2) Lactated Ringer's (Lactated Ringers) 1,000 mls @ 100 mls/hr IV CONT CUBA Last Infusion: 09/30/25 21:08 Dose: Infused Documented By: Admin: 09/30/25 04:56 Dose: 100 mls/hr Documented By: Infusion: 09/30/25 00:37 Dose: Infused Documented By: Admin: 09/29/25 14:37 Dose: 100 mls/hr Documented By: Infusion: 09/29/25 07:50 Dose: Infused Documented By: Admin: 09/28/25 21:50 Dose: 100 mls/hr Documented By: KRAIG Piperacillin Sod/Tazobactam (Sod 3.375 gm/ Sodium Chloride) 100 mls @ 25 mls/hr IV Q8H CU[facility] Last Admin: 10/03/25 13:22 Dose: Not Given Documented By: Infusion: 10/03/25 11:31 Dose: Infused Documented By: Admin: 10/03/25 06:24 Dose: 25 mls/hr Documented By: Infusion: 10/03/25 03:03 Dose: Infused Documented By: Admin: 10/02/25 22:50 Dose: 25 mls/hr Documented By: Infusion: 10/02/25 20:31 Dose: Infused Documented By: Admin: 10/02/25 15:52 Dose: 200 mls/hr Documented By: Infusion: 10/02/25 10:36 Dose: Infused Documented By: Admin: 10/02/25 06:42 Dose: 25 mls/hr Documented By: Infusion: 10/02/25 03:16 Dose: Infused Documented By: Admin: 10/01/25 23:20 Dose: 25 mls/hr Documented By: Infusion: 10/01/25 20:08 Dose: Infused Documented By: Admin: 10/01/25 16:00 Dose: 25 mls/hr Documented By: Infusion: 10/01/25 10:53 Dose: Infused Documented By: Admin: 10/01/25 06:53 Dose: 25 mls/hr Documented By: Infusion: 10/01/25 04:17 Dose: Infused Documented By: Admin: 09/30/25 23:18 Dose: 25 mls/hr Documented By: Infusion: 09/30/25 21:06 Dose: Infused Documented By: Admin: 09/30/25 16:08 Dose: 25 mls/hr Documented By: SOUTH Sodium Chloride (Normal Saline 0.9%) 1,000 mls @ 100 mls/hr IV CONT CUBA Last Infusion: 10/03/25 07:29 Dose: Infused Documented By: Admin: 10/03/25 06:25 Dose: 100 mls/hr Documented By: Infusion: 10/03/25 06:25 Dose: Infused Documented By: Admin: 10/02/25 20:31 Dose: 100 mls/hr Documented By: Infusion: 10/01/25 20:08 Dose: Infused Documented By: Admin: 10/01/25 04:55 Dose: 100 mls/hr Documented By: Infusion: 10/01/25 02:08 Dose: Infused Documented By: Admin: 09/30/25 16:08 Dose: 100 mls/hr Documented By: SOUTH Ibuprofen (Ibuprofen 600 Mg Tablet) 600 mg PO Q6H PRN PRN Reason: Fever/Mild Pain (1-3) Ipratropium [employer] (Ipratropium 0.06% Nasal 15 Ml) 2 spray NASAL BID [facility] Last Admin: 10/03/25 08:18 Dose: 2 spray Documented By: Admin: 10/02/25 20:31 Dose: 2 spray Documented By: Admin: 10/02/25 08:12 Dose: 2 spray Documented By: Admin: 10/01/25 20:21 Dose: Not Given Documented By: Admin: 10/01/25 09:08 Dose: Not Given Documented By: Admin: 09/30/25 20:39 Dose: Not Given Documented By: Admin: 09/30/25 09:21 Dose: Not Given Documented By: Admin: 09/29/25 20:14 Dose: Not Given Documented By: Admin: 09/29/25 11:56 Dose: Not Given Documented By: Admin: 09/28/25 21:48 Dose: Not Given Documented By: KRAIG Labetalol HCl (Labetalol 20 Mg/4 Ml Syringe) 5 mg IV NOW ONE Stop: 09/28/25 18:55 Last Admin: 09/28/25 19:07 Dose: 5 mg Documented By: GREGORIA(2) Labetalol HCl (Labetalol 20 Mg/4 Ml Syringe) 10 mg IV Q15M PRN PRN Reason: SBP>= 160 or DBP >=110 Last Admin: 09/28/25 19:18 Dose: 5 mg Documented By: GREGORIA(2) Magnesium Chloride (Magnesium Chloride 64 Mg Tablet) 128 mg PO NOW ONE Stop: 10/01/25 09:01 Last Admin: 10/01/25 09:07 Dose: 128 mg Documented By: URVASHI Magnesium Chloride (Magnesium Chloride 64 Mg Tablet) 128 mg PO NOW ONE Stop: 10/02/25 08:01 Last Admin: 10/02/25 08:36 Dose: 128 mg Documented By: ANA Meperidine HCl (Meperidine 50 Mg/Ml Inj) 12.5 mg IV PACUNOW PRN PRN Reason: Mild pain or shivering Morphine Sulfate (Morphine 2 Mg/Ml Inj) 2 mg IV Q2HR PRN PRN Reason: Pain, Moderate (4-6) Last Admin: 09/28/25 14:59 Dose: 2 mg Documented By: CASE Naloxone HCl (Naloxone 0.4 Mg/Ml Vial) 0.2 mg IV Q2MIN PRN PRN Reason: Opiate Reversal Olanzapine (Olanzapine 2.5 Mg Tablet) 5 mg PO BEDTIME [facility] Last Admin: 10/01/25 20:20 Dose: 5 mg Documented By: Admin: 09/30/25 20:38 Dose: 5 mg Documented By: Admin: 09/29/25 20:11 Dose: 5 mg Documented By: Ondansetron HCl (Ondansetron 4 Mg/2 Ml Inj) 4 mg IV NOW ONE Stop: 09/28/25 13:50 Last Admin: 09/28/25 14:59 Dose: 4 mg Documented By: CASE Ondansetron HCl (Ondansetron 4 Mg/2 Ml Inj) 4 mg IV NOW PRN PRN Reason: Nausea And Vomiting Ondansetron HCl (Ondansetron 4 Mg/2 Ml Inj) 4 mg IV Q8HR PRN PRN Reason: Nausea And Vomiting Last Admin: 09/29/25 20:24 Dose: 4 mg Documented By: Admin: 09/29/25 08:03 Dose: 4 mg Documented By: Admin: 09/28/25 22:06 Dose: 4 mg Documented By: KRAIG Ondansetron HCl (Ondansetron 4 Mg/2 Ml Inj) 4 mg IV Q4HR PRN PRN Reason: Nausea Last Admin: 09/30/25 20:36 Dose: 4 mg Documented By: Admin: 09/30/25 09:20 Dose: 4 mg Documented By: Admin: 09/30/25 04:55 Dose: 4 mg Documented By: Oxycodone HCl (Oxycodone Ir 5 Mg Tablet) 5 mg PO PACUNOW PRN PRN Reason: Mild or moderate pain Sodium Chloride (Sodium Chloride 0.9% Flush) 10 ml IV BID CUBA Last Admin: 10/03/25 08:21 Dose: 10 ml Documented By: Admin: 10/02/25 20:40 Dose: 10 ml Documented By: Admin: 10/02/25 08:14 Dose: Not Given Documented By: ANA Sodium Chloride (Sodium Chloride 0.9% Flush) 10 ml IV PRN PRN PRN Reason: Flush Trazodone HCl (Trazodone 50 Mg Tablet) 50 mg PO BEDTIME ONE Stop: 10/03/25 01:38 Last Admin: 10/03/25 01:50 Dose: 50 mg Documented By: ELSLIE Vital Signs Vital signs: Vital Signs - 8 hr 09/28/25 13:27 09/28/25 14:55 09/28/25 14:55 Temperature 98.2 F Pulse Rate 91 H 87 Respiratory Rate 18 30 H Blood Pressure 130/73 133/75 Pulse Oximetry 98 97 Oxygen Delivery Method Room Air 09/28/25 15:00 09/28/25 15:00 09/28/25 15:05 Temperature Pulse Rate 87 96 H Respiratory Rate 43 H 38 H Blood Pressure 126/71 Pulse Oximetry 97 94 Oxygen Delivery Method 09/28/25 15:05 09/28/25 15:10 09/28/25 15:10 Temperature Pulse Rate 94 H Respiratory Rate 37 H Blood Pressure 129/71 146/83 H Pulse Oximetry 98 Oxygen Delivery Method 09/28/25 15:21 09/28/25 15:21 Temperature Pulse Rate 95 H Respiratory Rate 31 H Blood Pressure 72/50 L Pulse Oximetry 95 Oxygen Delivery Method <Joan Das DO - Last Filed: 10/04/25 02:56> Orders Ordered: Discontinued Medications Acetaminophen (Acetaminophen 325 Mg Tablet) 650 mg PO Q6H PRN PRN Reason: Fever/Mild Pain (1-3) Last Admin: 09/30/25 09:20 Dose: 650 mg Documented By: URVASHI Acetaminophen (Acetaminophen 325 Mg Tablet) 650 mg PO Q4HR PRN PRN Reason: Pain, Moderate (4-6) Last Admin: 10/01/25 17:25 Dose: 650 mg Documented By: Admin: 10/01/25 09:07 Dose: 650 mg Documented By: Admin: 09/30/25 14:18 Dose: 650 mg Documented By: URVASHI Hydrocodone Bitart/Acetaminophen (Hydrocodone/Acet 5/325 Tablet) 1 tab PO Q4H PRN PRN Reason: Pain, Moderate (4-6) Last Admin: 10/02/25 22:49 Dose: 1 tab Documented By: Admin: 09/29/25 20:11 Dose: 1 tab Documented By: Admin: 09/29/25 08:05 Dose: 1 tab Documented By: SCARLETT Hydrocodone Bitart/Acetaminophen (Hydrocodone/Acet 5/325 Tablet) 2 tab PO Q4H PRN PRN Reason: Pain, Severe (7-10) Atenolol (Atenolol 25 Mg Tablet) 25 mg PO BID CUBA Last Admin: 10/03/25 08:19 Dose: 25 mg Documented By: Admin: 10/02/25 20:30 Dose: 25 mg Documented By: Admin: 10/02/25 08:12 Dose: 25 mg Documented By: Admin: 10/01/25 20:20 Dose: 25 mg Documented By: Admin: 10/01/25 09:07 Dose: 25 mg Documented By: Admin: 09/30/25 20:38 Dose: 25 mg Documented By: Admin: 09/30/25 09:21 Dose: 25 mg Documented By: Admin: 09/29/25 20:11 Dose: 25 mg Documented By: Admin: 09/29/25 12:00 Dose: 25 mg Documented By: Admin: 09/28/25 21:50 Dose: 25 mg Documented By: KRAIG Atorvastatin Calcium (Atorvastatin 20 Mg Tablet) 40 mg PO BEDTIME [facility] Last Admin: 10/02/25 20:31 Dose: 40 mg Documented By: Admin: 10/01/25 20:20 Dose: 40 mg Documented By: Admin: 09/30/25 20:38 Dose: 40 mg Documented By: Admin: 09/29/25 20:11 Dose: 40 mg Documented By: Admin: 09/28/25 21:50 Dose: 40 mg Documented By: KRAIG Benzocaine (Benzocaine/Menthol 1 Etelvina Pkt) 1 each PO Q4HR PRN PRN Reason: Sore Throat Bupivacaine HCl/Epinephrine Bitart (Bupivacaine 0.25% W/ Epi (Pf) 30 Ml Vial) 30 ml INJ NOW ONE Stop: 09/28/25 18:09 Last Admin: 09/28/25 17:50 Dose: 30 ml Documented By: Bupivacaine Liposome (Bupivacaine Liposome 266 Mg/20 Ml Vial) 266 mg INJ NOW ONE Stop: 09/28/25 18:09 Last Admin: 09/28/25 17:50 Dose: 266 mg Documented By: Enoxaparin Sodium (Enoxaparin 40 Mg/0.4 Ml Syringe) 40 mg SUBCUT DAILY [facility] Last Admin: 10/03/25 08:21 Dose: 40 mg Documented By: Admin: 10/02/25 08:13 Dose: 40 mg Documented By: Admin: 10/01/25 09:08 Dose: 40 mg Documented By: Admin: 09/30/25 09:20 Dose: 40 mg Documented By: Admin: 09/29/25 12:00 Dose: 40 mg Documented By: GREGORIA Fentanyl (Fentanyl 100 Mcg/2 Ml Inj) 0 mcg IV Q5MIN PRN PRN Reason: Pain, Severe (7-10) Hydromorphone HCl (Hydromorphone 1 Mg/Ml Syringe) 0 mg IV Q5MIN PRN PRN Reason: Pain, Mild (1-3) Last Admin: 09/28/25 19:49 Dose: 0.25 mg Documented By: GREGORIA(2) Admin: 09/28/25 19:27 Dose: 0.25 mg Documented By: GREGORIA(2) Hydromorphone HCl (Hydromorphone Hcl 0.5 Mg/0.5 Ml Syringe) 0.25 mg IV Q2H PRN PRN Reason: Pain, Severe (7-10) Last Admin: 09/29/25 23:42 Dose: 0.25 mg Documented By: Admin: 09/28/25 21:52 Dose: 0.25 mg Documented By: KRAIG Hydroxyzine HCl (Hydroxyzine 50 Mg/Ml Inj) 25 mg IM NOW PRN PRN Reason: Pain, Mild (1-3) Sodium Chloride (Normal Saline 0.9%) 1,000 mls @ 1,000 mls/hr IV BOLUS ONE Stop: 09/28/25 14:48 Last Infusion: 09/29/25 02:47 Dose: Infused Documented By: Admin: 09/28/25 14:50 Dose: 1,000 mls/hr Documented By: CASE Piperacillin Sod/Tazobactam (Sod 4.5 gm/ Sodium Chloride) 100 mls @ 200 mls/hr IV NOW ONE Stop: 09/28/25 16:05 Last Infusion: 09/29/25 02:47 Dose: Infused Documented By: Admin: 09/28/25 16:15 Dose: 200 mls/hr Documented By: MIGUEL Lactated Ringer's (Lactated Ringers) 1,000 mls @ 42 mls/hr IV CONT [facility] Last Infusion: 09/29/25 02:53 Dose: Infused Documented By: Infusion: 09/29/25 02:52 Dose: 0 mls/hr Documented By: Admin: 09/28/25 18:15 Dose: 42 mls/hr Documented By: SHASHANK Acetaminophen (Ofirmev) 1,000 mg in 100 mls @ 400 mls/hr IV NOW ONE Stop: 09/28/25 17:56 Last Infusion: 09/29/25 02:44 Dose: Infused Documented By: Admin: 09/28/25 17:42 Dose: 400 mls/hr Documented By: SHASHANK Piperacillin Sod/Tazobactam (Sod 3.375 gm/ Sodium Chloride) 100 mls @ 25 mls/hr IV Q8H [facility] Last Infusion: 09/29/25 02:47 Dose: Infused Documented By: Admin: 09/28/25 18:54 Dose: 25 mls/hr Documented By: GREGORIA(2) Lactated Ringer's (Lactated Ringers) 1,000 mls @ 100 mls/hr IV CONT CUBA Last Infusion: 09/30/25 21:08 Dose: Infused Documented By: Admin: 09/30/25 04:56 Dose: 100 mls/hr Documented By: Infusion: 09/30/25 00:37 Dose: Infused Documented By: Admin: 09/29/25 14:37 Dose: 100 mls/hr Documented By: Infusion: 09/29/25 07:50 Dose: Infused Documented By: Admin: 09/28/25 21:50 Dose: 100 mls/hr Documented By: KRAIG Piperacillin Sod/Tazobactam (Sod 3.375 gm/ Sodium Chloride) 100 mls @ 25 mls/hr IV Q8H [facility] Last Admin: 10/03/25 13:22 Dose: Not Given Documented By: Infusion: 10/03/25 11:31 Dose: Infused Documented By: Admin: 10/03/25 06:24 Dose: 25 mls/hr Documented By: Infusion: 10/03/25 03:03 Dose: Infused Documented By: Admin: 10/02/25 22:50 Dose: 25 mls/hr Documented By: Infusion: 10/02/25 20:31 Dose: Infused Documented By: Admin: 10/02/25 15:52 Dose: 200 mls/hr Documented By: Infusion: 10/02/25 10:36 Dose: Infused Documented By: Admin: 10/02/25 06:42 Dose: 25 mls/hr Documented By: Infusion: 10/02/25 03:16 Dose: Infused Documented By: Admin: 10/01/25 23:20 Dose: 25 mls/hr Documented By: Infusion: 10/01/25 20:08 Dose: Infused Documented By: Admin: 10/01/25 16:00 Dose: 25 mls/hr Documented By: Infusion: 10/01/25 10:53 Dose: Infused Documented By: Admin: 10/01/25 06:53 Dose: 25 mls/hr Documented By: Infusion: 10/01/25 04:17 Dose: Infused Documented By: Admin: 09/30/25 23:18 Dose: 25 mls/hr Documented By: Infusion: 09/30/25 21:06 Dose: Infused Documented By: Admin: 09/30/25 16:08 Dose: 25 mls/hr Documented By: SOUTH Sodium Chloride (Normal Saline 0.9%) 1,000 mls @ 100 mls/hr IV CONT CUBA Last Infusion: 10/03/25 07:29 Dose: Infused Documented By: Admin: 10/03/25 06:25 Dose: 100 mls/hr Documented By: Infusion: 10/03/25 06:25 Dose: Infused Documented By: Admin: 10/02/25 20:31 Dose: 100 mls/hr Documented By: Infusion: 10/01/25 20:08 Dose: Infused Documented By: Admin: 10/01/25 04:55 Dose: 100 mls/hr Documented By: Infusion: 10/01/25 02:08 Dose: Infused Documented By: Admin: 09/30/25 16:08 Dose: 100 mls/hr Documented By: SOUTH Ibuprofen (Ibuprofen 600 Mg Tablet) 600 mg PO Q6H PRN PRN Reason: Fever/Mild Pain (1-3) Ipratropium [employer] (Ipratropium 0.06% Nasal 15 Ml) 2 spray NASAL BID CUBA Last Admin: 10/03/25 08:18 Dose: 2 spray Documented By: Admin: 10/02/25 20:31 Dose: 2 spray Documented By: Admin: 10/02/25 08:12 Dose: 2 spray Documented By: Admin: 10/01/25 20:21 Dose: Not Given Documented By: Admin: 10/01/25 09:08 Dose: Not Given Documented By: Admin: 09/30/25 20:39 Dose: Not Given Documented By: Admin: 09/30/25 09:21 Dose: Not Given Documented By: Admin: 09/29/25 20:14 Dose: Not Given Documented By: Admin: 09/29/25 11:56 Dose: Not Given Documented By: Admin: 09/28/25 21:48 Dose: Not Given Documented By: KRAIG Labetalol HCl (Labetalol 20 Mg/4 Ml Syringe) 5 mg IV NOW ONE Stop: 09/28/25 18:55 Last Admin: 09/28/25 19:07 Dose: 5 mg Documented By: GREGORIA(2) Labetalol HCl (Labetalol 20 Mg/4 Ml Syringe) 10 mg IV Q15M PRN PRN Reason: SBP>= 160 or DBP >=110 Last Admin: 09/28/25 19:18 Dose: 5 mg Documented By: GREGORIA(2) Magnesium Chloride (Magnesium Chloride 64 Mg Tablet) 128 mg PO NOW ONE Stop: 10/01/25 09:01 Last Admin: 10/01/25 09:07 Dose: 128 mg Documented By: URVASHI Magnesium Chloride (Magnesium Chloride 64 Mg Tablet) 128 mg PO NOW ONE Stop: 10/02/25 08:01 Last Admin: 10/02/25 08:36 Dose: 128 mg Documented By: ANA Meperidine HCl (Meperidine 50 Mg/Ml Inj) 12.5 mg IV PACUNOW PRN PRN Reason: Mild pain or shivering Morphine Sulfate (Morphine 2 Mg/Ml Inj) 2 mg IV Q2HR PRN PRN Reason: Pain, Moderate (4-6) Last Admin: 09/28/25 14:59 Dose: 2 mg Documented By: CASE Naloxone HCl (Naloxone 0.4 Mg/Ml Vial) 0.2 mg IV Q2MIN PRN PRN Reason: Opiate Reversal Olanzapine (Olanzapine 2.5 Mg Tablet) 5 mg PO BEDTIME CUBA Last Admin: 10/01/25 20:20 Dose: 5 mg Documented By: Admin: 09/30/25 20:38 Dose: 5 mg Documented By: Admin: 09/29/25 20:11 Dose: 5 mg Documented By: Ondansetron HCl (Ondansetron 4 Mg/2 Ml Inj) 4 mg IV NOW ONE Stop: 09/28/25 13:50 Last Admin: 09/28/25 14:59 Dose: 4 mg Documented By: CASE Ondansetron HCl (Ondansetron 4 Mg/2 Ml Inj) 4 mg IV NOW PRN PRN Reason: Nausea And Vomiting Ondansetron HCl (Ondansetron 4 Mg/2 Ml Inj) 4 mg IV Q8HR PRN PRN Reason: Nausea And Vomiting Last Admin: 09/29/25 20:24 Dose: 4 mg Documented By: Admin: 09/29/25 08:03 Dose: 4 mg Documented By: Admin: 09/28/25 22:06 Dose: 4 mg Documented By: KRAIG Ondansetron HCl (Ondansetron 4 Mg/2 Ml Inj) 4 mg IV Q4HR PRN PRN Reason: Nausea Last Admin: 09/30/25 20:36 Dose: 4 mg Documented By: Admin: 09/30/25 09:20 Dose: 4 mg Documented By: Admin: 09/30/25 04:55 Dose: 4 mg Documented By: Oxycodone HCl (Oxycodone Ir 5 Mg Tablet) 5 mg PO PACUNOW PRN PRN Reason: Mild or moderate pain Sodium Chloride (Sodium Chloride 0.9% Flush) 10 ml IV BID CUBA Last Admin: 10/03/25 08:21 Dose: 10 ml Documented By: Admin: 10/02/25 20:40 Dose: 10 ml Documented By: Admin: 10/02/25 08:14 Dose: Not Given Documented By: CM Sodium Chloride (Sodium Chloride 0.9% Flush) 10 ml IV PRN PRN PRN Reason: Flush Trazodone HCl (Trazodone 50 Mg Tablet) 50 mg PO BEDTIME ONE Stop: 10/03/25 01:38 Last Admin: 10/03/25 01:50 Dose: 50 mg Documented By: LESLIE Vital Signs Vital signs: Vital Signs - 8 hr 09/28/25 13:27 09/28/25 14:55 09/28/25 14:55 Temperature 98.2 F Pulse Rate 91 H 87 Respiratory Rate 18 30 H Blood Pressure 130/73 133/75 Pulse Oximetry 98 97 Oxygen Delivery Method Room Air 09/28/25 15:00 09/28/25 15:00 09/28/25 15:05 Temperature Pulse Rate 87 96 H Respiratory Rate 43 H 38 H Blood Pressure 126/71 Pulse Oximetry 97 94 Oxygen Delivery Method 09/28/25 15:05 09/28/25 15:10 09/28/25 15:10 Temperature Pulse Rate 94 H Respiratory Rate 37 H Blood Pressure 129/71 146/83 H Pulse Oximetry 98 Oxygen Delivery Method 09/28/25 15:21 09/28/25 15:21 Temperature Pulse Rate 95 H Respiratory Rate 31 H Blood Pressure 72/50 L Pulse Oximetry 95 Oxygen Delivery Method MDM - Recheck/Abnormal Lab/Rx <Melania Calles PA-C - Last Filed: 09/28/25 19:45> Medical Records Attestation: I reviewed the patient's medical records. Lab Data 10/02/25 05:25 10/03/25 05:15 Labs: Lab Results 09/28/25 09/28/25 Range/Units 14:50 14:51 WBC 12.7 H (4.5-11.0) X10^3/uL RBC 4.32 (4.0-5.2) X10^6/uL Hgb 13.7 (12.0-16.0) g/dL Hct 40.2 (36-46) % MCV 93.0 (80-100) fL MCH 31.6 (26-34) PG MCHC 34.0 (30-36) % RDW 13.1 (11.6-14.8) % Plt Count 341 (150-400) X10^3/uL Neut % (Auto) 83.8 H (50-75) % Lymph % (Auto) 8.2 L (25-40) % Dillon % (Auto) 7.1 (3-14) % Eos % (Auto) 0.6 L (2-4) % Baso % (Auto) 0.3 (0-2) % Neut # (Auto) 48587 H (8526-3264) /uL Lymph # (Auto) 1000 L (5717-0773) /uL Dillon # (Auto) 900 (0-900) /uL Eos # (Auto) 100 (0-450) /uL Baso # (Auto) 0 (0-100) /uL PT 13.2 H (9.4-12.5) SECONDS INR 1.2 (0.9-1.3) APTT 29 (25.1-36.5) SECONDS Sodium 131 L (137-145) mmol/L Potassium 4.6 (3.4-5.1) mmol/L Chloride 93 L (98-107) mmol/L Carbon Dioxide 27 (22-32) mmol/L BUN 30 H (7-17) mg/dL Creatinine 0.71 (0.52-1.04) mg/dL Estimated GFR > 60 (>60) mL/min BUN/Creatinine Ratio 42.3 H (6-22) Glucose 145 H (70-99) mg/dL Calcium 9.0 (8.4-10.2) mg/dL Magnesium 1.9 (1.6-2.3) mg/dL Total Bilirubin 1.3 (0.2-1.3) mg/dL AST 65 H (14-36) IU/L ALT 79 H (<35) IU/L Alkaline Phosphatase 113 (38-126) U/L Total Protein 6.6 (6.3-8.2) g/dL Albumin 3.6 (3.5-5.0) g/dL Globulin 3.0 (1.7-4.1) g/dL Albumin/Globulin Ratio 1.2 (1.0-2.8) Lipase 51 (23-300) U/L Blood Type O Positive Antibody Screen Negative Imaging Data CT scan - abdomen/pelvis: Radiologist's Impression: PROCEDURE: CT ABDOMEN PELVIS W CON INDICATIONS: gen abd pain; N; recent bowel resection TECHNIQUE: After the administration of intravenous contrast, axial sections acquired from the lung bases to the pubic symphysis. Coronal and sagittal reformats were performed. For radiation dose reduction, the following was used: automated exposure control, adjustment of mA and/or kV according to patient size. COMPARISON: [facility], CT, CT ABDOMEN PELVIS W CON, 04/17/2024, 23:09. FINDINGS: Image quality: Diagnostic. Lower Chest: No significant findings. ABDOMEN: Liver: No solid mass. Gallbladder: No radiopaque gallstones or wall thickening. Biliary ducts: No biliary dilation. Pancreas: No ductal dilation. Spleen: Size is within normal limits. Likely small cyst within central portion of spleen unchanged from prior study. Adrenal Glands: No adrenal nodules. Kidneys and Ureters: No hydronephrosis. No solid mass. Simple appearing left renal cyst is again seen. No complex renal cystic lesion which requires follow up. Stomach and Bowel: Postsurgical changes are noted in rectal sigmoid region from prior partial bowel obstruction section. There is diastasis involving anterior lower sigmoid/rectal wall measures up to 1.6 cm in diameter series 2, image 133. No significant bowel wall thickening. Fluid filled small bowel and colon loops are noted throughout abdomen with [id number] fecal stasis in the colon. The fecal content appears to extending anteriorly into the peritoneal space. Peritoneum: Large amount of peritoneal free air is seen throughout the abdomen. No significant peritoneal free fluid. Ventral Wall: Subcutaneous emphysema in anterior abdominal wall is seen which may represent postsurgical changes. Abdominal Nodes: No retroperitoneal or mesenteric adenopathy by size criteria. Vessels: Aorta and inferior vena cava are normal in size. PELVIS: Pelvic Organs: Unremarkable. Bladder: No bladder wall thickening, accounting for underdistention. Pelvic Nodes: No enlarged lymph nodes. Miscellaneous: No inguinal hernias are seen. Bones: No aggressive osseous abnormality. IMPRESSION: 1. Postsurgical changes from rectal sigmoid resection with diastasis involving surgical anastomosis along anterior wall of rectal sigmoid region with large amount of peritoneal free air. 2. Suggestion of enterocolitis with fluid-filled small bowel and colon loops and questionable wall thickening. No discrete drainable abscess collection. 3. Subcutaneous emphysema in anterior abdominal wall which may be postsurgical changes. 4. Other findings are not significantly changed from prior study. Findings were reported to ordering ER clinician at the time of dictation. Dictated by: Nathan Ramirez M.D. on 09/28/2025 at 14:29 Approved by: Nathan Ramirez M.D. on 09/28/2025 at 14:37 MDM Narrative Medical decision making narrative: 84-year-old female with a past medical history of HTN, HLD, IBS, urinary retention who self caths, sigmoid volvulus discharged from the hospital yesterday after undergoing sigmoid colectomy 09/[address] Roche for a sigmoid volvulus who presents to the emergency department via EMS from home for abdominal pain and persistent nausea. Differential diagnosis includes but is not limited to obstruction, postoperative ileus, ascites, constipation, UTI, electrolyte abnormality, etc. On exam the patient is in no acute distress, nontoxic-appearing, all vital signs within normal limits however her abdomen is quite distended with generalized nonfocal tenderness. She reports persistent nausea and worsening pain since being discharged yesterday with inability to have a bowel movement today or tolerate any solids. We will obtain CBC, CMP, lipase, CT abdomen pelvis with IV contrast, treat with fluids morphine and Zofran at this time. We will also attempt to obtain UA however patient did self catheterization just prior to ER visit. Case immediately discussed with Dr. Das, ED attending. 1435: Initial CT reviewed reveals perforation, radiology Dr. Saeed called states it appears the patient's anastomosis has opened up with leakage of stool. I called General Surgeon on-call Dr. Ruiz who will speak with the patient's surgeon Dr. Melchor, she will come down to the ER to see the patient. CT read confirms postsurgical changes from rectal sigmoid resection with diastasis involving the surgical anastomosis along the anterior wall of the rectal sigmoid region with large amount of peritoneal free air. Labs reveal WBC count 12.7, sodium 131, chloride 93, BUN 30, creatinine 0.71, glucose 145. 1525: Dr. Roche saw pt, will take to OR, he ordered Zosyn. She is hemodynamically stable at this time and aware and agreeable to surgery. Pt will be admitted to surgical service. <Joan Das, DO - Last Filed: 10/04/25 02:56> Lab Data Labs: Lab Results 09/28/25 09/28/25 Range/Units 14:50 14:51 WBC 12.7 H (4.5-11.0) X10^3/uL RBC 4.32 (4.0-5.2) X10^6/uL Hgb 13.7 (12.0-16.0) g/dL Hct 40.2 (36-46) % MCV 93.0 (80-100) fL MCH 31.6 (26-34) PG MCHC 34.0 (30-36) % RDW 13.1 (11.6-14.8) % Plt Count 341 (150-400) X10^3/uL Neut % (Auto) 83.8 H (50-75) % Lymph % (Auto) 8.2 L (25-40) % Dillon % (Auto) 7.1 (3-14) % Eos % (Auto) 0.6 L (2-4) % Baso % (Auto) 0.3 (0-2) % Neut # (Auto) 28445 H (7232-7557) /uL Lymph # (Auto) 1000 L (8182-1593) /uL Dillon # (Auto) 900 (0-900) /uL Eos # (Auto) 100 (0-450) /uL Baso # (Auto) 0 (0-100) /uL PT 13.2 H (9.4-12.5) SECONDS INR 1.2 (0.9-1.3) APTT 29 (25.1-36.5) SECONDS Sodium 131 L (137-145) mmol/L Potassium 4.6 (3.4-5.1) mmol/L Chloride 93 L (98-107) mmol/L Carbon Dioxide 27 (22-32) mmol/L BUN 30 H (7-17) mg/dL Creatinine 0.71 (0.52-1.04) mg/dL Estimated GFR > 60 (>60) mL/min BUN/Creatinine Ratio 42.3 H (6-22) Glucose 145 H (70-99) mg/dL Calcium 9.0 (8.4-10.2) mg/dL Magnesium 1.9 (1.6-2.3) mg/dL Total Bilirubin 1.3 (0.2-1.3) mg/dL AST 65 H (14-36) IU/L ALT 79 H (<35) IU/L Alkaline Phosphatase 113 (38-126) U/L Total Protein 6.6 (6.3-8.2) g/dL Albumin 3.6 (3.5-5.0) g/dL Globulin 3.0 (1.7-4.1) g/dL Albumin/Globulin Ratio 1.2 (1.0-2.8) Lipase 51 (23-300) U/L Blood Type O Positive Antibody Screen Negative Discharge Plan Departure Patient Disposition: Admitted to Surgery Clinical Impression: Bowel perforation Admit Date/Time: 09/28/25 15:43 Admit Provider: Harry Roche ED Sign-out <Joan Das DO - Last Filed: 10/04/25 02:56> Cosign ED Attending Coscleoature Attestation: I was immediately available in the department for consultation. Case was discussed patient's labs and imaging were reviewed patient has a significant amount of free air on CT imaging, general surgery saw patient here in the department with the plan for OR and admission.
[2025-09-28] MEDS: SODIUM CHLORIDE 0.9% 1,000 ML 1000 ML IV (14:50)
[2025-09-28] MEDS: ONDANSETRON 4 MG/2 ML INJ IV ×2 (14:59→22:06)
[2025-09-28] MEDS: MORPHINE 2 MG/ML INJ IV (14:59)
[2025-09-28 15:06] LABS: Add Manual Diff / Slide Review NO; Hematocrit 40.2 % (36-46); Hemoglobin 13.7 g/dL (12.0-16.0); Lymphocytes Absolute Auto 1000 /uL (1100-4500); Mean Corpuscular HGB Conc 34.0 % (30-36); Mean Corpuscular Hemoglobin 31.6 PG (26-34); Mean Corpuscular Volume 93.0 fL (80-100); Platelet Count 341 X10^3/uL (150-400)
[2025-09-28 15:13] LABS: INR 1.2 (0.9-1.3); Prothrombin Time 13.2 SECONDS (9.4-12.5)
[2025-09-28 15:15] LABS: PTT Partial Thromboplastin Tim 29 SECONDS (25.1-36.5)
[2025-09-28 15:18] LABS: Alanine Aminotransferase 79 IU/L (<35); Albumin 3.6 g/dL (3.5-5.0); Albumin Globulin Ratio 1.2 (1.0-2.8); Alkaline Phosphatase 113 U/L (38-126); Blood Urea Nitrogen 30 mg/dL (7-17); Calcium 9.0 mg/dL (8.4-10.2); Carbon Dioxide 27 mmol/L (22-32); Chloride 93 mmol/L (98-107); Estimated Glomerular Filt Rate > 60 mL/min (>60); Globulin 3.0 g/dL (1.7-4.1); Glucose 145 mg/dL (70-99); HEMOLYSIS 24 (0-50); Lipase 51 U/L (23-300); Potassium 4.6 mmol/L (3.4-5.1); Sodium 131 mmol/L (137-145); Total Protein 6.6 g/dL (6.3-8.2)
--- NOTE | 2025-09-28 15:34 | P.HP_ITS ---
History of Present Illness
--- NOTE | 2025-09-28 15:34 | PM.HP.IH.1 ---
History of Present Illness History of Present Illness Date Patient Seen: 09/28/25 Time Patient Seen: 15:34 Chief complaint: abd: px Narrative: Betsy is an 84-year-old woman who had a colon resection for sigmoid volvulus about 1 week ago. She was discharged from the hospital 2 days ago. Yesterday she started to have increasing abdominal pain and nausea. She came to the emergency room today where a CT scan showed an anastomotic leak with free air in the abdomen. [facility] Medical History Microalbuminuria Incomplete emptying of bladder Self-catheterizes urinary bladder Mixed irritable bowel syndrome History of urinary tract infection Chronic pseudo-obstruction of colon Urinary retention Meningioma SBO (small bowel obstruction) Uncontrolled diabetes mellitus Venous telangiectasia of lower extremity House dust mite allergy Pollen allergy Edema of both lower legs Thumb laceration Thumb fracture Contusion of left thumb Green nails Obstructive sleep apnea hypopnea, moderate Acid reflux Diarrhea Esophagitis Syncope Shortness of breath on exertion Palpitations Dizziness Hyponatremia Hypomagnesemia Snoring Abnormal mammogram of right breast (~04/2020) Oral thrush Overweight (BMI 25.0-29.9) Angular cheilitis Onychomycosis Vulvitis Lichen sclerosus of female genitalia Vision disorder Mumps (~1949) Measles (~1949) Chicken pox (~1949) Hearing loss Frequent UTI Hypertension Hyperlipidemia Chronic vaginitis (04/01/16) Osteoarthritis of left hip (04/01/16) Edema of foot (11/01/15) Surgical History Hx of inguinal hernia repair History of left hip replacement Anesthesia Status post hernia repair (~1964) Family History Brother Age: 87 Detached retina Father Cancer Loud snoring Mother Hypertension Stroke Sister Diabetes mellitus Social History marital status: number of children: 1 household members: spouse lives independently: Yes occupational status: previously employed Smoking Status: Never smoker alcohol intake: never substance use type: does not use eating out: rarely or never Type(s) of exercise: walking and bicycling frequency: 1-2 times per week duration: 45-60 minutes/day Meds Home Medications and Allergies Home Medications ?Medication ?Instructions ?Recorded ?Confirmed ?Type CA PANTOTHENATE/FOLIC ACID/VIT 1 tab PO Q DAY ##0 09/13/11 09/27/25 History (MULTIVITAMIN) acidophilus 100 million 1 cap PO DAILY 05/26/19 09/27/25 History cell-pectin, citrus 10 mg capsule (Probiotic Acidophilus-Pectin) vitamin d 1 cap PO DAILY 05/26/19 09/27/25 History blood-glucose meter (Blood Glucose #1 ea 01/10/20 09/27/25 Rx Monitoring kit) lancets 28 gauge (TechLITE Lancets) #100 ea 06/02/23 09/27/25 Rx Disabled Parking Permit #1 ea 09/26/23 09/27/25 Rx azelastine 137 mcg (0.1 %) nasal 2 spray intranasal BID PRN Nasal 04/18/24 09/27/25 History spray Congestion clobetasol 0.05 % topical cream 1 applic topical BID 04/18/24 09/27/25 History estradiol 0.01% (0.1 mg/gram) 1 g vaginal 2XW 04/18/24 09/27/25 History vaginal cream blood sugar diagnostic (Glucocard #100 ea 06/02/24 09/27/25 Rx Expression strips) omeprazole 40 mg capsule,delayed 40 mg PO DAILY 10/19/24 09/27/25 History release diphenoxylate-atropine 2.5 1 tab PO 4XD PRN diarrhea 10/29/24 09/27/25 History mg-0.025 mg tablet spironolactone 25 mg tablet 25 mg PO DAILY #90 tabs 06/07/25 09/27/25 Rx atorvastatin 40 mg tablet 40 mg PO BEDTIME #90 tabs 06/30/25 09/27/25 Rx ipratropium bromide 42 mcg (0.06 2 spray intranasal BID #15 mL 07/11/25 09/27/25 Rx %) nasal spray atenolol 25 mg tablet 25 mg PO BID #180 tabs 09/01/25 09/27/25 Rx ondansetron 4 mg disintegrating 4 mg PO Q6H PRN nausea and 09/26/25 09/27/25 Rx tablet vomiting #10 tabs cranberry 500 mg capsule 4,200 mg PO DAILY 09/27/25 09/27/25 History Allergies Allergy/AdvReac Type Severity Reaction Status Date / Time Sulfa (Sulfonamide Allergy Intermediate HIVES Verified 09/20/25 12:07 Antibiotics) ARB-Angiotensin Receptor AdvReac Severe syncope, Verified 09/20/25 12:07 Antagonist diarrhea metformin AdvReac Intermediate Diarrhea Verified 09/20/25 12:07 lisinopril AdvReac Mild COUGH Verified 09/20/25 12:07 Exam Vital Signs (past 8 hours): - 09/28/25 13:27 Temperature 98.2 F Pulse Rate 91 H Respiratory Rate 18 Blood Pressure 130/73 Pulse Oximetry 98 Oxygen Delivery Method Room Air Oxygen Delivery Method Room Air Narrative Exam Narrative: Abdomen is distended with peritonitis Objective Labs 09/28/25 14:51 09/28/25 14:51 Labs: Laboratory Results - last 24 hr 09/28/25 14:51 WBC 12.7 H RBC 4.32 Hgb 13.7 Hct 40.2 MCV 93.0 MCH 31.6 MCHC 34.0 RDW 13.1 Plt Count 341 Neut % (Auto) 83.8 H Lymph % (Auto) 8.2 L Upson % (Auto) 7.1 Eos % (Auto) 0.6 L Baso % (Auto) 0.3 Neut # (Auto) 03671 H Lymph # (Auto) 1000 L Upson # (Auto) 900 Eos # (Auto) 100 Baso # (Auto) 0 PT 13.2 H INR 1.2 APTT 29 Sodium 131 L Potassium 4.6 Chloride 93 L Carbon Dioxide 27 BUN 30 H Creatinine 0.71 Estimated GFR > 60 BUN/Creatinine Ratio 42.3 H Glucose 145 H Calcium 9.0 Total Bilirubin 1.3 AST 65 H ALT 79 H Alkaline Phosphatase 113 Total Protein 6.6 Albumin 3.6 Globulin 3.0 Albumin/Globulin Ratio 1.2 Lipase 51 Assessment & Plan Assessment and plan (1) Perforated viscus: Status: Acute Plan I explained to Betsy that she has a leak from her colon anastomosis. She will need to return to the operating room. I explained that I would most likely need to perform a diverting end colostomy to make her better without taking a high risk of recurring sepsis. She would like to proceed. Time-Based Coding :: [TOTAL MINUTES] spent with patient and on the chart (including review of chart, obtaining history, exam, reviewing outside data, placing orders, documenting exam and treatment plan, and counseling patient) on [DATE]. PROFEE Min[employer] Surveying Technician Document charge(s): No
--- NOTE | 2025-09-28 15:55 | CM.DANOTE ---
DCP Assessment Note: Pt is a 84yo female, resident of [place], is admitted for Bowel perforation. Patient is s/p bowel resection on 09/20/25. Pt lives in a house with her , Handy. Pt's Primary Care Provider is Dr. Anthony Flores and insurance is Medicare and [facility]. Reviewed chart and discussed with multidisciplinary team pt's medical status and initial discharge needs. Per ED Provider, pt accepted by Surgeon and added to surgery schedule this evening. Plan: Surgery to repair perforated bowel, anticipating discharge home with spouse when medically cleared. Following for possible home health needs. CM team will follow closely for coordination of discharge plans. CHRISTA Saldivar Discharge Planning/Care Management CM Discharge Assessment Start: 09/28/25 15:52 Freq: Status: Active Protocol: Document 09/28/25 15:52 MW (Rec: 09/28/25 15:55 MW [id number]) Discharge Planning Assessment Assigned Discharge SUSAN Hurley Return Checker Provider Dr. Anthony Flores Insurance [facility],Medicare DPOA/Assigned Handy, Spouse Designee Name Contact Information [phone] Advance Directives? Yes Advance Directives No on File History Provided By Patient,Family Member,Medical Record Has Patient been Yes admitted in last 30 days? Comment 09/17/25 to 09/26/25 Prior Living House Arrangements Household Members spouse Independent with ADL Yes 's Is patient alert and Yes oriented? Discharge Plan Home Transportation Spouse Arrangement Referrals Initiated None needed Review Status In Process Please Provide Date 09/28/25 Initial DC Assessment Was Performed Next Review Type Continued Stay Review
[2025-09-28] MEDS: PIPERACILLIN/TAZO 4.5 GM in SODIUM CHLORIDE 0.9% 100 ML IV (16:15)
[2025-09-28] MEDS: ACETAMINOPHEN IV 1,000 MG/100 ML VIAL 400 MG IV (17:42)
[2025-09-28] MEDS: BUPivacaine 0.25% W/ EPI (PF) 30 ML VIAL INJ (17:50)
[2025-09-28] MEDS: LACTATED RINGERS 1,000 ML 42 ML IV (18:15)
--- NOTE | 2025-09-28 18:23 | P.OP_ITS ---
Operative Date/Time/Diagnoses
--- NOTE | 2025-09-28 18:23 | PM.OP.1 ---
Operative Date/Time/Diagnoses Date of procedure: 09/28/25 Time of procedure: 18:23 Pre-op diagnosis: Anastomotic leak Post-op diagnosis: same Procedure & Clinicians Procedure: Exploratory laparotomy Abdominal washout End colostomy Same procedure(s) as scheduled: Yes Surgeon: Harry Roche Assisted?: Yes Cable Splicer Helper: Ramon Schmitz Anesthesia Type: General Operative Notes Findings: Small disruption of the anterior aspect of the circular stapled anastomosis Applied: none Estimated Blood Loss (mL): 20 Procedure in detail: The patient is an 84-year-old woman who was about 8 days postop from a sigmoid colon resection for chronic volvulus. She presented to the emergency room with abdominal pain and nausea. A CT scan showed free air in the abdomen. She was consented for exploratory laparotomy and colostomy. The patient was given Zosyn. The patient was brought to the operating room and general endotracheal anesthesia was induced. The Dia catheter was placed under sterile conditions. A digital rectal exam was performed and a small amount of stool was removed from the rectum. The abdomen was prepped and draped in the usual fashion. A low midline incision was created from the umbilicus to the pubis. The abdomen was entered under direct vision. An Dain retractor was placed. The patient was placed in Trendelenburg. The Bookwalter was assembled. There was purulent exudate in the pelvis near the anterior portion of the anastomosis. There did not appear to be free spillage of stool into the rest of the abdomen at the time of surgery. The anastomosis was mobilized bluntly. Initially the colon was divided superior or cephalad from the anastomosis with TA stapler with a green load to move it out of the field. A bowel clamp was applied across the distal colon. We then further mobilize the top of the rectal stump. Another firing of the TA stapler with a green load was performed below the anastomosis. There was no evidence of leakage from the rectal stump. We then washed out the pelvis with 2 L of warm sterile saline. We then placed a 19 round Ben drain through a right lower quadrant stab incision and placed it in the pelvis near the rectal stump. Exparel was injected into the fascia. A colostomy was created in the left lower quadrant through the rectus muscle. The midline incision was then closed with 0 PDS in a running fashion supported by multiple interrupted 0 Vicryl internal retention sutures. The skin was closed with morgan and a sterile dressing was applied over the midline wound. The colostomy was then matured in a Nuria fashion and a stoma appliance was applied. Complications: none Post-operative Condition: stable Disposition: PACU
[2025-09-28] MEDS: PIPERACILLIN/TAZO 3.375 GM in SODIUM CHLORIDE 0.9% 100 ML IV (18:54)
[2025-09-28] MEDS: LABETALOL 20 MG/4 ML SYRINGE 5 MG IV (19:07)
[2025-09-28] MEDS: LABETALOL 20 MG/4 ML SYRINGE 10 MG IV (19:18)
--- NOTE | 2025-09-28 19:20 | EKG_ITS ---
[facility]
--- NOTE | 2025-09-28 19:52 | SUR.PHASEI ---
Pt appears to be in atrial fibrillation; irregular, no P waves noted, HR 107-122; d/w Kandice Richardson ACUTE CARE CLINICAL NURSE SPECIALIST, order for EKG obtained and EKG performed, notified Kandice Richardson of results, pt to be seen by hospitalist on ACU as soon as possible after arrival.
--- NOTE | 2025-09-28 20:52 | P.CONS_ITS ---
History of Present Illness
--- NOTE | 2025-09-28 20:52 | PM.CN ---
History of Present Illness Consult details Chief complaint: abd: px Narrative: 84 years old female who had colon resection for sigmoid volvulus about 1 week ago presented back to the ER after increased abdominal pain and nausea. CT scan of the abdomen shows anastomotic leak with free air in the abdomen. Patient just had abdominal surgery with colostomy placed. During her recovery she was noted to have brief episodes of A-fib with RVR on telemetry. Subsequent echo showed sinus tachycardia with first-degree AV block. Prolonged QT and marked T wave abnormalities considering anterior ischemia. A consult was placed for prolonged QT and brief episodes of atrial fibrillation. Meds Home Medications and Allergies Home Medications ?Medication ?Instructions ?Recorded ?Confirmed ?Type CA PANTOTHENATE/FOLIC ACID/VIT 1 tab PO Q DAY ##0 09/13/11 09/28/25 History (MULTIVITAMIN) acidophilus 100 million 1 cap PO DAILY 05/26/19 09/28/25 History cell-pectin, citrus 10 mg capsule (Probiotic Acidophilus-Pectin) vitamin d 1 cap PO DAILY 05/26/19 09/28/25 History lancets 28 gauge (TechLITE Lancets) #100 ea 06/02/23 09/28/25 Rx Disabled Parking Permit #1 ea 09/26/23 09/28/25 Rx azelastine 137 mcg (0.1 %) nasal 2 spray intranasal BID PRN Nasal 04/18/24 09/28/25 History spray Congestion omeprazole 40 mg capsule,delayed 40 mg PO DAILY 10/19/24 09/28/25 History release diphenoxylate-atropine 2.5 1 tab PO 4XD PRN diarrhea 10/29/24 09/28/25 History mg-0.025 mg tablet spironolactone 25 mg tablet 25 mg PO DAILY #90 tabs 06/07/25 09/28/25 Rx atorvastatin 40 mg tablet 40 mg PO BEDTIME #90 tabs 06/30/25 09/28/25 Rx ipratropium bromide 42 mcg (0.06 2 spray intranasal BID #15 mL 07/11/25 09/28/25 Rx %) nasal spray atenolol 25 mg tablet 25 mg PO BID #180 tabs 09/01/25 09/28/25 Rx ondansetron 4 mg disintegrating 4 mg PO Q6H PRN nausea and 09/26/25 09/28/25 Rx tablet vomiting #10 tabs cranberry 500 mg capsule 4,200 mg PO DAILY 09/27/25 09/28/25 History Allergies Allergy/AdvReac Type Severity Reaction Status Date / Time Sulfa (Sulfonamide Allergy Intermediate HIVES Verified 09/20/25 12:07 Antibiotics) ARB-Angiotensin Receptor AdvReac Severe syncope, Verified 09/20/25 12:07 Antagonist diarrhea metformin AdvReac Intermediate Diarrhea Verified 09/20/25 12:07 lisinopril AdvReac Mild COUGH Verified 09/20/25 12:07 Review of Systems Review of Systems ROS: Yes All systems reviewed with the patient and are negative except as otherwise documented Constitutional Constitutional: Reports as per HPI and Reports system reviewed and no additional complaints, except as documented Eyes Eyes: Reports as per HPI and Reports system reviewed and no additional complaints, except as documented ENT Ears, Nose, Mouth, and Throat: Yes as per HPI and Yes system reviewed and no additional complaints, except as documented Cardiovascular Cardiovascular: Reports system reviewed and no additional complaints, except as documented Respiratory Respiratory: Reports system reviewed and no additional complaints, except as documented Gastrointestinal Gastrointestinal: Reports system reviewed and no additional complaints, except as documented Genitourinary Genitourinary: Reports system reviewed and no additional complaints, except as documented Musculoskeletal Musculoskeletal: Reports system reviewed and no additional complaints, except as documented, Reports abnormal gait and Reports numbness Neurologic Neurologic: Reports system reviewed and no additional complaints, except as documented, Reports abnormal gait, Reports confusion and Reports numbness Psychiatric Psychiatric: Reports system reviewed and no additional complaints, except as documented and Reports confusion Exam Vital Signs (past 8 hours): - 09/28/25 13:27 09/28/25 14:55 09/28/25 14:55 Temperature 98.2 F Pulse Rate 91 H 87 Respiratory Rate 18 30 H Blood Pressure 130/73 133/75 Pulse Oximetry 98 97 Oxygen Delivery Method Room Air Oxygen Flow Rate 09/28/25 15:00 09/28/25 15:00 09/28/25 15:05 Temperature Pulse Rate 87 96 H Respiratory Rate 43 H 38 H Blood Pressure 126/71 Pulse Oximetry 97 94 Oxygen Delivery Method Oxygen Flow Rate 09/28/25 15:05 09/28/25 15:10 09/28/25 15:10 Temperature Pulse Rate 94 H Respiratory Rate 37 H Blood Pressure 129/71 146/83 H Pulse Oximetry 98 Oxygen Delivery Method Oxygen Flow Rate 09/28/25 15:21 09/28/25 15:21 09/28/25 16:21 Temperature 99 F Pulse Rate 95 H 114 H Respiratory Rate 31 H 20 Blood Pressure 72/50 L 157/92 H Pulse Oximetry 95 95 Oxygen Delivery Method Room Air Oxygen Flow Rate 09/28/25 18:26 09/28/25 18:30 09/28/25 18:35 Temperature 99.2 F Pulse Rate 86 100 H Respiratory Rate 88 H 10 L 12 Blood Pressure 150/70 H 161/75 H 167/79 H Pulse Oximetry 18 L 97 97 Oxygen Delivery Method Room Air Room Air Room Air Oxygen Flow Rate 97 09/28/25 18:40 09/28/25 18:45 09/28/25 18:50 Temperature 98.8 F Pulse Rate 100 H 100 H 93 H Respiratory Rate 10 L 8 L 8 L Blood Pressure 176/77 H 186/83 H 179/79 H Pulse Oximetry 96 96 97 Oxygen Delivery Method Room Air Room Air Room Air Oxygen Flow Rate 09/28/25 18:55 09/28/25 19:00 09/28/25 19:05 Temperature Pulse Rate 92 H 99 H 100 H Respiratory Rate 9 L 8 L 10 L Blood Pressure 187/84 H 178/74 H 186/95 H Pulse Oximetry 97 97 97 Oxygen Delivery Method Room Air Room Air Oxygen Flow Rate 09/28/25 19:07 09/28/25 19:10 09/28/25 19:18 Temperature 98.8 F Pulse Rate 99 H 103 H 104 H Respiratory Rate 10 L Blood Pressure 187/84 H 158/83 H 161/85 H Pulse Oximetry 96 Oxygen Delivery Method Room Air Oxygen Flow Rate 09/28/25 19:25 09/28/25 19:39 09/28/25 19:50 Temperature 98.5 F Pulse Rate 105 H 123 H 107 H Respiratory Rate 10 L 15 8 L Blood Pressure 141/77 H 141/78 H 144/79 H Pulse Oximetry 96 122 H 95 Oxygen Delivery Method Room Air Room Air Room Air Oxygen Flow Rate 09/28/25 20:05 09/28/25 20:35 Temperature 97.2 F L Pulse Rate 84 64 Respiratory Rate 15 15 Blood Pressure 104/78 129/69 Pulse Oximetry 97 94 Oxygen Delivery Method Oxygen Flow Rate 0 0 Oxygen Delivery Method Room Air Oxygen Flow Rate 0 Const General: cooperative, comfortable and well developed Orientation: alert and oriented x3 [facility] Head: normal to inspection, normocephalic and atraumatic Face and sinus: normal facial exam Mouth: oral mucosae normal and moist mucous membranes Throat: posterior oropharynx normal Eyes General: appearance normal, both eyes and all related structures Pupils: PERRL EOM: EOM intact bilaterally Neck Neck: normal visual inspection and full ROM Chest Chest: normal inspection of the chest Resp Effort & Inspection: normal respiratory effort and able to speak in complete sentences Auscultation: clear to auscultation bilaterally Cardio Palpation: normal PMI Rate: regular rate Rhythm: regular rhythm Heart Sounds: S1 normal and S2 normal GI Inspection: normal to inspection Palpation: soft and no hepatosplenomegaly Auscultation: normal bowel sounds Skin General: no rashes or lesions noted Lesions: no lesions Rashes: no rashes Trauma: no lacerations or abrasions Neuro General: patient alert, patient awake, patient oriented x3 and no focal motor deficits Cranial Nerves: CN's II-XI intact bilaterally Cognition: normal cognition Speech: speech normal Gait: normal gait Motor: muscle tone normal throughout Sensory Exam: no sensory deficits noted Extrem General: full ROM and no calf tenderness Psych Appearance: grossly normal Mental Status: mental status grossly normal Speech and Movement: speech and movement normal Objective Labs 09/28/25 14:51 09/28/25 14:51 Labs: Laboratory Results - last 24 hr 09/28/25 09/28/25 09/28/25 14:50 14:51 20:10 WBC 12.7 H RBC 4.32 Hgb 13.7 Hct 40.2 MCV 93.0 MCH 31.6 MCHC 34.0 RDW 13.1 Plt Count 341 Neut % (Auto) 83.8 H Lymph % (Auto) 8.2 L [place] % (Auto) 7.1 Eos % (Auto) 0.6 L Baso % (Auto) 0.3 Neut # (Auto) 06922 H Lymph # (Auto) 1000 L [place] # (Auto) 900 Eos # (Auto) 100 Baso # (Auto) 0 PT 13.2 H INR 1.2 APTT 29 Sodium 131 L Potassium 4.6 Chloride 93 L Carbon Dioxide 27 BUN 30 H Creatinine 0.71 Estimated GFR > 60 BUN/Creatinine Ratio 42.3 H Glucose 145 H POC Whole Bld Glucose 137 H Calcium 9.0 Total Bilirubin 1.3 AST 65 H ALT 79 H Alkaline Phosphatase 113 Total Protein 6.6 Albumin 3.6 Globulin 3.0 Albumin/Globulin Ratio 1.2 Lipase 51 Blood Type O Positive Antibody Screen Negative [facility] Medical History Microalbuminuria Incomplete emptying of bladder Self-catheterizes urinary bladder Mixed irritable bowel syndrome History of urinary tract infection Chronic pseudo-obstruction of colon Urinary retention Meningioma SBO (small bowel obstruction) Uncontrolled diabetes mellitus Venous telangiectasia of lower extremity House dust mite allergy Pollen allergy Edema of both lower legs Thumb laceration Thumb fracture Contusion of left thumb Green nails Obstructive sleep apnea hypopnea, moderate Acid reflux Diarrhea Esophagitis Syncope Shortness of breath on exertion Palpitations Dizziness Hyponatremia Hypomagnesemia Snoring Abnormal mammogram of right breast (~04/2020) Oral thrush Overweight (BMI 25.0-29.9) Angular cheilitis Onychomycosis Vulvitis Lichen sclerosus of female genitalia Vision disorder Mumps (~1949) Measles (~1949) Chicken pox (~1949) Hearing loss Frequent UTI Hypertension Hyperlipidemia Chronic vaginitis (04/01/16) Osteoarthritis of left hip (04/01/16) Edema of foot (11/01/15) Surgical History Hx of inguinal hernia repair History of left hip replacement Anesthesia Status post hernia repair (~1964) Family History Brother Age: 87 Detached retina Father Cancer Loud snoring Mother Hypertension Stroke Sister Diabetes mellitus Social History marital status: number of children: 1 household members: spouse lives independently: Yes occupational status: previously employed Tobacco & Substance Use Smoking Status: Never smoker alcohol intake: never substance use type: does not use Diet and Exercise eating out: rarely or never Type(s) of exercise: walking and bicycling frequency: 1-2 times per week duration: 45-60 minutes/day Assessment & Plan Assessment & Plan narrative: Postoperative brief episodes of atrial fibrillation with RVR and sinus tachycardia with prolonged QT on EKG. No history of atrial fibrillation in the past. - Place the patient on telemetry - Check TSH, magnesium, potassium and calcium - Echo - Pharmacy consult for potential medication causing prolonged QT - repeat EKG and troponin in the morning - Consider cardiology consult if atrial fibrillation persists. I performed this consultation using real-time telehealth tools, including a live video connection between my location and the patient's location. As the provider for this telehealth service, I attest that I introduced myself to the patient, provided my credentials, disclosed my location, and determined that, based on a review of the patients chart and/or a discussion with members of the patient's treatment team, telemedicine via a real-time, two-way, interactive audio and video platform is an appropriate and effective means of providing this service. The patient and I mutually agree that this visit is appropriate for telemedicine as well. Disclaimer Note: To increase efficiency, your provider may have prepared this document using voice recognition technology. In that case, if a word or phrase is confusing, or does not make sense, this is likely due to a recognition error within the program which was not discovered during the provider?s review. If you believe an error has occurred, please notify your provider?s office at your earliest convenience, so we can correct any mistakes. Date and time of service: 09/28/2025 at 19:35. Spent around 50 minutes on the case. Time-Based Coding :: [TOTAL MINUTES] spent with patient and on the chart (including review of chart, obtaining history, exam, reviewing outside data, placing orders, documenting exam and treatment plan, and counseling patient) on [DATE].
[2025-09-28 21:01] LABS: Lactate (Lactic Acid) 1.6 mmol/L (0.7-2.1)
[2025-09-28 21:05] LABS: Magnesium 1.9 mg/dL (1.6-2.3)
[2025-09-28] MEDS: ATORVASTATIN 20 MG TABLET 40 MG PO (21:50)
[2025-09-28] MEDS: LACTATED RINGERS 1,000 ML 100 ML IV (21:50)
[2025-09-29] VITALS (7 sets, daily range): BP systolic 130–163; BP diastolic 72–96; PULSE 82–94; RESP 15–18; TEMP 36.8–37.2; O2SAT 95–96
[2025-09-29 04:58] LABS: Add Manual Diff / Slide Review NO; Hematocrit 37.9 % (36-46); Hemoglobin 12.9 g/dL (12.0-16.0); Lymphocytes Absolute Auto 900 /uL (1100-4500); Mean Corpuscular HGB Conc 34.1 % (30-36); Mean Corpuscular Hemoglobin 31.2 PG (26-34); Mean Corpuscular Volume 91.6 fL (80-100); Platelet Count 317 X10^3/uL (150-400)
[2025-09-29 05:11] LABS: Blood Urea Nitrogen 23 mg/dL (7-17); Calcium 8.4 mg/dL (8.4-10.2); Carbon Dioxide 24 mmol/L (22-32); Chloride 98 mmol/L (98-107); Estimated Glomerular Filt Rate > 60 mL/min (>60); Glucose 131 mg/dL (70-99); HEMOLYSIS < 15 (0-50); Potassium 4.7 mmol/L (3.4-5.1); Sodium 130 mmol/L (137-145)
[2025-09-29 05:21] LABS: Troponin I < 0.012 ng/mL (0.01-0.034)
[2025-09-29 06:29] LABS: Thyroid Stimulating Hormone 1.83 uIU/mL (0.47-4.68)
--- NOTE | 2025-09-29 07:29 | P.CONS_ITS ---
History of Present Illness
--- NOTE | 2025-09-29 07:29 | PM.CN ---
History of Present Illness Consult details Date Patient Seen: 09/29/25 Chief complaint: abd: px Requesting provider: Harry Roche Narrative: Reason for consult: Atrial tachycardia and QTC prolongation of 616 (interpreted as atrial fibrillation) perioperatively History of present illness: 09/29: An 84-year-old male 8 days postoperative correction of colon volvulus developed anastomotic leak peritonitis was brought back to the emergency room in the evening of 09/28. Preoperatively patient developed an atrial tachycardia/arrhythmia interpreted as atrial fibrillation. The nocturnal offsite tele-hospitalist was consulted. Telemetry was interpreted as atrial fibrillation. Electrocardiogram was performed which demonstrated sinus tachycardia rate of 118 with first-degree AV block with NV interval of 240, right anterior hemiblock, and QTC prolongation with interval of 616. Troponin was less than 0.012 interpreted as negative. Recorded vital signs were stable the lowest blood pressure 104/78 in the most recent blood pressure 130/77. Review of telemetry records Hospital course: 09/29: Doing well postoperatively no complaints of pain started diet per surgery EKG reviewed and telemetry reviewed there are multifocal PACs and sinus arrhythmia but no true atrial fibrillation Review of systems: No chest pain palpitations Shortness for breath The paresthesia paresis No loss of consciousness Physical exam: No acute distress HEENT unremarkable Heart rate and rhythm regular with premature beats and pauses (not irregularly irregular) Lungs with bibasilar rales Extremities no edema Assessment and plan: Multi atrial tachycardia (no findings of atrial fibrillation and review of telemetry strips or EKGs) Continue cardiac telemetry No intervention for MAT indicated Echocardiogram normal QT prolongation: Magnesium normal Avoid medications or combinations that further QT prolongation Continue telemetry Repeat EKG in a.m. Anastomotic leak status post colostomy Management per surgery stewardship DVT prophylaxis: Per surgery stewardship Code status: Full code blue Disposition: Inpatient per surgery (attending) discretion Time based billin minutes were involved in the management of this patient including extensive review of telemetry strips EKGs objective laboratory and imaging data previous medical records discussion with care team Meds Home Medications and Allergies Home Medications ?Medication ?Instructions ?Recorded ?Confirmed ?Type CA PANTOTHENATE/FOLIC ACID/VIT 1 tab PO Q DAY ##0 09/13/11 09/28/25 History (MULTIVITAMIN) acidophilus 100 million 1 cap PO DAILY 05/26/19 09/28/25 History cell-pectin, citrus 10 mg capsule (Probiotic Acidophilus-Pectin) vitamin d 1 cap PO DAILY 05/26/19 09/28/25 History lancets 28 gauge (TechLITE Lancets) #100 ea 06/02/23 09/28/25 Rx Disabled Parking Permit #1 ea 09/26/23 09/28/25 Rx azelastine 137 mcg (0.1 %) nasal 2 spray intranasal BID PRN Nasal 04/18/24 09/28/25 History spray Congestion omeprazole 40 mg capsule,delayed 40 mg PO DAILY 10/19/24 09/28/25 History release diphenoxylate-atropine 2.5 1 tab PO 4XD PRN diarrhea 10/29/24 09/28/25 History mg-0.025 mg tablet spironolactone 25 mg tablet 25 mg PO DAILY #90 tabs 06/07/25 09/28/25 Rx atorvastatin 40 mg tablet 40 mg PO BEDTIME #90 tabs 06/30/25 09/28/25 Rx ipratropium bromide 42 mcg (0.06 2 spray intranasal BID #15 mL 07/11/25 09/28/25 Rx %) nasal spray atenolol 25 mg tablet 25 mg PO BID #180 tabs 09/01/25 09/28/25 Rx ondansetron 4 mg disintegrating 4 mg PO Q6H PRN nausea and 09/26/25 09/28/25 Rx tablet vomiting #10 tabs cranberry 500 mg capsule 4,200 mg PO DAILY 09/27/25 09/28/25 History Allergies Allergy/AdvReac Type Severity Reaction Status Date / Time Sulfa (Sulfonamide Allergy Intermediate HIVES Verified 09/20/25 12:07 Antibiotics) ARB-Angiotensin Receptor AdvReac Severe syncope, Verified 09/20/25 12:07 Antagonist diarrhea metformin AdvReac Intermediate Diarrhea Verified 09/20/25 12:07 lisinopril AdvReac Mild COUGH Verified 09/20/25 12:07 Exam Vital Signs (past 8 hours): - 09/29/25 03:10 Pulse Rate 85 Respiratory Rate 15 Blood Pressure 130/77 Pulse Oximetry 95 Oxygen Flow Rate 0 Oxygen Delivery Method Room Air Oxygen Flow Rate 0 Objective Labs 09/29/25 04:44 09/29/25 04:44 Labs: Laboratory Results - last 24 hr 09/28/25 09/28/25 09/28/25 14:50 14:51 16:17 WBC 12.7 H RBC 4.32 Hgb 13.7 Hct 40.2 MCV 93.0 MCH 31.6 MCHC 34.0 RDW 13.1 Plt Count 341 Neut % (Auto) 83.8 H Lymph % (Auto) 8.2 L [place] % (Auto) 7.1 Eos % (Auto) 0.6 L Baso % (Auto) 0.3 Neut # (Auto) 03191 H Lymph # (Auto) 1000 L [place] # (Auto) 900 Eos # (Auto) 100 Baso # (Auto) 0 PT 13.2 H INR 1.2 APTT 29 Sodium 131 L Potassium 4.6 Chloride 93 L Carbon Dioxide 27 BUN 30 H Creatinine 0.71 Estimated GFR > 60 BUN/Creatinine Ratio 42.3 H Glucose 145 H POC Whole Bld Glucose 128 H Lactate Calcium 9.0 Magnesium 1.9 Total Bilirubin 1.3 AST 65 H ALT 79 H Alkaline Phosphatase 113 Troponin I Total Protein 6.6 Albumin 3.6 Globulin 3.0 Albumin/Globulin Ratio 1.2 Lipase 51 TSH Blood Type O Positive Antibody Screen Negative 09/28/25 09/28/25 09/29/25 20:10 20:40 04:44 WBC 15.7 H RBC 4.13 Hgb 12.9 Hct 37.9 MCV 91.6 MCH 31.2 MCHC 34.1 RDW 12.9 Plt Count 317 Neut % (Auto) 88.8 H Lymph % (Auto) 5.7 L [place] % (Auto) 5.3 Eos % (Auto) 0.0 L Baso % (Auto) 0.2 Neut # (Auto) 90572 H Lymph # (Auto) 900 L [place] # (Auto) 800 Eos # (Auto) 0 Baso # (Auto) 0 PT INR APTT Sodium 130 L Potassium 4.7 Chloride 98 Carbon Dioxide 24 BUN 23 H Creatinine 0.64 Estimated GFR > 60 BUN/Creatinine Ratio 35.9 H Glucose 131 H POC Whole Bld Glucose 137 H Lactate 1.6 Calcium 8.4 Magnesium Total Bilirubin AST ALT Alkaline Phosphatase Troponin I < 0.012 Total Protein Albumin Globulin Albumin/Globulin Ratio Lipase TSH 1.83 Blood Type Antibody Screen [facility] Medical History Microalbuminuria Incomplete emptying of bladder Self-catheterizes urinary bladder Mixed irritable bowel syndrome History of urinary tract infection Chronic pseudo-obstruction of colon Urinary retention Meningioma SBO (small bowel obstruction) Uncontrolled diabetes mellitus Venous telangiectasia of lower extremity House dust mite allergy Pollen allergy Edema of both lower legs Thumb laceration Thumb fracture Contusion of left thumb Green nails Obstructive sleep apnea hypopnea, moderate Acid reflux Diarrhea Esophagitis Syncope Shortness of breath on exertion Palpitations Dizziness Hyponatremia Hypomagnesemia Snoring Abnormal mammogram of right breast (~04/2020) Oral thrush Overweight (BMI 25.0-29.9) Angular cheilitis Onychomycosis Vulvitis Lichen sclerosus of female genitalia Vision disorder Mumps (~1949) Measles (~1949) Chicken pox (~1949) Hearing loss Frequent UTI Hypertension Hyperlipidemia Chronic vaginitis (04/01/16) Osteoarthritis of left hip (04/01/16) Edema of foot (11/01/15) Surgical History Hx of inguinal hernia repair History of left hip replacement Anesthesia Status post hernia repair (~1964) Family History Brother Age: 87 Detached retina Father Cancer Loud snoring Mother Hypertension Stroke Sister Diabetes mellitus Social History marital status: number of children: 1 household members: spouse lives independently: Yes occupational status: previously employed Tobacco & Substance Use Smoking Status: Never smoker alcohol intake: never substance use type: does not use Diet and Exercise eating out: rarely or never Type(s) of exercise: walking and bicycling frequency: 1-2 times per week duration: 45-60 minutes/day Assessment & Plan Time-Based Coding :: [TOTAL MINUTES] spent with patient and on the chart (including review of chart, obtaining history, exam, reviewing outside data, placing orders, documenting exam and treatment plan, and counseling patient) on [DATE].
[2025-09-29] MEDS: ONDANSETRON 4 MG/2 ML INJ IV ×2 (08:03→20:24)
--- NOTE | 2025-09-29 10:09 | PM.PN.IH.1 ---
Subjective Subjective Date Patient Seen: 09/29/25 Time Patient Seen: 10:09 Interval history: Betsy reports that she had confusion and delirium overnight and did not sleep well. She has had the expected amount of abdominal incisional pain. She has vomited about four times. Exam Vital Signs (past 8 hours): - 09/29/25 03:10 09/29/25 07:10 Temperature 98.7 F Pulse Rate 85 92 H Respiratory Rate 15 18 Blood Pressure 130/77 142/83 H Pulse Oximetry 95 95 Oxygen Flow Rate 0 Oxygen Delivery Method Room Air Oxygen Flow Rate 0 Narrative Exam Narrative: Abdomen is soft, distended Drain output is serosanguineous Objective Labs 09/29/25 04:44 09/29/25 04:44 Labs: Laboratory Results - last 24 hr 09/28/25 09/28/25 09/28/25 14:50 14:51 16:17 WBC 12.7 H RBC 4.32 Hgb 13.7 Hct 40.2 MCV 93.0 MCH 31.6 MCHC 34.0 RDW 13.1 Plt Count 341 Neut % (Auto) 83.8 H Lymph % (Auto) 8.2 L [place] % (Auto) 7.1 Eos % (Auto) 0.6 L Baso % (Auto) 0.3 Neut # (Auto) 25010 H Lymph # (Auto) 1000 L [place] # (Auto) 900 Eos # (Auto) 100 Baso # (Auto) 0 PT 13.2 H INR 1.2 APTT 29 Sodium 131 L Potassium 4.6 Chloride 93 L Carbon Dioxide 27 BUN 30 H Creatinine 0.71 Estimated GFR > 60 BUN/Creatinine Ratio 42.3 H Glucose 145 H POC Whole Bld Glucose 128 H Lactate Calcium 9.0 Magnesium 1.9 Total Bilirubin 1.3 AST 65 H ALT 79 H Alkaline Phosphatase 113 Troponin I Total Protein 6.6 Albumin 3.6 Globulin 3.0 Albumin/Globulin Ratio 1.2 Lipase 51 TSH Blood Type O Positive Antibody Screen Negative 09/28/25 09/28/25 09/29/25 20:10 20:40 04:44 WBC 15.7 H RBC 4.13 Hgb 12.9 Hct 37.9 MCV 91.6 MCH 31.2 MCHC 34.1 RDW 12.9 Plt Count 317 Neut % (Auto) 88.8 H Lymph % (Auto) 5.7 L [place] % (Auto) 5.3 Eos % (Auto) 0.0 L Baso % (Auto) 0.2 Neut # (Auto) 62505 H Lymph # (Auto) 900 L [place] # (Auto) 800 Eos # (Auto) 0 Baso # (Auto) 0 PT INR APTT Sodium 130 L Potassium 4.7 Chloride 98 Carbon Dioxide 24 BUN 23 H Creatinine 0.64 Estimated GFR > 60 BUN/Creatinine Ratio 35.9 H Glucose 131 H POC Whole Bld Glucose 137 H Lactate 1.6 Calcium 8.4 Magnesium Total Bilirubin AST ALT Alkaline Phosphatase Troponin I < 0.012 Total Protein Albumin Globulin Albumin/Globulin Ratio Lipase TSH 1.83 Blood Type Antibody Screen 09/29/25 07:30 WBC RBC Hgb Hct MCV MCH MCHC RDW Plt Count Neut % (Auto) Lymph % (Auto) [place] % (Auto) Eos % (Auto) Baso % (Auto) Neut # (Auto) Lymph # (Auto) [place] # (Auto) Eos # (Auto) Baso # (Auto) PT INR APTT Sodium Potassium Chloride Carbon Dioxide BUN Creatinine Estimated GFR BUN/Creatinine Ratio Glucose POC Whole Bld Glucose 118 H Lactate Calcium Magnesium Total Bilirubin AST ALT Alkaline Phosphatase Troponin I Total Protein Albumin Globulin Albumin/Globulin Ratio Lipase TSH Blood Type Antibody Screen [facility] Medical History Microalbuminuria Incomplete emptying of bladder Self-catheterizes urinary bladder Mixed irritable bowel syndrome History of urinary tract infection Chronic pseudo-obstruction of colon Urinary retention Meningioma SBO (small bowel obstruction) Uncontrolled diabetes mellitus Venous telangiectasia of lower extremity House dust mite allergy Pollen allergy Edema of both lower legs Thumb laceration Thumb fracture Contusion of left thumb Green nails Obstructive sleep apnea hypopnea, moderate Acid reflux Diarrhea Esophagitis Syncope Shortness of breath on exertion Palpitations Dizziness Hyponatremia Hypomagnesemia Snoring Abnormal mammogram of right breast (~04/2020) Oral thrush Overweight (BMI 25.0-29.9) Angular cheilitis Onychomycosis Vulvitis Lichen sclerosus of female genitalia Vision disorder Mumps (~1950) Measles (~1949) Chicken pox (~1949) Hearing loss Frequent UTI Hypertension Hyperlipidemia Chronic vaginitis (04/01/16) Osteoarthritis of left hip (04/01/16) Edema of foot (11/01/15) Surgical History Hx of inguinal hernia repair History of left hip replacement Anesthesia Status post hernia repair (~1965) Family History Brother Age: 87 Detached retina Father Cancer Loud snoring Mother Hypertension Stroke Sister Diabetes mellitus Social History marital status: number of children: 1 household members: spouse lives independently: Yes occupational status: previously employed Smoking Status: Never smoker alcohol intake: never substance use type: does not use eating out: rarely or never Type(s) of exercise: walking and bicycling frequency: 1-2 times per week duration: 45-60 minutes/day Assessment & Plan Assessment and plan (1) Perforated viscus: Status: Acute Plan Postop day 1 from exploratory laparotomy, washout, end colostomy. Will add Zyprexa as needed for nighttime delirium Continue Zosyn Lovenox for DVT prophylaxis Time-Based Coding :: [TOTAL MINUTES] spent with patient and on the chart (including review of chart, obtaining history, exam, reviewing outside data, placing orders, documenting exam and treatment plan, and counseling patient) on [DATE]. Quality VTE Deep Vein Thrombosis/Pulmonary Embolism Present on Admission: No PROFEE Supervisor Shipping Room Document charge(s): No
[2025-09-29] MEDS: ENOXAPARIN 40 MG/0.4 ML SYRINGE SUBCUT (12:00)
[2025-09-29] MEDS: LACTATED RINGERS 1,000 ML 100 ML IV (14:37)
--- NOTE | 2025-09-29 15:11 | PC.NURSE ---
Pt resting at interval T/O morning Sitting in chair this afternoon IVF infusing as per orders. ECHO was completed. Maria Del Carmen (ostomy R N) here to teach. Dsg on abdomen CDI, ADÁN inact F/C intact/patent clear urine. Tele SR per ICU staff. Call light w/in reach, pt calls appropriately for needs. Continue w/plan of care.
--- NOTE | 2025-09-29 16:33 | PC.RNWOUND ---
Ostomy Nurse Consult Note. Patient awake and alert sitting in the chair, her is with her. She said that she just vomited. Myself and Diya her nurse saw the emesis bags with green bile colored fluid, approx 75cc. Patient states she feels much better after getting sick. Patient wanted to continue with ostomy teaching. I removed the ostomy appliance because it was coming off. Stoma is edematous, pink, 45mm oval, moist, above the skin level 1.2mm. Mucus on stoma and old blood clots. Cleaned stoma and peristomal skin. Peristomal skin intact. Mid-line incision dressing dry and intact. I did not visualize the incision line. Picture of stoma taken. Placed a barrier ring and a Coloplast two piece appliance: #[id number] flat wafer and pouch # [id number]. Gave patient the [employer] New Patient Guide and the [employer] [employer] New Patient kit. Discussed some anatomy with the patient and her and gave her materials to read. Patient and live in their own condo in [facility], [place]. I recommend that they discharge with Home Health Nursing and follow up with me at the [facility] upon discharge. I will return tomorrow morning at 11:00 to do more patient education with Betsy and her Handy.
[2025-09-29] MEDS: ATORVASTATIN 20 MG TABLET 40 MG PO (20:11)
[2025-09-30] MEDS: ONDANSETRON 4 MG/2 ML INJ IV ×3 (04:55→20:36)
[2025-09-30] MEDS: LACTATED RINGERS 1,000 ML 100 ML IV (04:56)
[2025-09-30 06:00] VITALS: BP 159/84; PULSE 91; RESP 16; TEMP 37; O2SAT 95
--- NOTE | 2025-09-30 07:36 | PM.PN.IH.1 ---
Subjective Subjective Date Patient Seen: 09/30/25 Time Patient Seen: 07:37 Interval history: Betsy is confused this morning. She thinks she is in an AI experiment. She denies pain. Exam Vital Signs (past 8 hours): - 09/30/25 06:00 Temperature 98.6 F Pulse Rate 91 H Respiratory Rate 16 Blood Pressure 159/84 H Pulse Oximetry 95 Oxygen Flow Rate 0 Oxygen Delivery Method Room Air Oxygen Flow Rate 0 Narrative Exam Narrative: Abdomen is soft, distneded, nontender Colostomy is well perfused, no output Drain output is serosanguinous Objective Labs 09/29/25 04:44 09/29/25 04:44 Labs: Laboratory Results - last 24 hr 09/29/25 09/29/25 09/29/25 11:24 16:42 20:38 POC Whole Bld Glucose 128 H 137 H 128 H PFSH Medical History Microalbuminuria Incomplete emptying of bladder Self-catheterizes urinary bladder Mixed irritable bowel syndrome History of urinary tract infection Chronic pseudo-obstruction of colon Urinary retention Meningioma SBO (small bowel obstruction) Uncontrolled diabetes mellitus Venous telangiectasia of lower extremity House dust mite allergy Pollen allergy Edema of both lower legs Thumb laceration Thumb fracture Contusion of left thumb Green nails Obstructive sleep apnea hypopnea, moderate Acid reflux Diarrhea Esophagitis Syncope Shortness of breath on exertion Palpitations Dizziness Hyponatremia Hypomagnesemia Snoring Abnormal mammogram of right breast (~04/2020) Oral thrush Overweight (BMI 25.0-29.9) Angular cheilitis Onychomycosis Vulvitis Lichen sclerosus of female genitalia Vision disorder Mumps (~1950) Measles (~1949) Chicken pox (~1949) Hearing loss Frequent UTI Hypertension Hyperlipidemia Chronic vaginitis (04/01/16) Osteoarthritis of left hip (04/01/16) Edema of foot (11/01/15) Surgical History Hx of inguinal hernia repair History of left hip replacement Anesthesia Status post hernia repair (~1964) Family History Brother Age: 87 Detached retina Father Cancer Loud snoring Mother Hypertension Stroke Sister Diabetes mellitus Social History marital status: number of children: 1 household members: spouse lives independently: Yes occupational status: previously employed Smoking Status: Never smoker alcohol intake: never substance use type: does not use eating out: rarely or never Type(s) of exercise: walking and bicycling frequency: 1-2 times per week duration: 45-60 minutes/day Assessment & Plan Assessment and plan (1) Perforated viscus: Status: Acute Plan Continue clears until there is colostomy output Treat dahlia arreola Time-Based Coding :: [TOTAL MINUTES] spent with patient and on the chart (including review of chart, obtaining history, exam, reviewing outside data, placing orders, documenting exam and treatment plan, and counseling patient) on [DATE]. Quality VTE Deep Vein Thrombosis/Pulmonary Embolism Present on Admission: No IH PROFEE Grease Packer Document charge(s): No
[2025-09-30] MEDS: ENOXAPARIN 40 MG/0.4 ML SYRINGE SUBCUT (09:20)
[2025-09-30] MEDS: ACETAMINOPHEN 325 MG TABLET 650 MG PO ×2 (09:20→14:18)
[2025-09-30 11:00] VITALS: BP 157/90; PULSE 83; RESP 18; TEMP 37.2; O2SAT 97
--- NOTE | 2025-09-30 12:04 | PC.RNWOUND ---
Ostomy Nurse Consult Note Patient states that she doesn't want to do any teaching today because she had a really bad night. Her , Handy is here. I asked if I could see patients stoma. Appliance is in place, no output. Stoma looks moist, edematous. Patient went back to sleep and I spoke with Handy. I gave Handy the Coloplast instruction guide that explains via written word and photos on how to empty and change the appliance. We discussed discharge planning. I recommend Home Health Services and follow up at the [facility]. Handy is very open to the idea of having a home health nurse upon discharge. Spoke with Myrna, Medical Coding Manager about my recommendation for Home Health Services upon discharge and follow up with me at the [facility]. I will return next week to continue with patient education regarding ostomy care.
--- NOTE | 2025-09-30 12:26 | CM.DPC ---
ANA spoke with statistical modeler Maria Del Carmen. Maria Del Carmen requested that DCP make Outpt apptmt with the Wound [facility] prior to Patient's discharge. Wound Clinic P. [phone]. Also send HH Referral prior to DC.
--- NOTE | 2025-09-30 13:47 | DIET.PN1 ---
Dietary Progress Note Assessment: Consulted for pt with colostomy Pt had a tough night, is tired right now. Provided handout in conjunction with handouts the operations agent has provided pt. When pt's diet advances, will provide Ensure protein supplementation BID-TID based on PO intakes. Ht: 172.72 cm Wt: 67 kg BMI: 22.4 Last BM: 09/30/25 (09/30/25 08:00) MNA: 10 Vince Score: 18 Diet: 09/28/25 Dinner Clear Liquid Diet Diet Modifications: Labs: RBC 4.13 X10^6/uL (4.0-5.2) 09/29/25 04:44 Hgb 12.9 g/dL (12.0-16.0) 09/29/25 04:44 Hct 37.9 % (36-46) 09/29/25 04:44 Creatinine 0.64 mg/dL (0.52-1.04) 09/29/25 04:44 Lactate 1.6 mmol/L (0.7-2.1) 09/28/25 20:40 Electronically Signed by: Nneka Storm 09/30/25 13:47 Clinical Dietitian [address] [id number]
[2025-09-30 14:45] VITALS: BP 148/94; PULSE 87; RESP 16; TEMP 36.5; O2SAT 95
[2025-09-30 15:35] VITALS: BP 158/76; PULSE 87; RESP 18; TEMP 36.9; O2SAT 96
[2025-09-30] MEDS: PIPERACILLIN/TAZO 3.375 GM in SODIUM CHLORIDE 0.9% 100 ML IV ×2 (16:08→23:18)
[2025-09-30] MEDS: SODIUM CHLORIDE 0.9% 1,000 ML 100 ML IV (16:08)
--- NOTE | 2025-09-30 16:27 | PM.PN.IH.1 ---
Subjective Subjective Date Patient Seen: 09/30/25 Time Patient Seen: 08:30 Interval history: HPI: 84-year-old male 8 days postoperative correction of colon volvulus developed anastomotic leak peritonitis was brought back to the emergency room in the evening of 09/28. Preoperatively patient developed an atrial tachycardia/arrhythmia interpreted as atrial fibrillation. The nocturnal offsite tele-hospitalist was consulted. Telemetry was interpreted as atrial fibrillation. Electrocardiogram was performed which demonstrated sinus tachycardia rate of 118 with first-degree AV block with OH interval of 240, right anterior hemiblock, and QTC prolongation with interval of 616. Troponin was less than 0.012 interpreted as negative. Recorded vital signs were stable the lowest blood pressure 104/78 in the most recent blood pressure 130/77. Review of telemetry records Hospital course: 09/29: Doing well postoperatively no complaints of pain started diet per surgery. 09/30: Mildly confused this morning but orientating appropriate on my evaluation. No specific complaints. Exam Vital Signs (past 8 hours): - 09/30/25 11:00 09/30/25 14:45 Temperature 98.9 F 97.7 F Pulse Rate 83 87 Respiratory Rate 18 16 Blood Pressure 157/90 H 148/94 H Pulse Oximetry 97 95 Oxygen Delivery Method Room Air Oxygen Flow Rate 0 Narrative Exam Narrative: No acute distress HEENT unremarkable Heart rate and rhythm regular with premature beats and pauses (not irregularly irregular) Lungs with bibasilar rales Extremities no edema Objective Labs 09/29/25 04:44 09/29/25 04:44 Labs: Laboratory Results - last 24 hr 09/29/25 09/29/25 16:42 20:38 POC Whole Bld Glucose 137 H 128 H PFSH Medical History Abnormal mammogram of right breast (~04/2020) Acid reflux Angular cheilitis Chicken pox (~1949) Chronic pseudo-obstruction of colon Chronic vaginitis (04/01/16) Contusion of left thumb Diarrhea Dizziness Edema of both lower legs Edema of foot (11/01/15) Esophagitis Frequent UTI Green nails Hearing loss History of urinary tract infection House dust mite allergy Hyperlipidemia Hypertension Hypomagnesemia Hyponatremia Incomplete emptying of bladder Lichen sclerosus of female genitalia Measles (~1949) Meningioma Microalbuminuria Mixed irritable bowel syndrome Mumps (~1950) Obstructive sleep apnea hypopnea, moderate Onychomycosis Oral thrush Osteoarthritis of left hip (04/01/16) Overweight (BMI 25.0-29.9) Palpitations Pollen allergy SBO (small bowel obstruction) Self-catheterizes urinary bladder Shortness of breath on exertion Snoring Syncope Thumb fracture Thumb laceration Uncontrolled diabetes mellitus Urinary retention Venous telangiectasia of lower extremity Vision disorder Vulvitis Surgical History Anesthesia History of left hip replacement Hx of inguinal hernia repair Status post hernia repair (~1965) Family History Brother Age: 87 Detached retina Father Cancer Loud snoring Mother Hypertension Stroke Sister Diabetes mellitus Social History marital status: number of children: 1 household members: spouse lives independently: Yes occupational status: previously employed Smoking Status: Never smoker alcohol intake: never substance use type: does not use eating out: rarely or never Type(s) of exercise: walking and bicycling frequency: 1-2 times per week duration: 45-60 minutes/day Assessment & Plan Assessment & Plan narrative: Multi atrial tachycardia (no findings of atrial fibrillation and review of telemetry strips or EKGs) Continue cardiac telemetry No intervention for MAT indicated Echocardiogram normal QT prolongation: Magnesium normal Avoid medications or combinations that further QT prolongation Continue telemetry Anastomotic leak status post colostomy Management per surgery stewardship DVT prophylaxis: Per surgery Code status: Full code blue Disposition: Inpatient per surgery (attending) discretion Quality VTE Deep Vein Thrombosis/Pulmonary Embolism Present on Admission: No IH PROFEE Hot Molder Document charge(s): No Charge Codes Subsequent inpatient/observation care: 84118
[2025-09-30 16:28] LABS: Add Manual Diff / Slide Review NO; Hematocrit 36.9 % (36-46); Hemoglobin 12.9 g/dL (12.0-16.0); Lymphocytes Absolute Auto 1100 /uL (1100-4500); Mean Corpuscular HGB Conc 34.9 % (30-36); Mean Corpuscular Hemoglobin 32.2 PG (26-34); Mean Corpuscular Volume 92.2 fL (80-100); Platelet Count 339 X10^3/uL (150-400)
[2025-09-30 16:43] LABS: Alanine Aminotransferase 34 IU/L (<35); Albumin 2.9 g/dL (3.5-5.0); Albumin Globulin Ratio 1.1 (1.0-2.8); Alkaline Phosphatase 82 U/L (38-126); Blood Urea Nitrogen 22 mg/dL (7-17); Calcium 8.1 mg/dL (8.4-10.2); Carbon Dioxide 23 mmol/L (22-32); Chloride 97 mmol/L (98-107); Estimated Glomerular Filt Rate > 60 mL/min (>60); Globulin 2.7 g/dL (1.7-4.1); Glucose 111 mg/dL (70-99); HEMOLYSIS < 15 (0-50); Lactate (Lactic Acid) 1.0 mmol/L (0.7-2.1); Magnesium 1.7 mg/dL (1.6-2.3); Potassium 3.9 mmol/L (3.4-5.1); Sodium 129 mmol/L (137-145); Total Protein 5.6 g/dL (6.3-8.2)
[2025-09-30] MEDS: ATORVASTATIN 20 MG TABLET 40 MG PO (20:38)
[2025-09-30 20:42] VITALS: BP 131/76; PULSE 83; RESP 17; TEMP 37; O2SAT 98
[2025-10-01] VITALS: BP 149/72; PULSE 87; RESP 16; TEMP 37; O2SAT 95
[2025-10-01 04:00] VITALS: BP 148/75; PULSE 84; RESP 16; TEMP 37.1; O2SAT 96
[2025-10-01] MEDS: SODIUM CHLORIDE 0.9% 1,000 ML 100 ML IV (04:55)
[2025-10-01 05:58] LABS: Add Manual Diff / Slide Review NO; Hematocrit 34.3 % (36-46); Hemoglobin 12.0 g/dL (12.0-16.0); Lymphocytes Absolute Auto 1200 /uL (1100-4500); Mean Corpuscular HGB Conc 35.1 % (30-36); Mean Corpuscular Hemoglobin 32.3 PG (26-34); Mean Corpuscular Volume 92.2 fL (80-100); Platelet Count 292 X10^3/uL (150-400)
[2025-10-01 06:09] LABS: Lactate (Lactic Acid) 0.6 mmol/L (0.7-2.1)
[2025-10-01 06:11] LABS: Alanine Aminotransferase 32 IU/L (<35); Albumin 2.5 g/dL (3.5-5.0); Albumin Globulin Ratio 1.0 (1.0-2.8); Alkaline Phosphatase 78 U/L (38-126); Blood Urea Nitrogen 20 mg/dL (7-17); Calcium 7.5 mg/dL (8.4-10.2); Carbon Dioxide 25 mmol/L (22-32); Chloride 100 mmol/L (98-107); Estimated Glomerular Filt Rate > 60 mL/min (>60); Globulin 2.4 g/dL (1.7-4.1); Glucose 82 mg/dL (70-99); HEMOLYSIS < 15 (0-50); Magnesium 1.7 mg/dL (1.6-2.3); Potassium 3.8 mmol/L (3.4-5.1); Sodium 130 mmol/L (137-145); Total Protein 4.9 g/dL (6.3-8.2)
[2025-10-01] MEDS: PIPERACILLIN/TAZO 3.375 GM in SODIUM CHLORIDE 0.9% 100 ML IV ×3 (06:53→23:20)
[2025-10-01 08:00] VITALS: BP 138/73; PULSE 82; RESP 17; TEMP 36.9; O2SAT 96
[2025-10-01] MEDS: MAGNESIUM CHLORIDE 64 MG TABLET 128 MG PO (09:07)
[2025-10-01] MEDS: ACETAMINOPHEN 325 MG TABLET 650 MG PO ×2 (09:07→17:25)
[2025-10-01] MEDS: ENOXAPARIN 40 MG/0.4 ML SYRINGE SUBCUT (09:08)
--- NOTE | 2025-10-01 09:10 | PM.PN.IH.1 ---
Subjective Subjective Date Patient Seen: 10/01/25 Time Patient Seen: 09:12 Interval history: 84-year-old female status post robotic sigmoid colectomy (POD #10) with subsequent end colostomy and Lashon pouch for anastomotic leak (POD #3) Awake and alert, sitting up in bed. Notes pain is well controlled. Reports mild distention. States ?my back is working?, noting there is stool and air in the bag. Worked with PT yesterday. Tolerating clear liquid diet, however, somewhat gradually she does not like the taste. Has remained afebrile. Evaluated per Medicine yesterday for potential AFib. Patient noted only to be having episodes of sinus tachycardia. Leukocytosis resolved. Exam Vital Signs (past 8 hours): - 10/01/25 04:00 10/01/25 08:00 Temperature 98.7 F 98.5 F Pulse Rate 84 82 Respiratory Rate 16 17 Blood Pressure 148/75 H 138/73 Pulse Oximetry 96 96 Oxygen Flow Rate 0 0 Oxygen Delivery Method Room Air Oxygen Flow Rate 0 Narrative Exam Narrative: Awake and alert 4; very talkative, but appropriate. No confusion noted. Regular rate and rhythm at 91 Respirations clear to auscultation bilaterally; good chest wall excursion Abdomen mildly distended with mild incisional tenderness; bowel sounds x4 quadrants Ostomy pink and healthy in appearance; liquid stool and a small amount of gas noted within the ostomy bag Incisions clean dry and intact; no erythema appreciated Moves all extremities x4 Objective Labs 10/01/25 05:40 10/01/25 05:40 Labs: Laboratory Results - last 24 hr 09/30/25 10/01/25 16:20 05:40 WBC 13.0 H 10.3 RBC 4.00 3.72 L Hgb 12.9 12.0 Hct 36.9 34.3 L MCV 92.2 92.2 MCH 32.2 32.3 MCHC 34.9 35.1 RDW 13.0 12.9 Plt Count 339 292 Neut % (Auto) 85.0 H 80.9 H Lymph % (Auto) 8.7 L 11.3 L [place] % (Auto) 5.7 6.5 Eos % (Auto) 0.2 L 1.0 L Baso % (Auto) 0.4 0.3 Neut # (Auto) 52168 H 8400 H Lymph # (Auto) 1100 1200 [place] # (Auto) 700 700 Eos # (Auto) 0 100 Baso # (Auto) 0 0 Sodium 129 L 130 L Potassium 3.9 3.8 Chloride 97 L 100 Carbon Dioxide 23 25 BUN 22 H 20 H Creatinine 0.56 0.56 Estimated GFR > 60 > 60 BUN/Creatinine Ratio 39.3 H 35.7 H Glucose 111 H 82 Lactate 1.0 0.6 L Calcium 8.1 L 7.5 L Magnesium 1.7 1.7 Total Bilirubin 1.1 0.8 AST 29 37 H ALT 34 32 Alkaline Phosphatase 82 78 Total Protein 5.6 L 4.9 L Albumin 2.9 L 2.5 L Globulin 2.7 2.4 Albumin/Globulin Ratio 1.1 1.0 PFSH Medical History Abnormal mammogram of right breast (~04/2020) Acid reflux Angular cheilitis Chicken pox (~1949) Chronic pseudo-obstruction of colon Chronic vaginitis (04/01/16) Contusion of left thumb Diarrhea Dizziness Edema of both lower legs Edema of foot (11/01/15) Esophagitis Frequent UTI Green nails Hearing loss History of urinary tract infection House dust mite allergy Hyperlipidemia Hypertension Hypomagnesemia Hyponatremia Incomplete emptying of bladder Lichen sclerosus of female genitalia Measles (~1949) Meningioma Microalbuminuria Mixed irritable bowel syndrome Mumps (~1949) Obstructive sleep apnea hypopnea, moderate Onychomycosis Oral thrush Osteoarthritis of left hip (04/01/16) Overweight (BMI 25.0-29.9) Palpitations Pollen allergy SBO (small bowel obstruction) Self-catheterizes urinary bladder Shortness of breath on exertion Snoring Syncope Thumb fracture Thumb laceration Uncontrolled diabetes mellitus Urinary retention Venous telangiectasia of lower extremity Vision disorder Vulvitis Surgical History Anesthesia History of left hip replacement Hx of inguinal hernia repair Status post hernia repair (~1964) Family History Brother Age: 87 Detached retina Father Cancer Loud snoring Mother Hypertension Stroke Sister Diabetes mellitus Social History marital status: number of children: 1 household members: spouse lives independently: Yes occupational status: previously employed Smoking Status: Never smoker alcohol intake: never substance use type: does not use eating out: rarely or never Type(s) of exercise: walking and bicycling frequency: 1-2 times per week duration: 45-60 minutes/day Assessment & Plan Assessment & Plan narrative: 84-year-old female postop day 3. Status post placement of end colostomy with Lashon pouch -will advance diet full liquid diet -continue current antimicrobial -patient encouraged to sit up in the chair and utilize incentive spirometry -given that patient has to self cath at home 3 times daily in order to void, we will leave Dia in place. I do not feel the patient is capable of self catheterization at this time. -repeat lab in a.m. -continue physical therapy Time-Based Coding :: [TOTAL MINUTES] spent with patient and on the chart (including review of chart, obtaining history, exam, reviewing outside data, placing orders, documenting exam and treatment plan, and counseling patient) on [DATE]. Quality VTE Deep Vein Thrombosis/Pulmonary Embolism Present on Admission: No PROFEE Car Unloader Document charge(s): No Charge Codes Subsequent inpatient/observation care: [id number]
--- NOTE | 2025-10-01 11:55 | PM.PN.IH.1 ---
Subjective Subjective Date Patient Seen: 10/01/25 Time Patient Seen: 08:05 Interval history: HPI: 84-year-old male 8 days postoperative correction of colon volvulus developed anastomotic leak peritonitis was brought back to the emergency room in the evening of 09/28. Preoperatively patient developed an atrial tachycardia/arrhythmia interpreted as atrial fibrillation. The nocturnal offsite tele-hospitalist was consulted. Telemetry was interpreted as atrial fibrillation. Electrocardiogram was performed which demonstrated sinus tachycardia rate of 118 with first-degree AV block with [place] interval of 240, right anterior hemiblock, and QTC prolongation with interval of 616. Troponin was less than 0.012 interpreted as negative. Recorded vital signs were stable the lowest blood pressure 104/78 in the most recent blood pressure 130/77. Review of telemetry records Hospital course: 09/29: Doing well postoperatively no complaints of pain started diet per surgery. 09/30: Mildly confused this morning but orientating appropriate on my evaluation. No specific complaints. 10/01: She is alert, oriented, without complaints. She was able to get up yesterday and walk a few steps. No telemetry events noted Exam Vital Signs (past 8 hours): - 10/01/25 04:00 10/01/25 08:00 Temperature 98.7 F 98.5 F Pulse Rate 84 82 Respiratory Rate 16 17 Blood Pressure 148/75 H 138/73 Pulse Oximetry 96 96 Oxygen Flow Rate 0 0 Oxygen Delivery Method Room Air Oxygen Flow Rate 0 Narrative Exam Narrative: No acute distress HEENT unremarkable Heart rate and rhythm regular with premature beats and pauses (not irregularly irregular) Lungs with bibasilar rales Extremities no edema Objective Labs 10/01/25 05:40 10/01/25 05:40 Labs: Laboratory Results - last 24 hr 09/30/25 10/01/25 16:20 05:40 WBC 13.0 H 10.3 RBC 4.00 3.72 L Hgb 12.9 12.0 Hct 36.9 34.3 L MCV 92.2 92.2 MCH 32.2 32.3 MCHC 34.9 35.1 RDW 13.0 12.9 Plt Count 339 292 Neut % (Auto) 85.0 H 80.9 H Lymph % (Auto) 8.7 L 11.3 L [place] % (Auto) 5.7 6.5 Eos % (Auto) 0.2 L 1.0 L Baso % (Auto) 0.4 0.3 Neut # (Auto) 50537 H 8400 H Lymph # (Auto) 1100 1200 [place] # (Auto) 700 700 Eos # (Auto) 0 100 Baso # (Auto) 0 0 Sodium 129 L 130 L Potassium 3.9 3.8 Chloride 97 L 100 Carbon Dioxide 23 25 BUN 22 H 20 H Creatinine 0.56 0.56 Estimated GFR > 60 > 60 BUN/Creatinine Ratio 39.3 H 35.7 H Glucose 111 H 82 Lactate 1.0 0.6 L Calcium 8.1 L 7.5 L Magnesium 1.7 1.7 Total Bilirubin 1.1 0.8 AST 29 37 H ALT 34 32 Alkaline Phosphatase 82 78 Total Protein 5.6 L 4.9 L Albumin 2.9 L 2.5 L Globulin 2.7 2.4 Albumin/Globulin Ratio 1.1 1.0 PFSH Medical History Abnormal mammogram of right breast (~04/2020) Acid reflux Angular cheilitis Chicken pox (~1949) Chronic pseudo-obstruction of colon Chronic vaginitis (04/01/16) Contusion of left thumb Diarrhea Dizziness Edema of both lower legs Edema of foot (11/01/15) Esophagitis Frequent UTI Green nails Hearing loss History of urinary tract infection House dust mite allergy Hyperlipidemia Hypertension Hypomagnesemia Hyponatremia Incomplete emptying of bladder Lichen sclerosus of female genitalia Measles (~1949) Meningioma Microalbuminuria Mixed irritable bowel syndrome Mumps (~1949) Obstructive sleep apnea hypopnea, moderate Onychomycosis Oral thrush Osteoarthritis of left hip (04/01/16) Overweight (BMI 25.0-29.9) Palpitations Pollen allergy SBO (small bowel obstruction) Self-catheterizes urinary bladder Shortness of breath on exertion Snoring Syncope Thumb fracture Thumb laceration Uncontrolled diabetes mellitus Urinary retention Venous telangiectasia of lower extremity Vision disorder Vulvitis Surgical History Anesthesia History of left hip replacement Hx of inguinal hernia repair Status post hernia repair (~1964) Family History Brother Age: 87 Detached retina Father Cancer Loud snoring Mother Hypertension Stroke Sister Diabetes mellitus Social History marital status: number of children: 1 household members: spouse lives independently: Yes occupational status: previously employed Smoking Status: Never smoker alcohol intake: never substance use type: does not use eating out: rarely or never Type(s) of exercise: walking and bicycling frequency: 1-2 times per week duration: 45-60 minutes/day Assessment & Plan Assessment & Plan narrative: Multi atrial tachycardia (no findings of atrial fibrillation and review of telemetry strips or EKGs) Continue cardiac telemetry No intervention for MAT indicated Echocardiogram normal QT prolongation: Magnesium normal Avoid medications or combinations that further QT prolongation Continue telemetry Anastomotic leak status post colostomy Management per surgery stewardship DVT prophylaxis: Per surgery Code status: Full code blue Disposition: Inpatient per surgery (attending) discretion Quality VTE Deep Vein Thrombosis/Pulmonary Embolism Present on Admission: No IH PROFEE Public Speaking Teacher Document charge(s): No Charge Codes Subsequent inpatient/observation care: [id number]
--- NOTE | 2025-10-01 12:35 | CM.DPC ---
PT eval pending for HH vs SNF placement.
--- NOTE | 2025-10-01 13:55 | PT.IIE ---
Current Diagnoses Other specified symptoms and signs involving the digestive system and abdomen (09/28/25) Surgery Performed Operation Date: 09/28/25 16:30 Actual Procedures p Exploratory Laparotomy, Washout, Colostomy - Harry Roche MD Surgical History (Last Reviewed 09/30/25 @ 16:29 by Mathew Rueda MD) Anesthesia History of left hip replacement Hx of inguinal hernia repair Status post hernia repair (~1964) Medical History (Last Reviewed 09/30/25 @ 16:29 by Mathew Rueda MD) Abnormal mammogram of right breast (~04/2020) Acid reflux Angular cheilitis Chicken pox (~1949) Chronic pseudo-obstruction of colon Chronic vaginitis (04/01/16) Contusion of left thumb Diarrhea Dizziness Edema of both lower legs Edema of foot (11/01/15) Esophagitis Frequent UTI Green nails Hearing loss History of urinary tract infection House dust mite allergy Hyperlipidemia Hypertension Hypomagnesemia Hyponatremia Incomplete emptying of bladder Lichen sclerosus of female genitalia Measles (~1949) Meningioma Microalbuminuria Mixed irritable bowel syndrome Mumps (~1949) Obstructive sleep apnea hypopnea, moderate Onychomycosis Oral thrush Osteoarthritis of left hip (04/01/16) Overweight (BMI 25.0-29.9) Palpitations Pollen allergy SBO (small bowel obstruction) Self-catheterizes urinary bladder Shortness of breath on exertion Snoring Syncope Thumb fracture Thumb laceration Uncontrolled diabetes mellitus Urinary retention Venous telangiectasia of lower extremity Vision disorder Vulvitis Physical Therapy Inpatient Evaluation/Re-Eval M1 PT IP Prior Functional Status Start: 10/01/25 16:51 Freq: NEEDED Status: Active Protocol: Document 10/01/25 13:55 AB (Rec: 10/01/25 17:12 AB Desktop) Medical Review Prior Functional Status Medical History Yes Reviewed Communication able to make needs known; [place] Mobility and Gait pt was just hospitalized 09/17/25 thru 09/26/25 for sigmoid volvulus s/p colectomy. pt was mod I with all mobilities and ambulation without AD but uses a FWW only at night when she uses the toilet. pt d/c home afterwards and has to go back to the hospital and now admitted for bowel perforation s/p ex-lap. pt stated that she was not able to move or ambulate when she went home at that time Social History Household Members spouse Living Arrangements Apartment/Condo Number of Floors ( Two Floors Floors) Number of Stairs To pt plans to stay on the main level of the house without Enter/Railing? steps to follow Home Environment High Toilet,Walk in Shower Home Equipment Front Wheel Walker,Shower Seat without Backrest,Hand Held Shower,Grab Bars In Shower Additional Social spouse has limited capabilities to assist pt due to his History Comment own mobility difficulties (spouse uses a SPC for ambulation) pt has a recliner that she can sleep on if needed M2 PT-IP Current Condition Start: 10/01/25 16:51 Freq: NEEDED Status: Active Protocol: Document 10/01/25 13:55 AB (Rec: 10/01/25 17:12 AB Desktop) Physical Therapy Current Condition Current Condition Evaluation Date 10/01/25 Treatment Diagnosis bowel perforation s/p ex-lap; difficulty in walking Onset Date 09/28/25 M3 PT-IP Subjective Start: 10/01/25 16:51 Freq: NEEDED Status: Active Protocol: Document 10/01/25 13:55 AB (Rec: 10/01/25 17:12 AB Desktop) Subjective Physical Therapy Visit Type Type Initial Evaluation Visit Start Time 13:55 Visit Stop Time 15:10 Number of INFORMATION TECHNOLOGY PROGRAM MANAGER Visits 0 Physical Therapy Visit Comments Patient Comments agreeable to do PT Therapy Pain Assessment Pain When Pain Assessed At Rest Pain Present Pain Present Pain Reported Location Abdomen Intensity 2 Scale Used Numeric (0 - 10) Description Pressure Pain Management Distraction,Modification of Treatment,Re-positioning, Techniques Timing of Activity with Medications M4 PT-IP Mobility and Gait Start: 10/01/25 16:51 Freq: NEEDED Status: Active Protocol: Document 10/01/25 13:55 AB (Rec: 10/01/25 17:12 AB Desktop) PT-Bed Mobility Assessment Rolling Type of Rolling Log Rolling Level of Assist Maximal Assistance Supine to Sit Supine to Sit Bedrails Sit to Supine Sit to Supine Maximum Assistance,1 Person Assistance,Bedrails PT-Transfer Assessment Sit to and From Stand Sit to and from Minimal Assistance,1 Person Assistance,Use of Upper Stand Extremities Equipment Transfer Assistive Gait Belt,Front Wheeled Walker Device Orthotic/Prosthetic No Devices or Brace: Transfers Transfer Destination Bed Transfer Technique ambulated Transfer Ability Level of Assist Minimal Assistance,1 Person Assistance,Use of Upper Extremities Comments Mobility Comments pt sitting on the chair and agreeable to do PT. obtained PLOF and home set up. reviewed abdominal precautions and log roll bed mobility. post-op handout provided. BP: 144/78 pt completed sit to stand from the chair min A and cues . pt ambulated in room using FWW min A and cues. slow paced gait with narrow base of support. cued to correct . pt sat on EOB. assisted pt with donning of brief. sit to stand from EOB min A and pt was able to maintain standing CGA to min A using FWW for support while assisted with brief management. completed sit to supine max A and max cues. pt wants to just stay in bed. positioned pt in bed. call light and table placed within reach. pt stated that she has a recliner at home that she can sleep on if needed. Gait Assessment Gait Gait Assistance Minimum Assistance Required: Distance (Feet) 30 Able to Maintain Yes Weight Bearing Status During Gait Assistive Devices Assistive Device Gait Belt,Front Wheeled Walker Orthotic/Prosthetic No Devices or Brace: Gait Deviations General Gait Pattern Decreased Stride Length,Decreased Feet Clearance Factors Limiting Gait Function Factors Limiting Decreased Activity Tolerance,Decreased Sensation, Gait Function Decreased Strength,Difficulty Following Directions, Limited Range of Motion,Pain,Poor Balance,Poor Safety Awareness PT-Balance Assessment Sitting Balance and Reactions Static Sitting Good Balance Ability Dynamic Sitting Good Balance Ability Standing Balance and Reactions Static Standing Fair Balance Ability Dynamic Standing Fair Balance Ability Device Used FWW M5 PT-IP Objective Assessments Start: 10/01/25 16:51 Freq: NEEDED Status: Active Protocol: Document 10/01/25 13:55 AB (Rec: 10/01/25 17:12 AB Desktop) Orientation Orientation/Cognition Level of Alertness Alert Orientation Name,Place,Situation Language Function Hard of Hearing Ability Safety Awareness Decreased Safety Awareness Memory Description Short Term Impaired Gross Range of Motion Lower Extremity ROM Assessment Within Functional Limits Strength Lower Extremity Strength Hip 3+/5 Knee 4-/5 Muscle Tone Muscle Tone WNL Yes M6 PT-IP Treatment Start: 10/01/25 16:51 Freq: NEEDED Status: Active Protocol: Document 10/01/25 13:55 AB (Rec: 10/01/25 17:12 AB Desktop) Physical Therapy Treatment Education Education Provided Precautions,Post-Op Packet,Safety M7 PT-IP Assessment and Plan Start: 10/01/25 16:51 Freq: NEEDED Status: Active Protocol: Document 10/01/25 13:55 AB (Rec: 10/01/25 17:12 AB Desktop) PT Summary Assessment and Plan Potential Rehabilitation Fair Potential Status of Condition Evolving at Evaluation Summary Impairments Pain,ROM,Strength,Balance,Coordination,Sensation,Tone, Cognition,Bed Mobility,Transfers,Gait,Activity Tolerance Assessment Summary pt is an 84 y/o F who was just admitted here in the hospital 09/17 thru 09/28 s/p colectomy. pt admitted again for perorated bowel s/p ex-lap. pt also has h/o L 5th metatarsal fx and needs to have her supportive shoes for standing and ambulation per ortho note. pt requiring min A for sit to stand and ambulation using FWW but required max A for bed mobility. pt plans to sleep on her recliner chair at home. pt lives with spouse who has limited capabilities to assist pt but pt wants to just go home and agreeable to have HHPT. will continues to assess progress. Goals Bed Mobility Goal Independent Transfer Goal Independent,Front Wheeled Walker Gait Goal Independent,Front Wheel Walker Gait Distance 200 Other Goals improve transfers and ambulation using LRAD/without AD 200 ft mod I Days to Meet Goals 10 Frequency of Treatment Frequency Of Once a Day Treatment Treatment Plan Physical Therapy Bed Mobility Training,Transfer Training,Gait Training, Treatment Plan Therapeutic Exercise,Balance Retraining,Post Op Education,Discharge Planning,Hot or Cold Pack, Neuromuscular Re-ed,Coordination Retraining,Manual Therapy Precautions Abdominal Surgery Log Roll,Lifting Restrictions,Gait Belt above Precautions Incisional Area Recommendations To Nursing Amount of Assist 1 Person Assist Needed Discharge Recommendations PT Discharge Home with 16/06 Assist Available,Home Health Recommendations Transportation Needs Private Vehicle,Wheelchair/Cabulance at Discharge - PT assist 1
[2025-10-01 15:50] VITALS: BP 149/80; PULSE 80; RESP 14; TEMP 36.7; O2SAT 99
[2025-10-01 19:00] VITALS: BP 147/88; PULSE 75; RESP 16; TEMP 37.1; O2SAT 97
[2025-10-01] MEDS: ATORVASTATIN 20 MG TABLET 40 MG PO (20:20)
[2025-10-01 23:00] VITALS: BP 158/89; PULSE 73; RESP 17; TEMP 37.2; O2SAT 98
[2025-10-02 03:00] VITALS: BP 111/66; PULSE 69; RESP 14; TEMP 37.1; O2SAT 98
[2025-10-02 06:15] LABS: Add Manual Diff / Slide Review NO; Hematocrit 35.3 % (36-46); Hemoglobin 12.3 g/dL (12.0-16.0); Lymphocytes Absolute Auto 1300 /uL (1100-4500); Mean Corpuscular HGB Conc 34.9 % (30-36); Mean Corpuscular Hemoglobin 32.2 PG (26-34); Mean Corpuscular Volume 92.3 fL (80-100); Platelet Count 302 X10^3/uL (150-400)
[2025-10-02 06:23] LABS: Alanine Aminotransferase 25 IU/L (<35); Albumin 2.5 g/dL (3.5-5.0); Albumin Globulin Ratio 1.0 (1.0-2.8); Alkaline Phosphatase 81 U/L (38-126); Blood Urea Nitrogen 12 mg/dL (7-17); Calcium 7.5 mg/dL (8.4-10.2); Carbon Dioxide 24 mmol/L (22-32); Chloride 101 mmol/L (98-107); Estimated Glomerular Filt Rate > 60 mL/min (>60); Globulin 2.4 g/dL (1.7-4.1); Glucose 68 mg/dL (70-99); HEMOLYSIS < 15 (0-50); Potassium 3.7 mmol/L (3.4-5.1); Sodium 133 mmol/L (137-145); Total Protein 4.9 g/dL (6.3-8.2)
[2025-10-02 06:30] LABS: Magnesium 1.7 mg/dL (1.6-2.3)
[2025-10-02] MEDS: PIPERACILLIN/TAZO 3.375 GM in SODIUM CHLORIDE 0.9% 100 ML IV ×3 (06:42→22:50)
[2025-10-02 08:00] VITALS: BP 152/78; PULSE 77; RESP 16; O2SAT 94
[2025-10-02] MEDS: IPRATROPIUM 0.06% NASAL 15 ML 2 SPRAY NASAL ×2 (08:12→20:31)
[2025-10-02] MEDS: ENOXAPARIN 40 MG/0.4 ML SYRINGE SUBCUT (08:13)
[2025-10-02] MEDS: MAGNESIUM CHLORIDE 64 MG TABLET 128 MG PO (08:36)
--- NOTE | 2025-10-02 09:51 | PM.PN.IH.1 ---
Subjective Subjective Date Patient Seen: 10/02/25 Time Patient Seen: 09:52 Interval history: Awake, alert, and sitting up in chair. Tolerating diet. Notes that since initiating his Zyprexa, having horrible nightmares. I have discussed with Dr. Rueda, who will discontinue the Zyprexa and begin melatonin or another sleep aid. Ostomy functioning well. Has remained afebrile, with stable vital signs, and no tachycardia. Exam Vital Signs (past 8 hours): - 10/02/25 03:00 10/02/25 08:00 Temperature 98.7 F Pulse Rate 69 77 Respiratory Rate 14 16 Blood Pressure 111/66 152/78 H Pulse Oximetry 98 94 Oxygen Flow Rate 0 Oxygen Delivery Method Room Air Oxygen Flow Rate 0 Narrative Exam Narrative: Alert and oriented x4 Afebrile, vital signs stable Regular rate and rhythm without murmur at 84 Abdomen soft, nondistended, with mild incisional tenderness; good bowel sounds Wounds clean dry and intact without erythema Ambulating with assistance Objective Labs 10/02/25 05:25 10/02/25 05:25 Labs: Laboratory Results - last 24 hr 10/02/25 05:25 WBC 8.9 RBC 3.83 L Hgb 12.3 Hct 35.3 L MCV 92.3 MCH 32.2 MCHC 34.9 RDW 12.9 Plt Count 302 Neut % (Auto) 74.9 Lymph % (Auto) 15.1 L [place] % (Auto) 8.2 Eos % (Auto) 1.4 L Baso % (Auto) 0.4 Neut # (Auto) 6700 Lymph # (Auto) 1300 [place] # (Auto) 700 Eos # (Auto) 100 Baso # (Auto) 0 Sodium 133 L Potassium 3.7 Chloride 101 Carbon Dioxide 24 BUN 12 Creatinine 0.52 Estimated GFR > 60 BUN/Creatinine Ratio 23.1 H Glucose 68 L Calcium 7.5 L Magnesium 1.7 Total Bilirubin 0.8 AST 33 ALT 25 Alkaline Phosphatase 81 Total Protein 4.9 L Albumin 2.5 L Globulin 2.4 Albumin/Globulin Ratio 1.0 [facility] Medical History Abnormal mammogram of right breast (~04/2020) Acid reflux Angular cheilitis Chicken pox (~1950) Chronic pseudo-obstruction of colon Chronic vaginitis (04/01/16) Contusion of left thumb Diarrhea Dizziness Edema of both lower legs Edema of foot (11/01/15) Esophagitis Frequent UTI Green nails Hearing loss History of urinary tract infection House dust mite allergy Hyperlipidemia Hypertension Hypomagnesemia Hyponatremia Incomplete emptying of bladder Lichen sclerosus of female genitalia Measles (~1950) Meningioma Microalbuminuria Mixed irritable bowel syndrome Mumps (~1950) Obstructive sleep apnea hypopnea, moderate Onychomycosis Oral thrush Osteoarthritis of left hip (04/01/16) Overweight (BMI 25.0-29.9) Palpitations Pollen allergy SBO (small bowel obstruction) Self-catheterizes urinary bladder Shortness of breath on exertion Snoring Syncope Thumb fracture Thumb laceration Uncontrolled diabetes mellitus Urinary retention Venous telangiectasia of lower extremity Vision disorder Vulvitis Surgical History Anesthesia History of left hip replacement Hx of inguinal hernia repair Status post hernia repair (~1964) Family History Brother Age: 87 Detached retina Father Cancer Loud snoring Mother Hypertension Stroke Sister Diabetes mellitus Social History marital status: number of children: 1 household members: spouse lives independently: Yes occupational status: previously employed Smoking Status: Never smoker alcohol intake: never substance use type: does not use eating out: rarely or never Type(s) of exercise: walking and bicycling frequency: 1-2 times per week duration: 45-60 minutes/day Assessment & Plan Assessment & Plan narrative: 84-year-old female status post sigmoid colectomy (postoperative day 11), exploratory laparotomy for an anastomotic leak with colostomy (postoperative day number 4) -patient is doing remarkably well. She feels it would not be safe for her to go home at this time. Given her age and the fact that she has had 2 significant surgeries within the last 2 weeks, I have suggested admission to a rehab center to return to her prior level of functioning. She is in agreement. -we will advance her diet to a soft low-fiber at this time -discussed with Dr. Rueda discontinuing Zyprexa and considering other sleep aids; he is in agreement -discuss with case management placement in rehab center -we will continue Ida until such time that the patient can self catheterization as she does at home Time-Based Coding :: [TOTAL MINUTES] spent with patient and on the chart (including review of chart, obtaining history, exam, reviewing outside data, placing orders, documenting exam and treatment plan, and counseling patient) on [DATE]. Quality VTE Deep Vein Thrombosis/Pulmonary Embolism Present on Admission: No IH PROFEE Bpo Specialist Document charge(s): No Charge Codes Subsequent inpatient/observation care: [id number]
--- NOTE | 2025-10-02 11:23 | PM.PN.IH.1 ---
Subjective Subjective Date Patient Seen: 10/02/25 Time Patient Seen: 08:18 Interval history: HPI: 84-year-old male 8 days postoperative correction of colon volvulus developed anastomotic leak peritonitis was brought back to the emergency room in the evening of 09/28. Preoperatively patient developed an atrial tachycardia/arrhythmia interpreted as atrial fibrillation. The nocturnal offsite tele-hospitalist was consulted. Telemetry was interpreted as atrial fibrillation. Electrocardiogram was performed which demonstrated sinus tachycardia rate of 118 with first-degree AV block with [place] interval of 240, right anterior hemiblock, and QTC prolongation with interval of 616. Troponin was less than 0.012 interpreted as negative. Recorded vital signs were stable the lowest blood pressure 104/78 in the most recent blood pressure 130/77. Review of telemetry records Hospital course: 09/29: Doing well postoperatively no complaints of pain started diet per surgery. 09/30: Mildly confused this morning but orientating appropriate on my evaluation. No specific complaints. 10/01: She is alert, oriented, without complaints. She was able to get up yesterday and walk a few steps. No telemetry events noted 10/02: She notes significant nightmares, odd dreams and visual hallucinations since starting Zyprexa. She denies prior history of hallucinations or psychiatric conditions. Zyprexa was started by surgery on 09/29 due to postoperative delirium per notes. She states that she is concerned about returning home due to her condition and feels that she needs additional nursing assistance for care including self catheterization (which she was doing prior to admission) following her abdominal surgery. Case is reviewed with Dr. Ruiz of surgery. Exam Vital Signs (past 8 hours): - 10/02/25 08:00 Pulse Rate 77 Respiratory Rate 16 Blood Pressure 152/78 H Pulse Oximetry 94 Oxygen Flow Rate 0 Oxygen Delivery Method Room Air Oxygen Flow Rate 0 Narrative Exam Narrative: No acute distress HEENT unremarkable Heart rate and rhythm regular with premature beats and pauses (not irregularly irregular) Abdomen: Soft, nontender, colostomy bag in place. Lungs with bibasilar rales Extremities no edema Objective Labs 10/02/25 05:25 10/02/25 05:25 Labs: Laboratory Results - last 24 hr 10/02/25 05:25 WBC 8.9 RBC 3.83 L Hgb 12.3 Hct 35.3 L MCV 92.3 MCH 32.2 MCHC 34.9 RDW 12.9 Plt Count 302 Neut % (Auto) 74.9 Lymph % (Auto) 15.1 L [place] % (Auto) 8.2 Eos % (Auto) 1.4 L Baso % (Auto) 0.4 Neut # (Auto) 6700 Lymph # (Auto) 1300 [place] # (Auto) 700 Eos # (Auto) 100 Baso # (Auto) 0 Sodium 133 L Potassium 3.7 Chloride 101 Carbon Dioxide 24 BUN 12 Creatinine 0.52 Estimated GFR > 60 BUN/Creatinine Ratio 23.1 H Glucose 68 L Calcium 7.5 L Magnesium 1.7 Total Bilirubin 0.8 AST 33 ALT 25 Alkaline Phosphatase 81 Total Protein 4.9 L Albumin 2.5 L Globulin 2.4 Albumin/Globulin Ratio 1.0 [facility] Medical History Abnormal mammogram of right breast (~04/2020) Acid reflux Angular cheilitis Chicken pox (~1949) Chronic pseudo-obstruction of colon Chronic vaginitis (04/01/16) Contusion of left thumb Diarrhea Dizziness Edema of both lower legs Edema of foot (11/01/15) Esophagitis Frequent UTI Green nails Hearing loss History of urinary tract infection House dust mite allergy Hyperlipidemia Hypertension Hypomagnesemia Hyponatremia Incomplete emptying of bladder Lichen sclerosus of female genitalia Measles (~1949) Meningioma Microalbuminuria Mixed irritable bowel syndrome Mumps (~1949) Obstructive sleep apnea hypopnea, moderate Onychomycosis Oral thrush Osteoarthritis of left hip (04/01/16) Overweight (BMI 25.0-29.9) Palpitations Pollen allergy SBO (small bowel obstruction) Self-catheterizes urinary bladder Shortness of breath on exertion Snoring Syncope Thumb fracture Thumb laceration Uncontrolled diabetes mellitus Urinary retention Venous telangiectasia of lower extremity Vision disorder Vulvitis Surgical History Anesthesia History of left hip replacement Hx of inguinal hernia repair Status post hernia repair (~1964) Family History Brother Age: 87 Detached retina Father Cancer Loud snoring Mother Hypertension Stroke Sister Diabetes mellitus Social History marital status: number of children: 1 household members: spouse lives independently: Yes occupational status: previously employed Smoking Status: Never smoker alcohol intake: never substance use type: does not use eating out: rarely or never Type(s) of exercise: walking and bicycling frequency: 1-2 times per week duration: 45-60 minutes/day Assessment & Plan Assessment & Plan narrative: Multi atrial tachycardia (no findings of atrial fibrillation and review of telemetry strips or EKGs) Continue cardiac telemetry No intervention for MAT indicated Echocardiogram normal QT prolongation: Magnesium normal Avoid medications or combinations that further QT prolongation Continue telemetry Postoperative confusion: Appears resolved, stop Zyprexa at this point and monitor Anastomotic leak status post colostomy Management per surgery stewardship DVT prophylaxis: Per surgery Code status: Full code blue Disposition: Inpatient per surgery (attending) discretion. She will require [facility] facility given her multiple medical needs, debility, and 2 major surgeries in the past 2 weeks, as well as need for assistance with self catheterization. Quality VTE Deep Vein Thrombosis/Pulmonary Embolism Present on Admission: No PROFEE Digital Associate Document charge(s): No Charge Codes Subsequent inpatient/observation care: [id number]
--- NOTE | 2025-10-02 12:12 | PT.IPTN ---
Current Diagnoses Other specified symptoms and signs involving the digestive system and abdomen (09/28/25) Surgery Performed Operation Date: 09/28/25 16:30 Actual Procedures p Exploratory Laparotomy, Washout, Colostomy - Harry Roche MD Physical Therapy Treatment Note M2 PT-IP Current Condition Start: 10/01/25 16:51 Freq: NEEDED Status: Active Protocol: Document 10/01/25 13:55 AB (Rec: 10/01/25 17:12 AB Desktop) Physical Therapy Current Condition Current Condition Evaluation Date 10/01/25 Treatment Diagnosis bowel perforation s/p ex-lap; difficulty in walking Onset Date 09/28/25 M3 PT-IP Subjective Start: 10/01/25 16:51 Freq: NEEDED Status: Active Protocol: Document 10/02/25 12:00 SAK (Rec: 10/02/25 12:11 SAK [id number]) Subjective Physical Therapy Visit Type Type Treatment Note Visit Start Time 11:32 Visit Stop Time 11:58 Number of OPERATOR AND TRUCK DRIVER Visits 0 Physical Therapy Visit Comments Patient Comments Patient just arriving as PT comes for session; patient wanting him to observe to see how much help she needs. He expresses that he is unable to help her get out of bed and wouldn't be able to assist if she had balance difficulty due to back problem. Therapy Pain Assessment Pain When Pain Assessed At Rest Pain Present Pain Present Allowed to Sleep Location Abdomen Intensity 2 Scale Used Numeric (0 - 10) Description Pressure Pain Management Distraction,Modification of Treatment,Re-positioning, Techniques Timing of Activity with Medications M4 PT-IP Mobility and Gait Start: 10/01/25 16:51 Freq: NEEDED Status: Active Protocol: Document 10/02/25 12:00 SAK (Rec: 10/02/25 12:11 SAK [id number]) PT-Bed Mobility Assessment Rolling Type of Rolling Log Rolling Level of Assist Moderate Assistance,1 Person Assistance Supine to Sit Supine to Sit Bedrails Scooting Scooting to Edge of Contact Guard Assistance Bed PT-Transfer Assessment Sit to and From Stand Sit to and from Minimal Assistance,1 Person Assistance,Use of Upper Stand Extremities Equipment Transfer Assistive Gait Belt,Front Wheeled Walker Device Orthotic/Prosthetic No Devices or Brace: Transfers Transfer Destination Bed Transfer Technique ambulated Transfer Ability Level of Assist Minimal Assistance,1 Person Assistance,Use of Upper Extremities Comments Mobility Comments Patient in bed. Reviewed need for long roll to move in /out of bed. Mod assist for long roll and assist supine to sit. Sit to stand with min A and FWW, gait belt at chest. Patient ambulated 50 ft with FWW and CGA, frequent cues for increased CRISTAL. Patient ambulated to chair and transferred stand to sit with CGA. Left sitting up with call light on lap, in room, lunch being set up. Patient reporting she will need to get a lot better before I can have her at home. Gait Assessment Gait Gait Assistance Contact Guard Assist,Minimum Assistance,1 Person Assist Required: Distance (Feet) 30 Able to Maintain Yes Weight Bearing Status During Gait Assistive Devices Assistive Device Gait Belt,Front Wheeled Walker Orthotic/Prosthetic No Devices or Brace: Gait Deviations General Gait Pattern Decreased Stride Length,Decreased Feet Clearance,Narrow Based Gait Factors Limiting Gait Function Factors Limiting Decreased Activity Tolerance,Decreased Sensation, Gait Function Decreased Strength,Difficulty Following Directions, Limited Range of Motion,Pain,Poor Balance,Poor Safety Awareness M5 PT-IP Objective Assessments Start: 10/01/25 16:51 Freq: NEEDED Status: Active Protocol: Document 10/01/25 13:55 AB (Rec: 10/01/25 17:12 AB Desktop) Orientation Orientation/Cognition Level of Alertness Alert Orientation Name,Place,Situation Language Function Hard of Hearing Ability Safety Awareness Decreased Safety Awareness Memory Description Short Term Impaired Gross Range of Motion Lower Extremity ROM Assessment Within Functional Limits Strength Lower Extremity Strength Hip 3+/5 Knee 4-/5 Muscle Tone Muscle Tone WNL Yes M6 PT-IP Treatment Start: 10/01/25 16:51 Freq: NEEDED Status: Active Protocol: Document 10/02/25 12:00 [facility] (Rec: 10/02/25 12:11 [facility] [id number]) Physical Therapy Treatment Education Education Provided Precautions,Safety M7 PT-IP Assessment and Plan Start: 10/01/25 16:51 Freq: NEEDED Status: Active Protocol: Document 10/02/25 12:00 SAK (Rec: 10/02/25 12:11 [facility] [id number]) PT Summary Assessment and Plan Summary Impairments Pain,ROM,Strength,Balance,Coordination,Sensation,Tone, Cognition,Bed Mobility,Transfers,Gait,Activity Tolerance Progress Towards Progressing Toward Goals Goals Assessment Summary Improved mobility with decreased assist, very fatigued after ambulation 50 ft. Patient and asking about rehab, while also discussing needs of patient and very limited ability of to assist including feeling patient will need to get a lot better before I can have her at home, though also expressing desire to have her come home instead of SNF rehab. Goals Bed Mobility Goal Independent Transfer Goal Independent,Front Wheeled Walker Gait Goal Independent,Front Wheel Walker Gait Distance 200 Other Goals improve transfers and ambulation using LRAD/without AD 200 ft mod I Days to Meet Goals 10 Frequency of Treatment Frequency Of Once a Day Treatment Treatment Plan Physical Therapy Bed Mobility Training,Transfer Training,Gait Training, Treatment Plan Therapeutic Exercise,Balance Retraining,Post Op Education,Discharge Planning,Hot or Cold Pack, Neuromuscular Re-ed,Coordination Retraining,Manual Therapy Other assess gait with SPC; balance interventions Recommendations and Next Treatment Focus Precautions Abdominal Surgery Log Roll,Lifting Restrictions,Gait Belt above Precautions Incisional Area Discharge Recommendations PT Discharge Home with 24/ Assist Available,Home Health,SNF Rehab Recommendations Transportation Needs Private Vehicle,Wheelchair/Cabulance at Discharge
--- NOTE | 2025-10-02 15:40 | CM.DPNOTE ---
DCP note ANODE REBUILDER reviewed EMR per team in morning rounds, pt concerned about managing self cath/mobility/new colostomy bag at home by self originally. per provider, had some weird upsetting dreams recently, plan to stop the zyprexa that was recently started. ANODE REBUILDER met with pt and spouse in room. reviewed DCP options. reviewed SNF options/HH options. open to SNF- reviewing preferences now and will plan to update CM team tomorrow with choices on SNF placement. if SNF, PASRR needed. P: SNF vs Home with HH pending pt preference. referrals needed. will continue to follow closely for DCP Coordination [employer]US[employer]
[2025-10-02 20:00] VITALS: BP 162/109; PULSE 83; RESP 16; TEMP 36.7; O2SAT 97
[2025-10-02 20:05] VITALS: BP 168/100
[2025-10-02] MEDS: ATORVASTATIN 20 MG TABLET 40 MG PO (20:31)
[2025-10-02] MEDS: SODIUM CHLORIDE 0.9% 1,000 ML 100 ML IV (20:31)
[2025-10-02] MEDS: SODIUM CHLORIDE 0.9% FLUSH 10 ML IV (20:40)
[2025-10-03 05:27] VITALS: BP 156/85
[2025-10-03 05:42] LABS: Blood Urea Nitrogen 9 mg/dL (7-17); Calcium 7.6 mg/dL (8.4-10.2); Carbon Dioxide 24 mmol/L (22-32); Chloride 102 mmol/L (98-107); Estimated Glomerular Filt Rate > 60 mL/min (>60); Glucose 102 mg/dL (70-99); HEMOLYSIS < 15 (0-50); Magnesium 1.7 mg/dL (1.6-2.3); Potassium 3.7 mmol/L (3.4-5.1); Sodium 131 mmol/L (137-145)
[2025-10-03] MEDS: PIPERACILLIN/TAZO 3.375 GM in SODIUM CHLORIDE 0.9% 100 ML IV (06:24)
[2025-10-03] MEDS: SODIUM CHLORIDE 0.9% 1,000 ML 100 ML IV (06:25)
--- NOTE | 2025-10-03 07:41 | PM.PN.1 ---
Subjective Subjective Interval history: Summary: 84-year-old male 8 days postoperative correction of colon volvulus developed anastomotic leak peritonitis was brought back to the emergency room in the evening of 09/28. Preoperatively patient developed an atrial tachycardia/arrhythmia interpreted as atrial fibrillation. The nocturnal offsite tele-hospitalist was consulted. Telemetry was interpreted as atrial fibrillation. Electrocardiogram was performed which demonstrated sinus tachycardia rate of 118 with first-degree AV block with MT interval of 240, right anterior hemiblock, and QTC prolongation with interval of 616. Troponin was less than 0.012 interpreted as negative. Recorded vital signs were stable the lowest blood pressure 104/78 in the most recent blood pressure 130/77. Review of telemetry records Hospital course: 09/29: Doing well postoperatively no complaints of pain started diet per surgery. 09/30: Mildly confused this morning but orientating appropriate on my evaluation. No specific complaints. 10/01: She is alert, oriented, without complaints. She was able to get up yesterday and walk a few steps. No telemetry events noted 10/02: She notes significant nightmares, odd dreams and visual hallucinations since starting Zyprexa. She denies prior history of hallucinations or psychiatric conditions. Zyprexa was started by surgery on 09/29 due to postoperative delirium per notes. She states that she is concerned about returning home due to her condition and feels that she needs additional nursing assistance for care including self catheterization (which she was doing prior to admission) following her abdominal surgery. Case is reviewed with Dr. Ruiz of surgery. S: She was feeling very good today. Minimal abdominal pain, colostomy with good output. Stool is brown. No leg edema. She was a Dia catheter in but does have chronic neurogenic bladder with retention and in and out catheterization at home. O: VSS. Alert and oriented, no distress, fluent speech. Midline trachea. Lungs are clear with normal effort. Heart is regular, no murmur. Abdomen is nondistended and nontender. She was midline wound with morgan and no dehiscence. Ostomy is in place. No leg edema. IMAGING: CTAP: 1. Postsurgical changes from rectal sigmoid resection with diastasis involving surgical anastomosis along anterior wall of rectal sigmoid region with large amount of peritoneal free air. 2. Suggestion of enterocolitis with fluid-filled small bowel and colon loops and questionable wall thickening. No discrete drainable abscess collection. 3. Subcutaneous emphysema in anterior abdominal wall which may be postsurgical changes. 4. Other findings are not significantly changed from prior study. A/P: 1. Multi atrial tachycardia (no findings of atrial fibrillation and review of telemetry strips or EKGs), improved. Continue cardiac telemetry No intervention for MAT indicated Echocardiogram normal 2. QT prolongation, stable. Magnesium normal Avoid medications or combinations that further QT prolongation Continue telemetry 3. Postoperative encephalopathy, resolved. Appears resolved, stop Zyprexa at this point and monitor 4. Anastomotic leak status post colostomy, resolved. Management per surgery stewardship DVT prophylaxis: Enoxaparin 40 QD. Code status: Full code Disposition: Inpatient per surgery (attending) discretion. She will require half-way facility given her multiple medical needs, debility, and 2 major surgeries in the past 2 weeks, as well as need for assistance with self catheterization. Exam Vital Signs (past 8 hours): - 10/03/25 05:27 Blood Pressure 156/85 H Oxygen Delivery Method Room Air Oxygen Flow Rate 0 Objective Labs 10/02/25 05:25 10/03/25 05:15 Labs: Laboratory Results - last 24 hr 10/03/25 05:15 Sodium 131 L Potassium 3.7 Chloride 102 Carbon Dioxide 24 BUN 9 Creatinine 0.48 L Estimated GFR > 60 BUN/Creatinine Ratio 18.8 Glucose 102 H Calcium 7.6 L Magnesium 1.7 PFSH Medical History Abnormal mammogram of right breast (~04/2020) Acid reflux Angular cheilitis Chicken pox (~1949) Chronic pseudo-obstruction of colon Chronic vaginitis (04/01/16) Contusion of left thumb Diarrhea Dizziness Edema of both lower legs Edema of foot (11/01/15) Esophagitis Frequent UTI Green nails Hearing loss History of urinary tract infection House dust mite allergy Hyperlipidemia Hypertension Hypomagnesemia Hyponatremia Incomplete emptying of bladder Lichen sclerosus of female genitalia Measles (~1949) Meningioma Microalbuminuria Mixed irritable bowel syndrome Mumps (~1949) Obstructive sleep apnea hypopnea, moderate Onychomycosis Oral thrush Osteoarthritis of left hip (04/01/16) Overweight (BMI 25.0-29.9) Palpitations Pollen allergy SBO (small bowel obstruction) Self-catheterizes urinary bladder Shortness of breath on exertion Snoring Syncope Thumb fracture Thumb laceration Uncontrolled diabetes mellitus Urinary retention Venous telangiectasia of lower extremity Vision disorder Vulvitis Surgical History Anesthesia History of left hip replacement Hx of inguinal hernia repair Status post hernia repair (~1965) Family History Brother Age: 87 Detached retina Father Cancer Loud snoring Mother Hypertension Stroke Sister Diabetes mellitus Social History marital status: number of children: 1 household members: spouse lives independently: Yes occupational status: previously employed Smoking Status: Never smoker alcohol intake: never substance use type: does not use eating out: rarely or never Type(s) of exercise: walking and bicycling frequency: 1-2 times per week duration: 45-60 minutes/day Assessment & Plan Time-Based Coding :: [TOTAL MINUTES] spent with patient and on the chart (including review of chart, obtaining history, exam, reviewing outside data, placing orders, documenting exam and treatment plan, and counseling patient) on [DATE]. Quality VTE Deep Vein Thrombosis/Pulmonary Embolism Present on Admission: No
[2025-10-03 08:00] VITALS: BP 146/66; PULSE 89; RESP 16; TEMP 36.9; O2SAT 97
[2025-10-03] MEDS: IPRATROPIUM 0.06% NASAL 15 ML 2 SPRAY NASAL (08:18)
[2025-10-03] MEDS: SODIUM CHLORIDE 0.9% FLUSH 10 ML IV (08:21)
[2025-10-03] MEDS: ENOXAPARIN 40 MG/0.4 ML SYRINGE SUBCUT (08:21)
--- NOTE | 2025-10-03 09:13 | PT.IPTN ---
Current Diagnoses Other specified symptoms and signs involving the digestive system and abdomen (09/28/25) Surgery Performed Operation Date: 09/28/25 16:30 Actual Procedures p Exploratory Laparotomy, Washout, Colostomy - Harry Roche MD Physical Therapy Treatment Note M2 PT-IP Current Condition Start: 10/01/25 16:51 Freq: NEEDED Status: Active Protocol: Document 10/03/25 09:20 SP (Rec: 10/03/25 09:41 SP Laptop) Physical Therapy Current Condition Current Condition Evaluation Date 10/01/25 Treatment Diagnosis bowel perforation s/p ex-lap; difficulty in walking Onset Date 09/28/25 M3 PT-IP Subjective Start: 10/01/25 16:51 Freq: NEEDED Status: Active Protocol: Document 10/03/25 09:20 SP (Rec: 10/03/25 09:41 SP Laptop) Subjective Physical Therapy Visit Type Type Treatment Note Visit Start Time 08:46 Visit Stop Time 09:13 Number of TRAVEL ADMINISTRATOR Visits 1 Physical Therapy Visit Comments Patient Comments Pt willing to work with therapy. Patient Goals Got to a SNF to get stronger before going home. She expressed her uses a trek pole for mobility and has his own deficits and not sure how much can help her. Therapy Pain Assessment Pain When Pain Assessed During Mobility Pain Present Pain Present Pain Reported Location Abdomen Intensity 2 Scale Used Numeric (0 - 10) Description Pressure Pain Behaviors Facial Grimacing,Holding Area Pain Management Distraction,Modification of Treatment,Re-positioning, Techniques Timing of Activity with Medications M4 PT-IP Mobility and Gait Start: 10/01/25 16:51 Freq: NEEDED Status: Active Protocol: Document 10/03/25 09:20 SP (Rec: 10/03/25 09:41 SP Laptop) PT-Bed Mobility Assessment Rolling Type of Rolling Log Rolling Level of Assist Contact Guard Assistance,1 Person Assistance Supine to Sit Supine to Sit Bedrails Sit to Supine Sit to Supine Moderate Assistance,1 Person Assistance,Bedrails Scooting Scooting to Edge of Contact Guard Assistance,Minimal Assistance Bed PT-Transfer Assessment Sit to and From Stand Sit to and from Contact Guard Assistance,Minimal Assistance,1 Person Stand Assistance,Use of Upper Extremities Equipment Transfer Assistive Gait Belt,Front Wheeled Walker Device Orthotic/Prosthetic No Devices or Brace: Transfers Transfer Destination Chair Transfer Technique ambulated with FWW Transfer Ability Level of Assist Contact Guard Assistance,Minimal Assistance,1 Person Assistance,Use of Upper Extremities Comments Mobility Comments Pt hypotensive vitals: LUE BP 156/95 HR 115 unable get SaO2 reading but no distress noted, 2nd check before mobility 161/97 HR 111 and 166/95 Hr 94 after mobility in the room. Pt agreeable to mobilize. TRAVEL ADMINISTRATOR instructed Log roll technique with HOB flat (assimilate home set up), cues for full roll onto side, Heavy use of UE support on bed rail and added trunk support for trunk righting to sit, Min A for stability scoot and sit EOB due to unsteady retro LOB while scooting. close SBA sitting EOB. CG-Lavon STS from EOB, tends to use back of LEs on bed to support standing and cues for pushing from bed to come to stand. Gait with FWW CGA CG-Lavon with noted little trunk sway to Right but no LOB, cues for increase CRISTAL reduce risk for feet entanglement improved corrections, approx 30 ft then needed to sit for tiring recovery. Provided waffle cushion seat for skin integrity support knowing decreased strength/ mobility endurance in standing tolerance. TRAVEL ADMINISTRATOR recommending further skilled rehab for progression strength and independence in mobility. Gait Assessment Gait Gait Assistance Contact Guard Assist,Minimum Assistance,1 Person Assist Required: Distance (Feet) 30 Able to Maintain Yes Weight Bearing Status During Gait Assistive Devices Assistive Device Gait Belt,Front Wheeled Walker Orthotic/Prosthetic No Devices or Brace: Gait Deviations General Gait Pattern Antalgic,Decreased Stride Length,Decreased Feet Clearance,Lateral Trunk Lean,Narrow Based Gait Factors Limiting Gait Function Factors Limiting Decreased Activity Tolerance,Decreased Strength, Gait Function Difficulty Following Directions,Limited Range of Motion ,Pain,Poor Balance,Poor Safety Awareness Comments Gait Comments see mobility comments Stair Climbing Assessment Comments Stair Climbing not need to assess stairs at this time, only crafting Comments room upstairs, no stairs to enter home and stays on main level. PT-Balance Assessment Sitting Balance and Reactions Static Sitting Good Balance Ability Dynamic Sitting Fair Balance Ability Standing Balance and Reactions Static Standing Fair Balance Ability Dynamic Standing Fair Balance Ability Device Used FWW M5 PT-IP Objective Assessments Start: 10/01/25 16:51 Freq: NEEDED Status: Active Protocol: Document 10/01/25 13:55 AB (Rec: 10/01/25 17:12 AB Desktop) Orientation Orientation/Cognition Level of Alertness Alert Orientation Name,Place,Situation Language Function Hard of Hearing Ability Safety Awareness Decreased Safety Awareness Memory Description Short Term Impaired Gross Range of Motion Lower Extremity ROM Assessment Within Functional Limits Strength Lower Extremity Strength Hip 3+/5 Knee 4-/5 Muscle Tone Muscle Tone WNL Yes M6 PT-IP Treatment Start: 10/01/25 16:51 Freq: NEEDED Status: Active Protocol: Document 10/03/25 09:20 SP (Rec: 10/03/25 09:41 SP Laptop) Physical Therapy Treatment Education Education Provided Precautions,Safety M7 PT-IP Assessment and Plan Start: 10/01/25 16:51 Freq: NEEDED Status: Active Protocol: Document 10/03/25 09:20 SP (Rec: 10/03/25 09:41 SP Laptop) PT Summary Assessment and Plan Potential Rehabilitation Fair Potential Status of Condition Evolving at Evaluation Summary Impairments Pain,ROM,Strength,Balance,Coordination,Sensation,Tone, Cognition,Bed Mobility,Transfers,Gait,Activity Tolerance Progress Towards Progressing Toward Goals Goals Assessment Summary Pt hypotensive BP pre mobility and throughout tx. She demonstrates decreased endurance and strength, Min A during bed mobility due to retro LOB trying to scoot to EOB, CG-Min A during gait with little trunk lean sway but no LOB using FWW, cues for increase CRISTAL support stability, approx 30 ft before tiring need to return to her chair. Recommending SNF vs HHPT / available to progress strength, balance and increased endurance return to PLOF. Pt states unsure her can assist her with his deficits and need to use a trek pole himself. Goals Bed Mobility Goal Independent Transfer Goal Independent,Front Wheeled Walker Gait Goal Independent,Front Wheel Walker Gait Distance 200 Other Goals improve transfers and ambulation using LRAD/without AD 200 ft mod I Days to Meet Goals 10 Frequency of Treatment Frequency Of Once a Day Treatment Treatment Plan Physical Therapy Bed Mobility Training,Transfer Training,Gait Training, Treatment Plan Therapeutic Exercise,Balance Retraining,Post Op Education,Discharge Planning,Hot or Cold Pack, Neuromuscular Re-ed,Coordination Retraining,Manual Therapy Other Continue progression distance with FWW vs SPC Recommendations and assessment, balance interventions. Next Treatment Focus Precautions Abdominal Surgery Log Roll,Lifting Restrictions,Gait Belt above Precautions Incisional Area Other Precautions instructions proper log roll technique. needs use of bed rails and Min A support sup> sit, of which has no bed rail home and her HOB is flat. Recommendations To Nursing Amount of Assist 1 Person Assist Needed Discharge Recommendations PT Discharge Home with 16/06 Assist Available,Home Health,SNF Rehab, Recommendations Home vs SNF Transportation Needs Private Vehicle,Wheelchair/Cabulance at Discharge - PT assist 1
--- NOTE | 2025-10-03 10:24 | DIET.PN1 ---
Dietary Progress Note Assessment: f/u Met with pt in room. Tolerating diet but reduced portions at meals. Tolerating Ensure. Continue with Ensure+ BID-TID. Reviewed good portions sources. Pt trying to focus on consuming protein source at meals. Ht: 172.72 cm Wt: 67 kg BMI: 22.4 UBW:130# Last BM: 09/30/25 (09/30/25 08:00) MNA: 10 Vince Score: 20 Diet: 10/01/25 Lunch Full Liquid Diet Diet Modifications: 10/02/25 Lunch Soft,Low Fiber (Low residue) Diet Diet Modifications: Ensure BID Food Texture: Level 7 - Regular Liquid Consistency: Level 0 - Thin Nutrition Percent Meal Consumed 25% 10/02/25 18:23 Percent Meal Consumed 25% 10/02/25 12:59 Percent Meal Consumed 25% 10/02/25 09:00 Percent Meal Consumed 30% 10/01/25 18:30 Labs: RBC 3.83 X10^6/uL (4.0-5.2) L 10/02/25 05:25 Hgb 12.3 g/dL (12.0-16.0) 10/02/25 05:25 Hct 35.3 % (36-46) L 10/02/25 05:25 Creatinine 0.48 mg/dL (0.52-1.04) L 10/03/25 05:15 Lactate 0.6 mmol/L (0.7-2.1) L 10/01/25 05:40 Electronically Signed by: Nneka Storm 10/03/25 10:24 Clinical Dietitian [address] [address]
--- NOTE | 2025-10-03 13:01 | P.DS_ITS ---
History of Present Illness
--- NOTE | 2025-10-03 13:01 | PM.DS.1 ---
History of Present Illness History of Present Illness Chief complaint: abd: px Narrative: From H&P: 84 years old female who had colon resection for sigmoid volvulus about 1 week ago presented back to the ER after increased abdominal pain and nausea. CT scan of the abdomen shows anastomotic leak with free air in the abdomen. Patient just had abdominal surgery with colostomy placed. During her recovery she was noted to have brief episodes of A-fib with RVR on telemetry. Subsequent echo showed sinus tachycardia with first-degree AV block. Prolonged QT and marked T wave abnormalities considering anterior ischemia. A consult was placed for prolonged QT and brief episodes of atrial fibrillation. Discharge Providers Provider Date of admission: 09/28/25 15:43 Discharge Date: 10/03/25 Primary care physician: Anthony Flores MD Consults: 09/28/25 20:34 Consult to Hospitalist Service Routine Comment: Consulting Provider: Jaden Begum Reason for consultation: medical management Has provider been notified: No 09/28/25 20:48 Consult to Pharmacy Routine Comment: review medications causing prolong Q-T 09/29/25 09:54 Consult to Dietitian, Adult Routine Comment: Reason For Exam: colostomy Consult to Wound Care Routine Comment: Consulting Provider: [facility] 10/01/25 09:47 Consult to Physical Therapy Evaluate & Treat Comment: Want to be able to go home. Physician Instructions: Evaluate and Treat 10/01/25 12:31 Consult to Physical Therapy Evaluate & Treat Comment: vs SNF Physician Instructions: Evaluate and Treat Discharge provider: Torey Mazariegos MD Summary Hospital Course Discharge Diagnosis: 1. Multi atrial tachycardia (no findings of atrial fibrillation and review of telemetry strips or EKGs), improved. Echocardiogram normal 2. QT prolongation, stable. Magnesium normal Avoid medications or combinations that further QT prolongation Continue telemetry 3. Postoperative encephalopathy, resolved. Appears resolved, stop Zyprexa at this point and monitor 4. Anastomotic leak status post colostomy, resolved. 5. Neurogenic bladder with chronic in and out Dia catheterization. She will be discharged with a Dia catheter for urine retention and this can transitioned to in and out catheter after follow up with General surgery and Dia removal. Hospital Course: Hospital course: 09/29: Doing well postoperatively no complaints of pain started diet per surgery. 09/30: Mildly confused this morning but orientating appropriate on my evaluation. No specific complaints. 10/01: She is alert, oriented, without complaints. She was able to get up yesterday and walk a few steps. No telemetry events noted 10/02: She notes significant nightmares, odd dreams and visual hallucinations since starting Zyprexa. She denies prior history of hallucinations or psychiatric conditions. Zyprexa was started by surgery on 09/29 due to postoperative delirium per notes. She states that she is concerned about returning home due to her condition and feels that she needs additional nursing assistance for care including self catheterization (which she was doing prior to admission) following her abdominal surgery. Case is reviewed with Dr. Ruiz of surgery. 10/03: Stable for discharge to [facility] discussed with surgery, ADÁN drain and Dia will remain until follow up with Dr. Roche in the next 5-7 days. Status at Discharge Cognitive/behavioral status at discharge: oriented Functional status at discharge: independent ambulation Overall status at discharge: patient is progressing back to baseline Time Spent with Patient Time spent: Greater than 30 minutes Exam Vital Signs (past 8 hours): - 10/03/25 05:27 10/03/25 08:00 Temperature 98.4 F Pulse Rate 89 Respiratory Rate 16 Blood Pressure 156/85 H 146/66 H Pulse Oximetry 97 Oxygen Flow Rate 0 Oxygen Delivery Method Room Air Oxygen Flow Rate 0 Narrative Exam Narrative: NAD, fluent speech. Oriented to person place and time. Lungs are clear with normal effort. Heart is regular without murmur. Abdomen is soft, midline incision and morgan are unremarkable. Ostomy is in place. Legs are free of edema. Skin is free of rash or lesions. Dia catheter and right lower quadrant ADÁN drain are in place. Objective Imaging CT scan - abdomen: Radiologist's impression: 1. Postsurgical changes from rectal sigmoid resection with diastasis involving surgical anastomosis along anterior wall of rectal sigmoid region with large amount of peritoneal free air. 2. Suggestion of enterocolitis with fluid-filled small bowel and colon loops and questionable wall thickening. No discrete drainable abscess collection. 3. Subcutaneous emphysema in anterior abdominal wall which may be postsurgical changes. 4. Other findings are not significantly changed from prior study. Labs 10/02/25 05:25 10/03/25 05:15 Labs: Laboratory Results - last 24 hr 10/03/25 05:15 Sodium 131 L Potassium 3.7 Chloride 102 Carbon Dioxide 24 BUN 9 Creatinine 0.48 L Estimated GFR > 60 BUN/Creatinine Ratio 18.8 Glucose 102 H Calcium 7.6 L Magnesium 1.7 PFSH Medical History Microalbuminuria Incomplete emptying of bladder Self-catheterizes urinary bladder Mixed irritable bowel syndrome History of urinary tract infection Chronic pseudo-obstruction of colon Urinary retention Meningioma SBO (small bowel obstruction) Uncontrolled diabetes mellitus Venous telangiectasia of lower extremity House dust mite allergy Pollen allergy Edema of both lower legs Thumb laceration Thumb fracture Contusion of left thumb Green nails Obstructive sleep apnea hypopnea, moderate Acid reflux Diarrhea Esophagitis Syncope Shortness of breath on exertion Palpitations Dizziness Hyponatremia Hypomagnesemia Snoring Abnormal mammogram of right breast (~04/2020) Oral thrush Overweight (BMI 25.0-29.9) Angular cheilitis Onychomycosis Vulvitis Lichen sclerosus of female genitalia Vision disorder Mumps (~1949) Measles (~1949) Chicken pox (~1949) Hearing loss Frequent UTI Hypertension Hyperlipidemia Chronic vaginitis (04/01/16) Osteoarthritis of left hip (04/01/16) Edema of foot (11/01/15) Surgical History Hx of inguinal hernia repair History of left hip replacement Anesthesia Status post hernia repair (~1964) Family History Brother Age: 87 Detached retina Father Cancer Loud snoring Mother Hypertension Stroke Sister Diabetes mellitus Social History marital status: number of children: 1 household members: spouse lives independently: Yes occupational status: previously employed Smoking Status: Never smoker alcohol intake: never substance use type: does not use eating out: rarely or never Type(s) of exercise: walking and bicycling frequency: 1-2 times per week duration: 45-60 minutes/day Discharge Assessment & Plan Assessment and Plan Assessment: 1. Multi atrial tachycardia (no findings of atrial fibrillation and review of telemetry strips or EKGs), improved. Echocardiogram normal 2. QT prolongation, stable. Magnesium normal Avoid medications or combinations that further QT prolongation Continue telemetry 3. Postoperative encephalopathy, resolved. Appears resolved, stop Zyprexa at this point and monitor 4. Anastomotic leak status post colostomy, resolved. 5. Neurogenic bladder with chronic in and out Dia catheterization. She will be discharged with a Dia catheter for urine retention and this can transitioned to in and out catheter after follow up with General surgery and Dia removal. Plan of Treatment: Dsicharge to SNF. Dia will be left in until follow up with General surgery and then transitioned back to in and out catheterization for retention and neurogenic bladder. In addition ADÁN drain will remain in place until follow up with surgery, Dr. Roche. Discharge Plan Discharge Plan Patient Disposition: SNF Transfer to: [facility] Under care of provider: SNF provider Provider Discharge Comment: Stays stable for discharge, leave both ADÁN drain and Dia catheter in until follow up with Dr. Roche surgery within the next 5-7 days. Discharge orders & Medications Prescriptions: New hydrocodone-acetaminophen 5-325 mg Tablet 1 tab PO Q4H PRN (Reason: Pain, Moderate (4-6)) Qty: 14 0RF amoxicillin-pot clavulanate 875-125 mg tablet 1 tab PO BID Qty: 14 0RF Continued omeprazole 40 mg capsule,delayed release(DR/EC) 40 mg PO DAILY diphenoxylate-atropine 2.5-0.025 mg tablet 1 tab PO 4XD PRN (Reason: diarrhea) CA PANTOTHENATE/FOLIC ACID/VIT (MULTIVITAMIN) 1 tab PO Q DAY Qty: 0 spironolactone 25 mg tablet 25 mg PO DAILY Qty: 90 3RF atorvastatin 40 mg tablet 40 mg PO BEDTIME Qty: 90 3RF ipratropium bromide 42 mcg (0.06 %) spray,non-aerosol 2 spray intranasal BID Qty: 15 1RF atenolol 25 mg tablet 25 mg PO BID Qty: 180 1RF vitamin d 25 mcg capsule 1 cap PO DAILY acidophilus-pectin, citrus [Probiotic Acidophilus-Pectin] 100 million cell-10 mg capsule 1 cap PO DAILY azelastine 137 mcg (0.1 %) aerosol,spray 2 spray intranasal BID PRN (Reason: Nasal Congestion) cranberry 500 mg capsule 4,200 mg PO DAILY ondansetron 4 mg tablet,disintegrating 4 mg PO Q6H PRN (Reason: nausea and vomiting) Qty: 10 0RF Discontinued (DME) lancets [TechLITE Lancets] 28 gauge misc See Rx Instructions .ROUTE .COMPLEX Qty: 100 2RF Dose Instruction: DIRECTED TO TEST BLOOD SUGAR DAILY Rx Instructions: DIRECTED TO TEST BLOOD SUGAR DAILY (DME) Disabled Parking Permit See Rx Instructions .ROUTE .MEDSUPPLY Qty: 1 0RF Rx Instructions: I find this patient to be medically disabled and qualified for Disabled Parking as indicated and signed on the accompanying Disabled Parking Application for Individuals. Follow up/Referrals: Anthony Flores MD [Primary Care Provider, [facility]] Discharge Health Status Multidrug resistant organism: No MDRO Diet/Activity/Treatments Diet: Regular Catheter comment: Dia due to neurogenic bladder, unable to self cath due to new colostomy Oxygen: Home CPAP at night with pressures min 5 to max 15, room air during the day Skin/Wound/Dressing Care Report to your healthcare provider any signs of infection, such as:: chills, fever, night sweats and unusual drainage Special Rehabilitation Services Reason for rehabilitation: Recovery r/t decondition Rehab type: Physical therapy and Occupational therapy Visit Report/Discharge Packet Stand Alone Forms: Patient Portal/API Discharge Data Primary Care Provider: Anthony Flores Quality VTE Deep Vein Thrombosis/Pulmonary Embolism Present on Admission: No
--- NOTE | 2025-10-03 13:51 | CM.DPC ---
DCP Discharge SNF Per MD, pt could benefit from SNF for her J drain and new colostomy and some ongoing PT/OT for strengthening. Per [employer], pt needed min A with bed mobility and once up with [facility]WW more CGA but could benefit from SNF still, [facility] is [facility]. SW made referral to [facility] and they confirm they can accept, MD states plan of d/c with arreola for at least a week due to pt's neurogenic bladder and inability to self cath like at baseline due to new colostomy. Pt to take own home CPAP and to go with J Drain. Faxed d/c summary, PASRR, signed med list, scripts and orders to [facility] to review. Updated jumpbasting armhole baster, NAHED, RN and provided number to call report. [facility] can transport now at [phone]. SUSAN Toro
--- NOTE | 2025-10-03 13:59 | PC.NURSE ---
Report called to Sunita RN at [facility] and all questions answered. Pt is packed up and ready to be discharged out to [facility] when transport arrives.
--- NOTE | 2025-10-03 14:45 | PC.NURSE ---
Pt out via w/c by [facility] personnel with all belongings.
== END 2025-10-03 14:46 | DRG 329 ==
LOC: ED 15:32 → AC 15:51
PROVIDERS: Internal Medicine; Physician Assistant Surgical; Surgery Surgical Critical Care; Admitting Provider Surgery; Emergency Provider Physician Assistant; PCP Family Medicine; Visit Provider Surgery
PROC: 0D1N0Z4 Bypass Sigmoid Colon to Cutaneous, Open Approach (ICD-10-PCS; CPT 49000; principal; 2025-09-28 16:30)
DX: K91.89 Other postprocedural complications and disorders of digestive system (principal); K63.1 Perforation of intestine (nontraumatic); K65.9 Peritonitis, unspecified; I47.19 Other supraventricular tachycardia; G93.49 Other encephalopathy; Z82.49 Family history of ischemic heart disease and other diseases of the circulatory system; Z79.890 Hormone replacement therapy; Z88.2 Allergy status to sulfonamides; Z88.8 Allergy status to other drugs, medicaments and biological substances; Y83.6 Removal of other organ (partial) (total) as the cause of abnormal reaction of the patient, or of later complication, without mention of misadventure at the time of the procedure; Z90.49 Acquired absence of other specified parts of digestive tract; I44.0 Atrioventricular block, first degree; K58.2 Mixed irritable bowel syndrome; N31.9 Neuromuscular dysfunction of bladder, unspecified; R33.9 Retention of urine, unspecified
CPT/HCPCS: 36415; 74177; 80048; 80053; 82962; 83605; 83690; 83735; 84443; 84484; 85025; 85610; 85730; 86850; 86900; 86901; 93005; 93010; 93306; 96374; 97116; 97162; 97530; 99284; J0131; J0330; J0666; J1171; J1650; J2270; J2405; J2543; J3010; J7030; J7050; J7120; Q9967

== ENCOUNTER → 2025-10-19 09:40 | Outpatient (CLI) | payer MEDICARE, BC, SELFPAY ==
[2025-09-28 20:40] VITALS: BMI 22.4
== END ==
LOC: WC 09:42
PROVIDERS: Family Provider Family Medicine; PCP Family Medicine; Referring Provider Family Medicine; Visit Provider Nurse Practitioner Family
DX: T81.31XA Disruption of external operation (surgical) wound, not elsewhere classified, initial encounter (principal); S31.103A Unspecified open wound of abdominal wall, right lower quadrant without penetration into peritoneal cavity, initial encounter; S31.109A Unspecified open wound of abdominal wall, unspecified quadrant without penetration into peritoneal cavity, initial encounter; E11.628 Type 2 diabetes mellitus with other skin complications; Z93.3 Colostomy status
CPT/HCPCS: 99203; 99214

== ENCOUNTER → 2025-10-26 14:24 | Outpatient (CLI) | payer MEDICARE, BC, SELFPAY ==
[2025-09-28 20:40] VITALS: BMI 22.4
== END ==
LOC: WC 14:28
PROVIDERS: Family Provider Family Medicine; PCP Family Medicine; Referring Provider Family Medicine; Visit Provider Surgery
DX: T81.31XA Disruption of external operation (surgical) wound, not elsewhere classified, initial encounter (principal); S31.103A Unspecified open wound of abdominal wall, right lower quadrant without penetration into peritoneal cavity, initial encounter
CPT/HCPCS: 97602; 99213

== ENCOUNTER → 2025-11-01 14:57 | Outpatient (CLI) | payer MEDICARE, BC, SELFPAY ==
[2025-09-28 20:40] VITALS: BMI 22.4
== END ==
LOC: WC 14:58
PROVIDERS: Family Provider Family Medicine; PCP Family Medicine; Referring Provider Family Medicine; Visit Provider Surgery
DX: T81.89XD Other complications of procedures, not elsewhere classified, subsequent encounter (principal); S31.103D Unspecified open wound of abdominal wall, right lower quadrant without penetration into peritoneal cavity, subsequent encounter
CPT/HCPCS: 99213

== ENCOUNTER → 2025-11-11 09:07 | Outpatient (CLI) | payer MEDICARE, BC, SELFPAY ==
[2025-09-28 20:40] VITALS: BMI 22.4
== END ==
LOC: WC 09:23
PROVIDERS: Family Provider Family Medicine; PCP Family Medicine; Referring Provider Family Medicine; Visit Provider Physician Assistant
DX: Z93.3 Colostomy status (principal)
CPT/HCPCS: 99212

== ENCOUNTER → 2025-11-15 10:03 | Outpatient (CLI) | payer MEDICARE, BC, SELFPAY ==
[2025-09-28 20:40] VITALS: BMI 22.4
== END ==
LOC: WC 10:05
PROVIDERS: Family Provider Family Medicine; PCP Family Medicine; Referring Provider Family Medicine; Visit Provider Surgery
DX: Z93.3 Colostomy status (principal)
CPT/HCPCS: 99212